=== PATIENT | male | born 1945 | race Caucasian/White ===

== ENCOUNTER → 2017-04-15 07:50 | Outpatient (CLI) | payer MEDICARE, OTHER, SELFPAY ==
[2017-04-15 07:59] LABS: Mucous, Urine 0 SEEN /hpf (<or=2+)
[2017-04-15 08:21] LABS: Color, Urine Yellow (Yellow); Glucose, Dipstick Normal (Normal); Ketone-Dipstick Negative (Negative); Leukocyte Esterase-Dipstick 100 /ul (Negative); Nitrite-Dipstick Negative (Negative); Occult Blood-Urine 10 /ul (Negative); Protein-Dipstick 30 mg/dl (Negative); Urine Bilirubin Dipstick Negative (Negative); Urine Clarity Clear (Clear); Urine Urobilinogen Normal (Normal)
[2017-04-15 08:29] LABS: Absolute Lymphocyte Count 2.73 X10^3/ul (0.83-4.51); Basophil# 0.03 X10^3/uL; Basophil% 0.3 % (0-1); Eosinophil# 0.41 X10^3/uL; Eosinophils% 4.6 % (0-5); Hematocrit 45.6 % (40-54); Hemoglobin 15.1 g/dl (13.0-16.5); Lymphocyte # 2.73 X10^3/ul (4.0); Lymphocyte % 30.4 % (19-41); Mean Corp Hgb Conc 33.1 g/gl (32-36); Mean Corpuscular Hgb 31.3 pg (27.0-32.0); Mean Corpuscular Volume 94.6 fL (80-94); Mean Platelet Vol. 10.2 fl (6.2-12.0); Monocyte# 0.83 X10^3/uL; Monocyte% 9.2 % (0-10); Neutrophil # 4.97 X10^3/uL (2.7-7.7); Neutrophil % 55.3 % (47-70); Platelet Count 208 K/mm3 (150-450); RBC Distribution Width CV 13.9 % (11.6-14.6); RBC Distribution Width SD 47.8 fl (35.1-43.9); Red Blood Count 4.82 M/mm3 (4.6-6.2)
[2017-04-15 08:37] LABS: Bacteria RARE /hpf (None Seen); Red Blood Cells-Urine 0-5 SEEN /hpf (0-5); Squamous Epithelial Cells - UA 0-5 SEEN /hpf (0-5); White Blood Cells 5-10 SEEN /hpf (0-5)
[2017-04-15 08:40] LABS: POSITIVE COUNT NO; POSITIVE DIFFERENTIAL NO; POSITIVE MORPHOLOGY NO
[2017-04-15 08:42] LABS: Microalbumin,Random Urine 46.4 mg/L (NO RANGE EST.); Microalbumin:Creatinine Ratio 17.2 mg/g CRE (<30 mg/g CRE)
[2017-04-15 09:03] LABS: AST(SGOT) 20 U/L (15-37); Alanine Aminotransfer ALT/SGPT 33 U/L (16-61); Albumin, Serum 3.5 g/dL (3.2-5.0); Alkaline Phosphatase 41 U/L (45-117); Anion Gap 4 (5-15); BUN 19 mg/dL (7-18); BUN/Creat Ratio 15.6 RATIO (10-20); Bilirubin, Direct 0.19 mg/dL (0.00-0.30); Calcium,Total 8.5 mg/dL (8.5-10.1); Chloride 106 mmol/L (98-107); Cholesterol 141 mg/dL (200); Creatinine, Serum 1.22 mg/dL (0.70-1.30); EST Glomerular Filtration Rate 62 mL/min (>60); Est Glom Filt Rate - Afr Amer 75 mL/min (>60); Globulin 3.6 g/dL (2.2-4.2); Glucose 107 mg/dL (74-106); High Density Lipoprotein 37 mg/dL; Potassium 3.8 mmol/L (3.5-5.1); Protein, Total 7.1 g/dL (6.4-8.2); Sodium Level 140 mmol/L (136-145); Triglycerides 133 mg/dL; Very Low Density Lipoprotein 27 mg/dL (5-40)
== END ==
PROVIDERS: Family Provider Internal Medicine; PCP Internal Medicine; Visit Provider Nurse Practitioner Family
DX: E78.5 Hyperlipidemia, unspecified (principal); Z79.899 Other long term (current) drug therapy; E03.9 Hypothyroidism, unspecified; E78.00 Pure hypercholesterolemia, unspecified; I25.10 Atherosclerotic heart disease of native coronary artery without angina pectoris
CPT/HCPCS: 36415; 80053; 80061; 81001; 82043; 82248; 82570; 84443; 85025

== ENCOUNTER → 2017-04-21 11:58 | Outpatient (CLI) | payer MEDICARE, OTHER, SELFPAY ==
[2017-04-21 13:12] LABS: PSA,Total- Diagnostic < 0.01 ng/mL (0.0-4.0)
== END ==
PROVIDERS: Family Provider Internal Medicine; PCP Internal Medicine; Visit Provider Urology
DX: C61 Malignant neoplasm of prostate (principal)
CPT/HCPCS: 36415; 84153

== ENCOUNTER → 2017-07-24 08:25 | Outpatient (CLI) | payer MEDICARE, OTHER, SELFPAY ==
[2017-07-24 09:38] LABS: PSA,Total- Diagnostic < 0.01 ng/mL (0.0-4.0)
== END ==
PROVIDERS: Family Provider Internal Medicine; PCP Internal Medicine; Visit Provider Urology
DX: C61 Malignant neoplasm of prostate (principal)
CPT/HCPCS: 36415; 84153

== ENCOUNTER → 2017-11-21 08:31 | Outpatient (CLI) | payer MEDICARE, OTHER, SELFPAY ==
[2017-11-21 09:09] LABS: Absolute Lymphocyte Count 2.34 X10^3/ul (0.83-4.51); Absolute Neutrophil Count 4.6 X10^3/uL (2.0-7.7); Basophil# 0.03 X10^3/uL; Basophil% 0.4 % (0-1); Eosinophil# 0.39 X10^3/uL; Eosinophils% 4.9 % (0-5); Hematocrit 46.3 % (40-54); Hemoglobin 15.4 g/dl (13.0-16.5); Lymphocyte # 2.34 X10^3/ul (4.0); Lymphocyte % 29.1 % (19-41); Mean Corp Hgb Conc 33.3 g/gl (32-36); Mean Corpuscular Hgb 31.4 pg (27.0-32.0); Mean Corpuscular Volume 94.5 fL (80-94); Mean Platelet Vol. 10.5 fl (6.2-12.0); Monocyte# 0.66 X10^3/uL; Monocyte% 8.2 % (0-10); Neutrophil % 57.3 % (47-70); Platelet Count 206 K/mm3 (150-450); RBC Distribution Width CV 13.9 % (11.6-14.6); RBC Distribution Width SD 47.9 fl (35.1-43.9)
[2017-11-21 09:10] LABS: POSITIVE COUNT NO; POSITIVE DIFFERENTIAL NO; POSITIVE MORPHOLOGY NO
[2017-11-21 09:47] LABS: AST(SGOT) 22 U/L (15-37); Alanine Aminotransfer ALT/SGPT 29 U/L (16-61); Albumin, Serum 3.6 g/dL (3.2-5.0); Alkaline Phosphatase 39 U/L (45-117); Anion Gap 4 (5-15); BUN 21 mg/dL (7-18); BUN/Creat Ratio 18.6 RATIO (10-20); Bilirubin, Direct 0.21 mg/dL (0.00-0.30); Calcium,Total 8.8 mg/dL (8.5-10.1); Chloride 108 mmol/L (98-107); Cholesterol 117 mg/dL (200); Creatinine, Serum 1.13 mg/dL (0.70-1.30); EST Glomerular Filtration Rate 67 mL/min (>60); Est Glom Filt Rate - Afr Amer 81 mL/min (>60); Globulin 3.5 g/dL (2.2-4.2); Glucose 101 mg/dL (74-106); High Density Lipoprotein 36 mg/dL; Potassium 4.1 mmol/L (3.5-5.1); Protein, Total 7.1 g/dL (6.4-8.2); Sodium Level 140 mmol/L (136-145); Thyroid Stim Hormone (TSH) 2.27 uIU/mL (0.358-3.74); Triglycerides 99 mg/dL; Very Low Density Lipoprotein 20 mg/dL (5-40)
[2017-11-23 12:06] LABS: CHOLESTEROL TOTAL 126 mg/dL (100-199); HDL-C 38 mg/dL (>39); HDL-P TOTAL 29.5 umol/L (>=30.5); SMALL LDL-P 538 nmol/L (<=527); TRIGLYCERIDES 102 mg/dL (0-149)
[2017-11-23 13:58] LABS: LDL SIZE 20.4 nm (>20.5); LDL-C 68 mg/dL (0-99); LDL-P 998 nmol/L (<1000); LP-IR SCORE ** 64 (<=45)
== END ==
PROVIDERS: Family Provider Internal Medicine; PCP Internal Medicine; Referring Provider Nurse Practitioner Family; Visit Provider Nurse Practitioner Family
DX: I25.10 Atherosclerotic heart disease of native coronary artery without angina pectoris (principal); E03.9 Hypothyroidism, unspecified; E78.00 Pure hypercholesterolemia, unspecified
CPT/HCPCS: 36415; 80053; 80061; 82248; 83704; 84443; 85025

== ENCOUNTER → 2018-01-13 11:02 | Outpatient (CLI) | payer MEDICARE, OTHER, SELFPAY ==
[2018-01-13 12:01] LABS: PSA,Total- Diagnostic < 0.01 ng/mL (0.0-4.0)
== END ==
PROVIDERS: Family Provider Internal Medicine; PCP Internal Medicine; Referring Provider Urology; Visit Provider Urology
DX: C61 Malignant neoplasm of prostate (principal)
CPT/HCPCS: 36415; 84153

== ENCOUNTER → 2018-04-29 11:36 | Outpatient (CLI) | payer MEDICARE, OTHER, SELFPAY ==
--- NOTE | 2018-04-29 11:43 | RAD_ITS ---
STUDY: X-RAY CHEST REASON FOR EXAM: Male, 73 years old. Cough. TECHNIQUE: PA and lateral chest. COMPARISON: 01/02/2017. FINDINGS: Median sternotomy. Hiatal hernia. Moderately large. Clear bilateral lungs. No cardiomegaly. Normal mediastinal silhouette, leonel, pleural margins, with no acute osseous or upper abdominal process. Scoliosis. Kyphosis. RAD/Chest PA and Lateral IMPRESSION: No acute cardiopulmonary process. Electronically Signed: Jaden Birmingham MD at 18:29 EST Tel , Service support ,
== END ==
PROVIDERS: Family Provider Internal Medicine; PCP Internal Medicine; Referring Provider Nurse Practitioner; Visit Provider Nurse Practitioner
DX: R05 Cough (principal)
CPT/HCPCS: 71046

== ENCOUNTER → 2018-05-25 08:37 | Outpatient (CLI) | payer MEDICARE, OTHER, SELFPAY ==
--- NOTE | 2018-05-25 08:39 | ECHOD_ITS ---
Reason For Study: MVP Procedure This was a 2D Doppler, Color Flow transthoracic echocardiogram. Exam performed in department. Left Ventricle Normal LV size. The estimated ejection fraction is 60 %. Stage 2 diastolic dysfunction. No regional wall motion abnormalities noted. Right Ventricle Normal RV size. Normal systolic function. Atria The left atrium is mildly enlarged. Normal right atrium. Mitral Valve Bileaflet diffuse mitral valve thickening. Posterior leaflet mitral valve prolapse. Mild-Moderate (1-2+) anteriorly directed mitral valve insufficiency. Tricuspid Valve Normal tricuspid valve. Mild (1+) tricuspid valve insufficiency. Pulmonary artery systolic pressure is 34 mmHg. Aortic Valve Trisinus/trileaflet aortic valve. Mild (1+) eccentric aortic valve insufficiency. Pulmonic Valve Normal pulmonic valve. Great Vessels Normal aortic root. The pulmonary artery is normal size. Normal inferior vena cava. Pericardium/Pleural No pericardial effusion. MMode/2D Measurements & Calculations LVIDd: 5.2 cm IVSd: 1.00 cm Ao root diam: 3.4 cm LVIDs: 2.7 cm LVPWd: 1.0 cm RVDd: 3.9 cm FS: 48.6 % LAV(MOD-bp): 60.3 ml LA A4 area: 21.9 cm2 LA dimension(2D): 3.9 cm LAV(MOD-bp) Indexed: 29.8 ml/m2 LAV(MOD-sp2): 55.6 ml LAV(MOD-sp4): 63.6 ml RA A4 area: 14.3 cm2 Doppler Measurements & Calculations MV E max bill: 126.8 cm/sec Lat Peak E' Bill: 12.7 cm/sec Med Peak E' Bill: 6.4 cm/sec MV A max bill: 70.7 cm/sec E/E' lat: 10.0 E/E' med: 19.8 MV E/A: 1.8 Ao V2 max: 157.7 cm/sec AI max bill: 317.6 cm/sec LV V1 max: 107.5 cm/sec Ao max P.0 mmHg AI max P.3 mmHg LV V1 max P.6 mmHg AI dec slope: 169.6 cm/sec2 AI P1/2t: 548.5 msec PA V2 max: 168.9 cm/sec TR max bill: 274.9 cm/sec TR max P.3 mmHg Interpretation Summary Normal LV size. The estimated ejection fraction is 60 %. Stage 2 diastolic dysfunction. Mild (1+) tricuspid valve insufficiency. Pulmonary artery systolic pressure is 34 mmHg. Compared to prior study, there is no significant change. Ordering Physician: Dax Rodriguez Referring Physician: Shira Borjas M.D. Performed By: Inés, Caty, RDCS
== END ==
PROVIDERS: Family Provider Internal Medicine; PCP Internal Medicine; Referring Provider Internal Medicine Cardiovascular Disease; Visit Provider Internal Medicine Cardiovascular Disease
DX: Z98.890 Other specified postprocedural states (principal)
CPT/HCPCS: 93306

== ENCOUNTER → 2018-06-01 08:38 | Outpatient (CLI) | payer MEDICARE, OTHER, SELFPAY ==
[2017-11-25 10:42] VITALS: BMI 25.2
[2018-06-01 10:24] LABS: AST(SGOT) 28 U/L (15-37); Alanine Aminotransfer ALT/SGPT 36 U/L (16-61); Albumin, Serum 3.7 g/dL (3.2-5.0); Alkaline Phosphatase 40 U/L (45-117); Bilirubin, Direct 0.21 mg/dL (0.00-0.30); Cholesterol 125 mg/dL (200); Globulin 3.1 g/dL (2.2-4.2); High Density Lipoprotein 39 mg/dL; Protein, Total 6.8 g/dL (6.4-8.2); Triglycerides 123 mg/dL; Very Low Density Lipoprotein 25 mg/dL (5-40)
== END ==
PROVIDERS: Family Provider Internal Medicine; PCP Internal Medicine; Referring Provider Nurse Practitioner Family; Visit Provider Nurse Practitioner Family
DX: E78.5 Hyperlipidemia, unspecified (principal)
CPT/HCPCS: 36415; 80061; 80076

== ENCOUNTER → 2018-06-11 12:07 | Outpatient (CLI) | payer MEDICARE, OTHER, SELFPAY ==
[2018-06-02 09:50] VITALS: BMI 25.5
[2018-06-15 12:06] LABS: Rubeola IgG Ab > 300.0 AU/mL (Immune >29.9)
== END ==
PROVIDERS: Family Provider Internal Medicine; PCP Internal Medicine; Referring Provider Internal Medicine; Visit Provider Internal Medicine
DX: Z78.9 Other specified health status (principal)
CPT/HCPCS: 36415; 86765

== ENCOUNTER → 2018-07-24 | Outpatient (CLI) | payer MEDICARE, OTHER, SELFPAY ==
[2018-06-02 09:50] VITALS: BMI 25.5
[2018-07-24 13:01] LABS: PSA,Total- Diagnostic < 0.01 ng/mL (0.0-4.0)
== END | disposition home or self-care (01) ==
LOC: MTLAB 10:26
PROVIDERS: Family Provider Internal Medicine; PCP Internal Medicine; Referring Provider Urology; Visit Provider Urology
DX: C61 Malignant neoplasm of prostate (principal)
CPT/HCPCS: 36415; 84153

== ENCOUNTER 2018-10-07 11:05 | Observation (INO) | payer MEDICARE, OTHER, SELFPAY ==
[2018-06-02 09:50] VITALS: BMI 25.5
[2018-10-07] VITALS (11 sets, daily range): BP systolic 115–149; BP diastolic 63–77; PULSE 49–65; RESP 16–19; TEMP 36.7–37.1; O2SAT 95–99; BMI 22.1; BMI 24.7
--- NOTE | 2018-10-07 11:17 | EKG12_ITS ---
Test Reason : Blood Pressure : / mmHG Vent. Rate : 055 BPM Atrial Rate : 055 BPM P-R Int : 162 ms QRS Dur : 134 ms QT Int : 450 ms P-R-T Axes : 042 -50 011 degrees QTc Int : 430 ms Sinus bradycardia Left axis deviation Left ventricular hypertrophy with QRS widening Abnormal ECG Confirmed by ALEX DAWN ([id number]), metropolitan editor RAPHAEL LEVINE ([id number]) on 10/08/2018 2:22:33 PM Referred By: SHERRY/SHAMA Confirmed By:ALEX DAWN
[2018-10-07 11:36] LABS: Absolute Lymphocyte Count 1.69 X10^3/uL (0.83-4.51); Basophil# 0.02 X10^3/uL; Basophil% 0.3 % (0-1); Eosinophil# 0.36 X10^3/uL; Eosinophils% 5.2 % (0-5); Hematocrit 46.5 % (40-54); Hemoglobin 15.9 g/dL (13.0-16.5); Lymphocyte # 1.69 X10^3/ul (4.0); Lymphocyte % 24.4 % (19-41); Mean Corp Hgb Conc 34.2 g/dL (32-36); Mean Corpuscular Hgb 32.8 pg (27.0-32.0); Mean Corpuscular Volume 95.9 fL (80-94); Mean Platelet Vol. 10.3 fl (6.2-12.0); Monocyte# 0.86 X10^3/uL; Monocyte% 12.4 % (0-10); NRBC Flagged by Analyzer 0 % (0-5); Neutrophil # 3.99 X10^3/uL (2.7-7.7); Neutrophil % 57.4 % (47-70); Platelet Count 196 K/mm3 (150-450); RBC Distribution Width CV 13.5 % (11.6-14.6); RBC Distribution Width SD 48.1 fl (35.1-43.9); Red Blood Count 4.85 M/mm3 (4.6-6.2); White Blood Count 6.9 K/mm3 (4.4-11.0)
--- NOTE | 2018-10-07 11:40 | RAD_ITS ---
STUDY: X-RAY CHEST REASON FOR EXAM: Male, 73 years old. Chest pain, shortness of breath. TECHNIQUE: Single AP portable view of the chest. COMPARISON: 04/29/2018 FINDINGS: Status post median sternotomy. The lungs are clear and expanded. There is no demonstrated pleural abnormality. Normal size heart. Suspect a moderate-sized hiatal hernia. Normal visualized pulmonary arteries. Normal visualized aortic arch and descending thoracic aorta. Normal visualized thoracic spine. Normal visualized ribs, clavicles, and shoulders. There is no demonstrated abnormality of the visualized soft tissue structures of the upper abdomen. RAD/Chest 1 View (Portable) IMPRESSION: No active disease. Electronically Signed: Jaden Solis MD at 12:01 EDT Tel , Service support ,
[2018-10-07 11:52] LABS: Anion Gap 4 (5-15); BUN 24 mg/dL (7-18); BUN/Creat Ratio 18.8 RATIO (10-20); Calcium,Total 8.6 mg/dL (8.5-10.1); Chloride 106 mmol/L (98-107); Creatinine, Serum 1.28 mg/dL (0.70-1.30); EST Glomerular Filtration Rate 58 mL/min (>60); Est Glom Filt Rate - Afr Amer 70 mL/min (>60); Estimated Creatinine Clearance 47.99 ml/min; Glucose 88 mg/dL (74-106); Potassium 4.1 mmol/L (3.5-5.1); Sodium Level 137 mmol/L (136-145)
--- NOTE | 2018-10-07 11:54 | ED.DCSUM_ITS ---
- ER Visit Summary Date of Service: 10/07/18 Chief Complaint: Diaphoretic and nauseated in the yard. History of Present Illness: The patient is a 73 M pulling weeds in his yard. He stood up he felt nauseated, diaphoretic and lightheaded. Denied any chest pain. Second time he felt like this was more than 20 years ago he had an DC. At that time he had a triple bypass. He states he has had a cardiac catheterization in the last 2 to 3 years which showed 1 of his bypasses was occluded to still open. He is not needing any cardiac stents. He also has mitral valve prolapse which are watching to see if he will need valve surgery. He denies any recent exertional chest pain. Said he presented atypically when he had his initial cardiac presentation 20 years ago. He does have mild exertional dyspnea. Physical Examination: Older male no acute distress. Vital signs are stable a febrile. Pulse ox 90% on 2 L no hypoxia. H EENT exam unremarkable. Neck nontender no JVD. Lungs clear to auscultation bilaterally. Heart bradycardic rate of 55 with a 4-6 systolic ejection murmur consistent with mitral valve prolapse. Abdomen soft nontender normal bowel sounds no peritoneal signs. Patient moving all 4 extremities. Calves are nontender without edema or cords. Neurologically is awake and alert. Test Results: Initial EKG shows sinus rhythm with sinus bradycardia rate of 55 with no acute signs of DC or ischemia. He does have LVH. This is unchanged from an EKG of 2012. Chest x-ray shows normal cardiac silhouette mediastinum. One view read both by myself and the radiologist. CBC was normal white count 6. Hemoglobin 15. Chemistries unremarkable creatinine 1.2. Normal. Emergency Department Course and Treatment: Patient undergo cardiac evaluation. Repeat exam at 1328 PM the patient is doing well. He and I and his discussed all his test results at length. Due to his atypical presentation with his initial cardiac disease 20 years ago and this being a similar presentation with known coronary disease we are going to have him admitted for further evaluation. I will speak to the hospitalist and encouraged him to obtain a cardiology consult. Treatment Plan: Speak to the hospitalist about PCU admission and cardiology consult. Disposition: Admission Impression: Acute atypical exertional episode of uncertain etiology History of CAD with a prior triple bypass with known This note was generated with Dragon dictation software. It may contain incorrect words, spelling, and punctuation that were not noted in review of the chart prior to signing ED Disposition - Plan for ED Patient: Referrals: Shira Borjas DO [Primary Care Provider] -
--- NOTE | 2018-10-07 13:39 | HP.PCM_ITS ---
Problem List (1) Chest pain Status: Acute Qualifiers: Chest pain type: unspecified Qualified Code(s): R07.9 - Chest pain, unspecified (2) Hypothyroidism Status: Chronic Qualifiers: Hypothyroidism type: unspecified Qualified Code(s): E03.9 - Hypothyroidism, unspecified (3) Atherosclerosis of coronary artery bypass graft of ambler heart without angina pectoris Status: Chronic Comment: Known occluded SVG to CX per [facility] 01/06/[address] Rodriguez @ [facility] [place] (4) Hyperlipidemia Status: Chronic Qualifiers: Hyperlipidemia type: pure hypercholesterolemia Qualified Code(s): E78.00 - Pure hypercholesterolemia, unspecified; E78.0 - Pure hypercholesterolemia (5) Nonrheumatic mitral valve stenosis with insufficiency Status: Chronic (6) Aortocoronary bypass status Status: Chronic Comment: CABG with saphenous vein grafts Diag 1 CFX, SWANSON graft to LAD, 1994; (7) Old myocardial infarction Status: Chronic (8) Prostate cancer Status: Chronic History of Present Illness Date of Admission: 10/07/18 Chief Complaint: Chest pain, near syncope The patient is a 73 y/o M w/ PMHx: CAD s/p CABG x 3, HTN, HLD, Hx Prostate CA s/p prostatectomy, Valvular Heart Disease (MV), Hypothyroidism who presents to the [facility] [place] ED on 10/07/18 with history of working outside, pulling weeds earlier in the morning with sudden onset once he had been out for this amount of time of lightheadedness, nausea following standing up from pulling leads with mild dyspnea with no associated chest pain although he does admit several episodes intermittently of exertional dyspnea which he specifically notes has been occurring while he is walking his dog. Work-up in the ED included T 98.1, heart rate 62, BP 149/72, respiratory 18, 97% on room air, BC with WBC 6.9, hemoglobin 15.9, platelet 196 without evidence left shift, BMP not market appearing, troponin less than 0.015, chest x-ray with no acute cardiopulmonary findings, EKG with SB without acute evidence of ischemia. In the ED patient administered aspirin, Tylenol therapies. Past Medical History Past Medical History (Chronic Problems): Chronic Problems (Last Reviewed 06/02/18 @ 09:59 by Dax Rodriguez MD) Hypothyroidism (Chronic) History of left heart catheterization (Chronic) 1994 prior to CABG; 06/21/2003 @ [facility] per Dr. Beaulieu; 01/06/[address] Rodriguez @ [facility] [place] Atherosclerosis of coronary artery bypass graft of ambler heart without angina pectoris (Chronic) Known occluded SVG to CX per [facility] 01/06/[address] Rodriguez @ [facility] [place] Hyperlipidemia (Chronic) Atherosclerotic heart disease of ambler coronary artery without angina pectoris (Chronic) CABG X 3 12/15/1994:SWANSON to LAD, SVG to Dx and SVG to Cx Nonrheumatic mitral valve stenosis with insufficiency (Chronic) Aortocoronary bypass status (Chronic) CABG with saphenous vein grafts Diag 1 CFX, SWANSON graft to LAD, 1994; terminologist use of drug (Chronic) Old myocardial infarction (Chronic) Nonrheumatic mitral (valve) prolapse (Chronic) Prostate cancer (Chronic) Medical History: Medical History (Last Reviewed 06/02/18 @ 09:59 by Dax Rodriguez MD) Hypothyroidism (Chronic) E03.9 Atherosclerosis of coronary artery bypass graft of ambler heart without angina pectoris (Chronic) I25.810 Known occluded SVG to CX per [facility] 01/06/[address] Rodriguez @ [facility] [place] Hyperlipidemia (Chronic) E78.5 Atherosclerotic heart disease of ambler coronary artery without angina pectoris (Chronic) I25.10 CABG X 3 12/15/1994:SWANSON to LAD, SVG to Dx and SVG to Cx Nonrheumatic mitral valve stenosis with insufficiency (Chronic) I34.2 Old myocardial infarction (Chronic) I25.2 Nonrheumatic mitral (valve) prolapse (Chronic) I34.1 Prostate cancer (Chronic) C61 Essential hypertension I10 Allergies bee venom protein (honey bee) Allergy (Unknown, Verified 06/02/18 09:49) Unknown Home Medications: Ambulatory Orders Medication Instructions Recorded Aspirin [Aspirin, Baby] 81 mg PO DAILY 01/14/14 Cholecalciferol (VIT D3) [Vitamin 1,000 unit PO DAILY 01/14/14 D3] Multivitamins,Therapeutic 1 tab PO DAILY 01/14/14 [Multivitamin] Latanoprost 0.005% [Xalatan 1 drp EACH EYE QHS 01/03/17 Opthalmic] [place]-3 Fatty Acids/Fish Oil 1 ea PO DAILY 01/03/17 [[place] 3 Fish Oil Softgel] metoprolol tartrate 25 mg tablet 12.5 mg PO BID #90 tab 08/11/17 ramipril 10 mg capsule 10 mg PO BID #180 cap 08/11/17 hydrochlorothiazide 25 mg tablet 12.5 mg PO DAILY #45 tab 04/13/18 levothyroxine 100 mcg tablet 100 mcg PO DAILY #90 tab 06/10/18 Cinnamon Bark [Cinnamon] 500 mg PO DAILY 10/07/18 Magnesium Oxide [Magnesium] 500 mg PO DAILY 10/07/18 Rosuvastatin Calcium 5 mg PO QHS 10/07/18 Ubidecarenone/Vit E Acet [Co Q-10 1 cap PO DAILY 10/07/18 100 mg Softgel] Vitamin B Complex [B Complex # 1] 1 tab PO DAILY 10/07/18 Surgical History: Surgical History (Last Reviewed 06/02/18 @ 09:59 by Dax Rodriguez MD) History of left heart catheterization (Chronic) Z98.890 1994 prior to CABG; 06/21/2003 @ [facility] per Dr. Beaulieu; 01/06/[address] Rodriguez @ [facility] [place] Aortocoronary bypass status (Chronic) Z95.1 CABG with saphenous vein grafts Diag 1 CFX, SWANSON graft to LAD, 1994; H/O prostatectomy (Resolved) Z98.890, Z90.79 March [address] Linares Surgical History: - - CABG x 3, prostatectomy, tonsillectomy, pilonidal cyst surgery, left elbow surgery with hardware. Psychiatric History: No pertinent psych hx Lives: Spouse/ Significant Other Smoking Status: Never smoker Tobacco Use: Non-smoker Alcohol: Occasional Drugs: None - *Family History Maternal Family History: Family History (Last Reviewed 06/02/18 @ 09:59 by Dax Rodriguez MD) Father [place]'s disease Mother CAD (coronary artery disease) Myocardial infarction Brother CAD (coronary artery disease) history of cabg Brother CAD (coronary artery disease) Stented coronary artery Diabetes Sister CAD (coronary artery disease) Myocardial infarction Hypertension History Items: - - She notes a market maternal family history of heart disease, coronary disease, HI. Paternal Family History: Family History (Last Reviewed 06/02/18 @ 09:59 by Dax Rodriguez MD) Father [place]'s disease Mother CAD (coronary artery disease) Myocardial infarction Brother CAD (coronary artery disease) history of cabg Brother CAD (coronary artery disease) Stented coronary artery Diabetes Sister CAD (coronary artery disease) Myocardial infarction Hypertension History Items: - - Patient notes a paternal family history of [place]'s disease. Review of Systems Constitutional: Reports: Malaise, Weakness, Fatigue. Denies: Chills, Fever, Weight Change HEENT: Denies: Head Aches, Sinus Congestion, Sinus Drainage Cardiovascular: Reports: Light Headedness, - - Dizziness. Denies: Chest Pain, Palpitations Respiratory: Reports: Shortness of Breath, Shortness of breath upon exertion. Denies: Cough, Shortness of breath at rest, Sputum production Gastrointestinal: Reports: Nausea. Denies: Abdominal Pain, Vomiting Genitourinary: Denies: Dysuria Musculoskeletal: Denies: Joint Pain, Joint Tenderness Skin: Denies: Rash, Wounds Neurological: Denies: Numbness, Tingling, Focal weakness Psychiatric: Denies: Anxiety, Depression, Homicidal Ideations, Suicidal Ideations Hematologic/ Lymphatic: Denies: Easy Bruising, Easy Bleeding VTE Information - Inpt Only VTE Present on Admission: No VTE Mechan Device Prophylaxis: SCD's VTE Pharm Prophylaxis ordered?: Yes Patient Problems: Active and Suspected Problems (Last Reviewed 06/02/18 @ 09:59 by Dax Rodriguez MD) Chest pain (Acute) Subjective: Seated upright in ED bed, no acute distress, denies any current symptoms. Objective: Physical Examination: General: awake, alert, oriented x 3 and cooperative, seated upright in the ED bed in no apparent distress. Skin: normal color, turgor, no icterus, cyanosis. HEENT: AT/NC, EOMI, PERRLA, MMM, no carotid bruits or JVD noted. Lungs: CTA bilaterally, moderate effort, mild decrease BL bases, no rales, ronchi or wheezing. Heart: Mildly bradycardic with regular rhythm; no gallop, rub audible, + SM. Abdomen: soft, NTTP, ND, normal BS, no HSM. Extremities: no cyanosis, clubbing, or edema. Neurological: patient awake, alert, oriented x 3; cognitive function intact; pupils equally reactive to light and accomodation; cranial nerves II-XII grossly normal, moving all 4 extremities, no focal deficits, strength mildly global decrease secondary to acute presentation. Psychiatric: affect appears normal, no acute evidence of depressive or anxiety feelings. - Physical Exam Vital Signs Temp Pulse Resp BP Pulse Ox 98.1 F 55 L 18 115/68 98 10/07/18 11:06 10/07/18 13:12 10/07/18 13:12 10/07/18 13:12 10/07/18 13:12 Oxygen Flow Rate (L/min) 2 Oxygen Delivery Method Nasal Cannula Weight: 150 lb Body Mass Index (BMI) 22.1 Laboratory Tests Past 24 Hrs 10/07/18 10/07/18 11:25 11:25 WBC 6.9 RBC 4.85 Hgb 15.9 Hct 46.5 MCV 95.9 H MCH 32.8 H MCHC 34.2 RDW Std Deviation 48.1 H RDW Coeff of Darian 13.5 Plt Count 196 MPV 10.3 Immature Gran % (Auto) 0.300 Neut % (Auto) 57.4 Lymph % (Auto) 24.4 [place] % (Auto) 12.4 H Eos % (Auto) 5.2 H Baso % (Auto) 0.3 Absolute Neuts (auto) 4.0 Absolute Lymphs (auto) 1.69 Nucleated RBC % 0 Sodium 137 Potassium 4.1 Chloride 106 Carbon Dioxide 27.0 Anion Gap 4 L BUN 24 H Creatinine 1.28 Estim Creat Clear Calc 47.99 Est GFR (MDRD) Af Amer 70 Est GFR (MDRD) Non-Af 58 L BUN/Creatinine Ratio 18.8 Glucose 88 Calcium 8.6 Troponin I < 0.015 Assessment/Plan All Active Problems (Last Reviewed 06/02/18 @ 09:59 by Dax Rodriguez MD) Chest pain (Acute) Elevated PSA (Acute) Urgency-frequency syndrome (Acute) H/O prostatectomy (Resolved) The patient is a 73 y/o M w/ PMHx: CAD s/p CABG x 3, HTN, HLD, Hx Prostate CA s/p prostatectomy, Valvular Heart Disease (MV), Hypothyroidism who presents to the [facility] [place] ED on 10/07/18 with history of working outside, pulling weeds earlier in the morning with sudden onset once he had been out for this amount of time of lightheadedness, nausea following standing up from pulling leads with mild dyspnea with no associated chest pain although he does admit several episodes intermittently of exertional dyspnea. 1. Atypical chest Pain: Work-up in the ED included T 98.1, heart rate 62, BP 149/72, respiratory 18, 97% on room air, BC with WBC 6.9, hemoglobin 15.9, platelet 196 without evidence left shift, BMP not market appearing, troponin less than 0.015, chest x-ray with no acute cardiopulmonary findings, EKG with SB without acute evidence of ischemia. February 2017 cardiac catheterization as noted which demonstrated patency to the left internal mammary artery to the left anterior descending artery as well as the saphenous vein graft to the diagonal branch. Given presentation which is very similar to his prior 20 years earlier with HI, CABG at that time to be cautious will maintain on telemetry monitoring, cycle cardiac enzymes and if remain unremarkable would plan to pursue a.m. c ardiac stress testing. Cardiology consulted per discussion with patient and family. ASA, NG, morphine. FLP in a.m., mag pending. 2. CAD: s/p CABG x 3 specifically left internal mammary artery to left anterior descending artery saphenous vein graft to diagonal branch and obtuse marginal branch, following w/ Dr. Rodriguez, continue aspirin, metoprolol, ramipril, statin therapy. From review of record patient did have cardiac catheterization February 2017 which demonstrated patency of his left internal mammary artery to the left anterior descending artery as well as the saphenous vein graft to diagonal branch. 3. Hypertension: Continue home regimen including hydrochlorothiazide, metoprolol, ramipril, PRN hydralazine. 4. Hyperlipidemia: Continue home statin regimen. AM FLP. 5. Hypothyroidism: Continue home synthroid regimen, TSH pending. 6. History of prostate cancer: Status post prostatectomy, remission. 7. Valvular heart disease: ECHO 05/25/18 with normal LV size, EF 60%, stage II diastolic dysfunction, mild TBI, PASP 34 mmHg, similar to prior study. 8. DVT prophylaxis: SCDs, Lovenox. Code Visit OBSV E&M: 97993 Initial observation care L3
--- NOTE | 2018-10-07 14:43 | EKG12_ITS ---
Test Reason : ADMISSION Blood Pressure : / mmHG Vent. Rate : 053 BPM Atrial Rate : 053 BPM P-R Int : 168 ms QRS Dur : 130 ms QT Int : 474 ms P-R-T Axes : 032 -51 -06 degrees QTc Int : 444 ms Sinus bradycardia Left axis deviation Left ventricular hypertrophy with QRS widening Abnormal ECG When compared with ECG of 07-OCT-2018 11:13, MANUAL COMPARISON REQUIRED, DATA IS UNCONFIRMED Confirmed by GOGO LADD, GAVIOTA ([id number]), content editor RAPHAEL LEVINE ([id number]) on 10/13/2018 1:58:38 PM Referred By: JAMES Confirmed By:ADE BOWENS MD
[2018-10-07 15:09] LABS: Thyroid Stim Hormone (TSH) 2.48 uIU/mL (0.358-3.74)
--- NOTE | 2018-10-07 15:29 | ECHOD_ITS ---
Reason For Study: MITRAL VALVE PROLAPSE Procedure This was a 2D Doppler, Color Flow transthoracic echocardiogram. Exam performed in department. Left Ventricle Normal size and thickness. The estimated ejection fraction is 65 %. Stage 2 diastolic dysfunction. No regional wall motion abnormalities noted. Right Ventricle Moderately dilated right ventricle. Normal systolic function. Atria The left atrium is mildly enlarged. Normal right atrium. Normal atrial septum. Mitral Valve Mild diffuse mitral valve thickening. Posterior leaflet mitral valve prolapse. Mild-Moderate (1-2+) anteriorly directed mitral valve insufficiency. Tricuspid Valve Normal tricuspid valve. Mild (1+) tricuspid valve insufficiency. Right ventricular systolic pressure estimated to be 37 mmHg. Mild pulmonary hypertension. Aortic Valve Trisinus/trileaflet aortic valve. Mild diffuse aortic valve thickening. Trivial aortic valve insufficiency. Pulmonic Valve Normal pulmonic valve. Mild (1+) pulmonic valve insufficiency. Great Vessels Normal aortic root. Normal arch. Normal inferior vena cava. Inferior vena cava collapse with sniff. Pericardium/Pleural No pericardial effusion. MMode/2D Measurements & Calculations LVIDd: 5.4 cm IVSd: 0.94 cm Ao root diam: 3.1 cm LVIDs: 3.2 cm LVPWd: 0.76 cm RVDd: 4.2 cm FS: 40.4 % LAV(MOD-bp): 65.6 ml LVAd ap4: 33.2 cm2 SV(MOD-sp4): 85.5 ml LAV(MOD-bp) Indexed: 33.5 ml/m2 EDV(MOD-sp4): 114.2 ml LAV(MOD-sp2): 71.6 ml EDV(sp4-el): 121.6 ml LAV(MOD-sp4): 57.5 ml LVAs ap4: 14.7 cm2 ESV(MOD-sp4): 28.7 ml ESV(sp4-el): 29.7 ml EF(MOD-sp4): 74.9 % EF(sp4-el): 75.5 % SV(sp4-el): 91.8 ml LA A4 area: 20.0 cm2 LA dimension(2D): 4.4 cm RA A4 area: 14.5 cm2 Time Measurements MV dec time: 0.19 sec Doppler Measurements & Calculations MV E max bill: 111.4 cm/sec Lat Peak E' Bill: 14.4 cm/sec Med Peak E' Bill: 7.4 cm/sec MV A max bill: 58.6 cm/sec E/E' lat: 7.7 E/E' med: 15.0 MV E/A: 1.9 Ao V2 max: 139.4 cm/sec AI max bill: 327.3 cm/sec LV V1 max: 84.3 cm/sec Ao max P.8 mmHg AI max P.9 mmHg LV V1 max P.8 mmHg AI dec slope: 168.6 cm/sec2 AI P1/2t: 568.6 msec PA V2 max: 163.2 cm/sec PI dec slope: 126.1 cm/sec2 TR max bill: 278.8 cm/sec TR max P.1 mmHg Interpretation Summary The estimated ejection fraction is 65 %. Stage 2 diastolic dysfunction. Moderately dilated right ventricle. The left atrium is mildly enlarged. Posterior leaflet mitral valve prolapse. Mild-Moderate (1-2+) anteriorly directed mitral valve insufficiency. Mild (1+) tricuspid valve insufficiency. Right ventricular systolic pressure estimated to be 37 mmHg. Mild pulmonary hypertension. Trivial aortic valve insufficiency. Compared to echo report dated 05/25/2018, LV function has remained the same, Moderate RV enlargement is now noted and degree of MR has remained the same. Ordering Physician: Enoch Aguilar Referring Physician: HILTON JAY Performed By: Savi Shaffer RDCS
[2018-10-07] MEDS: 0.9% Normal Saline 1,000 ML 100 ML IV (15:46)
[2018-10-07] MEDS: Clopidogrel Bisulfate 300 MG Tablet PO (15:56)
--- NOTE | 2018-10-07 15:57 | CON.PCM_ITS ---
Problem List (1) Chest pain Status: Acute Qualifiers: Chest pain type: unspecified Qualified Code(s): R07.9 - Chest pain, unspecified (2) History of left heart catheterization Status: Chronic Comment: 1994 prior to CABG; 06/21/2003 @ [facility] per Dr. Beaulieu; 01/06/[address] 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 Rodriguez @ [facility] (4) Hyperlipidemia Status: Chronic Qualifiers: Hyperlipidemia type: pure hypercholesterolemia Qualified Code(s): E78.00 - Pure hypercholesterolemia, unspecified; E78.0 - Pure hypercholesterolemia (5) Atherosclerotic heart disease of telida coronary artery without angina pectoris Status: Chronic Qualifiers: [place] vs. transplanted heart: telida heart Qualified Code(s): I25.10 - Atherosclerotic heart disease of telida coronary artery without angina pectoris Comment: CABG X 3 12/15/1994:SWANSON to LAD, SVG to Dx and SVG to Cx (6) Nonrheumatic mitral valve stenosis with insufficiency Status: Chronic (7) Aortocoronary bypass status Status: Chronic Comment: CABG with saphenous vein grafts Diag 1 CFX, SWANSON graft to LAD, 1994; Reason for Consult Date of Consultation: 10/07/18 Reason for Consultation: Status post CABG, nausea, coronary disease History of Present Illness: The patient is a 73 year old M, patient of Dr. Rodriguez's with a history of hypertension, hypercholesterolemia, nondiabetic, non-smoker, status post CABG x3 vessels at [facility] by Dr. Randall in 1995. At that time he received a SWANSON to the LAD, saphenous vein graft to the diagonal, and a saphenous vein graft to the left circumflex. Patient had a repeat catheterization on 01/06/[address] Rodriguez which demonstrated severe telida LAD and diagonal disease, nonobstructive disease of the dominant left circumflex, widely patent SWANSON to the LAD, widely patent saphenous vein graft to the diagonal, and occluded saphenous vein graft to the circumflex system. He had a nondominant right coronary artery and normal LV function. In addition the patient has a history of mitral valve prolapse with 1-2+ mitral regurgitation by echocardiogram in the recent past. In addition he has a history of prostate cancer status post prostatectomy. He has had no overt chest pain or angina. It appears his anginal equivalent is nausea. Recently he had suffered from diarrhea in the last 24 to 36 hours, while he was out pulling weeds today he developed nausea and dizziness similar to his previous anginal presentation in 1995 prior to his bypass surgery. Out of an abundance of caution he sought medical attention [facility] where an EKG was performed which showed normal sinus rhythm and left anterior hemiblock, no acute changes. His initial troponin was negative. He is currently chest pain and symptomatic free. An additional history he denies any exertional chest pain, angina, nausea, vomiting. He exercises several times per week without any difficulty or change in his symptoms. [] Past Medical History Allergies/Adverse Reactions: Allergies bee venom protein (honey bee) Allergy (Unknown, Verified 10/07/18 15:18) hives/anaphylaxis Home Medications: Ambulatory Orders Medication Instructions Recorded Aspirin [Aspirin, Baby] 81 mg PO DAILY 01/14/14 Cholecalciferol (VIT D3) [Vitamin 1,000 unit PO DAILY 01/14/14 D3] Multivitamins,Therapeutic 1 tab PO DAILY 01/14/14 [Multivitamin] Latanoprost 0.005% [Xalatan 1 drp EACH EYE QHS 01/03/17 Opthalmic] [place]-3 Fatty Acids/Fish Oil 1 ea PO DAILY 01/03/17 [[place] 3 Fish Oil Softgel] metoprolol tartrate 25 mg tablet 12.5 mg PO BID #90 tab 08/11/17 ramipril 10 mg capsule 10 mg PO BID #180 cap 08/11/17 hydrochlorothiazide 25 mg tablet 12.5 mg PO DAILY #45 tab 04/13/18 levothyroxine 100 mcg tablet 100 mcg PO DAILY #90 tab 06/10/18 Cinnamon Bark [Cinnamon] 500 mg PO DAILY 10/07/18 Magnesium Oxide [Magnesium] 500 mg PO DAILY 10/07/18 Rosuvastatin Calcium 5 mg PO QHS 10/07/18 Ubidecarenone/Vit E Acet [Co Q-10 1 cap PO DAILY 10/07/18 100 mg Softgel] Vitamin B Complex [B Complex # 1] 1 tab PO DAILY 10/07/18 Past Medical History (Chronic Problems): Chronic Problems (Last Reviewed 06/02/18 @ 09:59 by Dax Rodriguez MD) Hypothyroidism (Chronic) History of left heart catheterization (Chronic) 1994 prior to CABG; 06/21/2003 @ [facility] per Dr. Beaulieu; 01/06/[address] 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 Rodriguez @ [facility] Hyperlipidemia (Chronic) Atherosclerotic heart disease of telida coronary artery without angina pectoris (Chronic) CABG X 3 12/15/1994:SWANSON to LAD, SVG to Dx and SVG to Cx Nonrheumatic mitral valve stenosis with insufficiency (Chronic) Aortocoronary bypass status (Chronic) CABG with saphenous vein grafts Diag 1 CFX, SWANSON graft to LAD, 1994; jail use of drug (Chronic) Old myocardial infarction (Chronic) Nonrheumatic mitral (valve) prolapse (Chronic) Prostate cancer (Chronic) Surgical History: - - CABG x 3, prostatectomy, tonsillectomy, pilonidal cyst surgery, left elbow surgery with hardware. Psychiatric History: No pertinent psych hx - *Family History Maternal Family History: Family History (Last Reviewed 06/02/18 @ 09:59 by Dax Rodriguez MD) Father Rohini's disease Mother CAD (coronary artery disease) Myocardial infarction Brother CAD (coronary artery disease) history of cabg Brother CAD (coronary artery disease) Stented coronary artery Diabetes Sister CAD (coronary artery disease) Myocardial infarction Hypertension History Items: - - She notes a market maternal family history of heart disease, coronary disease, [place]. Paternal Family History: Family History (Last Reviewed 06/02/18 @ 09:59 by Dax Rodriguez MD) Father Rohini's disease Mother CAD (coronary artery disease) Myocardial infarction Brother CAD (coronary artery disease) history of cabg Brother CAD (coronary artery disease) Stented coronary artery Diabetes Sister CAD (coronary artery disease) Myocardial infarction Hypertension History Items: - - Patient notes a paternal family history of Slayden's disease. Lives: Spouse/ Significant Other Smoking Status: Never smoker Tobacco Use: Non-smoker Alcohol: Occasional Drugs: None Review of Systems - Review of Systems General: Denies: Fever, Night Sweats, Fatigue Cardiovascular: Denies: Chest Discomfort, Shortness of Breath, Orthopnea, PND, Peripheral Edema, Palpitations, Lightheadedness, Dizziness, Near Syncope, Syncope Respiratory: Denies: Cough, Sputum Production, Hemoptysis Gastrointestinal: Reports: Nausea. Denies: Hematemesis, Hematochezia, Melena Genitourinary: Denies: Dysuria, Hematuria Skin: Denies: Rash Subjectve: Patient resting comfortably, no acute distress. Objective: Vital Signs Temp Pulse Resp BP Pulse Ox 98.7 F 50 L 16 123/75 H 99 10/07/18 14:52 10/07/18 14:52 10/07/18 14:52 10/07/18 14:52 10/07/18 15:35 Oxygen Flow Rate (L/min) 2 Oxygen Delivery Method Nasal Cannula Weight: 172 lb 3.2 oz Body Mass Index (BMI) 24.7 General: Awake, Alert, Oriented x 3 HEENT: PERRL, EOMI, Sclera Non Icteric Neck: Supple, Good ROM, No Lymph Node Enlargement Lungs: Clear to auscultation Cardiovascular: Regular Rhythm, Normal S2, No Rubs, No Gallops Murmur Murmur: Grade 2/6, Holosystolic Vascular: No Carotid Bruits, Normal Femoral Pulses, Normal Radial Pulses, Normal Dorsalis Pedal Pulse, Normal Posterior Tibial Pulses Abdomen: Bowel Sounds Present, Soft, Non Tender, No HSM, No Organomegaly Extremities: No Cyanosis, No Clubbing, No edema Neurological: No Focal Motor or Sensory Deficit 10/07/18 11:25: WBC 6.9, RBC 4.85, Hgb 15.9, Hct 46.5, MCV 95.9 H, MCH 32.8 H, MCHC 34.2, Plt Count 196, MPV 10.3, Immature Gran % (Auto) 0.300, Neut % (Auto) 57.4, Lymph % (Auto) 24.4, [place] % (Auto) 12.4 H, Eos % (Auto) 5.2 H, Baso % (Auto) 0.3, Absolute Neuts (auto) 4.0, Nucleated RBC % 0 10/07/18 11:25: Sodium 137, Potassium 4.1, Chloride 106, Carbon Dioxide 27.0, Anion Gap 4 L, BUN 24 H, Creatinine 1.28, Est GFR (MDRD) Af Amer 70, Est GFR (MDRD) Non-Af 58 L, BUN/Creatinine Ratio 18.8, Glucose 88, Calcium 8.6, Troponin I < 0.015 10/07/18 11:25: Magnesium 2.0 10/07/18 15:04: Troponin I < 0.015 Rhythm: EKG: ECHO: Pending Stress Test: Pending Cardiac Cath: PCI: CT Surgery: Holter monitor: EPS: PPM: CXR: Chest CT Scan: Assessment/Plan 1. Coronary artery disease: The patient has unique coronary presentation and that he only gets nauseated and occasionally gets dizzy as he did in 1995. However he has recently suffered from a GI illness over the last 24 to 36 hours with diarrhea. While the patient was picking weeds today he developed some nausea which is similar to his anginal presentation in the past. His most recent catheterization was reviewed by myself this evening which was from December 2016. This demonstrated really no significant coronary disease and a dominant left circumflex, and widely patent graft to his LAD and diagonal. His right coronary artery was nondominant. Patient is symptom-free at this time. He has no dynamic EKG changes and his initial troponin is negative. I recommended that he undergo a rule out troponin. If this is negative x3, would recommend a repeat echocardiogram and a treadmill echocardiogram to determine if he has any evidence of ischemia particularly of the anterior lateral wall where his previous grafts reside. If his stress test is grossly abnormal for ischemia, he will require repeat catheterization and graft angiography. If his stress test is negative, I would treat the patient medically with baby aspirin and Plavix going forward given the age of his saphenous vein graft and after he has lost his other graft to the circumflex. However, if the patient's troponins are abnormal I would have a low threshold for repeat left heart catheterization and graft angiography. 2. Hyperlipidemia: recommend FLP. continue lipitor. 3. Thank you very much for the opportunity to contribute to the cardiac care of your patient. Consultation time took place between 330 and 4 PM. Code Visit Inpatient E&M: 09475 Init Hosp L2
[2018-10-07 18:40] LABS: Cholesterol 91 mg/dL (200); High Density Lipoprotein 35 mg/dL; Triglycerides 93 mg/dL; Very Low Density Lipoprotein 19 mg/dL (5-40)
[2018-10-07] MEDS: Metoprolol Tartrate 25 MG Tablet 12.5 MG PO (21:48)
[2018-10-07] MEDS: Ramipril 10 MG Capsule PO (21:48)
[2018-10-07] MEDS: Atorvastatin Calcium 10 MG Tablet PO (21:48)
[2018-10-07] MEDS: Latanoprost 0.005% 1 Bottle 1 DRP EACH EYE (21:49)
[2018-10-08] MEDS: 0.9% Normal Saline 1,000 ML 100 ML IV (01:58)
[2018-10-08 02:52] VITALS: BP 114/61; PULSE 51; RESP 16; TEMP 36.7; O2SAT 98
[2018-10-08 02:59] VITALS: PULSE 49
[2018-10-08 05:27] LABS: Absolute Neutrophil Count 3.7 X10^3/uL (2.0-7.7); Basophil# 0.04 X10^3/uL; Basophil% 0.6 % (0-1); Eosinophil# 0.43 X10^3/uL; Eosinophils% 5.9 % (0-5); Hematocrit 43.3 % (40-54); Hemoglobin 14.4 g/dL (13.0-16.5); Lymphocyte % 30.3 % (19-41); Mean Corp Hgb Conc 33.3 g/dL (32-36); Mean Corpuscular Hgb 32.1 pg (27.0-32.0); Mean Corpuscular Volume 96.4 fL (80-94); Mean Platelet Vol. 10.6 fl (6.2-12.0); Monocyte# 0.89 X10^3/uL; Monocyte% 12.3 % (0-10); NRBC Flagged by Analyzer 0 % (0-5); Neutrophil # 3.69 X10^3/uL (2.7-7.7); Neutrophil % 50.8 % (47-70); Platelet Count 177 K/mm3 (150-450); RBC Distribution Width CV 13.6 % (11.6-14.6); RBC Distribution Width SD 49.1 fl (35.1-43.9); Red Blood Count 4.49 M/mm3 (4.6-6.2); White Blood Count 7.3 K/mm3 (4.4-11.0)
[2018-10-08 05:32] VITALS: BP 127/62; PULSE 50; RESP 18; TEMP 36.7; O2SAT 98
[2018-10-08] MEDS: Aspirin 81 MG TAB.CHEW PO (05:36)
[2018-10-08] MEDS: Ramipril 10 MG Capsule PO (05:36)
[2018-10-08] MEDS: Clopidogrel Bisulfate 75 MG Tablet PO (05:36)
[2018-10-08] MEDS: Levothyroxine 100 MCG Tablet PO (05:36)
[2018-10-08 05:49] LABS: Anion Gap 5 (5-15); BUN 22 mg/dL (7-18); BUN/Creat Ratio 20.6 RATIO (10-20); Chloride 112 mmol/L (98-107); Cholesterol 85 mg/dL (200); Creatinine, Serum 1.07 mg/dL (0.70-1.30); EST Glomerular Filtration Rate 72 mL/min (>60); Est Glom Filt Rate - Afr Amer 87 mL/min (>60); Estimated Creatinine Clearance 61.59 ml/min; Glucose 83 mg/dL (74-106); High Density Lipoprotein 32 mg/dL; Potassium 4.7 mmol/L (3.5-5.1); Sodium Level 143 mmol/L (136-145); Triglycerides 68 mg/dL; Very Low Density Lipoprotein 14 mg/dL (5-40)
--- NOTE | 2018-10-08 05:55 | EKG12_ITS ---
Test Reason : AM EKG Blood Pressure : / mmHG Vent. Rate : 047 BPM Atrial Rate : 047 BPM P-R Int : 198 ms QRS Dur : 136 ms QT Int : 470 ms P-R-T Axes : 045 -51 -12 degrees QTc Int : 415 ms Sinus bradycardia Left axis deviation Non-specific intra-ventricular conduction block Abnormal ECG When compared with ECG of 07-OCT-2018 15:34, MANUAL COMPARISON REQUIRED, DATA IS UNCONFIRMED Confirmed by GOGO LADD, GAV[place] ([id number]), editor news RAPHAEL LEVINE ([id number]) on 10/13/2018 1:55:29 PM Referred By: JAMES Confirmed By:ADE BOWENS MD
[2018-10-08 07:16] VITALS: PULSE 47
--- NOTE | 2018-10-08 08:00 | STE_ITS ---
Reason For Study: Chest Pain Stress Results Protocol: Aftab Protocol Maximum Predicted HR: 145 bpm Target HR: 123 bpm % Maximum Predicted HR: 84 % DurationHeart Rate Stage (mm:ss) (bpm) BP Comment Baseline 57 124/88No Chest Pain A[facility]ab Protocol Stage I 3:00 77 130/78No Chest Pain [facility] Protocol Stage II 3:00 86 152/74No Chest Pain A[facility] Protocol Stage III 3:00 111 174/70No Chest Pain; Mild Dyspnea A[facility]ab Protocol Stage IV 0:30 122 / Mild Chest Tightness; Mild Dyspnea Recovery 77 120/72No Chest Pain; No Dyspnea Stress Duration: 9:30 mm:ss Maximum Stress HR: 122 bpm METS: 11 Baseline Echocardiogram Findings The estimated ejection fraction is 65 %. Stress Echo Wall motion Data Resting WM Intermediate WM Stress WM Resting Wall Motion Wall Motion Stress No regional wall motion No regional wall motion abnormalities noted. abnormalities noted. EKG Data The baseline ECG displays normal sinus rhythm. The patient exercised according to the regular Aftab protocol for a total duration of 9:30. The maximum heart rate attained was 122 beats per minute. This was 85% of maximum predicted heart rate. The patient exercised into stage 4 of the Aftab protocol. During stress, there were no ST or T wave changes noted to suggest ischemia. No clinical angina was noted. Interpretation Summary The estimated ejection fraction is 65 %. Normal, adequate, treadmill echocardiogram. Negative for ischemia by EKG and echocardiographic criteria. No anginal symptoms noted. Rare PAC noted. Appropriate blood pressure response to exercise. Above average exercise capacity for age. Patient's peak mitral regurgitation appeared to be about the same as baseline anteriorly directed mild to moderate mitral regurgitation. Test terminated due to dyspnea. No complications. Final LVEF is 75%. Ordering Physician: Vesna Garibay Referring Physician: Enoch Aguilar Performed By: Savi Shaffer RDCS
--- NOTE | 2018-10-08 08:04 | NURSING ---
pt off of floor for stress test
--- NOTE | 2018-10-08 08:33 | PCM.PN.CARD ---
Subjectve: Patient doing well this morning, awaiting stress testing. No 24-hour events. Objective: Vital Signs Temp Pulse Resp BP Pulse Ox 98.0 F 47 L 18 127/62 H 98 10/08/18 05:32 10/08/18 07:16 10/08/18 05:32 10/08/18 05:32 10/08/18 05:32 Oxygen Flow Rate (L/min) 2 Oxygen Delivery Method Room Air Weight: 172 lb 3.2 oz Body Mass Index (BMI) 24.7 Intake and Output for Last 24 Hours 10/06/18 10/07/18 10/08/18 23:59 23:59 23:59 Intake Total 1291 / 1291 510 / 510 Balance 1291 / 1291 510 / 510 General: Awake, Alert, Oriented x 3 HEENT: PERRL, EOMI, Sclera Non Icteric Neck: Supple, Good ROM, No Lymph Node Enlargement Lungs: Clear to auscultation Cardiovascular: Regular Rhythm, Normal S2, No Rubs, No Gallops Murmur Murmur: Grade 2/6, Holosystolic Vascular: No Carotid Bruits, Normal Femoral Pulses, Normal Radial Pulses, Normal Dorsalis Pedal Pulse, Normal Posterior Tibial Pulses Abdomen: Bowel Sounds Present, Soft, Non Tender, No HSM, No Organomegaly Extremities: No Cyanosis, No Clubbing, No edema Neurological: No Focal Motor or Sensory Deficit 10/07/18 11:25: WBC 6.9, RBC 4.85, Hgb 15.9, Hct 46.5, MCV 95.9 H, MCH 32.8 H, MCHC 34.2, Plt Count 196, MPV 10.3, Immature Gran % (Auto) 0.300, Neut % (Auto) 57.4, Lymph % (Auto) 24.4, [place] % (Auto) 12.4 H, Eos % (Auto) 5.2 H, Baso % (Auto) 0.3, Absolute Neuts (auto) 4.0, Nucleated RBC % 0 10/07/18 11:25: Sodium 137, Potassium 4.1, Chloride 106, Carbon Dioxide 27.0, Anion Gap 4 L, BUN 24 H, Creatinine 1.28, Est GFR (MDRD) Af Amer 70, Est GFR (MDRD) Non-Af 58 L, BUN/Creatinine Ratio 18.8, Glucose 88, Calcium 8.6, Troponin I < 0.015 10/07/18 11:25: Magnesium 2.0 10/07/18 15:04: Troponin I < 0.015 10/07/18 17:58: Troponin I < 0.015, Triglycerides 93, Cholesterol 91, LDL Cholesterol 37, VLDL Cholesterol 19, HDL Cholesterol 35 L 10/08/18 04:55: WBC 7.3, RBC 4.49 L, Hgb 14.4, Hct 43.3, MCV 96.4 H, MCH 32.1 H, MCHC 33.3, Plt Count 177, MPV 10.6, Immature Gran % (Auto) 0.100, Neut % (Auto) 50.8, Lymph % (Auto) 30.3, [place] % (Auto) 12.3 H, Eos % (Auto) 5.9 H, Baso % (Auto) 0.6, Absolute Neuts (auto) 3.7, Nucleated RBC % 0 10/08/18 04:55: Sodium 143, Potassium 4.7, Chloride 112 H, Carbon Dioxide 26.0, Anion Gap 5, BUN 22 H, Creatinine 1.07, Est GFR (MDRD) Af Amer 87, Est GFR (MDRD) Non-Af 72, BUN/Creatinine Ratio 20.6 H, Glucose 83, Calcium 8.0 L, Triglycerides 68, Cholesterol 85, LDL Cholesterol 39, VLDL Cholesterol 14, HDL Cholesterol 32 L Rhythm: EKG: ECHO: Stress Test: Pending Cardiac Cath: PCI: CT Surgery: Holter monitor: EPS: PPM: CXR: Chest CT Scan: Medical Necessity - Tobacco Use Smoking Status: Never smoker Tobacco Use: Non-smoker Assessment/Plan 1. Coronary artery disease: The patient has unique coronary presentation and that he only gets nauseated and occasionally gets dizzy as he did in 1995. However he has recently suffered from a GI illness over the last 24 to 36 hours with diarrhea. While the patient was picking weeds on the day of admission he developed some nausea which is similar to his anginal presentation in the past. His most recent catheterization was reviewed by myself this evening which was from December 2016. This demonstrated really no significant coronary disease and a dominant left circumflex, and widely patent graft to his LAD and diagonal. His right coronary artery was nondominant. Patient is symptom-free at this time. He has no dynamic EKG changes and his initial troponin is negative x3. I recommended that he undergo a rule out troponin. If this is negative x3, would recommend a repeat echocardiogram and a treadmill echocardiogram to determine if he has any evidence of ischemia particularly of the anterior lateral wall where his previous grafts reside. If his stress test is grossly abnormal for ischemia, he will require repeat catheterization and graft angiography. If his stress test is negative, I would treat the patient medically with baby aspirin and Plavix going forward given the age of his saphenous vein graft and after he has lost his other graft to the circumflex. Would also recommend we obtain images of his peak mitral regurgitation during his stress test to determine if he requires mitral valve replacement. 2. Hyperlipidemia: LDL and HDL cholesterol are at goal. continue lipitor. 3. Thank you very much for the opportunity to contribute to the cardiac care of your patient. We await the results of the stress echocardiogram. Code Visit Inpatient E&M: 91176 Subs Hosp L2
[2018-10-08 10:37] VITALS: BP 113/66; PULSE 52; RESP 16; TEMP 36.8; O2SAT 92
[2018-10-08 10:48] VITALS: PULSE 54
[2018-10-08] MEDS: Metoprolol Tartrate 25 MG Tablet 12.5 MG PO (10:48)
[2018-10-08] MEDS: hydroCHLOROthiazide 12.5mg 12.5 MG PO (10:49)
--- NOTE | 2018-10-08 10:57 | PCM.DC ---
- Discharge Diagnoses Current Active Problems: Current Active and Chronic Problems (Last Reviewed 06/02/18 @ 09:59 by Dax Rodriguez MD) CAD You will use the following diet at home:: Cardiac Discharge Activity: Return to Normal Activity Call your doctor if you observe: Shortness of breath, Dizziness, Fainting spells, Chest pain Allergies/Adverse Reactions: Allergies bee venom protein (honey bee) Allergy (Unknown, Verified 10/07/18 15:18) hives/anaphylaxis Medications to take at Discharge Aspirin [Aspirin, Baby] 81 mg PO DAILY 01/14/14 Cholecalciferol (VIT D3) [Vitamin D3] 1,000 unit PO DAILY 01/14/14 Multivitamins,Therapeutic [Multivitamin] 1 tab PO DAILY 01/14/14 Latanoprost 0.005% [Xalatan Opthalmic] 1 drp EACH EYE QHS 01/03/17 [place]-3 Fatty Acids/Fish Oil [[place] 3 Fish Oil Softgel] 1 ea PO DAILY 01/03/17 metoprolol tartrate 25 mg tablet 12.5 mg PO BID #90 tab 08/11/17 ramipril 10 mg capsule 10 mg PO BID #180 cap 08/11/17 hydrochlorothiazide 25 mg tablet 12.5 mg PO DAILY #45 tab 04/13/18 levothyroxine 100 mcg tablet 100 mcg PO DAILY #90 tab 06/10/18 Cinnamon Bark [Cinnamon] 500 mg PO DAILY 10/07/18 Magnesium Oxide [Magnesium] 500 mg PO DAILY 10/07/18 Rosuvastatin Calcium 5 mg PO QHS 10/07/18 Ubidecarenone/Vit E Acet [Co Q-10 100 mg Softgel] 1 cap PO DAILY 10/07/18 Vitamin B Complex [B Complex # 1] 1 tab PO DAILY 10/07/18 Clopidogrel Bisulfate [Plavix] 75 mg PO DAILY #30 tab 10/08/18 The following prescriptions were given: Clopidogrel Bisulfate [Plavix] 75 mg PO DAILY #30 tab Transmission Status: Pending to [facility]/pharmacy #[id number] Primary Care Physician: Shira Borjas DO [Primary Care Provider] - Please follow up with your Primary Care Physician in: 1 Week Test Results: Test results from this visit will be discussed in further detail at your follow-up appointment, if applicable. 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
--- NOTE | 2018-10-08 10:57 | CASEMGMT ---
BRIANNA/POONAM in echart, SW printed and placed in paper chart. ESTHER Hicks
--- NOTE | 2018-10-08 11:02 | DS.PCM_ITS ---
<Elis Peters - Last Filed: 10/08/18 11:26> Discharge Date and Diagnosis Date of Admission: 10/07/18 Date of Discharge: 10/08/18 - Primary Discharge Diagnosis Active and Suspected Problems (Last Reviewed 06/02/18 @ 09:59 by Dax Rodriguez MD) 1. Atypical chest pain, ACS ruled out 2. CAD status post CABG x3 3. Hypertension 4. Hyperlipidemia 5. Hypothyroidism 6. History of prostate cancer 7. Valvular heart disease - Secondary Discharge Diagnosis Chronic Problems (Last Reviewed 06/02/18 @ 09:59 by Dax Rodriguez MD) Hypothyroidism (Chronic) History of left heart catheterization (Chronic) 1994 prior to CABG; 06/21/2003 @ [facility] per Dr. Beaulieu; 01/06/[address] Rodriguez @ [facility] Atherosclerosis of coronary artery bypass graft of [place] heart without angina pectoris (Chronic) Known occluded SVG to CX per [facility] 01/06/[address] Rodriguez @ [facility] Hyperlipidemia (Chronic) Atherosclerotic heart disease of [place] coronary artery without angina pectoris (Chronic) CABG X 3 12/15/1994:SWANSON to LAD, SVG to Dx and SVG to Cx Nonrheumatic mitral valve stenosis with insufficiency (Chronic) Aortocoronary bypass status (Chronic) CABG with saphenous vein grafts Diag 1 CFX, SWANSON graft to LAD, 1994; USP use of drug (Chronic) Old myocardial infarction (Chronic) Nonrheumatic mitral (valve) prolapse (Chronic) Prostate cancer (Chronic) Hospital Course and Treatment Imaging Results: Diagnostic Data Chest X-Ray 10/07/18 11:40 IMPRESSION: No active disease. Electronically Signed: Jaden Solis MD at 12:01 EDT Tel , Service support , Dr. Aguilar- Cardiology Operations: None Procedures: 2-D Echocardiogram, Stress test Summary of Care Provided: The patient is a 73 year old M admitted 10/07/2018 due to chest pain, nausea and near syncope. 1. Atypical chest pain, ACS ruled out-troponin negative. EKG without ST-T changes. Cardiology consulted during admission given history of CAD with prior CABG. Patient underwent stress echo which was negative for ischemia. Echocardiogram demonstrated an EF of 65%, stage II diastolic dysfunction, mild to moderate mitral valve insufficiency, mild tricuspid valve insufficiency, RVSP estimated to be 37 mmHg. Patient was added on Plavix in addition to aspirin at discharge. Continue home beta-rigo, PORFIRIO inhibitor, statin regimen. Patient follows with Dr. Rodriguez. Continue follow-up with cardiology as scheduled. 2. CAD status post CABG x3-continue medical management with aspirin, statin, Plavix, beta-rigo as noted above. Continue outpatient follow-up with cardiology. 3. Hypertension-stable, continue home hydrochlorothiazide, metoprolol, ramipril regimen. 4. Hyperlipidemia-continue statin. 5. Hypothyroidism-continue home levothyroxine regimen. 6. History of prostate cancer-status post radical prostatectomy. 7. Valvular heart disease-stable per echo as noted above. Patient noted to have mild to moderate mitral valve insufficiency, mild tricuspid valve insufficiency. Patient seen and examined prior to discharge. Physical assessment as noted below. Patient is stable for discharge with follow up recommendations as noted above. This patient was seen by RAMBO Recinos under the supervision of Dr. Azeem chisholm. - Physical Exam General: Alert, Oriented x3, Cooperative HEENT: Atraumatic, PERRLA, EOMI, Normocephalic Neck: Supple, No JVD, Negative Carotid Bruits Lungs: Clear to auscultation, Normal air movement Cardiovascular: Regular Rhythm, Normal S1, Normal S2, Bradycardic, Murmur Abdomen: Bowel Sounds Present, Soft, Non Tender, Non-Distended Extremities: No clubbing, No cyanosis, No edema, Capillary Refill Less than 3 Seconds Skin: No rashes, No breakdown Musculoskeletal: No Tenderness to Palpation of Joints or Extremities Neurological: Cranial nerves II-XII grossly intact, Neuro grossly intact Psych/Mental Status: Normal Affect, Appropriate Vital Signs Temp Pulse Resp BP Pulse Ox 98.3 F 54 L 16 113/66 92 10/08/18 10:37 10/08/18 10:48 10/08/18 10:37 10/08/18 10:37 10/08/18 10:37 Oxygen Flow Rate (L/min) 2 Oxygen Delivery Method Room Air Weight: 172 lb 3.2 oz Body Mass Index (BMI) 24.7 Intake and Output for Last 24 Hours 10/06/18 10/07/18 10/08/18 23:59 23:59 23:59 Intake Total 1291 / 1291 510 / 510 Balance 1291 / 1291 510 / 510 Laboratory Tests Past 24 Hrs 10/07/18 10/07/18 10/07/18 11:25 11:25 11:25 WBC 6.9 RBC 4.85 Hgb 15.9 Hct 46.5 MCV 95.9 H MCH 32.8 H MCHC 34.2 RDW Std Deviation 48.1 H RDW Coeff of Darian 13.5 Plt Count 196 MPV 10.3 Immature Gran % (Auto) 0.300 Neut % (Auto) 57.4 Lymph % (Auto) 24.4 Emanuel % (Auto) 12.4 H Eos % (Auto) 5.2 H Baso % (Auto) 0.3 Absolute Neuts (auto) 4.0 Absolute Lymphs (auto) 1.69 Nucleated RBC % 0 Sodium 137 Potassium 4.1 Chloride 106 Carbon Dioxide 27.0 Anion Gap 4 L BUN 24 H Creatinine 1.28 Estim Creat Clear Calc 47.99 Est GFR (MDRD) Af Amer 70 Est GFR (MDRD) Non-Af 58 L BUN/Creatinine Ratio 18.8 Glucose 88 Calcium 8.6 Magnesium 2.0 Troponin I < 0.015 Triglycerides Cholesterol LDL Cholesterol VLDL Cholesterol HDL Cholesterol TSH 2.48 10/07/18 10/07/18 10/08/18 15:04 17:58 04:55 WBC 7.3 RBC 4.49 L Hgb 14.4 Hct 43.3 MCV 96.4 H MCH 32.1 H MCHC 33.3 RDW Std Deviation 49.1 H RDW Coeff of Darian 13.6 Plt Count 177 MPV 10.6 Immature Gran % (Auto) 0.100 Neut % (Auto) 50.8 Lymph % (Auto) 30.3 Emanuel % (Auto) 12.3 H Eos % (Auto) 5.9 H Baso % (Auto) 0.6 Absolute Neuts (auto) 3.7 Absolute Lymphs (auto) 2.20 Nucleated RBC % 0 Sodium Potassium Chloride Carbon Dioxide Anion Gap BUN Creatinine Estim Creat Clear Calc Est GFR (MDRD) Af Amer Est GFR (MDRD) Non-Af BUN/Creatinine Ratio Glucose Calcium Magnesium Troponin I < 0.015 < 0.015 Triglycerides 93 Cholesterol 91 LDL Cholesterol 37 VLDL Cholesterol 19 HDL Cholesterol 35 L TSH 10/08/18 04:55 WBC RBC Hgb Hct MCV MCH MCHC RDW Std Deviation RDW Coeff of Darian Plt Count MPV Immature Gran % (Auto) Neut % (Auto) Lymph % (Auto) Emanuel % (Auto) Eos % (Auto) Baso % (Auto) Absolute Neuts (auto) Absolute Lymphs (auto) Nucleated RBC % Sodium 143 Potassium 4.7 Chloride 112 H Carbon Dioxide 26.0 Anion Gap 5 BUN 22 H Creatinine 1.07 Estim Creat Clear Calc 61.59 Est GFR (MDRD) Af Amer 87 Est GFR (MDRD) Non-Af 72 BUN/Creatinine Ratio 20.6 H Glucose 83 Calcium 8.0 L Magnesium Troponin I Triglycerides 68 Cholesterol 85 LDL Cholesterol 39 VLDL Cholesterol 14 HDL Cholesterol 32 L TSH Discharge Diet: Low fat/ Low Cholesterol Discharge Activity: Return to Normal Activity Call your doctor if you observe: Shortness of breath, Dizziness, Fainting spells, Chest pain Home Medications: Medications to take at Discharge Aspirin [Aspirin, Baby] 81 mg PO DAILY 01/14/14 Cholecalciferol (VIT D3) [Vitamin D3] 1,000 unit PO DAILY 01/14/14 Multivitamins,Therapeutic [Multivitamin] 1 tab PO DAILY 01/14/14 Latanoprost 0.005% [Xalatan Opthalmic] 1 drp EACH EYE QHS 01/03/17 Timberlake-3 Fatty Acids/Fish Oil [Timberlake 3 Fish Oil Softgel] 1 ea PO DAILY 01/03/17 metoprolol tartrate 25 mg tablet 12.5 mg PO BID #90 tab 08/11/17 ramipril 10 mg capsule 10 mg PO BID #180 cap 08/11/17 hydrochlorothiazide 25 mg tablet 12.5 mg PO DAILY #45 tab 04/13/18 levothyroxine 100 mcg tablet 100 mcg PO DAILY #90 tab 06/10/18 Cinnamon Bark [Cinnamon] 500 mg PO DAILY 10/07/18 Magnesium Oxide [Magnesium] 500 mg PO DAILY 10/07/18 Rosuvastatin Calcium 5 mg PO QHS 10/07/18 Ubidecarenone/Vit E Acet [Co Q-10 100 mg Softgel] 1 cap PO DAILY 10/07/18 Vitamin B Complex [B Complex # 1] 1 tab PO DAILY 10/07/18 Clopidogrel Bisulfate [Plavix] 75 mg PO DAILY #60 tab 10/08/18 Following Prescrptions Were Given to Patient: Clopidogrel Bisulfate [Plavix] 75 mg PO DAILY #60 tab Transmission Status: Received by [facility] Primary Care Physician: Shira Borjas DO [Primary Care Provider] - Please follow up with your Primary Care Physician in: 1 Week Please Follow Up With: Dax Rodriguez MD When: 2-4 Weeks, May see DATA ENTRY SUPERVISOR/PA Disposition: Home Minutes spent on discharge:: 35 Patient Condition:: Stable Medical Necessity - Tobacco Use Smoking Status: Never smoker Tobacco Use: Non-smoker Meaningful Use Info Meaningful Use Diagnoses (Choose all that apply): None applicable <CollettequeJose - Last Filed: 10/08/18 11:46> Discharge Date and Diagnosis - Secondary Discharge Diagnosis Chronic Problems (Last Reviewed 06/02/18 @ 09:59 by Dax Rodriguez MD) Hypothyroidism (Chronic) History of left heart catheterization (Chronic) 1994 prior to CABG; 06/21/2003 @ [facility] per Dr. Beaulieu; 01/06/[address] Rodriguez @ [facility] Atherosclerosis of coronary artery bypass graft of [place] heart without angina pectoris (Chronic) Known occluded SVG to CX per [facility] 01/06/[address] 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 I have independently interviewed and examined the patient and reviewed pertinent historical, laboratory, and other data. Please refer to RAMBO Recinos note for details of this patient's presentation, findings, and recommendations. I have reviewed RAMBO Recinos note and concur with documented findings. In brief, patient is a 33-year-old gentleman with past medical history significant CAD with previous CABG who presented with atypical symptoms including nausea. Patient was placed in a monitored bed [place] was ruled out with serial cardiac enzymes consultation was placed to cardiology patient was seen by Dr. Aguilar who did perform a stress echo which was negative for stress induced ischemia. Patient was discharged home Plavix was added to his medication regimen Hospital course: As document above by Elis Peters. - Physical Exam Vital Signs Temp Pulse Resp BP Pulse Ox 98.3 F 54 L 16 113/66 92 10/08/18 10:37 10/08/18 10:48 10/08/18 10:37 10/08/18 10:37 10/08/18 10:37 Oxygen Flow Rate (L/min) 2 Oxygen Delivery Method Room Air Weight: 78.109 kg Body Mass Index (BMI) 24.7 Intake and Output for Last 24 Hours 10/06/18 10/07/18 10/08/18 23:59 23:59 23:59 Intake Total 1291 / 1291 510 / 510 Balance 1291 / 1291 510 / 510 Laboratory Tests Past 24 Hrs 10/07/18 10/07/18 10/07/18 11:25 11:25 15:04 WBC RBC Hgb Hct MCV MCH MCHC RDW Std Deviation RDW Coeff of Darian Plt Count MPV Immature Gran % (Auto) Neut % (Auto) Lymph % (Auto) Emanuel % (Auto) Eos % (Auto) Baso % (Auto) Absolute Neuts (auto) Absolute Lymphs (auto) Nucleated RBC % Sodium 137 Potassium 4.1 Chloride 106 Carbon Dioxide 27.0 Anion Gap 4 L BUN 24 H Creatinine 1.28 Estim Creat Clear Calc 47.99 Est GFR (MDRD) Af Amer 70 Est GFR (MDRD) Non-Af 58 L BUN/Creatinine Ratio 18.8 Glucose 88 Calcium 8.6 Magnesium 2.0 Troponin I < 0.015 < 0.015 Triglycerides Cholesterol LDL Cholesterol VLDL Cholesterol HDL Cholesterol TSH 2.48 10/07/18 10/08/18 10/08/18 17:58 04:55 04:55 WBC 7.3 RBC 4.49 L Hgb 14.4 Hct 43.3 MCV 96.4 H MCH 32.1 H MCHC 33.3 RDW Std Deviation 49.1 H RDW Coeff of Darian 13.6 Plt Count 177 MPV 10.6 Immature Gran % (Auto) 0.100 Neut % (Auto) 50.8 Lymph % (Auto) 30.3 Emanuel % (Auto) 12.3 H Eos % (Auto) 5.9 H Baso % (Auto) 0.6 Absolute Neuts (auto) 3.7 Absolute Lymphs (auto) 2.20 Nucleated RBC % 0 Sodium 143 Potassium 4.7 Chloride 112 H Carbon Dioxide 26.0 Anion Gap 5 BUN 22 H Creatinine 1.07 Estim Creat Clear Calc 61.59 Est GFR (MDRD) Af Amer 87 Est GFR (MDRD) Non-Af 72 BUN/Creatinine Ratio 20.6 H Glucose 83 Calcium 8.0 L Magnesium Troponin I < 0.015 Triglycerides 93 68 Cholesterol 91 85 LDL Cholesterol 37 39 VLDL Cholesterol 19 14 HDL Cholesterol 35 L 32 L TSH Code Visit OBSV E&M: 25334 Observation care discharge
== END 2018-10-08 10:58 | disposition home or self-care (01) ==
LOC: ED 11:57 → PCU 14:03
PROVIDERS: Admitting Provider Family Medicine; Emergency Provider Emergency Medicine; Family Provider Internal Medicine; PCP Internal Medicine; Visit Provider Internal Medicine
DX: R07.89 Other chest pain (principal); I25.10 Atherosclerotic heart disease of native coronary artery without angina pectoris; E03.9 Hypothyroidism, unspecified; E78.5 Hyperlipidemia, unspecified; C61 Malignant neoplasm of prostate; I34.2 Nonrheumatic mitral (valve) stenosis; I25.2 Old myocardial infarction; Z79.899 Other long term (current) drug therapy; Z79.82 Long term (current) use of aspirin; Z95.1 Presence of aortocoronary bypass graft
CPT/HCPCS: 36415; 71045; 80048; 80061; 83735; 84443; 84484; 85025; 93005; 93017; 93306; 93350; 96360; 96361; 99218; 99285; J7030; G0378

== ENCOUNTER → 2018-12-15 08:29 | Outpatient (CLI) | payer MEDICARE, OTHER, SELFPAY ==
[2018-10-23 13:40] VITALS: BMI 25.2
[2018-12-15 09:34] LABS: AST(SGOT) 25 U/L (15-37); Alanine Aminotransfer ALT/SGPT 33 U/L (16-61); Albumin, Serum 3.9 g/dL (3.2-5.0); Alkaline Phosphatase 41 U/L (45-117); Bilirubin, Direct 0.28 mg/dL (0.00-0.30); Cholesterol 132 mg/dL (200); Globulin 3.4 g/dL (2.2-4.2); High Density Lipoprotein 38 mg/dL; Protein, Total 7.3 g/dL (6.4-8.2); Triglycerides 139 mg/dL; Very Low Density Lipoprotein 28 mg/dL (5-40)
== END ==
PROVIDERS: Family Provider Internal Medicine; PCP Internal Medicine; Referring Provider Nurse Practitioner Family; Visit Provider Nurse Practitioner Family
DX: E78.5 Hyperlipidemia, unspecified (principal)
CPT/HCPCS: 36415; 80061; 80076

== ENCOUNTER → 2019-01-19 11:06 | Outpatient (CLI) | payer MEDICARE, OTHER, SELFPAY ==
[2018-12-17 11:31] VITALS: BMI 25.5
[2019-01-19 13:24] LABS: PSA,Total- Diagnostic < 0.01 ng/mL (0.0-4.0)
== END ==
PROVIDERS: Family Provider Internal Medicine; PCP Internal Medicine; Referring Provider Urology; Visit Provider Urology
DX: C61 Malignant neoplasm of prostate (principal)
CPT/HCPCS: 36415; 84153

== ENCOUNTER 2019-01-19 11:45 | Emergency (ER) | payer MEDICARE, OTHER, SELFPAY ==
[2018-12-17 11:31] VITALS: BMI 25.5
[2019-01-19 11:47] VITALS: BP 139/76; PULSE 57; RESP 16; TEMP 36.7; BMI 26.5
[2019-01-19 12:10] LABS: Bedside Glucose 94 mg/dL (70-110)
[2019-01-19 12:15] VITALS: BP 130/77; PULSE 50; RESP 16; RESP 17; O2SAT 94
--- NOTE | 2019-01-19 12:47 | CT_ITS ---
STUDY: CT BRAIN WITHOUT CONTRAST REASON FOR EXAM: Male, 73 years old. RADIATION DOSAGE (If Supplied By Facility): CTDIvol = ( 44.99 ) mGy, DLP = ( 779.24 ) mGycm TECHNIQUE: Transaxial CT imaging of the brain was performed without administration of intravenous contrast material. Individualized dose optimization techniques were used for this CT. COMPARISON: No relevant priors. FINDINGS: There is slight prominence of the ventricular system and cerebral sulci which are age-related. No evidence of increased or decreased brain density. A small arachnoid cyst seen in the left middle fossa. No epidural, subdural or intracerebral hematoma. The orbits are unremarkable. The sinuses and mastoid air cells are clear. The cranial vault and skull base are intact. CT/Brain/Head without Contrast IMPRESSION: Small arachnoid cyst anterior aspect of the left temporal lobe. Mild age-related changes. Electronically Signed: Duke Tinoco, at 13:35 EST Tel , Service support ,
--- NOTE | 2019-01-19 12:47 | EKG12_ITS ---
Test Reason : CONFUSION Blood Pressure : / mmHG Vent. Rate : 046 BPM Atrial Rate : 046 BPM P-R Int : 172 ms QRS Dur : 124 ms QT Int : 492 ms P-R-T Axes : 037 -45 -18 degrees QTc Int : 430 ms Sinus bradycardia Left anterior fascicular block Left ventricular hypertrophy with QRS widening Abnormal ECG Confirmed by ALEX DAWN ([id number]), non linear editor MARGOT ARANDA ([id number]) on 01/22/2019 11:26:11 AM Referred By: DEVONTE Confirmed By:ALEX DAWN
[2019-01-19 13:28] LABS: Absolute Lymphocyte Count 1.81 X10^3/uL (0.83-4.51); Absolute Neutrophil Count 5.4 X10^3/uL (2.0-7.7); Basophil# 0.04 X10^3/uL; Basophil% 0.5 % (0-1); Eosinophil# 0.36 X10^3/uL; Eosinophils% 4.2 % (0-5); Hematocrit 44.9 % (40-54); Hemoglobin 14.9 g/dL (13.0-16.5); Lymphocyte # 1.81 X10^3/ul (4.0); Lymphocyte % 21.3 % (19-41); Mean Corp Hgb Conc 33.2 g/dL (32-36); Mean Corpuscular Hgb 31.8 pg (27.0-32.0); Mean Corpuscular Volume 95.7 fL (80-94); Mean Platelet Vol. 10.6 fl (6.2-12.0); Monocyte# 0.87 X10^3/uL; Monocyte% 10.2 % (0-10); NRBC Flagged by Analyzer 0 % (0-5); Neutrophil # 5.41 X10^3/uL (2.7-7.7); Neutrophil % 63.6 % (47-70); Platelet Count 200 K/mm3 (150-450); RBC Distribution Width CV 13.6 % (11.6-14.6); RBC Distribution Width SD 47.8 fl (35.1-43.9); Red Blood Count 4.69 M/mm3 (4.6-6.2); White Blood Count 8.5 K/mm3 (4.4-11.0)
[2019-01-19 13:29] VITALS: PULSE 48; RESP 16; O2SAT 94
[2019-01-19 13:42] LABS: Anion Gap 6 (5-15); BUN 23 mg/dL (7-18); BUN/Creat Ratio 20.7 RATIO (10-20); Calcium,Total 9.3 mg/dL (8.5-10.1); Chloride 107 mmol/L (98-107); Creatinine, Serum 1.11 mg/dL (0.70-1.30); EST Glomerular Filtration Rate 69 mL/min (>60); Est Glom Filt Rate - Afr Amer 83 mL/min (>60); Estimated Creatinine Clearance 59.37 ml/min; Glucose 91 mg/dL (74-106); Potassium 4.3 mmol/L (3.5-5.1); Sodium Level 139 mmol/L (136-145)
--- NOTE | 2019-01-19 14:08 | ED.DCSUM_ITS ---
- ER Visit Summary Date of Service: 01/19/19 Chief Complaint: TIA History of Present Illness: The patient is a 73 M who presents with possible TIA that occurred last night. states the patient was confused and argumentative last night that lasted approximately 45 minutes to 1 hour. states patient was having difficulty using his phone. states the patient became upset and argumentative with her when she tried to correct him. states patient refused to come to the emergency department for evaluation last night. called Dr. Rodriguez's office and patient was referred to the emergency department. Physical Examination: Vital signs are stable. Patient is afebrile. Patient is no acute distress. Oral mucosa is pink and moist. Neck is supple. Trachea is midline. There is no JVD. Heart was regular rate and rhythm. Lungs are clear and equal bilaterally. Abdomen is soft. Bowel sounds are normal. There is no tenderness. Cranial nerves II through XII are intact. There are no focal motor or sensory deficit is noted. Patient ambulated without difficulty. Skin is warm and dry. Extremities are intact. There is no calf tenderness or edema. Test Results: EKG showed sinus bradycardia with a rate of 46. There are no acute ST or T wave changes. CT scan of the brain was obtained. There is an arachnoid cyst but no acute intracranial abnormality. This was interpreted by the radiologist and reviewed by myself. CBC basic metabolic profile and troponin were obtained and were all within normal limits. Emergency Department Course and Treatment: Patient had no further symptoms here in the emergency department. Case was discussed with Dr. Rodriguez. Patient will follow-up in 5 to 7 days. Patient understood and was agreeable with the plan. All questions were answered. Disposition: Discharge home Impression: 1. TIA This note was generated with Aniboomation software. It may contain incorrect words, spelling, and punctuation that were not noted in review of the chart prior to signing ED Disposition - Plan for ED Patient: Disposition: Home or Assisted Living Diagnosis: TIA (transient ischemic attack) Instructions: Transient Ischemic Attack (TIA) Referrals: Shira Borjas DO [Primary Care Provider] - 5-7 Days
[2019-01-19 14:29] VITALS: BP 132/72; BP 134/72; PULSE 47; RESP 18; O2SAT 97
== END 2019-01-19 14:31 | disposition home or self-care (01) ==
PROVIDERS: Emergency Provider Emergency Medicine; Family Provider Internal Medicine; PCP Internal Medicine
DX: G45.9 Transient cerebral ischemic attack, unspecified (principal); I10 Essential (primary) hypertension; E03.9 Hypothyroidism, unspecified; C61 Malignant neoplasm of prostate; Z79.82 Long term (current) use of aspirin; Z79.899 Other long term (current) drug therapy
CPT/HCPCS: 36415; 70450; 80048; 82962; 84153; 84484; 85025; 93005; 94760; 99283; A4216

== ENCOUNTER → 2019-02-02 08:39 | Outpatient (CLI) | payer MEDICARE, OTHER, SELFPAY ==
[2019-01-19 11:47] VITALS: BMI 26.5
--- NOTE | 2019-02-02 08:42 | CDU_ITS ---
Reason For Study: TIA, Tansient confusion Rt. Velocities/BP Lt. Velocities/BP Prox CCA 116/14.7 cm/sec. Prox CCA 109.7/17.6 cm/sec. Mid CCA 103.4/14.7 cm/sec. Mid CCA 99.8/20.0 cm/sec. Dist CCA 103.4/14.7 cm/sec. Dist CCA 97.4/20.0 cm/sec. Prox ICA 81.2/14.7 cm/sec. Prox ICA 74.1/17.6 cm/sec. Mid ICA 99.5/23.9 cm/sec. Mid ICA 108.3/26.1 cm/sec. Dist ICA 94.3/26.5 cm/sec. Dist ICA 112.1/26.2 cm/sec. Rt. ICA/CCA = 1.0. Lt. ICA/CCA = 1.1. Prox ECA 109.9/5.6 cm/sec. Prox ECA 94.9/5.3 cm/sec. Rt. Vert. 29.6 cm/sec. Lt. Vert. 98.6/18.8 cm/sec. Right Extracranial There is homogeneous, smooth atherosclerotic plaque noted in the right common carotid artery. There is heterogeneous, irregular atherosclerotic plaque noted in the right internal carotid artery. There is homogeneous, smooth atherosclerotic plaque noted in the right external carotid artery. Antegrade flow is noted in the right vertebral artery. Left Extracranial There is intimal thickening but no significant atherosclerotic plaque noted in the left common carotid artery. There is heterogeneous, irregular atherosclerotic plaque noted in the left internal carotid artery. There is intimal thickening but no significant atherosclerotic plaque noted in the left external carotid artery. Antegrade flow is noted in the left vertebral artery. Procedure Carotid Duplex [id number]. The exam was diagnostic. Exam performed in department. Interpretation Summary Mild (<50%) stenosis right extracranial internal carotid. Mild (<50%) stenosis left extracranial internal carotid. Flow within the vertebral arteries is antegrade bilaterally. Ordering Physician: Shira Borjas Performed By: Jorge Luis Kelly RVT
--- NOTE | 2019-02-02 09:21 | MRI_ITS ---
STUDY: MRI BRAIN WITHOUT CONTRAST REASON FOR EXAM: Male, 73 years old. The patient presents with a history of TIAs. TECHNIQUE: Standardized multiplanar fat and water weighted pulse sequences were obtained. COMPARISON: None. FINDINGS: There is mild age-related cerebral atrophy with mild diffuse sulcal prominence with minimal ventricular enlargement. There is a small arachnoid cyst within the left anterior middle cranial fossa, anterior to the temporal tip measuring 24 x 12 x 26 mm (AP x mediolateral x craniocaudal). There are a limited number of small white matter hyperintensities, distributed throughout the deep white matter tracts of the cerebral hemispheres, consistent with mild chronic white matter ischemic changes. There is no evidence for recent intracranial ischemia or other cause of cytotoxic edema on diffusion weighted imaging (DWI). Normal T2* images of the brain without demonstrated susceptibility artifact. There is no demonstrated hemosiderin stain. Normal bilateral basal ganglia. Normal thalami. There is no extra-axial fluid accumulation. Normal flow voids within the major intracranial circulation suggesting patency by spin echo criteria. Normal sella turcica, pituitary gland, infundibular stalk, optic chiasm and hypothalamus. Normal tectal plate and pineal gland. Normal midbrain, mir and medulla. Normal cerebellum. Normal basal cisterns. Normal bilateral internal auditory canals. No demonstrated orbital abnormality, within the constraints of a routine brain study. There is minimal mucosal inflammatory disease of the paranasal sinuses consistent with mild chronic sinusitis. Normal calvarium and skull base. Normal visualized soft tissue structures. Normal visualized upper cervical spine. MRI/Brain without Contrast IMPRESSION: 1. Mild age-related cerebral atrophy with diffuse sulcal prominence and with minimal chronic white matter ischemic changes. 2. Normal diffusion weighted images without evidence of a recent intracranial ischemic process. 3. Small arachnoid cyst within the left anterior middle cranial fossa and to the temporal tip. 4. Minimal chronic sinusitis. Electronically Signed: Bradofrd Lomas DO at 10:55 EST Tel , Service support ,
== END ==
PROVIDERS: Family Provider Internal Medicine; PCP Internal Medicine; Referring Provider Internal Medicine; Visit Provider Internal Medicine
DX: Z86.73 Personal history of transient ischemic attack (TIA), and cerebral infarction without residual deficits (principal)
CPT/HCPCS: 70551; 93880

== ENCOUNTER → 2019-02-25 10:53 | Outpatient (CLI) | payer MEDICARE, OTHER, SELFPAY ==
[2019-02-25 11:27] LABS: Erythrocyte Sedimentation Rate 2 mm/hr (0-20)
[2019-02-25 11:51] LABS: Vitamin B12 439 pg/mL (211-911)
[2019-02-25 12:28] LABS: Thyroid Stim Hormone (TSH) 2.17 uIU/mL (0.358-3.74)
[2019-02-26 13:06] LABS: ANTINUCLEAR ANTIBODIES DIRECT Negative (Negative)
== END ==
PROVIDERS: Family Provider Internal Medicine; PCP Internal Medicine; Referring Provider Psychiatry & Neurology Neurology; Visit Provider Psychiatry & Neurology Neurology
DX: R41.0 Disorientation, unspecified (principal); R41.3 Other amnesia
CPT/HCPCS: 36415; 82607; 82746; 84443; 85652; 86038

== ENCOUNTER → 2019-07-27 10:26 | Outpatient (CLI) | payer MEDICARE, OTHER, SELFPAY ==
[2019-06-17 11:02] VITALS: BMI 26.5
[2019-07-27 11:29] LABS: PSA,Total- Diagnostic < 0.01 ng/mL (0.0-4.0)
== END ==
PROVIDERS: PCP Internal Medicine; Referring Provider Urology; Visit Provider Urology
DX: C61 Malignant neoplasm of prostate (principal)
CPT/HCPCS: 36415; 84153

== ENCOUNTER → 2019-08-02 09:08 | Outpatient (CLI) | payer MEDICARE, OTHER, SELFPAY ==
[2019-06-17 11:02] VITALS: BMI 26.5
[2019-08-02 10:44] LABS: AST(SGOT) 33 U/L (15-37); Alanine Aminotransfer ALT/SGPT 40 U/L (16-61); Albumin, Serum 3.6 g/dL (3.2-5.0); Alkaline Phosphatase 41 U/L (45-117); Bilirubin, Direct 0.32 mg/dL (0.00-0.30); Cholesterol 145 mg/dL (200); Globulin 3.7 g/dL (2.2-4.2); High Density Lipoprotein 39 mg/dL; Protein, Total 7.3 g/dL (6.4-8.2); Triglycerides 103 mg/dL; Very Low Density Lipoprotein 21 mg/dL (5-40)
== END ==
PROVIDERS: PCP Internal Medicine; Referring Provider Nurse Practitioner Family; Visit Provider Nurse Practitioner Family
DX: E78.00 Pure hypercholesterolemia, unspecified (principal); E78.5 Hyperlipidemia, unspecified
CPT/HCPCS: 36415; 80061; 80076

== ENCOUNTER → 2019-09-13 11:25 | Outpatient (CLI) | payer MEDICARE, OTHER, SELFPAY ==
[2019-06-17 11:02] VITALS: BMI 26.5
--- NOTE | 2019-09-13 11:40 | RAD_ITS ---
STUDY: X-RAY - LEFT KNEE REASON FOR EXAM: Male, 74 years old. Left knee pain TECHNIQUE: 4 view(s) of the knee. COMPARISON: None. FINDINGS: Normal visualized distal femur. Normal visualized proximal tibia and fibula. Normal proximal tibiofibular articulation. There is mild degenerative arthrosis of the medial femorotibial compartment. There is mild degenerative arthrosis of the lateral femorotibial compartment. There is mild degenerative arthrosis of the patellofemoral articulation. The soft tissue structures are unremarkable. RAD/Knee 4 or More Views IMPRESSION: Degenerative arthrosis. Electronically Signed: Wellington King MD at 12:09 EDT , Service support ,
== END ==
PROVIDERS: PCP Internal Medicine; Referring Provider Nurse Practitioner; Visit Provider Nurse Practitioner
DX: M25.562 Pain in left knee (principal)
CPT/HCPCS: 73564

== ENCOUNTER → 2019-09-16 07:43 | Outpatient (CLI) | payer MEDICARE, OTHER, SELFPAY ==
[2019-06-17 11:02] VITALS: BMI 26.5
--- NOTE | 2019-09-16 07:44 | VDLE_ITS ---
Reason For Study: pain Procedure LEFT Exam performed in department. GSV is normal. The exam was abbreviated due to the COVID 19 CFV is compressible, spontaneous, phasic, protocol. competent, and demonstrates normal The exam was diagnostic. augmentation. A preliminary report was called and/or faxed FV is compressible, spontaneous, phasic, to [place] Head. competent and demonstrates normal augmentation. POP V is compressible, spontaneous, phasic, competent and demonstrates normal augmentation. T/P Trunk is compressible. PTV is compressible. LT PerV is compressible. Interpretation Summary Deep veins of the left lower extremity are patent and compressible segmentally. There is no evidence of left lower extremity deep vein thrombosis. Valvular competence appears intact within the proximal deep venous system on the left . The left great saphenous vein appears patent and compressible segmentally. Ordering Physician: Charlotte Head Performed By: Amandeep Kelly RVT and Student
== END ==
PROVIDERS: PCP Internal Medicine; Referring Provider Nurse Practitioner; Visit Provider Nurse Practitioner
DX: M79.662 Pain in left lower leg (principal)
CPT/HCPCS: 93971

== ENCOUNTER → 2019-12-01 10:21 | Outpatient (CLI) | payer MEDICARE, OTHER, SELFPAY ==
[2019-06-17 11:02] VITALS: BMI 26.5
[2019-12-01 11:25] LABS: Absolute Lymphocyte Count 1.95 X10^3/uL (0.83-4.51); Absolute Neutrophil Count 4.2 X10^3/uL (2.0-7.7); Basophil# 0.04 X10^3/uL; Basophil% 0.5 % (0-1); Eosinophil# 0.45 X10^3/uL; Hematocrit 44.7 % (40-54); Hemoglobin 14.4 g/dL (13.0-16.5); Lymphocyte # 1.95 X10^3/ul (4.0); Mean Corp Hgb Conc 32.2 g/dL (32-36); Mean Corpuscular Hgb 30.3 pg (27.0-32.0); Mean Corpuscular Volume 94.1 fL (80-94); Mean Platelet Vol. 10.6 fl (6.2-12.0); Monocyte# 0.86 X10^3/uL; Monocyte% 11.5 % (0-10); NRBC Flagged by Analyzer 0 % (0-5); Neutrophil # 4.18 X10^3/uL (2.7-7.7); Neutrophil % 55.7 % (47-70); Platelet Count 236 K/mm3 (150-450); RBC Distribution Width CV 13.9 % (11.6-14.6); Red Blood Count 4.75 M/mm3 (4.6-6.2); White Blood Count 7.5 K/mm3 (4.4-11.0)
[2019-12-01 11:41] LABS: Hemoglobin A1c 5.8 % (3.8-5.6)
[2019-12-01 11:58] LABS: AST(SGOT) 27 U/L (15-37); Alanine Aminotransfer ALT/SGPT 33 U/L (16-61); Albumin, Serum 3.6 g/dL (3.2-5.0); Alkaline Phosphatase 42 U/L (45-117); Anion Gap 4 (5-15); BUN 24 mg/dL (7-18); BUN/Creat Ratio 19.2 RATIO (10-20); Calcium,Total 9.2 mg/dL (8.5-10.1); Chloride 108 mmol/L (98-107); Cholesterol 143 mg/dL (200); Creatinine, Serum 1.25 mg/dL (0.70-1.30); EST Glomerular Filtration Rate 60 mL/min (>60); Est Glom Filt Rate - Afr Amer 72 mL/min (>60); Free T3 2.8 pg/mL (2.18-3.98); Globulin 3.7 g/dL (2.2-4.2); Glucose 105 mg/dL (74-106); High Density Lipoprotein 44 mg/dL; Potassium 4.1 mmol/L (3.5-5.1); Protein, Total 7.3 g/dL (6.4-8.2); Sodium Level 140 mmol/L (136-145); T4 Free Direct 1.02 ng/dL (0.76-1.46); Thyroid Stim Hormone (TSH) 1.59 uIU/mL (0.358-3.74); Triglycerides 123 mg/dL; Very Low Density Lipoprotein 25 mg/dL (5-40)
== END ==
PROVIDERS: PCP Internal Medicine; Referring Provider Internal Medicine; Visit Provider Internal Medicine
DX: E03.9 Hypothyroidism, unspecified (principal); R73.9 Hyperglycemia, unspecified; E78.00 Pure hypercholesterolemia, unspecified
CPT/HCPCS: 36415; 80053; 80061; 83036; 84439; 84443; 84481; 85025

== ENCOUNTER → 2020-01-26 11:30 | Outpatient (CLI) | payer MEDICARE, OTHER, SELFPAY ==
[2019-06-17 11:02] VITALS: BMI 26.5
[2020-01-26 12:35] LABS: PSA,Total- Diagnostic < 0.01 ng/mL (0.0-4.0)
== END ==
PROVIDERS: PCP Internal Medicine; Visit Provider Urology
DX: C61 Malignant neoplasm of prostate (principal)
CPT/HCPCS: 36415; 84153

== ENCOUNTER → 2020-03-06 08:57 | Outpatient (CLI) | payer MEDICARE, OTHER, SELFPAY ==
[2019-06-17 11:02] VITALS: BMI 26.5
[2020-03-06 11:10] LABS: AST(SGOT) 27 U/L (15-37); Alanine Aminotransfer ALT/SGPT 36 U/L (16-61); Albumin, Serum 3.7 g/dL (3.2-5.0); Alkaline Phosphatase 41 U/L (45-117); Bilirubin, Direct 0.22 mg/dL (0.00-0.30); Cholesterol 137 mg/dL (200); Globulin 3.4 g/dL (2.2-4.2); High Density Lipoprotein 41 mg/dL; Protein, Total 7.1 g/dL (6.4-8.2); Triglycerides 139 mg/dL; Very Low Density Lipoprotein 28 mg/dL (5-40)
== END ==
PROVIDERS: PCP Internal Medicine; Referring Provider Nurse Practitioner Family; Visit Provider Nurse Practitioner Family
DX: E78.5 Hyperlipidemia, unspecified (principal)
CPT/HCPCS: 36415; 80061; 80076

== ENCOUNTER → 2020-03-22 07:10 | Outpatient (CLI) | payer MEDICARE, OTHER, SELFPAY ==
[2020-03-14 11:34] VITALS: BMI 25.1
--- NOTE | 2020-03-22 07:12 | ECHOD_ITS ---
Reason For Study: S/P CABG Procedure This was a 2D Doppler, Color Flow transthoracic echocardiogram. Exam performed in department. Left Ventricle Normal LV size. Left ventricular systolic function is normal. The estimated ejection fraction is 60 %. Stage 3 diastolic dysfunction. No regional wall motion abnormalities noted. Right Ventricle Normal RV size. Normal systolic function. Atria The left atrium is moderately enlarged. The right atrium is mildly enlarged. Bubble contrast study negative for right to left interatrial shunt. Mitral Valve Mild mitral valve prolapse. Mild mitral valve prolapse, posterior leaflet. Mild-Moderate (1-2+) anteriorly directed mitral valve insufficiency. Tricuspid Valve Normal tricuspid valve. Mild (1+) tricuspid valve insufficiency. Pulmonary artery systolic pressure is 32 mmHg. Aortic Valve Normal aortic valve. Trisinus/trileaflet aortic valve. Mild (1+) aortic valve insufficiency. Pulmonic Valve Normal pulmonic valve. Mild (1+) pulmonic valve insufficiency. Great Vessels Normal aortic root. The pulmonary artery is normal size. Normal inferior vena cava. Pericardium/Pleural No pericardial effusion. Medication Performed a rapid injection of agitated mix of 9 cc saline and 1cc air to assess for atrial septal defect. MMode/2D Measurements & Calculations LVIDd: 5.4 cm IVSd: 1.1 cm Ao root diam: 3.2 cm LVIDs: 3.5 cm LVPWd: 1.0 cm RVDd: 4.3 cm FS: 34.1 % LAV(MOD-bp): 80.6 ml LA A4 area: 26.4 cm2 LA dimension(2D): 4.8 cm LAV(MOD-bp) Indexed: 40.9 ml/m2 LAV(MOD-sp2): 66.9 ml LAV(MOD-sp4): 93.4 ml RA A4 area: 20.3 cm2 Time Measurements MV dec time: 0.18 sec Doppler Measurements & Calculations MV E max bill: 124.1 cm/sec Lat Peak E' Bill: 13.6 cm/sec Med Peak E' Bill: 8.6 cm/sec MV A max bill: 66.5 cm/sec E/E' lat: 9.1 E/E' med: 14.3 MV E/A: 1.9 MV V2 max: 124.2 cm/sec Ao V2 max: 156.9 cm/sec AI max bill: 388.6 cm/sec MV max P.2 mmHg Ao max P.9 mmHg AI max P.4 mmHg MV V2 mean: 65.3 cm/sec Ao V2 mean: 104.6 cm/sec AI dec slope: 233.4 cm/sec2 MV mean P.0 mmHg Ao mean P.0 mmHg AI P1/2t: 487.6 msec MV V2 VTI: 36.4 cm Ao V2 VTI: 30.5 cm LV V1 max: 100.1 cm/sec MR max bill: 611.1 cm/sec PA V2 max: 185.2 cm/sec LV V1 max P.0 mmHg MR max P.5 mmHg PA V2 mean: 129.1 cm/sec LV V1 mean P.0 mmHg MR mean bill: 488.0 cm/sec PA V2 VTI: 36.0 cm LV V1 mean: 65.8 cm/sec MR mean P.3 mmHg LV V1 VTI: 22.0 cm MR VTI: 197.1 cm TR max bill: 264.3 cm/sec TR max P.0 mmHg Interpretation Summary Normal LV size. Left ventricular systolic function is normal. The estimated ejection fraction is 60 %. Stage 3 diastolic dysfunction. The left atrium is moderately enlarged. Mild (1+) aortic valve insufficiency. Mild-Moderate (1-2+) anteriorly directed mitral valve insufficiency. Mild mitral valve prolapse, posterior leaflet Compared to previous study, the left ventricular systolic function is the same.. Compared to prior study, there is no significant change. Ordering Physician: Dax Rodriguez Referring Physician: Shira Borjas Performed By: Giana Devlin, TOD, RVT
--- NOTE | 2020-03-22 17:34 | STRESSREP_ITS ---
Stress Test Report Exercise myocardial perfusion stress test. 74-year-old man with a history of coronary artery bypass surgery with a left internal mammary artery to the left anterior descending artery, saphenous vein graft to diagonal branch into the obtuse marginal branch with an occluded saphenous vein graft to obtuse marginal branch. Medications: Vitamin D omega-3 hydrochlorothiazide, rosuvastatin, metoprolol, aspirin, ramipril. Stress protocol: Resting EKG demonstrates normal sinus rhythm with a rate of 56 bpm left axis deviation is noted incomplete left bundle branch block is noted resting blood pressure is 142/80 mmHg. The patient exercised according to the regular Aftab protocol for a total duration of 9 minutes and 49 seconds completing 49 seconds into stage IV of the Aftab protocol. The maximum heart rate was 134 bpm which was 93% of max impacted heart rate the maximum workload was 11.4 metabolic equivalents. The test was terminated due to the target heart rate being achieved. The peak blood pressure was 192/80 mmHg with a peak blood pressure and rate-pressure product of 21,100. Excellent blood pressure response to exercise was noted. No chest pain was noted. Myocardial perfusion protocol. 11.1 mCi of technetium 99m sestamibi was injected at rest. The patient exercised according to regular Aftab protocol for 9 minutes and 49 seconds. At peak exercise 32.9 mCi of technetium 99m sestamibi was injected stress images were obtained stress and rest images were reconstructed and compared in the short axis vertical long horizontal long axis. Gated images were also obtained Perfusion SPECT analysis: Review of the stress images demonstrate normal uptake of tracer noted in the anterior wall septum and lateral wall. The mid inferior wall has a medium size defect which extends to the inferior lateral wall. On the resting images there is mild improvement in the mid inferior wall suggesting mid inferior ischemia an d a previously infarcted inferolateral zone. Gated SPECT analysis: The gated ejection fraction is noted to be 67%. Conclusion: Exercise myocardial perfusion stress test with area of previous inferior lateral infarct and mild mid inferior ischemia. Excellent functional aerobic capacity. No clinical angina noted. This is a low risk scan.
== END ==
PROVIDERS: PCP Internal Medicine; Referring Provider Internal Medicine Cardiovascular Disease; Visit Provider Internal Medicine Cardiovascular Disease
DX: R06.02 Shortness of breath (principal); I25.10 Atherosclerotic heart disease of native coronary artery without angina pectoris; Z95.1 Presence of aortocoronary bypass graft
CPT/HCPCS: 78452; 93017; 93306; A9500; A4216

== ENCOUNTER → 2020-06-05 08:49 | Outpatient (CLI) | payer MEDICARE, OTHER, SELFPAY ==
[2020-03-14 11:34] VITALS: BMI 25.1
[2020-06-05 10:08] LABS: Absolute Lymphocyte Count 1.93 X10^3/uL (0.83-4.51); Absolute Neutrophil Count 4.9 X10^3/uL (2.0-7.7); Basophil# 0.05 X10^3/uL; Basophil% 0.6 % (0-1); Eosinophil# 0.44 X10^3/uL; Eosinophils% 5.4 % (0-5); Hematocrit 46.3 % (40-54); Hemoglobin 14.7 g/dL (13.0-16.5); Lymphocyte # 1.93 X10^3/ul (4.0); Lymphocyte % 23.5 % (19-41); Mean Corp Hgb Conc 31.7 g/dL (32-36); Mean Corpuscular Hgb 29.9 pg (27.0-32.0); Mean Corpuscular Volume 94.3 fL (80-94); Mean Platelet Vol. 10.6 fl (6.2-12.0); Monocyte# 0.84 X10^3/uL; Monocyte% 10.2 % (0-10); NRBC Flagged by Analyzer 0 % (0-5); Neutrophil # 4.93 X10^3/uL (2.7-7.7); Neutrophil % 59.9 % (47-70); Platelet Count 224 K/mm3 (150-450); RBC Distribution Width CV 14.4 % (11.6-14.6); Red Blood Count 4.91 M/mm3 (4.6-6.2); White Blood Count 8.2 K/mm3 (4.4-11.0)
[2020-06-05 10:51] LABS: AST(SGOT) 29 U/L (15-37); Alanine Aminotransfer ALT/SGPT 36 U/L (16-61); Albumin, Serum 3.7 g/dL (3.2-5.0); Alkaline Phosphatase 45 U/L (45-117); Anion Gap 2 (5-15); BUN 22 mg/dL (7-18); BUN/Creat Ratio 16.7 RATIO (10-20); Calcium,Total 9.3 mg/dL (8.5-10.1); Chloride 108 mmol/L (98-107); Creatinine, Serum 1.32 mg/dL (0.70-1.30); EST Glomerular Filtration Rate 56 mL/min (>60); Est Glom Filt Rate - Afr Amer 68 mL/min (>60); Globulin 3.7 g/dL (2.2-4.2); Glucose 93 mg/dL (74-106); Potassium 4.1 mmol/L (3.5-5.1); Protein, Total 7.4 g/dL (6.4-8.2); Sodium Level 138 mmol/L (136-145); Thyroid Stim Hormone (TSH) 1.99 uIU/mL (0.358-3.74)
[2020-06-05 11:07] LABS: Microalbumin,Random Urine 17.1 mg/L (NO RANGE EST.); Microalbumin:Creatinine Ratio 7.3 mg/g CRE (<30 mg/g CRE)
== END ==
PROVIDERS: PCP Internal Medicine; Referring Provider Internal Medicine; Visit Provider Internal Medicine
DX: I25.10 Atherosclerotic heart disease of native coronary artery without angina pectoris (principal); E03.9 Hypothyroidism, unspecified
CPT/HCPCS: 36415; 80053; 82043; 82570; 84443; 85025

== ENCOUNTER → 2020-07-31 11:17 | Outpatient (CLI) | payer MEDICARE, OTHER, SELFPAY ==
[2020-03-14 11:34] VITALS: BMI 25.1
[2020-07-31 12:30] LABS: PSA,Total- Diagnostic < 0.01 ng/mL (0.0-4.0)
== END ==
PROVIDERS: PCP Internal Medicine; Referring Provider Urology; Visit Provider Urology
DX: C61 Malignant neoplasm of prostate (principal)
CPT/HCPCS: 36415; 84153

== ENCOUNTER → 2020-12-06 10:31 | Outpatient (CLI) | payer MEDICARE, OTHER, SELFPAY ==
[2020-12-06 12:14] LABS: Absolute Lymphocyte Count 1.93 X10^3/uL (0.83-4.51); Absolute Neutrophil Count 5.2 X10^3/uL (2.0-7.7); Basophil# 0.06 X10^3/uL; Basophil% 0.7 % (0-1); Eosinophil# 0.48 X10^3/uL; Eosinophils% 5.6 % (0-5); Hematocrit 43.4 % (40-54); Hemoglobin 14.3 g/dL (13.0-16.5); Lymphocyte # 1.93 X10^3/ul (0.83-4.51); Lymphocyte % 22.4 % (19-41); Mean Corp Hgb Conc 32.9 g/dL (32-36); Mean Corpuscular Hgb 30.7 pg (27.0-32.0); Mean Corpuscular Volume 93.1 fL (80-94); Mean Platelet Vol. 10.8 fl (6.2-12.0); Monocyte# 0.92 X10^3/uL; Monocyte% 10.7 % (0-10); NRBC Flagged by Analyzer 0 % (0-5); Neutrophil # 5.21 X10^3/uL (2.7-7.7); Neutrophil % 60.3 % (47-70); Platelet Count 220 K/mm3 (150-450); RBC Distribution Width CV 15.4 % (11.6-14.6); RBC Distribution Width SD 52.4 fl (35.1-43.9); Red Blood Count 4.66 M/mm3 (4.6-6.2); White Blood Count 8.6 K/mm3 (4.4-11.0)
[2020-12-06 12:40] LABS: Microalbumin,Random Urine 15.5 mg/L (NO RANGE EST.); Microalbumin:Creatinine Ratio 14.2 mg/g CRE (<30 mg/g CRE)
[2020-12-06 12:49] LABS: ALB/GLOB Ratio 0.9 RATIO (0.9-2.4); AST(SGOT) 22 U/L (15-37); Alanine Aminotransfer ALT/SGPT 35 U/L (16-61); Albumin, Serum 3.4 g/dL (3.2-5.0); Alkaline Phosphatase 40 U/L (45-117); Anion Gap 4 (5-15); BUN 25 mg/dL (7-18); BUN/Creat Ratio 19.5 RATIO (10-20); Calcium,Total 8.8 mg/dL (8.5-10.1); Chloride 107 mmol/L (98-107); Cholesterol 140 mg/dL (200); Creatinine, Serum 1.28 mg/dL (0.70-1.30); EST Glomerular Filtration Rate 58 mL/min (>60); Est Glom Filt Rate - Afr Amer 70 mL/min (>60); Globulin 3.8 g/dL (2.2-4.2); Glucose 103 mg/dL (74-106); High Density Lipoprotein 40 mg/dL; PSA,Total - Annual Screen < 0.01 ng/mL (0.00-4.00); Potassium 4.2 mmol/L (3.5-5.1); Protein, Total 7.2 g/dL (6.4-8.2); Sodium Level 140 mmol/L (136-145); Thyroid Stim Hormone (TSH) 1.55 uIU/mL (0.358-3.74); Triglycerides 115 mg/dL; Very Low Density Lipoprotein 23 mg/dL (5-40)
[2020-12-06 13:12] LABS: Hepatitis C Antibody Non-Reactive (Nonreactive); Vitamin D,25 Hydroxy 40.2 ng/mL
== END ==
PROVIDERS: PCP Internal Medicine; Referring Provider Internal Medicine; Visit Provider Internal Medicine
DX: I25.10 Atherosclerotic heart disease of native coronary artery without angina pectoris (principal); E03.9 Hypothyroidism, unspecified; E55.9 Vitamin D deficiency, unspecified; Z11.59 Encounter for screening for other viral diseases; Z12.5 Encounter for screening for malignant neoplasm of prostate
CPT/HCPCS: 36415; 80053; 80061; 82043; 82306; 82570; 84153; 84443; 85025; 86803; G0103

== ENCOUNTER 2021-03-15 09:01 | Outpatient (CLI) | payer MEDICARE, OTHER, SELFPAY ==
[2021-03-15 11:35] LABS: BNP,B-Type NATRIURETIC PEPTIDE 67.5 pg/mL (0-100)
== END 2021-03-15 23:59 | disposition short-term general hospital (02) ==
LOC: LAB 09:04
PROVIDERS: PCP Internal Medicine; Referring Provider Internal Medicine Cardiovascular Disease; Visit Provider Internal Medicine Cardiovascular Disease
DX: R06.00 Dyspnea, unspecified (principal)
CPT/HCPCS: 36415; 83880

== ENCOUNTER 2021-03-28 12:27 | Outpatient (CLI) | payer MEDICARE, OTHER, SELFPAY ==
--- NOTE | 2021-03-28 12:29 | ECHOTEE_ITS ---
Reason For Study: DYSPNEA Medication DARCY probe 6VT-D (SN [id number]) passed without difficulty. No complications were noted. Cetacaine Topical [place] given X3 orally. Versed 2 mg given slow IVP. Fentanyl 50 mcg given slow IVP. Performed a rapid injection of agitated mix of 9 cc saline and 1cc air to assess for atrial septal defect. Left Ventricle Normal LV size. Left ventricular systolic function is normal. The estimated ejection fraction is 60 %. No regional wall motion abnormalities noted. Right Ventricle Normal RV size. Normal systolic function. Atria Bubble contrast study negative for right to left interatrial shunt. Normal left atrium. No thrombus is detected in the left atrial appendage. Normal right atrium. Mitral Valve Posterior leaflet mitral valve prolapse. Moderate (2+) anteriorly directed mitral valve insufficiency. Tricuspid Valve Normal tricuspid valve. Aortic Valve Trisinus/trileaflet aortic valve. Mild (1+) aortic valve insufficiency. Pulmonic Valve Normal pulmonic valve. Vessels Normal aortic root. Mild atherosclerosis of the aortic arch. The pulmonary artery is normal size. Pericardium No pericardial effusion. ECHO/Echo Transesophageal (DARCY) Interpretation Summary Normal LV size. Left ventricular systolic function is normal. The estimated ejection fraction is 60 %. Posterior leaflet mitral valve prolapse. Moderate (2+) anteriorly directed mitral valve insufficiency. Bubble contrast study negative for right to left interatrial shunt. Ordering Physician: Dax Rodriguez Referring Physician: HILTON JAY Performed By: Jacqueline Siddiqui, CARMELACS, RVT
== END 2021-03-28 23:59 | disposition short-term general hospital (02) ==
LOC: CVS 12:28
PROVIDERS: PCP Internal Medicine; Referring Provider Internal Medicine Cardiovascular Disease; Visit Provider Internal Medicine Cardiovascular Disease
DX: R06.00 Dyspnea, unspecified (principal); Z20.822 Contact with and (suspected) exposure to COVID-19; I35.0 Nonrheumatic aortic (valve) stenosis
CPT/HCPCS: 87426; 93312; 93320; 93325; J7040; A4216

== ENCOUNTER 2021-04-30 08:05 | Day surgery (SDC) | payer MEDICARE, OTHER, SELFPAY ==
--- NOTE | 2021-04-10 10:12 | RAD_ITS ---
STUDY: X-RAY CHEST REASON FOR EXAM: Male, 75 years old. Worsening shortness of breath TECHNIQUE: PA and lateral views of the chest. COMPARISON: 10/07/2018 FINDINGS: Stable retrocardiac hiatal hernia The lungs are clear and expanded. There is no demonstrated pleural abnormality. Sternal cerclage wires and vascular clips are present from a prior sternotomy and coronary artery bypass graft procedure (CABG). Normal mediastinum and leonel. Normal visualized pulmonary arteries. Normal visualized aortic arch and descending thoracic aorta. Normal visualized thoracic spine. Normal visualized ribs, clavicles, and shoulders. There is no demonstrated abnormality of the visualized soft tissue structures of the upper abdomen. RAD/Chest PA and Lateral IMPRESSION: No acute pulmonary process Electronically Signed: Wellington King MD at 17:38 EST ,
[2021-04-10 11:23] LABS: Absolute Lymphocyte Count 2.09 X10^3/uL (0.83-4.51); Absolute Neutrophil Count 5.2 X10^3/uL (2.0-7.7); Basophil# 0.05 X10^3/uL; Basophil% 0.6 % (0-1); Eosinophil# 0.38 X10^3/uL; Eosinophils% 4.3 % (0-5); Hematocrit 44.2 % (40-54); Hemoglobin 14.7 g/dL (13.0-16.5); Lymphocyte # 2.09 X10^3/ul (0.83-4.51); Lymphocyte % 23.9 % (19-41); Mean Corp Hgb Conc 33.3 g/dL (32-36); Mean Corpuscular Hgb 30.5 pg (27.0-32.0); Mean Corpuscular Volume 91.7 fL (80-94); Mean Platelet Vol. 10.9 fl (6.2-12.0); Monocyte# 0.98 X10^3/uL; Monocyte% 11.2 % (0-10); NRBC Flagged by Analyzer 0 % (0-5); Neutrophil # 5.23 X10^3/uL (2.7-7.7); Neutrophil % 59.8 % (47-70); Platelet Count 246 K/mm3 (150-450); RBC Distribution Width CV 14.4 % (11.6-14.6); RBC Distribution Width SD 48.4 fl (35.1-43.9); Red Blood Count 4.82 M/mm3 (4.6-6.2); White Blood Count 8.8 K/mm3 (4.4-11.0)
[2021-04-10 11:49] LABS: Anion Gap 6 (5-15); BUN 17 mg/dL (7-18); BUN/Creat Ratio 12.7 RATIO (10-20); Calcium,Total 9.1 mg/dL (8.5-10.1); Chloride 105 mmol/L (98-107); Creatinine, Serum 1.34 mg/dL (0.70-1.30); EST Glomerular Filtration Rate 55 mL/min (>60); Est Glom Filt Rate - Afr Amer 66 mL/min (>60); Glucose 101 mg/dL (74-106); Sodium Level 139 mmol/L (136-145)
[2021-04-27 09:49] VITALS: BMI 25.5
--- NOTE | 2021-04-27 10:18 | HP.PCM_ITS ---
History and Physical Date of Admission: 04/30/21 Details: This is a 76-year-old gentleman that presents here today for a heart catheterization. He has a history of coronary artery disease status post coronary bypass surgery with a left internal mammary artery to left anterior descending artery saphenous vein graft to diagonal branch and obtuse marginal branch. He also has a history of mitral valve prolapse as well as mitral regurgitation. In February of 2016 he underwent a heart catheterization which demonstrated patency of his left internal mammary artery to the left anterior descending artery as well as the saphenous vein graft to diagonal branch. The saphenous vein graft to the obtuse marginal branch was occluded. Medical m anagement was commended. He says that he has been somewhat short of breath. We did perform a stress test in February 2020 where he exercised to 11.4 metabolic equivalents with mild mid inferior ischemia. His echocardiogram from last year also demonstrated an ejection fraction of 60%, stage III diastolic dysfunction, moderate left atrial enlargement, mild mitral valve prolapse with 1-2+ anteriorl y directed mitral regurgitation. This was apparently unchanged. From a cardiac standpoint patient is doing well. He does not have any chest discomfort/heaviness/tightness. His exercise tolerance is stable for his age. His major issue at this particular time is that he has been short of breath with exertion. He has not had any chest pain or paroxysmal nocturnal dyspnea or pedal edema no near syncope or syncope. He underwent a transesophageal echocardiogram in 03/28/2021 that showed ejection fraction of 60% and moderate anteriorly directed mitral valve insufficiency with posterior leaflet mitral valve prolapse. To assess further, he he will undergo a heart catheterization. Intake Vital Signs: See EMR Intake Visit Reasons: [facility] Allergies bee venom protein (honey bee) Allergy (Unknown, Verified 03/15/21 07:25) hives/anaphylaxis Medications See EMR Ejection fraction %: 60 to 64 [facility] Medical History Atherosclerosis of coronary artery bypass graft of [place] heart without angina pectoris Atherosclerotic heart disease of [place] coronary artery without angina pectoris Elevated PSA Essential hypertension Hyperlipidemia Hypothyroidism Nonrheumatic mitral (valve) insufficiency Nonrheumatic mitral (valve) prolapse Old inferolateral myocardial infarction Prostate cancer Urgency-frequency syndrome Surgical History H/O coronary artery bypass surgery (11/1994) H/O prostatectomy History of left heart catheterization Family History Father , of [place]'s disease Rohini's disease Mother , Age 60 of [place] CAD (coronary artery disease) Myocardial infarction Brother CAD (coronary artery disease) history of cabg Brother CAD (coronary artery disease) Stented coronary artery Diabetes Sister CAD (coronary artery disease) Myocardial infarction Hypertension Social History Smoking Status: Former smoker alcohol intake: current alcohol intake frequency: other Alcohol type: beer and wine caffeine: Yes Type: coffee Number of servings: 3 ROS Const Const: Negative for fatigue, weakness, headache(s), frequent falls, difficulty sleeping or excessive sweating Eyes Eyes: Negative for loss of peripheral vision, transient loss of vision, blurry vision, double vision or tunnel vision ENT ENT: Negative for headache(s), dizziness, Nosebleed/epistaxis or balance problems Cardio Chest Pain: No Palpitations: No Edema: None Muscle aches with walking: None Resp Respiratory: Positive for SOB with activity (when walking his dog or climbing stairs); Negative for SOB at rest, SOB orthopnea\SOB lying down, Cough or paroxysmal nocturnal dyspnea GI GI: Negative nausea, vomiting, heartburn or black,tarry stools : Negative for hematuria Musc Musc: Negative for muscle aches/ myalgia, muscle weakness, joint pain or balance problems Skin Skin: Negative non-healing lesions, rash or unusual bruising Neuro Neuro: Positive for lightheadedness (positional); Negative for dizziness, near syncope, syncope, orthostatic symptoms, frequent falls, headache(s), weakness, blurry vision, double vision or lack of coordination [place] Hematologic/Lymphatic: Negative for easy bleeding or easy bruising Endo Endo: Negative for fatigue, excessive sweating or increased thirst/drinking Psych Psych: Negative for anxiety or depression Allergy Allergy/Immunology: Negative for hives and Negative for rash Cardiology Exam Const Appearance: cooperative, healthy appearing, no acute distress, well developed and well groomed Nutritional Appearance: average body habitus and well nourished Orientation: alert, awake and oriented x3 Head Head: normal to inspection, normocephalic and atraumatic Ears: hearing grossly normal bilaterally and external ears normal Nose: external nose normal, nares normal, nasal mucous membranes and turbinates normal, septum normal and no nasal discharge Face and Sinus: face symmetric Mouth: oral mucosae normal, tongue normal, oropharynx normal and moist mucous membranes Teeth and gingiva: dentition normal Throat: posterior oropharynx normal, tonsils normal and uvula midline Eyes General: appearance normal, both eyes and all related structures Eyelids: eyelids normal Conjunctivae: conjunctivae normal Pupils: PERRL, normal by confrontation and accommodation normal EOM: EOM intact bilaterally Neck Neck: normal visual inspection, trachea midline and no JVD JVD: +5 Carotids: normal carotid upstroke and bounding pulses Chest Chest inspection: normal inspection of the chest, symmetric chest movement and normal respiratory effort Auscultation: Bilateral: Clear to Auscultation Cardio Palpation: normal PMI Rate: regular rate Rhythm: regular rhythm Heart sounds: S1 normal, S2 normal, murmur and normal, physiologic split S2; Negative rub or gallop Murmur: Grade 3/6, harsh, holosystolic and ELIZABETH loudest at apex -> axilla GI GI: normal to inspection, soft, no hepatosplenomegaly and bowel sounds present Neuro General: patient alert, patient awake, patient oriented x3, gait normal, moves all extremities and no focal sensory deficit Skin Skin: no rashes or lesions noted Extremities Pulses: Normal: Right Femoral Pulse, Left Femoral Pulse, Right Dorsalis Pedis Pulse, Left Dorsalis Pedis Pulse, Right Posterior Tibial Pulse, Left Posterior Tibial Pulse, Right Radial Pulse and Left Radial Pulse Lower Extremity Edema: None: Bilateral Musculoskel Musculoskeletal: No joint tenderness Psych Psychological: normal affect Supplemental Info Supplemental Information Stress Test 03/22/2020 Conclusion: Exercise myocardial perfusion stress test with area of previous inferior lateral infarct and mild mid inferior ischemia. Excellent functional aerobic capacity. No clinical angina noted. This is a low risk scan. Echocardiogram 03/22/2020 Interpretation Summary Normal LV size. Left ventricular systolic function is normal. The estimated ejection fraction is 60 %. Stage 3 diastolic dysfunction. The left atrium is moderately enlarged. Mild (1+) aortic valve insufficiency. Mild-Moderate (1-2+) anteriorly directed mitral valve insufficiency. Mild mitral valve prolapse, posterior leaflet Compared to previous study, the left ventricular systolic function is the same.. Compared to prior study, there is no significant change. Transesophageal echocardiogram from 03/28/2021: Interpretation Summary Normal LV size. Left ventricular systolic function is normal. The estimated ejection fraction is 60 %. Posterior leaflet mitral valve prolapse. Moderate (2+) anteriorly directed mitral valve insufficiency. Bubble contrast study negative for right to left interatrial shunt. Laboratory Tests 12/06/20 10:35 Triglycerides 115 Cholesterol 140 LDL Cholesterol 77 HDL Cholesterol 40 Labs: LDL Cholesterol 77 mg/dL (0-130) HDL Cholesterol 40 mg/dL (40-) Triglycerides 115 mg/dL (-199) VLDL Cholesterol 23 mg/dL (5-40) Diagnostics: Echocardiogram Stress Test NM Stress Test Venous Doppler Study Pulmonary: No Data to Display Assessment and Plan Assessment and Plan (1) Dyspnea on exertion: Status: Acute Plan - Dr. Dax Rodriguez MD: His BNP on 03/15/2019 was noted to be 67.5. His most recent transesophageal echocardiogram showed a preserved ejection fraction. He will proceed with heart catheterization to assess symptoms further. Based on results, further recommendation will be made. (2) Nonrheumatic mitral (valve) prolapse: Status: Chronic Plan - Dr. Dax Rodriguez MD: He does have a history of mitral valve prolapse. His transesophageal echocardiogram from March 2021 showed moderate anteriorly directed mitral valve insufficiency with posterior leaflet mitral valve prolapse. (3) Essential hypertension: Status: Chronic Plan - Dr. Dax Rodriguez MD: He does have a history of hypertension which is well controlled on the current medications and no other major changes will be made. (4) H/O coronary artery bypass surgery: Status: Resolved Comment: CABG x 3 SWANSON-LAD, SVG-D1, SVG-OM2 11/1994 Plan - Dr. Dax Rodriguez MD: He is status post coronary bypass surgery. His bypass anatomy was evaluated in 2017 and he was noted to have the saphenous vein graft to obtuse marginal branch occluded. This corroborates with the mild mid inferior ischemia. No changes will be made other than changing his aspirin to 81 mg a day. This will be asses sed further with heart catheterization. (5) Hyperlipidemia: Status: Chronic Qualifiers: Hyperlipidemia type: pure hypercholesterolemia Qualified Code(s): E78.00 - Pure hypercholesterolemia, unspecified; E78.0 - Pure hypercholesterolemia Plan - Dr. Dax Rodriguez MD: He does have a history of hyperlipidemia. His most recent lipid profile demonstrating a total cholesterol 140, LDL of 77, HDL of 40. He will remain on his current medical therapy with no changes.
--- NOTE | 2021-04-30 08:36 | EKG12_ITS ---
Test Reason : PRE OP Blood Pressure : / mmHG Vent. Rate : 056 BPM Atrial Rate : 056 BPM P-R Int : 148 ms QRS Dur : 126 ms QT Int : 448 ms P-R-T Axes : 029 -46 -02 degrees QTc Int : 432 ms Sinus bradycardia Left axis deviation Left ventricular hypertrophy with QRS widening Abnormal ECG When compared with ECG of 19-JAN-2019 13:35, No significant change was found Confirmed by SHARA LADD, DAX ([id number]), online editor RAPHAEL LEVINE ([id number]) on 04/30/2021 2:24:52 PM Referred By: Dax Rodriguez Confirmed By:DAX RODRIGUEZ MD
--- NOTE | 2021-04-30 10:07 | CL.D_ITS ---
Patient Name: СЕРГЕЙ ALMEIDA Study Date: 04/30/2021 Performing: Dax Rodriguez MD Ht: 70.07 inches 178 cm : 1945 Wt: 178.57 lbs 81 kg Age: 76 Gender: male BSA: 1.99 PROCEDURE(S) PERFORMED [id number])LHC/COR/LV/CABG CLINICAL PROFILE AND INDICATIONS Heart Failure: NYHA Class: 2, Newly Diagnosed: Yes, Heart Failure Type: Systolic Stress/Imaging Stress/Image Study Performed: No CAD Presentations: Other: SOB CONCLUSIONS Coronary artery disease with patent SWANSON to the LAD and saphenous vein graft to the diagonal vessel. Ostial left main coronary stenosis subtending the circumflex artery distribution Moderate mitral valve prolapse with moderate mitral regurgitation and preserved ejection fraction wit h normal left ventricular end-diastolic pressure RECOMMENDATIONS Consider mitral valve clips to the mitral valve and possible ostial PCI of the left main Will refer to a tertiary care center. DESCRIPTION OF PROCEDURE The patient arrived to the procedure lab. The risks and benefits of the procedure as well as a full d escription of our services here and current unavailability of surgical backup were fully explained to the patient and/or their significant other prior to the catheterization. The Timeout was completed, verifying the correct patient and procedure. The patient's procedural site was prepped and draped in the usual fashion. Local anesthetic was given subcutaneously to right groin region with Lidocaine 2%. Using a modified Seldinger technique, arterial access was obtained via the right femoral artery, a 5 Fr sheath was inserted. Left Coronary Artery selective angiography was performed in multiple views u sing a 5 Fr. JL4 catheter. Saphenous Vein graft to the DIAG 1 selective angiography was performed in multiple views using a 5 Fr. 3DRC ([place]) catheter. Right Coronary Artery selective angiography wa s then performed in multiple views using a 5 Fr. 3DRC ([place]) catheter. Left internal mammary artery graft to the LAD selective angiography was performed in multiple views using a 5 Fr. 3 DRC ([place]) catheter. Left Ventriculography was performed in RUIZ projection using a 5 Fr. Pigtail catheter. LV to AO pullback pressures were then recorded.The arterial sheath was pulled and a Mynx cl osure device was deployed for hemostasis CORONARY ANGIOGRAPHY DOMINANCE: Left Dominant LEFT HEART ASSESSMENT Left Ventricular Ejection Fraction: by LV Gram 65 % Normal LV wall motion Normal Left Ventricular systolic function LEFT MAIN: Ostial 70% stenosis LEFT ANTERIOR DESCENDING ARTERY: PROX LAD: is occluded CIRCUMFLEX ARTERY: Mild disease with occlusion of the first obtuse marginal vessel. RIGHT CORONARY ARTERY: Nondominant vessel with diffuse disease GRAFTS: SWANSON graft to the Mid LAD is patent Saphenous Vein graft to the 1st Diagonal has a mid lesion of 40 % Saphenous Vein graft to the 1st Diagonal is patent Saphenous Vein graft to the 1st OM is totally occluded VALVE FINDINGS: Mitral Valve Prolapse Moderate Mitral Valve Insufficiency - Grade 3 COMPLICATIONS No Complications PROCEDURE MEDICATIONS Fentanyl 50 mcg IV Versed 1 mg IV Versed 1 mg IV Oxygen: 2 L/min via nasal cannula SUMMARY OF HEMODYNAMIC DATA Time AIR REST ECG 08:19:30 AO 152/76 (106) SA 09:33:26 LV 148/14, 23 09:42:47 LV 135/12, 21 09:42:56 LV 129/13, 22 09:44:31 LVp 135/11, 22 09:44:41 AOp 137/68 (97) 09:44:46 AO 138/68 (96) 09:44:47 Signed By Dax Rodriguez MD On 04/30/2021 10:06:12 AM Dax Rodriguez MD
== END 2021-04-30 23:59 | disposition home or self-care (01) ==
LOC: CLSP 08:06
PROVIDERS: PCP Internal Medicine; Referring Provider Internal Medicine Cardiovascular Disease; Visit Provider Internal Medicine Cardiovascular Disease
DX: I25.10 Atherosclerotic heart disease of native coronary artery without angina pectoris (principal); I34.0 Nonrheumatic mitral (valve) insufficiency; I34.1 Nonrheumatic mitral (valve) prolapse; I10 Essential (primary) hypertension; E78.5 Hyperlipidemia, unspecified; E03.9 Hypothyroidism, unspecified; Z95.1 Presence of aortocoronary bypass graft; I25.2 Old myocardial infarction; Z90.79 Acquired absence of other genital organ(s); Z85.46 Personal history of malignant neoplasm of prostate; Z87.891 Personal history of nicotine dependence
CPT/HCPCS: 36415; 71046; 80048; 85025; 93005; 93459; 99152; 99153; C1760; J7040; Q9967; C1769

== ENCOUNTER 2021-06-07 10:11 | Outpatient (CLI) | payer MEDICARE, OTHER, SELFPAY ==
[2021-06-07 11:54] LABS: Absolute Lymphocyte Count 1.75 X10^3/uL (0.83-4.51); Absolute Neutrophil Count 5.5 X10^3/uL (2.0-7.7); Basophil# 0.04 X10^3/uL; Basophil% 0.5 % (0-1); Eosinophil# 0.29 X10^3/uL; Eosinophils% 3.4 % (0-5); Hematocrit 45.9 % (40-54); Hemoglobin 14.9 g/dL (13.0-16.5); Lymphocyte # 1.75 X10^3/ul (0.83-4.51); Lymphocyte % 20.6 % (19-41); Mean Corp Hgb Conc 32.5 g/dL (32-36); Mean Corpuscular Hgb 29.6 pg (27.0-32.0); Mean Corpuscular Volume 91.3 fL (80-94); Mean Platelet Vol. 10.7 fl (6.2-12.0); Monocyte# 0.88 X10^3/uL; Monocyte% 10.4 % (0-10); NRBC Flagged by Analyzer 0 % (0-5); Neutrophil # 5.47 X10^3/uL (2.7-7.7); Neutrophil % 64.5 % (47-70); Platelet Count 226 K/mm3 (150-450); RBC Distribution Width CV 15.2 % (11.6-14.6); RBC Distribution Width SD 51.2 fl (35.1-43.9); Red Blood Count 5.03 M/mm3 (4.6-6.2); White Blood Count 8.5 K/mm3 (4.4-11.0)
[2021-06-07 12:11] LABS: Vitamin D,25 Hydroxy 34.6 ng/mL
[2021-06-07 12:29] LABS: ALB/GLOB Ratio 1.1 RATIO (0.9-2.4); AST(SGOT) 24 U/L (15-37); Alanine Aminotransfer ALT/SGPT 29 U/L (16-61); Albumin, Serum 3.9 g/dL (3.2-5.0); Alkaline Phosphatase 45 U/L (45-117); Anion Gap 5 (5-15); BUN 21 mg/dL (7-18); BUN/Creat Ratio 14.7 RATIO (10-20); Chloride 106 mmol/L (98-107); Cholesterol 137 mg/dL (200); Creatinine, Serum 1.43 mg/dL (0.70-1.30); EST Glomerular Filtration Rate 51 mL/min (>60); Est Glom Filt Rate - Afr Amer 62 mL/min (>60); Globulin 3.6 g/dL (2.2-4.2); Glucose 113 mg/dL (74-106); High Density Lipoprotein 41 mg/dL; Protein, Total 7.5 g/dL (6.4-8.2); Sodium Level 138 mmol/L (136-145); Thyroid Stim Hormone (TSH) 1.42 uIU/mL (0.358-3.74); Triglycerides 110 mg/dL; Very Low Density Lipoprotein 22 mg/dL (5-40)
== END 2021-06-07 23:59 | disposition home or self-care (01) ==
LOC: MTLAB 10:13
PROVIDERS: PCP Internal Medicine; Referring Provider Internal Medicine; Visit Provider Internal Medicine
DX: E03.9 Hypothyroidism, unspecified (principal); E55.9 Vitamin D deficiency, unspecified; E78.00 Pure hypercholesterolemia, unspecified; I25.10 Atherosclerotic heart disease of native coronary artery without angina pectoris
CPT/HCPCS: 36415; 80053; 80061; 82306; 84443; 85025

== ENCOUNTER → 2021-08-13 | Outpatient (CLI) | payer MEDICARE, OTHER, SELFPAY ==
[2021-08-13 13:37] LABS: PSA,Total- Diagnostic < 0.01 ng/mL (0.0-4.0)
== END | disposition home or self-care (01) ==
LOC: LAB 11:35
PROVIDERS: PCP Internal Medicine; Visit Provider Urology
DX: C61 Malignant neoplasm of prostate (principal)
CPT/HCPCS: 36415; 84153

== ENCOUNTER 2021-09-18 10:10 | Emergency (ER) | payer MEDICARE, OTHER, SELFPAY ==
[2021-09-18 10:10] VITALS: BP 133/77; PULSE 69; RESP 18; TEMP 36.6; O2SAT 99; BMI 25.1
--- NOTE | 2021-09-18 10:50 | EDS_ITS ---
HPI History of Present Illness Chief Complaint: General Illness Informant: patient and spouse/S.O. Onset/Context/Timing Onset: Today Context: Gradual Onset Timing: Continuous Quality: painless swelling Location: lower lip, the right half Current Severity: Mild Maximum Severity: Moderate Worsened by: nothing Relieved by: nothing, tried no specific treatments Associated Symptoms Associated Symptoms: none Narrative Narrative: Patient had a recent heart catheterization and left main artery stent at [facility] after being referred there for his mitral valve prolapse and the possibility of a mitral clip. He was told that he needed the coronary artery fixed before he could be considered for a clip. The only new medication he was placed on subsequently was clopidogrel. This morning, he woke up with a swollen right lower lip. No pain. No tongue involvement, no throat swelling, no trouble talking or swallowing. He denies having any trouble speaking or understanding others, no numbness tingling weakness in an arm or leg or trouble with his balance that is new. He took his usual morning meds which include ramipril which he has been on for years. The swelling was persistent this morning, but now that they are here in the emergency department, he and his both agree that it is much improved compared to what it was before. He denies any other symptoms right now. 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 Elevated PSA Essential hypertension Hyperlipidemia Hypothyroidism Nonrheumatic mitral (valve) insufficiency Nonrheumatic mitral (valve) prolapse Old inferolateral myocardial infarction Prostate cancer Urgency-frequency syndrome Home Medications cholecalciferol (vitamin D3) 25 mcg (1,000 unit) tablet 1,000 unit PO DAILY SUPPLEMENT 01/14/14 [History Last Taken 10/06/18] multivitamin with folic acid 400 mcg tablet 1 tab PO DAILY SUPPLEMENT 01/14/14 [History Last Taken 10/06/18] latanoprost 0.005 % eye drops 1 drp EACH EYE QHS EYES 01/03/17 [History Last Taken 10/06/18] omega-3 fatty acids-fish oil 684 mg-1,200 mg capsule,delayed release 1 ea PO DAILY SUPPLEMENT 01/03/17 [History Last Taken 10/06/18] cinnamon bark 500 mg capsule 500 mg PO DAILY 10/07/18 [History Last Taken 10/06/18] coenzyme [id number]-[id number] E 100 mg-5 unit capsule 1 cap PO DAILY 10/07/18 [History Last Taken 10/06/18] magnesium oxide 500 mg capsule 500 mg PO DAILY 10/07/18 [History Last Taken 10/06/18] vitamin B complex 1 tab PO DAILY 10/07/18 [History Last Taken 10/06/18] epinephrine 0.3 mg/0.3 mL injection, auto-injector 0.3 mg IM X1 01/19/19 [History Last Taken Unknown] nitroglycerin 0.4 mg sublingual tablet (Nitrostat) 0.4 mg sublingual Q5M PRN chest pain #25 tabs 12/07/19 [Rx Last Taken Unknown] aspirin 81 mg tablet,delayed release (Adult Low Dose Aspirin) 81 mg PO QDAY #90 tabs 03/15/21 [Rx Last Taken 04/30/21] furosemide 40 mg tablet (Lasix) 40 mg PO DAILY #90 tabs 03/15/21 [Rx Last Taken Unknown] metoprolol tartrate 25 mg tablet 12.5 mg PO BID BP #90 tabs 06/19/21 [Rx Last Taken Unknown] rosuvastatin 5 mg tablet 5 mg PO QHS cholesterol #90 tabs 08/20/21 [Rx Last Taken Unknown] levothyroxine 100 mcg tablet 100 mcg PO DAILY THYROID #90 tabs 09/06/21 [Rx Last Taken Unknown] clopidogrel 75 mg tablet 75 mg PO DAILY 09/18/21 [History Last Taken Unknown] Allergy/AdvReac Type Severity Reaction Status Date / Time bee venom protein (honey bee) Allergy Unknown hives/anaph Verified 09/18/21 10:13 ylaxis Family History Father , of [place]'s disease Rohini's disease Mother , Age 60 of [place] CAD (coronary artery disease) Myocardial infarction Brother CAD (coronary artery disease) history of cabg Brother CAD (coronary artery disease) Stented coronary artery Diabetes Sister CAD (coronary artery disease) Myocardial infarction Hypertension Surgical History H/O coronary artery bypass surgery (11/1994) H/O prostatectomy History of left heart catheterization (04/30/21) Social History Smoking Status: Former smoker alcohol intake: current alcohol intake frequency: other Alcohol type: beer and wine caffeine: Yes Type: coffee Number of servings: 3 ROS ROS ED Constitutional Constitutional ED: Denies chills or fever(s) Eyes Eyes: Denies change in vision or diplopia ENT ENT ED: Reports as per HPI and lip swelling; Denies rhinorrhea, sore throat, throat swelling or tongue swelling Cardiovascular Cardiovascular: Denies chest pain or palpitations Respiratory/Chest Respiratory/Chest: Denies cough or dyspnea Gastrointestinal Gastrointestinal: Denies abdominal pain, diarrhea, nausea or vomiting Genitourinary Genitourinary ED: Denies dysuria or hematuria Musculoskeletal Musculoskeletal: Denies back pain or neck pain Integumentary Denies abscess or rash Neurologic Neurologic: Denies headache(s), paresthesias or weakness Psychiatric Psychiatric: Denies anxiety or suicidal thoughts Hematologic/Lymphatic Hematologic/Lymphatic: Reports easy bleeding and easy bruising EXAM Physical Exam Const Vital Signs: 09/18/21 10:10 Temperature 97.9 F Temperature Source Temporal Pulse Rate 69 Respiratory Rate 18 Blood Pressure 133/77 H Blood Pressure Mean 95 Pulse Ox 99 Oxygen Delivery Method Room Air Positive well nourished and well developed General Appearance ED: well developed and NAD HEENT Reports moist mucous membranes HEENT Narrative: The right side of the lower lip is edematous and nontender. There are no other lesions to suggest an obvious cause. Normal dentition. No trismus. Normal tongue no elevation, no sublingual edema, no posterior oropharyngeal abnormality, no stridor. normocephalic and atraumatic Eyes PERRL and EOMs intact bilaterally Neck full ROM and supple Chest Wall inspection of chest normal and palpation of chest normal Resp normal respiratory effort and clear to auscultation bilaterally Effort and Inspection: able to speak in complete sentences Cardio regular rate, regular rhythm and no murmurs GI non-tender and non-distended Auscultation: normoactive bowel sounds Palpation: soft Back/Spine no CVA tenderness General Back: other FROM Extremity normal to inspection General Extremety ED: Negative for edema, pulses abnormal or tenderness General Extremity: Negative for edema or pulses abnormal Neuro oriented x3, CN's II-XII intact bilaterally and no sensory deficits noted Neuro Narrative: No facial droop. Normal ambulation. Negative Romberg. Normal neurologic exam. Sensorium / Orientation: awake and alert Motor Exam: strength 5/5 throughout Psych mental status grossly normal Skin no rashes or lesions noted and no wounds MDM MDM MDM Narrative Medical decision making narrative: With no obvious etiology, and no evidence of an allergic reaction to clopidogrel or anything else, my recommendation here would be to discontinue his PORFIRIO inhibitor as that could be the cause until proven otherwise. The is concerned that it looked like his lip was droopy earlier but she showed me a picture and it was much more swollen and it was unilateral on the right lower lip only, which appeared to be simulating a facial droop which the patient does not have. I do not think the patient is having a stroke here and I reassured them. I monitored him here for an hour or 2, he had no worsening and actually thought it was further improved, his vital signs remained stable and normal throughout his stay, so he is stable for discharge home to discontinue his ramipril. He has an appointment with a branch operation evaluation manager in 2 days, at which point he can be reevaluated for a replacement medication if needed, but right now his blood pressure is 133/77 and he already took his pill for today so we really will only be without ramipril for 1.5 days at that point. Discharge Plan Triage Chief Complaint: General Illness ED Provider: Roc Bee Dx/Rx/DC Orders Clinical Impression: Angioedema due to angiotensin converting enzyme inhibitor (PORFIRIO-I) Instructions: ED Angioedema Prescriptions: Continued aspirin [Adult Low Dose Aspirin] 81 mg tablet,delayed release (DR/EC) 81 mg PO QDAY Qty: 90 3RF furosemide [Lasix] 40 mg tablet 40 mg PO DAILY Qty: 90 3RF cholecalciferol (vitamin D3) 1,000 UNIT tablet 1,000 unit PO DAILY multivitamin with folic acid 1 TABLET tablet 1 tab PO DAILY latanoprost 1 DROP bottle 1 drp EACH EYE QHS omega-3 fatty acids-fish oil 1 EACH capsule,delayed release(DR/EC) 1 ea PO DAILY vitamin B complex 1 EACH tablet 1 tab PO DAILY cinnamon bark 500 MG capsule 500 mg PO DAILY coenzyme [id number] E 1 EACH capsule 1 cap PO DAILY magnesium oxide 500 MG capsule 500 mg PO DAILY epinephrine 0.3 MG syringe 0.3 mg IM X1 clopidogrel 75 mg Tablet 75 mg PO DAILY nitroglycerin [Nitrostat] 0.4 mg tablet, sublingual 0.4 mg SUBLINGUAL Q5M PRN (Reason: chest pain) Qty: 25 3RF metoprolol tartrate 25 mg tablet 12.5 mg PO BID Qty: 90 3RF rosuvastatin 5 mg tablet 5 mg PO QHS Qty: 90 3RF levothyroxine 100 mcg tablet 100 mcg PO DAILY Qty: 90 3RF Discontinued ramipril 10 mg capsule 10 mg PO BID Qty: 180 3RF Primary Care Provider: Shira Borjas Referrals: Dax Rodriguez MD [Med Staff - Active Staff] - Keep Estefani appointment Shira Borjas DO [Primary Care Provider] - Disposition Disposition: Home, Self Care
== END 2021-09-18 12:05 | disposition home or self-care (01) ==
PROVIDERS: Emergency Provider Emergency Medicine; PCP Internal Medicine; Visit Provider Emergency Medicine
DX: T78.3XXA Angioneurotic edema, initial encounter (principal); T46.4X5A Adverse effect of angiotensin-converting-enzyme inhibitors, initial encounter; I34.1 Nonrheumatic mitral (valve) prolapse; I25.10 Atherosclerotic heart disease of native coronary artery without angina pectoris; I10 Essential (primary) hypertension; E78.5 Hyperlipidemia, unspecified; E03.9 Hypothyroidism, unspecified; Z79.82 Long term (current) use of aspirin; Z79.890 Hormone replacement therapy; Z79.899 Other long term (current) drug therapy; I25.2 Old myocardial infarction; Z85.46 Personal history of malignant neoplasm of prostate; Z87.891 Personal history of nicotine dependence
CPT/HCPCS: 99282

== ENCOUNTER → 2021-09-20 | Outpatient (CLI) | payer MEDICARE, OTHER, SELFPAY ==
--- NOTE | 2021-09-20 14:57 | ADUUE_ITS ---
Reason For Study: Post cardiac cath radial artery 09/14/2021 RIGHT Radial artery, prox, 0.29 x 0.29 cm, 60 cm/sec. Radial artery, mid, 0.32 x 0.32 cm, 55.6 cm/sec. Radial artery, distal, 0.29 x 0.30 cm, 49 cm/sec. Ulnar artery, distal, 0.19 x 0.20 cm, 78.6 cm/sec. Brachial artery, distal, 0.49 x 0.49 cm, 123.5 cm/sec. Ulnar, Radial and Cephalic veins are compressible. No evidence of pseudoaneurysm or occlusion noted. Preliminary to Rosanne RICKS. /US Art Duplex Unilat UP Extrem Interpretation Summary Right radial, ulnar, and brachial arteries patent with normal velocities and no evidence of pseudoaneurysm or fistula. Right radial, ulnar, cephalic veins patent and compressible. Ordering Physician: Rosanne Fernández Referring Physician: Shira Borjas M.D. Performed By: Sosa Fuentes RVT
== END | disposition home or self-care (01) ==
LOC: CVS 14:54
PROVIDERS: PCP Internal Medicine; Referring Provider Nurse Practitioner Gerontology; Visit Provider Nurse Practitioner Gerontology
DX: S55.101A Unspecified injury of radial artery at forearm level, right arm, initial encounter (principal); Z48.812 Encounter for surgical aftercare following surgery on the circulatory system
CPT/HCPCS: 93931

== ENCOUNTER → 2021-12-18 | Outpatient (CLI) | payer MEDICARE, OTHER, SELFPAY ==
[2021-12-18 08:38] LABS: Bacteria 0 SEEN /hpf (None Seen); Mucous, Urine 0 SEEN /hpf (<or=2+); Squamous Epithelial Cells - UA 0 SEEN /hpf (0-5)
[2021-12-18 09:51] LABS: Absolute Lymphocyte Count 2.06 X10^3/uL (0.83-4.51); Basophil# 0.06 X10^3/uL; Basophil% 0.8 % (0-1); Eosinophil# 0.46 X10^3/uL; Eosinophils% 6.1 % (0-5); Hematocrit 45.2 % (40-54); Hemoglobin 14.8 g/dL (13.0-16.5); Lymphocyte # 2.06 X10^3/ul (0.83-4.51); Lymphocyte % 27.4 % (19-41); Mean Corp Hgb Conc 32.7 g/dL (32-36); Mean Corpuscular Hgb 30.6 pg (27.0-32.0); Mean Corpuscular Volume 93.6 fL (80-94); Mean Platelet Vol. 10.7 fl (6.2-12.0); Monocyte# 0.87 X10^3/uL; Monocyte% 11.6 % (0-10); NRBC Flagged by Analyzer 0 % (0-5); Neutrophil # 4.04 X10^3/uL (2.7-7.7); Neutrophil % 53.8 % (47-70); Platelet Count 196 K/mm3 (150-450); RBC Distribution Width CV 14.3 % (11.6-14.6); RBC Distribution Width SD 49.4 fl (35.1-43.9); Red Blood Count 4.83 M/mm3 (4.6-6.2); White Blood Count 7.5 K/mm3 (4.4-11.0)
[2021-12-18 09:54] LABS: Color, Urine Yellow (Yellow); Glucose, Dipstick Normal (Normal); Ketone-Dipstick Negative (Negative); Leukocyte Esterase-Dipstick 25 /ul (Negative); Nitrite-Dipstick Negative (Negative); Occult Blood-Urine 25 /ul (Negative); Protein-Dipstick 30 mg/dl (Negative); Urine Bilirubin Dipstick Negative (Negative); Urine Clarity Sl. Cloudy (Clear); Urine Urobilinogen Normal (Normal)
[2021-12-18 10:03] LABS: Red Blood Cells-Urine 0-5 SEEN /hpf (0-5); White Blood Cells 0-5 SEEN /hpf (0-5)
[2021-12-18 10:19] LABS: Microalbumin,Random Urine 56.2 mg/L (NO RANGE EST.); Microalbumin:Creatinine Ratio 19.6 mg/g CRE (<30 mg/g CRE)
[2021-12-18 10:20] LABS: Vitamin D,25 Hydroxy 37.1 ng/mL
[2021-12-18 10:28] LABS: AST(SGOT) 25 U/L (15-37); Alanine Aminotransfer ALT/SGPT 27 U/L (16-61); Albumin, Serum 3.6 g/dL (3.2-5.0); Alkaline Phosphatase 49 U/L (45-117); Anion Gap 5 (5-15); BUN 20 mg/dL (7-18); BUN/Creat Ratio 16.3 RATIO (10-20); Calcium,Total 8.9 mg/dL (8.5-10.1); Chloride 109 mmol/L (98-107); Cholesterol 131 mg/dL (200); Creatinine, Serum 1.23 mg/dL (0.70-1.30); EST Glomerular Filtration Rate 60 mL/min (>60); Est Glom Filt Rate - Afr Amer 73 mL/min (>60); Globulin 3.6 g/dL (2.2-4.2); Glucose 94 mg/dL (74-106); High Density Lipoprotein 41 mg/dL; Potassium 4.2 mmol/L (3.5-5.1); Protein, Total 7.2 g/dL (6.4-8.2); Sodium Level 140 mmol/L (136-145); Triglycerides 113 mg/dL; Very Low Density Lipoprotein 23 mg/dL (5-40)
== END | disposition home or self-care (01) ==
LOC: LAB 08:29
PROVIDERS: PCP Internal Medicine; Referring Provider Internal Medicine; Visit Provider Internal Medicine
DX: E03.9 Hypothyroidism, unspecified (principal); E78.00 Pure hypercholesterolemia, unspecified; I10 Essential (primary) hypertension
CPT/HCPCS: 36415; 80053; 80061; 81001; 82043; 82306; 82570; 84443; 85025

== ENCOUNTER 2022-05-03 08:57 | Observation (INO) | payer MEDICARE, OTHER, SELFPAY ==
[2022-05-03] VITALS (11 sets, daily range): BP systolic 98–165; BP diastolic 63–97; PULSE 56–156; RESP 16–18; TEMP 36.1–36.7; O2SAT 96–99; BMI 25.7; BMI 25.0
--- NOTE | 2022-05-03 09:24 | CT_ITS ---
STUDY: CTA CHEST, ABDOMEN T PELVIS WITHOUT CONTRAST REASON FOR EXAM: Male, 77 years old. Abdominal pain -- r/o aneursym or dissection RADIATION DOSAGE (If Supplied By Facility): CTDIvol = ( 14.93 ) mGy, DLP = ( 869.43 ) mGycm TECHNIQUE: Transaxial imaging was performed without the administration of intravenous contrast material. Individualized dose optimization techniques were used for this CT. COMPARISON: No relevant priors. FINDINGS: CHEST The lungs are normal. There is no demonstrated pleural abnormality. Sternal cerclage wires and vascular clips are present from a prior sternotomy and coronary artery bypass graft procedure (CABG). There are calcifications of the coronary arteries. There are multiple small lymph nodes within the mediastinum, which are normal in size and morphology most compatible with reactive lymph hyperplasia. Normal hilar regions. Normal unenhanced pulmonary arteries. Normal aorta arch and descending thoracic aorta. Normal osseous structures. There is no demonstrated abnormality of the visualized upper abdomen. ABDOMEN The visualized lung bases are unremarkable. The visualized portions of the heart are within normal limits. Normal liver. Normal gallbladder and extrahepatic biliary system. Normal spleen. Normal pancreas. Normal bilateral adrenal glands. Normal right kidney. Normal left kidney. There is a moderate-sized hiatal hernia. Normal small intestine. There are multiple colonic diverticula consistent with diverticulosis. The appendix is visualized and appears normal. There is diffuse atherosclerotic calcification of the abdominal aorta, without a demonstrated aneurysm. Normal inferior vena cava. Normal retroperitoneum. Normal abdominal wall. There are diffuse degenerative changes of the visualized lumbar spine. PELVIS Normal urinary bladder. There is no pelvic fluid. There is no pelvic lymphadenopathy or mass lesion. There is diffuse atherosclerotic calcification of the pelvic arteries. CT/CTA Chst, Abd, Pel W and/or WO IMPRESSION: No evidence of aneurysmal dilatation of the thoracic or abdominal aorta. Atherosclerotic plaque formation throughout. No evidence of dissection. Moderate sized hiatal hernia. Electronically Signed: Babak Samuels MD at 11:00 EST ,
[2022-05-03 09:38] LABS: Hematocrit 50.4 % (40-54); Hemoglobin 16.4 g/dL (13.0-16.5); Mean Corp Hgb Conc 32.5 g/dL (32-36); Mean Corpuscular Hgb 30.5 pg (27.0-32.0); Mean Corpuscular Volume 93.7 fL (80-94); Mean Platelet Vol. 10.7 fl (6.2-12.0); Platelet Count 244 K/mm3 (150-450); RBC Distribution Width CV 14.6 % (11.6-14.6); RBC Distribution Width SD 50.5 fl (35.1-43.9); Red Blood Count 5.38 M/mm3 (4.6-6.2); White Blood Count 10.3 K/mm3 (4.4-11.0)
[2022-05-03 09:43] LABS: International Normalized Ratio 1.1; Prothrombin Time (Protime)PT. 13.5 SECONDS (11.7-14.9)
[2022-05-03] MEDS: 0.9% Normal Saline 1,000 ML 100 ML IV ×3 (09:43→23:00)
[2022-05-03] MEDS: Metoprolol Tartrate 5 MG/5 ML Vial IV (09:43)
[2022-05-03 09:44] LABS: Partial Thromboplast Time 25.9 Seconds (24.1-36.2)
[2022-05-03 09:52] LABS: AST(SGOT) 28 U/L (15-37); Alanine Aminotransfer ALT/SGPT 35 U/L (16-61); Albumin, Serum 3.7 g/dL (3.2-5.0); Alkaline Phosphatase 50 U/L (45-117); Anion Gap 10 (5-15); BUN 21 mg/dL (7-18); BUN/Creat Ratio 15.7 RATIO (10-20); Calcium,Total 9.6 mg/dL (8.5-10.1); Chloride 106 mmol/L (98-107); Creatinine, Serum 1.34 mg/dL (0.70-1.30); EST Glomerular Filtration Rate 55 mL/min (>60); Est Glom Filt Rate - Afr Amer 66 mL/min (>60); Estimated Creatinine Clearance 46.15 ml/min; Globulin 3.8 g/dL (2.2-4.2); Glucose 125 mg/dL (74-106); Lipase 143 U/L (73-393); Potassium 3.8 mmol/L (3.5-5.1); Protein, Total 7.5 g/dL (6.4-8.2); Sodium Level 143 mmol/L (136-145); Troponin-I HS (w/2H Reflex) 13 pg/mL (3.0-78.0)
--- NOTE | 2022-05-03 10:16 | EX.ED.DYSGE1 ---
HPI History of Present Illness Chief Complaint: Palpitations Informant: patient and spouse/S.O. Narrative Narrative: Presenting with abdominal pain and not feeling well since this morning. Per spouse appeared pale and he was reported not feeling well. He has history of three-vessel CABG in 1995, locally followed by cardiology here Dr. Rodriguez. He is followed by [facility] cardiology he had a subsequent stent this past September due to exertional dyspnea. He has a mitral valve regurgitation seen at the same time. Symptomatically was improving therefore plan for this is serial echocardiograms with monitoring. Per spouse has had his aorta evaluated in the past however none recently has not been told of any aneurysms. Patient presenting noting atrial flutter with tachycardia concerns, denies any palpitations. He currently does take beta he asked for it and Plavix no other anticoagulants. He did not take his blood pressure this morning per spouse due to holding it due to his appearance. He takes metoprolol 12.5 g twice a day. 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 Elevated PSA Essential hypertension Hyperlipidemia Hypothyroidism Nonrheumatic mitral (valve) insufficiency Nonrheumatic mitral (valve) prolapse Old inferolateral myocardial infarction Prostate cancer Urgency-frequency syndrome Home Medications cholecalciferol (vitamin D3) 25 mcg (1,000 unit) tablet 1,000 unit PO DAILY SUPPLEMENT 01/14/14 [History Last Taken 05/02/22] multivitamin with folic acid 400 mcg tablet 1 tab PO DAILY SUPPLEMENT 01/14/14 [History Last Taken 05/02/22] latanoprost 0.005 % eye drops 1 drp EACH EYE Q EYES 01/03/17 [History Last Taken 05/02/22] omega-3 fatty acids-fish oil 684 mg-1,200 mg capsule,delayed release 1 ea PO DAILY SUPPLEMENT 01/03/17 [History Last Taken 05/02/22] cinnamon bark 500 mg capsule 500 mg PO DAILY 10/07/18 [History Last Taken 05/02/22] coenzyme [id number] E 100 mg-5 unit capsule 1 cap PO DAILY 10/07/18 [History Last Taken 05/02/22] magnesium oxide 500 mg capsule 500 mg PO DAILY 10/07/18 [History Last Taken 05/02/22] vitamin B complex 1 tab PO DAILY 10/07/18 [History Last Taken 05/02/22] nitroglycerin 0.4 mg sublingual tablet (Nitrostat) 0.4 mg sublingual Q5M PRN chest pain #25 tabs 12/07/19 [Rx Last Taken Unknown] aspirin 81 mg tablet,delayed release (Adult Low Dose Aspirin) 81 mg PO QDAY #90 tabs 03/15/21 [Rx Last Taken 05/02/22] furosemide 40 mg tablet (Lasix) 40 mg PO DAILY #90 tabs 03/15/21 [Rx Last Taken 05/02/22] metoprolol tartrate 25 mg tablet 12.5 mg PO BID BP #90 tabs 06/19/21 [Rx Last Taken 05/02/22] rosuvastatin 5 mg tablet 5 mg PO QHS cholesterol #90 tabs 08/20/21 [Rx Last Taken 05/02/22] levothyroxine 100 mcg tablet 100 mcg PO DAILY THYROID #90 tabs 09/06/21 [Rx Last Taken 05/02/22] clopidogrel 75 mg tablet 75 mg PO DAILY 09/18/21 [History Last Taken 05/02/22] epinephrine 0.3 mg/0.3 mL injection, auto-injector 0.3 mg IM X1 PRN Allergic Reaction 09/20/21 [History Last Taken Unknown] amlodipine 2.5 mg tablet 2.5 mg PO DAILY 12/20/21 [History Last Taken 05/02/22] Allergy/AdvReac Type Severity Reaction Status Date / Time bee venom protein (honey bee) Allergy Unknown hives/anaph Verified 05/03/22 09:01 ylaxis ramipril Allergy Angioedema Verified 05/03/22 09:01 Family History Father , of [place]'s disease [place]'s disease Mother , Age 60 of [place] CAD (coronary artery disease) Myocardial infarction Brother CAD (coronary artery disease) history of cabg Brother CAD (coronary artery disease) Stented coronary artery Diabetes Sister CAD (coronary artery disease) Myocardial infarction Hypertension Surgical History H/O coronary artery bypass surgery (11/1994) H/O prostatectomy History of coronary artery stent placement (09/14/21) History of left heart catheterization (04/30/21) Social History Smoking Status: Former smoker alcohol intake: current alcohol intake frequency: other Alcohol type: beer and wine caffeine: Yes Type: coffee Number of servings: 3 ROS ROS ED Constitutional Constitutional ED: Denies chills, fever(s) or sweats Eyes Eyes: Denies change in vision ENT ENT ED: Denies dysphagia or sore throat Cardiovascular Cardiovascular: Denies chest pain, leg edema, palpitations or racing heartbeat Respiratory/Chest Respiratory/Chest: Denies cough, dyspnea or dyspnea on exertion Gastrointestinal Gastrointestinal: Reports abdominal pain; Denies diarrhea, nausea or vomiting Genitourinary Genitourinary ED: Denies dysuria, hematuria or urinary frequency Musculoskeletal Musculoskeletal: Denies back pain, extremity pain or neck pain Integumentary Denies rash or wounds Neurologic Neurologic: Denies headache(s), paresthesias or weakness EXAM Physical Exam Const Vital Signs: 05/03/22 08:58 05/03/22 09:01 05/03/22 09:01 Temperature 96.9 F L Temperature Source Temporal Pulse Rate 156 H 152 H Respiratory Rate 18 18 Respiratory Effort Normal Blood Pressure 138/87 H 117/97 H Blood Pressure Mean 104 103 Pulse Ox 98 98 Oxygen Delivery Method Room Air Room Air 05/03/22 10:01 05/03/22 11:00 Temperature 97.8 F Temperature Source Temporal Pulse Rate 90 89 Respiratory Rate 18 16 Respiratory Effort Blood Pressure 108/76 98/76 Blood Pressure Mean 86 83 Pulse Ox 99 99 Oxygen Delivery Method Room Air Room Air Positive well nourished and well developed General Appearance ED: well developed and NAD HEENT Reports moist mucous membranes normocephalic and atraumatic Eyes PERRL, EOMs intact bilaterally and conjunctivae normal General Eye ED: Yes normal appearance of both eyes Neck no lymphadenopathy and supple General: Negative for tenderness Chest Wall Chest: Negative for tenderness Resp normal respiratory effort and normal air movement Effort and Inspection: symmetric chest movement; Negative for respiratory distress Cardio regular rate, regular rhythm and S1 normal heart sound Rate: tachycardic Peripheral Pulses: pulses 2+ throughout GI normal to inspection, nondistended, normoactive bowel sounds and non-tender Palpation: Negative for guarding or rebound tenderness present Back/Spine no CVA tenderness and no thoracic nor lumbar tenderness Extremity normal to inspection General Extremety ED: Negative for edema or tenderness General Extremity: Negative for edema Neuro oriented x3 and no sensory deficits noted Sensorium / Orientation: awake and alert Skin no rashes or lesions noted and no wounds MDM MDM MDM Narrative Medical decision making narrative: Interventions / MDM: Differential diagnosis: Atrial flutter/atrial fibrillation, aortic aneurysm, aortic dissection Diagnosis considered but do not suspect: N/A My EKG interpretation: EKG #1 at 0904: A flutter 2-1 rate of 113, no ST or T wave changes. EKG #2 at 1006: Atrial fibrillation rate controlled at 80, no ST or T wave changes. ED KG #3 at 1131: Sinus bradycardia rate of 57. Imaging independently reviewed and interpreted by myself: CT angiogram chest abdomen pelvis per radiology no acute process. External documents reviewed: N/A Test considered but not ordered:N/A ED course: Patient arrived a flutter on EKG he is given Lopressor x1 heart rate in the 80s repeat EKG still A-fib rate controlled. With patient's reported history abdominal pain rule out dissection scans obtained of CT chest abdomen pelvis which was negative. Labs were stable creatinine 1.34 electrolytes with potassium 3.8. Initial troponin negative. Lipase and LFTs are normal. Heart rate maintained in the 80s initial order for his home dose of metoprolol 12.5 mg. Re-evaluation: stable, on the monitor appeared to have converted heart rate in the 50s, repeat EKG confirms this. His home dose metoprolol held secondary heart rate already in the 50s was given IV Lopressor.CHADS2 Vascor is a 6. Discussed he will be likely recommended anticoagulations. concerned with his cardiac history would like him observed in the hospital. Do feel this is reasonable with his cardiac history. I spoke with hospitalist Dr. Lemus for observations admission. He request I speak with cardiology on-call, spoke with Dr. Paula, who is updated. Disposition discussed with patient/family/significant other: Patient and significant other Case discussed with consulting clinician: Cardiology Dr. Paula, hospitalist Dr. Lemus. Lab Data Attestation: I reviewed the patient's lab results. Labs: Laboratory Results - last 24 hr 05/03/22 05/03/22 05/03/22 09:05 09:05 09:05 WBC 10.3 RBC 5.38 Hgb 16.4 Hct 50.4 MCV 93.7 MCH 30.5 MCHC 32.5 RDW Std Deviation 50.5 H RDW Coeff of Darian 14.6 Plt Count 244 MPV 10.7 PT 13.5 INR 1.1 APTT 25.9 Sodium 143 Potassium 3.8 Chloride 106 Carbon Dioxide 27.0 Anion Gap 10 BUN 21 H Creatinine 1.34 H Estim Creat Clear Calc 46.15 Est GFR (MDRD) Af Amer 66 Est GFR (MDRD) Non-Af 55 L BUN/Creatinine Ratio 15.7 Glucose 125 H Calcium 9.6 Total Bilirubin 1.00 AST 28 ALT 35 Alkaline Phosphatase 50 Troponin I High Sens 13 Total Protein 7.5 Albumin 3.7 Globulin 3.8 Albumin/Globulin Ratio 1.0 Lipase 143 Radiography Diagnostic Testing: Clinical Impression(s) from Imaging Studies Chest/Abdomen/Pelvis CTA 05/03/22 09:24 IMPRESSION: No evidence of aneurysmal dilatation of the thoracic or abdominal aorta. Atherosclerotic plaque formation throughout. No evidence of dissection. Moderate sized hiatal hernia. Electronically Signed: Babak Samuels MD at 11:00 EST , Discharge Plan Dx/Rx/DC Orders Clinical Impression: Atrial fibrillation, new onset, Essential hypertension, Nonrheumatic mitral (valve) insufficiency, History of coronary artery stent placement Disposition Disposition: Acute Care Hospital [facility] Discharge Date/Time: 05/03/22 12:27
[2022-05-03 11:30] LABS: Reflex Troponin-HS? (from REC) Y
--- NOTE | 2022-05-03 11:49 | HP.PCM.HOS_ITS ---
HPI - General General Date of Admission: 05/03/22 Date of Service: 05/03/22 Chief Complaint: Pulmonary discomfort HPI Narrative СЕРГЕЙ ALMEIDA, is a 77 M with abdominal discomfort. Patient has significant past cardiac history including coronary artery disease with previous CABG and recent PCI with LORENZA to disease in the ostium of the left main trunk in December 2021 at [facility]. Patient woke up on the morning of his admission with some discomfort in the mid abdomen. He did experience diaphoresis and felt patient was pale. Patient was brought to the emergency department as a result found to be in A-fib with RVR apparently new. Did receive Lopressor 12.5x1 converted to sinus rhythm given his past significant cardiac history decision was made to admit patient [facility] Medical History Atherosclerosis of coronary artery bypass graft of [place] heart without angina pectoris Atherosclerotic heart disease of [place] coronary artery without angina pectoris Elevated PSA Essential hypertension Hyperlipidemia Hypothyroidism Nonrheumatic mitral (valve) insufficiency Nonrheumatic mitral (valve) prolapse Old inferolateral myocardial infarction Prostate cancer Urgency-frequency syndrome Home Medications cholecalciferol (vitamin D3) 25 mcg (1,000 unit) tablet 1,000 unit PO DAILY SUP PLEMENT 01/14/14 [History Last Taken 05/02/22] multivitamin with folic acid 400 mcg tablet 1 tab PO DAILY SUPPLEMENT 01/14/14 [History Last Taken 05/02/22] latanoprost 0.005 % eye drops 1 drp EACH EYE QHS EYES 01/03/17 [History Last Taken 05/02/22] omega-3 fatty acids-fish oil 684 mg-1,200 mg capsule,delayed release 1 ea PO DAILY SUPPLEMENT 01/03/17 [History Last Taken 05/02/22] cinnamon bark 500 mg capsule 500 mg PO DAILY 10/07/18 [History Last Taken 05/02/22] coenzyme [id number] E 100 mg-5 unit capsule 1 cap PO DAILY 10/07/18 [History Last Taken 05/02/22] magnesium oxide 500 mg capsule 500 mg PO DAILY 10/07/18 [History Last Taken 05/02/22] vitamin B complex 1 tab PO DAILY 10/07/18 [History Last Taken 05/02/22] nitroglycerin 0.4 mg sublingual tablet (Nitrostat) 0.4 mg sublingual Q5M PRN chest pain #25 tabs 12/07/19 [Rx Last Taken Unknown] aspirin 81 mg tablet,delayed release (Adult Low Dose Aspirin) 81 mg PO QDAY #90 tabs 03/15/21 [Rx Last Taken 05/02/22] furosemide 40 mg tablet (Lasix) 40 mg PO DAILY #90 tabs 03/15/21 [Rx Last Taken 05/02/22] metoprolol tartrate 25 mg tablet 12.5 mg PO BID BP #90 tabs 06/19/21 [Rx Last Taken 05/02/22] rosuvastatin 5 mg tablet 5 mg PO QHS cholesterol #90 tabs 08/20/21 [Rx Last Taken 05/02/22] levothyroxine 100 mcg tablet 100 mcg PO DAILY THYROID #90 tabs 09/06/21 [Rx Last Taken 05/02/22] clopidogrel 75 mg tablet 75 mg PO DAILY 09/18/21 [History Last Taken 05/02/22] epinephrine 0.3 mg/0.3 mL injection, auto-injector 0.3 mg IM X1 PRN Allergic Reaction 09/20/21 [History Last Taken Unknown] amlodipine 2.5 mg tablet 2.5 mg PO DAILY 12/20/21 [History Last Taken 05/02/22] Allergy/AdvReac Type Severity Reaction Status Date / Time bee venom protein (honey bee) Allergy Unknown hives/anaph Verified 05/03/22 09:01 ylaxis ramipril Allergy Angioedema Verified 05/03/22 09:01 Family History Father , of [place]'s disease Rohini's disease Mother , Age 60 of [place] CAD (coronary artery disease) Myocardial infarction Brother CAD (coronary artery disease) history of cabg Brother CAD (coronary artery disease) Stented coronary artery Diabetes Sister CAD (coronary artery disease) Myocardial infarction Hypertension Surgical History H/O coronary artery bypass surgery (11/1994) H/O prostatectomy History of coronary artery stent placement (09/14/21) History of left heart catheterization (04/30/21) Social History Smoking Status: Former smoker alcohol intake: current alcohol intake frequency: other Alcohol type: beer and wine caffeine: Yes Type: coffee Number of servings: 3 ROS ROS Narrative GENERAL: denies fever, chills, night sweats, weight loss, anorexia HEENT: denies headache, sinus congestion, or drainage, dysphagia RESPIRATORY: denies cough, sputum production, shortness of breath, CARDIAC: denies chest pain, palpitations, orthopnea, PND GASTROINTESTINAL: abdominal pain, nausea, denies vomiting, melena, GENITOURINARY: denies dysuria, urgency, frequency, heamaturia EXTREMITY: denies swelling MUSCULOSKELETAL: denies current joint pain or tenderness NEUROLOGIC: denies focal numbness, weakness, tingling HEMATOLOGIC: denies easy bruising and/or hemorrhage INTEGUMENT: denies rashes PSYCHIATRIC: denies suicidal or homicidal ideation Vital Signs Vital Signs Vital Signs: 05/03/22 08:58 05/03/22 09:01 05/03/22 09:01 Temperature 96.9 F L Temperature Source Temporal Pulse Rate 156 H 152 H Respiratory Rate 18 18 Respiratory Effort Normal Blood Pressure 138/87 H 117/97 H Blood Pressure Mean 104 103 Pulse Ox 98 98 Oxygen Delivery Method Room Air Room Air 05/03/22 10:01 05/03/22 11:00 Temperature 97.8 F Temperature Source Temporal Pulse Rate 90 89 Respiratory Rate 18 16 Respiratory Effort Blood Pressure 108/76 98/76 Blood Pressure Mean 86 83 Pulse Ox 99 99 Oxygen Delivery Method Room Air Room Air Weight Weight: 81.2 kg Body Mass Index (BMI) 25.7 Physical Exam Narrative GENERAL: cooperative HEENT: Atraumatic; normocephalic EYES; Anicteric, Normal Conjunctiva NECK; supple, normal thyroid, RESPIRATORY: Diminished to auscultation CARDIOVASCULAR: Regular S1 S2, GI: soft, normoactive bowel sounds, : No Renal angle tenderness; EXTREMITIES: No edema, no clubbing, MUSCULOSKELETAL: no muscle wasting NEURO: Awake; no lateralizing signs. SKIN: No Rash PSYCH; Flat affect Results Lab / Micro Data Result Diagrams: 05/03/22 09:05 05/03/22 09:05 Labs: Laboratory Results - last 24 hr 05/03/22 09:05: WBC 10.3, RBC 5.38, Hgb 16.4, Hct 50.4, MCV 93.7, MCH 30.5, MCHC 32.5, RDW Std Deviation 50.5 H, RDW Coeff of [place]arian 14.6, Plt Count 244, MPV 10.7 05/03/22 09:05: PT 13.5, INR 1.1, APTT 25.9 05/03/22 09:05: Sodium 143, Potassium 3.8, Chloride 106, Carbon Dioxide 27.0, Anion Gap 10, BUN 21 H, Creatinine 1.34 H, Estim Creat Clear Calc 46.15, Est GFR (MDRD) Af Amer 66, Est GFR (MDRD) Non-Af 55 L, BUN/Creatinine Ratio 15.7, Glucose 125 H, Calcium 9.6, Total Bilirubin 1.00, AST 28, ALT 35, Alkaline Phosphatase 50, Troponin I High Sens 13, Total Protein 7.5, Albumin 3.7, Globulin 3.8, Albumin/Globulin Ratio 1.0, Lipase 143 Radiology Impression Chest/Abdomen/Pelvis CTA 05/03/22 09:24 IMPRESSION: No evidence of aneurysmal dilatation of the thoracic or abdominal aorta. Atherosclerotic plaque formation throughout. No evidence of dissection. Moderate sized hiatal hernia. Electronically Signed: Babak Samuels MD at 11:00 EST , Assessment & Plan Assessment/Plan (1) Atrial fibrillation, new onset: PLAN: Plan Patient is a 77-year-old gentleman admitted with abdominal discomfort found to be in A-fib with RVR New onset A-fib ? Patient has been admitted to monitored bed for subsequent evaluation. As part of his management ordered TSH serial cardiac enzymes 2D echo. Patient converted back to sinus rhythm prior to being admitted. 2D echo will be ordered as part of his evaluation. Patient was also started on systemic anticoagulation Eliquis 2.5 mg p.o. twice daily 2. Coronary artery disease ? With previous CABG and recent PCI with LORENZA to severe disease in the ostium of the left main trunk in December 2021 at [facility] [place] 3. Dyslipidemia -Patient is on statin therapy, continued at home dose 4. Hypertension - Blood pressure controlled, home medications continued with dose adjustment as needed 5. Hypothyroidism - Patient is on levothyroxine home dose continued. 6. History of prostate CA ? Currently remission 7. DVT prophylaxis ? Placed on Eliquis Time spent in the patient's overall evaluation,decision-making process, review of diagnostic data, adjustment of management, discussion with other providers, nursing nursing and ancillary staff involved in patient's care documentation, 75 minutes Advance planning; did discuss with the patient and family regarding advanced directives as well as CODE STATUS. Did explain the various scenarios involved ( FULL CODE, DNR CCA, DNR CCA with no intubation, and DNR CC and what each meant) patient elected to remain full code with CPR and intubation if needed. Order w as placed. Time spent on discussion 18 minutes. Charges/Coding Visit Charges Inpatient E&M: 80777 Init Hosp L3 Procedures Hospitalists Procedures: 04440 Advncd Care Plan 30 Min
--- NOTE | 2022-05-03 12:38 | ECHOD_ITS ---
Reason For Study: AFIB Procedure This was a 2D Doppler, Color Flow transthoracic echocardiogram. Exam performed portable in patient room. Left Ventricle Normal LV size. Mild concentric left ventricular hypertrophy. The left ventricular ejection fraction is 60 %. Stage 3 diastolic dysfunction. Right Ventricle Normal right ventricle. Atria The left atrium is severely enlarged. The right atrium is moderately enlarged. Mitral Valve Mild mitral valve prolapse, posterior leaflet. Moderately severe (3+) anteriorly directed mitral valve insufficiency. Tricuspid Valve Mild to moderate (1-2+) tricuspid valve insufficiency. Pulmonary artery systolic pressure is 58 mmHg. Aortic Valve Trisinus/trileaflet aortic valve. Mild (1+) aortic valve insufficiency. Pulmonic Valve Moderate (2+) pulmonic valve insufficiency. Great Vessels Normal sized aortic root. Pericardium/Pleural No pericardial effusion. MMode/2D Measurements & Calculations LVIDd: 5.3 cm IVSd: 1.2 cm LVOT diam: 2.1 cm LVIDs: 2.7 cm LVPWd: 0.85 cm LVOT area: 3.4 cm2 RVDd: 3.7 cm FS: 49.4 % Ao root diam: 2.7 cm LAV(MOD-bp): 106.0 ml LVAd ap4: 34.8 cm2 LAV(MOD-bp) Indexed: 53.9 ml/m2 LVLd ap4: 7.4 cm LAV(MOD-sp2): 104.0 ml EDV(MOD-sp4): 130.3 ml LAV(MOD-sp4): 99.6 ml EDV(sp4-el): 138.5 ml LVAs ap4: 19.8 cm2 LVLs ap4: 6.4 cm ESV(MOD-sp4): 50.3 ml ESV(sp4-el): 52.5 ml EF(MOD-sp4): 61.4 % EF(sp4-el): 62.1 % LVAd ap2: 30.6 cm2 SV(MOD-sp4): 80.0 ml SV(MOD-sp2): 62.3 ml LVLd ap2: 7.3 cm EDV(MOD-sp2): 103.3 ml EDV(sp2-el): 108.6 ml LVAs ap2: 17.3 cm2 LVLs ap2: 5.9 cm ESV(MOD-sp2): 40.9 ml ESV(sp2-el): 43.4 ml EF(MOD-sp2): 60.3 % SV(sp4-el): 86.1 ml LA dimension(2D): 5.3 cm LA A4 area: 28.9 cm2 RA A4 area: 28.2 cm2 Time Measurements MV dec time: 0.22 sec Doppler Measurements & Calculations MV E max bill: 129.7 cm/sec Lat Peak E' Bill: 10.4 cm/sec Med Peak E' Bill: 6.0 cm/sec MV A max bill: 45.5 cm/sec E/E' lat: 12.5 E/E' med: 21.8 MV E/A: 2.9 MV V2 max: 128.3 cm/sec Ao V2 max: 122.4 cm/sec MV max P.6 mmHg MV dec slope: 581.8 cm/sec2 Ao max P.0 mmHg MV V2 mean: 57.4 cm/sec Ao V2 mean: 68.9 cm/sec MV mean P.8 mmHg Ao mean P.5 mmHg MV V2 VTI: 39.8 cm Ao V2 VTI: 24.0 cm AV (velocity ratio): 0.75 MVA(VTI): 1.5 cm2 RAFY(I,D): 2.6 cm2 RAFY(V,D): 2.3 cm2 AI max bill: 436.4 cm/sec LV V1 max: 82.2 cm/sec SV(LVOT): 61.3 ml AI max P.2 mmHg LV V1 max P.7 mmHg AI dec slope: 241.0 cm/sec2 LV V1 mean P.3 mmHg AI P1/2t: 530.3 msec LV V1 mean: 52.0 cm/sec LV V1 VTI: 17.9 cm PA V2 max: 93.3 cm/sec PI dec slope: 268.9 cm/sec2 TR max bill: 344.9 cm/sec TR max P.6 mmHg ECHO/Echo Complete Interpretation Summary Normal LV size. Mild concentric left ventricular hypertrophy. The left ventricular ejection fraction is 60 %. Stage 3 diastolic dysfunction. The left atrium is severely enlarged. The right atrium is moderately enlarged. Mild mitral valve prolapse, posterior leaflet Moderately severe (3+) anteriorly directed mitral valve insufficiency. Mild to moderate (1-2+) tricuspid valve insufficiency. Pulmonary artery systolic pressure is 58 mmHg. Mild (1+) aortic valve insufficiency. Moderate (2+) pulmonic valve insufficiency. Ordering Physician: Jose Lemus Referring Physician: Shira Borjas M.D. Performed By: Kelsy Chapman RCS
[2022-05-03 12:45] LABS: Troponin-I HS 13 pg/mL (3.0-78.0)
[2022-05-03 13:24] LABS: Thyroid Stim Hormone (TSH) 1.95 uIU/mL (0.358-3.74)
--- NOTE | 2022-05-03 14:41 | CON.PCM.CA_ITS ---
Assessment & Plan Assessment/Plan (1) Atrial fibrillation, new onset: PLAN: Converted to normal sinus rhythm spontaneously. Continue beta-blockers. Agree with Eliquis. Discussed chronic oral anticoagulation with the patient and his . Risks and benefits explained. They understand and wish to commence anticoagulation. His Eliquis dose should be 5 mg twice daily. Stop aspirin. (2) Coronary artery disease: PLAN: History of CABG. Percutaneous intervention with drug-eluting stent at the [facility] in September of last year. Aspirin as we are starting him on Eliquis for his atrial fibrillation. (3) Mitral regurgitation: PLAN: Appears moderate to severe on surface echocardiogram. Recommend follow-up with a D[facility]Y as an outpatient to further evaluate MR. For afterload reduction. Please note that the patient is allergic to PORFIRIO inhibitors with history of angioedema. Increase amlodipine to 5 mg twice daily (4) Pulmonary hypertension: PLAN: Most likely secondary to mitral regurgitation. See #3 above. (5) Hypertension: PLAN: Increase amlodipine to 5 mg once daily. (6) Dyslipidemia: PLAN: On atorvastatin. HPI Consult Data Date of Consult: 05/03/22 HPI Narrative HPI Narrative: The patient has history of coronary artery disease status post CABG. He also has history of mitral regurgitation. He presented to the emergency room with complaints of abdominal discomfort, nausea and vomiting. He was noted to be in atrial fibrillation with rapid ventricular response. Apparently patient converted on his own to normal sinus rhythm in the emergency room. Presently patient is asymptomatic. Denies any chest pains. Denies any shortness of breath either at rest or with exertion. No orthopnea. No PND. Denies any ankle edema. [facility] Medical History Atherosclerosis of coronary artery bypass graft of [place] heart without angina pectoris Atherosclerotic heart disease of [place] coronary artery without angina pectoris Elevated PSA Essential hypertension Hyperlipidemia Hypothyroidism Nonrheumatic mitral (valve) insufficiency Nonrheumatic mitral (valve) prolapse Old inferolateral myocardial infarction Prostate cancer Urgency-frequency syndrome Home Medications cholecalciferol (vitamin D3) 25 mcg (1,000 unit) tablet 1,000 unit PO DAILY SUPPLEMENT 01/14/14 [History Last Taken 05/02/22] multivitamin with folic acid 400 mcg tablet 1 tab PO DAILY SUPPLEMENT 01/14/14 [History Last Taken 05/02/22] latanoprost 0.005 % eye drops 1 drp EACH EYE QHS EYES 01/03/17 [History Last Taken 05/02/22] omega-3 fatty acids-fish oil 684 mg-1,200 mg capsule,delayed release 1 ea PO DAILY SUPPLEMENT 01/03/17 [History Last Taken 05/02/22] cinnamon bark 500 mg capsule 500 mg PO DAILY 10/07/18 [History Last Taken 05/02/22] coenzyme [id number] E 100 mg-5 unit capsule 1 cap PO DAILY 10/07/18 [History Last Taken 05/02/22] magnesium oxide 500 mg capsule 500 mg PO DAILY 10/07/18 [History Last Taken ] vitamin B complex 1 tab PO DAILY 10/07/18 [History Last Taken 05/02/22] nitroglycerin 0.4 mg sublingual tablet (Nitrostat) 0.4 mg sublingual Q5M PRN chest pain #25 tabs 12/07/19 [Rx Last Taken Unknown] aspirin 81 mg tablet,delayed release (Adult Low Dose Aspirin) 81 mg PO QDAY #90 tabs 03/15/21 [Rx Last Taken 05/02/22] furosemide 40 mg tablet (Lasix) 40 mg PO DAILY #90 tabs 03/15/21 [Rx Last Taken 05/02/22] metoprolol tartrate 25 mg tablet 12.5 mg PO BID BP #90 tabs 06/19/21 [Rx Last Taken 05/02/22] rosuvastatin 5 mg tablet 5 mg PO QHS cholesterol #90 tabs 08/20/21 [Rx Last Taken 05/02/22] levothyroxine 100 mcg tablet 100 mcg PO DAILY THYROID #90 tabs 09/06/21 [Rx Last Taken 05/02/22] clopidogrel 75 mg tablet 75 mg PO DAILY 09/18/21 [History Last Taken 05/02/22] epinephrine 0.3 mg/0.3 mL injection, auto-injector 0.3 mg IM X1 PRN Allergic Reaction 09/20/21 [History Last Taken Unknown] amlodipine 2.5 mg tablet 2.5 mg PO DAILY 12/20/21 [History Last Taken 05/02/22] Allergy/AdvReac Type Severity Reaction Status Date / Time bee venom protein (honey bee) Allergy Unknown hives/anaph Verified 05/03/22 09:01 ylaxis ramipril Allergy Angioedema Verified 05/03/22 09:01 Family History Father , of [place]'s disease [place]'s disease Mother , Age 60 of [place] CAD (coronary artery disease) Myocardial infarction Brother CAD (coronary artery disease) history of cabg Brother CAD (coronary artery disease) Stented coronary artery Diabetes Sister CAD (coronary artery disease) Myocardial infarction Hypertension Surgical History H/O coronary artery bypass surgery (11/1994) H/O prostatectomy History of coronary artery stent placement (09/14/21) History of left heart catheterization (04/30/21) Social History Smoking Status: Former smoker alcohol intake: current alcohol intake frequency: other Alcohol type: beer and wine caffeine: Yes Type: coffee Number of servings: 3 Physical Exam Narrative Comfortable. No apparent distress. Heart sounds 1 and 2 noted. 4/6 systolic murmur at apex. Chest clear to auscultation bilaterally. Abdominal soft bowel sounds positive. Alert oriented x3. No ankle edema noted. Risk Stratification Risk Stratification Applicable: No Objective Data Vital Signs: Vital Signs Temp Pulse Resp BP Pulse Ox O2 Del Method 97 F L 58 L 16 126/80 H 96 Room Air 05/03/22 13:06 05/03/22 13:06 05/03/22 13:06 05/03/22 13:06 05/03/22 13:06 05/03/22 13:12 Oxygen Delivery Method Room Air Weight: 174 lb 6.17 oz Body Mass Index (BMI) 25.0 Intake & Output: Intake and Output for Last 24 Hours 05/01/22 05/02/22 05/03/22 23:59 23:59 23:59 Intake Total 328.33 / 328.33 Balance 328.33 / 328.33 Lab / Micro Data Result Diagrams: 05/03/22 09:05 05/03/22 09:05 Labs: Laboratory Results - last 24 hr 05/03/22 09:05: WBC 10.3, RBC 5.38, Hgb 16.4, Hct 50.4, MCV 93.7, MCH 30.5, MCHC 32.5, RDW Std Deviation 50.5 H, RDW Coeff of [place] 14.6, Plt Count 244, MPV 10.7 05/03/22 09:05: PT 13.5, INR 1.1, APTT 25.9 05/03/22 09:05: Sodium 143, Potassium 3.8, Chloride 106, Carbon Dioxide 27.0, Anion Gap 10, BUN 21 H, Creatinine 1.34 H, Estim Creat Clear Calc 46.15, Est GFR (MDRD) Af Amer 66, Est GFR (MDRD) Non-Af 55 L, BUN/Creatinine Ratio 15.7, Glucose 125 H, Calcium 9.6, Total Bilirubin 1.00, AST 28, ALT 35, Alkaline Phosphatase 50, Troponin I High Sens 13, Total Protein 7.5, Albumin 3.7, Globulin 3.8, Albumin/Globulin Ratio 1.0, Lipase 143 05/03/22 12:13: Troponin I High Sens 13 05/03/22 12:13: TSH 1.95 Cardiology Labs/Tests 05/03/22 09:05: WBC 10.3, RBC 5.38, Hgb 16.4, Hct 50.4, MCV 93.7, MCH 30.5, MCHC 32.5, Plt Count 244, MPV 10.7 05/03/22 09:05: PT 13.5, INR 1.1, APTT 25.9 05/03/22 09:05: Sodium 143, Potassium 3.8, Chloride 106, Carbon Dioxide 27.0, Anion Gap 10, BUN 21 H, Creatinine 1.34 H, Est GFR (MDRD) Af Amer 66, Est GFR (MDRD) Non-Af 55 L, BUN/Creatinine Ratio 15.7, Glucose 125 H, Calcium 9.6, Total Bilirubin 1.00 Rhythm: EKG: ECHO: Stress Test: Cardiac Cath: PCI: CT Surgery: Holter monitor: EPS: PPM: CXR: Chest CT Scan: Radiography Diagnostic Testing: Radiology Impression Chest/Abdomen/Pelvis CTA 05/03/22 09:24 IMPRESSION: No evidence of aneurysmal dilatation of the thoracic or abdominal aorta. Atherosclerotic plaque formation throughout. No evidence of dissection. Moderate sized hiatal hernia. Electronically Signed: Babak Samuels MD at 11:00 EST , Echocardiogram 05/03/22 12:38 Interpretation Summary Normal LV size. Mild concentric left ventricular hypertrophy. The left ventricular ejection fraction is 60 %. Stage 3 diastolic dysfunction. The left atrium is severely enlarged. The right atrium is moderately enlarged. Mild mitral valve prolapse, posterior leaflet Moderately severe (3+) anteriorly directed mitral valve insufficiency. Mild to moderate (1-2+) tricuspid valve insufficiency. Pulmonary artery systolic pressure is 58 mmHg. Mild (1+) aortic valve insufficiency. Moderate (2+) pulmonic valve insufficiency. Ordering Physician: Jose Lemus Referring Physician: Shira Borjas M.D. Performed By: Kelsy Chapman RCS
[2022-05-03 15:01] LABS: Troponin-I HS 14 pg/mL (3.0-78.0)
--- NOTE | 2022-05-03 15:30 | CASEMGMT ---
RN CM NOTE: RN CM to room. Pt resting in bed. @ bedside. Introduced self and role. Pt is independent @ home. Pt and deny having any discharge planning needs or concerns. [place] 30-day savings card given and instructed on use. Questions answered. They were instructed to ask for RN CM if any further questions or any discharge planning needs arise. Adrian DANIELSN RN CM
[2022-05-03] MEDS: Atorvastatin Calcium 10 MG Tablet PO (21:26)
[2022-05-03] MEDS: APIXABAN 5 MG TABLET PO (21:26)
[2022-05-03] MEDS: Metoprolol Tartrate 25 MG Tablet 12.5 MG PO (21:27)
[2022-05-04 03:10] VITALS: BP 148/76; PULSE 65; RESP 18; TEMP 36.5; O2SAT 94
[2022-05-04] MEDS: Levothyroxine 100 MCG Tablet PO (05:26)
[2022-05-04 07:15] LABS: Absolute Neutrophil Count 5.6 X10^3/uL (2.0-7.7); Basophil# 0.06 X10^3/uL; Basophil% 0.6 % (0-1); Eosinophils% 5.2 % (0-5); Hematocrit 40.6 % (40-54); Mean Corpuscular Hgb 30.4 pg (27.0-32.0); Mean Corpuscular Volume 95.1 fL (80-94); Mean Platelet Vol. 10.8 fl (6.2-12.0); Monocyte# 1.06 X10^3/uL; Monocyte% 11.1 % (0-10); NRBC Flagged by Analyzer 0 % (0-5); Neutrophil # 5.62 X10^3/uL (2.7-7.7); Neutrophil % 58.8 % (47-70); Platelet Count 188 K/mm3 (150-450); RBC Distribution Width CV 14.6 % (11.6-14.6); RBC Distribution Width SD 51.2 fl (35.1-43.9); Red Blood Count 4.27 M/mm3 (4.6-6.2); White Blood Count 9.6 K/mm3 (4.4-11.0)
--- NOTE | 2022-05-04 07:46 | PN.HOSP_ITS ---
Reason for Visit Reason for Visit: Diagnoses Hyperlipidemia, unspecified (05/03/22) Essential (primary) hypertension (05/03/22) Atherosclerotic heart disease of [place] coronary artery without angina pectoris (05/03/22) Pulmonary hypertension, unspecified (05/03/22) Nonrheumatic mitral (valve) insufficiency (05/03/22) Unspecified atrial fibrillation (05/03/22) Subjective Subjective Patient was seen in consultation by cardiology Dr. Paula recommended discontinuation of aspirin and increasing Eliquis dose to 5 mg p.o. twice daily. Patient also to undergo DARCY as outpatient to evaluate DARCY as outpatient to evaluate his mitral regurgitation Objective Data Objective Data Vital Signs: Vital Signs Temp Pulse Resp BP Pulse Ox O2 Del Method 97.7 F L 65 18 148/76 H 94 Room Air 05/04/22 03:10 05/04/22 03:10 05/04/22 03:10 05/04/22 03:10 05/04/22 03:10 05/04/22 03:15 Oxygen Delivery Method Room Air Weight: 79.1 kg Body Mass Index (BMI) 25.0 Intake & Output: Intake and Output for Last 24 Hours 05/02/22 05/03/22 05/04/22 23:59 23:59 23:59 Intake Total 1928.33 / 1928.33 Balance 1928.33 / 1928.33 Lab / Micro Data Result Diagrams: 05/04/22 06:37 05/04/22 06:37 Labs: Laboratory Results - last 24 hr 05/03/22 09:05: WBC 10.3, RBC 5.38, Hgb 16.4, Hct 50.4, MCV 93.7, MCH 30.5, MCHC 32.5, RDW Std Deviation 50.5 H, RDW Coeff of Darian 14.6, Plt Count 244, MPV 10.7 05/03/22 09:05: PT 13.5, INR 1.1, APTT 25.9 05/03/22 09:05: Sodium 143, Potassium 3.8, Chloride 106, Carbon Dioxide 27.0, Anion Gap 10, BUN 21 H, Creatinine 1.34 H, Estim Creat Clear Calc 46.15, Est GFR (MDRD) Af Amer 66, Est GFR (MDRD) Non-Af 55 L, BUN/Creatinine Ratio 15.7, Glucose 125 H, Calcium 9.6, Total Bilirubin 1.00, AST 28, ALT 35, Alkaline Phosphatase 50, Troponin I High Sens 13, Total Protein 7.5, Albumin 3.7, Globulin 3.8, Albumin/Globulin Ratio 1.0, Lipase 143 05/03/22 12:13: Troponin I High Sens 13 05/03/22 12:13: TSH 1.95 05/03/22 14:40: Troponin I High Sens 14 05/04/22 06:37: WBC 9.6, RBC 4.27 L, Hgb 13.0, Hct 40.6, MCV 95.1 H, MCH 30.4, MCHC 32.0, RDW Std Deviation 51.2 H, RDW Coeff of Darian 14.6, Plt Count 188, MPV 10.8, Immature Gran % (Auto) 0.300, Neut % (Auto) 58.8, Lymph % (Auto) 24.0, [place] % (Auto) 11.1 H, Eos % (Auto) 5.2 H, Baso % (Auto) 0.6, Absolute Neuts (auto) 5.6, Absolute Lymphs (auto) 2.30, Nucleated RBC % 0 Radiography Diagnostic Testing: Radiology Impression Chest/Abdomen/Pelvis CTA 05/03/22 09:24 IMPRESSION: No evidence of aneurysmal dilatation of the thoracic or abdominal aorta. Atherosclerotic plaque formation throughout. No evidence of dissection. Moderate sized hiatal hernia. Electronically Signed: Babak Samuels MD at 11:00 EST Reading Location ID and State: [address] [place] [address] , Service support , Echocardiogram 05/03/22 12:38 Interpretation Summary Normal LV size. Mild concentric left ventricular hypertrophy. The left ventricular ejection fraction is 60 %. Stage 3 diastolic dysfunction. The left atrium is severely enlarged. The right atrium is moderately enlarged. Mild mitral valve prolapse, posterior leaflet Moderately severe (3+) anteriorly directed mitral valve insufficiency. Mild to moderate (1-2+) tricuspid valve insufficiency. Pulmonary artery systolic pressure is 58 mmHg. Mild (1+) aortic valve insufficiency. Moderate (2+) pulmonic valve insufficiency. Ordering Physician: Jose Lemus Referring Physician: Shira Borjas M.D. Performed By: Kelsy Chapman RCS Physical Exam Narrative GENERAL: cooperative HEENT: Atraumatic; normocephalic EYES; Anicteric, Normal Conjunctiva NECK; supple, normal thyroid, RESPIRATORY: Diminished to auscultation CARDIOVASCULAR: Regular S1 S2, GI: soft, normoactive bowel sounds, : No Renal angle tenderness; EXTREMITIES: No edema, no clubbing, MUSCULOSKELETAL: no muscle wasting NEURO: Awake; no lateralizing signs. SKIN: No Rash PSYCH; Flat affect Assessment & Plan Assessment/Plan (1) Atrial fibrillation, new onset: PLAN: Plan Patient is a 77-year-old gentleman admitted with abdominal discomfort found to be in A-fib with RVR 1. New onset A-fib ? Patient has been admitted to monitored bed for subsequent evaluation. As part of his management ordered TSH serial cardiac enzymes 2D echo. Patient converted back to sinus rhythm prior to being admitted. 2D echo will be ordered as part of his evaluation. Patient was also started on systemic anticoagulation Eliquis 2.5 mg p.o. twice daily ? 05/04/2022 Patient was seen in consultation by cardiology Dr. Paula recommended discontinuation of aspirin and increasing Eliquis dose to 5 mg p.o. twice daily. Patient also to undergo DARCY as outpatient to evaluate DARCY as outpatient to evaluate his mitral regurgitation 2. Coronary artery disease ? With previous CABG and recent PCI with LORENZA to severe disease in the ostium of the left main trunk in December 2021 at [facility] 3. Dyslipidemia -Patient is on statin therapy, continued at home dose 4. Hypertension - Blood pressure controlled, home medications continued with dose adjustment as needed 5. Hypothyroidism - Patient is on levothyroxine home dose continued. 6. History of prostate CA ? Currently remission 7. DVT prophylaxis ? Placed on Eliquis Time spent in the patient's overall evaluation,decision-making process, review of diagnostic data, adjustment of management, discussion with other providers, nursing nursing and ancillary staff involved in patient's care documentation, 40 minutes Charges/Coding Visit Charges Inpatient E&M: 22386 Subs Hosp L2
[2022-05-04 07:54] LABS: Anion Gap 5 (5-15); BUN 18 mg/dL (7-18); BUN/Creat Ratio 16.8 RATIO (10-20); Calcium,Total 8.2 mg/dL (8.5-10.1); Chloride 112 mmol/L (98-107); Creatinine, Serum 1.07 mg/dL (0.70-1.30); EST Glomerular Filtration Rate 71 mL/min (>60); Est Glom Filt Rate - Afr Amer 86 mL/min (>60); Glucose 87 mg/dL (74-106); Potassium 4.2 mmol/L (3.5-5.1); Sodium Level 142 mmol/L (136-145)
[2022-05-04 08:53] VITALS: BP 126/69; PULSE 59; RESP 16; TEMP 36.4; O2SAT 97
[2022-05-04 08:58] VITALS: BP 126/69; PULSE 59
[2022-05-04] MEDS: Magnesium Chloride 64 MG Delay Rel.Tablet 128 MG PO (08:58)
[2022-05-04] MEDS: Clopidogrel Bisulfate 75 MG Tablet PO (08:58)
[2022-05-04] MEDS: APIXABAN 5 MG TABLET PO (08:58)
[2022-05-04] MEDS: Metoprolol Tartrate 25 MG Tablet 12.5 MG PO (08:58)
[2022-05-04] MEDS: amLODIPine 5 MG Tablet PO (09:01)
--- NOTE | 2022-05-04 09:15 | DS.PCM_ITS ---
Providers Date of Admission: 05/03/22 Date of Discharge: 05/04/22 Primary Care Physician: Dr. Shira Borjas, DO Reason For Visit: NEW ONSET AFIB Diagnosis Discharge Diagnosis (1) Atrial fibrillation, new onset: Status: Acute Code(s): I48.91 - Unspecified atrial fibrillation Plan Patient is a 77-year-old gentleman admitted with abdominal discomfort found to be in A-fib with RVR 1. New onset A-fib ? Patient has been admitted to monitored bed for subsequent evaluation. As part of his management ordered TSH serial cardiac enzymes 2D echo. Patient converted back to sinus rhythm prior to being admitted. 2D echo will be ordered as part of his evaluation. Patient was also started on systemic anticoagulation Eliquis 2.5 mg p.o. twice daily ? 05/04/2022 Patient was seen in consultation by cardiology Dr. Paula recommended discontinuation of aspirin and increasing Eliquis dose to 5 mg p.o. twice daily. Patient also to undergo DARCY as outpatient to evaluate DARCY as outpatient to evaluate his mitral regurgitation 2. Coronary artery disease ? With previous CABG and recent PCI with LORENZA to severe disease in the ostium of the left main trunk in December 2021 at [facility] [place] 3. Dyslipidemia -Patient is on statin therapy, continued at home dose 4. Hypertension - Blood pressure controlled, home medications continued with dose adjustment as needed 5. Hypothyroidism - Patient is on levothyroxine home dose continued. 6. History of prostate CA ? Currently remission 7. DVT prophylaxis ? Placed on Eliquis Medications at Discharge Home Medications cholecalciferol (vitamin D3) 25 mcg (1,000 unit) tablet 1,000 unit PO DAILY SUPPLEMENT 01/14/14 multivitamin with folic acid 400 mcg tablet 1 tab PO DAILY SUPPLEMENT 01/14/14 latanoprost 0.005 % eye drops 1 drp EACH EYE QHS EYES 01/03/17 omega-3 fatty acids-fish oil 684 mg-1,200 mg capsule,delayed release 1 ea PO DAILY SUPPLEMENT 01/03/17 cinnamon bark 500 mg capsule 500 mg PO DAILY 10/07/18 coenzyme [id number] E 100 mg-5 unit capsule 1 cap PO DAILY 10/07/18 magnesium oxide 500 mg capsule 500 mg PO DAILY 10/07/18 vitamin B complex 1 tab PO DAILY 10/07/18 nitroglycerin 0.4 mg sublingual tablet (Nitrostat) 0.4 mg sublingual Q5M PRN chest pain #25 tabs 12/07/19 furosemide 40 mg tablet (Lasix) 40 mg PO DAILY #90 tabs 03/15/21 metoprolol tartrate 25 mg tablet 12.5 mg PO BID BP #90 tabs 06/19/21 rosuvastatin 5 mg tablet 5 mg PO QHS cholesterol #90 tabs 08/20/21 levothyroxine 100 mcg tablet 100 mcg PO DAILY THYROID #90 tabs 09/06/21 clopidogrel 75 mg tablet 75 mg PO DAILY 09/18/21 epinephrine 0.3 mg/0.3 mL injection, auto-injector 0.3 mg IM X1 PRN Allergic Reaction 09/20/21 amlodipine 2.5 mg tablet 2.5 mg PO DAILY 12/20/21 apixaban 5 mg tablet (Eliquis) 5 mg PO BID 30 days #60 tabs 05/04/22 Hospital Course Summary of Care Provided Minutes Spent on Discharge: 38 Physical Exam Narrative GENERAL: cooperative HEENT: Atraumatic; normocephalic EYES; Anicteric, Normal Conjunctiva NECK; supple, normal thyroid, RESPIRATORY: Diminished to auscultation CARDIOVASCULAR: Regular S1 S2, GI: soft, normoactive bowel sounds, : No Renal angle tenderness; EXTREMITIES: No edema, no clubbing, MUSCULOSKELETAL: no muscle wasting NEURO: Awake; no lateralizing signs. SKIN: No Rash PSYCH; Flat affect Weight / BMI Weight Weight: 79.1 kg Body Mass Index (BMI) 25.0 ABG / Lab / Microbiology Data Result Diagrams: 05/04/22 06:37 05/04/22 06:37 Laboratory: Laboratory Results - last 24 hr 05/03/22 09:05: WBC 10.3, RBC 5.38, Hgb 16.4, Hct 50.4, MCV 93.7, MCH 30.5, MCHC 32.5, RDW Std Deviation 50.5 H, RDW Coeff of Darian 14.6, Plt Count 244, MPV 10.7 05/03/22 09:05: PT 13.5, INR 1.1, APTT 25.9 05/03/22 09:05: Sodium 143, Potassium 3.8, Chloride 106, Carbon Dioxide 27.0, Anion Gap 10, BUN 21 H, Creatinine 1.34 H, Estim Creat Clear Calc 46.15, Est GFR (MDRD) Af Amer 66, Est GFR (MDRD) Non-Af 55 L, BUN/Creatinine Ratio 15.7, Glucose 125 H, Calcium 9.6, Total Bilirubin 1.00, AST 28, ALT 35, Alkaline Phosphatase 50, Troponin I High Sens 13, Total Protein 7.5, Albumin 3.7, Globulin 3.8, Albumin/Globulin Ratio 1.0, Lipase 143 05/03/22 12:13: Troponin I High Sens 13 05/03/22 12:13: TSH 1.95 05/03/22 14:40: Troponin I High Sens 14 05/04/22 06:37: WBC 9.6, RBC 4.27 L, Hgb 13.0, Hct 40.6, MCV 95.1 H, MCH 30.4, MCHC 32.0, RDW Std Deviation 51.2 H, RDW Coeff of Darian 14.6, Plt Count 188, MPV 10.8, Immature Gran % (Auto) 0.300, Neut % (Auto) 58.8, Lymph % (Auto) 24.0, [place] % (Auto) 11.1 H, Eos % (Auto) 5.2 H, Baso % (Auto) 0.6, Absolute Neuts (auto) 5.6, Absolute Lymphs (auto) 2.30, Nucleated RBC % 0 05/04/22 06:37: Sodium 142, Potassium 4.2, Chloride 112 H, Carbon Dioxide 25.0, Anion Gap 5, BUN 18, Creatinine 1.07, Estim Creat Clear Calc 57.80, Est GFR (MDRD) Af Amer 86, Est GFR (MDRD) Non-Af 71, BUN/Creatinine Ratio 16.8, Glucose 87, Calcium 8.2 L, Magnesium 2.0 Radiography Diagnostic Testing: Radiology Impression Chest/Abdomen/Pelvis CTA 05/03/22 09:24 IMPRESSION: No evidence of aneurysmal dilatation of the thoracic or abdominal aorta. Atherosclerotic plaque formation throughout. No evidence of dissection. Moderate sized hiatal hernia. Electronically Signed: Babak Samuels MD at 11:00 EST Reading Location ID and State: [facility] / [place] , Service support , Echocardiogram 05/03/22 12:38 Interpretation Summary Normal LV size. Mild concentric left ventricular hypertrophy. The left ventricular ejection fraction is 60 %. Stage 3 diastolic dysfunction. The left atrium is severely enlarged. The right atrium is moderately enlarged. Mild mitral valve prolapse, posterior leaflet Moderately severe (3+) anteriorly directed mitral valve insufficiency. Mild to moderate (1-2+) tricuspid valve insufficiency. Pulmonary artery systolic pressure is 58 mmHg. Mild (1+) aortic valve insufficiency. Moderate (2+) pulmonic valve insufficiency. Ordering Physician: Jose Lemus Referring Physician: Shira Borjas M.D. Performed By: Kelsy Chapman RCS D/C Instructions Discharge Diet: Low fat / Low cholesterol Discharge Activity: Return to Normal Activity Call your doctor if you observe: Fever of 101 or Higher, Shortness of breath, Fainting spells and Chest pain Meaningful Use Info Meaningful Use Diagnoses (Choose all that apply): None applicable Discharge Plan Admission Admit Date/Time: 05/03/22 11:36 Attending Provider: Jose Lemus Primary Care Provider: Shira Borjas Discharge Orders/Prescriptions Prescriptions: New Eliquis 5 mg Tablet 5 mg PO BID 30 Days Qty: 60 0RF Continued furosemide [Lasix] 40 mg tablet 40 mg PO DAILY Qty: 90 3RF amlodipine 2.5 mg tablet 2.5 mg PO DAILY cholecalciferol (vitamin D3) 1,000 UNIT tablet 1,000 unit PO DAILY multivitamin with folic acid 1 TABLET tablet 1 tab PO DAILY latanoprost 1 DROP bottle 1 drp EACH EYE QHS omega-3 fatty acids-fish oil 1 EACH capsule,delayed release(DR/EC) 1 ea PO DAILY vitamin B complex 1 EACH tablet 1 tab PO DAILY cinnamon bark 500 MG capsule 500 mg PO DAILY coenzyme [id number] E 1 EACH capsule 1 cap PO DAILY magnesium oxide 500 MG capsule 500 mg PO DAILY epinephrine 0.3 mg/0.3 mL auto-injector 0.3 mg IM X1 PRN (Reason: Allergic Reaction) clopidogrel 75 mg Tablet 75 mg PO DAILY nitroglycerin [Nitrostat] 0.4 mg tablet, sublingual 0.4 mg SUBLINGUAL Q5M PRN (Reason: chest pain) Qty: 25 3RF metoprolol tartrate 25 mg tablet 12.5 mg PO BID Qty: 90 3RF rosuvastatin 5 mg tablet 5 mg PO QHS Qty: 90 3RF levothyroxine 100 mcg tablet 100 mcg PO DAILY Qty: 90 3RF Discontinued aspirin [Adult Low Dose Aspirin] 81 mg tablet,delayed release (DR/EC) 81 mg PO QDAY Qty: 90 3RF Referrals / Follow Up: Shira Borjas DO [Primary Care Provider] - Disposition Disposition (needs filled in before D/C Order can be placed): Home, Self Care Charges/Coding Visit Charges Inpatient E&M: 92712 Disch Hosp >30min
== END 2022-05-04 09:14 | disposition home or self-care (01) ==
LOC: ED 11:47 → PCU 11:55
PROVIDERS: Admitting Provider Internal Medicine; Emergency Provider Emergency Medicine; PCP Internal Medicine; Visit Provider Internal Medicine
DX: I48.91 Unspecified atrial fibrillation (principal); I48.92 Unspecified atrial flutter; Z87.891 Personal history of nicotine dependence; I10 Essential (primary) hypertension; Z95.1 Presence of aortocoronary bypass graft; Z79.02 Long term (current) use of antithrombotics/antiplatelets; I25.10 Atherosclerotic heart disease of native coronary artery without angina pectoris; Z79.82 Long term (current) use of aspirin; I34.0 Nonrheumatic mitral (valve) insufficiency; E78.5 Hyperlipidemia, unspecified; E03.9 Hypothyroidism, unspecified; Z79.890 Hormone replacement therapy; Z79.899 Other long term (current) drug therapy; Z95.5 Presence of coronary angioplasty implant and graft; Z85.46 Personal history of malignant neoplasm of prostate
CPT/HCPCS: 36415; 71275; 74174; 80048; 80053; 83690; 83735; 84443; 84484; 85025; 85027; 85610; 85730; 93005; 93306; 96361; 96374; 99221; 99285; J7030; Q9967; A4216; G0378

== ENCOUNTER 2022-06-02 21:09 | Emergency (ER) | payer MEDICARE, OTHER, SELFPAY ==
[2022-06-02 21:11] VITALS: BP 174/73; PULSE 63; RESP 15; TEMP 36.4; O2SAT 97; BMI 25.5
[2022-06-02 21:24] VITALS: BP 158/69
--- NOTE | 2022-06-02 21:33 | EDS_ITS ---
HPI History of Present Illness Chief Complaint: Hypertension Informant: patient Onset/Context/Timing Onset: Today Narrative Narrative: Patient presents secondary to fatigue and nausea. He has a history of mitral va lve prolapse and is awaiting a clip procedure at the [facility]. He states that he went outside this afternoon and was picking up some sticks about 20 minutes when he became short of breath and fatigue. He went in to sit down to rest and that sensation seem to improve. After dinner tonight he got nauseated. He states the symptoms reminded him of when he had his heart attack and required bypass surgery 20 years ago. He denies any chest pressure at this time. He did note that his blood pressure was higher than normal tonight. He states he normally runs 150s over 60s. [facility] Medical History Atherosclerosis of coronary artery bypass graft of [place] heart without angina pectoris Atherosclerotic heart disease of [place] coronary artery without angina pectoris Elevated PSA Essential hypertension Hyperlipidemia Hypothyroidism Incontinence of urine Nonrheumatic mitral (valve) insufficiency Nonrheumatic mitral (valve) prolapse Old inferolateral myocardial infarction Prostate cancer Urgency-frequency syndrome Home Medications multivitamin with folic acid 400 mcg tablet 1 tab PO DAILY SUPPLEMENT 01/14/14 [History Last Taken 05/02/22] latanoprost 0.005 % eye drops 1 drp EACH EYE QHS EYES 01/03/17 [History Last Taken 05/02/22] omega-3 fatty acids-fish oil 684 mg-1,200 mg capsule,delayed release 1 ea PO DAILY SUPPLEMENT 01/03/17 [History Last Taken 05/02/22] cinnamon bark 500 mg capsule 500 mg PO DAILY 10/07/18 [History Last Taken 05/02/22] magnesium oxide 500 mg capsule 500 mg PO DAILY 10/07/18 [History Last Taken 05/02/22] vitamin B complex 1 tab PO DAILY 10/07/18 [History Last Taken 05/02/22] nitroglycerin 0.4 mg sublingual tablet (Nitrostat) 0.4 mg sublingual Q5M PRN chest pain #25 tabs 12/07/19 [Rx Last Taken Unknown] metoprolol tartrate 25 mg tablet 12.5 mg PO BID BP #90 tabs 06/19/21 [Rx Last Taken 05/02/22] rosuvastatin 5 mg tablet 5 mg PO QHS cholesterol #90 tabs 08/20/21 [Rx Last Taken 05/02/22] levothyroxine 100 mcg tablet 100 mcg PO DAILY THYROID #90 tabs 09/06/21 [Rx Last Taken 05/02/22] clopidogrel 75 mg tablet 75 mg PO DAILY 09/18/21 [History Last Taken 05/02/22] epinephrine 0.3 mg/0.3 mL injection, auto-injector 0.3 mg IM X1 PRN Allergic Reaction 09/20/21 [History Last Taken Unknown] amlodipine 2.5 mg tablet 2.5 mg PO DAILY 12/20/21 [History Last Taken 05/02/22] apixaban 5 mg tablet (Eliquis) 5 mg PO BID 30 days #60 tabs 05/04/22 [Rx Last Taken Unknown] cholecalciferol (vitamin D3) 62.5 mcg (2,500 unit) capsule 125 mcg PO DAILY 05/07/22 [History Last Taken Unknown] coenzyme Q10 400 mg capsule 400 mg PO DAILY 05/07/22 [History Last Taken Unknown] ondansetron 4 mg disintegrating tablet 4 mg PO Q8H PRN PRN Nausea #10 tabs 06/03/22 [Rx Last Taken Unknown] Allergy/AdvReac Type Severity Reaction Status Date / Time bee venom protein (honey bee) Allergy Unknown hives/anaph Verified 06/02/22 21:14 ylaxis ramipril Allergy Angioedema Verified 06/02/22 21:14 Family History Father , of [place]'s disease [place]'s disease Mother , Age 60 of [place] CAD (coronary artery disease) Myocardial infarction Brother CAD (coronary artery disease) history of cabg Brother CAD (coronary artery disease) Stented coronary artery Diabetes Sister CAD (coronary artery disease) Myocardial infarction Hypertension Surgical History H/O coronary artery bypass surgery (11/1994) H/O prostatectomy History of coronary artery stent placement (09/14/21) History of left heart catheterization (04/30/21) Social History Smoking Status: Former smoker alcohol intake: current alcohol intake frequency: other Alcohol type: beer and wine caffeine: Yes Type: coffee Number of servings: 3 ROS ROS ED Constitutional Constitutional ED: Denies chills or fever(s) Eyes Eyes: Denies change in vision or discharge from eye(s) ENT ENT ED: Denies discharge from eye(s), rhinorrhea or sore throat Cardiovascular Cardiovascular: Reports chest pain; Denies palpitations Respiratory/Chest Respiratory/Chest: Reports dyspnea; Denies cough Gastrointestinal Gastrointestinal: Reports nausea; Denies abdominal pain, diarrhea or vomiting Genitourinary Genitourinary ED: Denies dysuria Musculoskeletal Musculoskeletal: Denies back pain or extremity pain Integumentary Denies Abrasions or rash Neurologic Neurologic: Denies headache(s) or weakness Psychiatric Psychiatric: Denies anxiety or depression Allergic/Immunologic Allergic/Immunologic ED: Denies lip swelling or urticaria EXAM Physical Exam Const Vital Signs: 06/02/22 21:11 06/02/22 21:21 06/02/22 21:24 Temperature 97.6 F L Temperature Source Temporal Pulse Rate 63 Respiratory Rate 15 Respiratory Effort Normal Non-Labored Respiratory Pattern Normal Blood Pressure 174/73 H 158/69 H Blood Pressure Mean 106 98 Pulse Ox 97 Oxygen Delivery Method Room Air 06/02/22 23:10 Temperature Temperature Source Pulse Rate 58 L Respiratory Rate 16 Respiratory Effort Respiratory Pattern Blood Pressure 147/73 H Blood Pressure Mean 97 Pulse Ox 95 Oxygen Delivery Method Room Air Positive well nourished and well developed General Appearance ED: well developed HEENT Reports normocephalic and head/scalp atraumatic Eyes PERRL and EOMs intact bilaterally Neck supple Chest Wall inspection of chest normal and palpation of chest normal Resp normal respiratory effort and clear to auscultation bilaterally Cardio regular rhythm Rate: bradycardia Heart Sounds: murmur GI normal to inspection, nondistended, normoactive bowel sounds Palpation: soft Extremity normal to inspection Neuro oriented x3 and no sensory deficits noted Sensorium / Orientation: alert Motor Exam: strength 5/5 throughout Psych mental status grossly normal Skin no rashes or lesions noted MDM MDM MDM Narrative Medical decision making narrative: Patient placed on cafeteria monitor. EKG obtained to evaluate for cardiac arrhythmia/ischemia. Labwork obtained to evaluate for leukocytosis, anemia, and electrolyte derangement. Chest x-ray obtained to evaluate for acute lung pathology, cardiac size, or mediastinal abnormality. Lab Data Attestation: I reviewed the patient's lab results. Labs: Laboratory Results - last 24 hr 06/02/22 06/02/22 06/02/22 21:43 21:43 21:43 WBC 7.3 RBC 4.48 L Hgb 13.7 Hct 42.2 MCV 94.2 H MCH 30.6 MCHC 32.5 RDW Std Deviation 47.8 H RDW Coeff of Darian 13.8 Plt Count 196 MPV 10.5 Immature Gran % (Auto) 0.300 Neut % (Auto) 53.0 Lymph % (Auto) 28.8 [place] % (Auto) 12.1 H Eos % (Auto) 5.2 H Baso % (Auto) 0.6 Absolute Neuts (auto) 3.8 Absolute Lymphs (auto) 2.09 Nucleated RBC % 0 Sodium 140 Potassium 4.0 Chloride 110 H Carbon Dioxide 24.0 Anion Gap 6 BUN 21 H Creatinine 1.33 H Estim Creat Clear Calc 46.50 Est GFR (MDRD) Af Amer 67 Est GFR (MDRD) Non-Af 55 L BUN/Creatinine Ratio 15.8 Glucose 151 H Calcium 8.5 Troponin I High Sens 10 B-Natriuretic Peptide 120.7 H 06/02/22 23:58 WBC RBC Hgb Hct MCV MCH MCHC RDW Std Deviation RDW Coeff of Darian Plt Count MPV Immature Gran % (Auto) Neut % (Auto) Lymph % (Auto) [place] % (Auto) Eos % (Auto) Baso % (Auto) Absolute Neuts (auto) Absolute Lymphs (auto) Nucleated RBC % Sodium Potassium Chloride Carbon Dioxide Anion Gap BUN Creatinine Estim Creat Clear Calc Est GFR (MDRD) Af Amer Est GFR (MDRD) Non-Af BUN/Creatinine Ratio Glucose Calcium Troponin I High Sens 11 B-Natriuretic Peptide Radiography Chest X-Ray - ED: 1 View, Read by ED Physician, Normal, Heart, Lungs and Mediastinum Diagnostic Testing: Clinical Impression(s) from Imaging Studies Chest X-Ray 06/02/22 21:47 IMPRESSION: No acute findings. Electronically Signed: Bubba Cee MD at 22:03 EDT Reading Location ID and State: [facility] include 234 beds at the [facility] / [place] Tel , Service support , EKG Initial EKG: Attestation: I personally reviewed and interpreted this EKG as follows: Interpretation: Sinus Rhythm (Sinus at 61 with no acute ischemia.) Differential Diagnosis Chest pain/SOB: pulmonary embolism Reason(s) PE less likely: Positive for patient taking oral anticoagulants and ACS ACS: Positive for no evidence of ACS based on cardiac biomarkers and EKG without ischemia Treatment and Re-Evaluation :: Patient was given Zofran for nausea and does feel improved at this time. CBC and chemistry studies are unremarkable. BNP is slightly elevated at 120. Initial troponin is normal at 10. Repeat troponin is 11. Patient will be given a prescription for Zofran at home. He does feel improved at this time. will call apprentice painter brush at [facility] tomorrow who is planning to perform his valvular clip. Discharge Plan Triage Chief Complaint: Hypertension ED Provider: Kisha Velazquez Dx/Rx/DC Orders Clinical Impression: Nausea, Atypical chest pain Instructions: ED Chest Pain, Uncertain Cause Prescriptions: New ondansetron 4 mg tablet,disintegrating 4 mg PO Q8H PRN PRN (Reason: Nausea) Qty: 10 0RF No Action amlodipine 2.5 mg tablet 2.5 mg PO DAILY cholecalciferol (vitamin D3) 62.5 mcg (2,500 unit) capsule 125 mcg PO DAILY coenzyme Q10 400 mg capsule 400 mg PO DAILY multivitamin with folic acid 1 TABLET tablet 1 tab PO DAILY latanoprost 1 DROP bottle 1 drp EACH EYE QHS omega-3 fatty acids-fish oil 1 EACH capsule,delayed release(DR/EC) 1 ea PO DAILY vitamin B complex 1 EACH tablet 1 tab PO DAILY cinnamon bark 500 MG capsule 500 mg PO DAILY magnesium oxide 500 MG capsule 500 mg PO DAILY epinephrine 0.3 mg/0.3 mL auto-injector 0.3 mg IM X1 PRN (Reason: Allergic Reaction) clopidogrel 75 mg Tablet 75 mg PO DAILY Eliquis 5 mg Tablet 5 mg PO BID 30 Days Qty: 60 0RF nitroglycerin [Nitrostat] 0.4 mg tablet, sublingual 0.4 mg SUBLINGUAL Q5M PRN (Reason: chest pain) Qty: 25 3RF metoprolol tartrate 25 mg tablet 12.5 mg PO BID Qty: 90 3RF rosuvastatin 5 mg tablet 5 mg PO QHS Qty: 90 3RF levothyroxine 100 mcg tablet 100 mcg PO DAILY Qty: 90 3RF Primary Care Provider: Shira Borjas Referrals: Shira Borjas DO [Primary Care Provider] - As Needed Activity Restrictions/Additional Instructions: Follow-up with your [facility] apprentice painter brush as planned. Disposition Disposition: Home, Self Care
[2022-06-02] MEDS: Ondansetron 4 MG/2 ML Vial IV (21:44)
--- NOTE | 2022-06-02 21:47 | RAD_ITS ---
STUDY: X-RAY CHEST REASON FOR EXAM: Male, 77 years old. Nausea and fatigue. TECHNIQUE: AP portable upright COMPARISON: CT chest 05/03/2022 FINDINGS: No evidence of pneumonia, pulmonary edema, pneumothorax or pleural effusion. Cardiac silhouette, hilar and mediastinal contours with no acute findings. Heart size normal. Moderate hiatal hernia. Atherosclerosis of the thoracic aorta. Sternotomy wires. Degenerative osseous changes with no acute osseous abnormality. Mild right scoliosis thoracic spine. RAD/Chest 1 View (Portable) IMPRESSION: No acute findings. Electronically Signed: Bubba Cee MD at 22:03 EDT Reading Location ID and State: [facility] / [place] Tel , Service support ,
[2022-06-02 21:49] LABS: Absolute Lymphocyte Count 2.09 X10^3/uL (0.83-4.51); Absolute Neutrophil Count 3.8 X10^3/uL (2.0-7.7); Basophil# 0.04 X10^3/uL; Basophil% 0.6 % (0-1); Eosinophil# 0.38 X10^3/uL; Eosinophils% 5.2 % (0-5); Hematocrit 42.2 % (40-54); Hemoglobin 13.7 g/dL (13.0-16.5); Lymphocyte # 2.09 X10^3/ul (0.83-4.51); Lymphocyte % 28.8 % (19-41); Mean Corp Hgb Conc 32.5 g/dL (32-36); Mean Corpuscular Hgb 30.6 pg (27.0-32.0); Mean Corpuscular Volume 94.2 fL (80-94); Mean Platelet Vol. 10.5 fl (6.2-12.0); Monocyte# 0.88 X10^3/uL; Monocyte% 12.1 % (0-10); NRBC Flagged by Analyzer 0 % (0-5); Neutrophil # 3.84 X10^3/uL (2.7-7.7); Platelet Count 196 K/mm3 (150-450); RBC Distribution Width CV 13.8 % (11.6-14.6); RBC Distribution Width SD 47.8 fl (35.1-43.9); Red Blood Count 4.48 M/mm3 (4.6-6.2); White Blood Count 7.3 K/mm3 (4.4-11.0)
[2022-06-02 22:07] LABS: Anion Gap 6 (5-15); BUN 21 mg/dL (7-18); BUN/Creat Ratio 15.8 RATIO (10-20); Calcium,Total 8.5 mg/dL (8.5-10.1); Chloride 110 mmol/L (98-107); Creatinine, Serum 1.33 mg/dL (0.70-1.30); EST Glomerular Filtration Rate 55 mL/min (>60); Est Glom Filt Rate - Afr Amer 67 mL/min (>60); Glucose 151 mg/dL (74-106); Sodium Level 140 mmol/L (136-145); Troponin-I HS (w/2H Reflex) 10 pg/mL (3.0-78.0)
[2022-06-02 22:14] LABS: BNP,B-Type NATRIURETIC PEPTIDE 120.7 pg/mL (0-100)
[2022-06-02 23:10] VITALS: BP 147/73; PULSE 58; RESP 16; O2SAT 95
[2022-06-02 23:46] LABS: Reflex Troponin-HS? (from REC) Y
[2022-06-03 00:26] LABS: Troponin-I HS 11 pg/mL (3.0-78.0)
[2022-06-03 00:44] VITALS: BP 148/79; PULSE 57; RESP 15; O2SAT 99
== END 2022-06-03 00:45 | disposition home or self-care (01) ==
PROVIDERS: Emergency Provider Emergency Medicine; PCP Internal Medicine; Visit Provider Emergency Medicine
DX: R07.89 Other chest pain (principal); E78.5 Hyperlipidemia, unspecified; I10 Essential (primary) hypertension; R06.02 Shortness of breath; R11.0 Nausea; Z87.891 Personal history of nicotine dependence; I25.10 Atherosclerotic heart disease of native coronary artery without angina pectoris
CPT/HCPCS: 71045; 80048; 83880; 84484; 85025; 93005; 96374; 99284; A4216; J2405

== ENCOUNTER → 2022-07-08 | Outpatient (CLI) | payer MEDICARE, OTHER, SELFPAY ==
[2022-07-08 17:53] LABS: PSA,Total- Diagnostic < 0.01 ng/mL (0.0-4.0)
== END | disposition home or self-care (01) ==
LOC: LAB 15:53
PROVIDERS: PCP Internal Medicine; Referring Provider Registered Nurse; Visit Provider Registered Nurse
DX: C61 Malignant neoplasm of prostate (principal)
CPT/HCPCS: 36415; 84153

== ENCOUNTER → 2022-07-15 | Outpatient (CLI) | payer MEDICARE, OTHER, SELFPAY ==
--- NOTE | 2022-07-15 08:01 | PCM.CR.HP2 ---
CR - History & Physical - General Arrival date:: 07/15/22 Arrival time:: 08:06 Date of Referral:: 07/08/22 Date of CR Evaluation:: 07/15/22 Referring Physician: Dr. Abhishek Felix @ [facility] / Dr. Rodriguez local law office manager - History of Present Cardiac Event Onset Date: Enter Onset Date of cardiac illnesses in Comment field below Current stable Angina Pectoris:: No Acute Myocardial Infarction within 12 months:: No Coronary Artery Bypass Graft:: Yes - 1994 Heart valve replacement or repair:: Yes - 06/26/2022 Mitral valve Repair implant with 2-clips PTCA or coronary stenting:: Yes - August 2021, 06/26/2022 during time of the mitral valve repair. Heart or Heart-Lung Transplant:: No Heart Failure EF <35%:: No Interventions with present event:: Two macho clips devices deployed at the mitral valve Were there any complications?: None, decreased regurgitation 3-4 to trivial. - Sleep Disorder Evaluation Hx of Sleep Apnea: No Do you snore loudly (louder than talking or can be heard through closed doors)?: No Do you often feel tired/ fatigued/ sleepy during daytime?: No Has anyone observed you stop breathing during sleep?: No History of Hypertension (for STOP score): Yes STOP Results: Negative - Medications Home Medications: Ambulatory Orders Medication Instructions Recorded multivitamin with folic acid 400 1 tab PO DAILY SUPPLEMENT 01/14/14 mcg tablet latanoprost 0.005 % eye drops 1 drp EACH EYE QHS EYES 01/03/17 omega-3 fatty acids-fish oil 684 1 ea PO DAILY SUPPLEMENT 01/03/17 mg-1,200 mg capsule,delayed release cinnamon bark 500 mg capsule 500 mg PO DAILY 10/07/18 magnesium oxide 500 mg capsule 500 mg PO DAILY 10/07/18 vitamin B complex 1 tab PO DAILY 10/07/18 nitroglycerin 0.4 mg sublingual 0.4 mg sublingual Q5M PRN chest 12/07/19 tablet (Nitrostat) pain #25 tabs rosuvastatin 5 mg tablet 5 mg PO QHS cholesterol #90 tabs 08/20/21 levothyroxine 100 mcg tablet 100 mcg PO DAILY THYROID #90 tabs 09/06/21 clopidogrel 75 mg tablet 75 mg PO DAILY 09/18/21 epinephrine 0.3 mg/0.3 mL 0.3 mg IM X1 PRN Allergic Reaction 09/20/21 injection, auto-injector amlodipine 2.5 mg tablet 2.5 mg PO DAILY 12/20/21 cholecalciferol (vitamin D3) 62.5 125 mcg PO DAILY 05/07/22 mcg (2,500 unit) capsule coenzyme Q10 400 mg capsule 400 mg PO DAILY 05/07/22 ondansetron 4 mg disintegrating 4 mg PO Q8H PRN PRN Nausea #10 tabs 06/03/22 tablet apixaban 5 mg tablet (Eliquis) 5 mg PO BID #60 tabs 07/02/22 metoprolol tartrate 25 mg tablet 12.5 mg PO BID BP #90 tabs 07/10/22 amlodipine 2.5 mg tablet (Norvasc) 2.5 mg PO DAILY 07/15/22 cephalexin 500 mg capsule 500 mg PO Q12H 07/15/22 - Allergies Allergies/Adverse Reactions: Allergies bee venom protein (honey bee) Allergy (Unknown, Verified 06/02/22 21:14) hives/anaphylaxis ramipril Allergy (Verified 06/02/22 21:14) Angioedema Advanced Directives - Advanced Directives Power of White Washer Piler: Yes Living Will: Yes Advance Directives Information Provided: No Advance Directives on File: Yes - Not sure DNR Order?:: No - MOLST See MOLST form: No Past Medical History - Covid-19 Screening Fever: No Unexplained muscle aches: No Current respiratory symptoms: No Upper respiratory infections symptoms: No Gastro-intestinal symptoms: No Xsy-Frdh-[id number] symptoms: Yes - Wax build-up in ears has to have removed about twice per year. Has tested positive for COVID-19 in last 30 days: No Had contact w/person w/symptoms or Covid-19 (+) last 14 days: No Has High Risk Exposures ID'd by Health dept/Inf Control team: No 65 years or older:: Yes Lives in Assisted Living facility:: No Has a chronic lung disease or moderate to severe asthma:: No Has a serious heart condition:: Yes Immunocompromised:: No Severely obese (Body Mass Index of 40 or higher):: No Diabetic:: No Has chronic kidney disease undergoing dialysis:: No Has liver disease:: No - Past Medical Illness Medical History: Past Medical History (Last Reviewed 06/02/22 @ 21:[address] 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 Linares History of coronary artery stent placement Onset Date: 09/14/21 Z95.5 PCI of the ostial left main into LCx with a 4.0 x 15 mm Xience LORENZA 09/14/2021 History of left heart catheterization Onset Date: 04/30/21 Z98.890 1994, 06/21/2003, 01/06/17, 04/30/2021 Status post mitral valve repair Z98.890 2-metal clips performed at [facility] Surgical History: - - CABG x 3, prostatectomy, tonsillectomy, pilonidal cyst surgery, left elbow surgery with hardware. - Family History Summary Family History: Family History (Last Reviewed 06/02/22 @ 21:[address] Kisha Velazquez MD) Father , of Phillips's disease Phillips's disease Mother , Age 60 of [place] CAD (coronary artery disease) Myocardial infarction Brother CAD (coronary artery disease) history of cabg Brother CAD (coronary artery disease) Stented coronary artery Diabetes Sister CAD (coronary artery disease) Myocardial infarction Hypertension Social History - Smoking History Smoking Status: Never smoker Hx Tobacco Use: No Hx Smoking Exposure: No - Alcohol Use Alcohol Usage: Yes - occasional beer - Substance Abuse Hx Substance Use: No - Occupation Occupation (List type of work in comments):: Retired - Hobbies, Recreation, Social Activities Hobbies: None Recreational Activities: I am able to engage in all my recreational activities Social Environment - Status Marital Status: - Current Living Arrangements Living Environment:: Spouse - Children How many children do you have?: 2 - Oldest son from Leukemia Do any of your children live nearby?: Yes - Safety Do you feel safe in your surroundings?: Yes - Assistance Do you need any assistance at home?: no Review of Systems - Review of Systems Hints: Right click = Denies ([place]). Left click = Reports ([place]) Review of Present Symptoms: Reports: Shortness of Breath with Exertion - was previous but since the recent surgery clipping and stent hasn't had any real issues., Appetite - Normal, Sleep - Normal. Denies: Shortness of Breath at Rest, Angina, Dizziness/Lightheadedness, Fatigue, Heart Arrhythmia/Irregularities, Appetite - Special Diet - Try to watch but most times I don't. Don't use any added salt., Sexual Changes - Pain Is Patient Pain Free?: Yes Pain Location: none Pain Level: 0/10 Risk Factor Assessment - Chief Complaint Chief Complaint: Patient is a 77 yr male who presents to cardiac rehab today following recent mitral valve repair with 2- metal clips performed at the [facility] on 06/26/2022. Patient is recovering well. He recently had his post-op echocardiogram done and virtually has no leakage now and no regurgitation can be heard. - Vital Signs Temperature: 97.6 F Respiratory Rate: 14 Pulse Ox: 96 Blood Pressure: 150/75 - Pulse Pulse Rate: 62 Pulse Rhythm: Regular - Hypertension How long have you been treated?: since before 1994 Blood Pressure Sitting - Left Arm: 150/75 - Blood Cholesterol/Lipids Total Cholesterol (mg/dL) Goal = less than 200 mg/dL: 131 HDL Cholesterol (mg/dL) Goal = less than 40 mg/dL: 41 LDL Cholesterol (mg/dL) Goal = less than 70 mg/dL: 67 Triglycerides (mg/dL) Goal = less than 150 mg/dL: 113 - Diabetes Nutrition Referral for Diabetes: No - Obesity Height: 5 ft 10 in Weight:: 175 lb Weight in Pounds: 175.0 lbs Weight Source: Stated by Patient Body Mass Index (BMI): 25.1 Nutritional Referral for Obesity: No - Risk Stratification Risk Guidelines: Lowest Risk: Risk Factor for Smoking, Risk Factor for Dyslipidemia, Risk Factor for Diabetes, Risk Factor for Obesity, Risk Factor for Sedentary Lifestyle, Risk Factor for Depression, Highest Risk: Risk Factor for Hypertension - 150/75 BP today > than recommended 130/80 - Family History Family History: Family History (Last Reviewed 06/02/22 @ 21:[address] Kisha Velazquez MD) Father Rohini's disease Mother CAD (coronary artery disease) Myocardial infarction Brother CAD (coronary artery disease) history of cabg Brother CAD (coronary artery disease) Stented coronary artery Diabetes Sister CAD (coronary artery disease) Myocardial infarction Hypertension Motivation - Motivation to Participate On a scale of 1 to 10, how prepared are you to commit to attending program?: 10 What do you see as barriers to successfully being able to complete the program?: none What do you see as the benefits of succesfully completing the program? In other words, what do you hope to get out of participating in the program?: getting back into my routine, eating healthier, return to exercise Are there issues you are dealing with that will interfere with completing the program?: none Do you have a spouse or signficant other, family or friends who will help support you to complete the program?: yes
--- NOTE | 2022-07-15 08:02 | PCM.CR.ITP ---
Diagnosis - General Information Admitting Diagnosis: S/P Mitral Valve Repairn w/ 2 metal clips performed. Secondary Diagnosis: Hyperlipidemia, Hypertension, Previous PCI w/coronary stenting, Previous CABG Personal Learning Style:: Audio/Visual, Written Barriers to Learning: Vision Impairment Stage of change r/t lifestyle modifications:: Action Gave educational material for:: Treating Heart Disease, Emotions & Heart Disease, Stress Management & Relaxation, Sleep Disorders & Heart Disease, How The Heart Works, What it means to have Heart Disease, How Coronary Artery Disease is Diagnosed, Heart Procedures, What Heart Medications Do, Risk Factors & Modifications, Living an Active Life, Nutrition - Education/Goals Individual Counseling: Initial Assessment: Abnormal Cholesterol Levels, High Blood Pressure Cardiac Rehabilitation Goals: 1. Maintain the individual as the primary focus of care. 2. To improve the patient's quality of life. 3. Identification of cardiac risk factors and provide cardiac risk factor management. 4. Enhance the psychosocial status of the patient. 5. Reconditioning enough to allow the patient to resume customary activities. 6. Control symptoms of cardiac disease Personal Goals: Initial Assessment: Improve management of stress and emotions, Improve energy level, Participate in home exercise program, Get back to work, or to resume activities faster, Improve knowledge of cardiac disease, Improve muscle strength and endurance, Improve diet and eating habits (eat healthier), Control risk factors (learn risk factor modification) Scale for measuring improvement of personal goals: Enter appropriate number in Comments. 2 = Unchanged. 3 = Slightly Better. 4 = Moderate Improvement. 5 = Met my Goal - Diagnosis & Disease Process Outcomes/Goals: Pt IDs own risk factors & lifestyle modifications by Session 10, Verbalizes symptoms of angina & response by session 3., Pt independently manages Plan/Interventions: Assist Pt to ID & engage in lifestyle modification to reduce CVD risk, Instruct on individual risk factors, Review symptoms of angina & emergency actions, Review secondary diagnosis & identify educational needs. - Safety Referral to Physical Therapy: No Referral to [facility] Case Management: No Fall Risk Assessed:: Yes Assistive Devices:: None Exercise - Initial Assessment - Visit Date of Eval: 07/15/22 Session #:: 0 - Pre-cardiac rehab evaluation Mets: Pre-: >7 METS for 30 minutes by discharge - Physician Prescribed Exercise Modalities: Treadmill, Airdyne, NuStep Frequency: 3x/week for 12 weeks [36 sessions] Intensity: 60-80% of age predicted maximum heart rate reserve Duration: 30 - 45 minutes Current METSs:: 4.0 Target Heart Rate:: 92-106 Resting Blood Pressure: 150/75 EKG Type: Sinus Bradycardia - Outcomes & Goals Goals:: Verbalizes understanding of THR, RPE & goal METS by session 6, Documents in home exercise log/reports 30 min aerobic 5 day/wk by DC, Demonstrates accurate pulse taking by DC - Intervention & Plan Exercise Program Goals: Instruct on personal THR & RPE, Instruct on MET level & personal MET goal, Show patient to take own pulse /validate performance until accurate, Instruct on home exercise - Physical Activity Home Exercise Physical Activity - Home Exercise: Safe Exercise, Warm-up, Self-monitoring, Cool-Down, Home Exercise > 30 min Daily, Sitting Time <3 hours/daily - Outcomes & Goals Outcomes/Goals: Demonstrates correct Warm-up/exercise Cool-Down (S3) if = 2.5 METs, Verbalizes symptoms of exercise intolerance by Session 3 (S3), Demonstrate safe equipment use (S3) & follows exercise prescrition (6) - Intervention & Plan Plan/Intervention: Instruct warm-up & cool-down if exercising at > 2 METs, Instruct on symptoms of exercise intolerance & actions to take, Instruct & monitor on saf, Assess intial functional capacity & safety risk Nutrition - Initial Assessment - Program Goals Nutrition Program Goals: LDL <100 optimal. 100 - 129 Near optimal. 130 - 159 Borderline High. 160 - 189 High. Total Cholesterol <200 desirable. 200 - 239 Borderline High. >/= 240 High. HDL < 40 Low >/=60 High. Triglycerides <150 desirable. <199 optimal. VlDL 5 - 40. HgbA1C <7%. BMI <25 Patient has diagnosis of Hyperlipidemia (ICD E78)?: Yes - Visit Date of Assessment:: 07/15/22 Session #:: 0 - Pre-cardiac rehab evaluation - Cholesterol/Lipids (Other Core Measures) Triglycerides (mg/dL): 113 Total Cholesterol (mg/dL): 131 LDL Cholesterol (mg/dL): 67 HDL Cholesterol (mg/dL): 41 Determine presence & major risk factors that modify LDL goal: Hypertension or hypertensive medication, Family history of premature CHD in Male < 55 years: female <65 yearsFa, Age men > 45 years; women >/= 55 years Outcomes/Goals: Pt IDs own risk factors & lifestyle modifications by Session 10, Verbalizes symptoms of angina & response by session 3., Pt independently manages Intervention/Plan: Instruct on personal lipid levels & lipid goals/NCEP guidelines, Instruct on cholesterol Referral to dietitian:: Yes - Medical Nutrition Therapy - Diabetes (Other Core Measures) Diabetes Type: Not Applicable - Weight Mgt (Other Care) Not Applicable: Yes Height: 5 ft 10 in Weight:: 176 lb BMI: 25.2 Diagnosis Overweight/Obesity BMI> 30% ICD-10 E66: No Diagnosis High BMI/Morbid Obesity BMI> 35% ICD-10 Z68: No Outcomes/Goals: Pt sets, maintains & shows weight loss goal & trend during rehab Intervention/Plan: Instruct on ideal BMI & set weight loss goal w/patient - Healthy Eating Habits Will attend diet classes:: Yes Outcomes/Goals:: Consume diet rich in vegs,fruits,whole grain/high fiber,fish,lean meat, Limit sat/trans fats,cholesterol & added salts & sugars Intervention/Plan:: Assess current eating habits - Education Gave educational materials for:: Healthy eating Nutrition - 30-Day Assessment Nutrition - 60-Day Assessment Nutrition - 90-Day Assessment Nutrition - Final Assessment Core - Initial Assessment - Visit Date of Eval: 07/15/22 Session #:: 0 - Pre-cardiac rehab evaluation - Medication Compliance Preventative Medication(s):: Aspirin, Clopidogrel/P2Y12 inhibit, Statin/lipid, Beta rigo, Eliquis H/O mental health issues: depression, anxiety, or addiction?: No Doesn?t believe in the benefits of treatment?: No Believes medications are unnecessary or harmful?: No Has a concern about medication side effects?: No Expresses concern over the cost of medications?: No Outcomes/Goals: Verbalizes medications,desired effect & common side effects @ DC, Pt self-reports following medication regimen, Keeps card in wallet w/medications listed by DC Interventions/plans: Instruct on medication effects & side effects, Review medication list w/patient every two weeks, Instruct importance of taking meds as ordered & assist problem solving - Tobacco Use Tobacco Use: Non-smoker - Hypertension Hypertension Diagnosis:: Hypertension ICD-10 I10 Resting Blood Pressure:: 150/75 [place] [employer] Hypertension Guidelines: [place] [employer] Hypertension Guidelines. Normal BP Less than 120/80. Elevated BP 120/80. Hypertension Stage 1: BP 130-139/80-89. Hypertesnion Stage 2: BP 140 or higher/90 or higher. Hypertension Crisis: BP higher than 180/120 Outcomes/Goals: Able to verbalize/achieve optimal blood pressure <130/80, Incorporates diet changes & exercise for blood pressure control by DC Interventions/plan: Instruct on optimal blood pressure, hypertension & medications, Instruct on effects of sodium, alcohol, stress, exercise &hypertension - Tobacco Cessation Referral Smoking Cessation Referral:: No Individual Education/Counseling:: No Education Schedule Given:: Yes Core - 30-Day Assessment Core - 60-Day Assessment Core - 90 Day Assessment Core - Final Assessment Psychosocial - Initial Assess - VIsit Date of Eval: 07/15/22 Session #:: 0 - Pre-cardaic Rehab Evaluation Not Applicable: Yes History of previous Mental disease:: No - Psychosocial Test Tool Used:: Ferrans Burak QOL Cardiac, PHQ-9 Questionnaire phq-9 Severity: Severity. 1-4 Minimal Depression. 5-9 Mild Depression. 10-14 Moderate Depression. 15-19 Moderately Sever Depression. 20-27 Severe Depression. Rule: - Referral to Behavioral Health PS - Interventions: Yes Attend Stress Management Classes, No Referral to Behavioral Health if PHQ-9 score >9:, No Referral to [facility], No Referral to Physician if PHQ-9 if score is 5-9: - Outcomes/Goals: See list Psychosocial Outcomes/Goals:: ID's personal stressors & 2 strategies to manage stress by discharge - Intervention/Plan: See List Interventions/Plan:: Assess stressors,coping strategies & signs of derpression on admission, Instruct/assist pt to develop coping & personal stress Mgt strategies, Instruct patient to recognize signs & symptoms of depression, Instruct patient to recog Psychosocial - 30-Day Assess Psychosocial - 60-Day Assess Psychosocial - 90-Day Assess Psychosocial - Final Assessmen Patient Health Questionnaire Initial Assessment 1. Little interest or pleasure in doing things: Not at all 2. Feeling down, depressed, or hopeless: Not at all 3. Trouble falling or staying asleep, or sleeping too much: Not at all 4. Feeling tired or having little energy: Not at all 5. Poor appetite or overeating: Not at all 6. Feeling bad about yourself -- or that you are a failure or have let yourself or your family down: Not at all 7. Trouble concentrating on things, such as reading the newspaper or watching television: Not at all 8. Moving or speaking so slowly that other people could have noticed. Or the opposite - being so fidgety or restless that you have been moving around a lot more than usual: Not at all 9. Thoughts that you would be better off , or of hurting yourself in some way: Not at all How difficult have these problems made it for you to do your work, take care of things at home, or get along with other people?: Not difficult at all Total Score: 0 MARCELLUS-Q SV Test - Statements CAD is a disease of the arteries in the heart: False Examples of risk factors for heart disease: True Angina is chest pain or discomfort: I Don't Know The benefits of resistance training include: True Eating more meat and dairy products: False Anti-platelet medications such as aspirin are important: True The only effective way to manage stress: I Don't Know An exercise warm-up slowly increases heart rate: True Prepared, processed foods usually have high sodium: True Depression is common after a heart attack: I Don't Know The statin medications lower cholesterol: True To control blood pressure, lower the amount of sodium: True If someone gets chest discomfort during walking: False Transfats are partially hydrogenated vegetable oils: True Sleep apnea that is not treated increases the risk: I Don't Know To control cholesterol, one should become a vegetarian: False Someone knows if he/she is exercising at the right level: True Diabetes cannot be prevented with exercise & health eating: False Stress is a large risk for heart attack: True A diet that can help lower blood pressure is rich in: True - Total Score Total Correct Responses: 16 Self-Efficacy Initial Assessment We would like to know how confident you are in doing certain activities. Please select your confidence level for:: Select your confidence level for the following using the scale 1-10 where 1 is not at all confident and 10 is totally confident. Your score is the average of all 6 responses. Fatigue: How confident are you that you can keep the fatigue caused by your disease from interfering with the things you want to do? Select Number: 8 Physical Discomfort or Pain: How confident are you that you can keep the physical discomfort or pain of your disease from interfering with the things you want to do? Select Number: 8 Emotional Distress: How confident are you that you can keep the emotional distress caused by your disease from interfering with the things you want to do? Select Number: 8 Other Symptoms or Health Problems: How confident are you that you can keep other symptoms or health problems from interfering with the things you want to do? Select Number: 7 Different Tasks and Activities: How confident are you that you can do the different tasks and activities needed to manage your health condition so as to reduce your need to see a doctor? Select Number: 8 Medication: How confident are you that you can do things other than just taking medication to reduce how much your illness affects your everyday life? Select Number: 9 Total Score:: 8 Nutrition Survey - Nutrition Survey Initial Have you lost >10 lbs over the past 2 months without trying?: No Are you following a special diet at home for diabetes, low fat, or low salt?: Yes Are you interested in meeting with a dietitian for help understanding your diet?: No Do you eat less than 3 meals a day?: No Do you eat fatty meats (cadet, sausage, ribs, etc), fried foods, desserts, large amounts of salad dressings, margarine, butter, or cheese most days?: Yes Do you have food allergies? [Enter types in comment field]: No Do you eat in restaurants more than 3 times a week?: No Do you season food with salt, seasoning salt, or garlic salt?: No Do you used canned, boxed, frozen meals, or soups, seasoning packets?: Yes - Potential nutrional Risk, referred to [facility] for Medical Nutrition Therapy. Total Score:: 3
[2022-07-15 08:48] VITALS: BP 150/75; PULSE 62; RESP 14; TEMP 36.4; O2SAT 96; BMI 25.1
[2022-07-15 09:14] VITALS: BP 150/75; BMI 25.2
== END | disposition home or self-care (01) ==
PROVIDERS: PCP Internal Medicine
DX: Z98.890 Other specified postprocedural states (principal); Z95.818 Presence of other cardiac implants and grafts; Z95.5 Presence of coronary angioplasty implant and graft

== ENCOUNTER 2022-07-24 08:00 | Outpatient (RCR) | payer MEDICARE, OTHER, SELFPAY ==
[2022-07-15 08:49] VITALS: BMI 25.2
== END 2022-07-24 23:59 ==
LOC: CR 08:00
PROVIDERS: PCP Internal Medicine
DX: Z95.5 Presence of coronary angioplasty implant and graft (principal); Z98.890 Other specified postprocedural states; Z95.818 Presence of other cardiac implants and grafts
CPT/HCPCS: 93798

== ENCOUNTER 2022-08-23 08:00 | Outpatient (RCR) | payer MEDICARE, OTHER, SELFPAY ==
[2022-07-15 09:14] VITALS: BMI 25.2
--- NOTE | 2022-08-14 08:07 | PCM.CR.ITP ---
Diagnosis Exercise - 30-day Assessment - Visit Date of Eval: 08/14/22 Session #:: 11 - Physician Prescribed Exercise Modalities: Treadmill, Airdyne, NuStep Frequency: 3x/week for 12 weeks [36 sessions] Intensity: 60-80% of age predicted maximum heart rate reserve Current METSs:: 3 Target Heart Rate:: 92-106 Current RPE:: 11-12 Maximum Excercise HR:: 80 Resting Blood Pressure: 140/68 Maximum Exercise Blood Pressure: 140/68 EKG Type: SB to Sr with rare PAC - Outcomes & Goals Goals:: Verbalizes understanding of THR, RPE & goal METS by session 6, Documents in home exercise log/reports 30 min aerobic 5 day/wk by DC, Demonstrates accurate pulse taking by DC, Other additional outcome/goals: see below - Intervention & Plan Exercise Program Goals: Instruct on personal THR & RPE, Instruct on MET level & personal MET goal, Show patient to take own pulse /validate performance until accurate, Instruct on home exercise, Other additional plan/int - 30-day Reassessments 30 day Reassessments:: Progressing - THR explained - Physical Activity Home Exercise Physical Activity - Home Exercise: Safe Exercise, Warm-up, Self-monitoring, Cool-Down, Home Exercise > 30 min Daily, Sitting Time <3 hours/daily - Outcomes & Goals Outcomes/Goals: Demonstrates correct Warm-up/exercise Cool-Down (S3) if = 2.5 METs, Verbalizes symptoms of exercise intolerance by Session 3 (S3), Demonstrate safe equipment use (S3) & follows exercise prescrition (6), Other: See below - Intervention & Plan Plan/Intervention: Instruct warm-up & cool-down if exercising at > 2 METs, Instruct on symptoms of exercise intolerance & actions to take, Instruct & monitor on saf, Assess intial functional capacity & safety risk, Other See below - 30-day Reassessments 30 day Reassessments:: Progressing - safe exercise class attended Nutrition - Initial Assessment Nutrition - 30-Day Assessment - Program Goals Nutrition Program Goals: LDL <100 optimal. 100 - 129 Near optimal. 130 - 159 Borderline High. 160 - 189 High. Total Cholesterol <200 desirable. 200 - 239 Borderline High. >/= 240 High. HDL < 40 Low >/=60 High. Triglycerides <150 desirable. <199 optimal. VlDL 5 - 40. HgbA1C <7%. BMI <25 Patient has diagnosis of Hyperlipidemia (ICD E78)?: Yes - Visit Date of Assessment:: 08/14/22 Session #:: 11 - Cholesterol/Lipids (Other Core Measures) Determine presence & major risk factors that modify LDL goal: Hypertension or hypertensive medication, Low HDL cholesterol <40 mg/dL*, Family history of premature CHD in Male < 55 years: female <65 yearsFa, Age men > 45 years; women >/= 55 years Outcomes/Goals: Pt IDs own risk factors & lifestyle modifications by Session 10, Verbalizes symptoms of angina & response by session 3., Pt independently manages, Other Additional Outcomes/Goals: Intervention/Plan: Advocate for lipid panel cholesterol medication if applicable, Instruct on personal lipid levels & lipid goals/NCEP guidelines, Instruct on cholesterol, Other additional plan/int 30-day Reassessments:: Progressing - risk factors explained - Diabetes (Other Core Measures) Diabetes Type: Not Applicable - Weight Mgt (Other Care) Height: 5 ft 10 in Weight:: 80.286 kg BMI: 25.4 Diagnosis Overweight/Obesity BMI> 30% ICD-10 E66: No Diagnosis High BMI/Morbid Obesity BMI> 35% ICD-10 Z68: No Outcomes/Goals: Pt sets, maintains & shows weight loss goal & trend during rehab, Other additional outcomes/goals Intervention/Plan: Instruct on ideal BMI & set weight loss goal w/patient, Assist pt to ID & incorporate diet changes for weight loss by S9, Refer to Structured Weight Loss program as appropriate, Encourage goal of using 250-300dcal per session for weight loss, Other additional plan/interventions 30 day Reassessments:: Progressing - will attend nutrition class - Healthy Eating Habits Will attend diet classes:: Yes Outcomes/Goals:: Consume diet rich in vegs,fruits,whole grain/high fiber,fish,lean meat, Limit sat/trans fats,cholesterol & added salts & sugars, Other additional outcome/goals: Intervention/Plan:: Assess current eating habits, Other Additional plan/interventions 30-day Reassessments:: Progressing - will attend nutrition class - Education Gave educational materials for:: Signs & symptoms of hypoglycemia, Signs & symptoms of hyperglycemia, Relate diabetes to coronary artery disease, Healthy eating Nutrition - 60-Day Assessment Nutrition - 90-Day Assessment Nutrition - Final Assessment Core - Initial Assessment Core - 30-Day Assessment - Visit Date of Eval: 08/14/22 Session #:: 11 - Medication Compliance Preventative Medication(s):: Aspirin, Clopidogrel/P2Y12 inhibit, Beta rigo, Eliquis H/O mental health issues: depression, anxiety, or addiction?: No Doesn?t believe in the benefits of treatment?: No Believes medications are unnecessary or harmful?: No Has a concern about medication side effects?: No Expresses concern over the cost of medications?: No Outcomes/Goals: Verbalizes medications,desired effect & common side effects @ DC, Pt self-reports following medication regimen, Keeps card in wallet w/medications listed by DC, Other additional outcome/goals: Interventions/plans: Instruct on medication effects & side effects, Review medication list w/patient every two weeks, Instruct importance of taking meds as ordered & assist problem solving, Other additional 30-day Reassessments:: Progressing - encouraged to take meds - Tobacco Use Tobacco Use: Non-smoker Do you use smokeless tobacco?: No - Hypertension Hypertension Diagnosis:: Hypertension ICD-10 I10 Resting Blood Pressure:: 140/68 [place] [employer] Hypertension Guidelines: [place] [employer] Hypertension Guidelines. Normal BP Less than 120/80. Elevated BP 120/80. Hypertension Stage 1: BP 130-139/80-89. Hypertesnion Stage 2: BP 140 or higher/90 or higher. Hypertension Crisis: BP higher than 180/120 Peak Exercise Blood Pressure:: 140/68 Outcomes/Goals: Able to verbalize/achieve optimal blood pressure <130/80, Incorporates diet changes & exercise for blood pressure control by DC, Other additional outcomes/goals Interventions/plan: Instruct on optimal blood pressure, hypertension & medications, Instruct on effects of sodium, alcohol, stress, exercise &hypertension, Other additional plan/interventions 30 day Reassessments:: Progressing - encouraged to take meds - Tobacco Cessation Referral Smoking Cessation Referral:: No Individual Education/Counseling:: No Education Schedule Given:: Yes Core - 60-Day Assessment Core - 90 Day Assessment Core - Final Assessment Psychosocial - Initial Assess Psychosocial - 30-Day Assess - VIsit History of previous Mental disease:: No Psychosocial - 60-Day Assess Psychosocial - 90-Day Assess Psychosocial - Final Assessmen Patient Health Questionnaire 30-Day Re-eval Assessment 1. Little interest or pleasure in doing things: Not at all 2. Feeling down, depressed, or hopeless: Not at all 3. Trouble falling or staying asleep, or sleeping too much: Not at all 4. Feeling tired or having little energy: Not at all 5. Poor appetite or overeating: Not at all 6. Feeling bad about yourself -- or that you are a failure or have let yourself or your family down: Not at all 7. Trouble concentrating on things, such as reading the newspaper or watching television: Not at all 8. Moving or speaking so slowly that other people could have noticed. Or the opposite - being so fidgety or restless that you have been moving around a lot more than usual: Not at all 9. Thoughts that you would be better off , or of hurting yourself in some way: Not at all How difficult have these problems made it for you to do your work, take care of things at home, or get along with other people?: Not difficult at all Total Score: 0 Self-Efficacy 30-Day Re-eval Assessment We would like to know how confident you are in doing certain activities. Please select your confidence level for:: Select your confidence level for the following using the scale 1-10 where 1 is not at all confident and 10 is totally confident. Your score is the average of all 6 responses. Fatigue: How confident are you that you can keep the fatigue caused by your disease from interfering with the things you want to do? Select Number: 8 Physical Discomfort or Pain: How confident are you that you can keep the physical discomfort or pain of your disease from interfering with the things you want to do? Select Number: 8 Emotional Distress: How confident are you that you can keep the emotional distress caused by your disease from interfering with the things you want to do? Select Number: 8 Other Symptoms or Health Problems: How confident are you that you can keep other symptoms or health problems from interfering with the things you want to do? Select Number: 7 Different Tasks and Activities: How confident are you that you can do the different tasks and activities needed to manage your health condition so as to reduce your need to see a doctor? Select Number: 8 Medication: How confident are you that you can do things other than just taking medication to reduce how much your illness affects your everyday life? Select Number: 9 Total Score:: 8 Nutrition Survey
[2022-08-14 08:18] VITALS: BP 140/68; BMI 25.4
== END 2022-08-23 23:59 ==
LOC: CR 08:00
PROVIDERS: PCP Internal Medicine
DX: Z98.890 Other specified postprocedural states (principal); Z95.818 Presence of other cardiac implants and grafts; Z95.5 Presence of coronary angioplasty implant and graft
CPT/HCPCS: 93798

== ENCOUNTER 2022-09-23 08:00 | Outpatient (RCR) | payer MEDICARE, OTHER, SELFPAY ==
[2022-08-14 08:18] VITALS: BMI 25.4
[2022-08-24 01:35] VITALS: BP 140/68
--- NOTE | 2022-09-11 11:04 | PCM.CR.ITP ---
Nutrition - Initial Assessment Weight Mgt (Other Care) Height: 5 ft 10 in Weight:: 174 lb BMI: 25.0 Psychosocial - Initial Assess Target Goals Target Goals Patient Health Questionnaire PHQ-9 Screening 60-Day Re-eval Assessment: 1. Little interest or pleasure in doing things: Not at all 2. Feeling down, depressed, or hopeless: Not at all 3. Trouble falling or staying asleep, or sleeping too much: Not at all 4. Feeling tired or having little energy: Not at all 5. Poor appetite or overeating: Not at all 6. Feeling bad about yourself -- or that you are a failure or have let yourself or your family down: Not at all 7. Trouble concentrating on things, such as reading the newspaper or watching television: Not at all 8. Moving or speaking so slowly that other people could have noticed. Or the opposite - being so fidgety or restless that you have been moving around a lot more than usual: Not at all 9. Thoughts that you would be better off , or of hurting yourself in some way: Not at all How difficult have these problems made it for you to do your work, take care of things at home, or get along with other people?: Not difficult at all Total Score: 0 Self-Efficacy 6-Item Scale 60-Day Re-eval Assessment: We would like to know how confident you are in doing certain activities. Please select your confidence level for: Fatigue Select Number: 8 Physical Discomfort or Pain Select Number: 8 Emotional Distress Select Number: 8 Other Symptoms or Health Problems Select Number: 8 Different Tasks and Activities Select Number: 8 Medication Select Number: 8 Total Score:: 8 Nutrition Survey Nutrition Survey Instructions Scoring Instructions Exercise - 60-day Assessment Visit Date of Eval: 09/11/22 Session #:: 23 Physician Prescribed Exercise Modalities: Treadmill, Airdyne and NuStep Frequency: 3x/week for 12 weeks [36 sessions] Intensity: 60-80% of age predicted maximum heart rate reserve Duration: 30 - 45 minutes Current METSs:: 5 Target Heart Rate:: 92-106 Current RPE:: 12 Maximum Excercise HR:: 88 Resting Blood Pressure: 120/64 Maximum Exercise Blood Pressure: 150/70 EKG Type: SB to SR with rare PAC's Outcomes & Goals Goals:: Verbalizes understanding of THR, RPE & goal METS by session 6, Documents in home exercise log/reports 30 min aerobic 5 day/wk by DC, Demonstrates accurate pulse taking by DC and Other additional outcome/goals: see below Intervention & Plan Exercise Program Goals: Instruct on personal THR & RPE, Instruct on MET level & personal MET goal, Show patient to take own pulse /validate performance until accurate, Instruct on home exercise and Other additional plan/int 30-day Reassessments 30 day Reassessments:: Progressing Reassessment Notes & Comments:: THR explained Physical Activity Home Exercise Physical Activity - Home Exercise: Safe Exercise, Warm-up, Self-monitoring, Cool-Down, Home Exercise > 30 min Daily and Sitting Time <3 hours/daily Outcomes & Goals Outcomes/Goals: Demonstrates correct Warm-up/exercise Cool-Down (S3) if = 2.5 METs, Verbalizes symptoms of exercise intolerance by Session 3 (S3), Demonstrate safe equipment use (S3) & follows exercise prescrition (6) and Other: See below Intervention & Plan Plan/Intervention: Instruct warm-up & cool-down if exercising at > 2 METs, Instruct on symptoms of exercise intolerance & actions to take, Instruct & monitor on saf, Assess intial functional capacity & safety risk and Other See below 30-day Reassessments 30 day Reassessments:: Progressing Reassessment Notes & Comments:: cool down encouraged Nutrition - 30-Day Assessment Weight Mgt (Other Care) Height: 5 ft 10 in Weight:: 174 lb BMI: 25.0 Nutrition - 60-Day Assessment Program Goals Nutrition Program Goals Patient has diagnosis of Hyperlipidemia (ICD E78)?: Yes Visit Date of Eval: 09/11/22 Session #:: 23 Cholesterol/Lipids (Other Core Measures) Determine presence & major risk factors that modify LDL goal: Hypertension or hypertensive medication, Low HDL cholesterol <40 mg/dL*, Family history of premature CHD in Male < 55 years: female <65 yearsFa and Age men > 45 years; women >/= 55 years Outcomes/Goals: Pt IDs own risk factors & lifestyle modifications by Session 10, Verbalizes symptoms of angina & response by session 3., Pt independently manages and Other Additional Outcomes/Goals: Intervention/Plan: Advocate for lipid panel cholesterol medication if applicable, Instruct on personal lipid levels & lipid goals/NCEP guidelines, Instruct on cholesterol and Other additional plan/int 30-day Reassessments:: Progressing Reassessment Notes & Comments:: risk factors reviewed Diabetes (Other Core Measures) Diabetes Type: Not Applicable Weight Mgt (Other Care) Height: 5 ft 10 in Weight:: 174 lb BMI: 25.0 Diagnosis Overweight/Obesity BMI> 30% ICD-10 E66: No Diagnosis High BMI/Morbid Obesity BMI> 35% ICD-10 Z68: No Outcomes/Goals: Pt sets, maintains & shows weight loss goal & trend during rehab and Other additional outcomes/goals Intervention/Plan: Instruct on ideal BMI & set weight loss goal w/patient, Assist pt to ID & incorporate diet changes for weight loss by S9, Refer to Structured Weight Loss program as appropriate, Encourage goal of using 250-300dcal per session for weight loss and Other additional plan/interventions 30 day Reassessments:: Met Healthy Eating Habits Will attend diet classes:: Yes Outcomes/Goals:: Consume diet rich in vegs,fruits,whole grain/high fiber,fish,lean meat, Limit sat/trans fats,cholesterol & added salts & sugars and Other additional outcome/goals: Intervention/Plan:: Assess current eating habits and Other Additional plan/interventions 30-day Reassessments:: Met Education Gave educational materials for:: Signs & symptoms of hypoglycemia, Signs & symptoms of hyperglycemia, Relate diabetes to coronary artery disease and Healthy eating Core - 60-Day Assessment Visit Date of Eval: 09/11/22 Session #:: 23 Medication Compliance Preventative Medication(s):: Aspirin, Clopidogrel/P2Y12 inhibit, Beta rigo and Eliquis H/O mental health issues: depression, anxiety, or addiction?: No Doesn?t believe in the benefits of treatment?: No Believes medications are unnecessary or harmful?: No Has a concern about medication side effects?: No Expresses concern over the cost of medications?: No Outcomes/Goals: Verbalizes medications,desired effect & common side effects @ DC, Pt self-reports following medication regimen, Keeps card in wallet w/medications listed by DC and Other additional outcome/goals: Interventions/plans: Instruct on medication effects & side effects, Review medication list w/patient every two weeks, Instruct importance of taking meds as ordered & assist problem solving and Other additional 30-day Reassessments:: Progressing Reassessment Notes & Comments:: pt encouraged to take his meds Tobacco Use Tobacco Use: Non-smoker Hypertension Hypertension Diagnosis:: Hypertension ICD-10 I10 Resting Blood Pressure:: 120/64 [place] [employer] Hypertension Guidelines Peak Exercise Blood Pressure:: 150/70 Outcomes/Goals: Able to verbalize/achieve optimal blood pressure <130/80, Incorporates diet changes & exercise for blood pressure control by DC and Other additional outcomes/goals Interventions/plan: Instruct on optimal blood pressure, hypertension & medications, Instruct on effects of sodium, alcohol, stress, exercise &hypertension and Other additional plan/interventions 30 day Reassessments:: Progressing Reassessment Notes & Comments:: pt's BP meds have been adjusted per pt Tobacco Cessation Referral Smoking Cessation Referral:: No Individual Education/Counseling:: No Education Schedule Given:: Yes Psychosocial - 30-Day Assess Target Goals Target Goals Psychosocial - 60-Day Assess VIsit Date of Eval: 09/11/22 Session #:: 23 History of previous Mental disease:: No Target Goals Target Goals Psychosocial - 90-Day Assess Target Goals Target Goals Psychosocial - Final Assessmen Target Goals Target Goals Nutrition - 90-Day Assessment Weight Mgt (Other Care) Height: 5 ft 10 in Weight:: 174 lb BMI: 25.0 Nutrition - Final Assessment Weight Mgt (Other Care) Height: 5 ft 10 in Weight:: 174 lb BMI: 25.0
[2022-09-11 11:10] VITALS: BP 120/64
[2022-09-11 11:24] VITALS: BP 120/64; BMI 25.0
== END 2022-09-23 23:59 ==
LOC: CR 08:00
PROVIDERS: PCP Internal Medicine
DX: Z95.5 Presence of coronary angioplasty implant and graft (principal); Z98.890 Other specified postprocedural states; Z95.818 Presence of other cardiac implants and grafts
CPT/HCPCS: 93798

== ENCOUNTER 2022-09-27 22:54 | Emergency (ER) | payer MEDICARE, OTHER, SELFPAY ==
[2022-09-11 11:24] VITALS: BMI 25.0
[2022-09-27 22:55] VITALS: BP 155/91; PULSE 108; PULSE 72; RESP 18; TEMP 36.6; O2SAT 98; BMI 25.2
[2022-09-27 23:17] VITALS: BP 171/71
--- NOTE | 2022-09-27 23:29 | EKG12_ITS ---
Test Reason : CP Blood Pressure : / mmHG Vent. Rate : 122 BPM Atrial Rate : 150 BPM P-R Int : 000 ms QRS Dur : 130 ms QT Int : 348 ms P-R-T Axes : 000 -60 108 degrees QTc Int : 495 ms Atrial fibrillation with premature ventricular or aberrantly conducted complexes Left axis deviation Non-specific intra-ventricular conduction block T wave abnormality, consider lateral ischemia Abnormal ECG Confirmed by SHARA LADD, INDIO ([id number]), food expeditor RAPHAEL LEVINE ([id number]) on 09/30/2022 1:14:21 PM Referred By: GEMA Confirmed By:INDIO OLMEDO MD
[2022-09-27 23:35] VITALS: BP 126/76; PULSE 69; RESP 16; O2SAT 98
--- NOTE | 2022-09-27 23:46 | EKG12_ITS ---
Test Reason : RHYTHM CONVERSION Blood Pressure : / mmHG Vent. Rate : 071 BPM Atrial Rate : 071 BPM P-R Int : 166 ms QRS Dur : 130 ms QT Int : 430 ms P-R-T Axes : 032 -53 010 degrees QTc Int : 467 ms Sinus rhythm with occasional Premature ventricular complexes Left axis deviation Left ventricular hypertrophy with QRS widening Abnormal ECG Confirmed by SHARA LADD, INDIO ([id number]), research editor RAPHAEL LEVINE ([id number]) on 09/30/2022 1:14:37 PM Referred By: GEMA Confirmed By:INDIO OLMEDO MD
[2022-09-28] VITALS: BP 131/67; BP 133/69; PULSE 59; RESP 14; RESP 16; O2SAT 98
[2022-09-28 00:07] LABS: Absolute Lymphocyte Count 1.95 X10^3/uL (0.83-4.51); Absolute Neutrophil Count 4.1 X10^3/uL (2.0-7.7); Basophil# 0.06 X10^3/uL; Basophil% 0.8 % (0-1); Eosinophil# 0.42 X10^3/uL; Eosinophils% 5.6 % (0-5); Hematocrit 45.6 % (40-54); Hemoglobin 15.3 g/dL (13.0-16.5); Lymphocyte # 1.95 X10^3/ul (0.83-4.51); Lymphocyte % 26.1 % (19-41); Mean Corp Hgb Conc 33.6 g/dL (32-36); Mean Corpuscular Volume 92.3 fL (80-94); Mean Platelet Vol. 10.5 fl (6.2-12.0); Monocyte# 0.84 X10^3/uL; Monocyte% 11.2 % (0-10); NRBC Flagged by Analyzer 0 % (0-5); Neutrophil # 4.12 X10^3/uL (2.7-7.7); Neutrophil % 55.1 % (47-70); Platelet Count 200 K/mm3 (150-450); RBC Distribution Width CV 15.1 % (11.6-14.6); RBC Distribution Width SD 51.6 fl (35.1-43.9); Red Blood Count 4.94 M/mm3 (4.6-6.2); White Blood Count 7.5 K/mm3 (4.4-11.0)
[2022-09-28 00:14] LABS: Anion Gap 6 (5-15); BUN 23 mg/dL (7-18); BUN/Creat Ratio 19.8 RATIO (10-20); Calcium,Total 9.2 mg/dL (8.5-10.1); Chloride 110 mmol/L (98-107); Creatinine, Serum 1.16 mg/dL (0.70-1.30); EST Glomerular Filtration Rate 65 mL/min (>60); Est Glom Filt Rate - Afr Amer 78 mL/min (>60); Estimated Creatinine Clearance 53.32 ml/min; Glucose 120 mg/dL (74-106); Magnesium 2.2 mg/dL (1.6-2.6); Potassium 3.8 mmol/L (3.5-5.1); Sodium Level 142 mmol/L (136-145); Thyroid Stim Hormone (TSH) 1.43 uIU/mL (0.358-3.74)
[2022-09-28 00:51] VITALS: BP 146/72; PULSE 62; RESP 16; O2SAT 98
--- NOTE | 2022-09-28 00:51 | EDS_ITS ---
HPI History of Present Illness Chief Complaint: Chest Pain Informant: patient and spouse/S.O. Narrative Narrative: Patient is a 77-year-old male with past medical history of coronary artery disease as well as proximal atrial fibrillation currently on Eliquis. He states he was at home today resting after performing cardiac rehab. He states he then felt some mild chest discomfort and looked down and his smart watch and noticed that his heart rate and blood pressure were elevated. He states that he waited a little while at home to see if symptoms would improve and they did not do so so therefore he comes in for evaluation. Patient reports he is on Eliquis because of a past medical history of A-fib but is only been at 1 time previously. [facility] Medical History Atherosclerosis of coronary artery bypass graft of [place] heart without angina pectoris Atherosclerotic heart disease of [place] coronary artery without angina pectoris Elevated PSA Essential hypertension Hyperlipidemia Hypothyroidism Incontinence of urine Nonrheumatic mitral (valve) insufficiency Nonrheumatic mitral (valve) prolapse Old inferolateral myocardial infarction Prostate cancer Urgency-frequency syndrome Home Medications multivitamin with folic acid 400 mcg tablet 1 tab PO DAILY SUPPLEMENT 01/14/14 [History Last Taken 05/02/22] latanoprost 0.005 % eye drops 1 drp EACH EYE QHS EYES 01/03/17 [History Last Taken 05/02/22] omega-3 fatty acids-fish oil 684 mg-1,200 mg capsule,delayed release 1 ea PO DAILY SUPPLEMENT 01/03/17 [History Last Taken 05/02/22] cinnamon bark 500 mg capsule 500 mg PO DAILY 10/07/18 [History Last Taken 05/02/22] magnesium oxide 500 mg capsule 500 mg PO DAILY 10/07/18 [History Last Taken 05/02/22] vitamin B complex 1 tab PO DAILY 10/07/18 [History Last Taken 05/02/22] nitroglycerin 0.4 mg sublingual tablet (Nitrostat) 0.4 mg sublingual Q5M PRN chest pain #25 tabs 12/07/19 [Rx Last Taken Unknown] epinephrine 0.3 mg/0.3 mL injection, auto-injector 0.3 mg IM X1 PRN Allergic Reaction 09/20/21 [History Last Taken Unknown] cholecalciferol (vitamin D3) 62.5 mcg (2,500 unit) capsule 125 mcg PO DAILY 05/07/22 [History Last Taken Unknown] apixaban 5 mg tablet (Eliquis) 5 mg PO BID #60 tabs 07/02/22 [Rx Last Taken Unknown] metoprolol tartrate 25 mg tablet 12.5 mg (1/2 x 25 mg) PO BID BP #90 tabs 07/10/22 [Rx Last Taken Unknown] coenzyme Q10 100 mg tablet 100 mg PO DAILY 08/16/22 [History Last Taken Unknown] rosuvastatin 5 mg tablet 5 mg PO QHS cholesterol #90 tabs 08/16/22 [Rx Last Taken Unknown] clopidogrel 75 mg tablet 75 mg PO DAILY #90 tabs 09/06/22 [Rx Last Taken Unknown] levothyroxine 100 mcg tablet 100 mcg PO DAILY THYROID #90 tabs 09/06/22 [Rx Last Taken Unknown] amlodipine 5 mg tablet 5 mg PO DAILY #30 tabs 09/23/22 [Rx Last Taken Unknown] Allergy/AdvReac Type Severity Reaction Status Date / Time bee venom protein (honey bee) Allergy Unknown hives/anaph Verified 08/16/22 10:41 ylaxis ramipril Allergy Angioedema Verified 08/16/22 10:41 Family History Father , of [place]'s disease Rohini's disease Mother , Age 60 of [place] CAD (coronary artery disease) Myocardial infarction Brother CAD (coronary artery disease) history of cabg Brother CAD (coronary artery disease) Stented coronary artery Diabetes Sister CAD (coronary artery disease) Myocardial infarction Hypertension Surgical History H/O coronary artery bypass surgery (11/1994) H/O prostatectomy History of coronary artery stent placement (09/14/21) History of left heart catheterization (04/30/21) S/P mitral valve clip implantation Status post mitral valve repair (06/26/22) Social History Smoking Status: Never smoker alcohol intake: current alcohol intake frequency: other Alcohol type: beer and wine caffeine: Yes Type: coffee Number of servings: 3 ROS ROS ED Constitutional Constitutional ED: Denies chills or fever(s) Eyes Eyes: Denies change in vision ENT ENT ED: Denies sore throat Cardiovascular Cardiovascular: Reports chest pain, palpitations and racing heartbeat Respiratory/Chest Respiratory/Chest: Denies cough or dyspnea Gastrointestinal Gastrointestinal: Denies abdominal pain, diarrhea, nausea or vomiting Genitourinary Genitourinary ED: Denies dysuria Musculoskeletal Musculoskeletal: Denies myalgias Integumentary Denies rash Neurologic Neurologic: Denies headache(s) Hematologic/Lymphatic Hematologic/Lymphatic: Reports easy bleeding and easy bruising EXAM Physical Exam Const Vital Signs: 09/27/22 22:55 09/27/22 22:55 09/27/22 23:17 Temperature 97.8 F Temperature Source Temporal Pulse Rate 108 H 72 Respiratory Rate 18 Blood Pressure 155/91 H 171/71 H Blood Pressure Mean 112 104 Pulse Ox 98 Oxygen Delivery Method Room Air 09/27/22 23:35 09/28/22 00:00 09/28/22 00:00 Temperature Temperature Source Pulse Rate 69 59 L 59 L Respiratory Rate 16 14 16 Blood Pressure 126/76 H 133/69 H 131/67 H Blood Pressure Mean 92 90 88 Pulse Ox 98 98 98 Oxygen Delivery Method Room Air Room Air Room Air Positive well nourished and well developed General Appearance ED: well developed HEENT HEENT Narrative: Normocephalic atraumatic Eyes PERRL and EOMs intact bilaterally General Eye ED: Negative for scleral icterus Neck supple and no JVD Resp normal respiratory effort and clear to auscultation bilaterally Cardio regular rate and regular rhythm Rate: other Other Details: Radial pulses are equal and symmetric GI normal to inspection, nondistended, normoactive bowel sounds, non-tender and non-distended GI Narrative: No voluntary guarding or rigidity no pulsatile mass or fluid wave Auscultation: normoactive bowel sounds Palpation: soft Extremity normal to inspection Extremity Narrative: No asymmetric edema no pitting edema negative Homans' sign bilaterally Neuro oriented x3 and CN's II-XII intact bilaterally Sensorium / Orientation: alert Psych mental status grossly normal Skin no rashes or lesions noted General Skin Exam: Negative for jaundice MDM MDM MDM Narrative Medical decision making narrative: Patient presented to the ER and atrial fibrillation with rapid ventricular response as documented on EKG. he does have a remote history of this and is on Eliquis to protect from clot/stroke. Prior to me entering the room the patient underwent spontaneous cardioversion to normal sinus. In order to ensure there is no cause of the recurrent A-fib such as anemia hypomagnesemia hypokalemia or thyroid dysfunction basic blood work was obtained. As the patient had no chest pain or abnormal sensation after spontaneous cardioversion I do not feel need for troponin as EKG did not show any signs of ischemia. Blood work revealed no clinically significant finding and patient remained in sinus rhythm for the entire ER stay. Therefore at this time as patient is underwent spontaneous cardioversion and has remained in sinus rhythm and lab work shows no need for reversible causes such as hypokalemia or hypomagnesemia patient is otherwise safe for discharge. History & Record Review Discussion w/independent historian: Patient and Significant other Lab Data Attestation: I reviewed the patient's lab results. Labs: Laboratory Results - last 24 hr 09/27/22 23:40 WBC 7.5 RBC 4.94 Hgb 15.3 Hct 45.6 MCV 92.3 MCH 31.0 MCHC 33.6 RDW Std Deviation 51.6 H RDW Coeff of Darian 15.1 H Plt Count 200 MPV 10.5 Immature Gran % (Auto) 1.200 H Neut % (Auto) 55.1 Lymph % (Auto) 26.1 [place] % (Auto) 11.2 H Eos % (Auto) 5.6 H Baso % (Auto) 0.8 Absolute Neuts (auto) 4.1 Absolute Lymphs (auto) 1.95 Nucleated RBC % 0 Sodium 142 Potassium 3.8 Chloride 110 H Carbon Dioxide 26.0 Anion Gap 6 BUN 23 H Creatinine 1.16 Estim Creat Clear Calc 53.32 Est GFR (MDRD) Af Amer 78 Est GFR (MDRD) Non-Af 65 BUN/Creatinine Ratio 19.8 Glucose 120 H Calcium 9.2 Magnesium 2.2 TSH 1.43 Discharge Plan Triage Chief Complaint: Chest Pain ED Provider: Luis Alberto Braun Dx/Rx/DC Orders Clinical Impression: Paroxysmal A-fib, Essential hypertension, 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 Instructions: AFib Dc Prescriptions: No Action cholecalciferol (vitamin D3) 62.5 mcg (2,500 unit) capsule 125 mcg PO DAILY coenzyme Q10 100 mg tablet 100 mg PO DAILY multivitamin with folic acid 1 TABLET tablet 1 tab PO DAILY latanoprost 1 DROP bottle 1 drp EACH EYE QHS omega-3 fatty acids-fish oil 1 EACH capsule,delayed release(DR/EC) 1 ea PO DAILY vitamin B complex 1 EACH tablet 1 tab PO DAILY cinnamon bark 500 MG capsule 500 mg PO DAILY magnesium oxide 500 MG capsule 500 mg PO DAILY epinephrine 0.3 mg/0.3 mL auto-injector 0.3 mg IM X1 PRN (Reason: Allergic Reaction) nitroglycerin [Nitrostat] 0.4 mg tablet, sublingual 0.4 mg SUBLINGUAL Q5M PRN (Reason: chest pain) Qty: 25 3RF Eliquis 5 mg tablet 5 mg PO BID Qty: 60 11RF metoprolol tartrate 25 mg tablet 12.5 mg PO BID Qty: 90 3RF rosuvastatin 5 mg tablet 5 mg PO QHS Qty: 90 3RF clopidogrel 75 mg tablet 75 mg PO DAILY Qty: 90 3RF levothyroxine 100 mcg tablet 100 mcg PO DAILY Qty: 90 3RF amlodipine 5 mg tablet 5 mg PO DAILY Qty: 30 11RF Primary Care Provider: Shira Borjas Referrals: Shira Borjas DO [Primary Care Provider] - Activity Restrictions/Additional Instructions: You spontaneously went into atrial fibrillation but then also spontaneously converted to normal sinus rhythm. 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 Please discuss with your streetcar repairer helper the potential action plan if you develop frequent recurrent A-fib bouts. If you have any further concerns or worsening of symptoms or the A-fib returns and will not resolve after a short while at home please return for repeat evaluation Disposition Disposition: Home, Self Care Discharge Date/Time: 09/28/22 00:58
== END 2022-09-28 00:58 | disposition home or self-care (01) ==
PROVIDERS: Emergency Provider Emergency Medicine; PCP Internal Medicine; Visit Provider Emergency Medicine
DX: I48.0 Paroxysmal atrial fibrillation (principal); I10 Essential (primary) hypertension; E78.5 Hyperlipidemia, unspecified; I25.10 Atherosclerotic heart disease of native coronary artery without angina pectoris; Z79.01 Long term (current) use of anticoagulants; Z95.1 Presence of aortocoronary bypass graft
CPT/HCPCS: 80048; 83735; 84443; 85025; 93005; 99284; A4216

== ENCOUNTER 2022-10-09 08:00 | Outpatient (RCR) | payer MEDICARE, OTHER, SELFPAY ==
[2022-09-11 11:24] VITALS: BMI 25.0
[2022-09-24 00:21] VITALS: BP 120/64; BP 140/68
== END 2022-10-24 23:59 ==
LOC: CR 08:00
PROVIDERS: PCP Internal Medicine
DX: Z95.5 Presence of coronary angioplasty implant and graft (principal); Z98.890 Other specified postprocedural states; Z95.818 Presence of other cardiac implants and grafts
CPT/HCPCS: 93798

== ENCOUNTER → 2023-02-05 | Outpatient (CLI) | payer MEDICARE, OTHER, SELFPAY ==
[2022-09-11 11:24] VITALS: BMI 25.0
[2023-02-05 12:07] LABS: AST(SGOT) 27 U/L (15-37); Alanine Aminotransfer ALT/SGPT 37 U/L (16-61); Albumin, Serum 3.8 g/dL (3.2-5.0); Alkaline Phosphatase 48 U/L (45-117); Bilirubin, Direct 0.31 mg/dL (0.00-0.30); Cholesterol 132 mg/dL (200); Globulin 3.6 g/dL (2.2-4.2); High Density Lipoprotein 39 mg/dL; Protein, Total 7.4 g/dL (6.4-8.2); Triglycerides 122 mg/dL; Very Low Density Lipoprotein 24 mg/dL (5-40)
== END | disposition home or self-care (01) ==
LOC: LAB 10:24
PROVIDERS: PCP Internal Medicine; Referring Provider Internal Medicine Cardiovascular Disease; Visit Provider Internal Medicine Cardiovascular Disease
DX: E78.00 Pure hypercholesterolemia, unspecified (principal)
CPT/HCPCS: 36415; 80061; 80076

== ENCOUNTER → 2023-06-30 | Outpatient (CLI) | payer MEDICARE, OTHER, SELFPAY ==
[2022-09-11 11:24] VITALS: BMI 25.0
--- NOTE | 2023-06-30 07:47 | ECHOD_ITS ---
Reason For Study: OTHER Procedure This was a 2D Doppler, Color Flow transthoracic echocardiogram. Exam performed in department. Left Ventricle Normal LV size. Left ventricular systolic function is normal. The estimated ejection fraction is 60 %. Stage 1 diastolic dysfunction. No regional wall motion abnormalities noted. Right Ventricle Normal RV size. Normal systolic function. Atria The left atrium is mildly enlarged. The right atrium is mildly enlarged. Mitral Valve Percutaneous [id number] mitral valve clip repair with mild residual regurgitation. Mean transmitral valve gradient 2 mmHg. Peak transmitral valve gradient 6 mmHg. Tricuspid Valve Normal tricuspid valve. Mild (1+) tricuspid valve insufficiency. Pulmonary artery systolic pressure is 36 mmHg. Aortic Valve Trisinus/trileaflet aortic valve. Mild focal aortic valve calcification. Mild (1+) aortic valve insufficiency. Pulmonic Valve Normal pulmonic valve. Great Vessels Normal aortic root. The pulmonary artery is normal size. Inferior vena cava collapse with respiration. Pericardium/Pleural No pericardial effusion. MMode/2D Measurements & Calculations LVIDd: 5.0 cm IVSd: 1.1 cm Ao root diam: 3.5 cm LVIDs: 3.6 cm LVPWd: 1.3 cm RVDd: 4.8 cm FS: 28.2 % LAV(MOD-bp): 71.9 ml LVAd ap4: 30.4 cm2 SV(MOD-sp4): 56.4 ml LAV(MOD-bp) Indexed: 36.5 ml/m2 LVLd ap4: 7.5 cm LAV(MOD-sp2): 69.1 ml EDV(MOD-sp4): 96.9 ml LAV(MOD-sp4): 68.8 ml EDV(sp4-el): 104.0 ml LVAs ap4: 18.1 cm2 LVLs ap4: 6.5 cm ESV(MOD-sp4): 40.6 ml ESV(sp4-el): 42.7 ml EF(MOD-sp4): 58.2 % EF(sp4-el): 58.9 % SV(sp4-el): 61.3 ml LA A4 area: 24.5 cm2 LA dimension(2D): 4.7 cm RA A4 area: 27.4 cm2 TAPSE: 2.2 cm Time Measurements MV dec time: 0.66 sec Doppler Measurements & Calculations MV E max bill: 72.6 cm/sec Lat Peak E' Bill: 5.4 cm/sec Med Peak E' Bill: 5.6 cm/sec MV A max bill: 123.0 cm/sec E/E' lat: 13.4 E/E' med: 13.0 MV E/A: 0.59 MV V2 max: 121.8 cm/sec Ao V2 max: 121.4 cm/sec MV max P.9 mmHg MV dec slope: 123.4 cm/sec2 Ao max P.9 mmHg MV V2 mean: 68.7 cm/sec Ao V2 mean: 78.3 cm/sec MV mean P.3 mmHg Ao mean P.9 mmHg MV V2 VTI: 59.6 cm Ao V2 VTI: 32.5 cm AV (velocity ratio): 0.73 AI max bill: 368.5 cm/sec LV V1 max: 90.6 cm/sec PI end-d bill: 65.6 cm/sec AI max P.3 mmHg LV V1 max P.3 mmHg LV V1 mean P.6 mmHg AI dec slope: 133.4 cm/sec2 LV V1 mean: 58.8 cm/sec AI P1/2t: 809.2 msec LV V1 VTI: 23.8 cm TR max bill: 286.2 cm/sec TR max P.8 mmHg ECHO/Echo Complete Interpretation Summary Percutaneous cesg-sy-hjgp mitral valve clip repair with mild residual regurgita tion. Normal LV size. Left ventricular systolic function is normal. The estimated ejection fraction is 60 %. Stage 1 diastolic dysfunction. The left atrium is mildly enlarged. Mean transmitral valve gradient 2 mmHg. Peak transmitral valve gradient 6 mmHg. Ordering Physician: Dax Rodriguez Referring Physician: Dax Rodriguez Performed By: eKlsy Chapman RCS
== END | disposition home or self-care (01) ==
LOC: CVS 07:46
PROVIDERS: PCP Internal Medicine; Referring Provider Internal Medicine Cardiovascular Disease; Visit Provider Internal Medicine Cardiovascular Disease
DX: Z98.890 Other specified postprocedural states (principal); Z95.818 Presence of other cardiac implants and grafts
CPT/HCPCS: 93306

== ENCOUNTER → 2023-07-18 | Outpatient (CLI) | payer MEDICARE, OTHER, SELFPAY ==
[2022-09-11 11:24] VITALS: BMI 25.0
[2023-07-18 11:59] LABS: Mucous, Urine 0 SEEN /hpf (<or=2+)
[2023-07-18 12:45] LABS: Absolute Lymphocyte Count 1.78 X10^3/uL (0.83-4.51); Absolute Neutrophil Count 4.8 X10^3/uL (2.0-7.7); Basophil# 0.04 X10^3/uL; Basophil% 0.5 % (0-1); Eosinophil# 0.32 X10^3/uL; Eosinophils% 4.2 % (0-5); Hematocrit 46.3 % (40-54); Hemoglobin 15.3 g/dL (13.0-16.5); Lymphocyte # 1.78 X10^3/ul (0.83-4.51); Lymphocyte % 23.2 % (19-41); Mean Corpuscular Hgb 31.6 pg (27.0-32.0); Mean Corpuscular Volume 95.7 fL (80-94); Mean Platelet Vol. 10.7 fl (6.2-12.0); Monocyte# 0.73 X10^3/uL; Monocyte% 9.5 % (0-10); NRBC Flagged by Analyzer 0 % (0-5); Neutrophil # 4.77 X10^3/uL (2.7-7.7); Neutrophil % 62.2 % (47-70); Platelet Count 211 K/mm3 (150-450); RBC Distribution Width CV 13.5 % (11.6-14.6); RBC Distribution Width SD 47.9 fl (35.1-43.9); Red Blood Count 4.84 M/mm3 (4.6-6.2); White Blood Count 7.7 K/mm3 (4.4-11.0)
[2023-07-18 13:25] LABS: ALB/GLOB Ratio 1.1 RATIO (0.9-2.4); AST(SGOT) 25 U/L (15-37); Alanine Aminotransfer ALT/SGPT 28 U/L (16-61); Albumin, Serum 3.5 g/dL (3.2-5.0); Alkaline Phosphatase 45 U/L (45-117); Anion Gap 5 (5-15); BUN 20 mg/dL (7-18); BUN/Creat Ratio 16.7 RATIO (10-20); Bilirubin, Direct 0.29 mg/dL (0.00-0.30); Calcium,Total 8.7 mg/dL (8.5-10.1); Chloride 111 mmol/L (98-107); Cholesterol 124 mg/dL (200); EST Glomerular Filtration Rate 62 mL/min (>60); Est Glom Filt Rate - Afr Amer 75 mL/min (>60); Globulin 3.2 g/dL (2.2-4.2); Glucose 98 mg/dL (74-106); High Density Lipoprotein 40 mg/dL; Potassium 4.1 mmol/L (3.5-5.1); Protein, Total 6.7 g/dL (6.4-8.2); Sodium Level 139 mmol/L (136-145); Thyroid Stim Hormone (TSH) 1.37 uIU/mL (0.358-3.74); Triglycerides 110 mg/dL; Very Low Density Lipoprotein 22 mg/dL (5-40)
[2023-07-18 13:48] LABS: Color, Urine Yellow (Yellow); Glucose, Dipstick Normal (Normal); Ketone-Dipstick Negative (Negative); Leukocyte Esterase-Dipstick 25 /ul (Negative); Nitrite-Dipstick Negative (Negative); Occult Blood-Urine 250 /ul (Negative); Protein-Dipstick 30 mg/dl (Negative); Urine Bilirubin Dipstick Negative (Negative); Urine Clarity Clear (Clear); Urine Urobilinogen Normal (Normal)
[2023-07-18 14:10] LABS: Microalbumin,Random Urine 60.8 mg/L (NO RANGE EST.)
[2023-07-18 14:43] LABS: Bacteria 1+ /hpf (None Seen); Red Blood Cells-Urine 25-50 SEEN /hpf (0-5); Squamous Epithelial Cells - UA 0-5 SEEN /hpf (0-5); White Blood Cells 0-5 SEEN /hpf (0-5)
== END | disposition home or self-care (01) ==
LOC: LAB 11:49
PROVIDERS: PCP Internal Medicine; Referring Provider Nurse Practitioner Gerontology; Visit Provider Internal Medicine
DX: E03.9 Hypothyroidism, unspecified (principal); I10 Essential (primary) hypertension; E78.00 Pure hypercholesterolemia, unspecified
CPT/HCPCS: 36415; 80053; 80061; 81001; 82043; 82248; 82570; 84443; 85025

== ENCOUNTER → 2023-08-18 | Outpatient (CLI) | payer MEDICARE, OTHER, SELFPAY ==
[2022-09-11 11:24] VITALS: BMI 25.0
[2023-08-18 12:53] LABS: PSA,Total- Diagnostic < 0.01 ng/mL (0.0-4.0)
== END | disposition home or self-care (01) ==
PROVIDERS: PCP Internal Medicine; Referring Provider Urology; Visit Provider Urology
DX: C61 Malignant neoplasm of prostate (principal)
CPT/HCPCS: 36415; 84153

== ENCOUNTER → 2023-09-04 | Outpatient (CLI) | payer MEDICARE, OTHER, SELFPAY ==
[2022-09-11 11:24] VITALS: BMI 25.0
--- NOTE | 2023-09-04 07:07 | CT_ITS ---
STUDY: CT ABDOMEN AND PELVIS WITH CONTRAST REASON FOR EXAM: Male, 78 years old. MALIGNANT NEOPLASM OF PROSTATE. Microscopic hematuria. RADIATION DOSAGE (If Supplied By Facility): CTDIvol = ( 13.8 ) mGy, DLP = ( 760.55 ) mGycm TECHNIQUE: Transaxial images were obtained from the dome of the diaphragm to the symphysis pubis without oral contrast. IV 100mL Isovue-370 was administered. Sagittal and coronal images were reconstructed. Individualized dose optimization techniques were used for this CT. COMPARISON: Comparison is made with prior study dated May 03, 2022. FINDINGS: Large hiatal hernia. Prior midline sternotomy and mitral valve replacement. Normal liver. Normal gallbladder and extrahepatic biliary system. Normal spleen. Normal pancreas. Normal bilateral adrenal glands. Normal right kidney. Left parapelvic renal cysts. Normal visualized stomach. Normal small intestine. Large amount of fecal material is seen in the left hemicolon. The appendix is visualized and appears normal. There is diffuse atherosclerotic calcification of the abdominal aorta, without a demonstrated aneurysm. Normal inferior vena cava. Normal retroperitoneum. The urinary bladder is empty. The patient is status post prostatectomy. Normal abdominal wall. There are diffuse degenerative changes of the visualized lumbar spine. Levoconvex scoliosis. CT/Abdomen/Pelvis WITH Contrast IMPRESSION: Stable left parapelvic renal cysts. Large hiatal hernia. Status post prostatectomy. Electronically Signed: Babak Samuels MD at 10:02 EDT ,
[2023-09-04 07:34] LABS: CREATININE FINGERSTICK < 1.0 mg/dL (0.70-1.30); EGFR FINGERSTICK > 60.0000 mL/min (>60)
== END | disposition home or self-care (01) ==
LOC: CT 07:06
PROVIDERS: PCP Internal Medicine; Referring Provider Urology; Visit Provider Urology
DX: C61 Malignant neoplasm of prostate (principal)
CPT/HCPCS: 74177; Q9967

== ENCOUNTER → 2023-10-30 | Outpatient (CLI) | payer MEDICARE, OTHER, SELFPAY ==
[2022-09-11 11:24] VITALS: BMI 25.0
[2023-10-30 11:11] LABS: AST(SGOT) 24 U/L (15-37); Alanine Aminotransfer ALT/SGPT 32 U/L (16-61); Albumin, Serum 3.6 g/dL (3.2-5.0); Alkaline Phosphatase 52 U/L (45-117); Anion Gap 3 (5-15); BUN 20 mg/dL (7-18); BUN/Creat Ratio 17.1 RATIO (10-20); Bilirubin, Direct 0.35 mg/dL (0.00-0.30); Calcium,Total 9.4 mg/dL (8.5-10.1); Chloride 110 mmol/L (98-107); Cholesterol 136 mg/dL (200); Creatinine, Serum 1.17 mg/dL (0.70-1.30); EST Glomerular Filtration Rate 64 mL/min (>60); Est Glom Filt Rate - Afr Amer 77 mL/min (>60); Globulin 3.7 g/dL (2.2-4.2); Glucose 97 mg/dL (74-106); High Density Lipoprotein 42 mg/dL; Potassium 4.3 mmol/L (3.5-5.1); Protein, Total 7.3 g/dL (6.4-8.2); Sodium Level 140 mmol/L (136-145); Triglycerides 111 mg/dL; Very Low Density Lipoprotein 22 mg/dL (5-40)
== END | disposition home or self-care (01) ==
LOC: LAB 09:54
PROVIDERS: PCP Internal Medicine; Referring Provider Internal Medicine Cardiovascular Disease; Visit Provider Internal Medicine Cardiovascular Disease
DX: E78.5 Hyperlipidemia, unspecified (principal)
CPT/HCPCS: 36415; 80048; 80061; 80076

== ENCOUNTER → 2024-06-29 | Outpatient (CLI) | payer MEDICARE, OTHER, SELFPAY ==
[2022-09-11 11:24] VITALS: BMI 25.0
--- NOTE | 2024-06-29 08:40 | ECHOD_ITS ---
Reason For Study Reason For Study: MVP Procedure This was a 2D Doppler, Color Flow transthoracic echocardiogram. Exam performed in department. Left Ventricle Normal LV size. The left ventricular ejection fraction is 70 %. No regional wall motion abnormalities noted. Right Ventricle Normal RV size. Normal systolic function. Atria The left atrium is mildly enlarged. Normal right atrium. Mitral Valve Percutaneous csoi-co-jizj repair with a mitral valve clip, appears to be stable. Mild (1+) mitral valve insufficiency. Tricuspid Valve Normal tricuspid valve. Mild to moderate (1-2+) tricuspid valve insufficiency. Pulmonary artery systolic pressure is 43 mmHg. Aortic Valve Trisinus/trileaflet aortic valve. Mild (1+) aortic valve insufficiency. Pulmonic Valve Normal pulmonic valve. Great Vessels Normal aortic root. The pulmonary artery is normal size. Inferior vena cava collapse with respiration. Pericardium/Pleural No pericardial effusion. MMode/2D Measurements & Calculations LVIDd: 5.2 cm IVSd: 0.92 cm Ao root diam: 3.3 cm LVIDs: 2.9 cm LVPWd: 0.92 cm RVDd: 5.1 cm FS: 44.2 % LAV(MOD-bp): 68.1 ml RVOT diam: 2.8 cm LVAd ap4: 28.7 cm2 LAV(MOD-bp) Indexed: 34.5 ml/m2 LVLd ap4: 7.2 cm LAV(MOD-sp2): 66.9 ml EDV(MOD-sp4): 93.6 ml LAV(MOD-sp4): 66.8 ml EDV(sp4-el): 96.9 ml LVAs ap4: 14.4 cm2 LVLs ap4: 5.9 cm ESV(MOD-sp4): 29.6 ml ESV(sp4-el): 30.0 ml EF(MOD-sp4): 68.4 % EF(sp4-el): 69.0 % SV(MOD-sp4): 64.0 ml SV(sp4-el): 66.9 ml LA A4 area: 23.3 cm2 SI(MOD-sp4): 32.4 ml/m2 LA dimension(2D): 4.3 cm RA A4 area: 18.0 cm2 TAPSE: 2.3 cm Time Measurements MV dec time: 0.30 sec Doppler Measurements & Calculations MV E max bill: 153.0 cm/sec Lat Peak E' Bill: 5.7 cm/sec Med Peak E' Bill: 6.3 cm/sec MV A max bill: 144.9 cm/sec E/E' lat: 26.6 E/E' med: 24.3 MV E/A: 1.1 MV V2 max: 164.2 cm/sec Ao V2 max: 154.4 cm/sec MV max P.8 mmHg MV dec slope: 517.1 cm/sec2 Ao max P.5 mmHg MV V2 mean: 84.8 cm/sec Ao V2 mean: 100.0 cm/sec MV mean P.7 mmHg Ao mean P.7 mmHg MV V2 VTI: 59.3 cm Ao V2 VTI: 36.9 cm AV (velocity ratio): 0.62 AI max bill: 384.6 cm/sec LV V1 max: 101.5 cm/sec PA V2 max: 169.0 cm/sec AI max P.3 mmHg LV V1 max P.1 mmHg PA V2 mean: 121.5 cm/sec LV V1 mean P.3 mmHg PA mean PG (full): 6.0 mmHg AI dec slope: 210.1 cm/sec2 LV V1 mean: 71.7 cm/sec AI P1/2t: 536.2 msec LV V1 VTI: 22.9 cm PI end-d bill: 62.7 cm/sec SV(RVOT): 65.6 ml TR max bill: 314.9 cm/sec TR max P.7 mmHg ECHO/Echo Complete Interpretation Summary Normal LV size. The left ventricular ejection fraction is 70 %. The left atrium is mildly enlarged. Percutaneous uxcx-hu-bhfs repair with a mitral valve clip, appears to be stable . Mild (1+) mitral valve insufficiency. Ordering Physician: Dax Rodriguez Referring Physician: Shira Marcial Performed By: Amber Meza, TOD, RVT
== END | disposition home or self-care (01) ==
LOC: CVS 08:39
PROVIDERS: PCP Internal Medicine; Referring Provider Internal Medicine Cardiovascular Disease; Visit Provider Internal Medicine Cardiovascular Disease
DX: I34.0 Nonrheumatic mitral (valve) insufficiency (principal); I27.20 Pulmonary hypertension, unspecified; I48.91 Unspecified atrial fibrillation; I25.810 Atherosclerosis of coronary artery bypass graft(s) without angina pectoris; I10 Essential (primary) hypertension; Z95.1 Presence of aortocoronary bypass graft; E78.00 Pure hypercholesterolemia, unspecified; Z98.890 Other specified postprocedural states
CPT/HCPCS: 93306

== ENCOUNTER 2024-07-23 14:07 | Emergency (ER) | payer MEDICARE, OTHER, SELFPAY ==
[2022-09-11 11:24] VITALS: BMI 25.0
[2024-07-23 14:08] VITALS: BP 182/70; PULSE 74; RESP 16; TEMP 36.7; O2SAT 97; BMI 25.5
--- NOTE | 2024-07-23 14:27 | EX.ED.GUMALE ---
HPI History of Present Illness Chief Complaint: Complaint Detail of Chief Complaint: Hematuria Informant: patient Narrative Narrative: Patient presents to the emergency department complaint of hematuria that he noticed this morning. Patient states he normally gets up in the middle the night to urinate but does not flush the toilet did not wake people up and then this morning when he woke up he noted some flecks of blood in the toilet and when he checked his adult diaper he noted some bright red blood. He denies any abdominal pain. He denies dysuria urgency or frequency. He denies back pain. states that at home he has had 2 episodes of hematuria with clots. Patient not having any difficulty voiding. He has history of prostatectomy. He is currently on Plavix and apixaban for history of A-fib and has had a mitral valve repair but not replacement. Patient denies fever or recent illness [facility] Medical History Wears hearing aid in both ears Incontinence of urine Old inferolateral myocardial infarction Nonrheumatic mitral (valve) insufficiency Essential hypertension Hypothyroidism Atherosclerosis of coronary artery bypass graft of [place] heart without angina pectoris Hyperlipidemia Atherosclerotic heart disease of [place] coronary artery without angina pectoris Nonrheumatic mitral (valve) prolapse Elevated PSA Urgency-frequency syndrome Prostate cancer Home Medications ?Medication ?Instructions ?Recorded ?Last Taken ?Type multivitamin with folic acid 400 1 tab PO DAILY SUPPLEMENT 01/14/14 05/02/22 History mcg tablet latanoprost 0.005 % eye drops 1 drp EACH EYE Q EYES 01/03/17 05/02/22 History omega-3 fatty acids-fish oil 684 1 ea PO DAILY SUPPLEMENT 01/03/17 05/02/22 History mg-1,200 mg capsule,delayed release cinnamon bark 500 mg capsule 500 mg PO DAILY 10/07/18 05/02/22 History magnesium oxide 500 mg capsule 500 mg PO DAILY 10/07/18 05/02/22 History vitamin B complex 1 tab PO DAILY 10/07/18 05/02/22 History epinephrine 0.3 mg/0.3 mL 0.3 mg IM X1 PRN Allergic Reaction 09/20/21 Unknown History injection, auto-injector cholecalciferol (vitamin D3) 62.5 125 mcg PO DAILY 05/07/22 Unknown History mcg (2,500 unit) capsule coenzyme Q10 100 mg tablet 100 mg PO DAILY 08/16/22 Unknown History rosuvastatin 5 mg tablet 5 mg PO QHS cholesterol #90 tabs 08/20/23 Unknown Rx amlodipine 5 mg tablet 5 mg PO DAILY #90 tabs 08/22/23 Unknown Rx levothyroxine 100 mcg tablet 100 mcg PO DAILY THYROID #90 tabs 08/22/23 Unknown Rx metoprolol tartrate 25 mg tablet 12.5 mg (1/2 x 25 mg) PO BID BP 08/22/23 Unknown Rx #90 tabs nitroglycerin 0.4 mg sublingual 0.4 mg sublingual Q5M PRN chest 08/22/23 Unknown Rx tablet (Nitrostat) pain #25 tabs clopidogrel 75 mg tablet 75 mg PO DAILY #90 tabs 08/29/23 Unknown Rx azithromycin 250 mg tablet See Rx Instructions PO .COMPLEX #6 02/06/24 Unknown Rx tabs benzonatate 100 mg capsule 200 mg (2 x 100 mg) PO TID PRN 02/06/24 Unknown Rx cough #30 caps apixaban 5 mg tablet (Eliquis) 5 mg PO BID #180 TABLETS 05/27/24 Unknown Rx Allergy/AdvReac Type Severity Reaction Status Date / Time bee venom protein (honey bee) Allergy Unknown hives/anaph Verified 07/23/24 14:10 ylaxis ramipril Allergy Angioedema Verified 07/23/24 14:10 Family History Father , of [place]'s disease Hughes's disease Mother , Age 60 of [place] CAD (coronary artery disease) Myocardial infarction Brother CAD (coronary artery disease) history of cabg Brother CAD (coronary artery disease) Stented coronary artery Diabetes Sister CAD (coronary artery disease) Myocardial infarction Hypertension Surgical History S/P mitral valve clip implantation Status post mitral valve repair (06/26/22) History of coronary artery stent placement (09/14/21) H/O coronary artery bypass surgery (11/1994) H/O prostatectomy History of left heart catheterization (04/30/21) Social History (Updated 07/23/24 @ 14:17 by Pamela Lanza) household members: spouse housing: house Smoking Status: Never smoker alcohol intake: current alcohol intake frequency: other Alcohol type: beer and wine caffeine: Yes Type: coffee Number of servings: 3 ROS ROS ED Review of Systems ROS Unobtainable: other Constitutional Constitutional ED: Reports lethargy; Denies chills, fever(s), sweats or weight loss Eyes Eyes: Denies blurry vision, change in vision or diplopia ENT ENT ED: Denies rhinorrhea or sore throat Cardiovascular Cardiovascular: Denies chest pain, orthopnea or racing heartbeat Respiratory/Chest Respiratory/Chest: Denies cough, dyspnea, dyspnea on exertion, orthopnea or sputum Gastrointestinal Gastrointestinal: Denies abdominal pain, diarrhea, nausea or vomiting Genitourinary Genitourinary ED: Reports hematuria; Denies dysuria or urinary frequency Musculoskeletal Musculoskeletal: Denies arthralgias, back pain, myalgias or neck pain Integumentary Denies abscess, Abrasions or rash Neurologic Neurologic: Denies headache(s) or weakness Psychiatric Psychiatric: Denies anxiety, depression or suicidal thoughts Endocrine Endocrinology: Denies polydipsia, polyphagia or polyuria Hematologic/Lymphatic Hematologic/Lymphatic: Denies easy bleeding, easy bruising or lymphadenopathy Allergic/Immunologic Allergic/Immunologic ED: Denies mouth swelling, tongue swelling or urticaria EXAM Physical Exam Const Vital Signs: 07/23/24 14:08 07/23/24 15:10 Temperature 98.1 F 98.1 F Temperature Source Temporal Oral Pulse Rate 74 48 L Respiratory Rate 16 16 Blood Pressure 182/70 H 158/68 H Blood Pressure Mean 107 98 Pulse Ox 97 98 Oxygen Delivery Method Room Air Room Air Positive well nourished and well developed General Appearance ED: well developed and NAD HEENT Reports TM's clear and moist mucous membranes normocephalic and atraumatic; Negative for trauma or tenderness Tympanic Membrane ED: Yes TM's clear Eyes PERRL and EOMs intact bilaterally General Eye ED: Negative for pale conjunctiva or scleral icterus Neck no lymphadenopathy, supple and no JVD General: Negative for tenderness Chest Wall inspection of chest normal and palpation of chest normal Chest: Negative for tenderness Resp normal respiratory effort and clear to auscultation bilaterally Effort and Inspection: Negative for respiratory distress or pain with movement Auscultation: Negative for rhonchi, wheezes or diminished lung sounds Cardio regular rate, regular rhythm, S1 normal heart sound, S2 normal heart sound and no murmurs Peripheral Pulses: pulses 2+ throughout GI normal to inspection, nondistended, normoactive bowel sounds, soft to palpation, non-tender, non-distended and no masses Back/Spine no CVA tenderness and no thoracic nor lumbar tenderness Extremity normal to inspection General Extremety ED: Negative for edema General Extremity: Negative for edema Neuro oriented x3, CN's II-XII intact bilaterally, no sensory deficits noted and gait normal Sensorium / Orientation: awake, alert, oriented to person, oriented to place and oriented to time Motor Exam: strength 5/5 throughout and strength abnormal Psych mental status grossly normal Skin no rashes or lesions noted and no wounds MDM MDM MDM Narrative Medical decision making narrative: Patient presents with hematuria that started today. He is on Eliquis and Plavix. History of prior prostate cancer. Prior history of microscopic blood in urine. He has had cystoscopy in the past. IV line established. CBC with differential, 7.3 with hemoglobin 15.1 and platelet count 196. Urinalysis showed 0-5 RBCs and no signs of infection. Discussed case with urology Dr. Linares who knows patient well. He recommended outpatient follow-up. He did not want to stop the Eliquis and Plavix as the hematuria has resolved currently. Patient advised that if his hematuria should return to discontinue the Eliquis and the Plavix which she takes for A-fib for 4 to 5 days. Patient advised to return if persistent heavy hematuria with clots or urinary retention or condition should worsen anyway. It was also noted in his medical record that he had a CT scan of his abdomen pelvis with IV contrast August 2023 that was essentially unremarkable without any evidence of renal masses or bladder masses. Lab Data Attestation: I reviewed the patient's lab results. Labs: Laboratory Results - last 24 hr 07/23/24 14:35 WBC 7.3 RBC 4.62 Hgb 15.1 Hct 44.1 MCV 95.5 H MCH 32.7 H MCHC 34.2 RDW Std Deviation 47.5 H RDW Coeff of Darian 13.4 Plt Count 196 MPV 10.5 Immature Gran % (Auto) 0.400 Neut % (Auto) 57.6 Lymph % (Auto) 27.3 Mcclain % (Auto) 9.5 Eos % (Auto) 4.7 Baso % (Auto) 0.5 Absolute Neuts (auto) 4.2 Absolute Lymphs (auto) 1.99 Nucleated RBC % 0 Urine Color Yellow Urine Clarity Sl. Cloudy Urine pH 5.0 Ur Specific [place] 1.025 Urine Protein 30 H Urine Glucose (UA) Normal Urine Ketones Negative Urine Occult Blood 250 H Urine Nitrite Negative Urine Bilirubin Negative Urine Urobilinogen Normal Ur Leukocyte Esterase Negative Urine RBC 0-5 SEEN Urine WBC 0 SEEN Ur Squamous Epith Cells 0 SEEN Urine Bacteria 0 SEEN Urine Mucus 0 SEEN Discharge Plan Triage Chief Complaint: Complaint ED Provider: [place] Dx/Rx/DC Orders Clinical Impression: Hematuria Instructions: ED Hematuria Prescriptions: No Action cholecalciferol (vitamin D3) 62.5 mcg (2,500 unit) capsule 125 mcg PO DAILY coenzyme Q10 100 mg tablet 100 mg PO DAILY azithromycin 250 mg tablet See Rx Instructions PO .COMPLEX Qty: 6 0RF Rx Instructions: take 500 mg today (day 1), then 250 mg for 4 days (days 2-5) PO benzonatate 100 mg capsule 200 mg PO TID PRN (Reason: cough) Qty: 30 0RF multivitamin with folic acid 1 TABLET tablet 1 tab PO DAILY latanoprost 1 DROP bottle 1 drp EACH EYE QHS omega-3 fatty acids-fish oil 1 EACH capsule,delayed release(DR/EC) 1 ea PO DAILY vitamin B complex 1 EACH tablet 1 tab PO DAILY cinnamon bark 500 MG capsule 500 mg PO DAILY magnesium oxide 500 MG capsule 500 mg PO DAILY epinephrine 0.3 mg/0.3 mL auto-injector 0.3 mg IM X1 PRN (Reason: Allergic Reaction) rosuvastatin 5 mg tablet 5 mg PO QHS Qty: 90 3RF levothyroxine 100 mcg tablet 100 mcg PO DAILY Qty: 90 3RF nitroglycerin [Nitrostat] 0.4 mg tablet, sublingual 0.4 mg SUBLINGUAL Q5M PRN (Reason: chest pain) Qty: 25 3RF metoprolol tartrate 25 mg tablet 12.5 mg PO BID Qty: 90 3RF amlodipine 5 mg tablet 5 mg PO DAILY Qty: 90 3RF clopidogrel 75 mg tablet 75 mg PO DAILY Qty: 90 3RF Eliquis 5 mg tablet 5 mg PO BID Qty: 180 3RF Primary Care Provider: Shira Borjas Referrals: Brenden Linares MD [Med Staff - Active Staff] - 5-7 Days Shira Borjas DO [Primary Care Provider] - Print Language: Indonesian Disposition Disposition: Home, Self Care
[2024-07-23 14:46] LABS: Bacteria 0 SEEN /hpf (None Seen); Mucous, Urine 0 SEEN /hpf (<or=2+)
[2024-07-23 14:53] LABS: Color, Urine Yellow (Yellow); Glucose, Dipstick Normal (Normal); Ketone-Dipstick Negative (Negative); Leukocyte Esterase-Dipstick Negative /ul (Negative); Nitrite-Dipstick Negative (Negative); Occult Blood-Urine 250 /ul (Negative); Protein-Dipstick 30 mg/dl (Negative); Specific Gravity, Urine 1.025 (1.002-1.030); Urine Bilirubin Dipstick Negative (Negative); Urine Clarity Sl. Cloudy (Clear); Urine Urobilinogen Normal (Normal)
[2024-07-23 14:55] LABS: Absolute Lymphocyte Count 1.99 X10^3/uL (0.83-4.51); Absolute Neutrophil Count 4.2 X10^3/uL (2.0-7.7); Basophil# 0.04 X10^3/uL; Basophil% 0.5 % (0-1); Eosinophil# 0.34 X10^3/uL; Eosinophils% 4.7 % (0-5); Hematocrit 44.1 % (40-54); Hemoglobin 15.1 g/dL (13.0-16.5); Lymphocyte # 1.99 X10^3/ul (0.83-4.51); Lymphocyte % 27.3 % (19-41); Mean Corp Hgb Conc 34.2 g/dL (32-36); Mean Corpuscular Hgb 32.7 pg (27.0-32.0); Mean Corpuscular Volume 95.5 fL (80-94); Mean Platelet Vol. 10.5 fl (6.2-12.0); Monocyte# 0.69 X10^3/uL; Monocyte% 9.5 % (0-10); NRBC Flagged by Analyzer 0 % (0-5); Neutrophil # 4.19 X10^3/uL (2.7-7.7); Neutrophil % 57.6 % (47-70); Platelet Count 196 K/mm3 (150-450); RBC Distribution Width CV 13.4 % (11.6-14.6); RBC Distribution Width SD 47.5 fl (35.1-43.9); Red Blood Count 4.62 M/mm3 (4.6-6.2); White Blood Count 7.3 K/mm3 (4.4-11.0)
[2024-07-23 15:10] VITALS: BP 158/68; PULSE 48; RESP 16; TEMP 36.7; O2SAT 98
[2024-07-23 15:40] LABS: Anion Gap 8 (5-15); BUN 23 mg/dL (4-19); BUN/Creat Ratio 19.7 RATIO (10-20); Calcium,Total 8.9 mg/dL (7.6-11.0); Carbon Dioxide 23.3 mmol/L (21.0-32.0); Chloride 106 mmol/L (98-108); Creatinine, Serum 1.14 mg/dL (0.70-1.20); EST Glomerular Filtration Rate 65 (>60); Estimated Creatinine Clearance 52.47 ml/min (50-250); Glucose 116 mg/dL (70-99); Potassium 3.9 mmol/L (3.3-5.1); Sodium Level 137 mmol/L (133-145)
[2024-07-23 15:44] VITALS: BP 157/78; PULSE 52; RESP 18; TEMP 36.7; O2SAT 97
[2024-07-23 16:47] LABS: Red Blood Cells-Urine 25-50 SEEN /hpf (0-5); Squamous Epithelial Cells - UA 0-5 SEEN /hpf (0-5)
[2024-07-23 16:48] LABS: White Blood Cells 0-5 SEEN /hpf (0-5)
== END 2024-07-23 15:44 | disposition home or self-care (01) ==
PROVIDERS: Emergency Provider Emergency Medicine; PCP Internal Medicine; Referring Provider Emergency Medicine; Visit Provider Emergency Medicine
DX: R31.9 Hematuria, unspecified (principal); I10 Essential (primary) hypertension; I25.10 Atherosclerotic heart disease of native coronary artery without angina pectoris; E78.5 Hyperlipidemia, unspecified; I25.2 Old myocardial infarction; Z79.01 Long term (current) use of anticoagulants; Z79.02 Long term (current) use of antithrombotics/antiplatelets; Z79.890 Hormone replacement therapy; Z79.899 Other long term (current) drug therapy; Z90.79 Acquired absence of other genital organ(s); Z95.1 Presence of aortocoronary bypass graft; Z95.5 Presence of coronary angioplasty implant and graft; Z82.49 Family history of ischemic heart disease and other diseases of the circulatory system
CPT/HCPCS: 80048; 81001; 85025; 99282

== ENCOUNTER → 2024-08-04 | Outpatient (CLI) | payer MEDICARE, OTHER, SELFPAY ==
[2022-09-11 11:24] VITALS: BMI 25.0
--- NOTE | 2024-08-04 12:32 | CT_ITS ---
PROCEDURE: CT ABD/PELVIS W/WO CONTRAST 08/04/2024 REASON FOR EXAM: GROSS HEMATURIA/PROSTATE CA TECHNIQUE: Abdomen and pelvis CT with intravenous contrast. Coronal and Sagittal reconstruction series were provided. Precontrast images are provided. PATIENT PREPARATION: Per protocol ORAL CONTRAST TYPE: None. CONTRAST: Isovue-350 VOLUME: 100 mL One or more dose reduction techniques were used (e.g., Automated exposure control, adjustment of the mA and/or kV according to patient size, use of iterative reconstruction technique. RADIATION DOSE SUMMARY: CTDlvol: 13.67 mGy DLP: 1341 mGycm COMPARISON: 09/04/2023. FINDINGS: Unchanged large hiatal hernia. Prior radical prostatectomy, unchanged. Diffuse spondylosis, unchanged. Unchanged mild atheromatous plaques of the aorta. Unchanged multiple left renal parapelvic cysts. Mild diffuse thickening of the underdistended bladder. The visualized lung bases are unremarkable. Normal liver. Normal gallbladder and extrahepatic biliary system. Normal spleen. Normal pancreas. Normal bilateral adrenal glands. Normal size of the right kidney. There is no right renal mass. There are no right renal calculi. There is no right hydronephrosis. Normal visualized right ureter. Normal size of the left kidney. There is no left renal mass. There are no left renal calculi. There is no left hydronephrosis. Normal visualized left ureter. Normal visualized stomach. Normal small intestine. Normal colon. The appendix is visualized and appears normal. There is no demonstrated peritoneal fluid. Normal abdominal aorta. Normal inferior vena cava. Normal retroperitoneum. There is no pelvic mass lesion or lymphadenopathy. There is no pelvic fluid. Normal abdominal wall. Normal osseous structures. CT/CT Abd/Pelvis W/WO Contrast IMPRESSION: No significant change is noted. No CT evidence of disease recurrence. Mild diffuse thickening of the underdistended bladder, possibly cystitis. Reading [facility] [id number]
== END | disposition home or self-care (01) ==
LOC: CT 12:30
PROVIDERS: PCP Internal Medicine; Referring Provider Urology; Visit Provider Urology
DX: C61 Malignant neoplasm of prostate (principal); R31.0 Gross hematuria
CPT/HCPCS: 74178; Q9967

== ENCOUNTER → 2024-08-10 | Outpatient (CLI) | payer MEDICARE, OTHER, SELFPAY ==
[2022-09-11 11:24] VITALS: BMI 25.0
[2024-08-10 17:46] LABS: PSA,Total- Diagnostic < 0.02 ng/mL (0.00-4.00)
== END | disposition home or self-care (01) ==
LOC: LAB 14:46
PROVIDERS: PCP Internal Medicine; Referring Provider Urology; Visit Provider Urology
DX: C61 Malignant neoplasm of prostate (principal)
CPT/HCPCS: 36415; 84153

== ENCOUNTER → 2024-09-27 | Outpatient (CLI) | payer MEDICARE, OTHER, SELFPAY ==
[2022-09-11 11:24] VITALS: BMI 25.0
--- NOTE | 2024-09-27 | FLU_PTH ---
PATIENT: СЕРГЕЙ ALMEIDA [facility] U[facility][id number] AGE/SX: 79/M ROOM: RE09/27/[address]: Dr. Brenden Linares MD : 1945 BED: DIS: 09/27/2024 SPEC #: [id number] RECD: 09/27/24 09:57 STATUS: MARCUS REQ #: [id number] KAITY: 09/27/24 00:[address]: Brenden Linares DEPT: CYTOLOGY RECD BY: Lamine Goodrich ENTERED: 09/28/24 09:25 SP TYPE: Fluid OTHR DR: Dr. Shira Borjas, DO Tissues: A - Urine Procedures: Special Stain Group II Surgery Specimen Level IV Cytospin Fluid HEADER OPERATION: Not noted PRE-OP DIAGNOSIS: Malignant neoplasm of prostate TISSUE SUBMITTED: A- Urine for cytology - voided DIAGNOSIS CYTOLOGY A. Urine, voided: - Atypical cells of undetermined significance. CYTOLOGY STUDY Slides are reviewed. CYTOLOGY GROSS A. Received is 10 ml of [id number] fluid labeled with the patient's name and and designated per the requisition as urine. Submitted for cytology preparation. Mr 09/28/2024 CPT: 95375
[2024-09-27 16:21] LABS: Cytology, Body Fluid / CSF SEE PATHOLOGY REPORT
== END | disposition home or self-care (01) ==
LOC: LABSPEC 16:02
PROVIDERS: PCP Internal Medicine; Referring Provider Urology; Visit Provider Urology
DX: C61 Malignant neoplasm of prostate (principal)
CPT/HCPCS: 88108; 88305; 88313

== ENCOUNTER 2024-10-08 06:19 | Day surgery (SDC) | payer MEDICARE, OTHER, SELFPAY ==
[2022-09-11 11:24] VITALS: BMI 25.0
--- NOTE | 2024-09-30 09:38 | EKG12_ITS ---
Test Reason : PRE OP Blood Pressure : */* mmHG Vent. Rate : 49 BPM Atrial Rate : 49 BPM P-R Int : 136 ms QRS Dur : 114 ms QT Int : 470 ms P-R-T Axes : 58 -60 -26 degrees QTcB Int : 424 ms Marked sinus bradycardia Incomplete right bundle branch block Left anterior fascicular block ST & T wave abnormality, consider lateral ischemia Abnormal ECG Confirmed by SHARA LADD, INDIO ([id number]), scientific publications editor RAPHAEL LEVINE ([id number]) on 10/01/2024 5:54:38 AM Referred By: Brenden Linares Confirmed By: INDIO OLMEDO MD
--- NOTE | 2024-10-01 16:49 | PAT.ANESEVAL ---
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 When Was Last Pacemaker Check QUESTION #4 FULL TEXT: You/Your Family Experience fever (hyperthermia) with Anesthesia Last Oral Intake Last Oral intake: Last Oral Intake NPO since Meds taken in AM with sips of water? 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 Female No 09/29/24 09:12 HX of Motion Sickness No 09/29/24 09:12 HX of N/V After Surgery Yes 09/29/24 09:12 Non-Smoker Yes 09/29/24 09:12 Duration of Surgery greater No 09/29/24 09:12 than 60 minutes Number of Risk Factors 2 09/29/24 09:12 PONV Score Moderate Risk 09/29/24 09:12 Height & Weight Height & Weight: Anesthesia: Height & Weight Height 5 ft 10 in 07/23/24 14:08 Respiratory Assessment Respiratory Assessment - furniture repair technician: Respiratory Tract Infection Hx - furniture repair technician Hx Respiratory Tract Infection No 09/29/24 09:12 STOP Sleep Apnea STOP Sleep Apnea - furniture repair technician: STOP Sleep Apnea - furniture repair technician Hx Hypertension Yes: CONTROLLED ON MED 09/29/24 09:12 Hx Sleep Apnea No 09/29/24 09:12 CPAP No 09/29/24 09:12 BIPAP No 09/29/24 09:12 Do you snore loudly (louder No 09/29/24 09:12 than talking or can be heard Do you often feel tired/ No 09/29/24 09:12 fatigued/ sleepy during daytime? Has anyone observed you stop No 09/29/24 09:12 breathing during sleep? STOP Results Negative 09/29/24 09:12 QUESTION #5 FULL TEXT : Do you snore loudly (louder than talking or can be heard through closed doors)? 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 Specify any problems Hx of Preganancy in last 3 No 09/29/24 09:12 Months Nurse Filling Out Transfusion VCHRISTIN 09/29/24 09:12 & Questions: Date: 09/29/24 09/29/24 09:12 Time: 09:14 09/29/24 09:12 Patient unable to answer at this time (ie. 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 - furniture repair technician: /Reproductive Hx- furniture repair technician Hx Now No 09/29/24 09:12 Gestational Age (in weeks): EDC: Hx Hx Para Hx Section SAB No 09/29/24 09:12 PFSH Medical History (Updated 09/29/24 @ 09:12 by Cassy Richard) Wears hearing aid Wears glasses Thyroid disease Kidney stones High cholesterol Easy bruising Excessive bleeding Non-smoker Hx of transesophageal echocardiography (DARCY) for monitoring History of echocardiogram History of stress test Hypertension Cardiology follow-up encounter History of atrial fibrillation Wears hearing aid in both ears Incontinence of urine Old inferolateral myocardial infarction Nonrheumatic mitral (valve) insufficiency Essential hypertension Hypothyroidism Atherosclerosis of coronary artery bypass graft of [place] heart without angina pectoris Hyperlipidemia Atherosclerotic heart disease of [place] coronary artery without angina pectoris Nonrheumatic mitral (valve) prolapse Elevated PSA Urgency-frequency syndrome Prostate cancer Home Medications ?Medication ?Instructions ?Recorded ?Last Taken ?Type multivitamin with folic acid 400 1 tab PO DAILY SUPPLEMENT 01/14/14 05/02/22 History mcg tablet latanoprost 0.005 % eye drops 1 drp EACH EYE QHS EYES 01/03/17 05/02/22 History omega-3 fatty acids-fish oil 684 1 ea PO DAILY SUPPLEMENT 01/03/17 05/02/22 History mg-1,200 mg capsule,delayed release cinnamon bark 500 mg capsule 500 mg PO DAILY 10/07/18 05/02/22 History magnesium oxide 500 mg capsule 500 mg PO DAILY 10/07/18 05/02/22 History vitamin B complex 1 tab PO DAILY 10/07/18 05/02/22 History epinephrine 0.3 mg/0.3 mL 0.3 mg IM X1 PRN Allergic Reaction 09/20/21 Unknown History injection, auto-injector cholecalciferol (vitamin D3) 62.5 125 mcg PO DAILY 05/07/22 Unknown History mcg (2,500 unit) capsule coenzyme Q10 100 mg tablet 100 mg PO DAILY 08/16/22 Unknown History nitroglycerin 0.4 mg sublingual 0.4 mg sublingual Q5M PRN chest 08/22/23 Unknown Rx tablet (Nitrostat) pain #25 tabs apixaban 5 mg tablet (Eliquis) 5 mg PO BID #180 TABLETS 05/27/24 Unknown Rx levothyroxine 100 mcg tablet 100 mcg PO DAILY THYROID #90 tabs 08/20/24 Unknown Rx clopidogrel 75 mg tablet 75 mg PO DAILY #90 tabs 08/24/24 09/29/24 Rx metoprolol tartrate 25 mg tablet 12.5 mg (1/2 x 25 mg) PO BID BP 08/24/24 Unknown Rx #90 tabs rosuvastatin 5 mg tablet 5 mg PO QHS for cholesterol #90 08/24/24 Unknown Rx TABLETS amlodipine 5 mg tablet 2.5 mg PO DAILY 09/29/24 Unknown History Allergy/AdvReac Type Severity Reaction Status Date / Time bee venom protein (honey bee) Allergy Unknown hives/anaph Verified 09/29/24 08:53 ylaxis ramipril Allergy Angioedema Verified 09/29/24 08:53 Family History Father , of [place]'s disease Rohini's disease Mother , Age 60 of [place] CAD (coronary artery disease) Myocardial infarction Brother CAD (coronary artery disease) history of cabg Brother CAD (coronary artery disease) Stented coronary artery Diabetes Sister CAD (coronary artery disease) Myocardial infarction Hypertension Surgical History (Updated 09/29/24 @ 09:11 by Cassy Richard) Hx of elbow surgery History of robot-assisted laparoscopic radical prostatectomy S/P mitral valve clip implantation Status post mitral valve repair (06/26/22) History of coronary artery stent placement (09/14/21) H/O coronary artery bypass surgery (11/1994) History of left heart catheterization (04/30/21) Social History (Updated 07/23/24 @ 14:17 by Pamela Lanza) household members: spouse housing: house Smoking Status: Never smoker alcohol intake: current alcohol intake frequency: other Alcohol type: beer and wine caffeine: Yes Type: coffee Number of servings: 3 Audit: Pertinent Findings Pertinent Findings EKG Perinent findings: September 30, 2024. Marked sinus bradycardia at 49 bpm. Incomplete right bundle branch block. Left anterior fascicular block. ST and T wave abnormality consider lateral ischemia. Lateral ischemia seen in EKG of September 30, 2022. Stress test pertinent findings: March 22, 2020. EF is 67%. Area of previous inferior lateral infarct noted and mild mid-inferior ischemia. (See cath). Echo (EF%) pertinent findings: June 29, 2024. EF of 70%. PASP is 43 mmHg. No aortic valve stenosis is noted. Heart catheterization pertinent findings: April 30, 2021. EF of 65%. Left main with 70% ostial stenosis. Patent SWANSON to the mid?LAD. Patent saphenous venous graft to the first diagonal. Moderate mitral valve prolapse with regurgitation. Consult pertinent findings: October 30, 2023. Dr. Rodriguez. 1. Status post mitral valve clip implantation-doing well at this time. Continue medical therapy and cardiac rehab. 2. Atrial fibrillation, new onset-currently maintaining sinus rhythm. No changes at this time. 3. Coronary artery bypass surgery?resolved. SWANSON to LAD, SVG to the D1, SVG to the OM 2. Continue current medical therapy. 4. Hypertension-slightly elevated in office today. Recommendation Anesthesia Recommendation Anesthesia recommendation: F/U recommended
--- NOTE | 2024-10-05 15:51 | PAT.ANE_ITS ---
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 When Was Last Pacemaker Check QUESTION #4 FULL TEXT: You/Your Family Experience fever (hyperthermia) with Anesthesia Last Oral Intake Last Oral intake: Last Oral Intake NPO since Meds taken in AM with sips of water? 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 - program development specialist: PONV - program development specialist Female No 09/29/24 09:12 HX of Motion Sickness No 09/29/24 09:12 HX of N/V After Surgery Yes 09/29/24 09:12 Non-Smoker Yes 09/29/24 09:12 Duration of Surgery greater No 09/29/24 09:12 than 60 minutes Number of Risk Factors 2 09/29/24 09:12 PONV Score Moderate Risk 09/29/24 09:12 Height & Weight Height & Weight: Anesthesia: Height & Weight Height 5 ft 10 in 07/23/24 14:08 Respiratory Assessment Respiratory Assessment - program development specialist: Respiratory Tract Infection Hx - program development specialist Hx Respiratory Tract Infection No 09/29/24 09:12 STOP Sleep Apnea STOP Sleep Apnea - program development specialist: STOP Sleep Apnea - program development specialist Hx Hypertension Yes: CONTROLLED ON MED 09/29/24 09:12 Hx Sleep Apnea No 09/29/24 09:12 CPAP No 09/29/24 09:12 BIPAP No 09/29/24 09:12 Do you snore loudly (louder No 09/29/24 09:12 than talking or can be heard Do you often feel tired/ No 09/29/24 09:12 fatigued/ sleepy during daytime? Has anyone observed you stop No 09/29/24 09:12 breathing during sleep? STOP Results Negative 09/29/24 09:12 QUESTION #5 FULL TEXT : Do you snore loudly (louder than talking or can be heard through closed doors)? 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 Specify any problems Hx of Preganancy in last 3 No 09/29/24 09:12 Months Nurse Filling Out Transfusion VCHRISTIN 09/29/24 09:12 & Questions: Date: 09/29/24 09/29/24 09:12 Time: 09:14 09/29/24 09:12 Patient unable to answer at this time (ie. 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 - program development specialist: /Reproductive Hx- program development specialist Hx Now No 09/29/24 09:12 Gestational Age (in weeks): EDC: Hx Hx Para Hx Section SAB No 09/29/24 09:12 PFSH Medical History (Updated 09/29/24 @ 09:12 by Cassy Richard) Wears hearing aid Wears glasses Thyroid disease Kidney stones High cholesterol Easy bruising Excessive bleeding Non-smoker Hx of transesophageal echocardiography (DARCY) for monitoring History of echocardiogram History of stress test Hypertension Cardiology follow-up encounter History of atrial fibrillation Wears hearing aid in both ears Incontinence of urine Old inferolateral myocardial infarction Nonrheumatic mitral (valve) insufficiency Essential hypertension Hypothyroidism Atherosclerosis of coronary artery bypass graft of [place] heart without angina pectoris Hyperlipidemia Atherosclerotic heart disease of [place] coronary artery without angina pectoris Nonrheumatic mitral (valve) prolapse Elevated PSA Urgency-frequency syndrome Prostate cancer Home Medications ?Medication ?Instructions ?Recorded ?Last Taken ?Type multivitamin with folic acid 400 1 tab PO DAILY SUPPLE MENT 01/14/14 05/02/22 Hi story mcg tablet latanoprost 0.005 % eye drops 1 drp EACH EYE QHS EYES 01/03/17 05/02/22 History omega-3 fatty acids-fish oil 684 1 ea PO DAILY SUPPLEM ENT 01/03/17 05/02/22 History mg-1,200 mg capsule,delayed release cinnamon bark 500 mg capsule 500 mg PO DAILY 10/07/18 05/02/22 History magnesium oxide 500 mg capsule 500 mg PO DAILY 9 05/02/22 History vitamin B complex 1 tab PO DAILY 10/07/18/0 11/16 History epinephrine 0.3 mg/0.3 mL 0.3 mg IM X1 PRN Allergic Re action 09/20/21 Unknown History injection, auto-injector cholecalciferol (vitamin D3) 62.5 125 mcg PO DAILY Unknown History mcg (2,500 unit) capsule coenzyme Q10 100 mg tablet 100 mg PO DAILY 08/16/22 Un known History nitroglycerin 0.4 mg sublingual 0.4 mg sublingual Q5M PRN chest 08/22/23 Unknown Rx tablet (Nitrostat) pain #25 tabs apixaban 5 mg tablet (Eliquis) 5 mg PO BID #180 TABLET S 05/27/24 Unknown Rx levothyroxine 100 mcg tablet 100 mcg PO DAILY THYROID #90 tabs 08/20/24 Unknown Rx clopidogrel 75 mg tablet 75 mg PO DAILY #90 tabs 03/2009/29/24 Rx metoprolol tartrate 25 mg tablet 12.5 mg (1/2 x 25 mg) PO BID BP 08/24/24 Unknown Rx #90 tabs rosuvastatin 5 mg tablet 5 mg PO QHS for cholesterol #90 08/24/24 Unknown Rx TABLETS amlodipine 5 mg tablet 2.5 mg PO DAILY 09/29/24 Unk nown History Allergy/AdvReac Type Severity Reaction Status Date / Time bee venom protein (honey bee) Allergy Unknown hives/anaph Verified 09/29/24 08:53 ylaxis ramipril Allergy Angioedema Verified 09/29/24 08:53 Family History Father , of [place] disease [place] Mother , Age 60 of [place] CAD (coronary artery disease) Myocardial infarction Brother CAD (coronary artery disease) history of cabg Brother CAD (coronary artery disease) Stented coronary artery Diabetes Sister CAD (coronary artery disease) Myocardial infarction Hypertension Surgical History (Updated 09/29/24 @ 09:11 by Cassy Richard) Hx of elbow surgery History of robot-assisted laparoscopic radical prostatectomy S/P mitral valve clip implantation Status post mitral valve repair (06/26/22) History of coronary artery stent placement (09/14/21) H/O coronary artery bypass surgery (11/1994) History of left heart catheterization (04/30/21) Social History (Updated 07/23/24 @ 14:17 by Pamela Lanza) household members: spouse housing: house Smoking Status: Never smoker alcohol intake: current alcohol intake frequency: other Alcohol type: beer and wine caffeine: Yes Type: coffee Number of servings: 3 Audit: Pertinent Findings HISTORY of Pertinent Findings History of Pertinent Findings: EKG Pertinent Findings EKG Perinent findings September 30, 2024. Marked 10/04/24 18:24 sinus bradycardia at 49 bpm. Incomplete right bundle branch block. Left anterior fascicular block. ST and T wave abnormality consider lateral ischemia. Lateral ischemia seen in EKG of September 30, 2022. Stress Test Pertinent Findings Stress test pertinent findings March 22, 2020. EF is 67% 10/04/24 18:07 . Area of previous inferior lateral infarct noted and mild mid-inferior ischemia. (See cath). Echo Pertinent Findings Echo (EF%) pertinent findings June 29, 2024. EF of 70%. 10/01/24 16:53 PASP is 43 mmHg. No aortic valve stenosis is noted. Heart Catheterization Pertinent Findings Heart catheterization April 30, 2021. EF of 65%. 10/01/24 16:59 pertinent findings Left main with 70% ostial stenosis. Patent SWANSON to the mid?LAD. Patent saphenous venous graft to the first diagonal. Moderate mitral valve prolapse with regurgitation. Consult Pertinent Findings Consult pertinent findings October 30, 2023. 10/04/24 18:18 Michael. 1. Status post mitral valve clip implantation-doing well at this time. Continue medical therapy and cardiac rehab. 2. Atrial fibrillation, new onset-currently maintaining sinus rhythm. No changes at this time. 3. Coronary artery bypass surgery?resolved. SWANSON to LAD, SVG to the D1, SVG to the OM 2. Continue current medical therapy. 4. Hypertension-slightly elevated in office today.
--- NOTE | 2024-10-05 16:12 | PAT.ANE_ITS ---
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 When Was Last Pacemaker Check QUESTION #4 FULL TEXT: You/Your Family Experience fever (hyperthermia) with Anesthesia Last Oral Intake Last Oral intake: Last Oral Intake NPO since Meds taken in AM with sips of water? 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 Has anyone observed you stop No 09/29/24 09:12 breathing during sleep? STOP Results Negative 09/29/24 09:12 QUESTION #5 FULL TEXT : Do you snore loudly (louder than talking or can be heard through closed doors)? 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 Specify any problems Hx of Preganancy in last 3 No 09/29/24 09:12 Months Nurse Filling Out Transfusion VCHRISTIN 09/29/24 09:12 & Questions: Date: 09/29/24 09/29/24 09:12 Time: 09:14 09/29/24 09:12 Patient unable to answer at this time (ie. 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 farmworker Hx Now No 09/29/24 09:12 Gestational Age (in weeks): EDC: Hx Hx Para Hx Section SAB No 09/29/24 09:12 PFSH Medical History (Updated 09/29/24 @ 09:12 by Cassy Richard) Wears hearing aid Wears glasses Thyroid disease Kidney stones High cholesterol Easy bruising Excessive bleeding Non-smoker Hx of transesophageal echocardiography (DARCY) for monitoring History of echocardiogram History of stress test Hypertension Cardiology follow-up encounter History of atrial fibrillation Wears hearing aid in both ears Incontinence of urine Old inferolateral myocardial infarction Nonrheumatic mitral (valve) insufficiency Essential hypertension Hypothyroidism Atherosclerosis of coronary artery bypass graft of [place] heart without angina pectoris Hyperlipidemia Atherosclerotic heart disease of [place] coronary artery without angina pectoris Nonrheumatic mitral (valve) prolapse Elevated PSA Urgency-frequency syndrome Prostate cancer Home Medications ?Medication ?Instructions ?Recorded ?Last Taken ?Type multivitamin with folic acid 400 1 tab PO DAILY SUPPLE MENT 01/14/14 05/02/22 Hi story mcg tablet latanoprost 0.005 % eye drops 1 drp EACH EYE QHS EYES 01/03/17 05/02/22 History omega-3 fatty acids-fish oil 684 1 ea PO DAILY SUPPLEM ENT 01/03/17 05/02/22 History mg-1,200 mg capsule,delayed release cinnamon bark 500 mg capsule 500 mg PO DAILY 10/07/18 05/02/22 History magnesium oxide 500 mg capsule 500 mg PO DAILY 9 05/02/22 History vitamin B complex 1 tab PO DAILY 10/07/18/0 11/16 History epinephrine 0.3 mg/0.3 mL 0.3 mg IM X1 PRN Allergic Re action 09/20/21 Unknown History injection, auto-injector cholecalciferol (vitamin D3) 62.5 125 mcg PO DAILY Unknown History mcg (2,500 unit) capsule coenzyme Q10 100 mg tablet 100 mg PO DAILY 08/16/22 Un known History nitroglycerin 0.4 mg sublingual 0.4 mg sublingual Q5M PRN chest 08/22/23 Unknown Rx tablet (Nitrostat) pain #25 tabs apixaban 5 mg tablet (Eliquis) 5 mg PO BID #180 TABLET S 05/27/24 Unknown Rx levothyroxine 100 mcg tablet 100 mcg PO DAILY THYROID #90 tabs 08/20/24 Unknown Rx clopidogrel 75 mg tablet 75 mg PO DAILY #90 tabs 03/2009/29/24 Rx metoprolol tartrate 25 mg tablet 12.5 mg (1/2 x 25 mg) PO BID BP 08/24/24 Unknown Rx #90 tabs rosuvastatin 5 mg tablet 5 mg PO QHS for cholesterol #90 08/24/24 Unknown Rx TABLETS amlodipine 5 mg tablet 2.5 mg PO DAILY 09/29/24 Unk nown History Allergy/AdvReac Type Severity Reaction Status Date / Time bee venom protein (honey bee) Allergy Unknown hives/anaph Verified 09/29/24 08:53 ylaxis ramipril Allergy Angioedema Verified 09/29/24 08:53 Family History Father , of [place]'s disease [place] Mother , Age 60 of [place] CAD (coronary artery disease) Myocardial infarction Brother CAD (coronary artery disease) history of cabg Brother CAD (coronary artery disease) Stented coronary artery Diabetes Sister CAD (coronary artery disease) Myocardial infarction Hypertension Surgical History (Updated 09/29/24 @ 09:11 by Cassy Richard) Hx of elbow surgery History of robot-assisted laparoscopic radical prostatectomy S/P mitral valve clip implantation Status post mitral valve repair (06/26/22) History of coronary artery stent placement (09/14/21) H/O coronary artery bypass surgery (11/1994) History of left heart catheterization (04/30/21) Social History (Updated 07/23/24 @ 14:17 by Pamela Lanza) household members: spouse housing: house Smoking Status: Never smoker alcohol intake: current alcohol intake frequency: other Alcohol type: beer and wine caffeine: Yes Type: coffee Number of servings: 3 Audit: Pertinent Findings HISTORY of Pertinent Findings History of Pertinent Findings: EKG Pertinent Findings EKG Perinent findings September 30, 2024. Marked 10/04/24 18:24 sinus bradycardia at 49 bpm. Incomplete right bundle branch block. Left anterior fascicular block. ST and T wave abnormality consider lateral ischemia. Lateral ischemia seen in EKG of September 30, 2022. Stress Test Pertinent Findings Stress test pertinent findings March 22, 2020. EF is 67% 10/04/24 18:07 . Area of previous inferior lateral infarct noted and mild mid-inferior ischemia. (See cath). Echo Pertinent Findings Echo (EF%) pertinent findings June 29, 2024. EF of 70%. 10/01/24 16:53 PASP is 43 mmHg. No aortic valve stenosis is noted. Heart Catheterization Pertinent Findings Heart catheterization April 30, 2021. EF of 65%. 10/01/24 16:59 pertinent findings Left main with 70% ostial stenosis. Patent SWANSON to the mid?LAD. Patent saphenous venous graft to the first diagonal. Moderate mitral valve prolapse with regurgitation. Consult Pertinent Findings Consult pertinent findings October 30, 2023. 10/04/24 18:18 Michael. 1. Status post mitral valve clip implantation-doing well at this time. Continue medical therapy and cardiac rehab. 2. Atrial fibrillation, new onset-currently maintaining sinus rhythm. No changes at this time. 3. Coronary artery bypass surgery?resolved. SWANSON to LAD, SVG to the D1, SVG to the OM 2. Continue current medical therapy. 4. Hypertension-slightly elevated in office today. Pertinent Findings Consult pertinent findings: October 05, 2024. Spoke with cardiology about latest EKG. The lateral ischemia could be explained by the occluded saphenous vein graft to the obtuse marginal branch. Also the difference from the EKG in 2022 could be as simple as lead placement in the lateral chest leads. In a low risk procedure as is scheduled here, the patient should do fine. Recommendation Anesthesia Recommendation Anesthesia recommendation: OPTIMIZED for anesthesia (If the patient has any chest pain, shortness of breath, difficulty climbing 1 flight of stairs, or other cardiac symptoms on the day of surgery, the patient should be canceled and referred back to cardiology.)
[2024-10-08] VITALS (9 sets, daily range): BP systolic 111–162; BP diastolic 62–72; PULSE 48–54; RESP 15–16; TEMP 36.1–36.4; O2SAT 92–96; BMI 25.2
--- OUTSIDE RECORDS SUMMARY | 2024-10-08 06:26 | XMS RPT_ITS | CCD ---
Author Organization [facility] ion [facility] Care Team Providers Care Research Programmer Name Role Phone Hilton Jay Unavailable [facility] Unavailable Alex Navarro Unavailable Mauricio Linder Unavailable Medardo Gage Unavailable Rosanne Enrique Unavailable Unavailable Carina Montgomery Unavailable Unavailable Emy Stoll Unavailable Unavailable Rosanne Fernández Unavailable Unavailable Unavailable Unavailable Hilton Jay Attending Unavailable Hilton Jay Referring Unavailable Hilton Jay Consulting Unavailable ReneeaCharlotte E Unavailable Elizabeth Jeronimo Unavailable Unavailable Sterling Cerna Unavailable Rosanne Enrique Unavailable Unavailable Lamine Campos Unavailable Unavailable Gravius, Tara Unavailable Unavailable Lamine Dallas Unavailable Unavailable Alex Navarro Unavailable Anna Gamez Unavailable Unavailable Kateryna Doyle A Primary Care Provider Hilton Jay DO Unavailable [facility] Unavailable Alex Navarro MD Unavailable Sterling Cerna Unavailable Dr. Mauricio Linder Unavailable [phone] Medardo Gage MD Unavailable Rosanne Enrique RN Unavailable Unavailable Gravius RORO, Tara Unavailable Unavailable Lamine Dallas LPN Unavailable Unavailable Anna Gamez LPN Unavailable Unavailable Carina Montgomery Unavailable Unavailable Unavailable Unavailable Viviana Mohan LPN Unavailable Unavailable Dr. Hilton Jay Primary Care Provider [phone] Dr. Hilton Jay Referring Provider Dr. Dax Rodriguez Attending Provider [phone] Dax Rodriguez Other Provider MD Dax Rodriguez Referring Provider Unavailable Chucky ENVIRONMENTAL CONSULTANT, ENVIRONMENTAL CONSULTANT-C Ryan Roman Attending Provider Vivek Kateryna A Primary Care Provider [phone] Hilton Jay DO Unavailable [phone] Hilton Jay DO Primary Care Provider Michael, Dax S Unavailable Elvira LADD, Amar Unavailable Dr. Hilton Jay Primary Care Provider [phone] Cassie Curiel Attending Provider Unavailable Dr. Hilton Jay Primary Care Provider [phone] Dr. Hilton Jay Referring Provider Pradeep ENVIRONMENTAL CONSULTANT, ENVIRONMENTAL CONSULTANT-C Rosanne Attending Provider Dr. Candelario Joy Attending Provider [phone] Hilton Jay DO Unavailable [phone] [facility] Un[facility] Alex Navarro MD Unavailable Sterling Cerna Unavailable Dr. Mauricio Linder Unavailable Medardo Gage MD Unavailable Rosanne Enrique RN Unavailable Unavailable Tara Hayes CMA Unavailable Unavailable Lamine Dallas LPN Unavailable Unavailable Carina Montgomery Unavailable Unavailable Unavailable Unavailable Hilton Jay DO Primary Care Provider Michael, [place] S Unavailable Elvira LADD, Amar Unavailable Isabell Driscoll MA Unavailable Unavailable Dr. Hilton Jay Primary Care Provider [phone] Cassie Curiel Attending Provider Unavailable Pradeep HATFIELD, RAMBO Lay Referring Provider Dr. Dax Rodriguez Attending Provider [phone] Hilton Jay Primary Care Provider [phone] Ale, Dr. Farley Emergency Provider Mariah, Dr. Garcia Admit Provider Unavailable Mariah, Dr. Garcia Attending Provider Unavailable Mariah, Dr. Garcia Other Provider Unavailable Chai, Dr. Rodriguez Attending Provider Hilton Jay DO Unavailable [phone] Hilton Jay DO Primary Care Provider Michael, [place] S Unavailable Elvira LADD, Amar Unavailable Dr. Hilton Jay Primary Care Provider [phone] Ale, Dr. Farley Emergency Provider Mariah, Dr. Garcia Admit Provider Unavailable Mariah, Dr. Garcia Attending Provider Unavailable Mariah, Dr. Garcia Other Provider Unavailable Chai, Dr. Rodriguez Attending Provider [phone] Dr. Hilton Jay Referring Provider Dr. Dax Rodriguez Attending Provider [phone] Aquiles READ, Roseannevaughna Unavailable Unavailable Hilton Jay DO Primary Care Provider Michael, Dax S Unavailable Dr. Hilton Jay Primary Care Provider [phone] Dr. Hilton Jay Referring Provider Dr. Dax Rodriguez Attending Provider [phone] Hilton Jay Primary Care Provider [phone] Dr. Dax Rodriguez Attending Provider [phone] Hilton Jay DO Primary Care Provider [phone] Dr. Dax Rodriguez MD Attending Provider Michael ALDD, Dr. Verduzco Referring Provider Clementine GRANT, Dr. Hooker Referring Provider Clementine GRANT, Dr. Hooker Emergency Provider Clementine DO, Dr. Hooker Attending Provider Lorene LADD, Dr. Brenden Lemons Attending Provider Lorene LADD, Dr. Brenden Lemons Referring Provider Indio, Hilton Primary Care Unavailable Michael, [place] Attending Unavailable Lorene, Brenden Lemons Referring Unavailable Ungur, Leahus Attending Unavailable Ungur, Remus Referring Unavailable Indio, Hilton Primary Care Unavailable Indio, Hilton Primary Care Unavailable Lorene, Brenden Lemons Referring Unavailable Lorene, Brenden Lemons Attending Unavailable Indio, Hilton Primary Care Unavailable Indio, Hilton Attending Unavailable Indio, Hilton Primary Care Unavailable Kassie Rodriguez Attending Unavailable Indio, Hilton Primary Care Unavailable Lorene, Brenden Lemons Attending Unavailable Lorene, Brenden Lemons Referring Unavailable Indio, Hilton Referring Unavailable Michael, [place] Attending Unavailable Indio, Hilton Primary Care Unavailable Indio, Hilton Primary Care Unavailable Stephane Reynolds Attending Unavailable Indio, Hilton Referring Unavailable Indio, Hilton Primary Care Unavailable Michael, Dax Attending Unavailable Indio, Hilton Referring Unavailable Jorge Kelly Attending Unavailable Indio, Hilton Primary Care Unavailable Indio, Hilton Primary Care Unavailable Lorene, Brenden Lemons Attending Unavailable Lorene, Brenden Lemons Referring Unavailable Michael, [place] Referring Unavailable Michael, [place] Attending Unavailable Indio, Hilton Primary Care Unavailable Indio, Hilton Primary Care Unavailable Lorene, Brenden Lemons Referring Unavailable Lorene, Brenden Lemons Attending Unavailable Michael, [place] Referring Unavailable Indio, Hilton Primary Care Unavailable Michael, Dax Attending Unavailable Allergies Allergy Classification Reported Allergen(s) Allergy Type Date of Onset Reaction(s) Facility Niacin (1 source) Niacin Drug Allergy 4 Unknown [facility] Unclassified (20 sources) Bees Allergy to substance 4 Hives, Anaphylaxis [facility] Work Phone: (20 sources) Niacin; Translations: [Niacin *ANTIHYPERLIPID EMICS*] Drug Allergy 4 Unknown [facility] Work Phone: (19 sources) bee venom protein (honey bee) Allergy to substance 2 hives/anaphyla xis [facility] (20 sources) Ramipril Drug Allergy 2 Angioedema [facility] (1 source) Allergy to drug (finding) [facility] Work Phone: (1 source) Allergy to drug (finding) [facility] Work Phone: (1 source) Allergy to drug (finding) [facility] Work Phone: (1 source) Allergy to drug (finding) [facility]; [facility] Work Phone: (1 source) Allergy to drug (finding) [facility]; [facility] Work Phone: (1 source) Allergy to drug (finding) [facility]; [facility] Work Phone: (1 source) Ramipril Drug Allergy 5 [facility] Repository (1 source) bee venom protein (honey bee) Drug allergy (disorder) 5 [facility] Medications Current Medications Medication Drug Class(es) Dates Sig (Normalized) Sig (Original) amLODIPine 5 mg oral tablet (20 sources) Dihydropyridine Calcium Channel Rigo Start: 08-22-2023 End: 08-22-2023 take 1 tablet by mouth once daily Amlodipine 5 mg tablet Active 5 mg PO DAILY 90 August 22, 2023 4:00pm Start: 02-11-2023 End: 08-22-2023 take 2.5 mg by mouth once daily Amlodipine 5 mg tablet Discontinued 2.5 mg PO DAILY February 11, 2023 9:54am August 22, 2023 4:00pm Start: 02-11-2023 take 2.5 mg by mouth once ceasar y Amlodipine Active 2.5 MG PO DAILY February 11, 2023 9:54am Start: 09-23-2022 End: 02-11-2023 take 1 tablet by mouth once daily Amlodipine 5 mg tablet Discontinued 5 mg PO DAILY October 16, 2022 5:44pm February 11, 2023 9:56am Start: 10-03-2021 End: 09-23-2022 take 1 tablet by mouth once daily Amlodipine 2.5 mg tablet Discontinued 0 .ROUTE .COMPLEX October 30, 2021 11:45am December 20, 2021 11:50am TAKE 1 TABLET BY MOUTH EVERY DAY Comment on above: Take 2.5 mg by mouth once daily. azithromycin 250 mg oral tablet (20 sources) Macrolide Antimicrobial Start: 02-06-20 take 2-5 tablets by mouth once daily Azithromycin 250 mg tablet Active 0 PO .COMPLEX February 06, 2024 1:00am take 500 mg today (day 1), then 250 mg for 4 days (days 2-5) PO Start: 03-03-2019 End: 09-13-2019 Start: 06-29-2009 ZITHROMAX Z-PA K, 250MG (Oral Tablet) 1 Tablet TAD for 0 days Quantity: 1 {Package(s)} Refills: 0 Ordered: 11-Aug-2009 Susan Manzano Start : 29-Jun-2009 Inactive benzonatate 100 mg oral capsule (20 sources) Non-narcotic Antitussive Start: 02-06-2024 take 2 capsules by mouth three times daily as needed for cough Benzonatate 100 mg capsule Active 200 mg PO THREE TIMES A DAY as needed for cough February 06, 2024 1:00am Start: 06-29-2009 Start: 11-09-2008 Comment on above: do not chew Cholecalciferol (20 sources) Vitamin D Start: 05-07-2022 take 1 capsule by mouth once daily Cholecalciferol (Vitamin D3) 62.5 mcg (2,500 unit) capsule Active 125 ug PO DAILY May 07, 2022 12:00am Start: 05-07-2022 take 125 ug by mouth once daily Cholecalciferol (Vitamin D3) Active 125 MCG PO DAILY May 06, 2022 11:00pm Start: 05-07-2022 take 125 ug by mouth once daily Cholecalciferol (Vitamin D3) Active 125 MCG PO DAILY May 07, 2022 12:00am Start: 01-14-2014 End: 05-07-2022 take 1 tablet by mouth once daily Cholecalciferol (Vitamin D3) 1,000 UNIT tablet Discontinued 1000 U PO DAILY January 14, 2014 1:00am May 07, 2022 3:00pm Comment on above: Take 1,000 Units by mouth once daily. cinnamon bark 500 mg oral capsule (20 sources) Start: 10-07-2018 take 1 capsule by mouth once daily Cinnamon Bark 500 MG capsule Active 500 mg PO DAILY October 07, 2018 12:00am take 2 capsules by mouth once da reagan Cinnamon Bark 500 mg cap Take 1,000 mg by mouth once daily. 0 Active Comment on above: Take by mouth. Take 1,000 mg by le th once daily. [id number] 0.3 ml EPINEPHrine 1 mg/ml auto-injector (20 sources) alpha-Adrenergic Agonist, beta-Adrenergic Agonist, Catecholamine Start: 11-01-2022 Start: 06-05-2020 Start: 01-19-2019 End: 09-20-2021 Epinephrine 0.3 mg/0.3 mL au to-injector Active 0.3 mg IM ONE TIME as needed for Allergic Reaction September 20, 2021 8:36am Start: 11-10-2018 EpiPen 2-Varun 0 .3 MG/0.3ML Injection Solution Auto-injector 1 (one) Device uad, prn for 0 days Quantity: 1 {Box} Refills: 3 Ordered: 10-Nov-2018 Hilton Jay DO, DO, Kathleen Start : 10-Nov-2018 Active Start: 08-08-2016 EpiPen 2-Varun 0 .3 MG/0.3ML Injection Solution Auto-injector 1 (one) Device uad, prn for 0 days Quantity: 1 {Box} Refills: 3 Ordered: 08-Aug-2016 Hilton Jay DO, DO, Kathleen Start : 08-Aug-2016 Active Start: 05-08-2010 End: 03-11-2012 Start: 05-08-2010 End: 03-11-2012 EPIPEN, 0.3MG/0.3ML (Injecti on Device) uad Device prn for 0 days Quantity: 1 {Device} Refills: 3 Ordered: 11-Mar-2012 Coby Bañuelos LPN Start : 08-May-2010 End : 11-Mar-2012 Inactive Comments: easy pen Comment on above: easy pen latanoprost 0.05 mg/ml ophthalmic solution (20 sources) Prostaglandin Analog Start: 01-03-2017 Latanoprost 1 DROP bottle Active 1 NMA EACH EYE AT BEDTIME January 03, 2017 1:00am latanoprost (XEL PROS) 0.005 % ophthalmic emulsion Use 1 Drop in both eyes daily at bedtime. 0 Active Comment on above: Use 1 Drop in both e yes daily at bedtime. magnesium oxide 500 mg oral capsule (19 sources) Start: 9 take 1 capsule by mouth once daily Magnesium Oxide 500 MG capsule Active 500 mg PO DAILY October 07, 2018 12:00am Multivitamin With Folic Acid (15 sources) Start: 4 take 1 tablet by mouth once daily Multivitamin With Folic Acid Active 1 TABLET PO DAILY January 14, 2014 12:04pm Start: 01-14-2014 take 1 tablet by le th once daily Multivitamin With Folic Acid Active 1 TABLET PO DAILY January 14, 2014 12:00am Start: 01-14-2014 take 1 tablet by le th once daily Multivitamin With Folic Acid Active 1 TABLET PO DAILY January 14, 2014 1:00am Multivitamin With Folic Acid 1 TABLET tablet (4 sources) Start: 01-14-2014 take 1 tablet by mouth once daily Multivitamin With Folic Acid 1 TABLET tablet Active 1 {tbl} PO DAILY January 14, 2014 1:00am [place]-3 Fatty Acids-Fish Oil (15 sources) Start: 01-03-2017 [place]-3 Fatty Acids-Fish Oil Active 1 EACH PO DAILY January 03, 2017 1:40pm Start: 01-03-2017 [place]-3 Fatty Acids-Fish Oil Active 1 EACH PO DAILY January 03, 2017 12:00am Start: 01-03-2017 [place]-3 Fatty Acids-Fish Oil Active 1 EACH PO DAILY January 03, 2017 1:00am [place]-3 Fatty Acids-Fish Oil 1 EACH capsule,delayed release(DR/EC) (4 sources) Start: 01-03-2017 [place]-3 Fatty Acids-Fish Oil 1 EACH capsule,delayed release(DR/EC) Active 1 NMA PO DAILY January 03, 2017 1:00am perflutren lipid microsphere s 1.3 mL in NaCl (PF) 0.9% 10 mL injection (DEFINITY) (20 sources) Start: 06-26-2022 End: 09-25-2023 perflutren lipid microsphere s 1.3 mL in NaCl (PF) 0.9% 10 mL injection (DEFINITY) Start: 08-10-2021 End: 11-09-2022 perflutren lipid microsphere s 1.3 mL in NaCl (PF) 0.9% 10 mL injection (DEFINITY) Start: 05-08-2021 End: 08-07-2022 perflutren lipid microsphere s 1.3 mL in NaCl (PF) 0.9% 10 mL injection (DEFINITY) 125 ml sodium chloride 9 mg/ml prefilled syringe (20 sources) Start: 05-08-2021 End: 09-25-2023 sodium chloride 0.9 % (flush) 10 mL (BD POSIFLUSH) Comment on above: Inject 2-10 mL intra venously as directed. For Echo procedure ubidecarenone 100 mg oral tablet (20 sources) Start: 08-16-2022 take 10 tablets by mouth once daily Coenzyme Q10 100 mg tablet Active 100 mg PO DAILY August 16, 2022 12:00am Start: 05-07-2022 End: 08-16-2022 take 10 capsules by mouth once daily Coenzyme Q10 400 mg capsule Discontinued 400 mg PO DAILY May 07, 2022 12:00am August 16, 2022 10:43am Vitamin B Complex (15 sources) Start: 10-07-2018 take 1 tablet by le once daily Vitamin B Complex Active 1 TABLET PO DAILY October 07, 2018 2:10pm Start: 10-07-2018 take 1 tablet by mouth once da reagan Vitamin B Complex Active 1 TABLET PO DAILY October 06, 2018 11:00pm Start: 10-07-2018 take 1 tablet by mouth once da reagan Vitamin B Complex Active 1 TABLET PO DAILY October 07, 2018 12:00am Vitamin B Complex 1 EACH tab let (4 sources) Start: 10-07-2018 Vitamin B Comp mariann 1 EACH tablet Active 1 {tbl} PO DAILY October 07, 2018 12:00am Completed/Discontinued Medications Medication Drug Class(es) Dates Sig (Normalized) Sig (Original) acetaminophen 325 mg / HYDROcodone bitartrate 5 mg oral tablet (20 sources) Opioid Agonist Start: 03-07-2017 End: 11-25-2017 Hydrocodone-Acetami nophen Discontinued 1 EACH PO EVERY 4 HOURS NEEDED 14 March 07, 2017 9:13am November 25, 2017 10:44am Start: 01-11-2014 End: 08-08-2021 Hydrocodone-Acetaminophen 1 EACH tablet Discontinued 1 NMA PO EVERY 4 HOURS NEEDED as needed for Pain 14 March 07, 2017 9:13am November 25, 2017 10:44am Comment on above: Take 1 tablet by le every 4 hours as needed. [id number] 200 actuat albuter ol 0.09 mg/actuat metered dose inhaler (20 sources) beta2-Adrenergic Agonist Start: 04-29-2018 End: 10-15-2018 Start: 04-29-2018 End: 10-15-2018 ProAir HFA 108 (90 Base) MCG /ACT Inhalation Aerosol Solution 2 (two) Puff tid or qid for 0 days Quantity: 1 {Inhaler} Refills: 0 Ordered: 15-Oct-2018 Rosanne Enrique RN Start : 29-Apr-2018 End : 15-Oct-2018 Inactive Start: 04-29-2018 End: 10-15-2018 ProAir HFA 108 (90 Base) MCG /ACT Inhalation Aerosol Solution 2 (two) Puff tid or qid for 0 days Quantity: 1 {Inhaler} Refills: 0 Ordered: 15-Oct-2018 Rosanne Enrique RN Start : 29-Apr-2018 End : 15-Oct-2018 Inactive amoxicillin 500 mg oral capsule (4 sources) Penicillin-class Antibacterial Start: 10-03-2023 End: 10-11-2023 take 4 capsules by mouth every hour Amoxicillin 500 mg capsule Discontinued 2000 mg PO .COMPLEX 4 October 03, 2023 12:00am October 11, 2023 1:57pm 2,000 mg orally 1 hour prior to dental appt. (prophylaxis for mitral valve repair).; amoxicillin 875 mg / clavulanate 125 mg oral tablet (20 sources) Penicillin-class Antibacterial Start: 10-10-2008 End: 11-09-2008 Start: 10-10-2008 End: 11-09-2008 take 1 tablet by mouth twice daily AUGMENTIN, 875-125MG (Oral Tablet) 1 Tablet bid for 14 days Quantity: 14 {Tablet} Refills: 0 Ordered: 10-Oct-2008 Hilton Jay DO, DO, Kathleen Start : 10-Oct-2008 End : 09-Nov-2008 Inactive apixaban 5 mg oral tablet (20 sources) Factor Xa Inhibitor Start: 05-04-2022 End: 05-27-2024 take 1 tablet by mouth twice daily Apixaban (Eliquis) 5 mg tablet Discontinued 5 mg PO TWICE A DAY 180 July 01, 2023 1:25pm May 27, 2024 8:16am Comment on above: Take by mouth. Take 1 tablet by le th twice daily. ascorbic acid 500 mg oral tablet (20 sources) Vitamin C End: 08-08-2021 Comment on above: Take 500 mg by mouth once daily. aspirin 81 mg delayed release oral tablet (20 sources) Platelet Aggregation Inhibitor, Nonsteroidal Anti-inflammatory Drug Start: 03-15-2021 End: 09-14-2022 Aspirin (Adult Low Dose Aspirin) 81 mg tablet,delayed release (DR/EC) Discontinued 81 mg PO daily March 15, 2021 1:00am May 04, 2022 10:13am Start: 06-17-2019 End: 03-14-2020 take 4 tablets by mouth once daily Aspirin 81 mg tablet,chewable Discontinued 324 mg PO DAILY June 17, 2019 10:58am March 14, 2020 12:36pm Start: 06-17-2019 End: 03-14-2020 take 324 mg by mouth once daily Aspirin Discontinued 324 MG PO DAILY June 17, 2019 10:58am March 14, 2020 12:36pm Start: 01-20-2019 End: 06-12-2022 take 1 tablet by mouth once daily Aspirin 325 mg tablet Discontinued 325 mg PO DAILY March 14, 2020 1:00am March 15, 2021 9:57am Start: 01-20-2019 End: 02-15-2019 Start: 10-15-2018 take 1 tablet by le th once daily Aspirin Low Dose 81 MG Oral Tablet 1 QD for 0 days Refills: 0 Ordered: 15-Oct-2018 Hilton Jay DO, DO, Kathleen Start : 15-Oct-2018 Active Start: 01-14-2014 End: 06-17-2019 take 1 tablet by mouth once daily Aspirin 81 MG tablet,chewable Discontinued 81 mg PO DAILY January 14, 2014 1:00am June 17, 2019 10:58am take 1 tablet by le th once daily ASPIRIN LOW DOSE, 81MG (Oral Tablet) 1 QD for 0 days Refills: 0 Ordered: 09-Nov-2008 Terri Villa Active Comment on above: This order discontin ued per [facility]. Take 81 mg by mouth once daily. Take 1 tablet by le th once daily. calcium chloride 0.0014 meq/ml / potassium chloride 0.004 meq/ml / sodium chloride 0.103 meq/ml / sodium lactate 0.028 meq/ml injectable solution (20 sources) Start: 0 End: 0 cefdinir 300 mg oral capsule (20 sources) Cephalosporin Antibacterial Start: 6 End: 6 cephalexin 500 mg oral capsule (20 sources) Cephalosporin Antibacterial Start: 3 End: 3 take 1 capsule by mouth every twelve hours Cephalexin (Keflex) 500 mg Capsule Discontinued 500 mg PO Q12H July 15, 2022 12:00am August 16, 2022 10:42am Pateint taken for 7 doses has been discontinued. Start: 07-11-2010 End: 07-11-2010 Start: 07-11-2010 End: 07-11-2010 Start: 12-17-2006 End: 02-26-2007 Start: 12-17-2006 End: 02-26-2007 take 1 capsule by mouth twice daily KEFLEX, 500MG (Oral Capsule) 1 (one) Capsule bid for 0 days Quantity: 20 {Capsule} Refills: 0 Ordered: 17-Dec-2006 Coby Bañuelos LPN Start : 17-Dec-2006 End : 26-Feb-2007 Discontinued Cinnamon Preparation (20 sources) Non-Standardized Food Allergenic Extract take 2 tablets by mouth once andrew ly CINNAMON, 500MG (Oral Tablet) 2 tabs qd (500 MG) Active ciprofloxacin 500 mg oral tablet (19 sources) Quinolone Antimicrobial Start: 03-07-2017 End: 11-25-2017 take 1 tablet by mouth twice daily Ciprofloxacin Hcl 500 MG tablet Discontinued 500 mg PO TWICE A DAY March 07, 2017 1:00am November 25, 2017 10:44am clarithromycin 500 mg oral tablet (20 sources) Macrolide Antimicrobial Start: 11-20-2007 End: 06-14-2008 clopidogrel 75 mg oral tablet (20 sources) [id number] Platelet Inhibitor Start: 09-14-2021 End: 08-29-2023 take 1 tablet by mouth once daily Clopidogrel 75 mg tablet Discontinued 75 mg PO DAILY 90 September 06, 2022 4:36pm August 29, 2023 10:13am Start: 04-29-2017 End: 11-25-2017 take 2 tablets by mouth once daily Clopidogrel 75 mg tablet Discontinued 150 mg PO daily April 29, 2017 1:00am November 25, 2017 10:44am Start: 04-29-2017 End: 11-25-2017 take 150 mg by mouth once daily Clopidogrel Discontinu ed 150 MG PO daily April 29, 2017 1:00am November 25, 2017 10:44am Start: 12-30-2013 End: 08-08-2021 take 1 tablet by mouth once daily Clopidogrel 75 MG tablet Discontinued 75 mg PO DAILY 60 October 08, 2018 12:00am October 23, 2018 2:27pm Comment on above: per cardio Take 1 tablet by le th once daily. May transfer subsequent refills to preferred pharmacy codeine phosphate 2 mg/ml / guaiFENesin 20 mg/ml oral solution (20 sources) Opioid Agonist Start: 9 End: 9 take 10 mL by mouth every six hours as needed Cheratussin AC 100-10 MG/5ML Oral Syrup 10 Milliliter Milliliter PO q6h PRN for 0 days Quantity: 280 {Milliliter} Refills: 0 Ordered: 15-Oct-2018 Rsoanne Enrique RN Start : 23-Apr-2018 End : 15-Oct-2018 Inactive Comments: Narcotic-040Sedative -020Stimulant-000OD Risk-190Two hundred-eighty Start: 11-09-2008 End: 10-15-2018 Start: 11-09-2008 GUAIATUSSIN AC , 100-10MG/5ML (Oral Syrup) 1 Syrup 1tsp qhs for 0 days Quantity: 6 {Ounce(s)} Refills: 0 Ordered: 30-May-2009 Kisha Jameson Start : 09-Nov-2008 Inactive Comment on above: Narcotic-040Sedative -020Stimulant-000OD Risk-190Two hundred-eighty diphenhydrAMINE hydrochloride 25 mg oral capsule (20 sources) Histamine-1 Receptor Antagonist Start: 09-03-19 13 End: 09-03-19 13 docosahexaenoic acid 120 mg / eicosapentaenoic acid 180 mg oral capsule (20 sources) Start: 09-03-19 13 Start: 09-02-2012 take 1 capsule by mo [facility] once daily OMEGA 3, 1000MG (Oral Capsule) 1 cap Capsule qd for 0 days Quantity: 30 {Capsule} Refills: 0 Ordered: 02-Sep-2012 Fast DO, Kateryna A Start : 02-Sep-2012 Active docusate sodium 100 mg oral capsule (19 sources) Start: 03-07-2017 End: 11-25-2017 take 1 capsule by mouth twice daily Docusate Sodium 100 MG capsule Discontinued 100 mg PO TWICE A DAY March 07, 2017 1:00am November 25, 2017 10:45am Epi E-Z Pen (12 sources) Start: 08-15-2008 End: 08-15-2008 Start: 10-03-2006 End: 10-03-2006 EPI E-Z PEN, 1:1000 (Injecti on Device) (20 sources) Start: 08-15-2008 End: 08-15-2008 EPI E-Z PEN, 1:1000 (Injecti on Device) PRN for 0 days Refills: 0 Ordered: 15-Aug-2008 Kisha Jameson Start : 15-Aug-2008 End : 15-Aug-2008 Discontinued Comments: This order discontinued per [facility]. Start: 10-03-2006 End: 10-03-2006 EPI E-Z PEN, 1:1000 (Injecti on Device) 1 PRN for 0 days Refills: 0 Ordered: 03-Oct-2006 Coby Bañuelos LPN Start : 03-Oct-2006 End : 03-Oct-2006 Discontinued Comments: This order discontinued per [facility]. Comment on above: This order discontin ued per [facility]. famotidine 40 mg oral tablet (20 sources) Histamine-2 Receptor Antagonist Start: 08-17-2015 End: 08-24-2015 Start: 10-24-2010 End: 10-31-2010 12 hr fexofenadine hydrochloride 60 mg / pseudoephedrine hydrochloride 120 mg extended release oral tablet (20 sources) alpha-Adrenergic Agonist, Histamine-1 Receptor Antagonist Start: 04-08-2007 End: 06-16-2007 Start: 04-08-2007 End: 06-16-2007 take 60-120 mg by mouth every twelve hours GIANA-D 12 HOUR, 60-120MG (Oral Tablet Extended Release 12 Hour) 1 for 0 days Refills: 0 Ordered: 08-Apr-2007 Kisha Jameson Start : 08-Apr-2007 End : 16-Jun-2007 Inactive Flavoring Agent (Bulk) (15 sources) Start: 01-14-2014 End: 11-25-2017 take 500 mg by mouth once daily Flavoring Agent (Bulk) Discontinued 500 MG PO DAILY January 14, 2014 12:04pm November 25, 2017 10:45am Start: 01-14-2014 End: 11-25-2017 take 500 mg by mouth once daily Flavoring Agent (Bulk) Discontinued 500 MG PO DAILY January 14, 2014 12:00am November 25, 2017 9:45am Start: 01-14-2014 End: 11-25-2017 take 500 mg by mouth once daily Flavoring Agent (Bulk) Discontinued 500 MG PO DAILY January 14, 2014 1:00am November 25, 2017 10:45am Flavoring Agent (Bulk) 3.7 ML oil (4 sources) Start: 01-14-2014 End: 11-25-2017 take 500 mg by mouth once daily Flavoring Agent (Bulk) 3.7 ML oil Discontinued 500 mg PO DAILY January 14, 2014 1:00am November 25, 2017 10:45am furosemide 40 mg oral tablet (20 sources) Loop Diuretic Start: 03-15-2021 End: 06-25-2022 take 1 tablet by mouth once daily Furosemide (Lasix) 40 mg tablet Discontinued 40 mg PO DAILY March 15, 2021 1:00am May 07, 2022 2:59pm Comment on above: Take 40 mg by mouth once daily. 12 hr guaiFENesin 600 mg extended release oral tablet (20 sources) Start: 03-03-2019 End: 09-13-2019 Start: 03-11-2012 End: 06-02-2012 MUCINEX, 600MG (Oral Tablet Extended Release 12 Hour) Tablet ER 12HR bid for 0 days Refills: 0 Ordered: 02-Jun-2012 Kisha Jameson Start : 11-Mar-2012 End : 02-Jun-2012 Inactive homatropine methylbromide 0. 3 mg/ml / HYDROcodone bitartrate 1 mg/ml oral solution (20 sources) Opioid Agonist, Cholinergic Muscarinic Agonist Start: 06-29-2009 Start: 06-29-2009 Start: 06-29-2009 HYCODAN, 5-1.5 MG/5ML (Oral Syrup) 1 (one) Teaspoon(s) Q 6hr/PRN for 0 days Quantity: 6 {Ounce(s)} Refills: 0 Ordered: 11-Aug-2009 Susan Manzano Start : 29-Jun-2009 Inactive Start: 06-29-2009 HYCODAN, 5-1.5 MG/5ML (Oral Syrup) 1 (one) Teaspoon(s) Q 6hr/PRN for 0 days Quantity: 6 {Ounce(s)} Refills: 0 Ordered: 11-Aug-2009 Susan Manzano Start : 29-Jun-2009 Inactive hydroCHLOROthiazide 25 mg oral tablet (20 sources) Thiazide Diuretic Start: 02-25-2017 End: 03-15-2021 Hydrochlorothiazide 25 mg tablet Discontinued 12.5 mg PO DAILY June 26, 2020 9:38am March 15, 2021 9:57am Start: 02-25-2017 End: 03-15-2021 take 12.5 mg by mouth once daily Hydrochlorothiazide Discontinued 12.5 MG PO DAILY June 26, 2020 8:38am March 15, 2021 8:57am take 0.5 tablet by m outh once daily HydroCHLOROthiazide 25 MG Oral Tablet 1/2 qd (25 MG) Active ibuprofen 200 mg oral tablet (20 sources) Nonsteroidal Anti-inflammatory Drug Start: 09-13-2019 Comment on above: with food levothyroxine sodium 0.1 mg oral tablet (20 sources) l-Thyroxine Start: 05-08-2010 End: 08-22-2023 take 1 tablet by mouth once daily Levothyroxine 100 mcg tablet Discontinued 100 ug PO DAILY September 06, 2022 4:37pm August 22, 2023 4:00pm Comment on above: dispense as written Take 100 mcg by mout h once daily. loratadine 10 mg oral capsule (20 sources) Start: 04-29-2018 End: 02-15-2019 Start: 08-17-2015 End: 04-17-2017 Start: 07-02-2011 End: 07-02-2011 take 1 capsule by mouth once daily CLARITIN, 10MG (Oral Capsule) 1 Capsule daily for 0 days Quantity: 30 {Capsule} Refills: 0 Ordered: 02-Jul-2011 Kisha Jameson Start : 02-Jul-2011 End : 02-Jul-2011 Discontinued Magnesium (20 sources) take 500 mg by mouth once daily MAGNESIUM ORAL Take 500 mg by mouth once daily. 0 Suspended take 500 mg by mouth once daily MAGNESIUM ORAL Take 500 mg by mouth once daily. 0 Active Comment on above: Take 500 mg by mouth once daily. metoprolol tartrate 25 mg oral tablet (20 sources) beta-Adrenergic Rigo Start: 06-07-2021 take 0.5 tablet by mouth twice daily Metoprolol Tartrate 25 MG Oral Tablet 1/2 (one half) Tablet bid for 30 days Quantity: 90 {Tablet} Refills: 0 Ordered: 07-Jun-2021 Hilton Jay DO, DO, Kathleen Start : 07-Jun-2021 Active Start: 01-14-2014 End: 07-10-2022 take 12.5 mg by mouth twice daily Metoprolol Tartrate Discontinued 12.5 MG PO TWICE A DAY 90 June 19, 2021 1:50pm July 10, 2022 10:53am Start: 12-30-2013 End: 08-22-2023 Metoprolol Tartrate 25 mg ta blet Discontinued 12.5 mg PO TWICE A DAY 90 July 10, 2022 11:53am August 22, 2023 4:00pm Start: 12-30-2013 End: 07-07-2021 Comment on above: Take 12.5 mg by mout h twice daily. mometasone furoate 0.05 mg/actuat metered dose nasal spray (20 sources) Corticosteroid Start: 0 MULTI-VITAMIN ORAL (20 sources) take 1 tablet by mouth once daily MULTI-VITAMIN ORAL Take 1 tablet by mouth once daily. 0 Suspended take 1 tablet by mouth once ceasar y MULTI-VITAMIN ORAL Take 1 tablet by mouth once daily. 0 Active MULTI-VITAMIN OR AL Take by mouth. 0 Active Comment on above: Take by mouth. Take 1 tablet by le th once daily. Multivitamin preparation (20 sources) MULTIVITAMIN (Or al Liquid) for 0 days Refills: 0 Ordered: 07-Jun-2021 [facility] [employer]ITARIAN, Tara Active MULTIVITAMIN (Or al Liquid) for 0 days Refills: 0 Ordered: 06-Dec-2020 Marques [employer] MACHINE SETTER, Viviana Active MULTIVITAMIN (Or al Liquid) for 0 days Refills: 0 Ordered: 05-Jun-2020 [facility] HE[employer] SANITARIAN, Tara Active MULTIVITAMIN (Or al Liquid) for 0 days Refills: 0 Ordered: 06-Dec-2019 [employer] HE[employer] SANITARIAN, Tara Active MULTIVITAMIN (Or al Liquid) for 0 days Refills: 0 Ordered: 13-Sep-2019 Burt PA[employer] RO[employer] C[employer] MACHINE SETTER, Lamine Active MULTIVITAMIN (Or al Liquid) for 0 days Refills: 0 Ordered: 13-Sep-2019 Andres [employer] RO[employer] MACHINE SETTER, Lamine Active MULTIVITAMIN (Or al Liquid) for 0 days Refills: 0 Ordered: 15-Oct-2018 Rosanne Enrique LPN Active MULTIVITAMIN (Or al Liquid) for 0 days Refills: 0 Ordered: 23-Apr-2018 Carina Montgomery Active MULTIVITAMIN (Or al Liquid) for 0 days Refills: 0 Ordered: 05-Jan-2018 Jerman LIZNEmy L Active naproxen sodium 220 mg oral capsule (20 sources) Nonsteroidal Anti-inflammatory Drug Start: 07-02-2011 End: 07-02-2011 Comment on above: start 2 caps first d ose then 1 q8hrs for antiinflammatory nitroglycerin 0.4 mg sublingual tablet (20 sources) Nitrate Vasodilator Start: 11-10-2018 End: 12-07-2019 Nitroglycerin (Nitrostat) 0.4 mg tablet, sublingual Active 0.4 MG SL Q5M December 07, 2019 3:43pm Start: 04-29-2017 End: 08-11-2017 Nitroglycerin (Nitrostat) 0. 4 mg tablet, sublingual Discontinued 0.4 MG SL Q5M April 29, 2017 1:00am August 11, 2017 1:18pm Start: 09-02-2012 End: 08-22-2023 Nitroglycerin (Nitrostat) 0. 4 mg tablet, sublingual Discontinued 0.4 mg SL Q5M as needed for chest pain December 07, 2019 4:43pm August 22, 2023 4:00pm Comment on above: Dissolve 0.4 mg unde r the tongue every 5 minutes as needed. Dissolve 0.4 mg unde r the tongue every 5 minutes as needed for chest pain. ofloxacin 3 mg/ml ophthalmic solution (20 sources) Quinolone Antimicrobial Start: 04-08-2007 End: 04-08-2007 Start: 04-08-2007 End: 04-08-2007 OCUFLOX, 0.3% (Ophthalmic So lution) 2 (two) Solution Q 4 hr while awake for 0 days Quantity: 1 {Solution} Refills: 0 Ordered: 08-Apr-2007 Charlotte Head Start : 08-Apr-2007 End : 08-Apr-2007 Discontinued Comments: dispense one bottle -- Pt coming right over 9:30 now Comment on above: dispense one bottle -- Pt coming right over 9:30 now omega-3 acid ethyl esters (long term) 1000 mg oral capsule (11 sources) Start: 09-02-2012 take 1 capsule by mouth once daily OMEGA 3, 1000MG (Oral Capsule) 1 cap Capsule qd for 0 days Quantity: 30 {Capsule} Refills: 0 Ordered: 02-Sep-2012 Kateryna Doyle DO Start : 02-Sep-2012 Active omega-3 fatty acids 1,000 mg cap (20 sources) take 1 capsule by mouth twice daily omega-3 fatty acids 1,000 mg cap Take 2 g by mouth twice daily. 0 Suspended take 1 capsule by mouth twice da reagan omega-3 fatty acids 1,000 mg cap Take 2 g by mouth twice daily. 0 Active Comment on above: Take 2 g by mouth tw ice daily. omega-3 fatty acids-fish oil (6 sources) Start: 3 ondansetron 4 mg disintegrating oral tablet (12 sources) Serotonin-3 Receptor Antagonist Start: 3 End: 3 take 1 tablet by mouth every eight hours as needed for nausea Ondansetron 4 mg tablet,disintegratin g Discontinued 4 mg PO EVERY 8 HOURS NEEDED as needed for Nausea June 03, 2022 12:00am August 16, 2022 10:45am predniSONE 10 mg oral tablet (20 sources) Start: 9 End: 9 Start: 04-29-2018 End: 10-15-2018 predniSONE 10 MG Oral Tablet 3 (three) Tablet pills for 2 days 2 pills for 2 days 1 pill for 2 days for 0 days Quantity: 12 {Tablet} Refills: 0 Ordered: 15-Oct-2018 Rosanne Enrique RN Start : 29-Apr-2018 End : 15-Oct-2018 Inactive Comments: take with food in am Start: 11-08-2015 End: 04-17-2017 PredniSONE 10 MG Oral Tablet 3 (three) Tablet Tablet pills for 2 days 2 pills for 2 days 1 pill for 2 days for 0 days Quantity: 12 {Tablet} Refills: 0 Ordered: 17-Apr-2017 Rosanne Enrique LPN Start : 08-Nov-2015 End : 17-Apr-2017 Inactive Comments: take with food in am Start: 08-17-2015 End: 10-16-2015 Comment on above: take with food in am promethazine hydrochloride 25 mg rectal suppository (20 sources) Phenothiazine Start: 12-30-19 10 End: 06-23-19 11 Comment on above: ten ramipril 10 mg oral capsule (20 sources) Angiotensin Converting Enzyme Inhibitor Start: 12-31-19 14 End: 11-23-19 take 1 capsule by mouth once daily Ramipril 10 mg capsule Discontinued 10 mg PO DAILY September 20, 2021 12:00am September 20, 2021 8:52am Start: 12-30-2013 End: 09-18-2021 take 1 capsule by mouth twice daily Ramipril 10 mg capsule Discontinued 10 mg PO TWICE A DAY 180 June 19, 2021 2:50pm September 18, 2021 11:58am Comment on above: Take 10 mg by mouth once daily. rosuvastatin calcium 5 mg oral tablet (20 sources) HMG-CoA Reductase Inhibitor Start: 5 End: take 1 tablet by mouth at bedtime Rosuvastatin 5 mg tablet Discontinued 5 mg PO AT BEDTIME 90 August 16, 2022 8:12am August 20, 2023 8:24am Start: 01-14-2014 End: 05-05-2017 take 5 mg by mouth at bedtime Rosuvastatin Discontinue d 5 MG PO AT BEDTIME 90 May 01, 2017 11:04am May 05, 2017 3:04pm Start: 12-30-2013 End: 05-05-2017 take 5 mg by mouth at bedtime Rosuvastatin 10 MG table t Discontinued 5 mg PO AT BEDTIME January 14, 2014 1:00am May 01, 2017 12:05pm Start: 12-30-2013 CRESTOR 10 mg tablet Comment on above: Take 5 mg by mouth o nce daily. sulfacetamide sodium 100 mg/ ml ophthalmic solution (20 sources) Sulfonamide Antibacterial Start: 04-08-2007 End: 06-04-2007 Start: 04-08-2007 End: 06-04-2007 BLEPH-10, 10% (Ophthalmic So lution) 1 Solution 1-2 gtts q2-6 hr for 7 days Quantity: 1 {Solution} Refills: 0 Ordered: 08-Apr-2007 Charlotte Head Start : 08-Apr-2007 End : 04-Jun-2007 Inactive sulfamethoxazole 800 mg / trimethoprim 160 mg oral tablet (20 sources) Dihydrofolate Reductase Inhibitor Antibacterial, Sulfonamide Antimicrobial Start: 10-24-2010 End: 10-31-2010 Start: 10-24-2010 End: 10-31-2010 take 1 tablet by mouth twice daily BACTRIM DS, 800-160MG (Oral Tablet) 1 Tablet bid for 7 days Quantity: 14 {Tablet} Refills: 0 Ordered: 24-Oct-2010 Charlotte Head Start : 24-Oct-2010 End : 31-Oct-2010 Inactive tamsulosin hydrochloride 0.4 mg oral capsule (3 sources) alpha-Adrenergic Rigo Start: 01-06-2014 End: 08-08-2021 take 1 capsule by mouth once daily at bedtime tamsulosin (FLOMAX) 0.4 mg cp24 Take 1 capsule by mouth daily at bedtime. 30 capsule 0 01/06/2014 08/08/2021 Discontinued (Course of therapy completed) Comment on above: Take 1 capsule by [facility] daily at bedtime. triamcinolone acetonide 0.055 mg/actuat metered dose nasal spray (20 sources) Corticosteroid Start: 04-08-2007 End: 06-14-2008 Start: 04-08-2007 End: 06-14-2008 Start: 04-08-2007 End: 06-14-2008 NASACORT AQ, 55MCG/ACT (Nasa l Aerosol Solution) 1 for 0 days Refills: 0 Ordered: 08-Apr-2007 Kisha Jameson Start : 08-Apr-2007 End : 14-Jun-2008 Inactive ubidecarenone 100 mg / vitamin e 5 unt oral capsule (19 sources) Start: 10-07-2018 End: 05-07-2022 take 1 capsule by mouth once daily Coenzyme U05-Uuvkzqd E 1 EACH capsule Discontinued 1 NMA PO DAILY October 07, 2018 12:00am May 07, 2022 3:03pm Start: 10-07-2018 End: 05-07-2022 take 1 capsule by mouth once daily Coenzyme K42-Diztvqf E Discontinued 1 CAP PO DAILY October 07, 2018 12:00am May 07, 2022 3:03pm ubidecarenone/vitamin E mixe d (COQ10 SG 100 ORAL) (20 sources) ubidecarenone/vi tamin E mixed (COQ10 SG 100 ORAL) Take 100 mg by mouth once daily. 0 Suspended ubidecarenone/vi tamin E mixed (COQ10 SG 100 ORAL) Take 100 mg by mouth once daily. 0 Active Comment on above: Take 100 mg by mouth once daily. VITAMIN B COMPLEX-100 ORAL (20 sources) take 1 tablet by mouth once daily VITAMIN B COMPLEX-100 ORAL Take 1 tablet by mouth once daily. 0 Suspended take 1 tablet by mouth once ceasar y VITAMIN B COMPLEX-100 ORAL Take 1 tablet by mouth once daily. 0 Active Comment on above: Take 1 tablet by le once daily. dl-alpha tocopheryl acetate 100 unt oral capsule (20 sources) take 4 capsules by mouth once da reagan VITAMIN E, 100UNIT (Oral Capsule) 4 caps qd for 0 days Refills: 0 Ordered: 11-Aug-2009 Susan Manzano Inactive Problems Active Problems Problem Classification Problem Date Documented Da te Episodic/Chronic Abdominal pain (20 sources) Inguinal pain; Translations: [Right lower quadrant pain] 01-05-2018 Episodic Acute bronchitis (4 sources) Acute bronchitis; Translations: [Acute bronchitis, unspecified] 02-06-2024 Episodic Administrative/social admission (17 sources) Medical examinations/reports status; Translations: [Pneumococcal immunization status] Resolved: 9 01-05-2018 Episodic Allergic reactions (20 sources) Anaphylaxis; Translations: [Personal history of anaphylaxis] Resolved: 3 10-14-2016 Episodic Calculus of urinary tract (20 sources) Kidney stone; Translations: [Calcium renal calculus ] 01-05-2018 Episodic Cancer of prostate (20 sources) Malignant tumor of prostate; Translations: [Malignant neoplasm of prostate] Onset: 5 10-07-2018 Chronic Cancer of prostate (20 sources) History of malignant neoplasm of prostate; Translations: [History of prostate cancer] 01-05-2018 Episodic Cardiac dysrhythmias (20 sources) Atrial fibrillation; Translations: [Unspecified atrial fibrillation] Onset: 3 05-03-2022 Chronic Chronic obstructive pulmonary disease and bronchiectasis (20 sources) Bronchitis; Translations: [Bronchitis] Resolved: 9 10-14-2016 Episodic Chronic obstructive pulmonary disease and bronchiectasis (20 sources) Chronic obstructive pulmonary disease and bronchiectasis Complication of device; implant or graft (19 sources) Arteriosclerosis of coronary artery bypass graft; Translations: [Atherosclerosis of coronary artery bypass graft(s) without angina pectoris] 03-13-2020 Chronic Conditions associated with dizziness or vertigo (19 sources) Lightheadedness; Translations: [Dizziness and giddiness] 12-20-2021 Episodic Congestive heart failure; nonhypertensive (18 sources) Chronic diastolic heart failure; Translations: [Chronic diastolic (congestive) heart failure] Onset: Chronic Coronary atherosclerosis and other heart disease (20 sources) Coronary arteriosclerosis; Translations: [Coronary artery disease] Onset: 2 01-05-2018 Chronic Comment on above: s/p cabg x3- 1996 s/p cabg x3- 1996str ess test and echo feb 2020 Diabetes mellitus without complication (20 sources) Hyperglycemia; Translations: [Hyperglycemia] 01-05-2018 Episodic Disorders of lipid metabolism (20 sources) Hypercholesterolemia; Translations: [Hypercholesterolemia] Onset: 4 01-05-2018 Chronic Esophageal disorders (20 sources) Gastroesophageal reflux disease; Translations: [GERD (gastroesophageal reflux disease)] 01-05-2018 Chronic Essential hypertension (20 sources) Essential hypertension; Translations: [Essential (primary) hypertension] Chronic Fluid and electrolyte disorders (20 sources) Dehydration; Translations: [Dehydration] Resolved: 1 10-14-2016 Episodic Genitourinary symptoms and ill-defined conditions (15 sources) Urinary incontinence; Translations: [Unspecified urinary incontinence] 10-27-2022 Chronic Genitourinary symptoms and ill-defined conditions (4 sources) Blood in urine; Translations: [Hematuria, unspecified] Onset: 5 07-23-2024 Episodic Heart valve disorders (20 sources) Mitral valve prolapse; Translations: [Mitral valve prolapse] Onset: 2 01-05-2018 Chronic Comment on above: clinically stable an d cath 2017 showed very little leakage clinically stable an d cath 2017 showed very little leakagegetting eval by [facility] Hyperplasia of prostate (20 sources) Benign prostatic hypertrophy without outflow obstruction; Translations: [BPH without urinary obstruction] 01-05-2018 Chronic Comment on above: stable Hypertension with complications and secondary hypertension (20 sources) Hypertensive renal disease; Translations: [Hypertensive chronic kidney disease with stage 1 through stage 4 chronic kidney disease, or unspecified chronic kidney disease] Onset: 2 Chronic Immunizations and screening for infectious disease (20 sources) Need for prophylactic vaccination and inoculation against influenza; Translations: [Encounter for immunization] Resolved: 9 11-20-2016 Episodic Inflammation; infection of eye (except that caused by tuberculosis or sexually transmitteddisease) (20 sources) Acute conjunctivitis; Translations: [Serous conjunctivitis] Resolved: 9 10-14-2016 Episodic Nausea and vomiting (20 sources) Nausea and vomiting; Translations: [Nausea and vomiting] Resolved: 1 10-14-2016 Episodic Nonspecific chest pain (20 sources) Atypical chest pain; Translations: [Chest pain, atypical] Resolved: 0 10-15-2018 Episodic Nutritional deficiencies (20 sources) Vitamin D deficiency; Translations: [Vitamin D deficiency] 12-06-2020 Chronic Other aftercare (7 sources) Long-term current use of anticoagulant; Translations: [snf (current) use of anticoagulants] 10-06-2022 Episodic Other and ill-defined heart disease (19 sources) Left ventricular diastolic dysfunction ; Translations: [Heart disease, unspecified] 03-13-2020 Chronic Other and unspecified benign neoplasm (20 sources) Polyp of colon; Translations: [Colon polyp] 01-05-2018 Episodic Comment on above: 2016 - repeat 5yr Other circulatory disease (20 sources) Elevated blood-pressure reading without diagnosis of hypertension; Translations: [Elevated blood-pressure reading without diagnosis of hypertension] Resolved: 1 10-14-2016 Episodic Other circulatory disease (20 sources) H/O: TIA; Translations: [History of TIA (transient ischemic attack)] 01-05-2018 Episodic Other connective tissue disease (16 sources) Pain of right forearm; Translations: [Pain in right forearm] 12-19-2021 Episodic Other connective tissue disease (2 sources) Pain in right forearm; Translations: [Pain in limb] Episodic Other ear and sense organ disorders (20 sources) Impacted cerumen; Translations: [Cerumen impaction] Resolved: 0 04-23-2018 Episodic Other ear and sense organ disorders (4 sources) Does use hearing aid; Translations: [Presence of external hearing-aid] 10-30-2023 Episodic Other eye disorders (20 sources) Red eye; Translations: [Red eye] Resolved: 7 10-14-2016 Episodic Other eye disorders (20 sources) Conjunctival hemorrhage, right eye; Translations: [Conjunctival hemorrhage of right eye] 01-05-2018 Episodic Other gastrointestinal disorders (20 sources) Diarrhea; Translations: [Diarrhea] Resolved: 1 10-14-2016 Episodic Other injuries and conditions due to external causes (17 sources) Angioedema due to angiotensin-converting -enzyme inhibitor; Translations: [Angioneurotic edema, initial encounter] 09-26-2021 Episodic Other lower respiratory disease (20 sources) Cough; Translations: [Cough] Onset: 0 Resolved: 0 04-23-2018 Episodic Comment on above: using chertussin of 's Other lower respiratory disease (20 sources) Postviral cough; Translations: [Post-viral cough syndrome] 04-29-2018 Episodic Other lower respiratory disease (19 sources) Dyspnea on exertion; Translations: [Dyspnea, unspecified] 12-20-2021 Episodic Other lower respiratory disease (1 source) Dyspnea, unspecified; Translations: [Other respiratory abnormalities] Episodic Other lower respiratory disease (3 sources) Dyspnea; Translations: [Shortness of breath] Episodic Other nervous system disorders (20 sources) Arachnoid cyst; Translations: [Arachnoid cyst] 09-13-2019 Chronic Comment on above: [place] neuro opini on as well as resuming plavix for CVA prevention Other non-traumatic joint disorders (20 sources) Hip pain; Translations: [Hip pain, left] Resolved: 6 10-14-2016 Episodic Other non-traumatic joint disorders (20 sources) Joint pain; Translations: [Pain in unspecified joint] 01-05-2018 Episodic Other non-traumatic joint disorders (20 sources) Ankle pain; Translations: [Ankle pain, right] Resolved: 6 10-14-2016 Episodic Other non-traumatic joint disorders (2 sources) Pain in left knee; Translations: [Knee pain, left] 06-05-2020 Episodic Other non-traumatic joint disorders (20 sources) Pain in left knee; Translations: [Knee pain, left] 12-06-2020 Episodic Other nutritional; endocrine; and metabolic disorders (20 sources) Body mass index 25-29 - overweight; Translations: [BMI 28.0-28.9,adult] 01-05-2018 Chronic Other nutritional; endocrine; and metabolic disorders (20 sources) Body mass index 25-29 - overweight; Translations: [BMI 26.0-26.9,adult] 06-05-2020 Episodic Other nutritional; endocrine; and metabolic disorders (20 sources) Overweight in adulthood with body mass index of 25 or more but less than 30; Translations: [BMI 26.0-26.9,adult] 06-07-2021 Episodic Other screening for suspected conditions (not mental disorders or infectious disease) (20 sources) Other specified abnormal findings of blood chemistry; Translations: [Blood chemistry abnormal] Resolved: 0 10-14-2016 Episodic Comment on above: scope 2014-- [facility] [place] [facility]-- due [facility]-- refused heme or cologard in 2018pt refused to get referral -- he will thijnk about sees lorene- last ps a 01/12 Other skin disorders (20 sources) Sebaceous cyst; Translations: [Sebaceous cyst of skin] Episodic Other upper respiratory disease (20 sources) Pain in throat Episodic Other upper respiratory disease (20 sources) Disorder of upper respiratory system; Translations: [Upper respiratory disease] Resolved: 0 09-13-2019 Episodic Other upper respiratory infections (20 sources) Viral upper respiratory tract infection; Translations: [Acute pharyngitis] Onset: 0 Resolved: 3 04-23-2018 Episodic Comment on above: resolving with linge ring cough Otitis media and related conditions (20 sources) Dysfunction of eustachian tube; Translations: [Eustachian tube dysfunction] Resolved: 0 10-14-2016 Episodic Phlebitis; thrombophlebitis and thromboembolism (20 sources) Superficial thrombophlebitis Resolved: 3 09-02-2012 Episodic Poisoning by nonmedicinal substances (20 sources) Bee sting; Translations: [Bee sting reaction, accidental or unintentional, initial encounter] Resolved: 7 10-14-2016 Episodic Pulmonary heart disease (18 sources) Pulmonary hypertension; Translations: [Pulmonary hypertension, unspecified] 05-03-2022 Chronic Residual codes; unclassified (20 sources) Memory loss 01-05-2018 Episodic Comment on above: mmse 30/30 will soha tor Residual codes; unclassified (20 sources) Sleep disorder; Translations: [Sleep disorder] 01-05-2018 Episodic Comment on above: better Residual codes; unclassified (20 sources) H/O: surgery; Translations: [Tonsillectomy] 04-23-2018 Episodic Residual codes; unclassified (20 sources) Needs influenza immunization; Translations: [Need for prophylactic vaccination and inoculation against influenza (Renamed from Need for immunization against influenza)] 01-05-2018 Episodic Residual codes; unclassified (20 sources) Other specified health status; Translations: [Travel abroad] 06-11-2018 Episodic Residual codes; unclassified (20 sources) Requires diphtheria, tetanus and pertussis vaccination; Translations: [Need for Tdap vaccination (Renamed from Need for aheukvyiiy-zilnwgh-dhh tussis (Tdap) vaccine, adult/adolescent)] 11-20-2016 Episodic Residual codes; unclassified (20 sources) Transient altered mental status; Translations: [Transient confusion] 09-13-2019 Episodic Comment on above: 2-echo in past yr - cat scan brain showed small arachniod cyst --troponin neg Residual codes; unclassified (20 sources) Memory impairment; Translations: [Memory impairment] 10-04-2019 Episodic Residual codes; unclassified (19 sources) Past history of procedure; Translations: [Colonoscopy] 12-06-2019 Episodic Residual codes; unclassified (20 sources) Non-smoker; Translations: [Non-smoker] 06-05-2020 Episodic Residual codes; unclassified (15 sources) History of repair of mitral valve; Translations: [Other specified postprocedural states] Onset: Episodic Comment on above: 2-metal clips perfor med at [facility] [place] Residual codes; unclassified (3 sources) Other specified postprocedural states; Translations: [Other postprocedural status] 08-16-2022 Episodic Skin and subcutaneous tissue infections (20 sources) Cyst - pilonidal; Translations: [Cellulitis of left upper limb] Resolved: 6 10-14-2016 Episodic Comment on above: suture removal -- 5 sutures to R shoulder he will finish out k eflex on bid dosing- and call with update left forearm Spondylosis; intervertebral disc disorders; other back problems (20 sources) Low back pain; Translations: [Low Back Pain] Resolved: 7 10-14-2016 Episodic Comment on above: he will keep up with chiropracotr and if and when he desides to do pt he will call Superficial injury; contusion (20 sources) Insect bite (nonvenomous) of unspecified upper arm, initial encounter; Translations: [Insect bite to arm - nonvenomous] Resolved: 2 10-14-2016 Episodic Thyroid disorders (20 sources) Hypothyroidism; Translations: [Hypothyroidism] 01-05-2018 Chronic Transient cerebral ischemia (20 sources) Transient cerebral ischemia; Translations: [TIA (transient ischemic attack)] Resolved: 6 10-14-2016 Chronic Comment on above: cotn statin, bp cont rol Transient cerebral ischemia (20 sources) Transient cerebral ischemia Unclassified (20 sources) abnormal prostate Resolved: 9 10-14-2016 Comment on above: chronic stable-marylu nue present regimen Unclassified (20 sources) Unclassified (20 sources) Elevated Blood Pressure without diagnosis of Hypertension (796.2) Unclassified (20 sources) Unspecified Diagnosis Resolved: 3 09-02-2012 Unclassified (20 sources) Abnormal TSH (794.5) Unclassified (20 sources) Non-smoker; Translations: [Non-smoker] 04-23-2018 Unclassified (20 sources) Abnormal blood chemistry (790.6) Unclassified (20 sources) abnormal skin lesion on back Resolved: 9 10-14-2016 Unclassified (20 sources) AORTA, NOS Resolved: 1 10-14-2016 Unclassified (20 sources) SCREENING FOR CANCER OF THE PROSTATE (V76.44) Unclassified (20 sources) ELEVATED Resolved: 1 10-14-2016 Unclassified (20 sources) Colon polyp (211.3) Unclassified (20 sources) Encounter for screening for malignant neoplasm of prostate (Renamed from Screening for prostate cancer) Unclassified (20 sources) BMI 28.0-28.9,adult Unclassified (20 sources) BPH without urinary obstruction Unclassified (20 sources) History of prostate cancer Unclassified (20 sources) BMI 26.0-26.9,adult Unclassified (9 sources) History of anaphylaxis Unclassified (6 sources) History of TIA (transient ischemic attack) Unclassified (6 sources) BRONCHITIS, NOT SPECIFIED ACUTE OR CHRONIC (490.) Viral infection (20 sources) Viral infection, unspecified; Translations: [Viral disease] Resolved: 3 01-09-2015 Episodic Past or Other Problems Problem Classification Problem Date Documented Da te Episodic/Chronic Abdominal hernia (20 sources) Right inguinal hernia ; Translations: [Unilateral inguinal hernia, without obstruction or gangrene, not specified as recurrent] Onset: 01-06-2014 01-06-2014 Episodic Coronary atherosclerosis and other heart disease (18 sources) Presence of aortocoronary bypass graft; Translations: [Aortocoronary bypass status] Onset: 11-24-1994 Episodic Other eye disorders (20 sources) Conjunctival hemorrhage of right eye; Translations: [Conjunctival hemorrhage, right] 04-29-2018 Other gastrointestinal disorders (1 source) Diarrhea, unspecified; Translations: [Diarrhea, unspecified] Onset: 02-28-2024 Episodic Other non-traumatic joint disorders (17 sources) Pain in left knee; Translations: [Knee pain, left] 09-13-2019 Other skin disorders (18 sources) Sebaceous cyst; Translations: [Sebaceous cyst of skin] Resolved: 05-08-2010 10-14-2016 Episodic Other skin disorders (2 sources) Epidermoid cyst of skin; Translations: [Sebaceous cyst] Resolved: 05-08-2010 10-14-2016 Episodic Pneumonia (except that caused by tuberculosis or sexually transmitted disease) (20 sources) Pneumonia (except that caused by tuberculosis or sexually transmitted disease) Skin and subcutaneous tissue infections (20 sources) Cellulitis of left upper limb; Translations: [Cellulitis of left upper extremity] Resolved: 10-16-2015 10-14-2016 Unclassified (20 sources) Bee sting reaction Unclassified (20 sources) Patient encounter status; Translations: [Annual Medicare Phyiscal WITHOUT abnormal findings (Renamed from Encounter for general adult medical examination without abnormal findings)] 08-08-2016 Unclassified (20 sources) Eustachian tube dysfunction (381.81) Unclassified (20 sources) Screening status; Translations: [Encounter for screening for malignant neoplasm of colon (Renamed from Special screening for malignant neoplasms, colon)] 01-05-2018 Comment on above: scope 2014-- with fa peña h/o due to repeat in [address] [place] [address]-- due 2019-- refused heme or cologard in 2017 nic paulson- last ps a 01/12 scope 2014-- with fa peña h/o due to repeat in [address] [place] [address]-- due 2019-- refused heme or cologard in 2018pt refused to get referral -- he will thijnk about Unclassified (20 sources) CELLULITIS/ABSCESS, ARM (682.3) Unclassified (20 sources) ARTHRALGIAS 719.40 Unclassified (20 sources) Insect bite, nonvenomous of elbow, forearm, and wrist, without mention of infection (913.4) Unclassified (16 sources) Requires vaccination; Translations: [Prophylactic vaccination against streptococcus pneumoniae and influenza] Resolved: 08-08-2008 01-11-2015 Unclassified (20 sources) Cold (460) Unclassified (20 sources) BMI 27.0-27.9,adult Unclassified (20 sources) Upper respiratory infection, viral Unclassified (20 sources) Cerumen impaction Unclassified (20 sources) Hip pain, left (719.45) Unclassified (20 sources) Ankle pain, right (719.47) Unclassified (20 sources) Annual Medicare Physical WITH abnormal findings (Renamed from Encounter for general adult medical examination with abnormal findings) Unclassified (20 sources) Right groin pain Unclassified (20 sources) BPH without Urin. Obst (600.00) Unclassified (20 sources) Physical exam WITHOUT abnormal findings (Renamed from Encounter for routine adult health examination without abnormal findings) Unclassified (20 sources) Annual Medicare Physical (V70.0) Unclassified (20 sources) Conjunctival hemorrhage, right Unclassified (20 sources) Cellulitis of left upper extremity Unclassified (20 sources) Need for Tdap vaccination (Renamed from Need for diphtheria-tetanus- pertussis (Tdap) vaccine, adult/adolescent) Unclassified (20 sources) Bee sting reaction, accidental or unintentional, initial encounter Unclassified (20 sources) Engages in travel abroad; Translations: [Travel abroad] 06-11-2018 Unclassified (20 sources) Post-viral cough syndrome Unclassified (20 sources) Common cold virus Unclassified (20 sources) Sebaceous cyst of skin; Translations: [Sebaceous cyst] Resolved: 05-08-2010 10-14-2016 Unclassified (20 sources) Chest pain, atypical Unclassified (20 sources) Knee pain, left Unclassified (20 sources) Upper respiratory disease Unclassified (20 sources) Encounter for annual general medical examination with abnormal findings in adult Unclassified (20 sources) Transient confusion Unclassified (6 sources) Prophylactic vaccination against Streptococcus pneumoniae (V03.82) Unclassified (5 sources) Encounter for hepatitis C virus screening test for high risk patient Results Test Name Value Interpretation Reference Range Facility MR/[facility] 10-05-2024 [facility] Medical Records Department [address] [place] [address] PAT - Anesthesia 10/05/24 1612 MR#: [id number] Acct: [id number] Name: JUAN PABLOСЕРГЕЙ WILSON Regulo Rep #: [id number] : 1945 79 From: Vishal Herman MD PCP: Dr. Hilton Jay, DO Status:PRE [facility] Y Race: C Location: [facility] Pre-Assessment Diagnosis/Proposed Procedure Planned Operative Procedure(s): (B) Cysto,Retrograde,Ureter oscopy Anesthesia History Anesthesia History - shellacker: Anesthesia History - shellacker Hx Hospitalization No 09/29/24 09:12 Any Problems With Anesthesia No 09/29/24 09:12 Cholinesterase deficiency No 09/29/24 09:12 You/Your Family Experience No 09/29/24 09:12 fever (hyperthermia) with Relationship Recent Exposure to Contagious No 03/05/17 07:33 Disease Does patient have nerve No 09/29/24 09:12 stimulator Patient instructed to have device shut off --Does patient have Pacemaker or ICD? When Was Last Pacemaker Check QUESTION #4 FULL TEXT: You/Your Family Experience fever (hyperthermia) with Anesthesia Last Oral Intake Last Oral intake: Last Oral Intake NPO since Meds taken in AM with sips of water? 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 - shellacker: PONV - shellacker Female No 09/29/24 09:12 HX of Motion Sickness No 09/29/24 09:12 HX of N/V After Surgery Yes 09/29/24 09:12 Non-Smoker Yes 09/29/24 09:12 Duration of Surgery greater No 09/29/24 09:12 than 60 minutes Number of Risk Factors 2 09/29/24 09:12 PONV Score Moderate Risk 09/29/24 09:12 Height Weight Height Weight: Anesthesia: Height Weight Height 5 ft 10 in 07/23/24 14:08 Respiratory Assessment Respiratory Assessment - shellacker: Respiratory Tract Infection Hx - shellacker Hx Respiratory Tract Infection No 09/29/24 09:12 STOP Sleep Apnea STOP Sleep Apnea - shellacker: STOP Sleep Apnea - shellacker Hx Hypertension Yes: CONTROLLED ON MED 09/29/24 09:12 Hx Sleep Apnea No 09/29/24 09:12 CPAP No 09/29/24 09:12 BIPAP No 09/29/24 09:12 Do you snore loudly (louder No 09/29/24 09:12 than talking or can be heard Do you often feel tired/ No 09/29/24 09:12 fatigued/ sleepy during daytime? Has anyone observed you stop No 09/29/24 09:12 breathing during sleep? STOP Results Negative 09/29/24 09:12 QUESTION #5 FULL TEXT : Do you snore loudly (louder than talking or can be heard through closed doors)? 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 Specify any problems Hx of Preganancy in last 3 No 09/29/24 09:12 Months Nurse Filling Out Transfusion VCHRISTIN 09/29/24 09:12 Questions: Date: 09/29/24 09/29/24 09:12 Time: 09:14 09/29/24 09:12 Patient unable to answer at this time (ie. 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 - shellacker: /Reproductive Hx- shellacker Hx Now No 09/29/24 09:12 Gestational Age (in weeks): EDC: Hx Hx Para Hx Section SAB No 09/29/24 09:12 [facility] Medical History (Updated 09/29/24 @ 09:12 by Cassy Richard) Wears hearing aid Wears glasses Thyroid disease Kidney stones High cholesterol Easy bruising Excessive bleeding Non-smoker Hx of transesophageal echocardiography (DARCY) for monitoring History of echocardiogram History of stress test Hypertension Cardiology follow-up encounter History of atrial fibrillation Wears hearing aid in both ears Incontinence of urine Old inferolateral myocardial infarction Nonrheumatic mitral (valve) insufficiency Essential hypertension Hypothyroidism 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 Normal [facility] MR/PAT.[facility] 10-01-2024 MR/[facility] Medical Records Department [address] [address] PAT - Anesthesia 10/01/24 1649 MR#: [id number] Acct: [id number] Name: СЕРГЕЙ ALMEIDA Rep #: [id number] : 1945 79 From: Vishal Herman MD PCP: Dr. Hilton Jay, DO Status:PRE [facility] Y Race: C Location: [facility] Pre-Assessment Diagnosis/Proposed Procedure Planned Operative Procedure(s): (B) Cysto,Retrograde,Ureter oscopy Anesthesia History Anesthesia History - shellacker: Anesthesia History - shellacker Hx Hospitalization No 09/29/24 09:12 Any Problems With Anesthesia No 09/29/24 09:12 Cholinesterase deficiency No 09/29/24 09:12 You/Your Family Experience No 09/29/24 09:12 fever (hyperthermia) with Relationship Recent Exposure to Contagious No 03/05/17 07:33 Disease Does patient have nerve No 09/29/24 09:12 stimulator Patient instructed to have device shut off --Does patient have Pacemaker or ICD? When Was Last Pacemaker Check QUESTION #4 FULL TEXT: You/Your Family Experience fever (hyperthermia) with Anesthesia Last Oral Intake Last Oral intake: Last Oral Intake NPO since Meds taken in AM with sips of water? 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 - shellacker: PONV - shellacker Female No 09/29/24 09:12 HX of Motion Sickness No 09/29/24 09:12 HX of N/V After Surgery Yes 09/29/24 09:12 Non-Smoker Yes 09/29/24 09:12 Duration of Surgery greater No 09/29/24 09:12 than 60 minutes Number of Risk Factors 2 09/29/24 09:12 PONV Score Moderate Risk 09/29/24 09:12 Height Weight Height Weight: Anesthesia: Height Weight Height 5 ft 10 in 07/23/24 14:08 Respiratory Assessment Respiratory Assessment - shellacker: Respiratory Tract Infection Hx - shellacker Hx Respiratory Tract Infection No 09/29/24 09:12 STOP Sleep Apnea STOP Sleep Apnea - shellacker: STOP Sleep Apnea - shellacker Hx Hypertension Yes: CONTROLLED ON MED 09/29/24 09:12 Hx Sleep Apnea No 09/29/24 09:12 CPAP No 09/29/24 09:12 BIPAP No 09/29/24 09:12 Do you snore loudly (louder No 09/29/24 09:12 than talking or can be heard Do you often feel tired/ No 09/29/24 09:12 fatigued/ sleepy during daytime? Has anyone observed you stop No 09/29/24 09:12 breathing during sleep? STOP Results Negative 09/29/24 09:12 QUESTION #5 FULL TEXT : Do you snore loudly (louder than talking or can be heard through closed doors)? 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 Specify any problems Hx of Preganancy in last 3 No 09/29/24 09:12 Months Nurse Filling Out Transfusion VCHRISTIN 09/29/24 09:12 Questions: Date: 09/29/24 09/29/24 09:12 Time: 09:14 09/29/24 09:12 Patient unable to answer at this time (ie. 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 - shellacker: /Reproductive Hx- shellacker Hx Now No 09/29/24 09:12 Gestational Age (in weeks): EDC: Hx Hx Para Hx Section SAB No 09/29/24 09:12 [facility] Medical History (Updated 09/29/24 @ 09:12 by Cassy Richard) Wears hearing aid Wears glasses Thyroid disease Kidney stones High cholesterol Easy bruising Excessive bleeding Non-smoker Hx of transesophageal echocardiography (DARCY) for monitoring History of echocardiogram History of stress test Hypertension Cardiology follow-up encounter History of atrial fibrillation Wears hearing aid in both ears Incontinence of urine Old inferolateral myocardial infarction Nonrheumatic mitral (valve) insufficiency Essential hypertension Hypothyroidism 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 Normal [facility] 12 Lead EKGon 09-30-2024 12 Lead EKG [facility] Cardiovascular Services [address] [address] 12 Lead EKG 09/30/24 0945 MR#: [id number] Acct: [id number] Name: СЕРГЕЙ ALMEIDA Rep #: [id number] : 1945 79 From: Dax Rodriguez MD Attending Dr: Dr. Brenden Paulson MD Status: PRE [facility] Ordering Dr: Brenden Paulson MD Date: 09/30/24 Location: [facility] Sex: M C Admitted: Test Reason : PRE OP Blood Pressure : */* mmHG Vent. Rate : 49 BPM Atrial Rate : 49 BPM P-R Int : 136 ms QRS Dur : 114 ms QT Int : 470 ms P-R-T Axes : 58 -60 -26 degrees QTcB Int : 424 ms Marked sinus bradycardia Incomplete right bundle branch block Left anterior fascicular block ST T wave abnormality, consider lateral ischemia Abnormal ECG Confirmed by MICHAEL LADD, DAX ([id number]), material expeditor RAPHAEL LEVINE ([id number]) on 10/01/2024 5:54:38 AM Referred By: Brenden Paulson Confirmed By: DAX RODRIGUEZ MD 10/01/24 0554 Date Dax Rodriguez MD CC: Dr. Brenden Paulson MD; Dr. Hilton Jay, DO Signed Normal [facility] Cytology, Body Fluid / CSFon 09-27-2024 CYTOLOGY,BF/CSF SEE PATHOLOGY REPORT Normal [facility] Comment on above: Order Comment: URINE Result Comment: Spec imen submitted to Anatomical Pathology Department for testing. Performed By: #### L 350.1000 #### [facility] Laboratory [address] [place], [address] Special Stain Group IIon Special Stain Group II ------ Patient Age/Sex Location Account Attending Physician СЕРГЕЙ ALMEIDA 79/M [facility] [id number] Dr. Brenden Paulson MD Specimen: [id number] Received: 09/27/24 Status: MARCUS Branhamromel Num: [id number] Spec Type: Fluid Subm Dr: Dr. Brenden Paulson MD HEADER OPERATION: Not noted PRE-OP DIAGNOSIS: Malignant neoplasm of prostate TISSUE SUBMITTED: A- Urine for cytology - voided DIAGNOSIS CYTOLOGY A. Urine, voided: - Atypical cells of undetermined significance. CYTOLOGY STUDY Slides are reviewed. CYTOLOGY GROSS A. Received is 10 ml of [id number]-[id number] fluid labeled with the patient's name and and designated per the requisition as urine. Submitted for cytology preparation. Mr 09/28/2024 CPT: 95299 Signed (signature on file) Dr. Louisa Callahan MD 10/04/24 1055 Normal [facility] Comment on above: Performed By: #### P SSII #### [facility] Laboratory [address] [place], [place], [address] PSA,Total- Diagnosticon 07-25 PSA, DIAGNOSTIC < 0.02 Normal 0.00-4.00 [facility] Comment on above: Result Comment: This test was performed using the [facility] tPSA method. Measured values of a patient??sample can vary depending on the testing procedure used. PSA values determined on patient samples by different testing procedures cannot be used interchangeably. If there is a change in PSA assays while monitoring therapy, sequential testing should be performed to confirm baseline values. Performed By: #### L 501.9940 #### [facility] [address] [facility] [place], [place], [address] CT Abd/Pelvis W/WO Contrasto n 08-04-2024 CT Abd/Pelvis W/WO Contrast [facility] Imaging Services [address] [place], [place] [address] CT Abd/Pelvis W/WO Contrast MR#: [id number] Acct: [id number] Name: СЕРГЕЙ ALMEIDA Regulo Rep #: [id number] : 1945 M 79 From: Janis morgan MD PCP: Dr. Hilton Jay, DO Status: [facility] CLI Study: CT Abd/Pelvis W/WO Contrast Date of Exam: 07/25 03/20 Exam# [id number] Ordering Dr: Brenden Paulson MD PROCEDURE: CT ABD/PELVIS W/WO CONTRAST 08/04/2024 REASON FOR EXAM: GROSS HEMATURIA/PROSTATE CA TECHNIQUE: Abdomen and pelvis CT with intravenous contrast. Coronal and Sagittal reconstruction series were provided. Precontrast images are provided. PATIENT PREPARATION: Per protocol ORAL CONTRAST TYPE: None. CONTRAST: Isovue-350 VOLUME: 100 mL One or more dose reduction techniques were used (e.g., Automated exposure control, adjustment of the mA and/or kV according to patient size, use of iterative reconstruction technique. RADIATION DOSE SUMMARY: CTDlvol: 13.67 mGy DLP: 1341 mGycm COMPARISON: 09/04/2023. FINDINGS: Unchanged large hiatal hernia. Prior radical prostatectomy, unchanged. Diffuse spondylosis, unchanged. Unchanged mild atheromatous plaques of the aorta. Unchanged multiple left renal parapelvic cysts. Mild diffuse thickening of the underdistended bladder. The visualized lung bases are unremarkable. Normal liver. Normal gallbladder and extrahepatic biliary system. Normal spleen. Normal pancreas. Normal bilateral adrenal glands. Normal size of the right kidney. There is no right renal mass. There are no right renal calculi. There is no right hydronephrosis. Normal visualized right ureter. Normal size of the left kidney. There is no left renal mass. There are no left renal calculi. There is no left hydronephrosis. Normal visualized left ureter. Normal visualized stomach. Normal small intestine. Normal colon. The appendix is visualized and appears normal. There is no demonstrated peritoneal fluid. Normal abdominal aorta. Normal inferior vena cava. Normal retroperitoneum. There is no pelvic mass lesion or lymphadenopathy. There is no pelvic fluid. Normal abdominal wall. Normal osseous structures. CT/CT Abd/Pelvis W/WO Contrast IMPRESSION: No significant change is noted. No CT evidence of disease recurrence. Mild diffuse thickening of the underdistended bladder, possibly cystitis. Reading Location: [place] [address] CC: Dr. Brenden Paulson MD; Dr. Hilton Jay DO [employer] Teacher: Signed Normal [facility] Absolute lymphocyte countOrd ered By: Nhung Spring on 07-23-2024 Lymphocytes Auto (Unsp spec) [#/Vol] 1.99 10*3/uL 0.83-4.51 [facility] Absolute neutrophil countOrd ered By: Rem Ungmya on 07-23-2024 Neutrophils (Bld) [#/Vol] 4.2 10*3/uL 2.0-7.7 [facility] Anion gap in Serum or Plasma Ordered By: Remus Ungmya on 07-23-2024 Anion gap [Moles/Vol] 8 mmol/L 07-08 [facility] Automated lymphocyte count a s percentage of total leukocytesOrdered By: Remus Ungmya on 07-23-2024 Lymphocytes/100 WBC Auto (Unsp spec) 27.3 % - [facility] BUN/creatinine ratioOrdered By: Remus Paulmya on 07-23-2024 Urea nitrogen/Creatinine [Mass ratio] 19.7 mg/mg - [facility] Basic Metabolic Profile (BMP )on 07-23-2024 BUN/CRE 19.7 RATIO Normal - [facility] Comment on above: Performed By: #### L 100.0100, L500.2500 #### [facility] Laboratory [address] [place], [address] Calcium [Mass/Vol] 8.9 mg/dL Normal 7.6-11.0 [facility] Comment on above: Performed By: #### L 100.0100, L500.2500 #### [facility] [address] [place], [address] Chloride [Moles/Vol] 106 mmol/L Normal 98-108 [facility] Comment on above: Performed By: #### L 100.0100, L500.2500 #### [facility] [address] [place], [address] CO2 [Moles/Vol] 23.3 mmol/L Normal 21.0-32.0 [facility] Comment on above: Performed By: #### L 100.0100, L500.2500 #### [facility] [address] [place], [address] Creatinine [Mass/Vol] 1.14 mg/dL Normal 0.70-1.20 [facility] Comment on above: Performed By: #### L 100.0100, L500.2500 #### [facility] [address] [place], [address] ECRCL 52.47 ml/min Normal 50-250 [facility] Comment on above: Performed By: #### L 100.0100, L500.2500 #### [facility] [address] [place], [address] GAP 8 Normal 5-15 [facility] Comment on above: Performed By: #### L 100.0100, L500.2500 #### [facility] [address] [place], [address] GFR/1.73 sq M.predicted among non-blacks MDRD (S/P/Bld) [Vol rate/Area] 65 mL/min/{1.73_m2} Normal >60 [facility] Comment on above: Result Comment: mL/m in/1.73m2 CKD-EPI Creatinine Equation (2020) Performed By: #### L 100.0100, L500.2500 #### [facility] [address] [place], [address] Glucose [Mass/Vol] 116 mg/dL High 70-99 [facility] Comment on above: Performed By: #### L 100.0100, L500.2500 #### [facility] [address] [place], [address] Potassium [Moles/Vol] 3.9 mmol/L Normal 3.3-5.1 [facility] Comment on above: Performed By: #### L 100.0100, L500.2500 #### [facility] [address] [place], [address] Sodium [Moles/Vol] 137 mmol/L Normal 133-145 [facility] Comment on above: Performed By: #### L 100.0100, L500.2500 #### [facility] [address] [place], [address] Urea nitrogen [Mass/Vol] 23 mg/dL High 4-19 [facility] Comment on above: Performed By: #### L 100.0100, L500.2500 #### [facility] [address] [place], [address] Basophil percentageOrdered B y: Remus Ungur on 07-23-2024 Basophils/100 WBC (Bld) 0.5 % 0-1 [facility] Bilirubin Test strip Ql (U)O rdered By: Remus Ungur on 07-23-2024 Bilirubin Ql (U) Negative Negative [facility] CBC W/Diff, Automatedon 06-26-2024 Absolute Lymph 1.99 X10 3/uL Normal 0.83-4.51 [facility] Comment on above: Performed By: #### L 100.0100, L500.2500 #### [facility] [address] [place], [address] Absolute Neut 4.2 X10 3/uL Normal 2.0-7.7 [facility] Comment on above: Performed By: #### L 100.0100, L500.2500 #### [facility] [address] [place], [address] Basophils/100 WBC (Bld) 0.5 % Normal 0-1 [facility] Comment on above: Performed By: #### L 100.0100, L500.2500 #### [facility] [address] [place], [address] Eosinophils/100 WBC (Bld) 4.7 % Normal 0-5 [facility] Comment on above: Performed By: #### L 100.0100, L500.2500 #### [facility] [address] [place], [address] Erythrocyte distribution width (RBC) [Ratio] 13.4 % Normal 11.6-14.6 [facility] Comment on above: Performed By: #### L 100.0100, L500.2500 #### [facility] [address] [place], [address] Hematocrit (Bld) [Volume fraction] 44.1 % Normal 40-54 [facility] Comment on above: Performed By: #### L 100.0100, L500.2500 #### [facility] [address] [place], [address] Hemoglobin (Bld) [Mass/Vol] 15.1 g/dL Normal 13.0-16.5 [facility] Comment on above: Performed By: #### L 100.0100, L500.2500 #### [facility] [address] [place], [address] IG% 0.400 Normal 0.0-0.9 [facility] Comment on above: Result Comment: IG% - Immature Granulocytes (promyelocytes, myelocytes and metamyelocytes) > 1% indicates that a LEFT SHIFT is Present. Performed By: #### L 100.0100, L500.2500 #### [facility] [address] [place], [address] Lymphocytes/100 WBC (Bld) 27.3 % Normal 19-41 [facility] Comment on above: Performed By: #### L 100.0100, L500.2500 #### [facility] [address] [place], [address] MCH (RBC) [Entitic mass] 32.7 pg High 27.0-32.0 [facility] Comment on above: Performed By: #### L 100.0100, L500.2500 #### [facility] [address] [place], [address] MCHC (RBC) [Mass/Vol] 34.2 g/dL Normal 32-36 [facility] Comment on above: Performed By: #### L 100.0100, L500.2500 #### [facility] [address] [place], [address] MCV (RBC) [Entitic vol] 95.5 fL High 80-94 [facility] Comment on above: Performed By: #### L 100.0100, L500.2500 #### [facility] [address] [place], [address] Monocytes/100 WBC (Bld) 9.5 % Normal 0-10 [facility] Comment on above: Performed By: #### L 100.0100, L500.2500 #### [facility] [address] [place], [address] Neutrophils/100 WBC (Bld) 57.6 % Normal 47-70 [facility] Comment on above: Performed By: #### L 100.0100, L500.2500 #### [facility] [address] [place], [address] Nucleated RBC (Bld) [#/Vol] 0 10*3/uL Normal 0-5 [facility] Comment on above: Performed By: #### L 100.0100, L500.2500 #### [facility] [address] [place], [address] Platelet mean volume (Bld) [Entitic vol] 10.5 fL Normal 6.2-12.0 [facility] Comment on above: Performed By: #### L 100.0100, L500.2500 #### [facility] [address] [place], [address] Platelets (Bld) [#/Vol] 196 10*3/uL Normal 150-450 [facility] Comment on above: Performed By: #### L 100.0100, L500.2500 #### [facility] [address] [place], [address] RBC (Bld) [#/Vol] 4.62 10*6/uL Normal 4.6-6.2 [facility] Comment on above: Performed By: #### L 100.0100, L500.2500 #### [facility] [address] [place], [address] RDW SD 47.5 fl High 35.1-43.9 [facility] Comment on above: Performed By: #### L 100.0100, L500.2500 #### [facility] [address] [place], [address] WBC (Bld) [#/Vol] 7.3 10*3/uL Normal 4.4-11.0 [facility] Comment on above: Performed By: #### L 100.0100, L500.2500 #### [facility] [address] [place], [address] Carbon dioxide, total [Moles /volume] in Central venous bloodOrdered By: Nhung Spring on 07-23-2024 CO2 [Moles/Vol] 23.3 mmol/L 21.0-32.0 [facility] Chloride assayOrdered By: Carrol Spring on 07-23-2024 Chloride [Moles/Vol] 106 mmol/L 98-108 [facility] Emergency Department Summary on 07-23-2024 Emergency Department Summary [facility] Department [address] [place] [address] Emergency Department Summary 07/23/24 MR#: [id number] Acct: [id number] Name: JUAN PABLOСЕРГЕЙ WILSON Regulo Rep #: [id number] : 1945 79 From: Nhung Spring DO PCP: Dr. Hilton Jay, DO Status:DEP ER Location: ED HPI History of Present Illness Chief Complaint: Complaint Detail of Chief Complaint: Hematuria Informant: patient Narrative Narrative: Patient presents to the emergency department complaint of hematuria that he noticed this morning. Patient states he normally gets up in the middle the night to urinate but does not flush the toilet did not wake people up and then this morning when he woke up he noted some flecks of blood in the toilet and when he checked his adult diaper he noted some bright red blood. He denies any abdominal pain. He denies dysuria urgency or frequency. He denies back pain. states that at home he has had 2 episodes of hematuria with clots. Patient not having any difficulty voiding. He has history of prostatectomy. He is currently on Plavix and apixaban for history of A-fib and has had a mitral valve repair but not replacement. Patient denies fever or recent illness 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 Nonrheumatic mitral (valve) prolapse Elevated PSA Urgency-frequency syndrome Prostate cancer Home Medications ???Medication ???Instructions ???Recorded ???Last Taken ???Type multivitamin with folic acid 400 1 tab PO DAILY SUPPLEMENT 01/14/14 05/02/22 History mcg tablet latanoprost 0.005 % eye drops 1 drp EACH EYE QHS EYES 01/03/17 0 05/02/22 History omega-3 fatty acids-fish oil 684 1 ea PO DAILY SUPPLEMENT 01/03/17 05/02/22 History mg-1,200 mg capsule,delayed release cinnamon bark 500 mg capsule 500 mg PO DAILY 10/07/18 05/02/22 History magnesium oxide 500 mg capsule 500 mg PO DAILY 10/07/18 05/02/22 History vitamin B complex 1 tab PO DAILY 10/07/18 05/02/22 H istory epinephrine 0.3 mg/0.3 mL 0.3 mg IM X1 PRN Allergic Reaction 09/20/21 Unknown History injection, auto-injector cholecalciferol (vitamin D3) 62.5 125 mcg PO DAILY 05/07/22 Unknown History mcg (2,500 unit) capsule coenzyme Q10 100 mg tablet 100 mg PO DAILY 08/16/22 Unknown H istory rosuvastatin 5 mg tablet 5 mg PO QHS cholesterol #90 tabs 0 08/20/23 Unknown Rx amlodipine 5 mg tablet 5 mg PO DAILY #90 tabs 08/22/23 Un known Rx levothyroxine 100 mcg tablet 100 mcg PO DAILY THYROID #90 tabs 08/22/23 Unknown Rx metoprolol tartrate 25 mg tablet 12.5 mg (1/2 x 25 mg) PO BID BP Unknown Rx #90 tabs nitroglycerin 0.4 mg sublingual 0.4 mg sublingual Q5M PRN chest Unknown Rx tablet (Nitrostat) pain #25 tabs clopidogrel 75 mg tablet 75 mg PO DAILY #90 tabs 08/29/23 U nknown Rx azithromycin 250 mg tablet See Rx Instructions PO .COMPLEX #6 02/06/24 Unknown Rx tabs benzonatate 100 mg capsule 200 mg (2 x 100 mg) PO TID PRN Unknown Rx cough #30 caps apixaban 5 mg tablet (Eliquis) 5 mg PO BID #180 TABLETS 05/27/24 Unknown Rx Allergy/AdvReac Type Severity Reaction Status Date / Time bee venom protein (honey bee) Allergy Unknown hives/anaph Verified 07/23/24 14:10 ylaxis ramipril Allergy Angioedema Verified 07/23/24 14:10 Family History Father , of Burleson's disease Burleson's disease Mother , Age 60 of [place] CAD (coronary artery disease) Myocardial infarction Brother CAD (coronary artery disease) history of cabg Brother CAD (coronary artery disease) Stented coronary artery Diabetes Sister CAD (coronary artery disease) Myocardial infarction Hypertension Surgical History S/P mitral valve clip implantation Status post mitral valve repair (06/26/22) History of coronary artery stent placement (09/14/21) H/O coronary artery bypass surgery (11/1994) H/O prostatectomy History of left heart catheterization (04/30/21) Social History (Updated 07/23/24 @ 14:17 by Pamela Lanza) household members: spouse housing: house Smoking Status: Never smoker alcohol intake: current alcohol intake frequency: other Alcohol type: beer and wine caffeine: Yes Type: coffee Number of servings: 3 ROS ROS ED Review of Systems ROS Unobtainable: other Constitutional Constitutional ED: Re (more content not included)... Normal [facility] Eosinophil percentageOrdered By: Nhung Spring on 07-23-2024 Eosinophils/100 WBC (Bld) 4.7 % 0-5 [facility] Erythrocyte distribution wid th ratioOrdered By: Nhung Spring on 07-23-2024 Erythrocyte distribution width (RBC) [Ratio] 13.4 % 11.6-14.6 [facility] Erythrocyte distribution wid th standard deviationOrdered By: Nhung Spring on 07-23-2024 Erythrocyte distribution width (RBC) [Ratio] 47.5 fl High 35.1-43.9 [facility] Glomerular filtration rate ( GFR) estimation/1.73 sq m using serum, plasma, or whole bOrdered By: Nhung Spring on 07-23-2024 GFR/1.73 sq M.predicted among non-blacks MDRD (S/P/Bld) [Vol rate/Area] 65 mL/min/{1.73_m2} >60 [facility] Comment on above: mL/min/1.73m2 CKD-EP I Creatinine Equation (2020) Hematocrit Auto (Bld) [Volum e fraction]Ordered By: Nhung Spring on 07-23-2024 Hematocrit (Bld) [Volume fraction] 44.1 % 40-54 [facility] Hemoglobin measurementOrdere d By: Nhung Spring on 07-23-2024 Hemoglobin (Bld) [Mass/Vol] 15.1 g/dL 13.0-16.5 [facility] Immature granulocytes/100 WB C Auto (Bld)Ordered By: Nhung Spring on 07-23-2024 Immature granulocytes/100 WBC (Bld) 0.400 % 0.0-0.9 [facility] Comment on above: IG% - Immature Granu locytes (promyelocytes, myelocytes and metamyelocytes) > 1% indicates that a LEFT SHIFT is Present. Ketones Test strip Ql (U)Ord ered By: Nhung Spring on 07-23-2024 Ketones Ql (U) Negative Negative [facility] MCV (mean corpuscular volume ) determinationOrdered By: Nhung Spring on 07-23-2024 MCV (RBC) [Entitic vol] 95.5 fL High 80-94 [facility] Mean corpuscular hemoglobin (MCH) determinationOrdered By: Nhung Spring on 07-23-2024 MCH (RBC) [Entitic mass] 32.7 pg High 27.0-32.0 [facility] Mean corpuscular hemoglobin concentration (MCHC) determinationOrdered By: Nhung Spring on 07-23-2024 MCHC (RBC) [Mass/Vol] 34.2 g/dL 32-36 [facility] Mean platelet volume determi nationOrdered By: Nhung Spring on 07-23-2024 Platelet mean volume (Bld) [Entitic vol] 10.5 fL 6.2-12.0 [facility] Microscopic analysis of urin e for red blood cells (RBC)Ordered By: Nhung Spring on 07-23-2024 Microscopic analysis of urine for red blood cells (RBC) 0-5 SEEN /hpf 0-5 [facility] Microscopic analysis of urine for red blood cells (RBC) 25-50 SEEN /hpf 0-5 [facility] Comment on above: Previous reported re sult: 0-5 SEEN /hpfEdited by: ARABELLA on 07/23/24:1647 AMENDED REPORT 07/23/247 RBC-UA previously reported as: 0-5 SEEN /hpf Monocyte percentageOrdered B y: Nhung Spring on 07-23-2024 Monocytes/100 WBC (Bld) 9.5 % 0-10 [facility] Mucus LM Ql (Urine sed)Order ed By: Nhung Spring on 07-23-2024 Mucus Ql (Urine sed) 0 SEEN /hpf [facility] Neutrophil percentageOrdered By: Nhung Spring on 07-23-2024 Neutrophils/100 WBC (Bld) 57.6 % 47-70 [facility] Nitrite Test strip Ql (U)Ord ered By: Nhung Spring on 07-23-2024 Nitrite Ql (U) Negative Negative [facility] Nucleated red blood cell per centageOrdered By: Nhung Spring on 07-23-2024 Nucleated RBC/100 WBC (Bld) [Ratio] 0 % 0-5 [facility] Platelet countOrdered By: Carrol Spring on 07-23-2024 Platelets (Bld) [#/Vol] 196 10*3/uL 150-450 [facility] Potassium measurement (mass/ volume)Ordered By: Nhung Spring on 07-23-2024 Potassium (Unsp spec) [Mass/Vol] 3.9 mmol/L 3.3-5.1 [facility] Protein Test strip Ql (U)Ord ered By: Nhung Spring on 07-23-2024 Protein Ql (U) 30 mg/dl High Negative [facility] RBC Auto (Bld) [#/Vol]Ordere d By: Nhung Spring on 07-23-2024 RBC (Bld) [#/Vol] 4.62 10*6/uL 4.6-6.2 [facility] Serum creatinine measurement (mass/volume)Ordered By: Nhung Spring on 07-23-2024 Creatinine [Mass/Vol] 1.14 mg/dL 0.70-1.20 [facility] Serum glucose measurement (m ass/volume)Ordered By: Nhung Spring on 07-23-2024 Glucose [Mass/Vol] 116 mg/dL High 70-99 [facility] Serum or plasma calcium vanessa urement (mass/volume)Ordered By: Nhung Spring on 07-23-2024 Calcium [Mass/Vol] 8.9 mg/dL 7.6-11.0 [facility] Serum or plasma urea nitroge n measurement (mass/volume)Ordered By: Nhung Spring on 07-23-2024 Urea nitrogen [Mass/Vol] 23 mg/dL High 4-19 [facility] Sodium levelOrdered By: Thai Spring on 07-23-2024 Sodium [Moles/Vol] 137 mmol/L 133-145 [facility] Squamous epithelial cells de tection in urine sediment by light microscopyOrdered By: Nhung Spring on 07-23-2024 Epithelial cells.squamous LM Ql (Urine sed) 0 SEEN /hpf 0-5 [facility] Epithelial cells.squamous LM Ql (Urine sed) 0-5 SEEN /hpf 0-5 [facility] Comment on above: Previous reported re sult: 0 SEEN /hpfEdited by: ARABELLA on 07/23/24:7 AMENDED REPORT 07/23/241646 SQUAM EPI previously reported as: 0 SEEN /hpf Urinalysis, Completeon 07-23 WBC 0-5 SEEN Normal 0-5 [facility] Comment on above: Order Comment: CLEAN CATCH Result Comment: AMENDED REPORT 07/23/241647 WBC previously reported as: 0 SEEN /hpf Performed By: #### L 400.0001 #### [facility] [address] [place], [address] EPI,SQUAMOUS 0-5 SEEN Normal 0-5 [facility] Comment on above: Order Comment: CLEAN CATCH Result Comment: AMENDED REPORT 07/23/241646 SQUAM EPI previously reported as: 0 SEEN /hpf Performed By: #### L 400.0001 #### [facility] [address] [place], [address] RBC 25-50 SEEN Normal 0-5 [facility] Comment on above: Order Comment: CLEAN CATCH Result Comment: AMENDED REPORT 07/23/241646 RBC-UA previously reported as: 0-5 SEEN /hpf Performed By: #### L 400.0001 #### [facility] [address] [place], [address] Urine clarityOrdered By: Leah Spring on 07-23-2024 Clarity (U) Sl. Cloudy Clear [facility] Urine color determinationOrd ered By: Nhung Spring on 07-23-2024 Color (U) Yellow Yellow [facility] Urine glucose detectionOrder ed By: Nhung Spring on 07-23-2024 Glucose Ql (U) Normal mg/dl Normal [facility] Urine leukocyte esterase det ection by dipstickOrdered By: Nhung Spring on 07-23-2024 Leukocyte esterase Test strip Ql (U) Negative Negative [facility] Urine pHOrdered By: Nhung Trotter gur on 07-23-2024 pH (U) 5.0 [pH] 5.0 - 8.0 [facility] Urine sediment bacteria coun t by microscopy (number/high power field)Ordered By: Nhung Spring on 07-23-2024 Bacteria LM.HPF (Urine sed) [#/Area] 0 /[HPF] None Seen [facility] Urine specific gravity measu rementOrdered By: Nhung Spring on 07-23-2024 Specific gravity (U) [Rel density] 1.025 1.002-1.03 0 [facility] Urine urobilinogen measureme ntOrdered By: Nhung Spring on 07-23-2024 Urobilinogen Ql (U) Normal mg/dl Normal [facility] White blood cell (WBC) count Ordered By: [facility] on 07-23-2024 WBC (Bld) [#/Vol] 7.3 10*3/uL 4.4-11.0 [facility] White blood cell countOrdere d By: Nhung Spring on 07-23-2024 White blood cell count 0 SEEN /hpf 0-5 [facility] White blood cell count 0-5 SEEN /hpf 0-5 [facility] Comment on above: Previous reported re sult: 0 SEEN /hpfEdited by: ARABELLA on 07/23/24:1648 AMENDED REPORT 07/23/24 1648 WBC previously reported as: 0 SEEN /hpf Matt 07-16-2024 AVERY Telephone (RENA) СЕРГЕЙ ALMEIDA ([id number]) 1945 M Date Time Provider Department 07/16/24 ABHISHEK ALEGRIA During your visit today, we recorded the following information about you: Janna Luong 07/16/2024 12:52 PM Signed Received faxed medical records from [place] [facility], uploaded under scanned documents. Per Cover sheet Images uploaded to PACS Allergies As of Date: 07/16/2024 Noted Allergy Reaction BEES 01/06/2014 4 - Hives 10 - Anaphylaxis NIACIN 01/06/2014 16 - Unknown RAMIPRIL 11/22/2021 18 - Angioedema Date Reviewed: 07/05/2022 Reviewed by: Reina Rodríguez PA-C - Fully Assessed Prescriptions as of 07/16/2024 - apixaban (ELIQUIS) 5 mg tab(s) Take 1 tablet by mouth twice daily. - nitroglycerin sublingual (NITROQUICK) 0.4 mg SL tablet Dissolve 0.4 mg under the tongue every 5 minutes as needed for chest pain. - metoprolol tartrate, short acting, (LOPRESSOR) 25 mg tablet Take 12.5 mg by mouth twice daily. - amLODIPine (NORVASC) 2.5 mg tablet Take 2.5 mg by mouth once daily. - clopidogrel (PLAVIX) 75 mg tablet Take 1 tablet by mouth once daily. May transfer subsequent refills to preferred pharmacy - MAGNESIUM ORAL Take 500 mg by mouth once daily. - VITAMIN B COMPLEX-100 ORAL Take 1 tablet by mouth once daily. - ubidecarenone/vitamin E mixed (COQ10 SG 100 ORAL) Take 100 mg by mouth once daily. - latanoprost (XELPROS) 0.005 % ophthalmic emulsion Use 1 Drop in both eyes daily at bedtime. - cholecalciferol (VITAMIN D3) 1,000 unit tab tablet Take 1,000 Units by mouth once daily. - levothyroxine (SYNTHROID) 100 mcg tablet Take 100 mcg by mouth once daily. - CRESTOR 10 mg tablet Take 5 mg by mouth once daily. - omega-3 fatty acids 1,000 mg cap Take 2 g by mouth twice daily. - Cinnamon Bark 500 mg cap Take 1,000 mg by mouth once daily. - MULTI-VITAMIN ORAL Take 1 tablet by mouth once daily. 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 [address] Echo Complete 06/29/24 0901 MR#: [id number] Acct: [id number] Name: СЕРГЕЙ ALMEIDA Rep #: [id number] : 1945 79 From: Dax Rodriguez MD Attending Dr: Dr. Dax Rodriguez MD Status: BARON PURDY Ordering Dr: Dax Rodriguez MD Date: 06/29/24 Location: [facility] Sex: M C Admitted: Reason For Study Reason For Study: MVP Procedure This was a 2D Doppler, Color Flow transthoracic echocardiogram. Exam performed in department. Left Ventricle Normal LV size. The left ventricular ejection fraction is 70 %. No regional wall motion abnormalities noted. Right Ventricle Normal RV size. Normal systolic function. Atria The left atrium is mildly enlarged. Normal right atrium. Mitral Valve Percutaneous [id number] repair with a mitral valve clip, appears to be stable. Mild (1+) mitral valve insufficiency. Tricuspid Valve Normal tricuspid valve. Mild to moderate (1-2+) tricuspid valve insufficiency. Pulmonary artery systolic pressure is 43 mmHg. Aortic Valve Trisinus/trileaflet aortic valve. Mild (1+) aortic valve insufficiency. Pulmonic Valve Normal pulmonic valve. Great Vessels Normal aortic root. The pulmonary artery is normal size. Inferior vena cava collapse with respiration. Pericardium/Pleural No pericardial effusion. MMode/2D Measurements Calculations LVIDd: 5.2 cm IVSd: 0.92 cm Ao root diam: 3.3 cm LVIDs: 2.9 cm LVPWd: 0.92 cm RVDd: 5.1 cm FS: 44.2 % LAV(MOD-bp): 68.1 ml RVOT diam: 2.8 cm LVAd ap4: 28.7 cm2 LAV(MOD-bp) Indexed: 34.5 ml/m2 LVLd ap4: 7.2 cm LAV(MOD-sp2): 66.9 ml EDV(MOD-sp4): 93.6 ml LAV(MOD-sp4): 66.8 ml EDV(sp4-el): 96.9 ml LVAs ap4: 14.4 cm2 LVLs ap4: 5.9 cm ESV(MOD-sp4): 29.6 ml ESV(sp4-el): 30.0 ml EF(MOD-sp4): 68.4 % EF(sp4-el): 69.0 % SV(MOD-sp4): 64.0 ml SV(sp4-el): 66.9 ml LA A4 area: 23.3 cm2 SI(MOD-sp4): 32.4 ml/m2 LA dimension(2D): 4.3 cm RA A4 area: 18.0 cm2 TAPSE: 2.3 cm Time Measurements MV dec time: 0.30 sec Doppler Measurements Calculations MV E max michael: 153.0 cm/sec Lat Peak E' Michael: 5.7 cm/sec Med Peak E' Michael: 6.3 cm/sec MV A max michael: 144.9 cm/sec E/E' lat: 26.6 E/E' med: 24.3 MV E/A: 1.1 MV V2 max: 164.2 cm/sec Ao V2 max: 154.4 cm/sec MV max P.8 mmHg MV dec slope: 517.1 cm/sec2 Ao max P.5 mmHg MV V2 mean: 84.8 cm/sec Ao V2 mean: 100.0 cm/sec MV mean P.7 mmHg Ao mean P.7 mmHg MV V2 VTI: 59.3 cm Ao V2 VTI: 36.9 cm AV (velocity ratio): 0.62 AI max michael: 384.6 cm/sec LV V1 max: 101.5 cm/sec PA V2 max: 169.0 cm/sec AI max P.3 mmHg LV V1 max P.1 mmHg PA V2 mean: 121.5 cm/sec LV V1 mean P.3 mmHg PA mean PG (full): 6.0 mmHg AI dec slope: 210.1 cm/sec2 LV V1 mean: 71.7 cm/sec AI P1/2t: 536.2 msec LV V1 VTI: 22.9 cm PI end-d michael: 62.7 cm/sec SV(RVOT): 65.6 ml TR max michael: 314.9 cm/sec TR max P.7 mmHg ECHO/Echo Complete Interpretation Summary Normal LV size. The left ventricular ejection fraction is 70 %. The left atrium is mildly enlarged. Percutaneous hkei-dv-szah repair with a mitral valve clip, appears to be stable. Mild (1+) mitral valve insufficiency. Ordering Physician: Dax Rodriguez Referring Physician: Hilton Marcial Performed By: Amber Meza RDCS, RVT 06/29/24 1029 Date Dax Rodriguez MD CC: Dr. Dax Rodriguez MD; Dr. Hilton Jay DO Date Dictated: 06/29/24 09 Date Transcribed: 06/29/24 102 [employer] Computer [employer] Teacher: Signed Normal [facility] Echocardiogram study reportO rdered By: Dax Rodriguez on 06-29-2024 Study report [facility] [address] [place] [address] Echo Complete 06/29/24900 MR#: [id number] Acct: [id number] Name: СЕРГЕЙ ALMEIDA Rep #:[id number] : 1945 79 From: Dax Rajput Attending Dr: MD Samir Garcia tatus: BARON DYER Ordering Dr: Dax Rodriguez MD Date: 08/18 Location: [facility] Sex: M C Admitted: Reason For Study Reason For Study: MVP Procedure This was a 2D Doppler, Color Flow transthoracic echocardiogram. Exam performed in department. Left Ventricle Normal LV size. The left ventricular ejection fraction is 70 %. No regional wallmotion abnormalities noted. Right Ventricle Normal RV size. Normal systolic function. Atria The left atrium is mildly enlarged. Normal right atrium. Mitral Valve Percutaneous inhq-vb-uzsm repair with a mitral valve clip, appears to be stable.Mild (1+) mitral valve insufficiency. Tricuspid Valve Normal tricuspid valve. Mild to moderate (1-2+) tricuspid valve insufficiency. Pulmonary artery systolic pressure is 43 mmHg. Aortic Valve Trisinus/trileaflet aortic valve. Mild (1+) aortic valve insufficiency. Pulmonic Valve Normal pulmonic valve. Great Vessels Normal aortic root. The pulmonary artery is normal size. Inferior vena cava collapse with respiration. Pericardium/Pleural No pericardial effusion. MMode/2D Measurements & Calculations LVIDd: 5.2 cm IVSd: 0.92 cm Ao root diam: 3.3 cm LVIDs: 2.9 cm LVPWd: 0.92 cm RVDd: 5.1 cm FS: 44.2 % LAV(MOD-bp): 68.1 ml RVOT diam: 2.8 cm LVAd ap4: 28.7 cm2 LAV(MOD-bp) Indexed: 34.5 ml/m2 LVLd ap4: 7.2 cm LAV(MOD-sp2): 66.9 ml EDV(MOD-sp4): 93.6 ml LAV(MOD-sp4): 66.8 ml EDV(sp4-el): 96.9 ml LVAs ap4: 14.4 cm2 LVLs ap4: 5.9 cm ESV(MOD-sp4): 29.6 ml ESV(sp4-el): 30.0 ml EF(MOD-sp4): 68.4 % EF(sp4-el): 69.0 % SV(MOD-sp4): 64.0 ml SV(sp4-el): 66.9 ml LA A4 area: 23.3 cm2 SI(MOD-sp4): 32.4 ml/m2 LA dimension(2D): 4.3 cm RA A4 area: 18.0 cm2 TAPSE: 2.3 cm Time Measurements MV dec time: 0.30 sec Doppler Measurements & Calculations MV E max michael: 153.0 cm/sec Lat Peak E' Michael: 5.7 cm/sec Med Peak E' Michael: 6.3 cm/sec MV A max michael: 144.9 cm/sec E/E' lat: 26.6 E/E' med: 24.3 MV E/A: 1.1 MV V2 max: 164.2 cm/sec Ao V2 max: 154.4 cm/sec MV max P.8 mmHg MV dec slope: 517.1 cm/sec2 Ao max P.5 mmHg MV V2 mean: 84.8 cm/sec Ao V2 mean: 100.0 cm/sec MV mean P.7 mmHg Ao mean P.7 mmHg MV V2 VTI: 59.3 cm Ao V2 VTI: 36.9 cm AV (velocity ratio): 0.62 AI max michael: 384.6 cm/sec LV V1 max: 101.5 cm/sec PA V2 max: 169.0 cm/sec AI max P.3 mmHg LV V1 max P.1 mmHg PA V2 mean: 121.5 cm/sec LV V1 mean P.3 mmHg PA mean PG (full): 6.0 mmHg AI dec slope: 210.1 cm/sec2 LV V1 mean: 71.7 cm/sec AI P1/2t: 536.2 msec LV V1 VTI: 22.9 cm PI end-d michael: 62.7 cm/sec SV(RVOT): 65.6 ml TR max michael: 314.9 cm/sec TR max P.7 mmHg ECHO/Echo Complete Interpretation Summary Normal LV size. The left ventricular ejection fraction is 70 %. The left atrium is mildly enlarged. Percutaneous zinh-uq-ywvw repair with a mitral valve clip, appears to be stable. Mild (1+) mitral valve insufficiency. Ordering Physician: Dax Rodriguez Referring Physician: Hilton Marcial Performed By: Amber Meza, TOD, RVT 06/29/24 1029 Date _ Dax Rodriguez MD CC: Dr. Dax Rodriguez MD; Dr. Hilton Jay DO ~ Date Dictated: 06/29/24 09 Date Transcribed: 06/29/24 1029 [employer] Computer [employer] Teacher: Signed [facility] Work Phone: Urgent Care Visit Reporton 1 04-08-2023 Urgent Care Visit Report [facility] [address], [address] [place] [address] OFFICE VISIT Date of Service: 02/06/24 MR#: [id number] Acct: [id number] Name: СЕРГЕЙ ALMEIDA Rep #: [id number] : 1945 Provider: DANIKA Devi Age/Sex: 78/M Location: [facility] Status: Signed Intake Vital Signs 10/30/23 09:26 02/06/24 11:32 Height 5 ft 10 in 5 ft 10 in Weight: 170 lb 6 oz 175 lb 2 oz BMI 24.4 25.1 BP 149/77 H 120/70 Blood Pressure Location Lt brachial Position Sitting Sitting Respiration 16 Pulse 49 L 70 Pulse Source Monitor Temp 97.7 F L Temp Source Oral Pulse Oximetry (%) 98 Oxygen Delivery Method room air Intake Visit Reasons: COUGH SNEEZING Chief Complaint: MORALES, cough, decreased appetite Accompanied by: Self Allergies bee venom protein (honey bee) Allergy (Unknown, Verified 02/06/24 11:32) hives/anaphylaxis ramipril Allergy (Verified 02/06/24 11:32) Angioedema Medications ???Medication ???Instructions ???Recorded ???Confirmed ???Type multivitamin with folic acid 400 1 tab PO DAILY SUPPLEMENT 01/14/14 02/06/24 History mcg tablet latanoprost 0.005 % eye drops 1 drp EACH EYE QHS EYES 01/03/17 02/06/24 History omega-3 fatty acids-fish oil 684 1 ea PO DAILY SUPPLEMENT 01/03/17 02/06/24 History mg-1,200 mg capsule,delayed release cinnamon bark 500 mg capsule 500 mg PO DAILY 10/07/18 02/06/24 History magnesium oxide 500 mg capsule 500 mg PO DAILY 10/07/18 02/06/24 History vitamin B complex 1 tab PO DAILY 10/07/18 02/06/24 History epinephrine 0.3 mg/0.3 mL 0.3 mg IM X1 PRN Allergic Reaction 09/20/21 02/06/24 History injection, auto-injector cholecalciferol (vitamin D3) 62.5 125 mcg PO DAILY 05/07/22 02/06/24 History mcg (2,500 unit) capsule coenzyme Q10 100 mg tablet 100 mg PO DAILY 08/16/22 02/06/24 History apixaban 5 mg tablet (Eliquis) 5 mg PO BID #180 tabs 07/01/23 02/06/24 Rx rosuvastatin 5 mg tablet 5 mg PO QHS cholesterol #90 tabs 08/20/23 02/06/24 Rx amlodipine 5 mg tablet 5 mg PO DAILY #90 tabs 08/22/23 02/06/24 Rx levothyroxine 100 mcg tablet 100 mcg PO DAILY THYROID #90 tabs 08/22/23 02/06/24 Rx metoprolol tartrate 25 mg tablet 12.5 mg (1/2 x 25 mg) PO BID BP 08/22/23 02/06/24 Rx #90 tabs nitroglycerin 0.4 mg sublingual 0.4 mg sublingual Q5M PRN chest 08/22/23 02/06/24 Rx tablet (Nitrostat) pain #25 tabs clopidogrel 75 mg tablet 75 mg PO DAILY #90 tabs 08/29/23 02/06/24 Rx azithromycin 250 mg tablet See Rx Instructions PO .COMPLEX #6 02/06/24 02/06/24 Rx tabs benzonatate 100 mg capsule 200 mg (2 x 100 mg) PO TID PRN 02/06/24 02/06/24 Rx cough #30 caps Have you fallen in the past year?: No Nurse's Note: Patient has been coughing and sneezing for 3-4 days. Patient started coughing up yellow snot this morning. [facility] Medical History Wears hearing aid in both ears Incontinence of urine Old inferolateral myocardial infarction Nonrheumatic mitral (valve) insufficiency Essential hypertension Hypothyroidism 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 Hyperlipidemia Atherosclerotic heart disease of [place] coronary artery without angina pectoris Nonrheumatic mitral (valve) prolapse Elevated PSA Urgency-frequency syndrome Prostate cancer Surgical History S/P mitral valve clip implantation Status post mitral valve repair (06/26/22) History of coronary artery stent placement (09/14/21) H/O coronary artery bypass surgery (11/1994) H/O prostatectomy History of left heart catheterization (04/30/21) Family History Father , of Rohini's disease Burleson's disease Mother , Age 60 of [place] CAD (coronary artery disease) Myocardial infarction Brother CAD (coronary artery disease) history of cabg Brother CAD (coronary artery disease) Stented coronary artery Diabetes Sister CAD (coronary artery disease) Myocardial infarction Hypertension Social History Smoking Status: Never smoker alcohol intake: current alcohol intake frequency: other Alcohol type: beer and wine caffeine: Yes Type: coffee Number of servings: 3 HPI HPI Chief Complaint: MORALES, cough, decreased appetite Details: СЕРГЕЙ ALMEIDA, is a 78 M who presents to the office today for complaint of headache, cough and congestion for the past week. Patient states that has been worsening somewhat. Patient denies hemoptysis, shortness of breath or difficulty breathing. No fever, chills, sweats. No nausea, vomiting or diarrhea. No loss of taste or smell. No other associated symptoms or alleviating/aggravat (more content not included)... Normal [facility] Basic Metabolic Profile (BMP )on 10-30-2023 BUN/CRE 17.1 RATIO Normal 10-20 [facility] Comment on above: Performed By: #### L 500.4100, L500.3400, L500.2500 #### [facility] [address] [place], [address] CA,Total 9.4 mg/dL Normal 8.5-10.1 [facility] Comment on above: Performed By: #### L 500.4100, L500.3400, L500.2500 #### [facility] [address] [place], [address] Chloride [Moles/Vol] 110 mmol/L High 98-107 [facility] Comment on above: Performed By: #### L 500.4100, L500.3400, L500.2500 #### [facility] [address] [place], [address] CO2 [Moles/Vol] 27.0 mmol/L Normal 21.0-32.0 [facility] Comment on above: Performed By: #### L 500.4100, L500.3400, L500.2500 #### [facility] [address] [place], [address] Creatinine [Mass/Vol] 1.17 mg/dL Normal 0.70-1.30 [facility] Comment on above: Result Comment: The validity of the calculated GFR GFRAA in patients over 70 years has not been determined. Clinical correlation is essential. Performed By: #### L 500.4100, L500.3400, L500.2500 #### [facility] [address] [place], [address] EST GFR - AA 77 mL/min Normal >60 [facility] Comment on above: Result Comment: Afri can [place] Citizen GFR Calc Performed By: #### L 500.4100, L500.3400, L500.2500 #### [facility] [address] [place], [address] GAP 3 Low 5-15 [facility] Comment on above: Performed By: #### L 500.4100, L500.3400, L500.2500 #### [facility] [address] [place], [address] GFR/1.73 sq M.predicted among non-blacks MDRD (S/P/Bld) [Vol rate/Area] 64 mL/min/{1.73_m2} Normal >60 [facility] Comment on above: Result Comment: Non- GFR Calc Performed By: #### L 500.4100, L500.3400, L500.2500 #### [facility] [address] [place], [address] Glucose [Mass/Vol] 97 mg/dL Normal 74-106 [facility] Comment on above: Performed By: #### L 500.4100, L500.3400, L500.2500 #### [facility] [address] [place], [address] Potassium [Moles/Vol] 4.3 mmol/L Normal 3.5-5.1 [facility] Comment on above: Performed By: #### L 500.4100, L500.3400, L500.2500 #### [facility] [address] [place], [address] Sodium [Moles/Vol] 140 mmol/L Normal 136-145 [facility] Comment on above: Performed By: #### L 500.4100, L500.3400, L500.2500 #### [facility] [address] [place], [address] Urea nitrogen [Mass/Vol] 20 mg/dL High 7-18 [facility] Comment on above: Performed By: #### L 500.4100, L500.3400, L500.2500 #### [facility] [address] [place], [address] Cardiology Visit Reporton Cardiology Visit Report [facility] [address] [place] [address] OFFICE VISIT Date of Service: 10/30/23 MR#: [id number] Acct: [id number] Name: СЕРГЕЙ ALMEIDA Rep #: [id number] : 1945 Provider: Dr. Dax Rodriguez MD Age/Sex: 78/M Location: [facility] Status: Signed HPI HPI History of Present Illness Details: This is a 78-year-old gentleman who presents here today for a cardiovascular follow-up visit. He has a history of coronary artery disease status post coronary bypass surgery with a left internal mammary artery to left anterior descending artery saphenous vein graft to diagonal branch and obtuse marginal branch. He also has a history of mitral valve prolapse as well as mitral regurgitation. In February of 2016 he underwent a heart catheterization which demonstrated patency of his left internal mammary artery to the left anterior descending artery as well as the saphenous vein graft to diagonal branch. The saphenous vein graft to the obtuse marginal branch was occluded. Medical management was recommended. His most recent cardiac catheterization from 04/30/2021 demonstrated 70% stenosis in his left main ostial. Moderate mitral valve prolapse, and mitral valve insufficiency-grade 3. 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 He recently underwent a successful LORENZA, at the [facility] where he underwent a successful IVUS guided PCI of the ostial left main into the circumflex artery with a 4.0 x 15 mm drug-eluting stent. He had a dedicated cardiac CT with 40 dynamic imaging and it demonstrated prolapse of the posterior leaflet. It was felt that with his preserved LV function and his BNP returning back to normal on as needed Lasix he should continue that with yearly echocardiograms. He presented to the hospital approximately a week ago with shortness of breath with exertion and was noted to be in atrial fibrillation with rapid ventricular response rate. He was started on Eliquis and had a repeat echocardiogram which demonstrated an ejection fraction of 60%, stage III diastolic dysfunction, severely enlarged left atrium, moderately severe anteriorly directed mitral regurgitation with mitral valve prolapse of the posterior leaflet and pulmonary artery systolic pressure now increased to 58 mmHg. He was sent up to the [facility] for the mitral valve clip and he underwent transcatheter mitral valve repair with 2X TR MitraClip devices on July 23, 2022. He subsequently had an echocardiogram done after that which demonstrated an ejection fraction of 60% and the peak and mean gradient across the mitral valve was 10 and 3 mmHg respectively. He has done well he has been in cardiac rehabilitation. His blood pressure he says has been somewhat elevated. His physical exam demonstrates clear lung doll regular rate and rhythm midsystolic click with a 1/6 systolic murmur and no pedal edema. Intake Vital Signs 02/11/23 08:52 10/11/23 13:48 10/30/23 09:26 Height 5 ft 10 in 5 ft 10 in 5 ft 10 in Weight: 170 lb 6 oz BMI 24.4 BP 149/77 H Blood Pressure Location Lt brachial Position Sitting Respiration 16 Pulse 49 L Pulse Source Monitor Intake Visit Reasons: 8 m fu w [employer] per [employer] Bilingual Office Assistant Required: No Accompanied by: Self Is patient in pain?: No Allergies bee venom protein (honey bee) Allergy (Unknown, Verified 10/30/23 09:29) hives/anaphylaxis ramipril Allergy (Verified 10/30/23 09:29) Angioedema Medications ???Medication ???Instructions ???Recorded ???Confirmed ???Type multivitamin with folic acid 400 1 tab PO DAILY SUPPLEMENT 01/14/14 10/30/23 History mcg tablet latanoprost 0.005 % eye drops 1 drp EACH EYE QHS EYES 01/03/17 10/30/23 History omega-3 fatty acids-fish oil 684 1 ea PO DAILY SUPPLEMENT 01/03/17 10/30/23 History mg-1,200 mg capsule,delayed release cinnamon bark 500 mg capsule 500 mg PO DAILY 10/07/18 10/30/23 History magnesium oxide 500 mg capsule 500 mg PO DAILY 10/07/18 10/30/23 History vitamin B complex 1 tab PO DAILY 10/07/18 10/30/23 History epinephrine 0.3 mg/0.3 mL 0.3 mg IM X1 PRN Allergic Reaction 09/20/21 10/30/23 History injection, auto-injector cholecalciferol (vitamin D3) 62.5 125 mcg PO DAILY 05/07/22 10/30/23 History mcg (2,500 unit) capsule coenzyme Q10 100 mg tablet 100 mg PO DAILY 08/16/22 10/30/23 History apixaban 5 mg tablet (Eliquis) 5 mg PO BID #180 tabs 07/01/23 10/30/23 Rx rosuvastatin 5 mg tablet 5 mg PO QHS cholesterol #90 tabs 08/20/23 10/30/23 Rx amlodipine 5 mg tablet 5 mg PO DAILY #90 tabs 08/22/23 10/30/23 Rx levothyroxine 100 mcg tablet 100 mcg PO DAILY THYROID #90 t (more content not included)... Normal [facility] Lipid Profileon 10-30-2023 Cholesterol [Mass/Vol] 136 mg/dL Normal [facility] Comment on above: Result Comment: <200 mg/dL Desirable 200-240 mg/dL Borderline >240 mg/dL High Risk Performed By: #### L 500.4100, L500.3400, L500.2500 #### [facility] [address] [place], [address] Cholesterol in HDL [Mass/Vol] 42 mg/dL Normal [facility] Comment on above: Result Comment: The drugs N-Acetylcysteine and Metamizole may falsely depress this assay. Reference Range HDL <40 mg/dL Low HDL Cholesterol HDL >or= 60 mg/dL High HDL Cholesterol Performed By: #### L 500.4100, L500.3400, L500.2500 #### [facility] [address] [place], [address] Cholesterol in LDL [Mass/Vol] 72 mg/dL Normal 0-130 [facility] Comment on above: Performed By: #### L 500.4100, L500.3400, L500.2500 #### [facility] [address] [place], [address] Cholesterol in VLDL [Mass/Vol] 22 mg/dL Normal 5-40 [facility] Comment on above: Performed By: #### L 500.4100, L500.3400, L500.2500 #### [facility] [address] [place], [address] Triglyceride [Mass/Vol] 111 mg/dL Normal [facility] Comment on above: Result Comment: The drugs N-Acetylcysteine and Metamizole may falsely depress this assay. Serum Triglycerides Reference Interval Normal <150 mg/dL Borderline high 150 - 199 mg/dL High 200 - 499 mg/dL Very High > or = 500 mg/dL Performed By: #### L 500.4100, L500.3400, L500.2500 #### [facility] [address] [place], [address] Liver Profileon 10-30-2023 Albumin [Mass/Vol] 3.6 g/dL Normal 3.2-5.0 [facility] Comment on above: Performed By: #### L 500.4100, L500.3400, L500.2500 #### [facility] [address] [place], [address] ALK P 52 U/L Normal 45-117 [facility] Comment on above: Performed By: #### L 500.4100, L500.3400, L500.2500 #### [facility] [address] [place], [address] ALT [Catalytic activity/Vol] 32 U/L Normal 16-61 [facility] Comment on above: Performed By: #### L 500.4100, L500.3400, L500.2500 #### [facility] [address] [place], [address] AST [Catalytic activity/Vol] 24 U/L Normal 15-37 [facility] Comment on above: Performed By: #### L 500.4100, L500.3400, L500.2500 #### [facility] [address] [place], [address] Bilirubin [Mass/Vol] 1.50 mg/dL High 0.20-1.00 [facility] Comment on above: Result Comment: For patients on eltrombopag therapy, use of Dimension [place] TBIL is not recommended. Performed By: #### L 500.4100, L500.3400, L500.2500 #### [facility] [address] [place], [address] Bilirubin.direct [Mass/Vol] 0.35 mg/dL High 0.00-0.30 [facility] Comment on above: Performed By: #### L 500.4100, L500.3400, L500.2500 #### [facility] [address] [place], [address] Globulin (S) [Mass/Vol] 3.7 g/dL Normal 2.2-4.2 [facility] Comment on above: Performed By: #### L 500.4100, L500.3400, L500.2500 #### [facility] [address] [place], [address] T PROT 7.3 g/dL Normal 6.4-8.2 [facility] Comment on above: Performed By: #### L 500.4100, L500.3400, L500.2500 #### [facility] [address] [place], [address] Urgent Care Visit Reporton 0 10-11-2023 Urgent Care Visit Report [facility] [address], [address] [place] [address] OFFICE VISIT Date of Service: 10/11/23 MR#: [id number] Acct: [id number] Name: СЕРГЕЙ ALMEIDA Rep #: [id number] : 1945 Provider: DANIKA Quinn Age/Sex: 78/M Location: [facility] Status: Signed Intake Vital Signs 02/11/23 08:52 10/11/23 13:48 Height 5 ft 10 in 5 ft 10 in Weight: 173 lb BMI 24.8 BP 152/78 H Blood Pressure Location Lt brachial Position Sitting Respiration 17 Pulse 62 Pulse Source NIBP Temp 98.6 F Temp Source Temporal Pulse Oximetry (%) 99 Oxygen Delivery Method room air Intake Visit Reasons: EXPOSED TO COVID Chief Complaint: MORALES, cough, decreased appetite Bilingual Office Assistant Required: No Is patient in pain?: Yes Allergies bee venom protein (honey bee) Allergy (Unknown, Verified 10/11/23 13:49) hives/anaphylaxis ramipril Allergy (Verified 10/11/23 13:49) Angioedema Medications ???Medication ???Instructions ???Recorded ???Confirmed ???Type multivitamin with folic acid 400 1 tab PO DAILY SUPPLEMENT 01/14/14 10/11/23 History mcg tablet latanoprost 0.005 % eye drops 1 drp EACH EYE QHS EYES 01/03/17 10/11/23 History omega-3 fatty acids-fish oil 684 1 ea PO DAILY SUPPLEMENT 01/03/17 10/11/23 History mg-1,200 mg capsule,delayed release cinnamon bark 500 mg capsule 500 mg PO DAILY 10/07/18 10/11/23 History magnesium oxide 500 mg capsule 500 mg PO DAILY 10/07/18 10/11/23 History vitamin B complex 1 tab PO DAILY 10/07/18 10/11/23 History epinephrine 0.3 mg/0.3 mL 0.3 mg IM X1 PRN Allergic Reaction 09/20/21 10/11/23 History injection, auto-injector cholecalciferol (vitamin D3) 62.5 125 mcg PO DAILY 05/07/22 10/11/23 History mcg (2,500 unit) capsule coenzyme Q10 100 mg tablet 100 mg PO DAILY 08/16/22 10/11/23 History apixaban 5 mg tablet (Eliquis) 5 mg PO BID #180 tabs 07/01/23 10/11/23 Rx rosuvastatin 5 mg tablet 5 mg PO QHS cholesterol #90 tabs 08/20/23 10/11/23 Rx amlodipine 5 mg tablet 5 mg PO DAILY #90 tabs 08/22/23 10/11/23 Rx levothyroxine 100 mcg tablet 100 mcg PO DAILY THYROID #90 tabs 08/22/23 10/11/23 Rx metoprolol tartrate 25 mg tablet 12.5 mg (1/2 x 25 mg) PO BID BP 08/22/23 10/11/23 Rx #90 tabs nitroglycerin 0.4 mg sublingual 0.4 mg sublingual Q5M PRN chest 08/22/23 10/11/23 Rx tablet (Nitrostat) pain #25 tabs clopidogrel 75 mg tablet 75 mg PO DAILY #90 tabs 08/29/23 10/11/23 Rx Have you fallen in the past year?: No Nurse's Note: MORALES, cough, decreased appetite x 24 hours. exposed to covid 5 days ago. pt concerned for covid. pt requests PCR testing. pt and advised his insurance may not cover PCR, they typically prefer rapid covid. pt and discussed and they wish to have PCR despite potential to have outstanding balance for this visit after billing. [facility] [facility] Medical History Incontinence of urine Old inferolateral myocardial infarction Nonrheumatic mitral (valve) insufficiency Essential hypertension Hypothyroidism 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 Hyperlipidemia Atherosclerotic heart disease of [place] coronary artery without angina pectoris Nonrheumatic mitral (valve) prolapse Elevated PSA Urgency-frequency syndrome Prostate cancer Surgical History S/P mitral valve clip implantation Status post mitral valve repair (06/26/22) History of coronary artery stent placement (09/14/21) H/O coronary artery bypass surgery (11/1994) H/O prostatectomy History of left heart catheterization (04/30/21) Family History Father , of Rohini's disease Rohini's disease Mother , Age 60 of [place] CAD (coronary artery disease) Myocardial infarction Brother CAD (coronary artery disease) history of cabg Brother CAD (coronary artery disease) Stented coronary artery Diabetes Sister CAD (coronary artery disease) Myocardial infarction Hypertension Social History Smoking Status: Never smoker alcohol intake: current alcohol intake frequency: other Alcohol type: beer and wine caffeine: Yes Type: coffee Number of servings: 3 HPI HPI Chief Complaint: MORALES, cough, decreased appetite Details: СЕРГЕЙ ALMEIDA, is a 78 M who presents to the office today for upper respiratory symptoms. Patient notes primary concern for headache, cough, and decreased appetite over the past 24 hours. He notes direct contact with an individual positive for COVID-19 and is concerned for infection himself. Patient notes slight cough but denies SOB, dyspnea, and chest discomfort. Patient has not utilized any treatm (more content not included)... Normal [facility] Basophil percentageOrdered B y: [place] Michael on 02-05-2023 Bilirubin [Mass/Vol] 1.50 mg/dL 0.20-1.00 [facility] Comment on above: For patients on eltr ombopag therapy, use of Dimension [place] TBIL is not recommended. Cholesterol [Mass/Vol] 132 mg/dL <200 [facility] Comment on above: <200 mg/dL Desirable 200-240 mg/dL Borderline >240 mg/dL High Risk Protein [Mass/Vol] 7.4 g/dL 6.4-8.2 [facility] Triglyceride [Mass/Vol] 122 mg/dL <199 [facility] Comment on above: The drugs N-Acetylcy steine and Metamizole may falsely depress this assay.Serum Triglycerides Reference Interval Normal <150 mg/dL Borderline high 150 - 199 mg/dL High 200 - 499 mg/dL Very High > or = 500 mg/dL Direct bilirubinOrdered By: Dax Rodriguez on 02-05-2023 Bilirubin.direct [Mass/Vol] 0.31 mg/dL 0.00-0.30 [facility] Laboratory - Chemistry and C hemistry - challengeOrdered By: Dax Rodriguez on 02-05-2023 ALP [Catalytic activity/Vol] 48 U/L 45-117 [facility] ALT [Catalytic activity/Vol] 37 U/L 16-61 [facility] Globulin (S) [Mass/Vol] 3.6 g/dL 2.2-4.2 [facility] Serum or plasma albumin vanessa urement (mass/volume)Ordered By: Dax Rodriguez on 02-05-2023 Albumin [Mass/Vol] 3.8 g/dL 3.2-5.0 [facility] Serum or plasma cholesterol in HDL measurement (mass/volume)Ordered By: Dax Rodriguez on 02-05-2023 Cholesterol in HDL [Mass/Vol] 39 mg/dL >40 [facility] Comment on above: The drugs N-Acetylcy steine and Metamizole may falsely depress this assay. Reference Range HDL <40 mg/dL Low HDL Cholesterol HDL >or= 60 mg/dL High HDL Cholesterol Serum or plasma cholesterol in VLDL measurement (mass/volume)Ordered By: Dax Rodriguez on 02-05-2023 Cholesterol in VLDL [Mass/Vol] 24 mg/dL 5-40 [facility] Serum or plasma low density lipoprotein (LDL) cholesterol measurement (mass/volume)Ordered By: Dax Rodriguez on 02-05-2023 Cholesterol in LDL [Mass/Vol] 69 mg/dL 0-130 [facility] Thin prep Papanicolaou smear with manual screeningOrdered By: Dax Rodriguez on 02-05-2023 Thin prep Papanicolaou smear with manual screening 27 U/L 15-37 [facility] Absolute lymphocyte countOrd ered By: Luis Alberto Braun on 09-27-2022 Lymphocytes Auto (Unsp spec) [#/Vol] 1.95 10*3/uL 0.83-4.51 [facility] Basophil percentageOrdered B y: Luis Alberto Braun on 09-27-2022 Basophils/100 WBC (Bld) 0.8 % 0-1 [facility] Chloride [Moles/Vol] 110 mmol/L 98-107 [facility] Eosinophils/100 WBC (Bld) 5.6 % 0-5 [facility] Glucose [Mass/Vol] 120 mg/dL 74-106 [facility] Comment on above: Fasting Glucose resu lt from 100 to 125 mg/dL suggests IMPAIRED HOMEOSTASIS per A.D.A. criteria. Neutrophils (Bld) [#/Vol] 4.1 10*3/uL 2.0-7.7 [facility] Neutrophils/100 WBC (Bld) 55.1 % 47-70 [facility] Potassium [Moles/Vol] 3.8 mmol/L 3.5-5.1 [facility] Sodium [Moles/Vol] 142 mmol/L 136-145 [facility] WBC (Bld) [#/Vol] 7.5 10*3/uL 4.4-11.0 [facility] Blood erythrocytes count (nu mber/volume)Ordered By: Luis Alberto Braun on 09-27-2022 RBC (Bld) [#/Vol] 4.94 10*6/uL 4.6-6.2 [facility] Blood hemoglobin measurement (mass/volume)Ordered By: Luis Alberto Braun on 09-27-2022 Hemoglobin (Bld) [Mass/Vol] 15.3 g/dL 13.0-16.5 [facility] Blood lymphocytes/100 leukoc ytesOrdered By: Luis Alberto Braun on 09-27-2022 Lymphocytes/100 WBC (Bld) 26.1 % 19-41 [facility] Blood monocytes/100 leukocyt esOrdered By: Luis Alberto Braun on 09-27-2022 Monocytes/100 WBC (Bld) 11.2 % 0-10 [facility] Blood platelet mean volumeOr dered By: Luis Alberto Braun on 09-27-2022 Platelet mean volume (Bld) [Entitic vol] 10.5 fL 6.2-12.0 [facility] Determination of erythrocyte mean corpuscular volume (MCV)Ordered By: Luis Alberto Braun on 09-27-2022 MCV (RBC) [Entitic vol] 92.3 fL 80-94 [facility] Hematocrit Auto (Bld) [Volum e fraction]Ordered By: Luis Alberto Braun on 09-27-2022 Hematocrit (Bld) [Volume fraction] 45.6 % 40-54 [facility] Laboratory - Chemistry and C hemistry - challengeOrdered By: Luis Alberto Braun on 09-27-2022 CO2 [Moles/Vol] 26.0 mmol/L 21.0-32.0 [facility] Magnesium [Mass/Vol] 2.2 mg/dL 1.6-2.6 [facility] Urea nitrogen/Creatinine [Mass ratio] 19.8 mg/mg 10-20 [facility] Laboratory - Hematology and Cell countsOrdered By: Luis Alberto Braun on 09-27-2022 Erythrocyte distribution width (RBC) [Entitic vol] 51.6 fL 35.1-43.9 [facility] Erythrocyte distribution width (RBC) [Ratio] 15.1 % 11.6-14.6 [facility] Immature granulocytes/100 WBC (Bld) 1.200 % 0.0-0.9 [facility] Comment on above: IG% - Immature Granu locytes (promyelocytes, myelocytes and metamyelocytes) > 1% indicates that a LEFT SHIFT is Present. MCH (RBC) [Entitic mass] 31.0 pg 27.0-32.0 [facility] Nucleated RBC/100 WBC (Bld) [Ratio] 0 % 0-5 [facility] MCHC Auto (RBC) [Mass/Vol]Or dered By: Luis Alberto Braun on 09-27-2022 MCHC (RBC) [Mass/Vol] 33.6 g/dL 32-36 [facility] No Panel InformationOrdered By: Luis Alberto Braun on 09-27-2022 Estimated Creatinine Clearance Calc 53.32 ml/min [facility] Estimated GFR (MDRD) Amer 78 mL/min >60 [facility] Comment on above: GFR Calc Estimated GFR (MDRD) Non-Af Amer 65 mL/min >60 [facility] Comment on above: Non- GFR Calc Thyroid Stimulating Hormone (TSH) 1.43 uIU/mL 0.358-3.74 [facility] Platelets bldOrdered By: Ulises Braun on 09-27-2022 Platelets (Bld) [#/Vol] 200 10*3/uL 150-450 [facility] Serum or plasma calcium vanessa urement (mass/volume)Ordered By: Luis Alberto Braun on 09-27-2022 Calcium [Mass/Vol] 9.2 mg/dL 8.5-10.1 [facility] Serum or plasma creatinine m easurement (mass/volume)Ordered By: Luis Alberto Braun on 09-27-2022 Creatinine [Mass/Vol] 1.16 mg/dL 0.70-1.30 [facility] Comment on above: The validity of the calculated GFR & GFRAA in patients over 70 years has not been determined. Clinical correlation is essential. Serum or plasma urea nitroge n measurement (mass/volume)Ordered By: Luis Alberto Braun on 09-27-2022 Urea nitrogen [Mass/Vol] 23 mg/dL 7-18 [facility] Thin prep Papanicolaou smear with manual screeningOrdered By: Luis Alberto Braun on 09-27-2022 Thin prep Papanicolaou smear with manual screening 6 - [facility] CBC W Auto Differential pane l (Bld)on 09-05-2022 Basophils (Bld) [#/Vol] 0.05 10*3/uL <0.11 k/uL [facility] Basophils/100 WBC (Bld) 0.6 % C [facility] Differential cell count method Nom (Bld) Auto [facility] Eosinophils (Bld) [#/Vol] 0.29 10*3/uL <0.46 k/uL [facility] Eosinophils/100 WBC (Bld) 3.4 % [facility] Erythrocyte distribution width (RBC) [Ratio] 15.1 % High 11.5 - 15.0 % [facility] Hematocrit (Bld) [Volume fraction] 46.5 % 39.0 - 51.0 % [facility] Hemoglobin (Bld) [Mass/Vol] 15.1 g/dL 13.0 - 17.0 g/dL [facility] Immature granulocytes (Bld) [#/Vol] 0.03 10*3/uL <0.10 k/uL [facility] Immature granulocytes/100 WBC (Bld) 0.4 % [facility] Lymphocytes (Bld) [#/Vol] 1.54 10*3/uL 1.00 - 4.00 k/uL [facility] Lymphocytes/100 WBC (Bld) 18.2 % [facility] MCH (RBC) [Entitic mass] 30.4 pg 26.0 - 34.0 pg [facility] MCHC (RBC) [Mass/Vol] 32.5 g/dL 30.5 - 36.0 g/dL [facility] MCV (RBC) [Entitic vol] 93.8 fL 80.0 - 100.0 fL [facility] Monocytes (Bld) [#/Vol] 0.89 10*3/uL High <0.87 k/uL [facility] Monocytes/100 WBC (Bld) 10.5 % C [facility] Neutrophils (Bld) [#/Vol] 5.66 10*3/uL 1.45 - 7.50 k/uL [facility] Neutrophils/100 WBC (Bld) 66.9 % [facility] Nucleated RBC (Bld) [#/Vol] <0.01 k/uL [facility] Nucleated RBC/100 WBC (Bld) [Ratio] 0.0 /100 WBC [facility] Platelet mean volume (Bld) [Entitic vol] 10.5 fL 9.0 - 12.7 fL [facility] Platelets (Bld) [#/Vol] 209 10*3/uL 150 - 400 k/uL [facility] RBC (Bld) [#/Vol] 4.96 10*6/uL 4.20 - 6.00 m/uL [facility] WBC (Bld) [#/Vol] 8.46 10*3/uL 3.70 - 11.00 k/uL [facility] Comprehensive metabolic 2000 panelon 09-05-2022 Albumin [Mass/Vol] 4.2 g/dL 3.9 - 4.9 g/dL [facility] ALP [Catalytic activity/Vol] 46 U/L 38 - 113 U/L [facility] ALT [Catalytic activity/Vol] 22 U/L 10 - 54 U/L [facility] Anion gap [Moles/Vol] 9 mmol/L 9 - 18 mmol/L [facility] AST [Catalytic activity/Vol] 28 U/L 14 - 40 U/L [facility] Bilirubin [Mass/Vol] 0.7 mg/dL 0.2 - 1 .3 mg/dL [facility] Calcium [Mass/Vol] 9.2 mg/dL 8.5 - 10. 2 mg/dL [facility] Chloride [Moles/Vol] 107 mmol/L High 97 - 10 5 mmol/L [facility] CO2 [Moles/Vol] 25 mmol/L 22 - 30 mmol/L [facility] Creatinine [Mass/Vol] 1.27 mg/dL High 0.73 - 1.22 mg/dL [facility] Estimated Glomerular Filtration Rate 57 mL/min/1.73m Low >=60 mL/min/1.7 3m [facility] Glucose [Mass/Vol] 100 mg/dL High 74 - 99 mg/dL [facility] Potassium [Moles/Vol] 4.7 mmol/L 3.7 - 5.1 mmol/L [facility] Protein [Mass/Vol] 6.6 g/dL 6.3 - 8.0 g/dL [facility] Sodium [Moles/Vol] 141 mmol/L 136 - 144 mmol/L [facility] Urea nitrogen [Mass/Vol] 19 mg/dL 9 - 24 mg/dL [facility] HIGH SENSITIVITY TROPONIN To n 09-05-2022 [place] High Sensitivity 34 ng/L High <12 ng/L [facility] NT PRO BNPon 09-05-2022 Natriuretic peptide.B prohormone N-Terminal [Mass/Vol] 163 pg/mL <450 pg/mL [facility] No Panel InformationOrdered By: LIU Caba on 07-08-2022 Prostate Specific Antigen Total < 0.01 ng/mL 0.0-4.0 [facility] Comment on above: This test was perfor med using the TPSA assay method for [employer] chemistry system. Values obtained with differentassay methods cannot be used interchangably.When changing PSA assays in the course of monitoring apatient, additional sequential testing should be carriedout to confirm baseline values. XR CHEST 2V FRONTAL/LATon [facility] Absolute lymphocyte countOrd ered By: Dr. Velazquez on 06-02-2022 Lymphocytes Auto (Unsp spec) [#/Vol] 2.09 10*3/uL 0.83-4.51 [facility] Basophil percentageOrdered B y: Dr. Velazquez on 06-02-2022 Basophils/100 WBC (Bld) 0.6 % 0-1 [facility] Chloride [Moles/Vol] 110 mmol/L 98-107 [facility] Eosinophils/100 WBC (Bld) 5.2 % 0-5 [facility] Glucose [Mass/Vol] 151 mg/dL 74-106 [facility] Comment on above: Fasting Glucose resu lt greater than or equal to 126 mg/dL suggests DIABETES MELLITUS per A.D.A. criteria. Neutrophils (Bld) [#/Vol] 3.8 10*3/uL 2.0-7.7 [facility] Neutrophils/100 WBC (Bld) 53.0 % 47-70 [facility] Potassium [Moles/Vol] 4.0 mmol/L 3.5-5.1 [facility] Sodium [Moles/Vol] 140 mmol/L 136-145 [facility] WBC (Bld) [#/Vol] 7.3 10*3/uL 4.4-11.0 [facility] Blood erythrocytes count (nu mber/volume)Ordered By: Dr. Velazquez on 06-02-2022 RBC (Bld) [#/Vol] 4.48 10*6/uL 4.6-6.2 [facility] Blood hemoglobin measurement (mass/volume)Ordered By: Dr. Velazquez on 06-02-2022 Hemoglobin (Bld) [Mass/Vol] 13.7 g/dL 13.0-16.5 [facility] Blood lymphocytes/100 leukoc ytesOrdered By: Dr. Velazquez on 06-02-2022 Lymphocytes/100 WBC (Bld) 28.8 % 19-41 [facility] Blood monocytes/100 leukocyt esOrdered By: Dr. Velazquez on 06-02-2022 Monocytes/100 WBC (Bld) 12.1 % 0-10 [facility] Blood platelet mean volumeOr dered By: Dr. Velazquez on 06-02-2022 Platelet mean volume (Bld) [Entitic vol] 10.5 fL 6.2-12.0 [facility] Determination of erythrocyte mean corpuscular volume (MCV)Ordered By: Dr. Velazquez on 06-02-2022 MCV (RBC) [Entitic vol] 94.2 fL 80-94 [facility] Hematocrit Auto (Bld) [Volum e fraction]Ordered By: Dr. Velazquez on 06-02-2022 Hematocrit (Bld) [Volume fraction] 42.2 % 40-54 [facility] Laboratory - Chemistry and C hemistry - challengeOrdered By: Dr. Velazquez on 06-02-2022 CO2 [Moles/Vol] 24.0 mmol/L 21.0-32.0 [facility] Natriuretic peptide B (Bld) [Mass/Vol] 120.7 pg/mL 0-100 [facility] Urea nitrogen/Creatinine [Mass ratio] 15.8 mg/mg 10-20 [facility] Laboratory - Hematology and Cell countsOrdered By: Dr. Velazquez on 06-02-2022 Erythrocyte distribution width (RBC) [Entitic vol] 47.8 fL 35.1-43.9 [facility] Erythrocyte distribution width (RBC) [Ratio] 13.8 % 11.6-14.6 [facility] Immature granulocytes/100 WBC (Bld) 0.300 % 0.0-0.9 [facility] Comment on above: IG% - Immature Granu locytes (promyelocytes, myelocytes and metamyelocytes) > 1% indicates that a LEFT SHIFT is Present. MCH (RBC) [Entitic mass] 30.6 pg 27.0-32.0 [facility] Nucleated RBC/100 WBC (Bld) [Ratio] 0 % 0-5 [facility] MCHC Auto (RBC) [Mass/Vol]Or dered By: Dr. Velazquez on 06-02-2022 MCHC (RBC) [Mass/Vol] 32.5 g/dL 32-36 [facility] No Panel InformationOrdered By: Dr. Velazquez on 06-02-2022 Troponin I High Sensitivity 11 pg/mL 3.0-78.0 [facility] Comment on above: Please Note: New Priya t Units and Gender Specific Reference Ranges. For more information see Policy Stat Procedure [place] High Sensitivity Troponin (TNIH) and attachments. Estimated Creatinine Clearance Calc 46.50 ml/min [facility] Estimated GFR (MDRD) Amer 67 mL/min >60 [facility] Comment on above: GFR Calc Estimated GFR (MDRD) Non-Af Amer 55 mL/min >60 [facility] Comment on above: Non- GFR Calc Platelets bldOrdered By: Dr. Velazquez on 06-02-2022 Platelets (Bld) [#/Vol] 196 10*3/uL 150-450 [facility] Serum or plasma calcium vanessa urement (mass/volume)Ordered By: Dr. Velazquez on 06-02-2022 Calcium [Mass/Vol] 8.5 mg/dL 8.5-10.1 [facility] Serum or plasma creatinine m easurement (mass/volume)Ordered By: Dr. Velazquez on 06-02-2022 Creatinine [Mass/Vol] 1.33 mg/dL 0.70-1.30 [facility] Comment on above: The validity of the calculated GFR & GFRAA in patients over 70 years has not been determined. Clinical correlation is essential. Serum or plasma urea nitroge n measurement (mass/volume)Ordered By: Dr. Velazquez on 06-02-2022 Urea nitrogen [Mass/Vol] 21 mg/dL 7-18 [facility] Thin prep Papanicolaou smear with manual screeningOrdered By: Dr. Velazquez on 06-02-2022 Thin prep Papanicolaou smear with manual screening 6 5-15 [facility] Absolute lymphocyte countOrd ered By: Dr. Lemus on 05-04-2022 Lymphocytes Auto (Unsp spec) [#/Vol] 2.30 10*3/uL 0.83-4.51 [facility] Basophil percentageOrdered B y: Dr. Lemus on 05-04-2022 Basophils/100 WBC (Bld) 0.6 % 0-1 [facility] Chloride [Moles/Vol] 112 mmol/L 98-107 [facility] Eosinophils/100 WBC (Bld) 5.2 % 0-5 [facility] Glucose [Mass/Vol] 87 mg/dL 74-106 [facility] Neutrophils (Bld) [#/Vol] 5.6 10*3/uL 2.0-7.7 [facility] Neutrophils/100 WBC (Bld) 58.8 % 47-70 [facility] Potassium [Moles/Vol] 4.2 mmol/L 3.5-5.1 [facility] Sodium [Moles/Vol] 142 mmol/L 136-145 [facility] WBC (Bld) [#/Vol] 9.6 10*3/uL 4.4-11.0 [facility] Blood erythrocytes count (nu mber/volume)Ordered By: Dr. Lemus on 05-04-2022 RBC (Bld) [#/Vol] 4.27 10*6/uL 4.6-6.2 [facility] Blood hemoglobin measurement (mass/volume)Ordered By: Dr. Lemus on 05-04-2022 Hemoglobin (Bld) [Mass/Vol] 13.0 g/dL 13.0-16.5 [facility] Blood lymphocytes/100 leukoc ytesOrdered By: Dr. Lemus on 05-04-2022 Lymphocytes/100 WBC (Bld) 24.0 % 19-41 [facility] Blood monocytes/100 leukocyt esOrdered By: Dr. Lemus on 05-04-2022 Monocytes/100 WBC (Bld) 11.1 % 0-10 [facility] Blood platelet mean volumeOr dered By: Dr. Lemus on 05-04-2022 Platelet mean volume (Bld) [Entitic vol] 10.8 fL 6.2-12.0 [facility] Determination of erythrocyte mean corpuscular volume (MCV)Ordered By: Dr. Lemus on 05-04-2022 MCV (RBC) [Entitic vol] 95.1 fL 80-94 [facility] Hematocrit Auto (Bld) [Volum e fraction]Ordered By: Dr. Lemus on 05-04-2022 Hematocrit (Bld) [Volume fraction] 40.6 % 40-54 [facility] Laboratory - Chemistry and C hemistry - challengeOrdered By: Dr. Lemus on 05-04-2022 CO2 [Moles/Vol] 25.0 mmol/L 21.0-32.0 [facility] Magnesium [Mass/Vol] 2.0 mg/dL 1.6-2.6 [facility] Urea nitrogen/Creatinine [Mass ratio] 16.8 mg/mg 10-20 [facility] Laboratory - Hematology and Cell countsOrdered By: Dr. Lemus on 05-04-2022 Erythrocyte distribution width (RBC) [Entitic vol] 51.2 fL 35.1-43.9 [facility] Erythrocyte distribution width (RBC) [Ratio] 14.6 % 11.6-14.6 [facility] Immature granulocytes/100 WBC (Bld) 0.300 % 0.0-0.9 [facility] Comment on above: IG% - Immature Granu locytes (promyelocytes, myelocytes and metamyelocytes) > 1% indicates that a LEFT SHIFT is Present. MCH (RBC) [Entitic mass] 30.4 pg 27.0-32.0 [facility] Nucleated RBC/100 WBC (Bld) [Ratio] 0 % 0-5 [facility] Auto (RBC) [Mass/Vol]Or dered By: Dr. Lemus on 05-04-2022 MCHC (RBC) [Mass/Vol] 32.0 g/dL 32-36 [facility] No Panel InformationOrdered By: Dr. Lemus on 05-04-2022 Estimated Creatinine Clearance Calc 57.80 ml/min [facility] Estimated GFR (MDRD) Amer 86 mL/min >60 [facility] Comment on above: GFR Calc Estimated GFR (MDRD) Non-Af Amer 71 mL/min >60 [facility] Comment on above: Non- GFR Calc Platelets bldOrdered By: Dr. Lemus on 05-04-2022 Platelets (Bld) [#/Vol] 188 10*3/uL 150-450 [facility] Serum or plasma calcium vanessa urement (mass/volume)Ordered By: Dr. Lemus on 05-04-2022 Calcium [Mass/Vol] 8.2 mg/dL 8.5-10.1 [facility] Serum or plasma creatinine m easurement (mass/volume)Ordered By: Dr. Lemus on 05-04-2022 Creatinine [Mass/Vol] 1.07 mg/dL 0.70-1.30 [facility] Comment on above: The validity of the calculated GFR & GFRAA in patients over 70 years has not been determined. Clinical correlation is essential. Serum or plasma urea nitroge n measurement (mass/volume)Ordered By: Dr. Lemus on 05-04-2022 Urea nitrogen [Mass/Vol] 18 mg/dL 7-18 [facility] Thin prep Papanicolaou smear with manual screeningOrdered By: Dr. Lemus on 05-04-2022 Thin prep Papanicolaou smear with manual screening 5 5-15 [facility] Basophil percentageOrdered B y: Dr. Aguilera on 05-03-2022 Bilirubin [Mass/Vol] 1.00 mg/dL 0.20-1.00 [facility] Comment on above: For patients on eltr ombopag therapy, use of Dimension [place] TBIL is not recommended. Chloride [Moles/Vol] 106 mmol/L 98-107 [facility] Glucose [Mass/Vol] 125 mg/dL 74-106 [facility] Comment on above: Fasting Glucose resu lt from 100 to 125 mg/dL suggests IMPAIRED HOMEOSTASIS per A.D.A. criteria. Potassium [Moles/Vol] 3.8 mmol/L 3.5-5.1 [facility] Protein [Mass/Vol] 7.5 g/dL 6.4-8.2 [facility] Sodium [Moles/Vol] 143 mmol/L 136-145 [facility] WBC (Bld) [#/Vol] 10.3 10*3/uL 4.4-11.0 [facility] Blood erythrocytes count (nu mber/volume)Ordered By: Dr. Aguilera on 05-03-2022 RBC (Bld) [#/Vol] 5.38 10*6/uL 4.6-6.2 [facility] Blood hemoglobin measurement (mass/volume)Ordered By: Dr. Aguilera on 05-03-2022 Hemoglobin (Bld) [Mass/Vol] 16.4 g/dL 13.0-16.5 [facility] Blood platelet mean volumeOr dered By: Dr. Aguilera on 05-03-2022 Platelet mean volume (Bld) [Entitic vol] 10.7 fL 6.2-12.0 [facility] Determination of erythrocyte mean corpuscular volume (MCV)Ordered By: Dr. Aguilera on 05-03-2022 MCV (RBC) [Entitic vol] 93.7 fL 80-94 [facility] Hematocrit Auto (Bld) [Volum e fraction]Ordered By: Dr. Aguilera on 05-03-2022 Hematocrit (Bld) [Volume fraction] 50.4 % 40-54 [facility] INR in Blood by Coagulation assayOrdered By: Dr. Aguilera on 05-03-2022 INR Coag (Bld) [Relative time] 1.1 {INR} [facility] Laboratory - Chemistry and C hemistry - challengeOrdered By: Dr. Aguilera on 05-03-2022 ALP [Catalytic activity/Vol] 50 U/L 45-117 [facility] ALT [Catalytic activity/Vol] 35 U/L 16-61 [facility] CO2 [Moles/Vol] 27.0 mmol/L 21.0-32.0 [facility] Globulin (S) [Mass/Vol] 3.8 g/dL 2.2-4.2 [facility] Lipase [Catalytic activity/Vol] 143 U/L 73-393 [facility] Urea nitrogen/Creatinine [Mass ratio] 15.7 mg/mg 10-20 [facility] Laboratory - CoagulationOrde red By: Dr. Aguilera on 05-03-2022 aPTT Coag (Bld) [Time] 25.9 s 24.1-36.2 [facility] PT Coag (PPP) [Time] 13.5 s 11.7-14.9 [facility] Laboratory - Hematology and Cell countsOrdered By: Dr. Aguilera on 05-03-2022 Erythrocyte distribution width (RBC) [Entitic vol] 50.5 fL 35.1-43.9 [facility] Erythrocyte distribution width (RBC) [Ratio] 14.6 % 11.6-14.6 [facility] MCH (RBC) [Entitic mass] 30.5 pg 27.0-32.0 [facility] MCHC Auto (RBC) [Mass/Vol]Or dered By: Dr. Aguilera on 05-03-2022 MCHC (RBC) [Mass/Vol] 32.5 g/dL 32-36 [facility] No Panel InformationOrdered By: Dr. Lemus on 05-03-2022 Troponin I High Sensitivity 14 pg/mL 3.0-78.0 [facility] Comment on above: Please Note: New Priya t Units and Gender Specific Reference Ranges. For more information see Policy Stat Procedure [place] High Sensitivity Troponin (TNIH) and attachments. Thyroid Stimulating Hormone (TSH) 1.95 uIU/mL 0.358-3.74 [facility] No Panel InformationOrdered By: Dr. Aguilera on 05-03-2022 Estimated Creatinine Clearance Calc 46.15 ml/min [facility] Estimated GFR (MDRD) Amer 66 mL/min >60 [facility] Comment on above: GFR Calc Estimated GFR (MDRD) Non-Af Amer 55 mL/min >60 [facility] Comment on above: Non- GFR Calc Troponin I High Sensitivity 13 pg/mL 3.0-78.0 [facility] Comment on above: Please Note: New Priya t Units and Gender Specific Reference Ranges. For more information see Policy Stat Procedure [place] High Sensitivity Troponin (TNIH) and attachments. Platelets bldOrdered By: Dr. Aguilera on 05-03-2022 Platelets (Bld) [#/Vol] 244 10*3/uL 150-450 [facility] Serum or plasma albumin vanessa urement (mass/volume)Ordered By: Dr. Aguilera on 05-03-2022 Albumin [Mass/Vol] 3.7 g/dL 3.2-5.0 [facility] Serum or plasma albumin/glob ulin mass ratioOrdered By: Dr. Aguilera on 05-03-2022 Albumin/Globulin [Mass ratio] 1.0 {ratio} 0.9-2.4 [facility] Serum or plasma calcium vanessa urement (mass/volume)Ordered By: Dr. Aguilera on 05-03-2022 Calcium [Mass/Vol] 9.6 mg/dL 8.5-10.1 [facility] Serum or plasma creatinine m easurement (mass/volume)Ordered By: Dr. Aguilera on 05-03-2022 Creatinine [Mass/Vol] 1.34 mg/dL 0.70-1.30 [facility] Comment on above: The validity of the calculated GFR & GFRAA in patients over 70 years has not been determined. Clinical correlation is essential. Serum or plasma urea nitroge n measurement (mass/volume)Ordered By: Dr. Aguilera on 05-03-2022 Urea nitrogen [Mass/Vol] 21 mg/dL 7-18 [facility] Thin prep Papanicolaou smear with manual screeningOrdered By: Dr. Aguilera on 05-03-2022 Thin prep Papanicolaou smear with manual screening 28 U/L 15-37 [facility] Thin prep Papanicolaou smear with manual screening 10 5-15 [facility] Absolute lymphocyte counton 12-18-2021 Lymphocytes Auto (Unsp spec) [#/Vol] 2.06 10*3/uL 0.83-4.51 [facility] Work Phone: Basophil percentageon 2021 Basophil percentage 0-5 SEEN /hpf 0-5 [facility] Work Phone: Basophils/100 WBC (Bld) 0.8 % 0-1 [facility] Work Phone: Bilirubin [Mass/Vol] 1.40 mg/dL 0.20-1.00 [facility] Work Phone: Comment on above: For patients on eltr ombopag therapy, use of Dimension [place] TBIL is not recommended. Chloride [Moles/Vol] 109 mmol/L 98-107 [facility] Work Phone: Cholesterol [Mass/Vol] 131 mg/dL <200 [facility] Work Phone: Comment on above: <200 mg/dL Desirable 200-240 mg/dL Borderline >240 mg/dL High Risk Eosinophils/100 WBC (Bld) 6.1 % 0-5 [facility] Work Phone: Glucose [Mass/Vol] 94 mg/dL 74-106 [facility] Work Phone: Neutrophils (Bld) [#/Vol] 4.0 10*3/uL 2.0-7.7 [facility] Work Phone: Neutrophils/100 WBC (Bld) 53.8 % 47-70 [facility] Work Phone: Potassium [Moles/Vol] 4.2 mmol/L 3.5-5.1 [facility] Work Phone: Protein [Mass/Vol] 7.2 g/dL 6.4-8.2 [facility] Work Phone: Sodium [Moles/Vol] 140 mmol/L 136-145 [facility] Work Phone: Triglyceride [Mass/Vol] 113 mg/dL <199 [facility] Work Phone: Comment on above: The drugs N-Acetylcy steine and Metamizole may falsely depress this assay.Serum Triglycerides Reference Interval Normal <150 mg/dL Borderline high 150 - 199 mg/dL High 200 - 499 mg/dL Very High > or = 500 mg/dL WBC (Bld) [#/Vol] 7.5 10*3/uL 4.4-11.0 [facility] Work Phone: Bilirubin Test strip Ql (U)o n 12-18-2021 Bilirubin Ql (U) Negative Negative [facility] Work Phone: Blood erythrocytes count (nu mber/volume)on 12-18-2021 RBC (Bld) [#/Vol] 4.83 10*6/uL 4.6-6.2 [facility]: Blood hemoglobin measurement (mass/volume)on 12-18-2021 Hemoglobin (Bld) [Mass/Vol] 14.8 g/dL 13.0-16.5 [facility] Work Phone: Blood lymphocytes/100 leukoc yteson 12-18-2021 Lymphocytes/100 WBC (Bld) 27.4 % 19-41 [facility] Work Phone: Blood monocytes/100 leukocyt eson 12-18-2021 Monocytes/100 WBC (Bld) 11.6 % 0-10 [facility] Work Phone: Blood platelet mean volumeon 12-18-2021 Platelet mean volume (Bld) [Entitic vol] 10.7 fL 6.2-12.0 [facility] Work Phone: Determination of erythrocyte mean corpuscular volume (MCV)on 12-18-2021 MCV (RBC) [Entitic vol] 93.6 fL 80-94 [facility] Work Phone: Hematocrit Auto (Bld) [Volum e fraction]on 12-18-2021 Hematocrit (Bld) [Volume fraction] 45.2 % 40-54 [facility] Work Phone: Ketones Test strip Ql (U)on 12-18-2021 Ketones Ql (U) Negative Negative [facility] Work Phone: Laboratory - Chemistry and C hemistry - challengeon 12-18-2021 ALP [Catalytic activity/Vol] 49 U/L 45-117 [facility] Work Phone: ALT [Catalytic activity/Vol] 27 U/L 16-61 [facility] Work Phone: CO2 [Moles/Vol] 26.0 mmol/L 21.0-32.0 [facility] Work Phone: Globulin (S) [Mass/Vol] 3.6 g/dL 2.2-4.2 [facility] Work Phone: Urea nitrogen/Creatinine [Mass ratio] 16.3 mg/mg 10-20 [facility] Work Phone: Laboratory - Hematology and Cell countson 12-18-2021 Erythrocyte distribution width (RBC) [Entitic vol] 49.4 fL 35.1-43.9 [facility] Work Phone: Erythrocyte distribution width (RBC) [Ratio] 14.3 % 11.6-14.6 [facility] Work Phone: Immature granulocytes/100 WBC (Bld) 0.300 % 0.0-0.9 [facility] Work Phone: Comment on above: IG% - Immature Granu locytes (promyelocytes, myelocytes and metamyelocytes) > 1% indicates that a LEFT SHIFT is Present. MCH (RBC) [Entitic mass] 30.6 pg 27.0-32.0 [facility] Work Phone: Nucleated RBC/100 WBC (Bld) [Ratio] 0 % 0-5 [facility] Work Phone: MCHC Auto (RBC) [Mass/Vol]on 12-18-2021 MCHC (RBC) [Mass/Vol] 32.7 g/dL 32-36 [facility] Work Phone: Mucus LM Ql (Urine sed)on Mucus Ql (Urine sed) 0 SEEN /hpf [facility] Work Phone: Nitrite Test strip Ql (U)on 12-18-2021 Nitrite Ql (U) Negative Negative [facility] Work Phone: No Panel Informationon 12-18 Estimated GFR (MDRD) Amer 73 mL/min >60 [facility] Work Phone: Comment on above: GFR Calc Estimated GFR (MDRD) Non-Af Amer 60 mL/min >60 [facility] Work Phone: Comment on above: Non- GFR Calc Thyroid Stimulating Hormone (TSH) 1.80 uIU/mL 0.358-3.74 [facility] Work Phone: Urine Microalbumin/Creatinine Ratio 19.6 mg/g CRE <30 [facility] Work Phone: Vitamin D 25-Hydroxy 37.1 ng/mL [facility] Work Phone: Comment on above: Vitamin D 25(OH) Sta tus Range Deficiency <20 ng/mL (50nmol/L) Insufficiency 20 - 30 ng/mL (50 - 75 nmol/L) Sufficiency 30 - 100 ng/mL (75 - 250 nmol/L) Toxicity >100 ng/mL (>250 nmol/L) Platelets bldon 12-18-2021 Platelets (Bld) [#/Vol] 196 10*3/uL 150-450 [facility] Work Phone: Protein Test strip Ql (U)on 12-18-2021 Protein Ql (U) 30 mg/dl Negative [facility] Work Phone: Serum or plasma albumin vanessa urement (mass/volume)on 12-18-2021 Albumin [Mass/Vol] 3.6 g/dL 3.2-5.0 [facility] Work Phone: Serum or plasma albumin/glob ulin mass ratioon 12-18-2021 Albumin/Globulin [Mass ratio] 1.0 {ratio} 0.9-2.4 [facility] Work Phone: Serum or plasma calcium vanessa urement (mass/volume)on 12-18-2021 Calcium [Mass/Vol] 8.9 mg/dL 8.5-10.1 [facility] Work Phone: Serum or plasma cholesterol in HDL measurement (mass/volume)on 12-18-2021 Cholesterol in HDL [Mass/Vol] 41 mg/dL >40 [facility] Work Phone: Comment on above: The drugs N-Acetylcy steine and Metamizole may falsely depress this assay. Reference Range HDL <40 mg/dL Low HDL Cholesterol HDL >or= 60 mg/dL High HDL Cholesterol Serum or plasma cholesterol in VLDL measurement (mass/volume)on 12-18-2021 Cholesterol in VLDL [Mass/Vol] 23 mg/dL 5-40 [facility] Work Phone: Serum or plasma creatinine m easurement (mass/volume)on 12-18-2021 Creatinine [Mass/Vol] 1.23 mg/dL 0.70-1.30 [facility] Work Phone: Comment on above: The validity of the calculated GFR & GFRAA in patients over 70 years has not been determined. Clinical correlation is essential. Serum or plasma low density lipoprotein (LDL) cholesterol measurement (mass/volume)on 12-18-2021 Cholesterol in LDL [Mass/Vol] 67 mg/dL 0-130 [facility] Work Phone: Serum or plasma urea nitroge n measurement (mass/volume)on 12-18-2021 Urea nitrogen [Mass/Vol] 20 mg/dL 7-18 [facility] Work Phone: Squamous epithelial cells de tection in urine sediment by light microscopyon 12-18-2021 Epithelial cells.squamous LM Ql (Urine sed) 0 SEEN /hpf 0-5 [facility] Work Phone: Thin prep Papanicolaou smear with manual screeningon 12-18-2021 Thin prep Papanicolaou smear with manual screening 25 U/L 15-37 [facility] Work Phone: Thin prep Papanicolaou smear with manual screening 5 5-15 [facility] Work Phone: Thin prep Papanicolaou smear with manual screening 56.2 mg/L NO RANGE EST. [facility] Work Phone: Urine blood detectionon - RBC Ql (U) 25 /ul Negative [facility] Work Phone: RBC Ql (U) 0-5 SEEN /hpf 0-5 [facility] Work Phone: Urine clarityon 12-18-2021 Clarity (U) Sl. Cloudy Clear [facility] Work Phone: Urine color determinationon 12-18-2021 Color (U) Yellow Yellow [facility] Work Phone: Urine creatinine measurement (mass/volume)on 12-18-2021 Creatinine (U) [Mass/Vol] 287.00 mg/dL NO RANGE EST. [facility] Work Phone: Urine glucose detectionon Glucose Ql (U) Normal mg/dl Normal [facility] Work Phone: Urine leukocyte esterase det ection by dipstickon 12-18-2021 Leukocyte esterase Test strip Ql (U) 25 /ul Negative [facility] Work Phone: Urine pHon 12-18-2021 pH (U) 6.0 [pH] 5.0 - 8.0 [facility] Work Phone: Urine sediment bacteria coun t by microscopy (number/high power field)on 12-18-2021 Bacteria LM.HPF (Urine sed) [#/Area] 0 /[HPF] None Seen [facility] Work Phone: Urine specific gravity measu rementon 12-18-2021 Specific gravity (U) [Rel density] 1.020 1.002-1.03 0 [facility] Work Phone: Urobilinogen Auto test strip Ql (U)on 12-18-2021 Urobilinogen Ql (U) Normal mg/dl Normal [facility] Work Phone: No Panel Informationon 08-13 Prostate Specific Antigen Total < 0.01 ng/mL 0.0-4.0 [facility] Work Phone: Comment on above: This test was perfor med using the TPSA assay method for the[employer] chemistry system. Values obtained with differentassay methods cannot be used interchangably.When changing PSA assays in the course of monitoring apatient, additional sequential testing should be carriedout to confirm baseline values. CREATININE, BLOOD (POC)on Creatinine [Mass/Vol] 1.10 mg/dL 0.7 - 1.4 mg/dL [facility] GFR/1.73 sq M.predicted among non-blacks MDRD (S/P/Bld) [Vol rate/Area] mL/min/{1.73_m2} [facility] CT CARDIAC W IVCONon 022 [facility] ECHO TRANSESOPHAGEALon 08-08 [facility] XR CHEST 2V FRONTAL/LATon [facility] Absolute lymphocyte counton 06-07-2021 Lymphocytes Auto (Unsp spec) [#/Vol] 1.75 10*3/uL 0.83-4.51 [facility] Work Phone: Basophil percentageon 2021 Basophils/100 WBC (Bld) 0.5 % 0-1 [facility] Work Phone: Bilirubin [Mass/Vol] 1.40 mg/dL 0.20-1.00 [facility] Work Phone: Comment on above: For patients on eltr ombopag therapy, use of Dimension [place] TBIL is not recommended. Chloride [Moles/Vol] 106 mmol/L 98-107 [facility] Work Phone: Cholesterol [Mass/Vol] 137 mg/dL <200 [facility] Work Phone: Comment on above: <200 mg/dL Desirable 200-240 mg/dL Borderline >240 mg/dL High Risk Eosinophils/100 WBC (Bld) 3.4 % 0-5 [facility] Work Phone: Glucose [Mass/Vol] 113 mg/dL 74-106 [facility] Work Phone: Comment on above: Fasting Glucose resu lt from 100 to 125 mg/dL suggests IMPAIRED HOMEOSTASIS per A.D.A. criteria. Neutrophils (Bld) [#/Vol] 5.5 10*3/uL 2.0-7.7 [facility] Work Phone: Neutrophils/100 WBC (Bld) 64.5 % 47-70 [facility] Work Phone: Potassium [Moles/Vol] 4.0 mmol/L 3.5-5.1 [facility] Work Phone: Protein [Mass/Vol] 7.5 g/dL 6.4-8.2 [facility] Work Phone: Sodium [Moles/Vol] 138 mmol/L 136-145 [facility] Work Phone: Triglyceride [Mass/Vol] 110 mg/dL <199 [facility] Work Phone: Comment on above: The drugs N-Acetylcy steine and Metamizole may falsely depress this assay.Serum Triglycerides Reference Interval Normal <150 mg/dL Borderline high 150 - 199 mg/dL High 200 - 499 mg/dL Very High > or = 500 mg/dL WBC (Bld) [#/Vol] 8.5 10*3/uL 4.4-11.0 [facility] Work Phone: Blood Glucose , Office [phone] By: Tara Hayes on 06-07-2021 Glucose Glucometer (BldC) [Moles/Vol] 106 1 Normal [facility] Work Phone: Blood erythrocytes count (nu mber/volume)on 06-07-2021 RBC (Bld) [#/Vol] 5.03 10*6/uL 4.6-6.2 [facility] Work Phone: Blood hemoglobin measurement (mass/volume)on 06-07-2021 Hemoglobin (Bld) [Mass/Vol] 14.9 g/dL 13.0-16.5 [facility] Work Phone: Blood lymphocytes/100 leukoc yteson 06-07-2021 Lymphocytes/100 WBC (Bld) 20.6 % 19-41 [facility] Work Phone: Blood monocytes/100 leukocyt eson 06-07-2021 Monocytes/100 WBC (Bld) 10.4 % 0-10 [facility] Work Phone: Blood platelet mean volumeon 06-07-2021 Platelet mean volume (Bld) [Entitic vol] 10.7 fL 6.2-12.0 [facility] Work Phone: Determination of erythrocyte mean corpuscular volume (MCV)on 06-07-2021 MCV (RBC) [Entitic vol] 91.3 fL 80-94 [facility] Work Phone: Hematocrit Auto (Bld) [Volum e fraction]on 06-07-2021 Hematocrit (Bld) [Volume fraction] 45.9 % 40-54 [facility] Work Phone: HgA1C , Office [phone])Ordere d By: Tara Hayes on 06-07-2021 HbA1c (Bld) [Mass fraction] 5.9 % Normal 4.6 - 7.1 [facility] Work Phone: Laboratory - Chemistry and C hemistry - challengeon 06-07-2021 ALP [Catalytic activity/Vol] 45 U/L 45-117 [facility] Work Phone: ALT [Catalytic activity/Vol] 29 U/L 16-61 [facility] Work Phone: CO2 [Moles/Vol] 27.0 mmol/L 21.0-32.0 [facility] Work Phone: Globulin (S) [Mass/Vol] 3.6 g/dL 2.2-4.2 [facility] Work Phone: Urea nitrogen/Creatinine [Mass ratio] 14.7 mg/mg 10-20 [facility] Work Phone: Laboratory - Hematology and Cell countson 06-07-2021 Erythrocyte distribution width (RBC) [Entitic vol] 51.2 fL 35.1-43.9 [facility] Work Phone: Erythrocyte distribution width (RBC) [Ratio] 15.2 % 11.6-14.6 [facility] Work Phone: Immature granulocytes/100 WBC (Bld) 0.600 % 0.0-0.9 [facility] Work Phone: Comment on above: IG% - Immature Granu locytes (promyelocytes, myelocytes and metamyelocytes) > 1% indicates that a LEFT SHIFT is Present. MCH (RBC) [Entitic mass] 29.6 pg 27.0-32.0 [facility] Work Phone: Nucleated RBC/100 WBC (Bld) [Ratio] 0 % 0-5 [facility] Work Phone: MCHC Auto (RBC) [Mass/Vol]on 06-07-2021 MCHC (RBC) [Mass/Vol] 32.5 g/dL 32-36 [facility] Work Phone: No Panel Informationon 06-07 Estimated GFR (MDRD) Amer 62 mL/min >60 [facility] Work Phone: Comment on above: GFR Calc Estimated GFR (MDRD) Non-Af Amer 51 mL/min >60 [facility] Work Phone: Comment on above: Non- GFR Calc Thyroid Stimulating Hormone (TSH) 1.42 uIU/mL 0.358-3.74 [facility] Work Phone: Vitamin D 25-Hydroxy 34.6 ng/mL [facility] Work Phone: Comment on above: Vitamin D 25(OH) Sta tus Range Deficiency <20 ng/mL (50nmol/L) Insufficiency 20 - 30 ng/mL (50 - 75 nmol/L) Sufficiency 30 - 100 ng/mL (75 - 250 nmol/L) Toxicity >100 ng/mL (>250 nmol/L) Platelets bldon 06-07-2021 Platelets (Bld) [#/Vol] 226 10*3/uL 150-450 [facility] Work Phone: Serum or plasma albumin vanessa urement (mass/volume)on 06-07-2021 Albumin [Mass/Vol] 3.9 g/dL 3.2-5.0 [facility] Work Phone: Serum or plasma albumin/glob ulin mass ratioon 06-07-2021 Albumin/Globulin [Mass ratio] 1.1 {ratio} 0.9-2.4 [facility] Work Phone: Serum or plasma calcium vanessa urement (mass/volume)on 06-07-2021 Calcium [Mass/Vol] 9.0 mg/dL 8.5-10.1 [facility] Work Phone: Serum or plasma cholesterol in HDL measurement (mass/volume)on 06-07-2021 Cholesterol in HDL [Mass/Vol] 41 mg/dL >40 [facility] Work Phone: Comment on above: The drugs N-Acetylcy steine and Metamizole may falsely depress this assay. Reference Range HDL <40 mg/dL Low HDL Cholesterol HDL >or= 60 mg/dL High HDL Cholesterol Serum or plasma cholesterol in VLDL measurement (mass/volume)on 06-07-2021 Cholesterol in VLDL [Mass/Vol] 22 mg/dL 5-40 [facility] Work Phone: Serum or plasma creatinine m easurement (mass/volume)on 06-07-2021 Creatinine [Mass/Vol] 1.43 mg/dL 0.70-1.30 [facility] Work Phone: Comment on above: The validity of the calculated GFR & GFRAA in patients over 70 years has not been determined. Clinical correlation is essential. Serum or plasma low density lipoprotein (LDL) cholesterol measurement (mass/volume)on 06-07-2021 Cholesterol in LDL [Mass/Vol] 74 mg/dL 0-130 [facility] Work Phone: Serum or plasma urea nitroge n measurement (mass/volume)on 06-07-2021 Urea nitrogen [Mass/Vol] 21 mg/dL 7-18 [facility] Work Phone: Thin prep Papanicolaou smear with manual screeningon 06-07-2021 Thin prep Papanicolaou smear with manual screening 24 U/L 15-37 [facility] Work Phone: Thin prep Papanicolaou smear with manual screening 5 5-15 [facility] Work Phone: Absolute lymphocyte counton 04-10-2021 Lymphocytes Auto (Unsp spec) [#/Vol] 2.09 10*3/uL 0.83-4.51 [facility] Work Phone: Basophil percentageon 2021 Basophils/100 WBC (Bld) 0.6 % 0-1 [facility] Work Phone: Chloride [Moles/Vol] 105 mmol/L 98-107 [facility] Work Phone: Eosinophils/100 WBC (Bld) 4.3 % 0-5 [facility] Work Phone: Glucose [Mass/Vol] 101 mg/dL 74-106 [facility] Work Phone: Comment on above: Fasting Glucose resu lt from 100 to 125 mg/dL suggests IMPAIRED HOMEOSTASIS per A.D.A. criteria. Neutrophils (Bld) [#/Vol] 5.2 10*3/uL 2.0-7.7 [facility] Work Phone: Neutrophils/100 WBC (Bld) 59.8 % 47-70 [facility] Work Phone: Potassium [Moles/Vol] 4.0 mmol/L 3.5-5.1 [facility] Work Phone: Sodium [Moles/Vol] 139 mmol/L 136-145 [facility] Work Phone: WBC (Bld) [#/Vol] 8.8 10*3/uL 4.4-11.0 [facility] Work Phone: Blood erythrocytes count (nu mber/volume)on 04-10-2021 RBC (Bld) [#/Vol] 4.82 10*6/uL 4.6-6.2 [facility] Work Phone: Blood hemoglobin measurement (mass/volume)on 04-10-2021 Hemoglobin (Bld) [Mass/Vol] 14.7 g/dL 13.0-16.5 [facility] Work Phone: Blood lymphocytes/100 leukoc yteson 04-10-2021 Lymphocytes/100 WBC (Bld) 23.9 % 19-41 [facility] Work Phone: Blood monocytes/100 leukocyt eson 04-10-2021 Monocytes/100 WBC (Bld) 11.2 % 0-10 [facility] Work Phone: Blood platelet mean volumeon 04-10-2021 Platelet mean volume (Bld) [Entitic vol] 10.9 fL 6.2-12.0 [facility] Work Phone: Determination of erythrocyte mean corpuscular volume (MCV)on 04-10-2021 MCV (RBC) [Entitic vol] 91.7 fL 80-94 [facility] Work Phone: Hematocrit Auto (Bld) [Volum e fraction]on 04-10-2021 Hematocrit (Bld) [Volume fraction] 44.2 % 40-54 [facility] Work Phone: Laboratory - Chemistry and C hemistry - challengeon 04-10-2021 CO2 [Moles/Vol] 28.0 mmol/L 21.0-32.0 [facility] Work Phone: Urea nitrogen/Creatinine [Mass ratio] 12.7 mg/mg 10-20 [facility] Work Phone: Laboratory - Hematology and Cell countson 04-10-2021 Erythrocyte distribution width (RBC) [Entitic vol] 48.4 fL 35.1-43.9 [facility] Work Phone: Erythrocyte distribution width (RBC) [Ratio] 14.4 % 11.6-14.6 [facility] Work Phone: Immature granulocytes/100 WBC (Bld) 0.200 % 0.0-0.9 [facility] Work Phone: Comment on above: IG% - Immature Granu locytes (promyelocytes, myelocytes and metamyelocytes) > 1% indicates that a LEFT SHIFT is Present. MCH (RBC) [Entitic mass] 30.5 pg 27.0-32.0 [facility] Work Phone: Nucleated RBC/100 WBC (Bld) [Ratio] 0 % 0-5 [facility] Work Phone: MCHC Auto (RBC) [Mass/Vol]on 04-10-2021 MCHC (RBC) [Mass/Vol] 33.3 g/dL 32-36 [facility] Work Phone: No Panel Informationon 04-10 Estimated GFR (MDRD) Amer 66 mL/min >60 [facility] Work Phone: Comment on above: GFR Calc Estimated GFR (MDRD) Non-Af Amer 55 mL/min >60 [facility] Work Phone: Comment on above: Non- GFR Calc Platelets bldon 04-10-2021 Platelets (Bld) [#/Vol] 246 10*3/uL 150-450 [facility] Work Phone: Serum or plasma calcium vanessa urement (mass/volume)on 04-10-2021 Calcium [Mass/Vol] 9.1 mg/dL 8.5-10.1 [facility] Work Phone: Serum or plasma creatinine m easurement (mass/volume)on 04-10-2021 Creatinine [Mass/Vol] 1.34 mg/dL 0.70-1.30 [facility] Work Phone: Comment on above: The validity of the calculated GFR & GFRAA in patients over 70 years has not been determined. Clinical correlation is essential. Serum or plasma urea nitroge n measurement (mass/volume)on 04-10-2021 Urea nitrogen [Mass/Vol] 17 mg/dL 7-18 [facility] Work Phone: Thin prep Papanicolaou smear with manual screeningon 04-10-2021 Thin prep Papanicolaou smear with manual screening 6 5-15 [facility] Work Phone: No Panel Informationon 03-28 SARS-CoV-2 Antigen (Rapid) [facility] Work Phone: Laboratory - Chemistry and C hemistry - challengeon 03-15-2021 Natriuretic peptide B (Bld) [Mass/Vol] 67.5 pg/mL 0-100 [facility] Work Phone: PSA,Total- DiagnosticOrdered By: Hand Fabric Cutter on 01-13-2018 PSA,Total- Diagnostic < 0.01 Normal 0.0-4.0 [facility] prehensive Internal Medicine Work Phone: Comment on above: This test was perfor med using the TPSA assay method for the[facility] chemistry system. Values obtained with differentassay methods cannot be used interchangably.When changing PSA assays in the course of monitoring apatient, additional sequential testing should be carriedout to confirm baseline values. [facility] [address] [place], [place], [id number] Rapid Strep Test, Office ([phone])Ordered By: Emy Stoll on 01-05-2018 S. pyogenes Ag EIA Ql (Throat) Negative Normal [facility]; [facility] Work Phone: S. pyogenes Ag IA Ql (Unsp spec) Negative Normal [facility] Work Phone: THROAT CULTURE ([phone])Ordere d By: Hand Fabric Cutter on 01-05-2018 Bacteria identified Respiratory culture Nom (Unsp spec) RRF Normal [facility] Work Phone: Comment on above: Routine respiratory mary PATIENT NOT FASTINGP ERFORMED BY: DONA LabCoBungee LabsMkdunm7931 [facility] [id number] Information: SRC:TH Bacteria identified Respiratory culture Nom (Unsp spec) Final report Normal [facility] Work Phone: Comment on above: PATIENT NOT FASTINGP ERFORMED BY: DiscoveRX LabCoBungee LabsOujvyz6151 [facility] [id number] Information: SRC:TH Bilirubin, DirectOrdered By: Hand Fabric Cutter on 11-21-2017 Bilirubin.conjugated mass conc 0.21 mg/dL Normal 0.00-0.30 [facility] Work Phone: Comment on above: ORDERED: L IPID, TSH, LIPOPROTEIN, CBCD, CMPJOHN ROOF ORDERED: LIPID, [facility] [address] [place], [address] CBC W/Diff, AutomatedOrdered By: Hand Fabric Cutter on 11-21-2017 Absolute Neut 4.6 {X10_3/uL} Normal 2.0-7.7 Compreh ens[facility] Medicine Work Phone: Comment on above: ORDERED: L IPID, TSH, LIPOPROTEIN, CBCD, CMPJOHN ROOF ORDERED: LIPID, [facility] [address] [place], [address] Basophils/100 WBC (Bld) 0.4 % Normal 0-1 C omprehensive Internal Medicine Work Phone: Comment on above: ORDERED: L IPID, TSH, LIPOPROTEIN, CBCD, CMPJOHN ROOF ORDERED: LIPID, [facility] [address] [place], [phone] Eosinophils/100 WBC (Bld) 4.9 % Normal 0-5 [facility] Work Phone: Comment on above: ORDERED: L IPID, TSH, LIPOPROTEIN, CBCD, CMPJOHN ROOF ORDERED: LIPID, [facility] [address] [place], [address] Erythrocyte distribution width Ratio (RBC) 13.9 % Normal 11.6-14.6 [facility] Work Phone: Comment on above: ORDERED: L IPID, TSH, LIPOPROTEIN, CBCD, CMPJOHN ROOF ORDERED: LIPID, [facility] [address] [place], [address] Hematocrit Volume Fraction (Bld) 46.3 % Normal 40-54 [facility] Work Phone: Comment on above: ORDERED: L IPID, TSH, LIPOPROTEIN, CBCD, CMPJOHN ROOF ORDERED: LIPID, [facility] [address] [place], [address] Hemoglobin mass conc (Bld) 15.4 g/dL Normal 13.0-16.5 [facility] Work Phone: Comment on above: ORDERED: L IPID, TSH, LIPOPROTEIN, CBCD, CMPJOHN ROOF ORDERED: LIPID, [facility] [address] [place], [address] IM GRAN % 0.100 % Normal 0.0-0.9 [facility] Work Phone: Comment on above: IG% - Immature Granu locytes (promyelocytes, myelocytes andmetamyelocytes) > 1% indicates that a LEFT SHIFT is Present. ORDERED: L IPID, TSH, LIPOPROTEIN, CBCD, CMPJOHN ROOF ORDERED: LIPID, [facility] [address] [place], [address] Lymphocytes #/vol (Bld) 2.34 {X10_3/ul} Normal 0.83-4. 51 [facility] Work Phone: Comment on above: ORDERED: L IPID, TSH, LIPOPROTEIN, CBCD, CMPJOHN ROOF ORDERED: LIPID, [facility] [address] [place], [address] Lymphocytes/100 WBC (Bld) 29.1 % Normal 19-41 [facility] Work Phone: Comment on above: ORDERED: L IPID, TSH, LIPOPROTEIN, CBCD, CMPJOHN ROOF ORDERED: LIPID, [facility] [address] [place], [address] MCH Entitic mass (RBC) 31.4 pg Normal 27.0-32.0 [facility] Internal Medicine Work Phone: Comment on above: ORDERED: L IPID, TSH, LIPOPROTEIN, CBCD, CMPJOHN ROOF ORDERED: LIPID, [facility] [address] [place], [address] MCHC mass conc (RBC) 33.3 {g/gl} Normal 32-36 Com prehensive Internal Medicine Work Phone: Comment on above: ORDERED: L IPID, TSH, LIPOPROTEIN, CBCD, CMPJOHN ROOF ORDERED: LIPID, [facility] [address] [place], [address] MCV Entitic volume (RBC) 94.5 fL Abnormal 80-94 [facility] Work Phone: Comment on above: ORDERED: L IPID, TSH, LIPOPROTEIN, CBCD, CMPJOHN ROOF ORDERED: LIPID, [facility] [address] [place], [phone]) Monocytes/100 WBC (Bld) 8.2 % Normal 0-[address] [facility] Internal Medicine Work Phone: Comment on above: ORDERED: L IPID, TSH, LIPOPROTEIN, CBCD, CMPJOHN ROOF ORDERED: LIPID, [facility] [address] [place], [address] Neutrophils/100 WBC (Bld) 57.3 % Normal 47-70 [facility] Internal Medicine Work Phone: Comment on above: ORDERED: L IPID, TSH, LIPOPROTEIN, CBCD, CMPJOHN ROOF ORDERED: LIPID, [facility] [address] [place], [phone] Platelet mean volume Entitic volume (Bld) 10.5 fL Normal 6.2-12.0 [facility] Work Phone: Comment on above: ORDERED: L IPID, TSH, LIPOPROTEIN, CBCD, CMPJOHN ROOF ORDERED: LIPID, [facility] [address] [place], [address] Platelets #/vol (Bld) 206 10*3/uL Normal 150-450 Co mprehensive [facility] Work Phone: Comment on above: ORDERED: L IPID, TSH, LIPOPROTEIN, CBCD, CMPJOHN ROOF ORDERED: LIPID, [facility] [address] [place], [address] RBC #/vol (Bld) 4.90 {M/mm3} Normal 4.6-6.2 Compreh ensive Internal Medicine Work Phone: Comment on above: ORDERED: L IPID, TSH, LIPOPROTEIN, CBCD, CMPJOHN ROOF ORDERED: LIPID, [facility] [address] [place], [address] RDW SD 47.9 fL Abnormal 35.1-43.9 [facility] Work Phone: Comment on above: ORDERED: L IPID, TSH, LIPOPROTEIN, CBCD, CMPJOHN ROOF ORDERED: LIPID, [facility] [address] [place], [address] WBC #/vol (Bld) 8.0 10*3/uL Normal 4.4-11.0 Comprehe [facility] Internal Medicine Work Phone: Comment on above: ORDERED: L IPID, TSH, LIPOPROTEIN, CBCD, CMPJOHN ROOF ORDERED: LIPID, [facility] [address] [place], [address] Comprehensive Metabolic Prof ilOrdered By: Hand Fabric Cutter on 11-21-2017 Comprehensive metabolic 2000 panel 21 mg/dL Abnormal 7-18 [facility] Work Phone: Comment on above: ORDERED: L IPID, TSH, LIPOPROTEIN, CBCD, CMPJOHN ROOF ORDERED: LIPID, [facility] [address] [place], [address] Comprehensive metabolic 2000 panel 1.0 {RATIO} Normal 0.9-2.4 [facility] Work Phone: Comment on above: ORDERED: L IPID, TSH, LIPOPROTEIN, CBCD, CMPJOHN ROOF ORDERED: LIPID, [facility] [address] [place], [place], [id number] Comprehensive [facility] 2000 panel 7.1 g/dL Normal 6.4-8.2 [facility] Work Phone: Comment on above: ORDERED: L IPID, TSH, LIPOPROTEIN, CBCD, CMPJOHN ROOF ORDERED: LIPID, [facility] [address] [place], [address] Comprehensive metabolic 2000 panel 29 U/L Normal 16-61 [facility] Work Phone: Comment on above: ORDERED: L IPID, TSH, LIPOPROTEIN, CBCD, CMPJOHN ROOF ORDERED: LIPID, [facility] [address] [place], [address] Comprehensive metabolic 2000 panel 0.90 mg/dL Normal 0.20-1.00 [facility] Work Phone: Comment on above: ORDERED: L IPID, TSH, LIPOPROTEIN, CBCD, CMPJOHN ROOF ORDERED: LIPID, [facility] [address] [place], [address] Comprehensive metabolic 2000 panel 140 mmol/L Normal 136-145 [facility] Work Phone: Comment on above: ORDERED: L IPID, TSH, LIPOPROTEIN, CBCD, CMPJOHN ROOF ORDERED: LIPID, [facility] [address] [place], [address] Comprehensive metabolic 2000 panel 3.5 g/dL Normal 2.2-4.2 [facility] Work Phone: Comment on above: ORDERED: L IPID, TSH, LIPOPROTEIN, CBCD, CMPJOHN ROOF ORDERED: LIPID, [facility] [address] [place], [address] Comprehensive metabolic 2000 panel 101 mg/dL Normal 74-106 [facility] Work Phone: Comment on above: Fasting Glucose resu lt from 100 to 125 mg/dLsuggests IMPAIRED HOMEOSTASIS per A.D.A. criteria.Please note revised GLUCOSE reference range ovtdhmthm15/02/2018. ORDERED: L IPID, TSH, LIPOPROTEIN, CBCD, CMPJOHN ROOF ORDERED: LIPID, [facility] [address] [place], [place], [id number] Comprehensive metabolic 2000 panel 67 mL/min Normal [facility] Work Phone: Comment on above: Non- GFR Calc ORDERED: L IPID, TSH, LIPOPROTEIN, CBCD, CMPJOHN ROOF ORDERED: LIPID, [facility] [address] [place], [address] Comprehensive metabolic 2000 panel 4.1 mmol/L Normal 3.5-5.1 [facility] Work Phone: Comment on above: ORDERED: L IPID, TSH, LIPOPROTEIN, CBCD, CMPJOHN ROOF ORDERED: LIPID, [facility] [address] [place], [address] Comprehensive metabolic 2000 panel 8.8 mg/dL Normal 8.5-10.1 [facility] Work Phone: Comment on above: ORDERED: L IPID, TSH, LIPOPROTEIN, CBCD, CMPJOHN ROOF ORDERED: LIPID, [facility] [address] [place], [address] Comprehensive metabolic 2000 panel 108 mmol/L Abnormal 98-107 [facility] Work Phone: Comment on above: ORDERED: L IPID, TSH, LIPOPROTEIN, CBCD, CMPJOHN ROOF ORDERED: LIPID, [facility] [address] [place], [address] Comprehensive metabolic 2000 panel 1.13 mg/dL Normal 0.70-1.30 [facility] Work Phone: Comment on above: The validity of the calculated GFR AND GFRAA in patients over70 years has not been determined. Clinical correlation isessential. ORDERED: L IPID, TSH, LIPOPROTEIN, CBCD, CMPJOHN ROOF ORDERED: LIPID, [facility] [address] [place], [address] Comprehensive metabolic 2000 panel 81 mL/min Normal [facility] Work Phone: Comment on above: GFR Calc ORDERED: L IPID, TSH, LIPOPROTEIN, CBCD, CMPJOHN ROOF ORDERED: LIPID, [facility] [address] [place], [address] Comprehensive metabolic 2000 panel 22 U/L Normal 15-37 [facility] Work Phone: Comment on above: ORDERED: L IPID, TSH, LIPOPROTEIN, CBCD, CMPJOHN ROOF ORDERED: LIPID, [facility] [address] [place], [address] Comprehensive metabolic 2000 panel 28.0 mmol/L Normal 21.0-32.0 [facility] Work Phone: Comment on above: ORDERED: L IPID, TSH, LIPOPROTEIN, CBCD, CMPJOHN ROOF ORDERED: LIPID, [facility] [address] [place], [address] Comprehensive metabolic 2000 panel 4 1 Abnormal 5-15 [facility] Work Phone: Comment on above: ORDERED: L IPID, TSH, LIPOPROTEIN, CBCD, CMPJOHN ROOF ORDERED: LIPID, [facility] [address] [place], [address] Comprehensive metabolic 2000 panel 3.6 g/dL Normal 3.2-5.0 [facility] Work Phone: Comment on above: ORDERED: L IPID, TSH, LIPOPROTEIN, CBCD, CMPJOHN ROOF ORDERED: LIPID, [facility] [address] [place], [address] Comprehensive metabolic 2000 panel 39 U/L Abnormal 45-117 [facility] Work Phone: Comment on above: ORDERED: L IPID, TSH, LIPOPROTEIN, CBCD, CMPJOHN ROOF ORDERED: LIPID, [facility] [address] [place], [address] Comprehensive metabolic 2000 panel 18.6 {RATIO} Normal 10-20 [facility] Work Phone: Comment on above: ORDERED: L IPID, TSH, LIPOPROTEIN, CBCD, CMPJOHN ROOF ORDERED: LIPID, [facility] [address] [place], [address] Lipid ProfileOrdered By: Florence tem Business Strategist on 11-21-2017 Cholesterol in HDL mass conc 36 mg/dL Abnormal [facility] Work Phone: Comment on above: The drugs N-Acetylcy steine and Metamizole may falselydepress this assay. Reference Range HDL <40 mg/dL Low HDL Cholesterol HDL >or= 60 mg/dL High HDL Cholesterol ORDERED: L IPID, TSH, LIPOPROTEIN, CBCD, CMPJOHN ROOF ORDERED: LIPID, [facility] [address] [place], [address] Cholesterol in LDL mass conc 61 mg/dL Normal 0-130 [facility] Work Phone: Comment on above: ORDERED: L IPID, TSH, LIPOPROTEIN, CBCD, CMPJOHN ROOF ORDERED: LIPID, [facility] [address] [place], [address] Cholesterol in VLDL mass conc 20 mg/dL Normal 5-40 [facility] Work Phone: Comment on above: ORDERED: L IPID, TSH, LIPOPROTEIN, CBCD, CMPJOHN ROOF ORDERED: LIPID, [facility] [address] [place], [place], [id number] Cholesterol mass conc 117 mg/dL Normal Com prehensive Internal Medicine Work Phone: Comment on above: <200 mg/dL Desirable 200-240 mg/dL Borderline >240 mg/dL High Risk ORDERED: L IPID, TSH, LIPOPROTEIN, CBCD, CMPJOHN ROOF ORDERED: LIPID, [facility] [address] [place], [place], [id number] Triglyceride mass conc 99 mg/dL Normal [facility] Work Phone: Comment on above: The drugs N-Acetylcy steine and Metamizole may falselydepress this assay.Serum Triglycerides Reference Interval Normal <150 mg/dL Borderline high 150 - 199 mg/dL High 200 - 499 mg/dL Very High > or = 500 mg/dL ORDERED: L IPID, TSH, LIPOPROTEIN, CBCD, CMPJOHN ROOF ORDERED: LIPID, [facility] [address] [place], [place], [id number] NMR LipoprofileOrdered By: Samir nairtem Business Strategist on 11-21-2017 Cholesterol mass conc 126 mg/dL Normal 100-199 [facility] prehensive Internal Medicine Work Phone: Comment on above: ORDERED: L IPID, TSH, LIPOPROTEIN, CBCD, CMPJOHN ROOF ORDERED: LIPID, [facility] (refer to report for specific site)refer to report for address and phone number Triglyceride mass conc 102 mg/dL Normal 0-149 [facility] Work Phone: Comment on above: ORDERED: L IPID, TSH, LIPOPROTEIN, CBCD, CMPJOHN ROOF ORDERED: LIPID, [facility] (refer to report for specific site)refer to report for address and phone number NMR Lip[employer] 64 1 Abnormal Comprehen sive Internal Medicine Work Phone: Comment on above: INSULIN RESISTANCE Kristopher SEPULVEDA <--Insulin Sensitive Insulin Resistant--> Percentile in Reference PopulationInsulin Resistance ScoreLP-IR Score Low 25th 50th 75th High <27 27 45 63 >63LP-IR Score is inaccurate if patient is non-fasting.The LP-IR score is a laboratory developed index that hasbeen associated with insulin resistance and diabetes riskand should be used as one component of a physician'sclinical assessment. The LP-IR score listed above has notbeen cleared by the [place] Food and Drug Administration.Performed at: [facility] [id number] Director: Bharat Brower MD, Phone: [phone] ORDERED: L IPID, TSH, LIPOPROTEIN, CBCD, CMPJOHN [facility] ORDERED: LIPID, [facility] (refer to report for specific site)refer to report for address and phone number NMR Lip[employer] 20.4 nm Normal [facility] Internal [facility] Work Phone: Comment on above: INTERPRETATIVE INFORMATION PARTICLE CONCENTRATION AND SIZE <--Lower CVD Risk Higher CVD Risk--> LDL AND HDL PARTICLES Percentile in Reference Population HDL-P (total) High 75th 50th 25th Low >34.9 34.9 30.5 26.7 <26.7 Small LDL-P Low 25th 50th 75th High <117 117 527 839 >839 LDL Size <-Large (Pattern A)-> <-Small (Pattern B)-> 23.0 20.6 20.5 19.0 Smal l LDL-P and LDL Size are associated with CVD risk, butnot after LDL-P is taken into account.These assays were developed and their performancecharacteristics determined by [employer]. These assayshave not been cleared by the [place] Food and DrugAdministration. The clinical utility of these laboratoryvalues have not been fully established. ORDERED: L IPID, TSH, LIPOPROTEIN, CBCD, CMPJOHN ROOF ORDERED: LIPID, [facility] (refer to report for specific site)refer to report for address and phone number NMR Lip[employer] . Normal [facility] Internal [facility] Work Phone: Comment on above: ORDERED: L IPID, TSH, LIPOPROTEIN, CBCD, CMPJOHN ROOF ORDERED: LIPID, [facility] (refer to report for specific site)refer to report for address and phone number NMR Lip[employer] 538 nmol/L Abnormal [facility] Work Phone: Comment on above: ORDERED: L IPID, TSH, LIPOPROTEIN, CBCD, CMPJOHN ROOF ORDERED: LIPID, [facility] (refer to report for specific site)refer to report for address and phone number NMR Lip[employer] 29.5 umol/L Abnormal [facility] Internal [facility] Work Phone: Comment on above: ORDERED: L IPID, TSH, LIPOPROTEIN, CBCD, CMPJOHN ROOF ORDERED: LIPID, [facility] (refer to report for specific site)refer to report for address and phone number NMR Lip[employer] 998 nmol/L Normal [facility] Work Phone: Comment on above: Low < 1000 Moderate 1000 - 1299 Borderline-High 1300 - 1599 High 1600 - 2000 Very High > 2000 ORDERED: L IPID, TSH, LIPOPROTEIN, CBCD, CMPJOHN ROOF ORDERED: LIPID, [facility] (refer to report for specific site)refer to report for address and phone number NMR [employer] 38 mg/dL Abnormal [facility] Internal Medicine Work Phone: Comment on above: ORDERED: L IPID, TSH, LIPOPROTEIN, CBCD, CMPJOHN ROOF ORDERED: LIPID, [facility] (refer to report for specific site)refer to report for address and phone number NMR Lipoprofile 68 mg/dL Normal 0-99 [facility] Internal Medicine Work Phone: Comment on above: Optimal < 100 Above optimal 100 - 129 Borderline 130 - 159 High 160 - 189 Very high > 189LDL-C is inaccurate if patient is non-fasting. ORDERED: L IPID, TSH, LIPOPROTEIN, CBCD, CMPJOHN ROOF ORDERED: LIPID, [facility] (refer to report for specific site)refer to report for address and phone number Thyroid Stim Hormone (TSH)Or dered By: Hand Fabric Cutter on 11-21-2017 Thyrotropin Qn 2.27 {uIU/mL} Normal 0.358-3.74 [facility] Internal Medicine Work Phone: Comment on above: ORDERED: L IPID, TSH, LIPOPROTEIN, CBCD, CMPJOHN ROOF ORDERED: LIPID, [facility] [address] [place], [place], [phone] PSA,Total- DiagnosticOrdered By: Hand Fabric Cutter on 07-24-2017 PSA,Total- Diagnostic < 0.01 Normal 0.0-4.0 [facility] prehensive Internal Medicine Work Phone: Comment on above: This test was perfor med using the TPSA assay method for the[employer] chemistry system. Values obtained with differentassay methods cannot be used interchangably.When changing PSA assays in the course of monitoring apatient, additional sequential testing should be carriedout to confirm baseline values. [facility] [address] [place], [place], [phone] PSA,Total- DiagnosticOrdered By: Hand Fabric Cutter on 04-21-2017 PSA,Total- Diagnostic < 0.01 Normal 0.0-4.0 [facility] prehensive Internal Medicine Work Phone: Comment on above: This test was perfor med using the TPSA assay method for the[employer] chemistry system. Values obtained with differentassay methods cannot be used interchangably.When changing PSA assays in the course of monitoring apatient, additional sequential testing should be carriedout to confirm baseline values. [facility] [address] [place], [place], [phone] HgA1C , Office ([phone])Ordere d By: Hilton Jay on 04-17-2017 Hemoglobin A1c/Hemoglobin.total mass fraction (Bld) 5.3 % Normal 4.6 - 7.1 Comprehensiv e Internal Medicine Work Phone: Bilirubin, DirectOrdered By: Hand Fabric Cutter on 04-15-2017 Bilirubin.conjugated mass conc 0.19 mg/dL Normal 0.00-0.30 [facility] Work Phone: Comment on above: LIVER AND LIPID FOR DR MEZAOrder Date: 10/18/16Order Info: [id number] - *Hepatic Function PanelOrder Info: [id number] - *Lipid Profile CC PCPComments: 12 hours fasting, may have water.[facility] [address] [place], [place], [phone] CBC W/Diff, AutomatedOrdered By: Hand Fabric Cutter on 04-15-2017 Absolute Neut 5.0 {X10_3/uL} Normal 2.0-7.7 Compreh ensive Internal Medicine Work Phone: Comment on above: LIVER [facility]IPID [facility] [address] [place], [place], [phone] Basophils/100 WBC (Bld) 0.3 % Normal 0-1 C omprehensive Internal Medicine Work Phone: Comment on above: LIVER [facility] LIPID FOR [facility] [address] [place], [place], [phone] Eosinophils/100 WBC (Bld) 4.6 % Normal 0-5 [facility] Work Phone: Comment on above: LIVER AND LIPID FOR [facility] [address] [place], [place], [phone]) Erythrocyte distribution width Ratio (RBC) 13.9 % Normal 11.6-14.6 [facility] Work Phone: Comment on above: LIVER AND LIPID FOR [facility] [address] [place], [place], [phone] Hematocrit Volume Fraction (Bld) 45.6 % Normal 40-54 [facility] Work Phone: Comment on above: LIVER AND LIPID FOR [facility] Juzkhhllur4774L[address]aro [place], [id number] Hemoglobin mass conc (Bld) 15.1 g/dL Normal 13.0-16.5 [facility] Work Phone: Comment on above: LIVER AND LIPID FOR [facility] Ijkupvmwod3892L[address] [place], [address] IM GRAN % 0.200 % Normal 0.0-0.9 [facility] Work Phone: Comment on above: IG% - Immature Granu locytes (promyelocytes, myelocytes andmetamyelocytes) > 1% indicates that a LEFT SHIFT is Present. LIVER AND LIPID FOR [facility] Medkmhjfhx8451[place], [address] Lymphocytes #/vol (Bld) 2.73 {X10_3/ul} Normal 0.83-4. 51 [facility] Work Phone: Comment on above: LIVER AND LIPID FOR [facility] [address] [place], [address] Lymphocytes/100 WBC (Bld) 30.4 % Normal 19-41 [facility] Work Phone: Comment on above: LIVER AND LIPID FOR [facility] Hvchwbfebc6289Lázrao [place], [address] MCH Entitic mass (RBC) 31.3 pg Normal 27.0-32.0 [facility] Work Phone: Comment on above: LIVER AND LIPID FOR [facility] [address] [place], [address] MCHC mass conc (RBC) 33.1 {g/gl} Normal 32-36 [facility] Internal Medicine Work Phone: Comment on above: LIVER AND LIPID FOR [facility] [address] [place], [address] MCV Entitic volume (RBC) 94.6 fL Abnormal 80-94 [facility] Work Phone: Comment on above: LIVER AND LIPID FOR [facility] Byck[address]oxksm[address], [address] Monocytes/100 WBC (Bld) 9.2 % Normal 0-10 C omprehensive Internal Medicine Work Phone: Comment on above: LIVER AND LIPID FOR [facility] [address] [place], [address] Neutrophils/100 WBC (Bld) 55.3 % Normal 47-70 [facility] Work Phone: Comment on above: LIVER AND LIPID FOR [facility] [address]qxdfdehe7[address] [place], [address] Platelet mean volume Entitic volume (Bld) 10.2 fL Normal 6.2-12.0 Comprehensi ve Internal Medicine Work Phone: Comment on above: LIVER AND LIPID FOR [facility] W[address]fsrucd[address] [place], [address] Platelets #/vol (Bld) 208 10*3/uL Normal 150-450 Co mprehensive Internal Medicine Work Phone: Comment on above: LIVER AND LIPID FOR [facility] [address] [place], [address] RBC #/vol (Bld) 4.82 {M/mm3} Normal 4.6-6.2 Compreh ensive Internal Medicine Work Phone: Comment on above: LIVER AND LIPID FOR [facility] [address]yfw[address] [place], [address] RDW SD 47.8 fL Abnormal 35.1-43.9 [facility] Work Phone: Comment on above: LIVER AND LIPID FOR [facility] Qtooxuzoba[address] [place], [place], [id number] WBC #/vol (Bld) 9.0 10*3/uL Normal 4.4-11.0 Comprehe nsive Internal Medicine Work Phone: Comment on above: LIVER AND LIPID FOR DR Moser [facility] [address]tsulzpfv[address] [place], [id number] Comprehensive Metabolic Prof ilOrdered By: Hand Fabric Cutter on 04-15-2017 Comprehensive metabolic 2000 panel 33 U/L Normal 16-61 [facility] Work Phone: Comment on above: Please note revised ALT reference range [id number]/28/2018. LIVER AND LIPID FOR DR Curiel Date: 10/18/16Order Info: 0788-1 - *Hepatic Function PanelOrder Info: [id number] - *Lipid Profile CC PCPComments: 12 hours fasting, may have water.[facility] [address] [place], [phone] Comprehensive metabolic 2000 panel 3.8 mmol/L Normal 3.5-5.1 [facility] Work Phone: Comment on above: LIVER AND LIPID FOR DR Cureil Date: 10/18/16Order Info: 0788-1 - *Hepatic Function PanelOrder Info: [id number] - *Lipid Profile CC PCPComments: 12 hours fasting, may have water.[facility] [address] [place], [address] Comprehensive metabolic 2000 panel 4 1 Abnormal 5-15 [facility] Work Phone: Comment on above: LIVER AND LIPID FOR DR MEZAOrder Date: 10/18/16Order Info: 0788-1 - *Hepatic Function PanelOrder Info: [id number] - *Lipid Profile CC PCPComments: 12 hours fasting, may have water.[facility] [address]weutlif[address] [place], [address] Comprehensive metabolic 2000 panel 20 U/L Normal 15-37 [facility] Work Phone: Comment on above: LIVER AND LIPID FOR DR Curiel Date: 10/18/16Order Info: 0788-1 - *Hepatic Function PanelOrder Info: [id number] - *Lipid Profile CC PCPComments: 12 hours fasting, may have water.[facility] [address] [place], [address] Comprehensive metabolic 2000 panel 8.5 mg/dL Normal 8.5-10.1 [facility] Work Phone: Comment on above: LIVER AND LIPID FOR DR MEZAOrder Date: 10/18/16Order Info: 0788-1 - *Hepatic Function PanelOrder Info: [id number] - *Lipid Profile CC PCPComments: 12 hours fasting, may have water.[facility] [address] [place], [phone] Comprehensive metabolic 2000 panel 1.0 {RATIO} Normal 0.9-2.4 [facility] Work Phone: Comment on above: LIVER AND LIPID FOR DR MEZAOrder Date: 10/18/16Order Info: 0788-1 - *Hepatic Function PanelOrder Info: [id number] - *Lipid Profile CC PCPComments: 12 hours fasting, may have water.[facility] [address]uz[address] [place], [place], [address] Comprehensive metabolic 2000 panel 41 U/L Abnormal 45-117 [facility] Work Phone: Comment on above: LIVER AND LIPID FOR DR MEZAOrder Date: 10/18/16Order Info: 0788-1 - *Hepatic Function PanelOrder Info: [id number] - *Lipid Profile CC PCPComments: 12 hours fasting, may have water.[facility] [address]ks[address]cx[address] [place], [place], [address] Comprehensive metabolic 2000 panel 3.5 g/dL Normal 3.2-5.0 [facility] Work Phone: Comment on above: LIVER AND LIPID FOR DR MEZAOrder Date: 10/18/16Order Info: 0788-1 - *Hepatic Function PanelOrder Info: [id number] - *Lipid Profile CC PCPComments: 12 hours fasting, may have water.[facility] [address]ks[address]egrx[address] [place], [place], [address] Comprehensive metabolic 2000 panel 75 mL/min Normal [facility] Work Phone: Comment on above: GFR Calc LIVER AND LIPID FOR DR MEZAOrder Date: 10/18/16Order Info: 0788-1 - *Hepatic Function PanelOrder Info: [id number] - *Lipid Profile CC PCPComments: 12 hours fasting, may have water.[facility] [address] [place], [place], [address] Comprehensive metabolic 2000 panel 62 mL/min Normal [facility] Work Phone: Comment on above: Non- GFR Calc LIVER AND LIPID FOR DR MEZAOrder Date: 10/18/16Order Info: 0788-1 - *Hepatic Function PanelOrder Info: [id number] - *Lipid Profile CC PCPComments: 12 hours fasting, may have water.[facility] [address] [place], [place], [address] Comprehensive metabolic 2000 panel 1.22 mg/dL Normal 0.70-1.30 [facility] Work Phone: Comment on above: The validity of the calculated GFR AND GFRAA in patients over70 years has not been determined. Clinical correlation isessential. LIVER AND LIPID FOR DR MEZAOrder Date: 10/18/16Order Info: 0788-1 - *Hepatic Function PanelOrder Info: [id number] - *Lipid Profile CC PCPComments: 12 hours fasting, may have water.[facility] [address] [place], [place], [address] Comprehensive metabolic 2000 panel 19 mg/dL Abnormal 7-18 [facility] Work Phone: Comment on above: LIVER AND LIPID FOR DR MEZAOrder Date: 10/18/16Order Info: 0788-1 - *Hepatic Function PanelOrder Info: [id number] - *Lipid Profile CC PCPComments: 12 hours fasting, may have water.[facility] [address] [place], [place], [address] Comprehensive metabolic 2000 panel 107 mg/dL Abnormal 74-106 [facility] Work Phone: Comment on above: Fasting Glucose resu lt from 100 to 125 mg/dLsuggests IMPAIRED HOMEOSTASIS per A.D.A. criteria.Please note revised GLUCOSE reference range /02/2018. LIVER AND LIPID FOR DR Curiel Date: 10/18/16Order Info: 0788-1 - *Hepatic Function PanelOrder Info: [id number] - *Lipid Profile CC PCPComments: 12 hours fasting, may have water.[facility] [address]xhezsc[address] [place], [id number] Comprehensive metabolic 2000 panel 7.1 g/dL Normal 6.4-8.2 [facility] Work Phone: Comment on above: LIVER AND LIPID FOR DR Curiel Date: 10/18/16Order Info: 0788-1 - *Hepatic Function PanelOrder Info: [id number] - *Lipid Profile CC PCPComments: 12 hours fasting, may have water.[facility] [address]uhjxch[address] [place], [place], [address] Comprehensive metabolic 2000 panel 15.6 {RATIO} Normal 10-20 [facility] Work Phone: Comment on above: LIVER AND LIPID FOR DR Curiel Date: 10/18/16Order Info: 0788-1 - *Hepatic Function PanelOrder Info: [id number] - *Lipid Profile CC PCPComments: 12 hours fasting, may have water.[facility] [address]tl[address]yep[address] [place], [address] Comprehensive metabolic 2000 panel 140 mmol/L Normal 136-145 [facility] Work Phone: Comment on above: LIVER AND LIPID FOR DR Curiel Date: 10/18/16Order Info: 0788-1 - *Hepatic Function PanelOrder Info: [id number] - *Lipid Profile CC PCPComments: 12 hours fasting, may have water.[facility] [address]ktlplps[address] [place], [address] Comprehensive metabolic 2000 panel 1.10 mg/dL Abnormal 0.20-1.00 [facility] Work Phone: Comment on above: LIVER AND LIPID FOR DR Curiel Date: 10/18/16Order Info: 0788-1 - *Hepatic Function PanelOrder Info: [id number] - *Lipid Profile CC PCPComments: 12 hours fasting, may have water.[facility] I[address]veywfq[address] [place], [place], [address] Comprehensive metabolic 2000 panel 106 mmol/L Normal 98-107 [facility] Work Phone: Comment on above: LIVER AND LIPID FOR DR MEZAOrder Date: 10/18/16Order Info: 0788-1 - *Hepatic Function PanelOrder Info: [id number] - *Lipid Profile CC PCPComments: 12 hours fasting, may have water.[facility] Ecftznwjrt[address] [place], [place], [phone] Comprehensive metabolic 2000 panel 30.0 mmol/L Normal 21.0-32.0 [facility] Work Phone: Comment on above: LIVER AND LIPID FOR DR MEZAOrder Date: 10/18/16Order Info: 0788-1 - *Hepatic Function PanelOrder Info: [id number] - *Lipid Profile CC PCPComments: 12 hours fasting, may have water.[facility] [address]ur[address] [place], [place], [address] Comprehensive metabolic 2000 panel 3.6 g/dL Normal 2.2-4.2 [facility] Work Phone: Comment on above: LIVER AND LIPID FOR DR MEZAOrder Date: 10/18/16Order Info: 0788-1 - *Hepatic Function PanelOrder Info: [id number] - *Lipid Profile CC PCPComments: 12 hours fasting, may have water.[facility] [address]bj[address] [place], [place], [address] Lipid ProfileOrdered By: Florence tem Business Strategist on 04-15-2017 Cholesterol in HDL mass conc 37 mg/dL Abnormal [facility] Work Phone: Comment on above: The drugs N-Acetylcy steine and Metamizole may falselydepress this assay. Reference Range HDL <40 mg/dL Low HDL Cholesterol HDL >or= 60 mg/dL High HDL Cholesterol LIVER AND LIPID FOR DR MEZAOrder Date: 10/18/16Order Info: 0788-1 - *Hepatic Function PanelOrder Info: [id number] - *Lipid Profile CC PCPComments: 12 hours fasting, may have water.[facility] [address] [place], [place], [address] Cholesterol in LDL mass conc 77 mg/dL Normal 0-130 [facility] Work Phone: Comment on above: LIVER AND LIPID FOR CHUCKYOrder Date: 10/18/16Order Info: 0788-1 - *Hepatic Function PanelOrder Info: [id number] - *Lipid Profile CC PCPComments: 12 hours fasting, may have water.[facility] [address] [place], [place], [address] Cholesterol in VLDL mass conc 27 mg/dL Normal 5-40 [facility] Work Phone: Comment on above: LIVER AND LIPID FOR CHUCKYOrder Date: 10/18/16Order Info: 0788-1 - *Hepatic Function PanelOrder Info: [id number] - *Lipid Profile CC PCPComments: 12 hours fasting, may have water.[facility] [address] [place], [address] Cholesterol mass conc 141 mg/dL Normal [facility] prehensive Internal Medicine Work Phone: Comment on above: <200 mg/dL Desirable 200-240 mg/dL Borderline >240 mg/dL High Risk LIVER AND LIPID FOR CHUCKYOrder Date: 10/18/16Order Info: 0788-1 - *Hepatic Function PanelOrder Info: [id number] - *Lipid Profile CC PCPComments: 12 hours fasting, may have water.[facility] [address] [place], [place], [address] Triglyceride mass conc 133 mg/dL Normal Co [facility] Work Phone: Comment on above: The drugs N-Acetylcy steine and Metamizole may falselydepress this assay.Serum Triglycerides Reference Interval Normal <150 mg/dL Borderline high 150 - 199 mg/dL High 200 - 499 mg/dL Very High > or = 500 mg/dL LIVER AND LIPID FOR CHUCKYOrder Date: 10/18/16Order Info: 0788-1 - *Hepatic Function PanelOrder Info: [id number] - *Lipid Profile CC PCPComments: 12 hours fasting, may have water.[facility] [address] [place], [place], [phone] MicroalbOrdered By: Theodore palma on 04-15-2017 Creatinine mass conc 17.2 {mg/g_CRE} Normal [facility] Work Phone: Comment on above: [facility] [address] [place], [place], [phone] Creatinine mass conc 269.00 mg/dL Normal Co mprehensive Internal Medicine Work Phone: Comment on above: [facility] [address] [place], [place], [address] Microalb 46.4 mg/L Normal [facility] Work Phone: Comment on above: [facility] [address] [place], [place], [phone] Thyroid Stim Hormone (TSH)Or dered By: Hand Fabric Cutter on 04-15-2017 Thyrotropin Qn 2.50 {uIU/mL} Normal 0.358-3.74 Compreh ensive Internal Medicine Work Phone: Comment on above: LIVER AND LIPID FOR DR MEZAOrder Date: 10/18/16Order Info: 0788-1 - *Hepatic Function PanelOrder Info: [id number] - *Lipid Profile CC PCPComments: 12 hours fasting, may have water.[facility] [address] [place], [place], [phone] Urinalysis, CompleteOrdered By: Hand Fabric Cutter on 04-15-2017 Protein mass conc (U) 30 mg/dL Abnormal Com prehensive Internal Medicine Work Phone: Comment on above: How was Urine Obtain ed? [facility] [address] [place], [place], [phone] RBC #/vol (U) 0-5 SEEN Normal 0-5 Comprehensi ve Internal Medicine Work Phone: Comment on above: How was Urine Obtain ed? [facility] [address] [place], [address] Urinalysis complete panel - Urine 0 SEEN Normal [facility] Work Phone: Comment on above: How was Urine Obtain ed? [facility] [address] [place], [address] Urinalysis complete panel - Urine 5-10 SEEN Normal 0-5 [facility] Work Phone: Comment on above: How was Urine Obtain ed? [facility] [address] [place], [address] Urinalysis complete panel - Urine 100 /ul Abnormal [facility] Work Phone: Comment on above: How was Urine Obtain ed? [facility] [address] [place], [address] Urinalysis complete panel - Urine RARE Normal [facility] Work Phone: Comment on above: How was Urine Obtain ed? [facility] [address]vtsctr[address] [place], [address] Urinalysis complete panel - Urine 10 /ul Abnormal [facility] Work Phone: Comment on above: How was Urine Obtain ed? [facility] [address]hg[address] [place], [address] Urinalysis complete panel - Urine Negative Normal [facility] Work Phone: Comment on above: How was Urine Obtain ed? [facility] [address]hum[address] [place], [address] Urinalysis complete panel - Urine Normal Normal [facility] Work Phone: Comment on above: How was Urine Obtain ed? [facility] [address]ic[address] [place], [address] Urinalysis complete panel - Urine 0-5 SEEN Normal 0-5 [facility] Work Phone: Comment on above: How was Urine Obtain ed? [facility] F[address]otqnhqa[address] [place], [place], [phone] Urinalysis complete panel - Urine 5.0 1 Normal 5.0 - 8.0 [facility] Work Phone: Comment on above: How was Urine Obtain ed? [facility] [address] [place], [address] Urinalysis complete panel - Urine 1.020 1 Normal 1.002-1.03 0 [facility] Work Phone: Comment on above: How was Urine Obtain ed? [facility] Enpbcspkxd[address] [place], [place], [address] Urinalysis complete panel - Urine Clear Normal [facility] Work Phone: Comment on above: How was Urine Obtain ed? [facility] [address]kskkxbtki6[address] [place], [place], [address] Urinalysis complete panel - Urine Yellow Normal [facility] Work Phone: Comment on above: How was Urine Obtain ed? [facility] S[address]qelffdqp24[address], [address] Urinalysis complete panel - Urine 30 mg/dL Abnormal [facility] Work Phone: Comment on above: How was Urine Obtain ed? [facility] Euwcfrvsca[address] [place], [place], [phone] Thyroid Stim Hormone (TSH)Or dered By: Hand Fabric Cutter on 02-25-2017 Thyrotropin Qn 1.56 {uIU/mL} Normal 0.358-3.74 Compreh ensive Internal Medicine Work Phone: Comment on above: [facility] [address] [place], [place], [phone] Blood Gases by CPSOrdered By : Hand Fabric Cutter on 01-06-2017 Gas panel - Arterial blood 7.38 1 Normal 7.35-7.45 [facility] Work Phone: Comment on above: [facility] spital LaboratoryPoint of [address] [place] [address] Gas panel - Arterial blood ART Normal [facility] Work Phone: Comment on above: [facility] [address] [place] [address] Gas panel - Arterial blood 94 % Abnormal 95-99 [facility] Work Phone: Comment on above: [facility] [address] [place] [address] Gas panel - Arterial blood 21 mmol/L Normal [facility] Work Phone: Comment on above: [facility] [address] [place] [address] Gas panel - Arterial blood -5 mmol/L Abnormal [facility] Work Phone: Comment on above: [facility] [address]ym[address] [place] [address] Gas panel - Arterial blood 20.4 mmol/L Abnormal 22-26 [facility] Work Phone: Comment on above: [facility] [address] [place] [address] Gas panel - Arterial blood 74 {mmHG} Abnormal 75-100 [facility] Work Phone: Comment on above: [facility] [address] [place] [address] Gas panel - Arterial blood 34.5 {mmHg} Abnormal 35-45 [facility] Work Phone: Comment on above: [facility] [address] [place] [address] Venous Blood GasOrdered By: Hand Fabric Cutter on 01-06-2017 Gas panel - Arterial blood 38 {mmHg} Normal 25-40 [facility] Work Phone: Comment on above: [facility] spital LaboratoryPoint of [address] [place], [place] [phone] Gas panel - Arterial blood 23 mmol/L Normal 23-33 [facility] Work Phone: Comment on above: [facility] spital LaboratoryPoint of [address] [place] [address] Gas panel - Arterial blood 70 % Normal 50-70 [facility] Work Phone: Comment on above: [facility] spital LaboratoryPoint of Zbid[address] [place], [place] [phone] Gas panel - Arterial blood -3 mmol/L Abnormal -1.0-3.5 [facility] Work Phone: Comment on above: [facility] spital LaboratoryPoint of [address]pec[address] [place], [place] [phone] Gas panel - Arterial blood 22 mmol/L Normal 22-26 [facility] Work Phone: Comment on above: [facility] spital LaboratoryPoint of [address] [place] [address] Gas panel - Arterial blood 37 {mmHg} Normal 25-40 [facility] Work Phone: Comment on above: [facility] spital LaboratoryPoint of [address] [place] [address] Gas panel - Arterial blood 36.6 {mmHg} Abnormal 41-51 [facility] Work Phone: Comment on above: [facility] spital LaboratoryPoint of [address] [place] [address] Gas panel - Arterial blood 7.39 1 Normal 7.32-7.42 [facility] Work Phone: Comment on above: [facility] spital LaboratoryPoint of [address] [place] [address] Gas panel - Arterial blood DARIA Normal [facility] Work Phone: Comment on above: [facility] LaboratoryPoint of [address] [place] [address] Gas panel - Arterial blood 39.0 {mmHg} Abnormal 41-51 [facility] Work Phone: Comment on above: [facility]Point [facility] [place] [address] Gas panel - Arterial blood 7.36 1 Normal 7.32-7.42 [facility] Work Phone: Comment on above: [facility] LaboratoryPoint [facility] [place] [phone] Basic Metabolic Profile (BMP )Ordered By: Hand Fabric Cutter on 01-02-2017 Basic metabolic 2000 panel 8.6 mg/dL Normal 8.5-10.1 [facility] Work Phone: Comment on above: Order Date: 01/02/17 Order Info: [id number] - *BMPComments: Reason:[facility] [address] [place], [place], [phone] Basic metabolic 2000 panel 7 1 Normal 5-15 [facility] Work Phone: Comment on above: Order Date: 01/02/17 Order Info: [id number] - *BMPComments: Reason:[facility] [address] [place], [place], [phone] Basic metabolic 2000 panel 86 mg/dL Normal 70-110 [facility] Work Phone: Comment on above: Order Date: 01/02/17 Order Info: [id number] - *BMPComments: Reason:[facility] [address] [place], [id number] Basic metabolic 2000 panel 1.06 mg/dL Normal 0.70-1.30 [facility] Work Phone: Comment on above: The validity of the calculated GFR AND GFRAA in patients over70 years has not been determined. Clinical correlation isessential. Order Date: 01/02/17 Order Info: 0667-1 - *BMPComments: Reason:[facility] [address] [place], [address] Basic metabolic 2000 panel 25.0 mmol/L Normal 21.0-32.0 [facility] Work Phone: Comment on above: Order Date: 01/02/17 Order Info: 0667-1 - *BMPComments: Reason:[facility] [address] [place], [address] Basic metabolic 2000 panel 20 mg/dL Abnormal 7-18 [facility] Work Phone: Comment on above: Order Date: 01/02/17 Order Info: 0667-1 - *BMPComments: Reason:[facility] [address] [place], [address] Basic metabolic 2000 panel 88 mL/min Normal [facility] Work Phone: Comment on above: GFR Calc Order Date: 01/02/17 Order Info: 0667-1 - *BMPComments: Reason:[facility] [address] [place], [address] Basic metabolic 2000 panel 108 mmol/L Abnormal 98-107 [facility] Work Phone: Comment on above: Order Date: 01/02/17 Order Info: 0667-1 - *BMPComments: Reason:[facility] [address] [place], [address] Basic metabolic 2000 panel 73 mL/min Normal [facility] Work Phone: Comment on above: Non- GFR Calc Order Date: 01/02/17 Order Info: 0667-1 - *BMPComments: Reason:[facility] [address] [place], [address] Basic metabolic 2000 panel 18.9 {RATIO} Normal 10-20 [facility] Work Phone: Comment on above: Order Date: 01/02/17 Order Info: 0667-1 - *BMPComments: Reason:[facility] [address] [place], [address] Basic metabolic 2000 panel 4.7 mmol/L Normal 3.5-5.1 [facility] Work Phone: Comment on above: Order Date: 01/02/17 Order Info: 0667-1 - *BMPComments: Reason:[facility] [address] [place], [address] Basic metabolic 2000 panel 140 mmol/L Normal 136-145 [facility] Work Phone: Comment on above: Order Date: 01/02/17 Order Info: 0667-1 - *BMPComments: Reason:[facility] [address] [place], [address] CBC-Complete Blood Cnt No Di ffOrdered By: Hand Fabric Cutter on 01-02-2017 Erythrocyte distribution width Ratio (RBC) 14.4 % Normal 11.6-14.6 [facility] Work Phone: Comment on above: Order Date: 01/02/17 Order Info: 26467-2 - *CBC without DiffComments: Reason:[facility] [address] [place], [address] Hematocrit Volume Fraction (Bld) 45.4 % Normal 40-54 [facility] Work Phone: Comment on above: Order Date: 01/02/17 Order Info: 82470-6 - *CBC without DiffComments: Reason:[facility] [address] [place], [address] Hemoglobin mass conc (Bld) 14.8 g/dL Normal 13.0-16.5 [facility] Work Phone: Comment on above: Order Date: 01/02/17 Order Info: 27159-4 - *CBC without DiffComments: Reason:[facility] [address] [place], [id number] MCH Entitic mass (RBC) 31.0 pg Normal 27.0-32.0 [facility] Internal Medicine Work Phone: Comment on above: Order Date: 01/02/17 Order Info: 18875-3 - *CBC without DiffComments: Reason:[facility] [address] [place], [id number] MCHC mass conc (RBC) 32.6 {g/gl} Normal 32-36 Com [facility] Internal Medicine Work Phone: Comment on above: Order Date: 01/02/17 Order Info: 99197-1 - *CBC without DiffComments: Reason:[facility] [address] [place], [address] MCV Entitic volume (RBC) 95.2 fL Abnormal 80-94 [facility] Internal Medicine Work Phone: Comment on above: Order Date: 01/02/17 Order Info: 79521-6 - *CBC without DiffComments: Reason:[facility] [address] [place], [address] Platelet mean volume Entitic volume (Bld) 10.5 fL Normal 6.2-12.0 [facility] Work Phone: Comment on above: Order Date: 01/02/17 Order Info: 82522-1 - *CBC without DiffComments: Reason:[facility] [address] [place], [address]( Platelets #/vol (Bld) 216 10*3/uL Normal 150-450 [facility] Internal Medicine Work Phone: Comment on above: Order Date: 01/02/17 Order Info: 96301-4 - *CBC without DiffComments: Reason:[facility] [address] [place], [address] RBC #/vol (Bld) 4.77 {M/mm3} Normal 4.6-6.2 Compreh ensive Internal Medicine Work Phone: Comment on above: Order Date: 01/02/17 Order Info: 60826-9 - *CBC without DiffComments: Reason:[facility] [address] [place], [place], [address] WBC #/vol (Bld) 8.5 10*3/uL Normal 4.4-11.0 Comprehe nsive Internal Medicine Work Phone: Comment on above: Order Date: 01/02/17 Order Info: 70182-8 - *CBC without DiffComments: Reason:[facility] [address] [place], [place], [address] CBC-Complete Blood Cnt No Diff 49.8 fL Abnormal 35.1-43.9 [facility] Work Phone: Comment on above: Order Date: 01/02/17 Order Info: 41545-7 - *CBC without DiffComments: Reason:[facility] [address] [place], [place], [address] Partial Thromboplast TimeOrd ered By: Hand Fabric Cutter on 01-02-2017 aPTT Coag time (PPP) 27.2 s Normal 24.1-36.2 Comp rehensive Internal Medicine Work Phone: Comment on above: Order Date: 01/02/17 Order Info: 6301-6 - *PT/INROrder Date: 12/19/16Order Info: 68402-2 - *PTT-[facility]romboplast[facility]WK[facility] [address] [place], [place], [id number] Prothrombin Time w/INROrdere d By: Hand Fabric Cutter on 01-02-2017 INR Coag RelTime (PPP) 1.1 {INR} Normal Co m[facility] Work Phone: Comment on above: Order Date: 01/02/17 Order Info: 6301-6 - *PT/INROrder Date: 12/19/16Order Info: 67523-9 - *PTT-Partial Thromboplastin TimeW[address] [place], [address] Prothrombin time (PT) Coag time (PPP) 13.4 s Normal 11.7-14.9 [facility] Work Phone: Comment on above: Order Date: 01/02/17 Order Info: 6301-6 - *PT/INROrder Date: 12/19/16Order Info: 45212-6 - *PTT-Partial Thromboplastin TimeWKettering Health Hamilton [address] [place], [address] IMMUNOHISTOCHEMISTRYOrdered By: Hand Fabric Cutter on 12-30-2016 IMMUNOHISTOCHEMISTRY See Note Normal Comp rehensive [facility] Medicine Work Phone: Comment on above: Patient: JULIA ALMEIDA : 1945 (71/M) Acct Num: [id number] Phys: Lorene LADD,[place] Unit Num: [id number] Loc: LABSPEC Specimen: [id number] Received: 12/31/161421 Spec Type: IMMUNO TISSUES TISSUES: SPECIMEN INFORMATION: Tissue Source: A - Right prostate, apex, B - Right prostate, mid, C - Right prostate, base, F - Left prostate, base Clinical Info: Elevated PSA Specimen Number: [id number] A, B, C, F CPT code: 86629 x3, 68887 x3 METHODOLOGY: Deparaffinized sections of prefer/formalin-fixed tissue or PAP/DQ stained slides are incubated with monoclonal/polyclonal antibodies/oligonucleotide probes. Localization is made via biotin free immunoperoxidase method. Appropriate controls are performed and reacted as expected. Results on target cell population are indicated in the following table: RESULTS: ANTIBODY / CLONE RESULT Block A P40 (BC28) negative 34BE12 (34BE12) negative Block B P40 (BC28) negative 34BE12 (34BE12) negative Block C P40 (BC28) * 34BE12 (34BE12) * Block F P40 (BC28) negative 34BE12 (34BE12) negative * Noncontributory. Tissue is exhausted. These tests were developed and their performance characteristics determined by [facility]. They may not have been cleared or approved by the U.S. Food and Drug Administration. The FDA has determined that such clearance or approval is not necessary. INTERPRETATION: A. Right prostate, apex, core biopsy: Adenocarcinoma. B. Right prostate, mid, core biopsy: Adenocarcinoma. C. Right prostate, base, core biopsy: Adenocarcinoma. F. Left prostate, base, core biopsy: Adenocarcinoma. AM:batool 01/02/17 PHYSICIAN AND INSTITUTION [facility] [address] [place], [place] [address] Signed Tray Sharon 01/02/17 [facility] spital [address] [facility]. [place], [place], [phone] PROSTATE BIOPSY BILATERALOrd ered By: Hand Fabric Cutter on 12-30-2016 PROSTATE BIOPSY BILATERAL See Note Normal [facility] Work Phone: Comment on above: Patient: JULIA ALMEIDA : 1945 (71/M) Acct Num: [id number] Phys: Lorene LADD,[place] Unit Num: [id number] Loc: LABSPEC Specimen: [id number] Received: 12/30/16 - 1430 Spec Type: PROST BX TISSUES TISSUES: COMMENT A, B, C, F - Immunohistochemistry ([id number]) supports the above diagnosis. Case has been reviewed in consultation with Dr. Augustin who concurs with the abovediagnosis. IDC:SJ GROSS DESCRIPTION A - Received is one container designated prostate, right apex. The specimen consists of two elongated fragments of light mars-white soft tissue measuring 1.3and 1.5 cm in length and 0.1 cm in diameter. The specimen is totally submitted in one cassette. B - Received is one container designated prostate, right mid. The specimen consists of one elongated fragment of light mars-white soft tissue measuring 1.4 cm in length and 0.1 cm in diameter. The specimen is totally submitted in one cassette. C - Received is one container designated prostate, right base. The specimen consists of two elongated fragments of light mars-white soft tissue each measuring 1.4 cm in length and 0.1 cm in diameter. The specimen is totally submitted in one cassette. D - Received is one container designated prostate, left apex. The specimen consists of two elongated fragments of light mars-white soft tissue measuring 0.5and 1.2 cm in length and 0.1 cm in diameter. The specimen is totally submitted in one cassette. E - Received is one container designated prostate, left mid. The specimen consists of two elongated fragments of light mars-white soft tissue each measuring 1.2 cm in length and 0.1 cm in diameter. The specimen is totally submitted in one cassette. F - Received is one container designated prostate, left base. The specimen consists of two elongated fragments of light mars-white soft tissue each measuring 1.3 cm in length and 0.1 cm in diameter. The specimen is totally submitted in one cassette. / SJ:batool 12/30/16 TC:0 CPT: G0146 HEADER OPERATION: Prostate biopsy PRE-OP DIAGNOSIS: Elevated PSA TISSUE SUBMITTED: A - Right apex, B - Right mid, C - Right base, D - Left apex,E - Left mid, F - Left base MICROSCOPIC DESCRIPTION Slides are reviewed. MICROSCOPIC DIAGNOSIS A. Right prostate, apex, core biopsy: Adenocarcinoma: [place] grade: 7 (4+3) Cores involved: 2 out of 2 Tissue involved: 5% Greatest tumor length: 1.5 mm B. Right prostate, mid, core biopsy: Adenocarcinoma: Seema grade: 6 (3+3) Cores involved: 1 out of 1 Tissue involved: 10% Greatest tumor length: 1 mm Perineural invasion: Positive C. Right prostate, base, core biopsy: Adenocarcinoma: [place] grade: 7 (3+4) Cores involved: 1 out of 2 Tissue involved: 1% Greatest tumor length: 0.5 mm D. Left prostate, apex, core biopsy: Mild chronic inflammation and focal acute inflammation. E. Left prostate, mid, core biopsy: Mild chronic inflammation and glandular atrophy. F. Left prostate, base, core biopsy: Adenocarcinoma: [place] grade: 6 (3+3) Cores involved: 2 out of 2 Tissue involved: 4% Greatest tumor length: 1 mm AM:batool 12/31/16 Signed Tray Chanelih 01/02/17 [facility] [place] [address], [address] Protein mass conc See Note Normal Compreh ensive [facility] Medicine Work Phone: Comment on above: Patient: JULIA ALMEIDA : 1945 (71/M) Acct Num: [id number] Phys: Lorene LADD,[place] Unit Num: [id number] Loc: LABSPEC Specimen: [id number] Received: 12/30/16 - 143 Spec Type: PROST BX TISSUES TISSUES: COMMENT A, B, C, F - Immunohistochemistry ([id number]) supports the above diagnosis. Case has been reviewed in consultation with Dr. Augustin who concurs with the abovediagnosis. IDC:CHRISTIANO GROSS DESCRIPTION A - Received is one container designated prostate, right apex. The specimen consists of two elongated fragments of light mars-white soft tissue measuring 1.3and 1.5 cm in length and 0.1 cm in diameter. The specimen is totally submitted in one cassette. B - Received is one container designated prostate, right mid. The specimen consists of one elongated fragment of light mars-white soft tissue measuring 1.4 cm in length and 0.1 cm in diameter. The specimen is totally submitted in one cassette. C - Received is one container designated prostate, right base. The specimen consists of two elongated fragments of light mars-white soft tissue each measuring 1.4 cm in length and 0.1 cm in diameter. The specimen is totally submitted in one cassette. D - Received is one container designated prostate, left apex. The specimen consists of two elongated fragments of light mars-white soft tissue measuring 0.5and 1.2 cm in length and 0.1 cm in diameter. The specimen is totally submitted in one cassette. E - Received is one container designated prostate, left mid. The specimen consists of two elongated fragments of light mars-white soft tissue each measuring 1.2 cm in length and 0.1 cm in diameter. The specimen is totally submitted in one cassette. F - Received is one container designated prostate, left base. The specimen consists of two elongated fragments of light mars-white soft tissue each measuring 1.3 cm in length and 0.1 cm in diameter. The specimen is totally submitted in one cassette. / CHRISTIANO:batool 12/30/16 TC:0 CPT: G0146 HEADER OPERATION: Prostate biopsy PRE-OP DIAGNOSIS: Elevated PSA TISSUE SUBMITTED: A - Right apex, B - Right mid, C - Right base, D - Left apex,E - Left mid, F - Left base MICROSCOPIC DESCRIPTION Slides are reviewed. MICROSCOPIC DIAGNOSIS A. Right prostate, apex, core biopsy: Adenocarcinoma: Seema grade: 7 (4+3) Cores involved: 2 out of 2 Tissue involved: 5% Greatest tumor length: 1.5 mm B. Right prostate, mid, core biopsy: Adenocarcinoma: Seema grade: 6 (3+3) Cores involved: 1 out of 1 Tissue involved: 10% Greatest tumor length: 1 mm Perineural invasion: Positive C. Right prostate, base, core biopsy: Adenocarcinoma: Seema grade: 7 (3+4) Cores involved: 1 out of 2 Tissue involved: 1% Greatest tumor length: 0.5 mm D. Left prostate, apex, core biopsy: Mild chronic inflammation and focal acute inflammation. E. Left prostate, mid, core biopsy: Mild chronic inflammation and glandular atrophy. F. Left prostate, base, core biopsy: Adenocarcinoma: Seema grade: 6 (3+3) Cores involved: 2 out of 2 Tissue involved: 4% Greatest tumor length: 1 mm AM:rg 12/31/16 Signed Tray Sharon 01/02/17 [facility] [address] [facility] [place], [address] FECAL OCCULT- Tubes sent albertina e ([id number])Ordered By: Elizabeth Jeronimo on 11-20-2016 Hemoglobin.gastrointest inal Ql (St) Negative Normal [facility] Work Phone: Hemoglobin.gastrointest inal Ql (Stl) Negative Normal [facility]; [facility] Work Phone: PSA,Total - Annual ScreenOrd ered By: Hand Fabric Cutter on 11-12-2016 Prostate specific Ag mass conc 2.37 ng/mL Normal 0.00-4.00 [facility] Work Phone: Comment on above: This test was perfor med using the TPSA assay method for [employer] system. Values obtained with differentassay methods cannot be used interchangably.When changing PSA assays in the course of monitoring apatient, additional sequential testing should be carriedout to confirm baseline values. [facility] [address] [place], [place], [phone] Lipid ProfileOrdered By: Florence tem Business Strategist on 10-09-2016 Cholesterol in HDL mass conc 38 mg/dL Abnormal [facility] Work Phone: Comment on above: The drugs N-Acetylcy steine and Metamizole may falsely deressthis assay. Reference Range HDL <40 mg/dL Low HDL Cholesterol HDL >or= 60 mg/dL High HDL Cholesterol Order Date: 05/03/16 Order Info: 0788-1 - *Hepatic Function PanelOrder Info: [id number] - *Lipid Profile CC PCPComments: 12 hours fasting, may have water.[facility] [address] [place], [place], [phone] Cholesterol in LDL mass conc 64 mg/dL Normal 0-130 [facility] Work Phone: Comment on above: Order Date: 05/03/16 Order Info: 0788-1 - *Hepatic Function PanelOrder Info: 00502-9 - *Lipid Profile CC PCPComments: 12 hours fasting, may have water.[facility] [address] [place], [place], [phone] Cholesterol in VLDL mass conc 24 mg/dL Normal 5-40 [facility] Work Phone: Comment on above: Order Date: 05/03/16 Order Info: 0788-1 - *Hepatic Function PanelOrder Info: 99058-9 - *Lipid Profile CC PCPComments: 12 hours fasting, may have water.[facility] [address] [place], [place], [address] Cholesterol mass conc 126 mg/dL Normal Com prehensive Internal Medicine Work Phone: Comment on above: <200 mg/dL Desirable 200-240 mg/dL Borderline >240 mg/dL High Risk Order Date: 05/03/16 Order Info: 0788-1 - *Hepatic Function PanelOrder Info: 19609-3 - *Lipid Profile CC PCPComments: 12 hours fasting, may have water.[facility] [address] [place], [place], [address] Triglyceride mass conc 122 mg/dL Normal [facility] Internal Medicine Work Phone: Comment on above: The drugs N-Acetylcy steine and Metamizole may falsely deressthis assay.Serum Triglycerides Reference Interval Normal <150 mg/dL Borderline high 150 - 199 mg/dL High 200 - 499 mg/dL Very High > or = 500 mg/dL Order Date: 05/03/16 Order Info: 0788-1 - *Hepatic Function PanelOrder Info: 43460-8 - *Lipid Profile CC PCPComments: 12 hours fasting, may have water.[facility] [address] [place], [place], [phone] Liver ProfileOrdered By: Florence tem Business Strategist on 10-09-2016 Albumin mass conc 3.4 g/dL Normal 3.4-5.0 [facility] Internal Medicine Work Phone: Comment on above: Order Date: 05/03/16 Order Info: 0788-1 - *Hepatic Function PanelOrder Info: 36720-1 - *Lipid Profile CC PCPComments: 12 hours fasting, may have water.[facility] [address] [place], [place], [address] ALP enzyme act/vol 42 U/L Abnormal 45-117 [facility] Internal Medicine Work Phone: Comment on above: Order Date: 05/03/16 Order Info: 0788-1 - *Hepatic Function PanelOrder Info: 29599-2 - *Lipid Profile CC PCPComments: 12 hours fasting, may have water.[facility] [address] [place], [place], [address] ALT enzyme act/vol 29 U/L Normal 12-78 [facility] Internal Medicine Work Phone: Comment on above: Order Date: 05/03/16 Order Info: 0788-1 - *Hepatic Function PanelOrder Info: 61407-6 - *Lipid Profile CC PCPComments: 12 hours fasting, may have water.[facility] [address] [place], [address] AST enzyme act/vol 19 U/L Normal 15-37 [facility] Internal Medicine Work Phone: Comment on above: Order Date: 05/03/16 Order Info: 0788-1 - *Hepatic Function PanelOrder Info: 54661-2 - *Lipid Profile CC PCPComments: 12 hours fasting, may have water.[facility] [address] [place], [address] Bilirubin mass conc 1.10 mg/dL Abnormal 0.20-1.00 [facility] Internal Medicine Work Phone: Comment on above: Order Date: 05/03/16 Order Info: 0788-1 - *Hepatic Function PanelOrder Info: 90774-5 - *Lipid Profile CC PCPComments: 12 hours fasting, may have water.[facility] [address] [place], [address] Bilirubin.direct mass conc 0.22 mg/dL Normal 0.00-0.30 [facility] Work Phone: Comment on above: Order Date: 05/03/16 Order Info: 0788-1 - *Hepatic Function PanelOrder Info: 45601-7 - *Lipid Profile CC PCPComments: 12 hours fasting, may have water.[facility] [address] [place], [phone] Globulin mass conc (S) 3.3 g/dL Normal 2.3-3.5 [facility] Internal Medicine Work Phone: Comment on above: Order Date: 05/03/16 Order Info: 0788-1 - *Hepatic Function PanelOrder Info: 72538-0 - *Lipid Profile CC PCPComments: 12 hours fasting, may have water.[facility] [address] [place], [address] Hepatic function 2000 panel - Serum or Plasma 6.7 g/dL Normal 6.4-8.2 [facility] Internal Medicine Work Phone: Comment on above: Order Date: 05/03/16 Order Info: 0788-1 - *Hepatic Function PanelOrder Info: 49579-8 - *Lipid Profile CC PCPComments: 12 hours fasting, may have water.[facility] [address] [place], [place], [address] Hepatic function 2000 panel - Serum or Plasma 42 U/L Abnormal 45-117 Comprehe nsive Internal Medicine Work Phone: Comment on above: Order Date: 05/03/16 Order Info: 0788-1 - *Hepatic Function PanelOrder Info: 95569-2 - *Lipid Profile CC PCPComments: 12 hours fasting, may have water.[facility] [address] [place], [place], [address] Protein mass conc 6.7 g/dL Normal 6.4-8.2 Compreh ensive Internal Medicine Work Phone: Comment on above: Order Date: 05/03/16 Order Info: 0788-1 - *Hepatic Function PanelOrder Info: 13223-4 - *Lipid Profile CC PCPComments: 12 hours fasting, may have water.[facility] [address] [place], [place], [address] Lipid ProfileOrdered By: Florence tem Business Strategist on 04-22-2016 Cholesterol in HDL mass conc 42 mg/dL Normal [facility] Work Phone: Comment on above: The drugs N-Acetylcy steine and Metamizole may falsely deressthis assay. Reference Range HDL <40 mg/dL Low HDL Cholesterol HDL >or= 60 mg/dL High HDL Cholesterol Order Date: 04/18/16 Order Info: 0788-1 - *Hepatic Function PanelOrder Date: 04/18/16Order Info: 19707-7 - *Lipid Profile CC PCPComments: 12 hours fasting, may have water.[facility] [address] [place], [place], [address] Cholesterol in LDL mass conc 64 mg/dL Normal 0-130 [facility] Work Phone: Comment on above: Order Date: 04/18/16 Order Info: 0788-1 - *Hepatic Function PanelOrder Date: 04/18/16Order Info: 17119-7 - *Lipid Profile CC PCPComments: 12 hours fasting, may have water.[facility] [address] [place], [address] Cholesterol in VLDL mass conc 32 mg/dL Normal 5-40 [facility] Work Phone: Comment on above: Order Date: 04/18/16 Order Info: 0788-1 - *Hepatic Function PanelOrder Date: 04/18/16Order Info: 85165-5 - *Lipid Profile CC PCPComments: 12 hours fasting, may have water.[facility] [address] [place], [place], [address] Cholesterol mass conc 138 mg/dL Normal Com prehensive [facility] Medicine Work Phone: Comment on above: <200 mg/dL Desirable 200-240 mg/dL Borderline >240 mg/dL High Risk Order Date: 04/18/16 Order Info: 0788-1 - *Hepatic Function PanelOrder Date: 04/18/16Order Info: 29703-5 - *Lipid Profile CC PCPComments: 12 hours fasting, may have water.[facility] [address] [place], [place], [id number] Triglyceride mass conc 160 mg/dL Normal [facility] Work Phone: Comment on above: The drugs N-Acetylcy steine and Metamizole may falsely deressthis assay.Serum Triglycerides Reference Interval Normal <150 mg/dL Borderline high 150 - 199 mg/dL High 200 - 499 mg/dL Very High > or = 500 mg/dL Order Date: 04/18/16 Order Info: [id number] - *Hepatic Function PanelOrder Date: 04/18/16Order Info: [id number] - *Lipid Profile CC PCPComments: 12 hours fasting, may have water.[facility] [address] [place], [phone] Liver ProfileOrdered By: Florence tem Business Strategist on 04-22-2016 Albumin mass conc 3.8 g/dL Normal 3.4-5.0 Compreh ensive Internal Medicine Work Phone: Comment on above: Order Date: 04/18/16 Order Info: [id number] - *Hepatic Function PanelOrder Date: 04/18/16Order Info: [id number] - *Lipid Profile CC PCPComments: 12 hours fasting, may have water.[facility] [address] [place], [phone] ALP enzyme act/vol 42 U/L Abnormal 45-117 [facility] Work Phone: Comment on above: Order Date: 04/18/16 Order Info: [id number] - *Hepatic Function PanelOrder Date: 04/18/16Order Info: [id number] - *Lipid Profile CC PCPComments: 12 hours fasting, may have water.[facility] [address] [place], [address] ALT enzyme act/vol 30 U/L Normal 12-78 [facility] Internal [facility] Work Phone: Comment on above: Order Date: 04/18/16 Order Info: [id number] - *Hepatic Function PanelOrder Date: 04/18/16Order Info: [id number] - *Lipid Profile CC PCPComments: 12 hours fasting, may have water.[facility] [address] [place], [phone] AST enzyme act/vol 24 U/L Normal 15-37 [facility] Internal Medicine Work Phone: Comment on above: Order Date: 04/18/16 Order Info: [id number] - *Hepatic Function PanelOrder Date: 04/18/16Order Info: [id number] - *Lipid Profile CC PCPComments: 12 hours fasting, may have water.[facility] [address] [place], [address] Bilirubin mass conc 1.20 mg/dL Abnormal 0.20-1.00 [facility] Internal Medicine Work Phone: Comment on above: Order Date: 04/18/16 Order Info: [id number] - *Hepatic Function PanelOrder Date: 04/18/16Order Info: [id number] - *Lipid Profile CC PCPComments: 12 hours fasting, may have water.[facility] [address] [place], [address] Bilirubin.direct mass conc 0.21 mg/dL Normal 0.00-0.30 [facility] Work Phone: Comment on above: Order Date: 04/18/16 Order Info: [id number] - *Hepatic Function PanelOrder Date: 04/18/16Order Info: [id number] - *Lipid Profile CC PCPComments: 12 hours fasting, may have water.[facility] [address] [place], [address] Globulin mass conc (S) 3.4 g/dL Normal 2.3-3.5 Co [facility] Internal Medicine Work Phone: Comment on above: Order Date: 04/18/16 Order Info: [id number] - *Hepatic Function PanelOrder Date: 04/18/16Order Info: [id number] - *Lipid Profile CC PCPComments: 12 hours fasting, may have water.[facility] [address] [place], [place], [address] Hepatic function 2000 panel - Serum or Plasma 7.2 g/dL Normal 6.4-8.2 [facility] Work Phone: Comment on above: Order Date: 04/18/16 Order Info: [id number] - *Hepatic Function PanelOrder Date: 04/18/16Order Info: [id number] - *Lipid Profile CC PCPComments: 12 hours fasting, may have water.[facility] [address] [place], [place], [address] Hepatic function 2000 panel - Serum or Plasma 42 U/L Abnormal 45-117 Comprehe nsive Internal Medicine Work Phone: Comment on above: Order Date: 04/18/16 Order Info: [id number] - *Hepatic Function PanelOrder Date: 04/18/16Order Info: [id number] - *Lipid Profile CC PCPComments: 12 hours fasting, may have water.[facility] [address] [place], [place], [phone] Protein mass conc 7.2 g/dL Normal 6.4-8.2 Compreh ensive Internal Medicine Work Phone: Comment on above: Order Date: 04/18/16 Order Info: [id number] - *Hepatic Function PanelOrder Date: 04/18/16Order Info: [id number] - *Lipid Profile CC PCPComments: 12 hours fasting, may have water.[facility] [address] [place], [place], [phone] PSA,Total - Annual ScreenOrd ered By: Hand Fabric Cutter on 11-10-2015 Prostate specific Ag mass conc 1.74 ng/mL Normal 0.00-4.00 [facility] Work Phone: Comment on above: This test was perfor med using the TPSA assay method for [employer]ic[employer] chemistry system. Values obtained with differentassay methods cannot be used interchangably.When changing PSA assays in the course of monitoring apatient, additional sequential testing should be carriedout to confirm baseline values. [facility] [address] [place], [place], [phone] CBC W/Diff, AutomatedOrdered By: Hand Fabric Cutter on 10-18-2015 Absolute Neut 4.1 {X10_3/uL} Normal 2.0-7.7 Compreh ensive Internal Medicine Work Phone: Comment on above: [facility] [address] [place], [place], [phone] Basophils/100 WBC (Bld) 0.4 % Normal 0-1 C omprehensive Internal Medicine Work Phone: Comment on above: [facility] [address] [place], [address] Eosinophils/100 WBC (Bld) 6.1 % Abnormal 0-5 [facility] Work Phone: Comment on above: [facility] [address] [place], [address] Erythrocyte distribution width Ratio (RBC) 13.9 % Normal 11.6-14.6 [facility] Work Phone: Comment on above: [facility] [address] [place], [place], [phone] Hematocrit Volume Fraction (Bld) 46.6 % Normal 40-54 [facility] Work Phone: Comment on above: [facility] [address] [place], [address] Hemoglobin mass conc (Bld) 16.0 g/dL Normal 13.0-16.5 [facility] Work Phone: Comment on above: [facility] [address] [place], [address] IM GRAN % 0.100 % Normal 0.0-0.9 [facility] Work Phone: Comment on above: IG% - Immature Granu locytes (promyelocytes, myelocytes andmetamyelocytes) > 1% indicates that a LEFT SHIFT is Present. [facility] [address] [place], [address] Lymphocytes #/vol (Bld) 2.45 {X10_3/ul} Normal 0.83-4. 51 [facility] Work Phone: Comment on above: [facility] [address] [place], [address] Lymphocytes/100 WBC (Bld) 30.9 % Normal 19-41 [facility] Work Phone: Comment on above: [facility] [address] [place], [address] MCH Entitic mass (RBC) 32.3 pg Abnormal 27.0-32.0 Co [facility] Internal Medicine Work Phone: Comment on above: [facility] [address] [place], [place], [address] MCHC mass conc (RBC) 34.3 {g/gl} Normal 32-36 Com prehensive Internal Medicine Work Phone: Comment on above: [facility] [address] [place], [address] MCV Entitic volume (RBC) 94.1 fL Abnormal 80-94 [facility] Work Phone: Comment on above: [facility] [address] [place], [address] Monocytes/100 WBC (Bld) 10.2 % Abnormal 0-10 C omprehensive Internal Medicine Work Phone: Comment on above: [facility] [address] [place], [address] Neutrophils/100 WBC (Bld) 52.3 % Normal 47-70 [facility] Work Phone: Comment on above: [facility] [address] [place], [address] Platelet mean volume Entitic volume (Bld) 10.7 fL Normal 6.2-12.0 Comprehensi Internal Medicine Work Phone: Comment on above: [facility] [address] [place], [address] Platelets #/vol (Bld) 212 10*3/uL Normal 150-450 [facility] Work Phone: Comment on above: [facility] [address] [place], [address] RBC #/vol (Bld) 4.95 {M/mm3} Normal 4.6-6.2 Compreh ensive Internal Medicine Work Phone: Comment on above: [facility] [address] [place], [address] RDW SD 45.8 fL Abnormal 35.1-43.9 [facility] Work Phone: Comment on above: [facility] [address] [place], [place], [address] WBC #/vol (Bld) 7.9 10*3/uL Normal 4.4-11.0 Comprehe nsive Internal Medicine Work Phone: Comment on above: [facility] [address] [place], [place], [phone] Comprehensive Metabolic Prof ilOrdered By: Hand Fabric Cutter on 10-18-2015 Comprehensive metabolic 2000 panel 4.0 mmol/L Normal 3.5-5.1 [facility] Work Phone: Comment on above: [facility] [address] [place], [place], [phone] Comprehensive metabolic 2000 panel 3.9 g/dL Normal 3.4-5.0 [facility] Work Phone: Comment on above: [facility] [address] [place], [place], [phone] Comprehensive metabolic 2000 panel 7.0 g/dL Normal 6.4-8.2 [facility] Work Phone: Comment on above: [facility] [address] [place], [place], [address] Comprehensive metabolic 2000 panel 140 mmol/L Normal 136-145 [facility] Work Phone: Comment on above: [facility] [address] [place], [place], [address] Comprehensive metabolic 2000 panel 1.80 mg/dL Abnormal 0.20-1.00 [facility] Work Phone: Comment on above: [facility] [address] [place], [place], [phone] Comprehensive metabolic 2000 panel 29 U/L Normal 12-78 [facility] Work Phone: Comment on above: [facility] [address] [place], [place], [address] Comprehensive metabolic 2000 panel 3.1 g/dL Normal 2.3-3.5 [facility] Work Phone: Comment on above: [facility] [address] [place], [place], [phone] Comprehensive metabolic 2000 panel 16.2 {RATIO} Normal 10-20 [facility] Work Phone: Comment on above: [facility] [address] [place], [place], [address] Comprehensive metabolic 2000 panel 44 U/L Abnormal 50-136 [facility] Work Phone: Comment on above: [facility] [address] [place], [place], [phone] Comprehensive metabolic 2000 panel 89 mL/min Normal [facility] Work Phone: Comment on above: GFR Calc [facility] [address] [place], [place], [phone] Comprehensive metabolic 2000 panel 74 mL/min Normal [facility] Work Phone: Comment on above: Non- GFR Calc [facility] [address] [place], [place], [phone] Comprehensive metabolic 2000 panel 1.05 mg/dL Normal 0.70-1.30 [facility] Work Phone: Comment on above: The validity of the calculated GFR AND GFRAA in patients over70 years has not been determined. Clinical correlation isessential. [facility] [address] [place], [place], [phone] Comprehensive metabolic 2000 panel 27 U/L Normal 15-37 [facility] Work Phone: Comment on above: [facility] [address] [place], [place], [address] Comprehensive metabolic 2000 panel 17 mg/dL Normal 7-18 [facility] Work Phone: Comment on above: [facility] [address] [place], [place], [address] Comprehensive metabolic 2000 panel 86 mg/dL Normal 70-110 [facility] Work Phone: Comment on above: [facility] [address] [place], [place], [address] Comprehensive metabolic 2000 panel 26.0 mmol/L Normal 21.0-32.0 [facility] Work Phone: Comment on above: [facility] [address] [place], [place], [phone] Comprehensive metabolic 2000 panel 5 1 Normal 5-15 [facility] Work Phone: Comment on above: [facility] [address] [place], [place], [address] Comprehensive metabolic 2000 panel 1.3 {RATIO} Normal 0.9-2.4 [facility] Work Phone: Comment on above: [facility] [address] [place], [place], [address] Comprehensive metabolic 2000 panel 8.8 mg/dL Normal 8.5-10.1 [facility] Work Phone: Comment on above: [facility] [address] [place], [place], [address] Comprehensive metabolic 2000 panel 109 mmol/L Abnormal 98-107 [facility] Work Phone: Comment on above: [facility] [address] [place], [place], [id number] Lipid ProfileOrdered By: Florence tem Business Strategist on 10-18-2015 Cholesterol in HDL mass conc 38 mg/dL Abnormal [facility] Work Phone: Comment on above: The drugs N-Acetylcy steine and Metamizole may falsely deressthis assay. Reference Range HDL <40 mg/dL Low HDL Cholesterol HDL >or= 60 mg/dL High HDL Cholesterol Order Date: 10/16/15 OV Order #: [id number] Bethesda Butler Hospital [address] [place], [address] Cholesterol in LDL mass conc 64 mg/dL Normal 0-130 [facility] Work Phone: Comment on above: Order Date: 10/16/15 OV Order #: [id number] Bethesda [facility] Hospital [address] [place], [place], [address] Cholesterol in VLDL mass conc 28 mg/dL Normal 5-40 [facility] Work Phone: Comment on above: Order Date: 10/16/15 OV Order #: [id number] Bethesda Butler Hospital [address] [place], [place], [address] Cholesterol mass conc 130 mg/dL Normal Com prehensive Internal Medicine Work Phone: Comment on above: <200 mg/dL Desirable 200-240 mg/dL Borderline >240 mg/dL High Risk Order Date: 10/16/15 OV Order #: [id number] Bethesda Butler Hospital [address] [place], [place], [address] Triglyceride mass conc 139 mg/dL Normal Co mprehensive Internal Medicine Work Phone: Comment on above: The drugs N-Acetylcy steine and Metamizole may falsely deressthis assay.Serum Triglycerides Reference Interval Normal <150 mg/dL Borderline high 150 - 199 mg/dL High 200 - 499 mg/dL Very High > or = 500 mg/dL Order Date: 10/16/15 OV Order #: [id number] Bethesda Butler Hospital [address] [place], [place], [address] Liver ProfileOrdered By: Florence tem Business Strategist on 10-18-2015 Albumin mass conc 3.9 g/dL Normal 3.4-5.0 Compreh ensive Internal Medicine Work Phone: Comment on above: Order Date: 10/16/15 OV Order #: [id number] Bethesda Butler Hospital [address] [place], [place], [address] ALP enzyme act/vol 46 U/L Abnormal 50-136 [facility] Internal Medicine Work Phone: Comment on above: Order Date: 10/16/15 OV Order #: [id number] Bethesda Butler Hospital [address] [place], [place], [phone] ALT enzyme act/vol 28 U/L Normal 12-78 [facility] Internal Medicine Work Phone: Comment on above: Order Date: 10/16/15 OV Order #: [id number] [place] [address] [place], [place], [address] AST enzyme act/vol 27 U/L Normal 15-37 [facility] Internal Medicine Work Phone: Comment on above: Order Date: 10/16/15 OV Order #: [id number] [place] [address] [place], [place], [address] Bilirubin mass conc 1.80 mg/dL Abnormal 0.20-1.00 [facility] Internal Medicine Work Phone: Comment on above: Order Date: 10/16/15 OV Order #: [id number] Bethesda Butler Hospital [address] [place], [place], [address] Bilirubin.direct mass conc 0.34 mg/dL Abnormal 0.00-0.30 [facility] Internal Medicine Work Phone: Comment on above: Order Date: 10/16/15 OV Order #: [id number] [place] [address] [place], [place], [address] Globulin mass conc (S) 3.3 g/dL Normal 2.3-3.5 Co [facility] Internal Medicine Work Phone: Comment on above: Order Date: 10/16/15 OV Order #: [id number] Bethesda Butler Hospital [address] [place], [address] Hepatic function 2000 panel - Serum or Plasma 46 U/L Abnormal 50-136 Comprehe nsive Internal Medicine Work Phone: Comment on above: Order Date: 10/16/15 OV Order #: [id number] Bethesda Butler Hospital [address] [place], [address] Hepatic function 2000 panel - Serum or Plasma 7.2 g/dL Normal 6.4-8.2 Comprehe nsive Internal Medicine Work Phone: Comment on above: Order Date: 10/16/15 OV Order #: [id number] Bethesda Butler Hospital [address] [place], [address] Protein mass conc 7.2 g/dL Normal 6.4-8.2 Compreh ensive Internal Medicine Work Phone: Comment on above: Order Date: 10/16/15 OV Order #: [id number] Bethesda Butler Hospital [address] [place], [address] MicroalbOrdered By: Theodore palma on 10-18-2015 Creatinine mass conc 5.9 {mg/g_CRE} Normal [facility] Work Phone: Comment on above: [facility] [address] [place], [address] Creatinine mass conc 134.00 mg/dL Normal Co mprehensive Internal Medicine Work Phone: Comment on above: [facility] [address] [place], [address] Microalb 7.9 mg/L Normal [facility] Work Phone: Comment on above: [facility] [address] [place], [address] Thyroid Stim Hormone (TSH)Or dered By: Hand Fabric Cutter on 10-18-2015 Thyrotropin Qn 2.51 {uIU/mL} Normal 0.358-3.74 Compreh ensive Internal Medicine Work Phone: Comment on above: [facility] [address] [place], [place], [phone] Urinalysis, CompleteOrdered By: Hand Fabric Cutter on 10-18-2015 Protein mass conc (U) Negative Normal Com prehensive Internal Medicine Work Phone: Comment on above: How was Urine Obtain ed? [facility] [address] [place], [address] RBC #/vol (U) 0 SEEN Normal 0-5 Comprehensi ve Internal Medicine Work Phone: Comment on above: How was Urine Obtain ed? [facility] [address] [place], [place], [phone] Urinalysis complete panel - Urine Clear Normal [facility] Work Phone: Comment on above: How was Urine Obtain ed? [facility] [address] [place], [place], [id number] Urinalysis complete panel - Urine Normal Normal [facility] Work Phone: Comment on above: How was Urine Obtain ed? [facility] [address] [place], [place], [phone] Urinalysis complete panel - Urine 0 SEEN Normal 0-5 [facility] Work Phone: Comment on above: How was Urine Obtain ed? [facility] [address] [place], [place], [phone] Urinalysis complete panel - Urine 0-5 SEEN Normal 0-5 [facility] Work Phone: Comment on above: How was Urine Obtain ed? [facility] [address] [place], [address] Urinalysis complete panel - Urine Negative Normal [facility] Work Phone: Comment on above: How was Urine Obtain ed? [facility] [address] [place], [address] Urinalysis complete panel - Urine Yellow Normal [facility] Work Phone: Comment on above: How was Urine Obtain ed? [facility] [address] [place], [address] Urinalysis complete panel - Urine 5.0 1 Normal 5.0 - 8.0 [facility] Work Phone: Comment on above: How was Urine Obtain ed? [facility] [address] [place], [phone] Urinalysis complete panel - Urine 1.020 1 Normal 1.002-1.03 0 [facility] Work Phone: Comment on above: How was Urine Obtain ed? [facility] [address] [place], [id number] Lipid ProfileOrdered By: [facility] Business Strategist on 04-17-2015 Cholesterol in HDL mass conc 40 mg/dL Normal [facility] Work Phone: Comment on above: Reference Range HDL <40 mg/dL Low HDL Cholesterol HDL >or= 60 mg/dL High HDL Cholesterol [facility] [address] [place], [address] Cholesterol in LDL mass conc 67 mg/dL Normal 0-130 [facility] Work Phone: Comment on above: [facility] [address] [place], [address] Cholesterol in VLDL mass conc 27 mg/dL Normal 5-40 [facility] Work Phone: Comment on above: [facility] [address] [place], [phone] Cholesterol mass conc 134 mg/dL Normal Com prehensive Internal Medicine Work Phone: Comment on above: <200 mg/dL Desirable 200-240 mg/dL Borderline >240 mg/dL High Risk [facility] [address] [place], [place], [address] Triglyceride mass conc 134 mg/dL Normal [facility] Work Phone: Comment on above: Serum Triglycerides Reference Interval Normal <150 mg/dL Borderline high 150 - 199 mg/dL High 200 - 499 mg/dL Very High > or = 500 mg/dL [facility] [address] [place], [place], [phone] Liver ProfileOrdered By: Florence tem Business Strategist on 04-17-2015 Albumin mass conc 3.7 g/dL Normal 3.4-5.[address] [facility] Internal [facility] Work Phone: Comment on above: [facility] [address] [place], [place], [address] ALP enzyme act/vol 40 U/L Abnormal 50-136 Compre [facility] Internal Medicine Work Phone: Comment on above: [facility] [address] [place], [place], [address] ALT enzyme act/vol 32 U/L Normal 12-78 [facility] Internal Medicine Work Phone: Comment on above: [facility] [address] [place], [place], [address] AST enzyme act/vol 23 U/L Normal 15-37 [facility] Internal [facility] Work Phone: Comment on above: [facility] [address] [place], [place], [phone] Bilirubin mass conc 1.20 mg/dL Abnormal 0.20-1.00 Compr ensive Internal Medicine Work Phone: Comment on above: [facility] [address] [place], [place], [address] Bilirubin.direct mass conc 0.24 mg/dL Normal 0.00-0.30 [facility] Work Phone: Comment on above: [facility] [address] [place], [address] Globulin mass conc (S) 3.3 g/dL Normal 2.3-3.5 Co mprehensive Internal Medicine Work Phone: Comment on above: [facility] [address] [place], [address] Hepatic function 2000 panel - Serum or Plasma 40 U/L Abnormal 50-136 Comprehe nsive Internal Medicine Work Phone: Comment on above: [facility] [address] [place], [address] Hepatic function 2000 panel - Serum or Plasma 7.0 g/dL Normal 6.4-8.2 Comprehe nsive Internal Medicine Work Phone: Comment on above: [facility] [address] [place], [address] Protein mass conc 7.0 g/dL Normal 6.4-8.2 Compreh ensive Internal Medicine Work Phone: Comment on above: [facility] [address] [place], [address] CBC W/Diff, AutomatedOrdered By: Hand Fabric Cutter on 11-04-2014 Absolute Neut 3.8 {X10_3/uL} Normal 2.0-7.7 Compreh ensive Internal Medicine Work Phone: Comment on above: Test performed at:[facility] [address] [place] [address] Basophils/100 WBC (Bld) 0.3 % Normal 0-1 C omprehensive Internal Medicine Work Phone: Comment on above: Test performed at:[facility] [address] [place] [address] Eosinophils/100 WBC (Bld) 5.9 % Abnormal 0-5 [facility] Work Phone: Comment on above: Test performed at:[facility] [address] [address] Erythrocyte distribution width Ratio (RBC) 13.7 % Normal 11.6-14.6 [facility] Work Phone: Comment on above: Test performed at:[facility] [address] [place] [address] Hematocrit Volume Fraction (Bld) 46.0 % Normal 40-54 [facility] Work Phone: Comment on above: Test performed at:[facility] [address] [place] [address] Hemoglobin mass conc (Bld) 15.6 g/dL Normal 13.0-16.5 [facility] Work Phone: Comment on above: Test performed at:[facility] [address] [place] [address] IM GRAN % 0.100 % Normal 0.0-0.9 [facility] Work Phone: Comment on above: IG% - Immature Granu locytes (promyelocytes, myelocytes andmetamyelocytes) > 1% indicates that a LEFT SHIFT is Present. Test performed at:[facility] [address] [place] [address] Lymphocytes #/vol (Bld) 2.10 {X10_3/ul} Normal 0.83-4. 51 [facility] Work Phone: Comment on above: Test performed at:[facility] [address] [place] [address] Lymphocytes/100 WBC (Bld) 29.7 % Normal 19-41 [facility] Work Phone: Comment on above: Test performed at:[facility] [address] [place] [address] MCH Entitic mass (RBC) 32.1 pg Abnormal 27.0-32.0 [facility] Work Phone: Comment on above: Test performed at:[facility] [address] [place] [address] MCHC mass conc (RBC) 33.9 {g/gl} Normal 32-36 Com prehensive Internal Medicine Work Phone: Comment on above: Test performed at:[facility] [address] [place] [address] MCV Entitic volume (RBC) 94.7 fL Abnormal 80-94 [facility] Work Phone: Comment on above: Test performed at:[facility] [address] [place] [address] Monocytes/100 WBC (Bld) 10.7 % Abnormal 0-10 [facility] Internal [facility] Work Phone: Comment on above: Test performed at:[facility] [address] [place] [address] Neutrophils/100 WBC (Bld) 53.3 % Normal 47-70 [facility] Work Phone: Comment on above: Test performed at:[facility] [address] [place] [address] Platelet mean volume Entitic volume (Bld) 10.1 fL Normal 6.2-12.0 Comprehensi ve Internal Medicine Work Phone: Comment on above: Test performed at:[facility] [address] [place] [address] Platelets #/vol (Bld) 219 10*3/uL Normal 150-450 [facility] Work Phone: Comment on above: Test performed at:[facility] [address] [place] [address] RBC #/vol (Bld) 4.86 {M/mm3} Normal 4.6-6.2 Compreh ensive Internal Medicine Work Phone: Comment on above: Test performed at:[facility] [address] [place] [address] RDW SD 46.1 fL Abnormal 35.1-43.9 [facility] Work Phone: Comment on above: Test performed at:[facility] [address] [place] [address] WBC #/vol (Bld) 7.1 10*3/uL Normal 4.4-11.0 Comprehe nsive Internal Medicine Work Phone: Comment on above: Test performed at:[facility] [address] [place] [address] Comprehensive Metabolic Prof ilOrdered By: Hand Fabric Cutter on 11-04-2014 Comprehensive metabolic 2000 panel 16 mg/dL Normal 7-18 [facility] Work Phone: Comment on above: Comments: UACTest pe rformed at:[facility] [address] [place] [address] Comprehensive metabolic 2000 panel 3.0 g/dL Normal 2.3-3.5 [facility] Work Phone: Comment on above: Comments: UACTest pe rformed at:[facility] [address] [place] [address] Comprehensive metabolic 2000 panel 1.2 {RATIO} Normal 0.9-2.4 [facility] Work Phone: Comment on above: Comments: UACTest pe rformed at:[facility] [address] [place] [address] Comprehensive metabolic 2000 panel 3.7 g/dL Normal 3.4-5.0 [facility] Work Phone: Comment on above: Comments: UACTest pe rformed at:[facility] [address] [place] [address] Comprehensive metabolic 2000 panel 8.2 mg/dL Abnormal 8.5-10.1 [facility] Work Phone: Comment on above: Comments: UACTest pe rformed at:[facility] [address] [place] [address] Comprehensive metabolic 2000 panel 6.7 g/dL Normal 6.4-8.2 [facility] Work Phone: Comment on above: Comments: UACTest pe rformed at:[facility] [address] [place], [place] [id number] Comprehensive metabolic 2000 panel 17.0 {RATIO} Normal 10-20 [facility] Work Phone: Comment on above: Comments: UACTest pe rformed at:[facility] [address] [place] [address] Comprehensive metabolic 2000 panel 0.94 mg/dL Normal 0.70-1.30 [facility] Work Phone: Comment on above: Please note revised CREATININE reference range ncigygqyk79/22/2015. Comments: UACTest pe rformed at:[facility] [address] [place] [address] Comprehensive metabolic 2000 panel 25 U/L Normal 15-37 [facility] Work Phone: Comment on above: Comments: UACTest pe rformed at:[facility] [address] [place] [address] Comprehensive metabolic 2000 panel 38 U/L Abnormal 50-136 [facility] Work Phone: Comment on above: Comments: UACTest pe rformed at:[facility] [address] [place] [address] Comprehensive metabolic 2000 panel 31 U/L Normal 12-78 [facility] Work Phone: Comment on above: Comments: UACTest pe rformed at:[facility] [address] [place], [place] [id number] Comprehensive metabolic 2000 panel 1.40 mg/dL Abnormal 0.20-1.00 [facility] Work Phone: Comment on above: Comments: UACTest pe rformed at:[facility] [address] [place], [place] [address] Comprehensive metabolic 2000 panel 140 mmol/L Normal 136-145 [facility] Work Phone: Comment on above: Comments: UACTest pe rformed at:[facility] [address] [place] [address] Comprehensive metabolic 2000 panel 4.4 mmol/L Normal 3.5-5.1 [facility] Work Phone: Comment on above: Comments: UACTest pe rformed at:[facility] [address] [place], [place] [id number] Comprehensive metabolic 2000 panel 108 mmol/L Abnormal 98-107 [facility] Work Phone: Comment on above: Comments: UACTest pe rformed at:[facility] [address] [place] [address] Comprehensive metabolic 2000 panel 26.0 mmol/L Normal 21.0-32.0 [facility] Work Phone: Comment on above: Comments: UACTest pe rformed at:[facility] [address] [place], [place] [address] Comprehensive metabolic 2000 panel 6 1 Normal 5-15 [facility] Work Phone: Comment on above: Comments: UACTest pe rformed at:[facility] [address] [place] [address] Comprehensive metabolic 2000 panel 87 mg/dL Normal 70-110 [facility] Work Phone: Comment on above: Comments: UACTest pe rformed at:[facility] [address] [place], [place] [id number] PSA,Total - Annual ScreenOrd ered By: Hand Fabric Cutter on 11-04-2014 Prostate specific Ag mass conc 1.77 ng/mL Normal 0.00-4.00 [facility] Work Phone: Comment on above: This test was perfor med using the TPSA assay method for the[employer] chemistry system. Values obtained with differentassay methods cannot be used interchangably.When changing PSA assays in the course of monitoring apatient, additional sequential testing should be carriedout to confirm baseline values. Comments: UACTest pe rformed at:[facility] [address] [place] [place] [address] Thyroid Stim Hormone (TSH)Or dered By: Hand Fabric Cutter on 11-04-2014 Thyrotropin Qn 1.91 {uIU/mL} Normal 0.358-3.[address] [facility] Work Phone: Comment on above: Comments: UACTest pe rformed at:[facility] [address] [place] [address] Lipid ProfileOrdered By: Florence oliver Business Strategist on 10-04-2014 Cholesterol in HDL mass conc 37 mg/dL Abnormal [facility] Work Phone: Comment on above: Reference Range HDL <40 mg/dL Low HDL Cholesterol HDL >or= 60 mg/dL High HDL Cholesterol Test performed at:[facility] [address] [place] [address] Cholesterol in LDL mass conc 56 mg/dL Normal 0-130 [facility] Work Phone: Comment on above: Test performed at:[facility] [address] [place] [address] Cholesterol in VLDL mass conc 19 mg/dL Normal 5-40 [facility] Work Phone: Comment on above: Test performed at:[facility] [address] [facility] [place] [address] Cholesterol mass conc 112 mg/dL Normal Com prehensive Internal Medicine Work Phone: Comment on above: <200 mg/dL Desirable 200-240 mg/dL Borderline >240 mg/dL High Risk Test performed at:[facility] [address] [place] [address] Triglyceride mass conc 96 mg/dL Normal Co [facility] Internal Medicine Work Phone: Comment on above: Serum Triglycerides Reference Interval Normal <150 mg/dL Borderline high 150 - 199 mg/dL High 200 - 499 mg/dL Very High > or = 500 mg/dL Test performed at:[facility] [address] [place] [address] Liver ProfileOrdered By: Florence tem Business Strategist on 10-04-2014 Albumin mass conc 3.6 g/dL Normal 3.4-5.0 [facility] Internal Medicine Work Phone: Comment on above: Test performed at:[facility] [address] [place] [address] ALP enzyme act/vol 41 U/L Abnormal 50-136 [facility] Internal Medicine Work Phone: Comment on above: Test performed at:[facility] [address] [place] [address] ALT enzyme act/vol 31 U/L Normal 12-78 [facility] Internal Medicine Work Phone: Comment on above: Test performed at:[facility] [address] [place] [address] AST enzyme act/vol 33 U/L Normal 15-37 [facility] Internal Medicine Work Phone: Comment on above: Test performed at:[facility] [address] [place] [address] Bilirubin mass conc 0.90 mg/dL Normal 0.20-1.00 [facility] Internal Medicine Work Phone: Comment on above: Test performed at:[facility] [address] [place] [address] Bilirubin.direct mass conc 0.21 mg/dL Normal 0.00-0.30 [facility] Work Phone: Comment on above: Test performed at:[facility] [address] [place] [address] Globulin mass conc (S) 3.1 g/dL Normal 2.3-3.5 Co mprehensive Internal Medicine Work Phone: Comment on above: Test performed at:[facility] [address] [place] [address] Hepatic function 2000 panel - Serum or Plasma 41 U/L Abnormal 50-136 Comprehe nsive Internal Medicine Work Phone: Comment on above: Test performed at:[facility] [address] [place] [address] Hepatic function 2000 panel - Serum or Plasma 6.7 g/dL Normal 6.4-8.2 Comprehe nsive Internal Medicine Work Phone: Comment on above: Test performed at:[facility] [address] [place] [address] Protein mass conc 6.7 g/dL Normal 6.4-8.2 Compreh ensive Internal Medicine Work Phone: Comment on above: Test performed at:[facility] [address] [place] [address] Lipid ProfileOrdered By: Florence tem Business Strategist on 04-08-2014 Cholesterol in HDL mass conc 40 mg/dL Normal [facility] Work Phone: Comment on above: Reference Range HDL <40 mg/dL Low HDL Cholesterol HDL >or= 60 mg/dL High HDL Cholesterol Test performed at:[facility] [address] [place] [address] Cholesterol in LDL mass conc 62 mg/dL Normal 0-130 [facility] Work Phone: Comment on above: Test performed at:[facility] [address] [place] [address] Cholesterol in VLDL mass conc 18 mg/dL Normal 5-40 [facility] Work Phone: Comment on above: Test performed at:[facility] [address] [place] [address] Cholesterol mass conc 120 mg/dL Normal Com prehensive Internal Medicine Work Phone: Comment on above: <200 mg/dL Desirable 200-240 mg/dL Borderline >240 mg/dL High Risk Test performed at:[facility] [address] [place] [address] Triglyceride mass conc 91 mg/dL Normal 0-199 Co mprehensive Internal Medicine Work Phone: Comment on above: Serum Triglycerides Reference Interval Normal <150 mg/dL Borderline high 150 - 199 mg/dL High 200 - 499 mg/dL Very High > or = 500 mg/dL Test performed at:[facility] [address] [place] [address] Liver ProfileOrdered By: Florence tem Business Strategist on 04-08-2014 Albumin mass conc 4.0 g/dL Normal 3.4-5.[address] [facility] Work Phone: Comment on above: Test performed at:[facility] [address] [place] [address] ALT enzyme act/vol 34 U/L Normal 12-78 [facility] Work Phone: Comment on above: Test performed at:[facility] [address] [place] [address] AST enzyme act/vol 26 U/L Normal 15-37 Compre [facility] Internal Medicine Work Phone: Comment on above: Test performed at:[facility] [address] [place] [address] Bilirubin mass conc 1.30 mg/dL Normal 0.00-4.00 Compr ensive Internal Medicine Work Phone: Comment on above: Test performed at:[facility] [address] [place] [address] Bilirubin.direct mass conc 0.28 mg/dL Normal 0.00-0.30 [facility] Work Phone: Comment on above: Test performed at:[facility] [address] [place] [address] Globulin mass conc (S) 2.9 g/dL Normal 2.7-4.2 Co mprehensive Internal Medicine Work Phone: Comment on above: Test performed at:[facility] [address] [place] [address] Protein mass conc 6.9 g/dL Normal 6.4-8.2 Compreh ensive Internal Medicine Work Phone: Comment on above: Test performed at:[facility] [address] [place] [address] Liver Profile 45 U/L Abnormal 50-136 Comprehensi ve Internal Medicine Work Phone: Comment on above: Test performed at:[facility] [address] [place] [address] Liver Profile 6.9 g/dL Normal 6.4-8.2 Comprehensi ve Internal Medicine Work Phone: Comment on above: Test performed at:[facility] [address] [place] [address] Liver Profile 2.9 g/dL Normal 2.7-4.2 Comprehensi ve Internal Medicine Work Phone: Comment on above: Test performed at:[facility] [address] [place] [address] HERNOrdered By: System Manag er on 01-21-2014 IRENA Normal [facility] Work Phone: Comment on above: Patient: JULIA ALMEIDA : 1945 (68/M)Acct Num: [id number] Phys: Froy LADD,Cristian Num: [id number] Loc: SDCSpecimen: [id number] Received: 01/21/14 - 1400Spec Type: HerniaTISSUESTISSUES:GROSS DESCRIPTIONReceived is one container labeled with the patient name and designated herniasac. The specimen consists of a piece of fibromembranous tissue measuring 3 x1 x 0.5 cm. Sections do not reveal any mass lesions. The entire specimen issubmitted in one cassette. / SJ: 01/21/14 TC:5CPT: [id number]: Inguinal hernia with mesh, rightPRE-OPERATIVE DIAGNOSIS: Symptomatic right inguinal herniaTISSUE SUBMITTED: Hernia sacMICROSCOPIC DIAGNOSISSoft tissue of right inguinal region, excision:Consistent with hernia sac.AM: 01/24/14Signed Tray [facility] 01/24/14 BMPOrdered By: System Manage r on 01-14-2014 Calcium mass conc 8.6 mg/dL Normal 8.5-10.1 Compreh ensive Internal Medicine Work Phone: Chloride molar conc 108 mmol/L Abnormal 98-107 Compr ehensive Internal Medicine Work Phone: CO2 molar conc 27.0 mmol/L Normal 21.0-32.0 Comprehen sive Internal Medicine Work Phone: Creatinine mass conc 1.0 mg/dL Normal 0.8-1.3 Comp rehensive Internal Medicine Work Phone: GFR/1.73 sq M predicted among non-blacks MDRD vol rate/area (S/P/Bld) 79 mL/min/{1.73_m2} Normal Comp rehensive Internal Medicine Work Phone: Glucose mass conc 90 mg/dL Normal 70-110 Compreh ensive Internal Medicine Work Phone: Potassium molar conc 4.5 mmol/L Normal 3.5-5.1 Comp rehensive Internal Medicine Work Phone: Sodium molar conc 142 mmol/L Normal 136-145 Compreh ensive Internal Medicine Work Phone: Urea nitrogen mass conc 16 mg/dL Normal 7-18 C omprehensive Internal Medicine Work Phone: BMP 16.0 {RATIO} Normal 10-20 Comprehensiv e Internal Medicine Work Phone: BMP 96 mL/min Normal [facility] Work Phone: BMP 70.97 ml/min Normal Comprehensiv e Internal Medicine Work Phone: BMP 7 1 Normal 5-15 [facility] Work Phone: CBCOrdered By: System Manage r on 01-14-2014 Erythrocyte distribution width Ratio (RBC) 13.4 % Normal 11.6-14.6 [facility] Work Phone: Hematocrit Volume Fraction (Bld) 46.9 % Normal 40-54 [facility] Work Phone: Hemoglobin mass conc (Bld) 15.8 g/dL Normal 13.0-16.5 [facility] Work Phone: MCH Entitic mass (RBC) 32.1 pg Abnormal 27.0-32.0 Co mprehensive Internal Medicine Work Phone: MCHC mass conc (RBC) 33.7 {g/gl} Normal 32-36 Com prehensive Internal Medicine Work Phone: MCV Entitic volume (RBC) 95.3 fL Abnormal 80-94 [facility] Work Phone: Platelet mean volume Entitic volume (Bld) 9.9 fL Normal 6.2-12.0 Comprehensi ve Internal Medicine Work Phone: Platelets #/vol (Bld) 212 10*3/uL Normal 150-450 Co mprehensive Internal Medicine Work Phone: RBC #/vol (Bld) 4.92 {M/mm3} Normal 4.6-6.2 Compreh ensive Internal Medicine Work Phone: WBC #/vol (Bld) 9.2 10*3/uL Normal 4.4-11.0 Comprehe nsive Internal Medicine Work Phone: CBC 47.1 fL Abnormal 35.1-43.9 [facility] Work Phone: MGOrdered By: Hand Fabric Cutter on 11-02-2013 Magnesium mass conc 2.1 mg/dL Normal 1.8-2.4 [facility] Internal Medicine Work Phone: MG 2.1 mg/dL Normal 1.8-2.4 [facility] Internal Medicine Work Phone: CMPOrdered By: System Manage r on 07-06-2013 Albumin mass conc 3.8 g/dL Normal 3.4-5.0 [facility] Internal Medicine Work Phone: Comment on above: will review at next appt...non-urgent Albumin/Globulin mass ratio 1.3 {RATIO} Normal 0.9-2.4 [facility] Internal Medicine Work Phone: Comment on above: will review at next appt...non-urgent ALP enzyme act/vol 41 U/L Abnormal 45-117 [facility] Internal Medicine Work Phone: Comment on above: will review at next appt...non-urgent ALT enzyme act/vol 38 U/L Normal 12-78 [facility] Internal Medicine Work Phone: Comment on above: will review at next appt...non-urgent AST enzyme act/vol 34 U/L Normal 15-37 [facility] Internal Medicine Work Phone: Comment on above: will review at next appt...non-urgent Bilirubin mass conc 1.50 mg/dL Abnormal 0.00-1.00 [facility] Internal Medicine Work Phone: Comment on above: will review at next appt...non-urgent Calcium mass conc 9.4 mg/dL Normal 8.5-10.1 [facility] Internal Medicine Work Phone: Comment on above: will review at next appt...non-urgent Chloride molar conc 107 mmol/L Normal 98-107 [facility] Internal Medicine Work Phone: Comment on above: will review at next appt...non-urgent CO2 molar conc 28.0 mmol/L Normal 21.0-32.0 [facility] Internal Medicine Work Phone: Comment on above: will review at next appt...non-urgent Creatinine mass conc 0.9 mg/dL Normal 0.8-1.3 Comp rehensive Internal Medicine Work Phone: Comment on above: will review at next appt...non-urgent GFR/1.73 sq M predicted among non-blacks MDRD vol rate/area (S/P/Bld) 89 mL/min/{1.73_m2} Normal Comp rehensive Internal Medicine Work Phone: Comment on above: will review at next appt...non-urgent Globulin mass conc (S) 3.0 g/dL Normal 2.7-4.2 Co mprehensive Internal Medicine Work Phone: Comment on above: will review at next appt...non-urgent Glucose mass conc 80 mg/dL Normal 70-110 Compreh ensive Internal Medicine Work Phone: Comment on above: will review at next appt...non-urgent Potassium molar conc 4.2 mmol/L Normal 3.5-5.1 Comp rehensive Internal Medicine Work Phone: Comment on above: will review at next appt...non-urgent Protein mass conc 6.8 g/dL Normal 6.4-8.2 Compreh ensive Internal Medicine Work Phone: Comment on above: will review at next appt...non-urgent Sodium molar conc 139 mmol/L Normal 136-145 Compreh ensive Internal Medicine Work Phone: Comment on above: will review at next appt...non-urgent Urea nitrogen mass conc 17 mg/dL Normal 7-18 C omprehensive Internal Medicine Work Phone: Comment on above: will review at next appt...non-urgent Urea nitrogen/Creatinine mass ratio 18.9 {RATIO} Normal 10-20 [facility] Work Phone: Comment on above: will review at next appt...non-urgent CMP 4 1 Abnormal 5-15 [facility] Work Phone: Comment on above: will review at next appt...non-urgent CMP 108 mL/min Normal [facility] Work Phone: Comment on above: will review at next appt...non-urgent CMP 6.8 g/dL Normal 6.4-8.2 [facility] Work Phone: Comment on above: will review at next appt...non-urgent CMP 3.0 g/dL Normal 2.7-4.2 [facility] Work Phone: Comment on above: will review at next appt...non-urgent LIPIDOrdered By: System Shanell robert on 07-06-2013 Cholesterol in HDL mass conc 38 mg/dL Abnormal [facility] Work Phone: Comment on above: Reference RangeHDL < 40 mg/dL Low HDL CholesterolHDL >or= 60 mg/dL High HDL Cholesterol Cholesterol in LDL mass conc 68 mg/dL Normal 0-130 [facility] Work Phone: Cholesterol mass conc 120 mg/dL Normal Com prehensive Internal Medicine Work Phone: Comment on above: <200 mg/dL Desirable 200-240 mg/dL Borderline>240 mg/dL High Risk Triglyceride mass conc 69 mg/dL Normal 0-199 [facility] Work Phone: Comment on above: Serum Triglycerides Reference IntervalNormal <150 mg/dLBorderline high 150 - 199 mg/dLHigh 200 - 499 mg/dLVery High > or = 500 mg/dL LIPID 14 mg/dL Normal 5-40 [facility] Work Phone: CMPOrdered By: System Vibease r on 03-22-2013 Albumin mass conc 3.9 g/dL Normal 3.4-5.0 Compreh ensive [facility] Work Phone: Albumin/Globulin mass ratio 1.1 {RATIO} Normal 0.9-2.4 [facility] Work Phone: ALP enzyme act/vol 50 U/L Normal 50-136 Compre hensive [facility] Work Phone: ALT enzyme act/vol 31 U/L Normal 12-78 Compre [facility] Internal Medicine Work Phone: AST enzyme act/vol 22 U/L Normal 15-37 Compre hensive [facility] Work Phone: Bilirubin mass conc 1.40 mg/dL Abnormal 0.00-1.00 Compr ehensive [facility] Medicine Work Phone: Calcium mass conc 9.0 mg/dL Normal 8.5-10.1 [facility] ens[facility] Work Phone: Chloride molar conc 108 mmol/L Abnormal 98-107 Compr ehensive [facility] Medicine Work Phone: CO2 molar conc 26.0 mmol/L Normal 21.0-32.0 Comprehen sive [facility] Work Phone: Creatinine mass conc 1.2 mg/dL Normal 0.8-1.3 Comp rehensive [facility] Medicine Work Phone: GFR/1.73 sq M predicted among non-blacks MDRD vol rate/area (S/P/Bld) 64 mL/min/{1.73_m2} Normal Comp rehensive [facility] Work Phone: Globulin mass conc (S) 3.5 g/dL Normal 2.7-4.2 [facility] Work Phone: Glucose mass conc 105 mg/dL Normal 70-110 [facility] Work Phone: Potassium molar conc 3.6 mmol/L Normal 3.5-5.1 Comp rehensive [facility] Work Phone: Protein mass conc 7.4 g/dL Normal 6.4-8.2 [facility] Work Phone: Sodium molar conc 141 mmol/L Normal 136-145 [facility] Work Phone: Urea nitrogen mass conc 13 mg/dL Normal 7-18 [facility] Work Phone: Urea nitrogen/Creatinine mass ratio 10.8 {RATIO} Normal 10-20 [facility] Work Phone: CMP 78 mL/min Normal [facility] Work Phone: CMP 7 1 Normal 5-15 [facility] Work Phone: CMP 7.4 g/dL Normal 6.4-8.2 [facility] Work Phone: CMP 3.5 g/dL Normal 2.7-4.2 [facility] Work Phone: [id number] By: System Manage r on 03-22-2013 FT3 2.6 pg/mL Normal 2.18-3.98 [facility] Work Phone: LIPIDOrdered By: System Shanell robert on 03-22-2013 Cholesterol in HDL mass conc 37 mg/dL Abnormal [facility] Work Phone: Comment on above: Reference RangeHDL < 40 mg/dL Low HDL CholesterolHDL >or= 60 mg/dL High HDL Cholesterol Cholesterol in LDL mass conc 64 mg/dL Normal 0-130 [facility] Work Phone: Cholesterol mass conc 127 mg/dL Normal Com prehensive [facility] Work Phone: Comment on above: <200 mg/dL Desirable 200-240 mg/dL Borderline>240 mg/dL High Risk Triglyceride mass conc 128 mg/dL Normal 0-199 [facility] Work Phone: Comment on above: Serum Triglycerides Reference IntervalNormal <150 mg/dLBorderline high 150 - 199 mg/dLHigh 200 - 499 mg/dLVery High > or = 500 mg/dL LIPID 26 mg/dL Normal 5-40 [facility] Work Phone: [id number] By: System Manage r on 03-22-2013 T4F 0.92 ng/dL Normal 0.76-1.46 [facility] Work Phone: TSHOrdered By: System Manage r on 03-22-2013 Thyrotropin Qn 2.22 {uIU/mL} Normal 0.358-3.74 [facility] Work Phone: T3, FREE (TRIDOTHYRONINE) ([id number])Ordered By: Hand Fabric Cutter on 09-02-2012 T3 free mass conc 3.1 pg/mL Normal 2.0-4.4 [facility] Work Phone: Comment on above: PATIENT NOT FASTINGP ERFORMED BY: [employer] [id number] [facility] [id number] T4, FREE (THYROXINE) ([id number]) Ordered By: Hand Fabric Cutter on 09-02-2012 T4 free mass conc 1.54 ng/dL Normal 0.82-1.77 [facility] Work Phone: Comment on above: PATIENT NOT FASTINGP ERFORMED BY: [employer] [id number] [facility] [id number] Information: [id number] TSH ([id number])Ordered By: Zingfinrosario m Business Strategist on 09-02-2012 Thyrotropin Qn 1.630 {uIU/mL} Normal 0.450-4.50 0 [facility] Work Phone: Comment on above: PATIENT NOT FASTINGP ERFORMED BY: [employer] [id number] [facility] [id number] CBCMDOrdered By: System Shanell jones on 08-25-2012 Erythrocyte distribution width Ratio (RBC) 13.3 % Normal 11.6-14.6 [facility] Work Phone: Hematocrit Volume Fraction (Bld) 42.2 % Normal 40-54 [facility] Work Phone: Hemoglobin mass conc (Bld) 14.1 g/dL Normal 13.0-16.5 [facility] Work Phone: MCH Entitic mass (RBC) 31.5 pg Normal 27.0-32.0 [facility] Work Phone: MCHC mass conc (RBC) 33.4 g/dL Normal 32-36 [facility] Work Phone: MCV Entitic volume (RBC) 94.2 fL Abnormal 80-94 [facility] Work Phone: Platelet mean volume Entitic volume (Bld) 11.1 fL Normal 6.2-12.0 Comprehensi Internal Medicine Work Phone: Platelets #/vol (Bld) 226 10*3/uL Normal 150-450 [facility] Work Phone: RBC #/vol (Bld) 4.48 {M/mm3} Abnormal 4.6-6.2 Compreh ensive [facility] Work Phone: WBC #/vol (Bld) 8.7 {k/mm3} Normal 4.4-11.0 Comprehe nsive Internal Medicine Work Phone: CBCMD 6.1 3/uL Normal 2.0-7.7 [facility] Work Phone: CBCMD 0.00 % Normal 0.0-0.0 [facility] Work Phone: CBCMD 0.2 % Normal 0-1 [facility] Work Phone: CBCMD 4.2 % Normal 0-5 [facility] Work Phone: CBCMD 9.5 % Normal 0-10 [facility] Work Phone: CBCMD 69.5 % Normal 47-70 [facility] Work Phone: CBCMD 44.4 fL Abnormal 35.1-43.9 [facility] Work Phone: CBCMD 16.6 % Abnormal 19-41 [facility] Work Phone: CMPOrdered By: System Manage r on 08-25-2012 Albumin mass conc 3.3 g/dL Abnormal 3.4-5.0 Compreh ens[facility] Work Phone: ALT enzyme act/vol 32 U/L Normal 12-78 Compre hensive [facility] Medicine Work Phone: AST enzyme act/vol 20 U/L Normal 15-37 Compre hensive [facility] Work Phone: Calcium mass conc 8.7 mg/dL Normal 8.5-10.1 Compreh ensive [facility] Work Phone: Chloride molar conc 110 mmol/L Abnormal 98-107 Compr ehensive [facility] Medicine Work Phone: CO2 molar conc 24.0 mmol/L Normal 21.0-32.0 Comprehen sive [facility] Medicine Work Phone: Creatinine mass conc 1.0 mg/dL Normal 0.8-1.3 Comp rehensive [facility] Medicine Work Phone: GFR/1.73 sq M predicted among non-blacks MDRD vol rate/area (S/P/Bld) 79 mL/min/{1.73_m2} Normal Comp rehensive [facility] Medicine Work Phone: Globulin mass conc (S) 3.3 g/dL Normal 2.7-4.2 [facility] Work Phone: Glucose mass conc 93 mg/dL Normal 70-110 Compreh ensive [facility] Work Phone: Potassium molar conc 4.0 mmol/L Normal 3.5-5.1 Comp rehensive [facility] Work Phone: Protein mass conc 6.6 g/dL Normal 6.4-8.2 Compreh ensive [facility] Work Phone: Sodium molar conc 142 mmol/L Normal 136-145 Compreh ensive [facility] Work Phone: Urea nitrogen mass conc 14 mg/dL Normal 7-18 [facility] Work Phone: CMP 96 mL/min Normal [facility] Work Phone: CMP 1.0 {RATIO} Normal 0.9-2.4 [facility] Work Phone: CMP 59 U/L Normal 50-136 [facility] Work Phone: CMP 14.0 {RATIO} Normal 10-20 Comprehensiv e [facility] Medicine Work Phone: CMP 0.70 mg/dL Normal 0.00-1.00 [facility] Work Phone: CMP 8 1 Normal 5-15 [facility] Work Phone: CMP 3.3 g/dL Normal 2.7-4.2 [facility] Work Phone: CMP 6.6 g/dL Normal 6.4-8.2 [facility] Work Phone: LIPIDOrdered By: Theodore jones on 08-25-2012 Cholesterol in HDL mass conc 30 mg/dL Abnormal [facility] Work Phone: Comment on above: Reference RangeHDL < 40 mg/dL Low HDL CholesterolHDL >or= 60 mg/dL High HDL Cholesterol Cholesterol in LDL mass conc 64 mg/dL Normal 0-130 [facility] Work Phone: Cholesterol mass conc 116 mg/dL Normal Com prehensive [facility] Work Phone: Comment on above: <200 mg/dL Desirable 200-240 mg/dL Borderline>240 mg/dL High Risk Triglyceride mass conc 111 mg/dL Normal [facility] Work Phone: Comment on above: Serum Triglycerides Reference IntervalNormal <150 mg/dLBorderline high 150 - 199 mg/dLHigh 200 - 499 mg/dLVery High > or = 500 mg/dL LIPID 22 mg/dL Normal 5-40 [facility] Work Phone: HIP MIN 2 VIEWSOrdered By: Samir wilkinson Business Strategist on 06-29-2012 HIP MIN 2 VIEWS See Note Normal [facility] Work Phone: Comment on above: PROCEDURE: X-RAY - L EFT HIP REASON FOR EXAM: Male, 67 years old. Pain following a recent fall. TECHNIQUE: Three views of the hip. COMPARISON: None. FINDINGS: Normal femoral head, neck, intertrochanteric region and visualizedproximalfemur. Normal acetabulum. Normal hip joint. Normal visualized superior and inferior pubic rami and ischialtuberosities. IMPRESSION:Normal x-ray examination of the hip. Signed:Babak Samuels M.D.June 29, 2012 at 3:20:25 PM [id number] Signed GP/GP If you are the referring physician and would like to consult with theradiologist who provided this interpretation, please contact Priyanka Fried at [phone]. If this radiologist is unavailable, youwill be directed to another radiologist to assist. If you are a patient with a question regarding this report, pleasecontactyour referring physician directly. Professional Interpretation Provided By: [employer], Phone , These documents contain legally protected and confidential healthinformation intended only for the use of the individual or entity namedabove. If you are not the intended recipient, you are hereby notifiedthatany disclosure, copying, distribution, or other use of these documents isstrictly prohibited. If you have received this information in error,pleasenotify the sender immediately and arrange for the return or destructionofthese documents. Dictated on 06/29/12 1328 by Tres Samuels MDranscribed on 06/29/12 1541 by ITS IMPORTSign by Babak Samuels MD on 06/29/12 1542 Sign by: Babak Samuels MD PROCEDURE: X-RAY - R IGHT ANKLE REASON FOR EXAM: Male, 67 years old. Pain following a recent fall. TECHNIQUE: Three views of the ankle. COMPARISON: None. FINDINGS:Normal visualized distal tibia and fibula. Normal medial and lateralmalleoli. Normal tibiotalar articulation and ankle mortise. Normal visualized talus and calcaneus. The visualized subtalar, talonavicular, calcaneocuboid and tarsalarticulations are normal. IMPRESSION:Normal x-ray examination of the ankle. Signed:Babak Samuels M.D.June 29, 2012 at 3:20:24 PM [id number] Signed GP/GP If you are the referring physician and would like to consult with theradiologist who provided this interpretation, please contact Priyanka Fried at [phone]. If this radiologist is unavailable, youwill be directed to another radiologist to assist. If you are a patient with a question regarding this report, pleasecontactyour referring physician directly. Professional Interpretation Provided By: [employer], Phone , These documents contain legally protected and confidential healthinformation intended only for the use of the individual or entity namedabove. If you are not the intended recipient, you are hereby notifiedthatany disclosure, copying, distribution, or other use of these documents isstrictly prohibited. If you have received this information in error,pleasenotify the sender immediately and arrange for the return or destructionofthese documents. Dictated on 06/29/12 1328 by Tres Samuels MDranscribed on 06/29/12 1607 by ITS IMPORTSign by Babak Samuels MD on 06/29/12 1608 Sign by: Babak Samuels MD CBCMDOrdered By: Theodore jones on 05-29-2012 Erythrocyte distribution width Ratio (RBC) 13.5 % Normal 11.6-14.6 [facility] Work Phone: Hematocrit Volume Fraction (Bld) 46.2 % Normal 40-54 [facility] Work Phone: Hemoglobin mass conc (Bld) 15.4 g/dL Normal 13.0-16.5 [facility] Work Phone: MCH Entitic mass (RBC) 31.3 pg Normal 27.0-32.0 [facility] Work Phone: MCHC mass conc (RBC) 33.3 g/dL Normal 32-36 Comp rehensive [facility] Work Phone: MCV Entitic volume (RBC) 93.9 fL Normal 80-94 [facility] Work Phone: Platelet mean volume Entitic volume (Bld) 10.6 fL Normal 6.2-12.0 Comprehensi ve Internal Medicine Work Phone: Platelets #/vol (Bld) 239 10*3/uL Normal 150-450 [facility] Work Phone: RBC #/vol (Bld) 4.92 {M/mm3} Normal 4.6-6.2 Compreh ensive [facility] Work Phone: WBC #/vol (Bld) 10.9 {k/mm3} Normal 4.4-11.0 Compreh ensive [facility] Work Phone: CBCMD 8.3 3/uL Abnormal 2.0-7.7 [facility] Work Phone: CBCMD 0.20 % Abnormal 0.0-0.0 [facility] Work Phone: CBCMD 0.1 % Normal 0-1 [facility] Work Phone: CBCMD 0.2 % Normal 0-5 [facility] Work Phone: CBCMD 8.3 % Normal 0-10 [facility] Work Phone: CBCMD 15.3 % Abnormal 19-41 [facility] Work Phone: CBCMD 75.9 % Abnormal 47-70 [facility] Work Phone: CBCMD 46.2 fL Abnormal 35.1-43.9 [facility] Work Phone: CMPOrdered By: System Manage r on 05-29-2012 Albumin mass conc 4.2 g/dL Normal 3.4-5.0 Compreh ensive [facility] Work Phone: ALT enzyme act/vol 35 U/L Normal 12-78 Compre hensive [facility] Work Phone: AST enzyme act/vol 17 U/L Normal 15-37 Compre hensive [facility] Work Phone: Calcium mass conc 9.6 mg/dL Normal 8.5-10.1 Compreh ensive [facility] Work Phone: Chloride molar conc 105 mmol/L Normal 98-107 Compr ehensive [facility] Medicine Work Phone: CO2 molar conc 25.0 mmol/L Normal 21.0-32.0 Comprehen sive [facility] Medicine Work Phone: Creatinine mass conc 1.0 mg/dL Normal 0.8-1.3 Comp rehensive [facility] Medicine Work Phone: GFR/1.73 sq M predicted among non-blacks MDRD vol rate/area (S/P/Bld) 79 mL/min/{1.73_m2} Normal Comp rehensive [facility] Medicine Work Phone: Globulin mass conc (S) 3.2 g/dL Normal 2.7-4.2 [facility] Work Phone: Glucose mass conc 124 mg/dL Abnormal 70-110 Compreh ensive [facility] Work Phone: Comment on above: Fasting Glucose resu lt from 110 to <126 mg/dLsuggests IMPAIRED HOMEOSTASIS per A.D.A. criteria. Potassium molar conc 4.1 mmol/L Normal 3.5-5.1 Comp rehensive [facility] Work Phone: Protein mass conc 7.4 g/dL Normal 6.4-8.2 Compreh ensive [facility] Work Phone: Sodium molar conc 138 mmol/L Normal 136-145 Compreh ensive [facility] Work Phone: Urea nitrogen mass conc 18 mg/dL Normal 7-18 [facility] Work Phone: CMP 18.0 {RATIO} Normal 10-20 Comprehensiv e Internal Medicine Work Phone: CMP 96 mL/min Normal [facility] Work Phone: CMP 8 1 Normal 5-15 [facility] Work Phone: CMP 1.10 mg/dL Abnormal 0.00-1.00 [facility] Work Phone: CMP 42 U/L Abnormal 50-136 [facility] Work Phone: CMP 1.3 {RATIO} Normal 0.9-2.4 [facility] Work Phone: CMP 7.4 g/dL Normal 6.4-8.2 [facility] Work Phone: CMP 3.2 g/dL Normal 2.7-4.2 [facility] Work Phone: TSHOrdered By: System Manage r on 05-29-2012 Thyrotropin Qn 0.61 {uIU/mL} Normal 0.358-3.74 Compreh ensive [facility] Work Phone: PSAOrdered By: System Manage r on 06-21-2011 Prostate specific Ag mass conc 1.4 ng/mL Normal 0.0-4.0 [facility] Work Phone: TSHOrdered By: System Manage r on 06-21-2011 Thyrotropin Qn 1.19 {uIU/mL} Normal 0.358-3.74 Compreh ensive [facility] Medicine Work Phone: Comment on above: appt 07/02/11 C-REACTIVE PROTOrdered By: S koreytem Business Strategist on 08-21-2010 CRP mass conc mg/L Normal 0.0-3.0 [facility] Work Phone: Comment on above: C-Reactive Protein ( CRP) provides useful information for thediagnosis, therapy and monitoring of inflammatory processesand associated diseases. For the evaluation of Relative Riskfor Cardiovascular Disease, a High Sensitivity CRP (HSCRP)should be ordered. TERA DIR SEMI-QLOrdered By: S HelpHubtem Business Strategist on 07-11-2010 TERA DIR SEMI-QL 42 AU/mL Normal [facility] Work Phone: ANTI-CCP [id number] By: S Help[employer]tem Business Strategist on 07-11-2010 ANTI-CCP [id number] 1 {units} Normal 0-19 [facility] Internal Medicine Work Phone: Comment on above: Negative <20 Weak po sitive 20 - 39 Moderate positive 40 - 59 Strong positive >59Performed at: [facility] [address] [id number] Director: Amor Mccormack PhD, Phone: [phone] at: [facility] [employer] [address] [id number] Director: Celine Jhaveri MD, Phone: [phone] at: - [facility] [address] [id number] Director: Bharat Brower MD, Phone: [phone] C-REACTIVE PROTOrdered By: S koreytem Business Strategist on 07-11-2010 CRP mass conc 18.50 mg/L Abnormal 0.0-3.0 Comprehensi ve Internal Medicine Work Phone: Comment on above: C-Reactive Protein ( CRP) provides useful information for thediagnosis, therapy and monitoring of inflammatory processesand associated diseases. For the evaluation of Relative Riskfor Cardiovascular Disease, a High Sensitivity CRP (HSCRP)should be ordered. CBCD,SMEAR DIFFOrdered By: Samir acosta Business Strategist on 07-11-2010 Band form neutrophils/100 WBC (Bld) 2 % Normal 0-5 [facility] Work Phone: Eosinophils/100 WBC (Bld) 1 % Normal 0-5 [facility] Work Phone: Erythrocyte distribution width Ratio (RBC) 13.5 % Normal 11.6-14.6 [facility] Internal Medicine Work Phone: Hematocrit Volume Fraction (Bld) 43.5 % Normal 40-54 [facility] Work Phone: Hemoglobin mass conc (Bld) 14.6 g/dL Normal 14.0-18.0 [facility] Internal Medicine Work Phone: Lymphocytes/100 WBC (Bld) 16 % Abnormal 19-41 [facility] Medicine Work Phone: MCH Entitic mass (RBC) 32.3 pg Abnormal 27.0-32.0 [facility] Work Phone: MCHC mass conc (RBC) 33.5 g/dL Normal 32-36 Comp rehensive Internal Medicine Work Phone: MCV Entitic volume (RBC) 96.6 fL Abnormal 80-94 [facility] Work Phone: Monocytes/100 WBC (Bld) 1 % Normal 0-10 [facility] Work Phone: Neutrophils #/vol (Bld) 7.6 3/uL Normal 2.0-7.7 [facility] Work Phone: Platelets #/vol (Bld) SeeNote Normal Com prehensive Internal Medicine Work Phone: Comment on above: Result: ADEQUATE Platelets #/vol (Bld) 240 10*3/uL Normal 150-450 [facility] Work Phone: RBC #/vol (Bld) 4.50 {M/mm3} Abnormal 4.6-6.2 [facility] Work Phone: WBC #/vol (Bld) 10.4 10*3/uL Normal 4.4-11.0 Compreh [facility] Internal Medicine Work Phone: CBCD,SMEAR DIFF 80 % Abnormal 47-70 [facility] Work Phone: CBCD,SMEAR DIFF 100 1 Normal [facility] Work Phone: CBCD,SMEAR DIFF 2 % Normal 0-5 [facility] Internal Medicine Work Phone: COMP METABOLICOrdered By: Jeremie stem Business Strategist on 07-11-2010 Albumin mass conc 3.7 g/dL Normal 3.4-5.0 [facility] Internal Medicine Work Phone: Albumin/Globulin mass ratio 1.1 {RATIO} Normal 0.9-2.4 [facility] Internal Medicine Work Phone: ALP enzyme act/vol 39 U/L Abnormal 50-136 [facility] Internal Medicine Work Phone: ALT enzyme act/vol 35 U/L Normal 12-78 [facility] Internal Medicine Work Phone: Anion gap molar conc 8 mmol/L Normal 5-15 [facility] Internal Medicine Work Phone: AST enzyme act/vol 22 U/L Normal 15-37 [facility] Internal Medicine Work Phone: Bilirubin mass conc 1.10 mg/dL Abnormal 0.00-1.00 Compr [facility] Internal Medicine Work Phone: Calcium mass conc 8.6 mg/dL Normal 8.5-10.1 [facility]pre[facility] Internal Medicine Work Phone: Chloride molar conc 106 mmol/L Normal 98-107 [facility] Internal Medicine Work Phone: CO2 molar conc 26.0 mmol/L Normal 21.0-32.0 [facility] Internal Medicine Work Phone: Creatinine mass conc 0.9 mg/dL Normal 0.8-1.3 [facility] Internal Medicine Work Phone: GFR/1.73 sq M predicted among blacks MDRD vol rate/area (S/P/Bld) 108 mL/min/{1.73_m2} Normal Compreh ensive Internal Medicine Work Phone: GFR/1.73 sq M.predicted MDRD (S/P/Bld) [Vol rate/Area] 89 mL/min/{1.73_m2} Normal Comprehensiv e Internal Medicine Work Phone: GFR/1.73 sq M.predicted MDRD vol rate/area 89 mL/min/{1.73_m2} Normal Comprehen sive Internal Medicine Work Phone: Globulin mass conc (S) 3.3 g/dL Normal 2.7-4.2 [facility] Work Phone: Glucose mass conc 87 mg/dL Normal 70-110 Compreh ensive Internal Medicine Work Phone: Potassium molar conc 4.2 mmol/L Normal 3.5-5.1 Comp rehensive Internal Medicine Work Phone: Protein mass conc 7.0 g/dL Normal 6.4-8.2 Compreh ensive Internal Medicine Work Phone: Sodium molar conc 140 mmol/L Normal 136-145 Compreh ensive Internal Medicine Work Phone: Urea nitrogen mass conc 13 mg/dL Normal 7-18 [facility] Work Phone: Urea nitrogen/Creatinine mass ratio 14.4 {RATIO} Normal 10-20 [facility] Work Phone: CPK TOTALOrdered By: Hand Fabric Cutter on 07-11-2010 CPK TOTAL 227 U/L Normal 39-308 [facility] Work Phone: Comment on above: Please note: Revised Creatinine Kinase (CK) Reference ramge effective 02/22/10. ESROrdered By: System Manage r on 07-11-2010 ESR Velocity (Bld) 7 mm/h Normal 0-20 Compre hensive Internal Medicine Work Phone: FOOT,MIN 3 VIEWSOrdered By: Hand Fabric Cutter on 07-11-2010 FOOT,MIN 3 VIEWS See Note Normal Comprehe nsive Internal Medicine Work Phone: Comment on above: CLINICAL:Male, 65 ye ars old. Pain across the metatarsals. No injury. X-RAY EXAMINATION - LEFT FOOT TECHNIQUE:Three views of the foot. COMPARISON:None. FINDINGS:Normal talus, calcaneus, and tarsal bones. Normal visualized subtalar, talonavicular, calcaneocuboid, tarsal andtarsometatarsal articulations. Normal metatarsi. Normal metatarsophalangeal joint of the great toe. Normal tibial andfibular sesamoid bones. Normal interphalangeal joint of the great toe.Normal phalanges of the great toe. Normal second through fifth metatarsophalangeal joints. Normalinterphalangeal joints of the lesser toes. Normal phalanges of thelessertoes. IMPRESSION:Normal x-ray examination of the foot. Dictated on 07/11/10 1246 by Luis Fernando Vital MDTranscribed on 07/12/101553 by ITS IMPORTSign by Luis Fernando Vital MD on 07/12/101554 Sign by: Luis Fernando Vital MD Result: Negative Pos itive: 5 of the following Borrelia-specific bands: 18,23,28,30,39,41,45,58, 66, and 93. Negative: No bands or banding patterns which do not meet positive criteria. Result: NORM C+C Result: Not Observed Result: NEGATIVE Result: Negative Not e: An equivocal or positive EIA result followed by anegative Western Blot result is considered NEGATIVE. Anequivocal or positive EIA result followed by a positiveWestern Blot is considered POSITIVE by the CDC. .Positive: 2 of the following bands: 23,39 or 41Negative: No bands or banding patterns which do not meetpositive criteria.Criteria for positivity are those recommended byCDC/ASTPHLD. p23=Osp C, w15=nndlqhtyy .Note:Sera from individuals with the following may cross reactin the Lyme Western Blot assays: other spirochetal diseases(periodontal disease, leptospirosis, relapsing fever, yaws,and pinta); connective autoimmune (Rheumatoid Arthritis andSystemic Lupus Erythematosus and also individuals withAntinuclear Antibody); other infections (Joseph MountainSpotted Fever; Lelia-Osborn Virus, and Cytomegalovirus). .Both the IgG and IgM Immunoblots should be used insuspected cases within the first four weeks of the onset ofsymptoms (early Lyme disease). A positive IgM test alone isnot recommended for use in determining active disease inindividuals with illness greater than one months durationbecause of the increased probability of a false positiveresult. If symptoms persist, the patient should be retestedfor seroconversion to IgG after an additional 4 to 6weeks. A nega-tive immunoblot in a patient with suspectedearly Lyme disease should have a convalescent sample tested2 to 4 weeks later. LYME,WB [id number] By: Grono.net Business Strategist on 07-11-2010 LYME,WB [id number] Absent Normal [facility] Work Phone: LYME,WB [id number] Present Abnormal [facility] Work Phone: PROT.[id number] By: Samir HelpHubtem Business Strategist on 07-11-2010 Protein mass conc Comment Normal [facility] Work Phone: Comment on above: Protein electrophore sis scan will follow via computer,mail, or coil cleaner delivery. Protein mass conc 3.1 mg/dL Normal 0.0-15.0 [facility] Work Phone: PROT.[id number] 16.3 % Normal [facility] Work Phone: PROT.[id number] 31.3 % Normal [facility] Work Phone: PROT.[id number] 3.4 % Normal [facility] Work Phone: PROT.[id number] 11.9 % Normal [facility] Work Phone: PROT.[id number] 37.2 % Normal [facility] Work Phone: PROT.[id number] 3.1 mg/dL Normal 0.0-15.0 [facility] Work Phone: RHEUMATOID FACOrdered By: Gron[employer] Business Strategist on 07-11-2010 Rheumatoid factor Qn [IU]/mL Normal Comp rehensive [facility] Work Phone: ROUTINE UAOrdered By: Hand Fabric Cutter on 07-11-2010 Clarity Nom (U) CLEAR Normal Comprehen [facility] Work Phone: Color Nom (U) YELLOW Normal Comprehensi ve [facility] Work Phone: Glucose mass conc SeeNote Normal [facility] Work Phone: Comment on above: Result: NEGATIVE Protein mass conc SeeNote Normal [facility] Work Phone: Comment on above: Result: NEGATIVE ROUTINE UA 5.0 1 Normal 5.0-8.0 [facility] Work Phone: ROUTINE UA 1.010 1 Normal 1.002-1.03 0 [facility] Work Phone: ROUTINE UA 0.2 EU/dl Normal 0.2 - 1.0 [facility] Work Phone: SPE [id number] By: Hand Fabric Cutter on 07-11-2010 Albumin mass conc 3.8 g/dL Normal 3.2-5.6 [facility] Work Phone: Albumin/Globulin mass ratio 1.4 {ratio} Normal 0.7-2.0 [facility] Work Phone: Globulin mass conc (S) 2.7 g/dL Normal 2.0-4.5 [facility] Work Phone: Protein mass conc 6.5 g/dL Normal 6.0-8.5 [facility] Work Phone: SPE [id number] Comment Normal [facility] Work Phone: Comment on above: The SPE pattern appe ars essentially unremarkable. Evidenceof monoclonal protein is not apparent.Protein electrophoresis scan will follow via computer,mail, or coil cleaner delivery. Protein electrophore sis scan will follow via computer,mail, or coil cleaner delivery. SPE [id number] 0.3 g/dL Normal 0.1-0.4 [facility] Work Phone: SPE [id number] 0.7 g/dL Normal 0.4-1.2 [facility] Work Phone: SPE [id number] 1.0 g/dL Normal 0.6-1.3 [facility] Work Phone: SPE [id number] 0.8 g/dL Normal 0.5-1.6 [facility] Work Phone: TSHOrdered By: System Manage r on 07-11-2010 Thyrotropin Qn 1.07 {uIU/mL} Normal 0.358-3.74 [facility] Work Phone: CBC with manual diff ([id number]) Ordered By: Hand Fabric Cutter on 06-22-2010 Basophils #/vol (Bld) 0.0 {x10E3/uL} Normal 0.0-0.2 [facility] Work Phone: Comment on above: PATIENT NOT FASTINGP ERFORMED BY: DONA [facility] Rpdzvz4680 [facility] [id number] Information: [id number] Basophils (Bld) [#/Vol] 0.0 10*3/uL Normal 0.0-0.2 [facility]; [facility] Work Phone: Comment on above: PATIENT NOT FASTINGP ERFORMED BY: CB [facility] Qspaoj8405 [facility] [id number] Information: [id number] Basophils/100 WBC (Bld) 0 % Normal 0-3 [facility] Work Phone: Comment on above: PATIENT NOT FASTINGP ERFORMED BY: CB [facility] Mrghbz5774 [facility] [id number] Information: [id number] Eosinophils #/vol (Bld) 0.3 {x10E3/uL} Normal 0.0-0.4 [facility] Work Phone: Comment on above: PATIENT NOT FASTINGP ERFORMED BY: CB [facility] Ydtaqx2056 [facility] [id number] Information: [id number] Eosinophils (Bld) [#/Vol] 0.3 10*3/uL Normal 0.0-0.4 [facility]; [facility] Work Phone: Comment on above: PATIENT NOT FASTINGP ERFORMED BY: DONA Cantor70 [facility] [id number] Information: [id number] Eosinophils/100 WBC (Bld) 3 % Normal 0-7 [facility] Work Phone: Comment on above: PATIENT NOT FASTINGP ERFORMED BY: DONA Roy[address] [id number] Information: [id number] Erythrocyte distribution width Ratio (RBC) 13.6 % Normal 11.7-15.0 [facility] Work Phone: Comment on above: PATIENT NOT FASTINGP ERFORMED BY: DONA Mueller[address] [id number] Information: [id number] Hematocrit Volume Fraction (Bld) 43.9 % Normal 36.0-50.0 [facility] Work Phone: Comment on above: PATIENT NOT FASTINGP ERFORMED BY: DONA Roy[address] [id number] Information: [id number] Hemoglobin mass conc (Bld) 14.8 g/dL Normal 12.5-17.0 [facility] Work Phone: Comment on above: PATIENT NOT FASTINGP ERFORMED BY: DONA Roy[address] [id number] Information: [id number] Immature granulocytes #/vol (Bld) 0.0 {x10E3/uL} Normal 0.0-0.1 [facility] Work Phone: Comment on above: PATIENT NOT FASTINGP ERFORMED BY: DONA Rodriguez Akkrim9227 [facility] [id number] Information: [id number] Immature granulocytes (Bld) [#/Vol] 0.0 10*3/uL Normal 0.0-0.1 [facility]; [facility] Work Phone: Comment on above: PATIENT NOT FASTINGP ERFORMED BY: DONA Mg [facility] [id number] Information: [id number] Immature granulocytes/100 WBC (Bld) 0 % Normal 0-1 [facility] Work Phone: Comment on above: PATIENT NOT FASTINGP ERFORMED BY: DONA Muellerlin6370 [facility] [id number] Information: [id number] Lymphocytes #/vol (Bld) 1.9 {x10E3/uL} Normal 0.7-4.5 [facility] Work Phone: Comment on above: PATIENT NOT FASTINGP ERFORMED BY: DONA Muellerlin6370 [facility] [id number] Information: [id number] Lymphocytes (Bld) [#/Vol] 1.9 10*3/uL Normal 0.7-4.5 [facility]; [facility] Work Phone: Comment on above: PATIENT NOT FASTINGP ERFORMED BY: DONA Muellerlin6370 [facility] [id number] Information: [id number] Lymphocytes/100 WBC (Bld) 22 % Normal 14-46 [facility] Work Phone: Comment on above: PATIENT NOT FASTINGP ERFORMED BY: DONA Roy [address]ry[address] [id number] Information: [id number] MCH Entitic mass (RBC) 31.9 pg Normal 27.0-34.0 Co [facility] Work Phone: Comment on above: PATIENT NOT FASTINGP ERFORMED BY: DONA Roy Cqxhbb9435 [facility] [id number] Information: [id number] MCHC mass conc (RBC) 33.7 g/dL Normal 32.0-36.0 [facility] Internal [facility] Work Phone: Comment on above: PATIENT NOT FASTINGP ERFORMED BY: DONA Mg [facility] [id number] Information: [id number] MCV Entitic volume (RBC) 95 fL Normal 80-98 [facility] Work Phone: Comment on above: PATIENT NOT FASTINGP ERFORMED BY: DONA Mg [facility] [id number] Information: [id number] Monocytes #/vol (Bld) 1.0 {x10E3/uL} Normal 0.1-1.0 [facility] Work Phone: Comment on above: PATIENT NOT FASTINGP ERFORMED BY: DONA Muellerlin6370 [facility] [id number] Information: [id number] Monocytes (Bld) [#/Vol] 1.0 10*3/uL Normal 0.1-1.0 [facility]; [facility] Work Phone: Comment on above: PATIENT NOT FASTINGP ERFORMED BY: DONA Muellerlin6370 [facility] [id number] Information: [id number] Monocytes/100 WBC (Bld) 12 % Normal 4-13 [facility] Work Phone: Comment on above: PATIENT NOT FASTINGP ERFORMED BY: DONA Roy Kyxpxy3578 [facility] [id number] Information: [id number] Neutrophils #/vol (Bld) 5.4 {x10E3/uL} Normal 1.8-7.8 [facility] Work Phone: Comment on above: PATIENT NOT FASTINGP ERFORMED BY: DONA Muellerlin6370 [facility] [id number] Information: [id number] Neutrophils (Bld) [#/Vol] 5.4 10*3/uL Normal 1.8-7.8 [facility]; [facility] Work Phone: Comment on above: PATIENT NOT FASTINGP ERFORMED BY: DONA Castillo6370 [facility] [id number] Information: [id number] Neutrophils/100 WBC (Bld) 63 % Normal 40-74 [facility] Work Phone: Comment on above: PATIENT NOT FASTINGP ERFORMED BY: DONA Castillo6370 [facility] [id number] Information: [id number] Platelets #/vol (Bld) 215 {x10E3/uL} Normal 140-415 [facility] Work Phone: Comment on above: PATIENT NOT FASTINGP ERFORMED BY: DONA Castillo6370 [facility] [id number] Information: [id number] Platelets (Bld) [#/Vol] 215 10*3/uL Normal 140-415 [facility]; [facility] Work Phone: Comment on above: PATIENT NOT FASTINGP ERFORMED BY: DONA Castillo6370 [facility] [id number] Information: [id number] RBC #/vol (Bld) 4.64 {x10E6/uL} Normal 4.10-5.60 [facility] Internal Medicine Work Phone: Comment on above: PATIENT NOT FASTINGP ERFORMED BY: DONA Muellerlin6370 [facility] [id number] Information: [id number] RBC (Bld) [#/Vol] 4.64 10*6/uL Normal 4.10-5.60 [facility] Internal [facility]; [facility] Work Phone: Comment on above: PATIENT NOT FASTINGP ERFORMED BY: DONA Muellerlin6370 [facility] [id number] Information: [id number] WBC #/vol (Bld) 8.6 {x10E3/uL} Normal 4.0-10.5 Compr ens[facility] Work Phone: Comment on above: PATIENT NOT FASTINGP ERFORMED BY: DONA [facility] Uzkhow1792 [facility] [id number] Information: [id number] WBC (Bld) [#/Vol] 8.6 10*3/uL Normal 4.0-10.5 Compre [facility]; [facility] Work Phone: Comment on above: PATIENT NOT FASTINGP ERFORMED BY: DONA [facility] Fogecn6285 [facility] [id number] Information: [id number] URIC ACID BLOOD ([id number])Order ed By: Hand Fabric Cutter on 06-22-2010 Urate mass conc 4.8 mg/dL Normal 3.7-8.6 [facility] Work Phone: Comment on above: Therapeutic target f or gout patients: <6.0 PATIENT NOT FASTINGP ERFORMED BY: DONA [facility] Eavckh2842 [facility] [id number] CBCD,SMEAR DIFFOrdered By: Samir ystem Business Strategist on 05-03-2010 Basophils/100 WBC (Bld) 1 % Normal 0-1 [facility] Work Phone: Eosinophils/100 WBC (Bld) 3 % Normal 0-5 [facility] Work Phone: Erythrocyte distribution width Ratio (RBC) 13.3 % Normal 11.6-14.6 [facility] Work Phone: Hematocrit Volume Fraction (Bld) 45.7 % Normal 40-54 [facility] Work Phone: Hemoglobin mass conc (Bld) 16.0 g/dL Normal 14.0-18.0 [facility] Work Phone: Lymphocytes/100 WBC (Bld) 28 % Normal 19-41 [facility] Work Phone: MCH Entitic mass (RBC) 33.2 pg Abnormal 27.0-32.0 [facility] Work Phone: MCHC mass conc (RBC) 35.0 g/dL Normal 32-36 Comp rehensive [facility] Work Phone: MCV Entitic volume (RBC) 94.9 fL Abnormal 80-94 [facility] Work Phone: Neutrophils #/vol (Bld) 4.1 3/uL Normal 2.0-7.7 [facility] Work Phone: Platelets #/vol (Bld) 209 10*3/uL Normal 150-450 [facility] Work Phone: Platelets #/vol (Bld) SeeNote Normal Com prehensive [facility] Work Phone: Comment on above: Result: ADEQUATE RBC #/vol (Bld) 4.81 {M/mm3} Normal 4.6-6.2 [facility] Work Phone: WBC #/vol (Bld) 7.0 10*3/uL Normal 4.4-11.0 Comprehe ns[facility] Work Phone: CBCD,SMEAR DIFF 11 % Abnormal 0-10 [facility] Work Phone: CBCD,SMEAR DIFF 57 % Normal 47-70 [facility] Work Phone: CBCD,SMEAR DIFF 100 1 Normal [facility] Work Phone: COMP METABOLICOrdered By: Jeremie stem Business Strategist on 05-03-2010 Albumin mass conc 3.8 g/dL Normal 3.4-5.0 [facility] Work Phone: Albumin/Globulin mass ratio 1.2 {RATIO} Normal 0.9-2.4 [facility] Work Phone: ALP enzyme act/vol 35 U/L Abnormal 50-136 Compre [facility] Internal [facility] Work Phone: ALT enzyme act/vol 38 U/L Normal 12-78 Compre [facility] Work Phone: Anion gap molar conc 5 mmol/L Normal 5-15 Comp rehens[facility] Work Phone: AST enzyme act/vol 25 U/L Normal 15-37 Compre hensive [facility] Work Phone: Bilirubin mass conc 1.50 mg/dL Abnormal 0.00-1.00 Compr ehensive [facility] Work Phone: Calcium mass conc 9.2 mg/dL Normal 8.5-10.1 Compre[facility] Work Phone: Chloride molar conc 107 mmol/L Normal 98-107 Compr ehensive [facility] Work Phone: CO2 molar conc 26.0 mmol/L Normal 21.0-32.0 Comprehen s[facility] Work Phone: Creatinine mass conc 1.0 mg/dL Normal 0.8-1.3 Comp rehens[facility] Work Phone: GFR/1.73 sq M predicted among blacks MDRD vol rate/area (S/P/Bld) 96 mL/min/{1.73_m2} Normal Comprehe nsive [facility] Work Phone: GFR/1.73 sq M.predicted MDRD (S/P/Bld) [Vol rate/Area] 79 mL/min/{1.73_m2} Normal Comprehensiv e [facility] Medicine Work Phone: GFR/1.73 sq M.predicted MDRD vol rate/area 79 mL/min/{1.73_m2} Normal Comprehen sive [facility] Work Phone: Globulin mass conc (S) 3.3 g/dL Normal 2.7-4.2 Co [facility] Work Phone: Glucose mass conc 85 mg/dL Normal 70-110 Compre[facility] ensive [facility] Work Phone: Potassium molar conc 4.6 mmol/L Normal 3.5-5.1 Comp rehensive [facility] Work Phone: Protein mass conc 7.1 g/dL Normal 6.4-8.2 Compre[facility] Work Phone: Sodium molar conc 138 mmol/L Normal 136-145 Compre[facility] ens[facility] Work Phone: Urea nitrogen mass conc 17 mg/dL Normal 7-18 [facility] Work Phone: Urea nitrogen/Creatinine mass ratio 17.0 {RATIO} Normal 10-20 [facility] Work Phone: PSA, SCREENOrdered By: Zingfine m Business Strategist on 05-03-2010 Prostate specific Ag mass conc 1.0 ng/mL Normal 0.0-4.0 [facility] Work Phone: ROUTINE UAOrdered By: Hand Fabric Cutter on 05-03-2010 Clarity Nom (U) CLEAR Normal Comprehen sive [facility] Work Phone: Color Nom (U) YELLOW Normal Comprehensi ve [facility] Medicine Work Phone: Glucose mass conc SeeNote Normal Compreh ensive [facility] Work Phone: Comment on above: Result: NEGATIVE Protein mass conc SeeNote Normal Compreh ensive [facility] Work Phone: Comment on above: Result: NEGATIVE ROUTINE UA SeeNote Normal [facility] Work Phone: Comment on above: Result: NEGATIVE Result: NORM C+C ROUTINE UA 0.2 EU/dl Normal 0.2 - 1.0 [facility] Work Phone: ROUTINE UA 5.0 1 Normal 5.0-8.0 [facility] Work Phone: ROUTINE UA 1.025 1 Normal 1.002-1.03 0 [facility] Work Phone: TSHOrdered By: System Manage r on 05-03-2010 Thyrotropin Qn 0.66 {uIU/mL} Normal 0.358-3.74 Compreh ensive [facility] Work Phone: TSHOrdered By: System Manage r on 12-01-2009 Thyrotropin Qn 0.52 {uIU/mL} Normal 0.358-3.74 Compreh ensive [facility] Work Phone: BMPOrdered By: System Manage r on 08-07-2009 Anion gap molar conc 7 mmol/L Normal 5-15 Comp rehensive [facility] Medicine Work Phone: Calcium mass conc 8.7 mg/dL Normal 8.5-10.1 Compreh ensive [facility] Work Phone: Chloride molar conc 108 mmol/L Abnormal 98-107 Compr ehensive [facility] Work Phone: CO2 molar conc 26.0 mmol/L Normal 21.0-32.0 Comprehen sive [facility] Work Phone: Creatinine mass conc 1.0 mg/dL Normal 0.8-1.3 Comp rehensive [facility] Work Phone: GFR/1.73 sq M predicted among blacks MDRD vol rate/area (S/P/Bld) 96 mL/min/{1.73_m2} Normal Comprehe nsive [facility] Medicine Work Phone: GFR/1.73 sq M.predicted MDRD (S/P/Bld) [Vol rate/Area] 79 mL/min/{1.73_m2} Normal Comprehensiv e [facility] Medicine Work Phone: GFR/1.73 sq M.predicted MDRD vol rate/area 79 mL/min/{1.73_m2} Normal Comprehen sive [facility] Work Phone: Glucose mass conc 89 mg/dL Normal 70-110 Compreh ensive [facility] Work Phone: Potassium molar conc 4.3 mmol/L Normal 3.5-5.1 Comp rehensive [facility] Work Phone: Sodium molar conc 141 mmol/L Normal 136-145 Compreh ensive [facility] Work Phone: Urea nitrogen mass conc 15 mg/dL Normal 7-18 [facility] Work Phone: Urea nitrogen/Creatinine mass ratio 15.0 {RATIO} Normal 10-20 [facility] Work Phone: FREE Q9Hoxgdzb By: Theodore leonardo on 08-07-2009 T3 free mass conc 2.7 pg/mL Normal 2.18-3.98 Compreh ensive [facility] Work Phone: [place] [id number] By: Samir nairtem Business Strategist on 08-07-2009 [place] 6676 160 {IU/mL} Abnormal 0-34 Comprehe nsive [facility] Medicine Work Phone: Comment on above: Performed at: [address] [id number] Director: Celine Jhaveri MD, Phone: [phone] T4 FREE DIRECTOrdered By: Sy stem Business Strategist on 08-07-2009 T4 free mass conc 0.74 ng/dL Abnormal 0.76-1.46 Compreh ensive [facility] Work Phone: TSHOrdered By: System Manage r on 08-07-2009 Thyrotropin Qn 5.19 {uIU/mL} Abnormal 0.358-3.74 Compreh ensive [facility] Work Phone: LESA CULTURE-OTHER ([id number])Ord ered By: Hand Fabric Cutter on 06-29-2009 Bacteria identified Respiratory culture Nom (Unsp spec) Final report Normal [facility] Work Phone: Comment on above: PATIENT NOT FASTINGP ERFORMED BY: [facility] [id number] Information: SRC:THRT [id number] Bacteria identified Respiratory culture Nom (Unsp spec) RRF Normal [facility] Work Phone: Comment on above: Routine respiratory mary PATIENT NOT FASTINGP ERFORMED BY: Lab[address] [id number] Information: SRC:THRT [id number] Rapid Strep Test, Office ([id number])Ordered By: Susan Manzano on 06-29-2009 S. pyogenes Ag EIA Ql (Throat) Negative Normal [facility]; [facility] Work Phone: S. pyogenes Ag IA Ql (Unsp spec) Negative Normal [facility] Work Phone: CBCDOrdered By: System Manag er on 05-15-2009 Basophils/100 WBC (Bld) 0.3 % Normal 0-1 [facility] Work Phone: Eosinophils/100 WBC (Bld) 4.5 % Normal 0-5 [facility] Work Phone: Erythrocyte distribution width Ratio (RBC) 13.4 % Normal 11.6-14.6 [facility] Work Phone: Hematocrit Volume Fraction (Bld) 47.2 % Normal 40-54 [facility] Work Phone: Hemoglobin mass conc (Bld) 15.9 g/dL Normal 14.0-18.0 [facility] Work Phone: Lymphocytes/100 WBC (Bld) 27.8 % Normal 19-41 [facility] Work Phone: MCH Entitic mass (RBC) 31.8 pg Normal 27.0-32.0 [facility] Work Phone: MCHC mass conc (RBC) 33.8 g/dL Normal 32-36 Comp rehensive Internal Medicine Work Phone: MCV Entitic volume (RBC) 94.1 fL Abnormal 80-94 [facility] Work Phone: Monocytes/100 WBC (Bld) 8.2 % Normal 0-10 [facility] Work Phone: Neutrophils #/vol (Bld) 4.9 3/uL Normal 2.0-7.7 [facility] Work Phone: Neutrophils/100 WBC (Bld) 59.2 % Normal 47-70 [facility] Work Phone: Platelet mean volume Entitic volume (Bld) 8.4 fL Normal 6.5-12.0 Comprehensi ve Internal Medicine Work Phone: Platelets #/vol (Bld) 209 10*3/uL Normal 150-450 [facility] Work Phone: RBC #/vol (Bld) 5.01 {M/mm3} Normal 4.6-6.2 Compreh ensive [facility] Medicine Work Phone: WBC #/vol (Bld) 8.4 10*3/uL Normal 4.4-11.0 Comprehe nsive Internal Medicine Work Phone: COMP METABOLICOrdered By: Sy stem Business Strategist on 05-15-2009 Albumin mass conc 3.8 g/dL Normal 3.4-5.0 [facility] Internal Medicine Work Phone: Comment on above: DR WILSON ORDERED LIPID /LPDRFAST ORDERED CMP LIPID CBCD PSA TSH UA Albumin/Globulin mass ratio 1.1 {RATIO} Normal 0.9-2.4 [facility] Internal Medicine Work Phone: Comment on above: DR WILSON ORDERED LIPID /LPDRFAST ORDERED CMP LIPID CBCD PSA TSH UA ALP enzyme act/vol 43 U/L Abnormal 50-136 [facility] Internal Medicine Work Phone: Comment on above: DR WILSON ORDERED LIPID /LPDRFAST ORDERED CMP LIPID CBCD PSA TSH UA ALT enzyme act/vol 35 U/L Normal 12-78 [facility] Internal Medicine Work Phone: Comment on above: DR WILSON ORDERED LIPID /LPDRFAST ORDERED CMP LIPID CBCD PSA TSH UA Anion gap molar conc 9 mmol/L Normal 5-15 [facility] Internal Medicine Work Phone: Comment on above: DR WILSON ORDERED LIPID /LPDRFAST ORDERED CMP LIPID CBCD PSA TSH UA AST enzyme act/vol 22 U/L Normal 15-37 [facility] Internal Medicine Work Phone: Comment on above: DR WILSON ORDERED LIPID /LPDRFAST ORDERED CMP LIPID CBCD PSA TSH UA Bilirubin mass conc 1.00 mg/dL Normal 0.00-1.00 [facility] Internal Medicine Work Phone: Comment on above: DR WILSON ORDERED LIPID /LPDRFAST ORDERED CMP LIPID CBCD PSA TSH UA Calcium mass conc 8.6 mg/dL Normal 8.5-10.1 [facility] Internal Medicine Work Phone: Comment on above: DR WILSON ORDERED LIPID /LPDRFAST ORDERED CMP LIPID CBCD PSA TSH UA Chloride molar conc 107 mmol/L Normal 98-107 [facility] Internal Medicine Work Phone: Comment on above: DR WILSON ORDERED LIPID /LPDRFAST ORDERED CMP LIPID CBCD PSA TSH UA CO2 molar conc 25.0 mmol/L Normal 21.0-32.0 [facility] Internal Medicine Work Phone: Comment on above: DR WILSON ORDERED LIPID /LPDRFAST ORDERED CMP LIPID CBCD PSA TSH UA Creatinine mass conc 1.2 mg/dL Normal 0.8-1.3 Comp rehensive Internal Medicine Work Phone: Comment on above: DR WILSON ORDERED LIPID /LPDRFAST ORDERED CMP LIPID CBCD PSA TSH UA GFR/1.73 sq M predicted among blacks MDRD vol rate/area (S/P/Bld) 78 mL/min/{1.73_m2} Normal Comprehe nsive Internal Medicine Work Phone: Comment on above: DR WILSON ORDERED LIPID /LPDRFAST ORDERED CMP LIPID CBCD PSA TSH UA GFR/1.73 sq M.predicted MDRD (S/P/Bld) [Vol rate/Area] 64 mL/min/{1.73_m2} Normal Comprehensiv e [facility] Medicine Work Phone: Comment on above: DR WILSON ORDERED LIPID /LPDRFAST ORDERED CMP LIPID CBCD PSA TSH UA GFR/1.73 sq M.predicted MDRD vol rate/area 64 mL/min/{1.73_m2} Normal Comprehen sive Internal Medicine Work Phone: Comment on above: DR WILSON ORDERED LIPID /LPDRFAST ORDERED CMP LIPID CBCD PSA TSH UA Globulin mass conc (S) 3.6 g/dL Normal 2.7-4.2 [facility] Work Phone: Comment on above: DR WILSON ORDERED LIPID /LPDRFAST ORDERED CMP LIPID CBCD PSA TSH UA Glucose mass conc 105 mg/dL Normal 70-110 Compreh ensive [facility] Medicine Work Phone: Comment on above: DR WILSON ORDERED LIPID /LPDRFAST ORDERED CMP LIPID CBCD PSA TSH UA Potassium molar conc 4.3 mmol/L Normal 3.5-5.1 Comp rehensive Internal Medicine Work Phone: Comment on above: DR WILSON ORDERED LIPID /LPDRFAST ORDERED CMP LIPID CBCD PSA TSH UA Protein mass conc 7.4 g/dL Normal 6.4-8.2 Compreh ensive [facility] Medicine Work Phone: Comment on above: DR WILSON ORDERED LIPID /LPDRFAST ORDERED CMP LIPID CBCD PSA TSH UA Sodium molar conc 141 mmol/L Normal 136-145 Compreh ensive [facility] Work Phone: Comment on above: DR WILSON ORDERED LIPID /LPDRFAST ORDERED CMP LIPID CBCD PSA TSH UA Urea nitrogen mass conc 19 mg/dL Abnormal 7-18 C omprehensive [facility] Medicine Work Phone: Comment on above: DR WILSON ORDERED LIPID /LPDRFAST ORDERED CMP LIPID CBCD PSA TSH UA Urea nitrogen/Creatinine mass ratio 15.8 {RATIO} Normal 10-20 [facility] Work Phone: Comment on above: DR WILSON ORDERED LIPID /LPDRFAST ORDERED CMP LIPID CBCD PSA TSH UA D BILIOrdered By: System Man ager on 05-15-2009 Bilirubin.direct mass conc 0.23 mg/dL Normal 0.00-0.30 [facility] Work Phone: Comment on above: DR WILSON ORDERED LIPID /LPDRFAST ORDERED CMP LIPID CBCD PSA TSH UA LIPIDOrdered By: System Shanell robert on 05-15-2009 Cholesterol in HDL mass conc 33 mg/dL Abnormal [facility] Work Phone: Comment on above: Reference RangeHDL < 40 mg/dL Low HDL CholesterolHDL >or= 60 mg/dL High HDL Cholesterol DR WILSON ORDERED LIPID /LPDRFAST ORDERED CMP LIPID CBCD PSA TSH UA Cholesterol in LDL mass conc 61 mg/dL Normal 0-130 [facility] Work Phone: Comment on above: DR WILSON ORDERED LIPID /LPDRFAST ORDERED CMP LIPID CBCD PSA TSH UA Cholesterol in VLDL mass conc 18 mg/dL Normal 5-40 [facility] Work Phone: Comment on above: DR WILSON ORDERED LIPID /LPDRFAST ORDERED CMP LIPID CBCD PSA TSH UA Cholesterol mass conc 112 mg/dL Normal Com prehensive [facility] Medicine Work Phone: Comment on above: <200 mg/dL Desirable 200-240 mg/dL Borderline>240 mg/dL High Risk DR WILSON ORDERED LIPID /LPDRFAST ORDERED CMP LIPID CBCD PSA TSH UA Triglyceride mass conc 90 mg/dL Normal Co mprehensive [facility] Work Phone: Comment on above: Serum Triglycerides Reference IntervalNormal <150 mg/dLBorderline high 150 - 199 mg/dLHigh 200 - 499 mg/dLVery High > or = 500 mg/dL DR WILSON ORDERED LIPID /LPDRFAST ORDERED CMP LIPID CBCD PSA TSH UA PSA, SCREENOrdered By: [employer] Business Strategist on 05-15-2009 Prostate specific Ag mass conc 1.3 ng/mL Normal 0.0-4.0 [facility] Work Phone: ROUTINE UAOrdered By: Hand Fabric Cutter on 05-15-2009 Clarity Nom (U) CLEAR Normal Comprehen sive [facility] Medicine Work Phone: Color Nom (U) YELLOW Normal Comprehensi ve Internal Medicine Work Phone: Glucose mass conc SeeNote Normal Compreh ensive [facility] Work Phone: Comment on above: Result: NEGATIVE Protein mass conc SeeNote Normal Compreh ensive [facility] Work Phone: Comment on above: Result: NEGATIVE ROUTINE UA 1.025 1 Normal 1.002-1.03 0 [facility] Work Phone: ROUTINE UA 5.0 1 Normal 5.0-8.0 [facility] Work Phone: ROUTINE UA SeeNote Normal [facility] Work Phone: Comment on above: Result: NEGATIVE ROUTINE UA 0.2 EU/dl Normal 0.2 - 1.0 [facility] Work Phone: TSHOrdered By: System Vibease r on 05-15-2009 Thyrotropin Qn 5.03 {uIU/mL} Abnormal 0.358-3.74 Compreh ensive [facility] Work Phone: Comment on above: DR WILSON ORDERED LIPID /LPDRFAST ORDERED CMP LIPID CBCD PSA TSH UA LIPIDOrdered By: System Shanell jones on 01-23-2009 Cholesterol in HDL mass conc 35 mg/dL Normal [facility] Work Phone: Comment on above: Reference Range HDL <40 mg/dL Low HDL Cholesterol HDL >or= 60 mg/dL High HDL Cholesterol Cholesterol in LDL mass conc 71 mg/dL Normal 0-130 [facility] Work Phone: Cholesterol in VLDL mass conc 22 mg/dL Normal 5-40 [facility] Work Phone: Cholesterol mass conc 128 mg/dL Normal Com prehensive [facility] Medicine Work Phone: Comment on above: <200 mg/dL Desirable 200-240 mg/dL Borderline >240 mg/dL High Risk Triglyceride mass conc 111 mg/dL Normal Co [facility] Work Phone: Comment on above: Serum Triglycerides Reference Interval Normal <150 mg/dL Borderline high 150 - 199 mg/dL High 200 - 499 mg/dL Very High > or = 500 mg/dL LIVEROrdered By: System Shanell robert on 01-23-2009 Albumin mass conc 3.9 g/dL Normal 3.4-5.0 Compreh ensive [facility] Medicine Work Phone: ALP enzyme act/vol 46 U/L Abnormal 50-136 [facility] Work Phone: ALT enzyme act/vol 33 U/L Normal 12-78 Compre [facility] Internal Medicine Work Phone: Comment on above: Please Note: Adam ed Reference Range effective 09 AST enzyme act/vol 22 U/L Normal 15-37 [facility] Work Phone: Bilirubin mass conc 1.10 mg/dL Abnormal 0.00-1.00 Compr ehensive Internal Medicine Work Phone: Bilirubin.direct mass conc 0.24 mg/dL Normal 0.00-0.30 [facility] Work Phone: Protein mass conc 6.8 g/dL Normal 6.4-8.2 Compreh ensive [facility] Medicine Work Phone: CBCDOrdered By: System Manag er on 06-10-2008 Basophils/100 WBC (Bld) 0.6 % Normal 0-1 [facility] Work Phone: Eosinophils/100 WBC (Bld) 5.2 % Abnormal 0-5 [facility] Work Phone: Erythrocyte distribution width Ratio (RBC) 13.6 % Normal 11.6-14.6 [facility] Work Phone: Hematocrit Volume Fraction (Bld) 44.9 % Normal 40-54 [facility] Work Phone: Hemoglobin mass conc (Bld) 15.7 g/dL Normal 14.0-18.0 [facility] Work Phone: Lymphocytes/100 WBC (Bld) 30.6 % Normal 19-41 [facility] Work Phone: MCH Entitic mass (RBC) 32.3 pg Abnormal 27.0-32.0 Co mprehensive [facility] Work Phone: MCHC mass conc (RBC) 34.9 g/dL Normal 32-36 Comp rehensive Internal Medicine Work Phone: MCV Entitic volume (RBC) 92.7 fL Normal 80-94 [facility] Work Phone: Monocytes/100 WBC (Bld) 9.5 % Normal 0-10 [facility] Work Phone: Neutrophils/100 WBC (Bld) 54.1 % Normal 47-70 [facility] Work Phone: Platelet mean volume Entitic volume (Bld) 8.6 fL Normal 6.5-12.0 Comprehensi ve Internal Medicine Work Phone: Platelets #/vol (Bld) 212 10*3/uL Normal 150-450 Co [facility] Work Phone: RBC #/vol (Bld) 4.85 {M/mm3} Normal 4.6-6.2 Compreh ensive Internal Medicine Work Phone: WBC #/vol (Bld) 7.9 10*3/uL Normal 4.4-11.0 Comprehe nsive Internal Medicine Work Phone: COMP METABOLICOrdered By: Sy stem Business Strategist on 06-10-2008 Albumin mass conc 3.6 g/dL Normal 3.4-5.0 Compreh ensive [facility] Medicine Work Phone: Albumin/Globulin mass ratio 1.3 {RATIO} Normal 0.9-2.4 [facility] Work Phone: ALP enzyme act/vol 44 U/L Abnormal 50-136 Compre hensive [facility] Medicine Work Phone: ALT enzyme act/vol 43 U/L Normal 30-65 [facility] Work Phone: Anion gap molar conc 5 mmol/L Normal 5-15 Comp rehensive Internal Medicine Work Phone: AST enzyme act/vol 18 U/L Normal 15-37 [facility] Work Phone: Bilirubin mass conc 1.18 mg/dL Abnormal 0.00-1.00 Compr ensive [facility] Medicine Work Phone: Calcium mass conc 8.6 mg/dL Normal 8.5-10.1 Compreh ensive [facility] Medicine Work Phone: Chloride molar conc 108 mmol/L Abnormal 98-107 Compr ensive Internal Medicine Work Phone: CO2 molar conc 29.0 mmol/L Normal 21.0-32.0 [facility] Work Phone: Creatinine mass conc 1.1 mg/dL Normal 0.8-1.3 [facility] Work Phone: GFR/1.73 sq M predicted among blacks MDRD vol rate/area (S/P/Bld) 86 mL/min/{1.73_m2} Normal Comprehe nsive Internal Medicine Work Phone: GFR/1.73 sq M.predicted MDRD (S/P/Bld) [Vol rate/Area] 71 mL/min/{1.73_m2} Normal Comprehensiv e Internal Medicine Work Phone: GFR/1.73 sq M.predicted MDRD vol rate/area 71 mL/min/{1.73_m2} Normal [facility] Work Phone: Globulin mass conc (S) 2.8 g/dL Normal 2.7-4.2 [facility] Phone: Glucose mass conc 96 mg/dL Normal 70-110 Compreh ensive [facility] Medicine Work Phone: Potassium molar conc 4.4 mmol/L Normal 3.5-5.1 Comp rehensive Internal Medicine Work Phone: Protein mass conc 6.4 g/dL Normal 6.4-8.2 Compreh ensive Internal Medicine Work Phone: Sodium molar conc 142 mmol/L Normal 136-145 Compreh ensive Internal Medicine Work Phone: Urea nitrogen mass conc 14 mg/dL Normal 7-18 [facility] Work Phone: Urea nitrogen/Creatinine mass ratio 12.7 {RATIO} Normal 10-20 [facility] Work Phone: LIPIDOrdered By: System Shanell robert on 06-10-2008 Cholesterol in HDL mass conc 30 mg/dL Abnormal [facility] Work Phone: Comment on above: Reference Range HDL <40 mg/dL Low HDL Cholesterol HDL >or= 60 mg/dL High HDL Cholesterol Cholesterol in LDL mass conc 58 mg/dL Normal 0-130 [facility] Work Phone: Cholesterol in VLDL mass conc 24 mg/dL Normal 5-40 [facility] Work Phone: Cholesterol mass conc 112 mg/dL Normal Com prehensive Internal Medicine Work Phone: Comment on above: <200 mg/dL Desirable 200-240 mg/dL Borderline >240 mg/dL High Risk Triglyceride mass conc 119 mg/dL Normal Co mprehensive [facility] Work Phone: Comment on above: Serum Triglycerides Reference Interval Normal <150 mg/dL Borderline high 150 - 199 mg/dL High 200 - 499 mg/dL Very High > or = 500 mg/dL PSA,TOT SCREENOrdered By: Sy stem Business Strategist on 06-10-2008 Prostate specific Ag mass conc 1.04 ng/mL Normal 0.00-4.00 [facility] Work Phone: Comment on above: This test was perfor med using the TPSA method for the[employer] chemistry system.Values obtained with different assay methods cannot be usedinterchangably.When changing PSA assays in the course of monitoring apatient, additional sequential testing should be carriedout to confirm baseline values. ROUTINE UAOrdered By: Hand Fabric Cutter on 06-10-2008 Clarity Nom (U) CLEAR Normal Comprehen sive Internal Medicine Work Phone: Color Nom (U) YELLOW Normal Comprehensi ve Internal Medicine Work Phone: Glucose mass conc SeeNote Normal Compreh ensive Internal Medicine Work Phone: Comment on above: Result: NEGATIVE Protein mass conc SeeNote Normal Compreh ensive [facility] Medicine Work Phone: Comment on above: Result: NEGATIVE ROUTINE UA SeeNote Normal [facility] Work Phone: Comment on above: Result: NEGATIVE ROUTINE UA 5.0 1 Normal 5.0-8.0 [facility] Work Phone: ROUTINE UA 1.020 1 Normal 1.002-1.03 0 [facility] Work Phone: ROUTINE UA 0.2 EU/dl Normal 0.2 - 1.0 [facility] Work Phone: TSHOrdered By: System Manage r on 06-10-2008 Thyrotropin Qn 3.35 {uIU/mL} Normal 0.34-4.82 Compreh ensive Internal Medicine Work Phone: PSA, DIAGNOSTICOrdered By: S [employer] Business Strategist on 06-10-2007 Prostate specific Ag mass conc 0.9 ng/mL Normal 0.0-4.0 [facility] Work Phone: Comment on above: This test was perfor med using the TPSA method for the[employer] chemistry system.Values obtained with different assay methods cannot be usedinterchangably.When changing PSA assays in the course of monitoring apatient, additional sequential testing should be carriedout to confirm baseline values. CBCD,SMEAR DIFFOrdered By: S [employer] Business Strategist on 02-02-2007 Band form neutrophils/100 WBC (Bld) 1 % Normal 0-5 [facility] Work Phone: Eosinophils/100 WBC (Bld) 5 % Normal 0-5 [facility] Work Phone: Erythrocyte distribution width Ratio (RBC) 13.3 % Normal 11.6-14.6 [facility] Work Phone: Hematocrit Volume Fraction (Bld) 46.2 % Normal 40-54 [facility] Work Phone: Hemoglobin mass conc (Bld) 16.1 g/dL Normal 14.0-18.0 [facility] Work Phone: Lymphocytes/100 WBC (Bld) 24 % Normal 19-41 [facility] Work Phone: MCH Entitic mass (RBC) 32.7 pg Abnormal 27.0-32.0 Co m[facility] Work Phone: MCHC mass conc (RBC) 34.8 g/dL Normal 32-36 Comp rehensive Internal Medicine Work Phone: MCV Entitic volume (RBC) 94.0 fL Normal 80-94 [facility] Work Phone: Monocytes/100 WBC (Bld) 9 % Normal 0-10 [facility] Work Phone: Platelets #/vol (Bld) 223 10*3/uL Normal 150-450 Co m[facility] Work Phone: Platelets #/vol (Bld) SeeNote Normal Com prehensive Internal Medicine Work Phone: Comment on above: Result: ADEQUATE RBC #/vol (Bld) 4.92 {M/mm3} Normal 4.6-6.2 Compreh ensive Internal Medicine Work Phone: WBC #/vol (Bld) 6.3 10*3/uL Normal 4.4-11.0 Comprehe nsive Internal Medicine Work Phone: CBCD,SMEAR DIFF 61 % Normal 47-70 [facility] Work Phone: CBCD,SMEAR DIFF 100 1 Normal [facility] Work Phone: CBCD,SMEAR DIFF 1 % Normal 0-5 [facility] Work Phone: COMP METABOLICOrdered By: Jeremie stem Business Strategist on 02-02-2007 Albumin mass conc 3.8 g/dL Normal 3.4-5.0 Compreh ensive Internal Medicine Work Phone: Albumin/Globulin mass ratio 1.2 {RATIO} Normal 0.9-2.4 [facility] Work Phone: ALP enzyme act/vol 49 U/L Abnormal 50-136 Compre [facility] Internal Medicine Work Phone: ALT enzyme act/vol 44 [iU]/L Normal 30-65 Compre [facility] Internal Medicine Work Phone: Anion gap molar conc 8 mmol/L Normal 5-[address] [facility] Work Phone: AST enzyme act/vol 31 U/L Normal 15-37 Compre [facility] Internal Medicine Work Phone: Bilirubin mass conc 1.60 mg/dL Abnormal 0.00-1.00 Compr ehensive Internal Medicine Work Phone: Calcium mass conc 8.4 mg/dL Abnormal 8.5-10.1 Compreh ensive Internal Medicine Work Phone: Chloride molar conc 103 mmol/L Normal 98-107 Compr ensive Internal Medicine Work Phone: CO2 molar conc 27.4 mmol/L Normal 21.0-32.0 [facility] Work Phone: Comment on above: Please Note Refer ence Interval Change Creatinine mass conc 1.2 mg/dL Normal 0.8-1.[address] [facility] Work Phone: Globulin mass conc (S) 3.1 g/dL Normal 2.7-4.2 Co [facility] Work Phone: Comment on above: Please Note Refer ence Interval Change Glucose mass conc 80 mg/dL Normal 70-110 Compreh ensive Internal Medicine Work Phone: Potassium molar conc 4.3 mmol/L Normal 3.5-5.[address] [facility] Work Phone: Protein mass conc 6.9 g/dL Normal 6.4-8.2 Compreh ensive Internal Medicine Work Phone: Sodium molar conc 138 mmol/L Normal 136-145 Compreh ensive Internal Medicine Work Phone: Urea nitrogen mass conc 18 mg/dL Normal 7-18 [facility] Work Phone: Urea nitrogen/Creatinine mass ratio 15.0 {RATIO} Normal 10-20 [facility] Work Phone: ROUTINE UAOrdered By: Hand Fabric Cutter on 02-02-2007 Clarity Nom (U) Clear Normal Comprehen sive Internal Medicine Work Phone: Color Nom (U) Yellow Normal Comprehensi ve Internal Medicine Work Phone: Glucose mass conc SeeNote Normal Compreh ensive Internal Medicine Work Phone: Comment on above: Result: Negative Protein mass conc SeeNote Normal Compreh ensive Internal Medicine Work Phone: Comment on above: Result: Negative ROUTINE UA SeeNote Normal [facility] Work Phone: Comment on above: Result: Negative Result: NORM C&C ROUTINE UA 0.2 EU/dl Normal 0.2 - 1.0 [facility] Work Phone: ROUTINE UA 1+ Abnormal [facility] Work Phone: ROUTINE UA 1.025 1 Normal 1.002-1.03 0 [facility] Work Phone: ROUTINE UA 5.0 1 Normal 5.0-8.0 [facility] Work Phone: TSHOrdered By: System Vibease r on 02-02-2007 Thyrotropin Qn 3.01 {uIU/mL} Normal 0.34-4.82 Compreh ensive Internal Medicine Work Phone: LIPIDOrdered By: System Shanell jones on 07-24-2006 Cholesterol in HDL mass conc 29 mg/dL Abnormal [facility] Work Phone: Comment on above: Reference Range HDL <40 mg/dL Low HDL Cholesterol HDL >or= 60 mg/dL High HDL Cholesterol Cholesterol in LDL mass conc 63 mg/dL Normal 0-130 [facility] Work Phone: Cholesterol in VLDL mass conc 22 mg/dL Normal 5-40 [facility] Work Phone: Cholesterol mass conc 114 mg/dL Normal Com prehensive Internal Medicine Work Phone: Comment on above: <200 mg/dL Desirable 200-240 mg/dL Borderline >240 mg/dL High Risk Triglyceride mass conc 109 mg/dL Normal Co [facility] Internal Medicine Work Phone: Comment on above: Serum Triglycerides Reference Interval Normal <150 mg/dL Borderline high 150 - 199 mg/dL High 200 - 499 mg/dL Very High > or = 500 mg/dL LIVEROrdered By: Theodore jones on 07-24-2006 Albumin mass conc 3.7 g/dL Normal 3.4-5.0 [facility] Internal [facility] Work Phone: ALP enzyme act/vol 42 U/L Abnormal 50-136 Compre [facility] Internal Medicine Work Phone: ALT enzyme act/vol 43 [iU]/L Normal 30-65 Compre [facility] Internal Medicine Work Phone: AST enzyme act/vol 24 U/L Normal 15-37 [facility] Internal Medicine Work Phone: Bilirubin mass conc 0.98 mg/dL Normal 0.00-1.00 [facility] Internal Medicine Work Phone: Bilirubin.direct mass conc 0.11 mg/dL Normal 0.00-0.30 [facility] Work Phone: Protein mass conc 6.4 g/dL Normal 6.4-8.2 [facility] Work Phone: Vital Signs Date Time Vital Sign Value Performing Clinician Stephen nixon 07-23-2024 15:44-0400 Body temperature 98.1 [degF] Dr. Hilton Jay DO Work Phone: [facility] 07-23-2024 15:44-0400 Diastolic blood pressure 78 mm[Hg] Dr. Hilton Jay DO Work Phone: [facility] 07-23-2024 15:44-0400 Heart rate 52 /min Dr. Hilton Jay DO Work Phone: [facility] 07-23-2024 15:44-0400 Respiratory rate 18 /min Dr. Hilton Jay DO Work Phone: [facility] 07-23-2024 15:44-0400 SaO2% (BldA) [Mass fraction] 97 % Dr. Hilton Jay DO Work Phone: [facility] 07-23-2024 15:44-0400 Systolic blood pressure 157 mm[Hg] Dr. Hilton Jay DO Work Phone: [facility] 07-23-2024 14:08-0400 Body height 177.[address] Hilton Jay DO Work Phone: [facility] 07-23-2024 14:08-0400 Body mass index (BMI) [Ratio] 25.5 kg/m2 Dr. Hilton Jay DO Work Phone: [facility] 07-23-2024 14:08-0400 Body weight 80.[address] Hilton Jay DO Work Phone: [facility] 09-28-2022 00:51-0400 Diastolic blood pressure 72 mm[Hg] Dr. Hilton Jay Work Phone: [facility] 09-28-2022 00:51-0400 Heart rate 62 /min Dr. Hilton Jay Work Phone: [facility] 09-28-2022 00:51-0400 Respiratory rate 16 /min Dr. Hilton Jay Work Phone: [facility] 09-28-2022 00:51-0400 SaO2% (BldA) [Mass fraction] 98 % Dr. Hilton Jay Work Phone: [facility] 09-28-2022 00:51-0400 Systolic blood pressure 146 mm[Hg] Dr. Hilton Jay Work Phone: [facility] 09-27-2022 22:55-0400 Body height 177.[address] Hilton Jay Work Phone: [facility] 09-27-2022 22:55-0400 Body mass index (BMI) [Ratio] 25.2 kg/m2 Dr. Hilton Jay Work Phone: [facility] 09-27-2022 22:55-0400 Body temperature 97.8 [degF] Dr. Hilton Jay Work Phone: [facility] 09-27-2022 22:55-0400 Body weight 79.[address] Hilton Jay Work Phone: [facility] 09-24-2022 00:21-0400 Body weight 78.[address] Hilton Jay Work Phone: [facility] 09-11-2022 11:24-0400 Body weight 78.[address] Hilton Jay Work Phone: [facility] 08-16-2022 10:37-0400 Body height 177.[address] Hilton Jay Work Phone: [facility] 08-16-2022 10:37-0400 Body mass index (BMI) [Ratio] 25.1 kg/m2 Dr. Hilton Jay Work Phone: [facility] 08-16-2022 10:37-0400 Body weight 79.[address] Hilton Jay Work Phone: [facility] 08-16-2022 10:37-0400 Diastolic blood pressure 54 mm[Hg] Dr. Hilton Jay Work Phone: [facility] 08-16-2022 10:37-0400 Heart rate 62 /min Dr. Hilton Jay Work Phone: [facility] 08-16-2022 10:37-0400 Respiratory rate 18 /min Dr. Hilton Jay Work Phone: [facility] 08-16-2022 10:37-0400 Systolic blood pressure 115 mm[Hg] Dr. Hilton Jay Work Phone: [facility] 08-14-2022 08:18-0400 Body weight 80.[address] Hilton Jay Work Phone: [facility] 07-15-2022 09:14-0400 Body height 177.[address] Hilton Jay Work Phone: [facility] 07-15-2022 09:14-0400 Body weight 79.[address] Hilton Jay Work Phone: [facility] 07-15-2022 08:48-0400 Body mass index (BMI) [Ratio] 25.1 kg/m2 Dr. Hilton Jay Work Phone: [facility] 07-15-2022 08:48-0400 Body temperature 97.6 [degF] Dr. Hilton Jay Work Phone: [facility] 07-15-2022 08:48-0400 Diastolic blood pressure 75 mm[Hg] Dr. Hilton Jay Work Phone: [facility] 07-15-2022 08:48-0400 Heart rate 62 /min Dr. Hilton Jay Work Phone: [facility] 07-15-2022 08:48-0400 Respiratory rate 14 /min Dr. Hilton Jay Work Phone: [facility] 07-15-2022 08:48-0400 SaO2% (BldA) [Mass fraction] 96 % Dr. Hilton Jay Work Phone: [facility] 07-15-2022 08:48-0400 Systolic blood pressure 150 mm[Hg] Dr. Hilton Jay Work Phone: [facility] 07-05-2022 09:05-0400 Body height 177.8 cm Reina Bartone PA-C Work Phone: [facility] 07-05-2022 09:05-0400 Body weight 79.83 kg Reina Bartone PA-C Work Phone: [facility] 07-05-2022 09:05-0400 Diastolic blood pressure 75 mm[Hg] Reina Bartone PA-C Work Phone: [facility] 07-05-2022 09:05-0400 Heart rate 62 /min Reina Rodríguez PA-C Work Phone: [facility] 07-05-2022 09:05-0400 Systolic blood pressure 150 mm[Hg] Reina Rodríguez PA-C Work Phone: [facility] 06-25-2022 10:24-0400 Body height 177.8 cm [facility] 06-25-2022 10:24-0400 Body weight 78.47 kg [facility] 06-25-2022 10:24-0400 Diastolic blood pressure 76 mm[Hg] [facility] 06-25-2022 10:24-0400 Heart rate 56 /min [facility] 06-25-2022 10:24-0400 SaO2% (BldA) [Mass fraction] 97 % [facility] 06-25-2022 10:24-0400 Systolic blood pressure 152 mm[Hg] [facility] 06-12-2022 08:08-0400 Body temperature 96.9 [degF] [facility]; [facility] Work Phone: 06-12-2022 08:08-0400 Body weight 81.31 kg [facility]; [facility] Work Phone: 06-12-2022 08:08-0400 Diastolic blood pressure 80 mm[Hg] [facility]; [facility] Work Phone: 06-12-2022 08:08-0400 Heart rate 59 /min [facility]; [facility] Work Phone: 06-12-2022 08:08-0400 Respiratory rate 18 /min [facility]; [facility] Work Phone: 06-12-2022 08:08-0400 SaO2% (BldA) [Mass fraction] 97 % [facility]; [facility] Work Phone: 06-12-2022 08:08-0400 Systolic blood pressure 120 mm[Hg] Mat Kwan [facility]; [facility] Work Phone: 06-03-2022 00:44-0400 Diastolic blood pressure 79 mm[Hg] Dr. Hilton Jay Work Phone: [facility] 06-03-2022 00:44-0400 Heart rate 57 /min Dr. Hilton Jay Work Phone: [facility] 06-03-2022 00:44-0400 Respiratory rate 15 /min Dr. Hilton Jay Work Phone: [facility] 06-03-2022 00:44-0400 SaO2% (BldA) [Mass fraction] 99 % Dr. Hilton Jay Work Phone: [facility] 06-03-2022 00:44-0400 Systolic blood pressure 148 mm[Hg] Dr. Hilton Jay Work Phone: [facility] 06-02-2022 21:11-0400 Body height 177.[address] Hilton Jay Work Phone: [facility] 06-02-2022 21:11-0400 Body mass index (BMI) [Ratio] 25.5 kg/m2 Dr. Hilton Jay Work Phone: [facility] 06-02-2022 21:11-0400 Body temperature 97.6 [degF] Dr. Hilton Jay Work Phone: [facility] 06-02-2022 21:11-0400 Body weight 80.[address] Hilton Jay Work Phone: [facility] 05-07-2022 14:52-0400 Body mass index (BMI) [Ratio] 25.4 kg/m2 Dr. Hilton Jay Work Phone: [facility] 05-07-2022 14:52-0400 Body weight 80.[address] Hilton Jay Work Phone: [facility] 05-07-2022 14:52-0400 Diastolic blood pressure 69 mm[Hg] Dr. Hiltno Jay Work Phone: [facility] 05-07-2022 14:52-0400 Heart rate 59 /min Dr. Hilton Jay Work Phone: [facility] 05-07-2022 14:52-0400 Respiratory rate 16 /min Dr. Hilton Jay Work Phone: [facility] 05-07-2022 14:52-0400 Systolic blood pressure 132 mm[Hg] Dr. Hilton Jay Work Phone: [facility] 05-04-2022 08:58-0500 Diastolic blood pressure 69 mm[Hg] Dr. Hilton Jay Work Phone: [facility] 05-04-2022 08:58-0500 Heart rate 59 /min Dr. Hilton Jay Work Phone: [facility] 05-04-2022 08:58-0500 Systolic blood pressure 126 mm[Hg] Dr. Hilton Jay Work Phone: [facility] 05-04-2022 08:53-0500 Body temperature 97.6 [degF] Dr. Hilton Jay Work Phone: [facility] 05-04-2022 08:53-0500 Respiratory rate 16 /min Dr. Hilton Jay Work Phone: [facility] 05-04-2022 08:53-0500 SaO2% (BldA) [Mass fraction] 97 % Dr. Hilton Jay Work Phone: [facility] 05-03-2022 12:35-0500 Body height 177.[address] Hilton Jay Work Phone: [facility] 05-03-2022 12:35-0500 Body mass index (BMI) [Ratio] 25 kg/m2 Dr. Hilton Jay Work Phone: [facility] 05-03-2022 12:35-0500 Body weight 79.[address] Hilton Jay Work Phone: [facility] 05-03-2022 12:14-0500 Diastolic blood pressure 74 mm[Hg] Dr. Hilton Jay Work Phone: [facility] 05-03-2022 12:14-0500 Heart rate 56 /min Dr. Hilton Jay Work Phone: [facility] 05-03-2022 12:14-0500 Respiratory rate 16 /min Dr. Hilton Jay Work Phone: [facility] 05-03-2022 12:14-0500 SaO2% (BldA) [Mass fraction] 97 % Dr. Hilton Jay Work Phone: [facility] 05-03-2022 12:14-0500 Systolic blood pressure 138 mm[Hg] Dr. Hilton Jay Work Phone: [facility] 05-03-2022 11:49-0500 Body temperature 97.8 [degF] Dr. Hilton Jay Work Phone: [facility] 05-03-2022 09:01-0500 Body mass index (BMI) [Ratio] 25.7 kg/m2 Dr. Hilton Jay Work Phone: [facility] 05-03-2022 09:01-0500 Body weight 81.[address] Hilton Jay Work Phone: [facility] 05-03-2022 08:58-0500 Body height 177.[address] Hilton Jay Work Phone: [facility] 12-20-2021 11:48-0400 Diastolic blood pressure 73 mm[Hg] Dr. Hilton Jay Work Phone: [facility] Work Phone: 12-20-2021 11:48-0400 Systolic blood pressure 150 mm[Hg] Dr. Hilton Jay Work Phone: [facility] Work Phone: 12-20-2021 10:55-0400 Body height 177.[address] Hilton Jay Work Phone: [facility] Work Phone: 12-20-2021 10:55-0400 Body mass index (BMI) [Ratio] 25.1 kg/m2 Dr. Hilton Jay Work Phone: [facility] Work Phone: 12-20-2021 10:55-0400 Body weight 79.[address] Hilton Jay Work Phone: [facility] Work Phone: 12-20-2021 10:55-0400 Heart rate 62 /min Dr. Hilton Jay Work Phone: [facility] Work Phone: 12-20-2021 10:55-0400 Respiratory rate 16 /min Dr. Hilton Jay Work Phone: [facility] Work Phone: 12-20-2021 10:55-0400 SaO2% (BldA) [Mass fraction] 98 % Dr. Hilton Jay Work Phone: [facility] Work Phone: 12-10-2021 08:07-0400 Body temperature 96.4 [degF] Isabell Driscoll MA [facility]; [facility] Work Phone: 12-10-2021 08:07-0400 Body weight 82.27 kg Isabell Driscoll MA [facility]; [facility] Work Phone: 12-10-2021 08:07-0400 Diastolic blood pressure 82 mm[Hg] Isabell Driscoll MA [facility]; [facility] Work Phone: 12-10-2021 08:07-0400 Heart rate 58 /min Isabell Driscoll MA [facility]; [facility] Work Phone: 12-10-2021 08:07-0400 Respiratory rate 17 /min Isabell Driscoll MA [facility]; [facility] Work Phone: 12-10-2021 08:07-0400 SaO2% (BldA) [Mass fraction] 97 % Isabell Driscoll MA [facility]; [facility] Work Phone: 12-10-2021 08:07-0400 Systolic blood pressure 120 mm[Hg] Isabell Driscoll MA [facility]; [facility] Work Phone: 11-22-2021 13:26-0400 Body height 177.8 cm Abhishek Alegria MD Work Phone: [facility] 11-22-2021 13:26-0400 Body weight 78.29 kg Abhishek Alegria MD Work Phone: [facility] 11-22-2021 13:26-0400 Diastolic blood pressure 76 mm[Hg] Abhishek Alegria MD Work Phone: [facility] 11-22-2021 13:26-0400 Heart rate 57 /min Abhishek Alegria MD Work Phone: [facility] 11-22-2021 13:26-0400 Respiratory rate 18 /min Abhishek Alegria MD Work Phone: [facility] 11-22-2021 13:26-0400 SaO2% (BldA) [Mass fraction] 99 % Abhishek Alegria MD Work Phone: [facility] 11-22-2021 13:26-0400 Systolic blood pressure 160 mm[Hg] Abhishek Alegria MD Work Phone: [facility] 09-20-2021 08:37-0400 Body height 177.[address] Hilton Jay Work Phone: [facility] Work Phone: 09-20-2021 08:33-0400 Body mass index (BMI) [Ratio] 24.8 kg/m2 Dr. Hilton Jay Work Phone: [facility] Work Phone: 09-20-2021 08:33-0400 Body weight 78.[address] Hilton Jay Work Phone: [facility] Work Phone: 09-20-2021 08:33-0400 Diastolic blood pressure 83 mm[Hg] Dr. Hilton Jay Work Phone: [facility] Work Phone: 09-20-2021 08:33-0400 Heart rate 55 /min Dr. Hilton Jay Work Phone: [facility] Work Phone: 09-20-2021 08:33-0400 Respiratory rate 18 /min Dr. Hilton Jay Work Phone: [facility] Work Phone: 09-20-2021 08:33-0400 SaO2% (BldA) [Mass fraction] 99 % Dr. Hilton Jay Work Phone: [facility] Work Phone: 09-20-2021 08:33-0400 Systolic blood pressure 134 mm[Hg] Dr. Hilton Jay Work Phone: [facility] Work Phone: 09-18-2021 10:10-0400 Body height 177.[address] Hilton Jay Work Phone: [facility] Work Phone: 09-18-2021 10:10-0400 Body mass index (BMI) [Ratio] 25.1 kg/m2 Dr. Hilton Jay Work Phone: [facility] Work Phone: 09-18-2021 10:10-0400 Body temperature 97.9 [degF] Dr. Hilton Jay Work Phone: [facility] Work Phone: 09-18-2021 10:10-0400 Body weight 79.[address] Hilton Jay Work Phone: [facility] Work Phone: 09-18-2021 10:10-0400 Diastolic blood pressure 77 mm[Hg] Dr. Hilton Jay Work Phone: [facility] Work Phone: 09-18-2021 10:10-0400 Heart rate 69 /min Dr. Hilton Jay Work Phone: [facility] Work Phone: 09-18-2021 10:10-0400 Respiratory rate 18 /min Dr. Hilton Jay Work Phone: [facility] Work Phone: 09-18-2021 10:10-0400 SaO2% (BldA) [Mass fraction] 99 % Dr. Hilton Jay Work Phone: [facility] Work Phone: 09-18-2021 10:10-0400 Systolic blood pressure 133 mm[Hg] Dr. Hilton Jay Work Phone: [facility] Work Phone: 08-08-2021 16:10-0400 Diastolic blood pressure 59 mm[Hg] [facility] 08-08-2021 16:10-0400 Heart rate 57 /min [facility] 08-08-2021 16:10-0400 Respiratory rate 17 /min [facility] 08-08-2021 16:10-0400 SaO2% (BldA) [Mass fraction] 96 % [facility] 08-08-2021 16:10-0400 Systolic blood pressure 114 mm[Hg] [facility] 08-08-2021 14:37-0400 Body temperature 96.8 [degF] [facility] 08-08-2021 11:04-0400 Body height 177.8 cm Mel Lobo MD Work Phone: [facility] 08-08-2021 11:04-0400 Body weight 76.2 kg Mel Lobo MD Work Phone: [facility] 08-08-2021 11:04-0400 Diastolic blood pressure 72 mm[Hg] Mel Lobo MD Work Phone: [facility] 08-08-2021 11:04-0400 Heart rate 54 /min Mel Lobo MD Work Phone: [facility] 08-08-2021 11:04-0400 SaO2% (BldA) [Mass fraction] 99 % Mel Lobo MD Work Phone: [facility] 08-08-2021 11:04-0400 Systolic blood pressure 134 mm[Hg] Mel Lobo MD Work Phone: [facility] 08-08-2021 08:09-0400 Diastolic blood pressure 74 mm[Hg] Abhishek Alegria MD Work Phone: [facility] 08-08-2021 08:09-0400 Systolic blood pressure 143 mm[Hg] Abhishek Alegria MD Work Phone: [facility] 08-08-2021 08:05-0400 Body height 177.8 cm Abhishek Alegria MD Work Phone: [facility] 08-08-2021 08:05-0400 Body weight 76.2 kg Abhishek Alegria MD Work Phone: [facility] 08-08-2021 08:05-0400 Heart rate 61 /min Abhishek Alegria MD Work Phone: [facility] 08-08-2021 08:05-0400 Respiratory rate 18 /min Abhishek Alegria MD Work Phone: [facility] 08-08-2021 08:05-0400 SaO2% (BldA) [Mass fraction] 98 % Abhishek Alegria MD Work Phone: [facility] 06-07-2021 07:35-0400 Body height 172.72 cm Tara Hayes [facility]; [facility] Work Phone: 06-07-2021 07:35-0400 Body mass index (BMI) [Ratio] 26.82 kg/m2 Tara Hayes [facility]; [facility] Work Phone: 06-07-2021 07:35-0400 Body surface area Derived from formula 1.94 m2 Tara Hayes [facility]; [facility] Work Phone: 06-07-2021 07:35-0400 Body temperature 97.3 [degF] Tara Hayes [facility] Com[facility]; [facility] Work Phone: Comment on above: Method: Infrared 06-07-2021 07:35-0400 Body weight 80 kg Tara Hayes [facility]; [facility] Work Phone: 06-07-2021 07:35-0400 Diastolic blood pressure 80 mm[Hg] Tara Hayes [facility]; [facility] Work Phone: Comment on above: Patient Position: Sitting; Cuff Location : Left Arm; Cuff Size: Standard 06-07-2021 07:35-0400 Heart rate 54 /min Tara Hayes [facility]; [facility] Work Phone: Comment on above: Pattern: Regular 06-07-2021 07:35-0400 Respiratory rate 16 /min Tara Hayes [facility] Com[facility]; [facility] Work Phone: Comment on above: Pattern: Unlabored 06-07-2021 07:35-0400 SaO2% (BldA) [Mass fraction] 97 % Tara Hayes [facility]; [facility] Work Phone: Comment on above: Room air 06-07-2021 07:35-0400 Systolic blood pressure 132 mm[Hg] Tara Hayes [facility]; [facility] Work Phone: Comment on above: Patient Position: Sitting; Cuff Location : Left Arm; Cuff Size: Standard 04-30-2021 08:19-0500 Body height 177.[address] Hilton Jay Work Phone: [facility] Work Phone: 04-30-2021 08:19-0500 Body weight 80.[address] Hilton Jay Work Phone: [facility] Work Phone: 04-30-2021 07:19-0500 Body height 177.[address] Hilton Jay Work Phone: [facility] Work Phone: 04-30-2021 07:19-0500 Body weight 80.[address] Hilton Jay Work Phone: [facility] Work Phone: 04-27-2021 09:49-0500 Body mass index (BMI) [Ratio] 25.5 kg/m2 Dr. Hilton Jay Work Phone: [facility] Work Phone: 04-27-2021 08:49-0500 Body mass index (BMI) [Ratio] 25.5 kg/m2 Dr. Hilton Jay Work Phone: [facility] Work Phone: 03-15-2021 06:23-0500 Body weight 80.[address] Hilton Jay Work Phone: [facility] Work Phone: 03-15-2021 06:23-0500 Diastolic blood pressure 77 mm[Hg] Dr. Hilton Jay Work Phone: [facility] Work Phone: 03-15-2021 06:23-0500 Heart rate 54 /min Dr. Hilton Jay Work Phone: [facility] Work Phone: 03-15-2021 06:23-0500 Respiratory rate 16 /min Dr. Hilton Jay Work Phone: [facility] Work Phone: 03-15-2021 06:23-0500 SaO2% (BldA) [Mass fraction] 100 % Dr. Hilton Jay Work Phone: [facility] Work Phone: 03-15-2021 06:23-0500 Systolic blood pressure 146 mm[Hg] Dr. Hilton Jay Work Phone: [facility] Work Phone: 12-06-2020 09:22-0400 Body height 172.72 cm Viviana Mohan LPN [facility]; [facility] Work Phone: 12-06-2020 09:22-0400 Body mass index (BMI) [Ratio] 26.82 kg/m2 Viviana Mohan LPN [facility]; [facility] Work Phone: 12-06-2020 09:22-0400 Body surface area Derived from formula 1.94 m2 Viviana Mohan LPN [facility]; [facility] Work Phone: 12-06-2020 09:22-0400 Body temperature 97.1 [degF] Viviana Mohan LPN [facility]; [facility] Work Phone: Comment on above: Method: Temporal 12-06-2020 09:22-0400 Body weight 80 kg Viviana Mohan LPN [facility]; [facility] Work Phone: 12-06-2020 09:22-0400 Diastolic blood pressure 78 mm[Hg] Viviana Ibrahim [facility]; [facility] Work Phone: Comment on above: Patient Position: Sitting; Cuff Location : Left Arm; Cuff Size: Standard 12-06-2020 09:22-0400 Heart rate 56 /min Viviana Mohan [facility]; [facility] Work Phone: Comment on above: Pattern: Regular 12-06-2020 09:22-0400 Respiratory rate 16 /min Viviana Mohan [facility]; [facility] Work Phone: Comment on above: Pattern: Unlabored 12-06-2020 09:22-0400 SaO2% (BldA) [Mass fraction] 97 % Viviana Mohan [facility]; [facility] Work Phone: Comment on above: Room air 12-06-2020 09:22-0400 Systolic blood pressure 140 mm[Hg] Viviana Mohan [facility]; [facility] Work Phone: Comment on above: Patient Position: Sitting; Cuff Location : Left Arm; Cuff Size: Standard 06-05-2020 08:13-0400 BMI (Body Mass Index) 26.61 kg/m2 Tara Hayes [facility]; [facility] Work Phone: 06-05-2020 08:13-0400 Body Temperature 96.8 [degF] Tara Hayes [facility] Comprehens[facility]; [facility] Work Phone: Comment on above: Method: Infrared 06-05-2020 08:130400 Body weight 79.39 kg Tara Hayes [facility]; [facility] Work Phone: 06-05-2020 08:13-0400 BP Diastolic 82 mm[Hg] Tara Hayes [facility]; [facility] Work Phone: Comment on above: Patient Position: Sitting; Cuff Location : Left Arm; Cuff Size: Standard 06-05-2020 08:13-0400 BP Systolic 138 mm[Hg] Tara Iglesiasius [facility]; [facility] Work Phone: Comment on above: Patient Position: Sitting; Cuff Location : Left Arm; Cuff Size: Standard 06-05-2020 08:13-0400 BSA (Body Surface Area) 1.93 m2 Tara Hayes CMA [facility]; [facility] Work Phone: 06-05-2020 08:13-0400 Height 172.72 cm Tara Hayes CMA [facility]; [facility] Work Phone: 06-05-2020 08:13-0400 Pulse (Heart Rate) 63 /min Tara Hayes CMA [facility]; [facility] Work Phone: Comment on above: Pattern: Regular 06-05-2020 08:13-0400 Pulse Oximetry 98 % Hilton Jay [facility]; [facility] Work Phone: Comment on above: Room air 06-05-2020 08:13-0400 Respiratory Rate 18 /min Tara Hayes CMA [facility]; [facility] Work Phone: Comment on above: Pattern: Unlabored 06-05-2020 08:13-0400 SaO2% (BldA) [Mass fraction] 98 % Tara Hayes [employer] [facility]; [facility] Work Phone: Comment on above: Room air 03-14-2020 10:34-0500 Body mass index (BMI) [Ratio] 25.1 kg/m2 Dr. Hilton Jay Work Phone: [facility] Work Phone: 12-06-2019 08:52-0400 BMI (Body Mass Index) 26.61 kg/m2 Tara Hayes CMA [facility] Work Phone: 12-06-2019 08:52-0400 Body Temperature 96.6 [degF] Tara Hayes CMA [facility] Work Phone: Comment on above: Method: Infrared 12-06-2019 08:52-0400 Body weight 79.39 kg Tara Hayes CMA [facility] Work Phone: 12-06-2019 08:52-0400 BP Diastolic 62 mm[Hg] Tara Hayes [employer] [facility] Work Phone: Comment on above: Patient Position: Sitting; Cuff Location : Left Arm; Cuff Size: Standard 12-06-2019 08:52-0400 BP Systolic 103 mm[Hg] Tara Hayes [employer] [facility] Work Phone: Comment on above: Patient Position: Sitting; Cuff Location : Left Arm; Cuff Size: Standard 12-06-2019 08:52-0400 BSA (Body Surface Area) 1.93 m2 Tara Hayes [employer] [facility] Work Phone: 12-06-2019 08:52-0400 Height 172.72 cm Tara Hayes [employer] [facility] Work Phone: 12-06-2019 08:52-0400 Pulse (Heart Rate) 57 /min Tara Hayes CMA [facility] Work Phone: Comment on above: Pattern: Regular 12-06-2019 08:52-0400 Pulse Oximetry 100 % [facility] Work Phone: Comment on above: Room air 12-06-2019 08:52-0400 Respiratory Rate 18 /min Tara Hayes CMA [facility] Work Phone: Comment on above: Pattern: Unlabored 12-06-2019 08:52-0400 SaO2% (BldA) [Mass fraction] 100 % Tara Hayes [employer] [facility]; [facility] Work Phone: Comment on above: Room air 10-04-2019 12:09-0400 BMI (Body Mass Index) 26.76 kg/m2 Tara Hayes [employer] [facility] Work Phone: 10-04-2019 12:09-0400 Body Temperature 97.1 [degF] Tara Hayes CMA [facility] Work Phone: Comment on above: Method: Temporal 10-04-2019 12:09-0400 Body weight 79.84 kg Tara Hayes CMA [facility] Work Phone: 10-04-2019 12:09-0400 BP Diastolic 82 mm[Hg] Tara Hayes [facility] Work Phone: Comment on above: Patient Position: Sitting; Cuff Location : Left Arm; Cuff Size: Standard 10-04-2019 12:09-0400 BP Systolic 140 mm[Hg] Tara Hayes [facility] Work Phone: Comment on above: Patient Position: Sitting; Cuff Location : Left Arm; Cuff Size: Standard 10-04-2019 12:09-0400 BSA (Body Surface Area) 1.94 m2 Tara Hayes [facility] Work Phone: 10-04-2019 12:09-0400 Height 172.72 cm Tara Hayes [facility] Work Phone: 10-04-2019 12:09-0400 Pulse (Heart Rate) 65 /min Tara Hayes [employer] [facility] Work Phone: Comment on above: Pattern: Regular 10-04-2019 12:09-0400 Pulse Oximetry 97 % [facility] Work Phone: Comment on above: Room air 10-04-2019 12:09-0400 Respiratory Rate 16 /min Tara Hayes [facility] Com[facility] Work Phone: Comment on above: Pattern: Unlabored 10-04-2019 12:09-0400 SaO2% (BldA) [Mass fraction] 97 % Tara Hayes [facility]; [facility] Work Phone: Comment on above: Room air 09-13-2019 10:08-0400 BMI (Body Mass Index) 27.22 kg/m2 [facility] Work Phone: 09-13-2019 10:08-0400 Body Temperature 96.9 [degF] [facility] Work Phone: Comment on above: Method: Infrared 09-13-2019 10:08-0400 Body weight 81.2 kg [facility] Work Phone: 09-13-2019 10:08-0400 BP Diastolic 82 mm[Hg] [place] [place] [facility] Internal Medicine Work Phone: Comment on above: Patient Position: Sitting; Cuff Location : Left Arm; Cuff Size: Standard 09-13-2019 10:08-0400 BP Systolic 140 mm[Hg] Lamine Dallas LPN [facility] Internal Medicine Work Phone: Comment on above: Patient Position: Sitting; Cuff Location : Left Arm; Cuff Size: Standard 09-13-2019 10:08-0400 BSA (Body Surface Area) 1.95 m2 Lamine Dallas LPN [facility] Internal Medicine Work Phone: 09-13-2019 10:08-0400 Height 172.72 cm Lamine Dallas LPN [facility] Internal Medicine Work Phone: 09-13-2019 10:08-0400 Pulse (Heart Rate) 63 /min Lamine Dallas LPN [facility] Work Phone: Comment on above: Pattern: Regular 09-13-2019 10:08-0400 Pulse Oximetry 98 % Hilton [facility] Internal Medicine Work Phone: Comment on above: Room air 09-13-2019 10:08-0400 Respiratory Rate 16 /min Lamine Dallas LPN [facility] Internal Medicine Work Phone: Comment on above: Pattern: Unlabored 09-13-2019 10:08-0400 SaO2% (BldA) [Mass fraction] 98 % Lamine Dallas LPN [facility]; [facility] Work Phone: Comment on above: Room air 03-03-2019 09:39-0500 BMI (Body Mass Index) 27.22 kg/m2 Lamine Dallas LPN [facility] Internal Medicine Work Phone: 03-03-2019 09:39-0500 Body Temperature 97.6 [degF] Lamine Dallas LPN [facility] Internal Medicine Work Phone: Comment on above: Method: Temporal 03-03-2019 09:39-0500 Body weight 81.2 kg Lamine Dallas LPN [facility] Internal Medicine Work Phone: 03-03-2019 09:39-0500 BP Diastolic 68 mm[Hg] Lamine Dallas LPN [facility] Internal Medicine Work Phone: Comment on above: Patient Position: Sitting; Cuff Location : Left Arm; Cuff Size: Standard 03-03-2019 09:39-0500 BP Systolic 118 mm[Hg] Lamine Dallas LPN [facility] Work Phone: Comment on above: Patient Position: Sitting; Cuff Location : Left Arm; Cuff Size: Standard 03-03-2019 09:39-0500 BSA (Body Surface Area) 1.95 m2 Lamine Dallas LPN [facility] Work Phone: 03-03-2019 09:39-0500 Height 172.72 cm Lamine Dallas LPN [facility] Internal Medicine Work Phone: 03-03-2019 09:39-0500 Pulse (Heart Rate) 71 /min Lamine Dallas LPN [facility] Work Phone: Comment on above: Pattern: Regular 03-03-2019 09:39-0500 Pulse Oximetry 98 % Hilton Jay [facility] Work Phone: Comment on above: Room air 03-03-2019 09:39-0500 Respiratory Rate 16 /min Lamine Dallas LPN [facility] Work Phone: Comment on above: Pattern: Unlabored 03-03-2019 09:39-0500 SaO2% (BldA) [Mass fraction] 98 % [facility] Work Phone: Comment on above: Room air 02-15-2019 15:27-0500 BMI (Body Mass Index) 27.52 kg/m2 Tara Hayes [facility] Work Phone: 02-15-2019 15:27-0500 Body Temperature 96.4 [degF] Tara Hayes [facility] Work Phone: Comment on above: Method: Temporal 02-15-2019 15:27-0500 Body weight 82.1 kg Tara Hayes [facility] Work Phone: 02-15-2019 15:27-0500 BP Diastolic 70 mm[Hg] Tara Hayes [facility] Work Phone: Comment on above: Patient Position: Sitting; Cuff Location : Left Arm; Cuff Size: Standard 02-15-2019 15:27-0500 BP Systolic 128 mm[Hg] Tara Hayes CMA [facility] Work Phone: Comment on above: Patient Position: Sitting; Cuff Location : Left Arm; Cuff Size: Standard 02-15-2019 15:27-0500 BSA (Body Surface Area) 1.96 m2 Tara Hayes CMA [facility] Work Phone: 02-15-2019 15:27-0500 Height 172.72 cm Tara Hayes CMA [facility] Work Phone: 02-15-2019 15:27-0500 Pulse (Heart Rate) 59 /min Tara Hayes CMA [facility] Work Phone: Comment on above: Pattern: Regular 02-15-2019 15:27-0500 Pulse Oximetry 98 % Hilton Jay [facility] Work Phone: Comment on above: Room air 02-15-2019 15:27-0500 Respiratory Rate 18 /min Tara Hayes CMA [facility] Work Phone: Comment on above: Pattern: Unlabored 02-15-2019 15:27-0500 SaO2% (BldA) [Mass fraction] 98 % Tara Hayes CMA [facility]; [facility] Work Phone: Comment on above: Room air 01-20-2019 08:52-0500 BMI (Body Mass Index) 26.91 kg/m2 Tara Hayes CMA [facility] Work Phone: 01-20-2019 08:52-0500 Body Temperature 98.2 [degF] Tara Hayes CMA [facility] Work Phone: Comment on above: Method: Temporal 01-20-2019 08:52-0500 Body weight 80.29 kg Tara Hayes CMA [facility] Work Phone: 01-20-2019 08:52-0500 BP Diastolic 66 mm[Hg] Tara Hayes CMA [facility] Work Phone: Comment on above: Patient Position: Sitting; Cuff Location : Left Arm; Cuff Size: Standard 01-20-2019 08:52-0500 BP Systolic 120 mm[Hg] Tara Hayes [facility] Work Phone: Comment on above: Patient Position: Sitting; Cuff Location : Left Arm; Cuff Size: Standard 01-20-2019 08:52-0500 BSA (Body Surface Area) 1.94 m2 Tara Hayes [facility] Work Phone: 01-20-2019 08:52-0500 Height 172.72 cm Tara Hayes [facility] [facility] Work Phone: 01-20-2019 08:52-0500 Pulse (Heart Rate) 54 /min Tara Hayes CMA [facility] Work Phone: Comment on above: Pattern: Regular 01-20-2019 08:52-0500 Pulse Oximetry 96 % Hilton [place] [facility] Work Phone: Comment on above: Room air 01-20-2019 08:52-0500 Respiratory Rate 16 /min Tara Hayes CMA [facility] Work Phone: Comment on above: Pattern: Unlabored 01-20-2019 08:52-0500 SaO2% (BldA) [Mass fraction] 96 % Tara Hayes [facility]; [facility] Work Phone: Comment on above: Room air 10-15-2018 10:50-0400 BMI (Body Mass Index) 27.06 kg/m2 Rosanne Enrique RN [facility] Work Phone: 10-15-2018 10:50-0400 Body weight 80.74 kg Rosanne Enrique RN [facility] Work Phone: 10-15-2018 10:50-0400 BP Diastolic 80 mm[Hg] Rosanne Enrique RN [facility] Work Phone: Comment on above: Patient Position: Sitting; Cuff Location : Left Arm; Cuff Size: Large 10-15-2018 10:50-0400 BP Systolic 128 mm[Hg] Rosanne Enrique RN [facility] Work Phone: Comment on above: Patient Position: Sitting; Cuff Location : Left Arm; Cuff Size: Large 10-15-2018 10:50-0400 BSA (Body Surface Area) 1.95 m2 Rosanne Enrique RN [facility] Work Phone: 10-15-2018 10:50-0400 Height 172.72 cm Rosanne Enrique RN [facility] Work Phone: 10-15-2018 10:50-0400 Pulse (Heart Rate) 51 /min Rosanne Enrique RN [facility] Work Phone: Comment on above: Pattern: Regular 10-15-2018 10:50-0400 Pulse Oximetry 98 % Hilton Jay [facility] Work Phone: Comment on above: Room air 10-15-2018 10:50-0400 Respiratory Rate 18 /min Rosanne Enrique RN [facility] Work Phone: Comment on above: Pattern: Unlabored 10-15-2018 10:50-0400 SaO2% (BldA) [Mass fraction] 98 % Rosanne Enrique RN [facility]; [facility] Work Phone: Comment on above: Room air 04-29-2018 10:52-0500 BMI (Body Mass Index) 27.52 kg/m2 Carina [facility] Internal Medicine Work Phone: 04-29-2018 10:52-0500 Body Temperature 97.2 [degF] Carina [facility] Internal Medicine Work Phone: Comment on above: Method: Temporal 04-29-2018 10:52-0500 Body weight 82.1 kg Carina Montgomery [facility] Internal Medicine Work Phone: 04-29-2018 10:52-0500 BP Diastolic 76 mm[Hg] Carina [facility] Medicine Work Phone: Comment on above: Patient Position: Sitting; Cuff Location : Left Arm; Cuff Size: Standard 04-29-2018 10:52-0500 BP Systolic 132 mm[Hg] Carina Montgomery [facility] Internal Medicine Work Phone: Comment on above: Patient Position: Sitting; Cuff Location : Left Arm; Cuff Size: Standard 04-29-2018 10:52-0500 BSA (Body Surface Area) 1.96 m2 Carina Montgomery [facility] Work Phone: 04-29-2018 10:52-0500 Height 172.72 cm Carina Montgomery [facility] Work Phone: 04-29-2018 10:52-0500 Pulse (Heart Rate) 54 /min Carina Montgomery [facility] Work Phone: Comment on above: Pattern: Regular 04-29-2018 10:52-0500 Pulse Oximetry 99 % Hilton [facility] Internal Medicine Work Phone: Comment on above: Room air 04-29-2018 10:52-0500 Respiratory Rate 18 /min Carina Montgomery [facility] Work Phone: Comment on above: Pattern: Unlabored 04-29-2018 10:52-0500 SaO2% (BldA) [Mass fraction] 99 % Carina Montgomery [facility]; [facility] Work Phone: Comment on above: Room air 04-29-2018 10:52-0500 Weight 82.1 kg Hilton Jay [facility] Work Phone: 04-23-2018 10:53-0500 BMI (Body Mass Index) 27.52 kg/m2 Carina Montgomery [facility] Work Phone: 04-23-2018 10:53-0500 Body Temperature 98.5 [degF] Carina Montgomery [facility] Work Phone: Comment on above: Method: Temporal 04-23-2018 10:53-0500 Body weight 82.1 kg Carina Montgomery [facility] Work Phone: 04-23-2018 10:53-0500 BP Diastolic 60 mm[Hg] Carina Montgomery [facility] Work Phone: Comment on above: Patient Position: Sitting; Cuff Location : Left Arm; Cuff Size: Standard 04-23-2018 10:53-0500 BP Systolic 110 mm[Hg] Carina Montgomery [facility] Work Phone: Comment on above: Patient Position: Sitting; Cuff Location : Left Arm; Cuff Size: Standard 04-23-2018 10:53-0500 BSA (Body Surface Area) 1.96 m2 Carina Montgomery [facility] Work Phone: 04-23-2018 10:53-0500 Height 172.72 cm Carina Montgomery [facility] Internal Medicine Work Phone: 04-23-2018 10:53-0500 Pulse (Heart Rate) 78 /min Carina Montgomery [facility] Work Phone: Comment on above: Pattern: Regular 04-23-2018 10:53-0500 Pulse Oximetry 97 % Hilton Jay [facility] Work Phone: Comment on above: Room air 04-23-2018 10:53-0500 Respiratory Rate 17 /min Carina Rosslear [facility] Work Phone: Comment on above: Pattern: Unlabored 04-23-2018 10:53-0500 SaO2% (BldA) [Mass fraction] 97 % Carina [facility]; [facility] Work Phone: Comment on above: Room air 04-23-2018 10:53-0500 Weight 82.1 kg Hilton Jay [facility] Work Phone: 01-05-2018 10:08-0500 BMI (Body Mass Index) 27.52 kg/m2 Emy Stoll RN [facility] Work Phone: 01-05-2018 10:08-0500 Body Temperature 98.4 [degF] Emy Stoll RN [facility] Work Phone: Comment on above: Method: Temporal 01-05-2018 10:08-0500 Body weight 82.1 kg Emy Stoll RN [facility] Work Phone: 01-05-2018 10:08-0500 BP Diastolic 88 mm[Hg] Emy Stoll RN [facility] Work Phone: Comment on above: Patient Position: Sitting; Cuff Location : Left Arm; Cuff Size: Standard 01-05-2018 10:08-0500 BP Systolic 132 mm[Hg] Emy Stoll RN [facility] Work Phone: Comment on above: Patient Position: Sitting; Cuff Location : Left Arm; Cuff Size: Standard 01-05-2018 10:08-0500 BSA (Body Surface Area) 1.96 m2 Emy Stoll RN [facility] Work Phone: 01-05-2018 10:08-0500 Height 172.72 cm Emy Stoll RN [facility] Work Phone: 01-05-2018 10:08-0500 Pulse (Heart Rate) 72 /min Emy Stoll RN [facility] Work Phone: Comment on above: Pattern: Regular 01-05-2018 10:08-0500 Pulse Oximetry 98 % Hilton [place] [facility] Work Phone: Comment on above: Room air 01-05-2018 10:08-0500 Respiratory Rate 18 /min Emy Stoll RN [facility] Work Phone: Comment on above: Pattern: Unlabored 01-05-2018 10:08-0500 SaO2% (BldA) [Mass fraction] 98 % Emy Stoll RN [facility]; [facility] Work Phone: Comment on above: Room air 01-05-2018 10:08-0500 Weight 82.1 kg Hilton Jay [facility] Work Phone: 11-27-2017 08:17-0400 BMI (Body Mass Index) 27.52 kg/m2 Rosanne Enrique RN [facility] Work Phone: Comment on above: DR. Mejía and had a glaucoma test done hearing w[place] 11-27-2017 08:17-0400 Body weight 82.1 kg Rosanne Enrique RN [facility] Work Phone: Comment on above: DR. Mejía and had a glaucoma test done hearing wn 11-27-2017 08:17-0400 BP Diastolic 78 mm[Hg] Rosanne Enrique RN [facility] Work Phone: Comment on above: Patient Position: Sitting; Cuff Location : Right Arm; Cuff Size: Standard DR. Mejía and had a glaucoma test donehearing wnl 11-27-2017 08:17-0400 BP Systolic 122 mm[Hg] Rosanne Enrique RN [facility] Work Phone: Comment on above: Patient Position: Sitting; Cuff Location : Right Arm; Cuff Size: Standard DR. Mejía and had a glaucoma test donehearing [facility] [facility] 11-27-2017 08:17-0400 BSA (Body Surface Area) 1.96 m2 Rosanne Enrique RN [facility] Work Phone: Comment on above: DR. Mejía and had a glaucoma test done hearing [facility] 11-27-2017 08:17-0400 Height 172.72 cm Rosanne Enrique RN [facility] Work Phone: Comment on above: DR. Mejía and had a glaucoma test done hearing [facility] 11-27-2017 08:17-0400 Pulse (Heart Rate) 52 /min Rosanne Enrique RN [facility] Work Phone: Comment on above: Pattern: Regular DR. Mejía and had a glaucoma test donehearing [facility] [facility] 11-27-2017 08:17-0400 Pulse Oximetry 98 % Hilton [facility] Internal Medicine Work Phone: Comment on above: Room air DR. Mejía and had a glaucoma test donehearing [facility] [facility] 11-27-2017 08:17-0400 Respiratory Rate 18 /min Rosanne Enrique RN [facility] Internal Medicine Work Phone: Comment on above: Pattern: Unlabored DR. Mejía and had a glaucoma test donehearing [facility] [facility] 11-27-2017 08:17-0400 SaO2% (BldA) [Mass fraction] 98 % Rosanne Enrique RN [facility]; [facility] Work Phone: Comment on above: Room air DR. Mejía and had a glaucoma test donehearing [facility] [facility] 11-27-2017 08:17-0400 Weight 82.1 kg Hilton Jay [facility] Internal Medicine Work Phone: Comment on above: DR. Mejía and had a glaucoma test done hearing [facility] 04-17-2017 08:43-0500 BMI (Body Mass Index) 28.19 kg/m2 Rosanne Enrique RN [facility] Work Phone: 04-17-2017 08:43-0500 Body weight 84.09 kg Rosanne Enrique RN [facility] Work Phone: 04-17-2017 08:43-0500 BP Diastolic 78 mm[Hg] Rosanne Enrique RN [facility] Work Phone: Comment on above: Patient Position: Sitting; Cuff Location : Left Arm; Cuff Size: Large 04-17-2017 08:43-0500 BP Systolic 124 mm[Hg] Rosanne Enrique RN [facility] Work Phone: Comment on above: Patient Position: Sitting; Cuff Location : Left Arm; Cuff Size: Large 04-17-2017 08:43-0500 BSA (Body Surface Area) 1.98 m2 Rosanne Enrique RN [facility] Work Phone: 04-17-2017 08:43-0500 Height 172.72 cm Rosanne Enrique RN [facility] Work Phone: 04-17-2017 08:43-0500 Pulse (Heart Rate) 53 /min Rosanne Enrique RN [facility] Work Phone: Comment on above: Pattern: Regular 04-17-2017 08:43-0500 Pulse Oximetry 97 % Hilton Jay [facility] Work Phone: Comment on above: Room air 04-17-2017 08:43-0500 Respiratory Rate 18 /min Rosanne Enrique RN [facility] Work Phone: Comment on above: Pattern: Unlabored 04-17-2017 08:43-0500 SaO2% (BldA) [Mass fraction] 97 % Rosanne Enrique RN [facility]; [facility] Work Phone: Comment on above: Room air 04-17-2017 08:43-0500 Weight 84.09 kg Hilton Jay [facility] Work Phone: 11-20-2016 [id number] BMI (Body Mass Index) 27.52 kg/m2 Rosanne Enrique RN [facility] Work Phone: Comment on above: hearingDr. Mejía and had a glaucoma te st done 11-20-2016 10:11-0400 Body Temperature 97.7 [degF] Rosanne Enrique RN [facility] Work Phone: Comment on above: Method: Temporal hearingDr. Alfonzo a nd had a glaucoma test done 11-20-2016 10:11-0400 Body weight 82.1 kg Rosanne Enrique RN [facility] Work Phone: Comment on above: hearingDr. Mejía and had a glaucoma te st done 11-20-2016 10:11-0400 BP Diastolic 78 mm[Hg] Rosanne Enrique RN [facility] Medicine Work Phone: Comment on above: Patient Position: Sitting; Cuff Location : Left Arm; Cuff Size: Standard hearingDr. Alfonzo a nd had a glaucoma test done 11-20-2016 10:11-0400 BP Systolic 138 mm[Hg] Rosanne Enrique RN [facility] Medicine Work Phone: Comment on above: Patient Position: Sitting; Cuff Location : Left Arm; Cuff Size: Standard hearingDr. Alfonzo a nd had a glaucoma test done 11-20-2016 10:11-0400 BSA (Body Surface Area) 1.96 m2 Rosanne Enrique RN [facility] Medicine Work Phone: Comment on above: hearingDr. Mejía and had a glaucoma te st done 11-20-2016 10:11-0400 Height 172.72 cm Rosanne Enrique RN [facility] Medicine Work Phone: Comment on above: hearingDr. Mejía and had a glaucoma te st done 11-20-2016 10:11-0400 Pulse (Heart Rate) 56 /min Rosanne Enrique RN [facility] Work Phone: Comment on above: Pattern: Regular hearingDr. Alfonzo a nd had a glaucoma test done 11-20-2016 10:11-0400 Pulse Oximetry 95 % Hilton [facility] Medicine Work Phone: Comment on above: Room air hearingDr. Alfonzo a nd had a glaucoma test done 11-20-2016 10:11-0400 Respiratory Rate 18 /min Rosanne Enrique RN [facility] Work Phone: Comment on above: Pattern: Unlabored hearingDr. Alfonzo a nd had a glaucoma test done 11-20-2016 10:11-0400 SaO2% (BldA) [Mass fraction] 95 % Rosanne Enrique RN [facility]; [facility] Work Phone: Comment on above: Room air hearingDrMorena Mejía a nd had a glaucoma test done 11-20-2016 10:11-0400 Weight 82.1 kg Hilton [place] [facility] Work Phone: Comment on above: hearingDr. Mejía and had a glaucoma te st done 10-14-2016 09:58-0400 BMI (Body Mass Index) 28.01 kg/m2 Rosanne Enrique RN [facility] Work Phone: 10-14-2016 09:58-0400 Body weight 83.58 kg Rosanne Enrique RN [facility] Work Phone: 10-14-2016 09:58-0400 BP Diastolic 78 mm[Hg] Rosanne Enrique RN [facility] Work Phone: Comment on above: Patient Position: Sitting; Cuff Location : Left Arm; Cuff Size: Standard 10-14-2016 09:58-0400 BP Systolic 118 mm[Hg] Rosanne Enrique RN [facility] Work Phone: Comment on above: Patient Position: Sitting; Cuff Location : Left Arm; Cuff Size: Standard 10-14-2016 09:58-0400 BSA (Body Surface Area) 1.97 m2 Rosanne Enrique RN [facility] Work Phone: 10-14-2016 09:58-0400 Height 172.72 cm Rosanne Enrique RN [facility] Work Phone: 10-14-2016 09:58-0400 Pulse (Heart Rate) 60 /min Rosanne Enrique RN [facility] Work Phone: Comment on above: Pattern: Regular 10-14-2016 09:58-0400 Pulse Oximetry 98 % Hilton [place] [facility] Work Phone: Comment on above: Room air 10-14-2016 09:58-0400 Respiratory Rate 18 /min Rosanne Enrique RN [facility] Work Phone: Comment on above: Pattern: Unlabored 10-14-2016 09:58-0400 SaO2% (BldA) [Mass fraction] 98 % Rosnane Enrique RN [facility]; [facility] Work Phone: Comment on above: Room air 10-14-2016 09:58-0400 Weight 83.58 kg Hilton Jay [facility] Work Phone: 08-08-2016 07:41-0400 BMI (Body Mass Index) 28.01 kg/m2 Rosanne Enrique RN [facility] Work Phone: 08-08-2016 07:41-0400 Body weight 83.58 kg Rosanne Enrique RN [facility] Work Phone: 08-08-2016 07:41-0400 BP Diastolic 82 mm[Hg] Rosanne Enrique RN [facility] Work Phone: Comment on above: Patient Position: Sitting; Cuff Location : Left Arm; Cuff Size: Large 08-08-2016 07:41-0400 BP Systolic 122 mm[Hg] Rosanne Enrique RN [facility] Work Phone: Comment on above: Patient Position: Sitting; Cuff Location : Left Arm; Cuff Size: Large 08-08-2016 07:41-0400 BSA (Body Surface Area) 1.97 m2 Rosanne Enrique RN [facility] Work Phone: 08-08-2016 07:41-0400 Height 172.72 cm Rosanne Enrique RN [facility] Work Phone: 08-08-2016 07:41-0400 Pulse (Heart Rate) 58 /min Rosanne Enrique RN [facility] Work Phone: Comment on above: Pattern: Regular 08-08-2016 07:41-0400 Pulse Oximetry 98 % Hilton Jay [facility] Work Phone: Comment on above: Room air 08-08-2016 07:41-0400 Respiratory Rate 18 /min Rosanne Enrique RN [facility] Work Phone: Comment on above: Pattern: Unlabored 08-08-2016 07:41-0400 SaO2% (BldA) [Mass fraction] 98 % Rosanne Enrique RN [facility]; [facility] Work Phone: Comment on above: Room air 08-08-2016 07:41-0400 Weight 83.58 kg Hilton Jay [facility] Work Phone: 11-13-2015 09:15-0400 BMI (Body Mass Index) 28.17 kg/m2 Rosanne Enrique RN [facility] Work Phone: Comment on above: hearing wnlDr. Audrey and had aglaucoma t est done 11-13-2015 09:15-0400 Body weight 84.03 kg Rosanne Enrique RN [facility] Work Phone: Comment on above: hearing wnlDr. Audrey and had aglaucoma t est done 11-13-2015 09:15-0400 BP Diastolic 82 mm[Hg] Rosanne Enrique RN [facility] Work Phone: Comment on above: Patient Position: Sitting; Cuff Location : Left Arm; Cuff Size: Large hearing wnlDr. Audrey and had aglaucoma test done 11-13-2015 09:15-0400 BP Systolic 158 mm[Hg] Rosanne Enrique RN [facility] Work Phone: Comment on above: Patient Position: Sitting; Cuff Location : Left Arm; Cuff Size: Large hearing wnlDr. Audrey and had aglaucoma test done 11-13-2015 09:15-0400 BSA (Body Surface Area) 1.98 m2 Rosanne Enrique RN [facility] Work Phone: Comment on above: hearing wnlDr. Audrey and had aglaucoma t est done 11-13-2015 09:15-0400 Height 172.72 cm Rosanne Enrique RN [facility] Work Phone: Comment on above: hearing wnlDr. Audrey and had aglaucoma t est done 11-13-2015 09:15-0400 Pulse (Heart Rate) 60 /min Rosanne Enrique RN [facility] Work Phone: Comment on above: Pattern: Regular hearing wnlDr. Audrey and had aglaucoma test done 11-13-2015 09:15-0400 Pulse Oximetry 98 % Hilton [facility] Work Phone: Comment on above: Room air hearing wnlDr. Aaronig and had aglaucoma test done 11-13-2015 09:15-0400 Respiratory Rate 18 /min Rosanne Enrique RN [facility] Work Phone: Comment on above: Pattern: Unlabored hearing wnlDr. Ventura and had aglaucoma test done 11-13-2015 09:15-0400 SaO2% (BldA) [Mass fraction] 98 % Rosanne Enrique RN [facility]; [facility] Work Phone: Comment on above: Room air hearing wnlDr. Ventura and had aglaucoma test done 11-13-2015 09:15-0400 Weight 84.03 kg Hilton Jay [facility] Work Phone: Comment on above: hearing wnlDr. Ventura and had aglaucoma t est done 11-08-2015 09:08-0400 BMI (Body Mass Index) 28.28 kg/m2 Brenda Slarb [employer] [facility] Work Phone: 11-08-2015 09:08-0400 Body Temperature 97.9 [degF] Brenda Slarb [employer] [facility] Work Phone: 11-08-2015 09:08-0400 Body weight 84.37 kg Brenda Slarb [employer] [facility] Work Phone: 11-08-2015 09:08-0400 BP Diastolic 82 mm[Hg] Brenda Slarb [employer] [facility] Work Phone: Comment on above: Patient Position: Sitting; Cuff Location : Left Arm; Cuff Size: Standard 11-08-2015 09:08-0400 BP Systolic 124 mm[Hg] Brenda Slarb [employer] [facility] Work Phone: Comment on above: Patient Position: Sitting; Cuff Location : Left Arm; Cuff Size: Standard 11-08-2015 09:08-0400 BSA (Body Surface Area) 1.98 m2 Brenda Slarb [employer] [facility] Work Phone: 11-08-2015 09:08-0400 Height 172.72 cm Brenda Slarb [employer] [facility] Work Phone: 11-08-2015 09:08-0400 Pulse (Heart Rate) 63 /min Brenda Knapp LPN [facility] Work Phone: Comment on above: Pattern: Regular 11-08-2015 09:08-0400 Pulse Oximetry 98 % Hilton Jay [facility] Work Phone: Comment on above: Room air 11-08-2015 09:08-0400 Respiratory Rate 18 /min Brenda Knapp LPN [facility] Work Phone: Comment on above: Pattern: Unlabored 11-08-2015 09:08-0400 SaO2% (BldA) [Mass fraction] 98 % Brenda Knapp LPN [facility]; [facility] Work Phone: Comment on above: Room air 11-08-2015 09:08-0400 Weight 84.37 kg Hilton Jay [facility] Work Phone: 10-16-2015 09:46-0400 BMI (Body Mass Index) 28.28 kg/m2 Rosanne Enrique RN [facility] Work Phone: 10-16-2015 09:46-0400 Body weight 84.37 kg Rosanne Enrique RN [facility] Work Phone: 10-16-2015 09:46-0400 BP Diastolic 82 mm[Hg] Rosanne Enrique RN [facility] Work Phone: Comment on above: Patient Position: Sitting; Cuff Location : Left Arm; Cuff Size: Standard 10-16-2015 09:46-0400 BP Systolic 138 mm[Hg] Rosanne Enrique RN [facility] Work Phone: Comment on above: Patient Position: Sitting; Cuff Location : Left Arm; Cuff Size: Standard 10-16-2015 09:46-0400 BSA (Body Surface Area) 1.98 m2 Rosanne Enrique RN [facility] Work Phone: 10-16-2015 09:46-0400 Height 172.72 cm Rosanne Enrique RN [facility] Work Phone: 10-16-2015 09:46-0400 Pulse (Heart Rate) 83 /min Rosanne Enrique RN [facility] Work Phone: Comment on above: Pattern: Regular 10-16-2015 09:46-0400 Pulse Oximetry 98 % [facility] Work Phone: Comment on above: Room air 10-16-2015 09:46-0400 Respiratory Rate 18 /min Rosanne Enrique RN [facility] Work Phone: Comment on above: Pattern: Unlabored 10-16-2015 09:46-0400 SaO2% (BldA) [Mass fraction] 98 % Rosanne Enrique RN [facility]; [facility] Work Phone: Comment on above: Room air 10-16-2015 09:46-0400 Weight 84.37 kg Hilton [facility] Work Phone: 08-17-2015 08:59-0400 BMI (Body Mass Index) 26.65 kg/m2 Rosanne Enrique RN [facility] Work Phone: 08-17-2015 08:59-0400 Body weight 79.49 kg Rosanne Enrique RN [facility] Work Phone: 08-17-2015 08:59-0400 BP Diastolic 72 mm[Hg] Rosanne Enrique RN [facility] Work Phone: Comment on above: Patient Position: Sitting; Cuff Location : Left Arm; Cuff Size: Standard 08-17-2015 08:59-0400 BP Systolic 130 mm[Hg] Rosanne Enrique RN [facility] Work Phone: Comment on above: Patient Position: Sitting; Cuff Location : Left Arm; Cuff Size: Standard 08-17-2015 08:59-0400 BSA (Body Surface Area) 1.93 m2 Rosanne Enrique RN [facility] Work Phone: 08-17-2015 08:59-0400 Height 172.72 cm Rosanne Enrique RN [facility] Work Phone: 08-17-2015 08:59-0400 Pulse (Heart Rate) 56 /min Rosanne Enrique RN [facility] Work Phone: Comment on above: Pattern: Regular 08-17-2015 08:59-0400 Pulse Oximetry 97 % Hilton Jay [facility] Work Phone: Comment on above: Room air 08-17-2015 08:59-0400 Respiratory Rate 18 /min Rosanne Enrique RN [facility] Work Phone: Comment on above: Pattern: Unlabored 08-17-2015 08:59-0400 SaO2% (BldA) [Mass fraction] 97 % Rosanne Enrique RN [facility]; [facility] Work Phone: Comment on above: Room air 08-17-2015 08:59-0400 Weight 79.49 kg Hilton Jay [facility] Work Phone: 11-07-2014 14:23-0400 BMI (Body Mass Index) 26.65 kg/m2 Elizabeth Jeronimo [facility] Work Phone: 11-07-2014 14:23-0400 Body Temperature 97.8 [degF] Elizabeth Jeronimo [employer] [facility] Work Phone: Comment on above: Method: Temporal 11-07-2014 14:23-0400 Body weight 79.49 kg Elizabeth Jeronimo CMA [facility] Work Phone: 11-07-2014 14:23-0400 BP Diastolic 70 mm[Hg] Elizabeth Jeronimo [employer] [facility] Work Phone: Comment on above: Patient Position: Sitting; Cuff Location : Left Arm; Cuff Size: Standard 11-07-2014 14:23-0400 BP Systolic 130 mm[Hg] Elizabeth Jeronimo [employer]ITARIAN [facility] Work Phone: Comment on above: Patient Position: Sitting; Cuff Location : Left Arm; Cuff Size: Standard 11-07-2014 14:23-0400 BSA (Body Surface Area) 1.93 m2 Elizabeth Jeronimo [facility] Work Phone: 11-07-2014 14:23-0400 Height 172.72 cm Elizabeth Jeronimo [employer]IT[employer] [facility] Work Phone: 11-07-2014 14:23-0400 Pulse (Heart Rate) 60 /min Elizabteh Jeronimo CMA [facility] Work Phone: Comment on above: Pattern: Regular 11-07-2014 14:23-0400 Respiratory Rate 16 /min Elizabeth Jeronimo CMA [facility] Work Phone: Comment on above: Pattern: Unlabored 11-07-2014 14:23-0400 Weight 79.49 kg Hilton Jay [facility] Work Phone: 12-29-2013 10:20-0500 BMI (Body Mass Index) 26.65 kg/m2 Coby Sarmad ESCUDERO [facility] Work Phone: 12-29-2013 10:20-0500 Body Temperature 97.8 [degF] Coby Sarmad ESCUDERO [facility] Work Phone: Comment on above: Method: Oral 12-29-2013 10:20-0500 Body weight 79.49 kg Coby Carterolivier ESCUDERO [facility] Work Phone: 12-29-2013 10:20-0500 BP Diastolic 78 mm[Hg] Coby Carterolivier ESCUDERO [facility] Work Phone: Comment on above: Patient Position: Sitting; Cuff Location : Left Arm; Cuff Size: Standard 12-29-2013 10:20-0500 BP Systolic 124 mm[Hg] Coby Carterolivier ESCUDERO [facility] Work Phone: Comment on above: Patient Position: Sitting; Cuff Location : Left Arm; Cuff Size: Standard 12-29-2013 10:20-0500 BSA (Body Surface Area) 1.93 m2 Coby Sarmad ESCUDERO [facility] Work Phone: 12-29-2013 10:20-0500 Height 172.72 cm Coby Carterolivier ESCUDERO [facility] Work Phone: 12-29-2013 10:20-0500 Pulse (Heart Rate) 57 /min Coby Carterolivier ESCUDERO [facility] Work Phone: Comment on above: Pattern: Regular 12-29-2013 10:20-0500 Pulse Oximetry 98 % Hilton Jay [facility] Work Phone: Comment on above: Room air 12-29-2013 10:20-0500 Respiratory Rate 16 /min Coby Bañuelos LPN [facility] Work Phone: 12-29-2013 10:20-0500 SaO2% (BldA) [Mass fraction] 98 % Coby Bañuelos LPN [facility]; [facility] Work Phone: Comment on above: Room air 12-29-2013 10:20-0500 Weight 79.49 kg Hilton Jay [facility] Work Phone: 08-11-2013 09:37-0400 BMI (Body Mass Index) 25.85 kg/m2 Elizabeth Jeronimo [facility] Work Phone: 08-11-2013 09:37-0400 Body Temperature 97.9 [degF] Elizabeth Jeronimo CMA [facility] Work Phone: Comment on above: Method: Oral 08-11-2013 09:37-0400 Body weight 77.11 kg Elizabeth Jeronimo CMA [facility] Work Phone: 08-11-2013 09:37-0400 BP Diastolic 70 mm[Hg] Elizabeth Jeronimo [employer]IT[employer] [facility] Work Phone: Comment on above: Patient Position: Sitting; Cuff Location : Left Arm; Cuff Size: Standard 08-11-2013 09:37-0400 BP Systolic 122 mm[Hg] Elizabeth Jeronimo CMA [facility] Work Phone: Comment on above: Patient Position: Sitting; Cuff Location : Left Arm; Cuff Size: Standard 08-11-2013 09:37-0400 BSA (Body Surface Area) 1.91 m2 Elizabeth Jeronimo [facility] Work Phone: 08-11-2013 09:37-0400 Height 172.72 cm Elizabeth Jeronimo CMA [facility] Work Phone: 08-11-2013 09:37-0400 Pulse (Heart Rate) 54 /min Elizabeth Jeronimo CMA [facility] Work Phone: Comment on above: Pattern: Regular 08-11-2013 09:37-0400 Pulse Oximetry 96 % Hilton Jay [facility] Work Phone: Comment on above: Room air 08-11-2013 09:37-0400 Respiratory Rate 16 /min Elizabeth Jeronimo CMA [facility] Work Phone: Comment on above: Pattern: Unlabored 08-11-2013 09:37-0400 SaO2% (BldA) [Mass fraction] 96 % Elizabeth Jreonimo CMA [facility]; [facility] Work Phone: Comment on above: Room air 08-11-2013 09:37-0400 Weight 77.11 kg Hilton Jay [facility] Work Phone: 04-21-2013 15:52-0500 BMI (Body Mass Index) 28.28 kg/m2 Elizabeth Jeronimo CMA [facility] Work Phone: 04-21-2013 15:52-0500 Body Temperature 98.2 [degF] Elizabeth Jeronimo CMA [facility] Work Phone: Comment on above: Method: Oral 04-21-2013 15:52-0500 Body weight 84.37 kg Elizabeth Jeronimo CMA [facility] Work Phone: 04-21-2013 15:52-0500 BP Diastolic 80 mm[Hg] Elizabeth Jeronimo CMA [facility] Work Phone: Comment on above: Patient Position: Sitting; Cuff Location : Left Arm; Cuff Size: Standard 04-21-2013 15:52-0500 BP Systolic 138 mm[Hg] Elizabeth Jeronimo CMA [facility] Work Phone: Comment on above: Patient Position: Sitting; Cuff Location : Left Arm; Cuff Size: Standard 04-21-2013 15:52-0500 BSA (Body Surface Area) 1.98 m2 Elizabeth Jeronimo CMA [facility] Work Phone: 04-21-2013 15:52-0500 Height 172.72 cm Elizabeth Jeronimo CMA [facility] Work Phone: 04-21-2013 15:52-0500 Pulse (Heart Rate) 72 /min Elizabeth Jeronimo CMA [facility] Work Phone: Comment on above: Pattern: Regular 04-21-2013 15:52-0500 Pulse Oximetry 97 % Hilton [facility] Work Phone: Comment on above: Room air 04-21-2013 15:52-0500 Respiratory Rate 16 /min Elizabeth Jeronimo CMA [facility] Work Phone: Comment on above: Pattern: Unlabored 04-21-2013 15:52-0500 SaO2% (BldA) [Mass fraction] 97 % Elizabeth Jeronimo [facility]; [facility] Work Phone: Comment on above: Room air 04-21-2013 15:52-0500 Weight 84.37 kg Hilton Jay [facility] Work Phone: 09-02-2012 12:30-0400 BMI (Body Mass Index) 26.91 kg/m2 Kisha [facility] Work Phone: 09-02-2012 12:30-0400 Body Temperature 97.5 [degF] [facility]isha [facility] Work Phone: 09-02-2012 12:30-0400 Body weight 80.29 kg Kisha [facility] Work Phone: 09-02-2012 12:30-0400 BP Diastolic 86 mm[Hg] Kisha [facility] Work Phone: Comment on above: Patient Position: Sitting; Cuff Location : Left Arm; Cuff Size: Large 09-02-2012 12:30-0400 BP Systolic 132 mm[Hg] Kisha [facility] Work Phone: Comment on above: Patient Position: Sitting; Cuff Location : Left Arm; Cuff Size: Large 09-02-2012 12:30-0400 BSA (Body Surface Area) 1.94 m2 Kisha [facility] Work Phone: 09-02-2012 12:30-0400 Height 172.72 cm Kisha [facility]on [facility] Work Phone: 09-02-2012 12:30-0400 Pulse (Heart Rate) 60 /min Kisha Jameson [facility] Work Phone: Comment on above: Pattern: Regular 09-02-2012 12:30-0400 Respiratory Rate 16 /min Kisha [facility] Work Phone: Comment on above: Pattern: Unlabored 09-02-2012 12:30-0400 Weight 80.29 kg Hilton Jay [facility] Work Phone: 06-02-2012 14:47-0400 BMI (Body Mass Index) 28.28 kg/m2 Kisha [facility]on [facility] Work Phone: 06-02-2012 14:47-0400 Body Temperature 98.1 [degF] [facility]isha [facility] Work Phone: 06-02-2012 14:47-0400 Body weight 84.37 kg Kisha [facility] Work Phone: 06-02-2012 14:47-0400 BP Diastolic 68 mm[Hg] Kisha [facility]on [facility] Work Phone: Comment on above: Patient Position: Sitting; Cuff Location : Left Arm; Cuff Size: Standard 06-02-2012 14:47-0400 BP Systolic 126 mm[Hg] Kisha [facility] Work Phone: Comment on above: Patient Position: Sitting; Cuff Location : Left Arm; Cuff Size: Standard 06-02-2012 14:47-0400 BSA (Body Surface Area) 1.98 m2 Kisha Jameson [facility] Work Phone: 06-02-2012 14:47-0400 Height 172.72 cm Kisha Jameson [facility] Work Phone: 06-02-2012 14:47-0400 Pulse (Heart Rate) 64 /min Kisha Jameson [facility] Work Phone: Comment on above: Pattern: Regular 06-02-2012 14:47-0400 Respiratory Rate 16 /min Kisha Jameson [facility] Work Phone: Comment on above: Pattern: Unlabored 06-02-2012 14:47-0400 Weight 84.37 kg Hilton Jay [facility] Work Phone: 03-11-2012 11:19-0500 BMI (Body Mass Index) 28.68 kg/m2 Coby Bañuelos KOTA [facility] Work Phone: 03-11-2012 11:19-0500 Body Temperature 98 [degF] Coby Bañuelos LPN [facility] Work Phone: Comment on above: Method: Oral 03-11-2012 11:19-0500 Body weight 86.18 kg Coby Bañuelos LPN [facility] Work Phone: 03-11-2012 11:19-0500 BP Diastolic 82 mm[Hg] Coby Bañuelos [employer] [facility] Work Phone: Comment on above: Patient Position: Sitting; Cuff Location : Left Arm; Cuff Size: Standard 03-11-2012 11:19-0500 BP Systolic 136 mm[Hg] Coby Bañuelos LPN [facility] Work Phone: Comment on above: Patient Position: Sitting; Cuff Location : Left Arm; Cuff Size: Standard 03-11-2012 11:19-0500 BSA (Body Surface Area) 2.01 m2 Coby Bañuelos [employer] [facility] Work Phone: 03-11-2012 11:19-0500 Height 173.35 cm Coby Bañuelos LPN [facility] Work Phone: 03-11-2012 11:19-0500 Pulse (Heart Rate) 80 /min Coby Bañuelos LPN [facility] Work Phone: Comment on above: Pattern: Regular 03-11-2012 11:19-0500 Pulse Oximetry 98 % Hilton [facility] Work Phone: Comment on above: Room air 03-11-2012 11:19-0500 Respiratory Rate 18 /min Coby Bañuelos LPN [facility] Work Phone: 03-11-2012 11:19-0500 SaO2% (BldA) [Mass fraction] 98 % Coby Bañuelos LPN [facility]; [facility] Work Phone: Comment on above: Room air 03-11-2012 11:19-0500 Weight 86.18 kg Hilton Jay [facility] Work Phone: 07-02-2011 13:52-0400 BMI (Body Mass Index) 28.68 kg/m2 Kisha [facility] Work Phone: 07-02-2011 13:52-0400 Body Temperature 98.1 [degF] Kisha [facility]on [facility] Work Phone: 07-02-2011 13:52-0400 Body weight 86.18 kg Kisha Trino [facility] Work Phone: 07-02-2011 13:52-0400 BP Diastolic 72 mm[Hg] Kisha Trino [facility] Work Phone: Comment on above: Patient Position: Sitting; Cuff Location : Left Arm; Cuff Size: Standard 07-02-2011 13:52-0400 BP Systolic 120 mm[Hg] Kisha Jameson [facility] Work Phone: Comment on above: Patient Position: Sitting; Cuff Location : Left Arm; Cuff Size: Standard 07-02-2011 13:52-0400 BSA (Body Surface Area) 2.01 m2 Kisha Jameson [facility] Work Phone: 07-02-2011 13:52-0400 Height 173.35 cm Kisha Jameson [facility] Work Phone: 07-02-2011 13:52-0400 Pulse (Heart Rate) 64 /min Kisha Jameson [facility] Work Phone: Comment on above: Pattern: Regular 07-02-2011 13:52-0400 Respiratory Rate 16 /min Kisha Jameson [facility] Work Phone: Comment on above: Pattern: Unlabored 07-02-2011 13:52-0400 Weight 86.18 kg Hilton Jay [facility] Work Phone: 10-24-2010 11:16-0400 BMI (Body Mass Index) 28.38 kg/m2 Coby Bañuelos [facility] Work Phone: 10-24-2010 11:16-0400 Body Temperature 98.7 [degF] Cboy Bañuelos K[facility] Work Phone: Comment on above: Method: Oral 10-24-2010 11:16-0400 Body weight 85.28 kg Coby Bañuelos [facility] Work Phone: 10-24-2010 11:16-0400 BP Diastolic 78 mm[Hg] Coby Bañuelos K[facility] Work Phone: Comment on above: Patient Position: Sitting; Cuff Location : Left Arm; Cuff Size: Standard 10-24-2010 11:16-0400 BP Systolic 120 mm[Hg] Coby Bañuelos KOTA [facility] Work Phone: Comment on above: Patient Position: Sitting; Cuff Location : Left Arm; Cuff Size: Standard 10-24-2010 11:16-0400 BSA (Body Surface Area) 2 m2 Coby Bañuelos K[facility] Work Phone: 10-24-2010 11:16-0400 Height 173.35 cm Coby Bañuelos [facility] Work Phone: 10-24-2010 11:16-0400 Pulse (Heart Rate) 58 /min Coby Bañuelos LPN [facility] Work Phone: Comment on above: Pattern: Regular 10-24-2010 11:16-0400 Pulse Oximetry 97 % Hilton [facility] Work Phone: Comment on above: Room air 10-24-2010 11:16-0400 Respiratory Rate 16 /min Coby Bañuelos LPN [facility] Work Phone: Comment on above: Pattern: Unlabored 10-24-2010 11:16-0400 SaO2% (BldA) [Mass fraction] 97 % Coby Bañuelos [facility]; [facility] Work Phone: Comment on above: Room air 10-24-2010 11:16-0400 Weight 85.28 kg Hilton Jay [facility] Work Phone: 07-11-2010 11:23-0400 BMI (Body Mass Index) 28.38 kg/m2 Kisha Jameson [facility] Work Phone: 07-11-2010 11:23-0400 Body Temperature 98.6 [degF] Kisha Jameson [facility] Work Phone: 07-11-2010 11:23-0400 Body weight 85.28 kg Kisha Jameson [facility] Work Phone: 07-11-2010 11:23-0400 BP Diastolic 74 mm[Hg] Kisha Jameson [facility] Work Phone: Comment on above: Patient Position: Sitting; Cuff Location : Left Arm; Cuff Size: Standard 07-11-2010 11:23-0400 BP Systolic 122 mm[Hg] Kisha Jameson [facility] Work Phone: Comment on above: Patient Position: Sitting; Cuff Location : Left Arm; Cuff Size: Standard 07-11-2010 11:23-0400 BSA (Body Surface Area) 2 m2 Kisha Jameson [facility] Work Phone: 07-11-2010 11:23-0400 Height 173.35 cm Kisha Jameson [facility] Work Phone: 07-11-2010 11:23-0400 Pulse (Heart Rate) 62 /min Kisha Jameson [facility] Work Phone: Comment on above: Pattern: Regular 07-11-2010 11:23-0400 Respiratory Rate 16 /min Kisha Jameson [facility] Work Phone: Comment on above: Pattern: Unlabored 07-11-2010 11:23-0400 Weight 85.28 kg Hilton Jay [facility] Work Phone: 06-25-2010 09:11-0400 BMI (Body Mass Index) 28.07 kg/m2 Kisha Jameson [facility] Work Phone: 06-25-2010 09:11-0400 Body Temperature 97.5 [degF] Kisha Jameson [facility] Work Phone: 06-25-2010 09:11-0400 Body weight 84.37 kg Kisha Jameson [facility] Work Phone: 06-25-2010 09:11-0400 BP Diastolic 84 mm[Hg] Kisha Jameson [facility] Work Phone: Comment on above: Patient Position: Sitting; Cuff Location : Left Arm; Cuff Size: Standard 06-25-2010 09:11-0400 BP Systolic 126 mm[Hg] Kisha [facility] Work Phone: Comment on above: Patient Position: Sitting; Cuff Location : Left Arm; Cuff Size: Standard 06-25-2010 09:11-0400 BSA (Body Surface Area) 1.99 m2 Kisha Jameson [facility] Work Phone: 06-25-2010 09:11-0400 Height 173.35 cm Kisha [facility] Work Phone: 06-25-2010 09:11-0400 Pulse (Heart Rate) 76 /min Kisha Jameson [facility] Work Phone: Comment on above: Pattern: Regular 06-25-2010 09:11-0400 Respiratory Rate 16 /min Kisha Jameson [facility] Work Phone: Comment on above: Pattern: Unlabored 06-25-2010 09:11-0400 Weight 84.37 kg Hilton Jay [facility] Work Phone: 06-22-2010 11:47-0400 BMI (Body Mass Index) 28.07 kg/m2 Coby Bañuelos K[facility] Work Phone: 06-22-2010 11:47-0400 Body Temperature 97.5 [degF] Coby Bañuelos LPN [facility] Work Phone: Comment on above: Method: Oral 06-22-2010 11:47-0400 Body weight 84.37 kg Coby Bañuelos [employer] [facility] Work Phone: 06-22-2010 11:47-0400 BP Diastolic 72 mm[Hg] Coby Bañuelos [employer] [facility] Work Phone: Comment on above: Patient Position: Sitting; Cuff Location : Left Arm; Cuff Size: Standard 06-22-2010 11:47-0400 BP Systolic 122 mm[Hg] Coby Bañuelos [employer] [facility] Work Phone: Comment on above: Patient Position: Sitting; Cuff Location : Left Arm; Cuff Size: Standard 06-22-2010 11:47-0400 BSA (Body Surface Area) 1.99 m2 Coby Bañuelos LPN [facility] Work Phone: 06-22-2010 11:47-0400 Height 173.35 cm Coby Bañuelos LPN [facility] Work Phone: 06-22-2010 11:47-0400 Pulse (Heart Rate) 58 /min Coby Bañuelos LPN [facility] Work Phone: Comment on above: Pattern: Regular 06-22-2010 11:47-0400 Respiratory Rate 15 /min Coby Bañuelos [facility] Work Phone: Comment on above: Pattern: Unlabored 06-22-2010 11:47-0400 Weight 84.37 kg [facility] Internal Medicine Work Phone: 05-08-2010 10:03-0400 BMI (Body Mass Index) 28.07 kg/m2 Kisha [facility] Internal Medicine Work Phone: 05-08-2010 10:03-0400 Body Temperature 97.2 [degF] Kisha [facility] Internal Medicine Work Phone: 05-08-2010 10:03-0400 Body weight 84.37 kg Kisha Trino [facility] Internal Medicine Work Phone: 05-08-2010 10:03-0400 BP Diastolic 74 mm[Hg] Kisha Trino [facility] Internal Medicine Work Phone: Comment on above: Patient Position: Sitting; Cuff Location : Left Arm; Cuff Size: Large 05-08-2010 10:03-0400 BP Systolic 112 mm[Hg] Kisha Trino [facility] Internal Medicine Work Phone: Comment on above: Patient Position: Sitting; Cuff Location : Left Arm; Cuff Size: Large 05-08-2010 10:03-0400 BSA (Body Surface Area) 1.99 m2 Kisha [facility] Internal Medicine Work Phone: 05-08-2010 10:03-0400 Height 173.35 cm Kisha Jameson [facility] Internal Medicine Work Phone: 05-08-2010 10:03-0400 Pulse (Heart Rate) 60 /min Kisha Trino [facility] Work Phone: Comment on above: Pattern: Regular 05-08-2010 10:03-0400 Respiratory Rate 16 /min Kisha Trino [facility] Internal Medicine Work Phone: Comment on above: Pattern: Unlabored 05-08-2010 10:03-0400 Weight 84.37 kg [facility] Internal Medicine Work Phone: 02-22-2010 10:05-0500 Body weight 81.19 kg Rosanne Enrique RN [facility] Work Phone: 02-22-2010 10:05-0500 BP Diastolic 82 mm[Hg] Rosanne Enrique RN [facility] Work Phone: Comment on above: Patient Position: Sitting; Cuff Location : Left Arm; Cuff Size: Standard 02-22-2010 10:05-0500 BP Systolic 138 mm[Hg] Rosanne Enrique RN [facility] Work Phone: Comment on above: Patient Position: Sitting; Cuff Location : Left Arm; Cuff Size: Standard 02-22-2010 10:05-0500 Pulse (Heart Rate) 68 /min Rosanne Enrique RN [facility] Work Phone: Comment on above: Pattern: Regular 02-22-2010 10:05-0500 Respiratory Rate 20 /min Rosanne Enrique RN [facility] Work Phone: Comment on above: Pattern: Unlabored 02-22-2010 10:05-0500 Weight 81.19 kg [facility] Internal Medicine Work Phone: 12-29-2009 13:08-0400 Body weight 81.19 kg Priscila Sanchez LPN [facility] Work Phone: 12-29-2009 13:08-0400 BP Diastolic 80 mm[Hg] Priscila Ortati [employer] [facility] Work Phone: Comment on above: Patient Position: Sitting; Cuff Location : Left Arm; Cuff Size: Standard 12-29-2009 13:08-0400 BP Systolic 120 mm[Hg] Priscila Hluszti [employer] [facility] Work Phone: Comment on above: Patient Position: Sitting; Cuff Location : Left Arm; Cuff Size: Standard 12-29-2009 13:08-0400 Pulse (Heart Rate) 68 /min Priscila Hluszti [employer] [facility] Work Phone: Comment on above: Pattern: Regular 12-29-2009 13:08-0400 Respiratory Rate 16 /min Priscila Ortadavid ESCUDERO [facility] Work Phone: Comment on above: Pattern: Unlabored 12-29-2009 13:08-0400 Weight 81.19 kg [facility] Internal Medicine Work Phone: 08-11-2009 07:52-0400 Body Temperature 97.1 [degF] [facility] Internal Medicine Work Phone: Comment on above: Method: Oral 08-11-2009 07:52-0400 Body weight 83.07 kg [facility] Internal Medicine Work Phone: 08-11-2009 07:52-0400 BP Diastolic 64 mm[Hg] [facility] Internal Medicine Work Phone: Comment on above: Patient Position: Sitting; Cuff Location : Left Arm; Cuff Size: Standard 08-11-2009 07:52-0400 BP Systolic 124 mm[Hg] [facility] Internal Medicine Work Phone: Comment on above: Patient Position: Sitting; Cuff Location : Left Arm; Cuff Size: Standard 08-11-2009 07:52-0400 Pulse (Heart Rate) 68 /min [facility] Internal Medicine Work Phone: Comment on above: Pattern: Regular 08-11-2009 07:52-0400 Respiratory Rate 16 /min [facility] Internal Medicine Work Phone: Comment on above: Pattern: Unlabored 08-11-2009 07:52-0400 Weight 83.07 kg [facility] Internal Medicine Work Phone: 06-29-2009 13:19-0400 Body Temperature 97 [degF] Coby Bañuelos LPN [facility] Work Phone: Comment on above: Method: Oral 06-29-2009 13:19-0400 Body weight 84.37 kg Coby Bañuelos LPN [facility] Work Phone: 06-29-2009 13:19-0400 BP Diastolic 72 mm[Hg] Coby Bañuelos LPN [facility] Work Phone: Comment on above: Patient Position: Sitting; Cuff Location : Left Arm; Cuff Size: Standard 06-29-2009 13:19-0400 BP Systolic 126 mm[Hg] Coby Bañuelos [facility] Internal Medicine Work Phone: Comment on above: Patient Position: Sitting; Cuff Location : Left Arm; Cuff Size: Standard 06-29-2009 13:19-0400 Pulse (Heart Rate) 64 /min Coby Bañuelos K[facility] Work Phone: Comment on above: Pattern: Regular 06-29-2009 13:19-0400 Respiratory Rate 16 /min Coby Bañuelos LPN [facility] Work Phone: Comment on above: Pattern: Unlabored 06-29-2009 13:19-0400 Weight 84.37 kg [facility] Internal Medicine Work Phone: 05-30-2009 11:41-0400 Body Temperature 97 [degF] Kisha [facility] Internal Medicine Work Phone: 05-30-2009 11:41-0400 Body weight 84.37 kg Kisha Jameson [facility] Internal Medicine Work Phone: 05-30-2009 11:41-0400 BP Diastolic 80 mm[Hg] [facility] Internal Medicine Work Phone: Comment on above: Patient Position: Sitting; Cuff Location : Left Arm; Cuff Size: Standard 05-30-2009 11:41-0400 BP Systolic 128 mm[Hg] Kisha Jameson [facility] Internal Medicine Work Phone: Comment on above: Patient Position: Sitting; Cuff Location : Left Arm; Cuff Size: Standard 05-30-2009 11:41-0400 Pulse (Heart Rate) 60 /min Kisha Jameson [facility] Work Phone: Comment on above: Pattern: Regular 05-30-2009 11:41-0400 Respiratory Rate 18 /min Kisha Jameson [facility] Internal Medicine Work Phone: Comment on above: Pattern: Unlabored 05-30-2009 11:41-0400 Weight 84.37 kg [facility] Internal Medicine Work Phone: 11-09-2008 08:20-0400 Body Temperature 97.9 [degF] [facility] Internal Medicine Work Phone: Comment on above: Method: Oral 11-09-2008 08:20-0400 Body weight [address] [facility] Internal Medicine Work Phone: 11-09-2008 08:20-0400 BP Diastolic 78 mm[Hg] [facility] Internal Medicine Work Phone: Comment on above: Patient Position: Sitting; Cuff Location : Left Arm; Cuff Size: Standard 11-09-2008 08:20-0400 BP Systolic 136 mm[Hg] [facility] Internal Medicine Work Phone: Comment on above: Patient Position: Sitting; Cuff Location : Left Arm; Cuff Size: Standard 11-09-2008 08:20-0400 Head Circumference 0 cm [facility] Internal Medicine Work Phone: 11-09-2008 08:20-0400 Head Occipital-frontal circumference [address] [facility] Internal [facility]; [facility] Work Phone: 11-09-2008 08:20-0400 Height [address] [facility] Internal Medicine Work Phone: 11-09-2008 08:20-0400 Pulse (Heart Rate) 60 /min [facility] Internal Medicine Work Phone: Comment on above: Pattern: Regular 11-09-2008 08:20-0400 Pulse Oximetry 97 % [facility] Internal Medicine Work Phone: Comment on above: Room air 11-09-2008 08:20-0400 Respiratory Rate 18 /min [facility] Internal Medicine Work Phone: Comment on above: Pattern: Unlabored 11-09-2008 08:20-0400 SaO2% (BldA) [Mass fraction] 97 % [facility]; [facility] Work Phone: Comment on above: Room air 11-09-2008 08:20-0400 Weight 0 kg Hilton Jay [facility] Work Phone: 10-10-2008 17:07-0400 BMI (Body Mass Index) 28.44 kg/m2 Rosanne Enrique RN [facility] Work Phone: 10-10-2008 17:07-0400 Body weight 88 kg Rosanne Enrique RN [facility] Work Phone: 10-10-2008 17:07-0400 BP Diastolic 90 mm[Hg] Rosanne Enrique RN [facility] Work Phone: Comment on above: Patient Position: Sitting; Cuff Location : Left Arm; Cuff Size: Large 10-10-2008 17:07-0400 BP Systolic 136 mm[Hg] Rosanne Enrique RN [facility] Work Phone: Comment on above: Patient Position: Sitting; Cuff Location : Left Arm; Cuff Size: Large 10-10-2008 17:07-0400 BSA (Body Surface Area) 2.04 m2 Rosanne Enrique RN [facility] Work Phone: 10-10-2008 17:07-0400 Head Circumference 0 cm Hilton Jay [facility] Work Phone: 10-10-2008 17:07-0400 Head Occipital-frontal circumference 0 cm Rosanne Enrique RN [facility]; [facility] Work Phone: 10-10-2008 17:07-0400 Height 175.9 cm Rosanne Enrique RN [facility] Work Phone: 10-10-2008 17:07-0400 Pulse (Heart Rate) 84 /min Rosanne Enrique RN [facility] Work Phone: Comment on above: Pattern: Regular 10-10-2008 17:07-0400 Respiratory Rate 20 /min Rosanne Enrique RN [facility] Work Phone: Comment on above: Pattern: Unlabored 10-10-2008 17:07-0400 Weight 88 kg Hilton Jay [facility] Work Phone: 06-14-2008 10:31-0400 BMI (Body Mass Index) 28.44 kg/m2 Kisha Jameson [facility] Medicine Work Phone: 06-14-2008 10:31-0400 Body Temperature 97.6 [degF] Kisha [facility]on [facility] Medicine Work Phone: Comment on above: Method: Undefined 06-14-2008 10:31-0400 Body weight 88 kg Kisha Jameson [facility] Medicine Work Phone: 06-14-2008 10:31-0400 BP Diastolic 90 mm[Hg] Kisha Jameson [facility] Medicine Work Phone: Comment on above: Patient Position: Sitting; Cuff Location : Left Arm; Cuff Size: Large 06-14-2008 10:31-0400 BP Systolic 140 mm[Hg] Kisha Jameson [facility] Medicine Work Phone: Comment on above: Patient Position: Sitting; Cuff Location : Left Arm; Cuff Size: Large 06-14-2008 10:31-0400 BSA (Body Surface Area) 2.04 m2 Kisha Jameson [facility] Work Phone: 06-14-2008 10:31-0400 Head Circumference 0 cm [facility] Medicine Work Phone: 06-14-2008 10:31-0400 Head Occipital-frontal circumference 0 cm Kisha Jameson [facility] Internal Medicine Work Phone: 06-14-2008 10:31-0400 Height 175.9 cm Kisha [facility] Work Phone: 06-14-2008 10:31-0400 Pulse (Heart Rate) 64 /min Kisha Jameson [facility] Internal Medicine Work Phone: Comment on above: Pattern: Regular 06-14-2008 10:31-0400 Respiratory Rate 18 /min Kisha Jameson [facility] Medicine Work Phone: Comment on above: Pattern: Undefined 06-14-2008 10:31-0400 Weight 88 kg Hilton Jay [facility] Medicine Work Phone: 11-20-2007 10:07-0400 Body Temperature 96.9 [degF] Rosanne Enrique RN [facility] Work Phone: Comment on above: Method: Oral 11-20-2007 10:07-0400 Body weight 87.54 kg Rosanne Enrique RN [facility] Work Phone: 11-20-2007 10:07-0400 BP Diastolic 82 mm[Hg] Rosanne Enrique RN [facility] Work Phone: Comment on above: Patient Position: Sitting; Cuff Location : Left Arm; Cuff Size: Standard 11-20-2007 10:07-0400 BP Systolic 138 mm[Hg] Rosanne Enrique RN [facility] Work Phone: Comment on above: Patient Position: Sitting; Cuff Location : Left Arm; Cuff Size: Standard 11-20-2007 10:07-0400 Head Circumference 0 cm Hilton [facility] Work Phone: 11-20-2007 10:07-0400 Head Occipital-frontal circumference 0 cm Rosanne Enrique RN [facility]; [facility] Work Phone: 11-20-2007 10:07-0400 Height 0 cm Rosanne Enrique RN [facility] Work Phone: 11-20-2007 10:07-0400 Pulse (Heart Rate) 80 /min Rosanne Enrique RN [facility] Work Phone: Comment on above: Pattern: Regular 11-20-2007 10:07-0400 Respiratory Rate 20 /min Rosanne Enrique RN [facility] Work Phone: Comment on above: Pattern: Unlabored 11-20-2007 10:07-0400 Weight 87.54 kg Hilton Jay [facility] Work Phone: 06-16-2007 16:12-0400 Body Temperature 98 [degF] Kisha Jameson [facility] Work Phone: Comment on above: Method: Undefined 06-16-2007 16:120400 Body weight 87.54 kg Kisha Jameson [facility] Work Phone: 06-16-2007 16:12-0400 BP Diastolic 78 mm[Hg] Kisha Jameson [facility] Medicine Work Phone: Comment on above: Patient Position: Sitting; Cuff Location : Left Arm; Cuff Size: Standard 06-16-2007 16:12-0400 BP Systolic 140 mm[Hg] Kisha Jameson [facility] Work Phone: Comment on above: Patient Position: Sitting; Cuff Location : Left Arm; Cuff Size: Standard 06-16-2007 16:12-0400 Head Circumference 0 cm [facility] Medicine Work Phone: 06-16-2007 16:12-0400 Head Occipital-frontal circumference 0 cm [facility]isha [facility]; [facility] Work Phone: 06-16-2007 16:12-0400 Height 0 cm Kisha [facility] Work Phone: 06-16-2007 16:12-0400 Pulse (Heart Rate) 60 /min Kisha Jameson [facility] Work Phone: Comment on above: Pattern: Regular 06-16-2007 16:12-0400 Respiratory Rate 16 /min [facility]isha [facility] Work Phone: Comment on above: Pattern: Undefined 06-16-2007 16:12-0400 Weight 87.54 kg Hilton [facility] Work Phone: 04-08-2007 08:17-0500 Body Temperature 97.4 [degF] Coby Bañuelos [facility] Work Phone: Comment on above: Method: Oral 04-08-2007 08:17-0500 Body weight 89.36 kg Coby Bañuelos K[facility] Work Phone: 04-08-2007 08:17-0500 BP Diastolic 82 mm[Hg] Coby Bañuelos KOTA [facility] Work Phone: Comment on above: Patient Position: Sitting; Cuff Location : Left Arm; Cuff Size: Standard 04-08-2007 08:17-0500 BP Systolic 124 mm[Hg] Coby Sarmad ESCUDERO [facility] Work Phone: Comment on above: Patient Position: Sitting; Cuff Location : Left Arm; Cuff Size: Standard 04-08-2007 08:17-0500 Head Circumference 0 cm Hilton [facility] Work Phone: 04-08-2007 08:17-0500 Head Occipital-frontal circumference 0 cm Cobyava Bañuelos LPN [facility]; [facility] Work Phone: 04-08-2007 08:17-0500 Height 0 cm Coby Sarmad ESCUDERO [facility] Work Phone: 04-08-2007 08:17-0500 Pulse (Heart Rate) 66 /min Coby Sarmad ESCUDERO [facility] Work Phone: Comment on above: Pattern: Regular 04-08-2007 08:17-0500 Pulse Oximetry 98 % Hilton [facility] Work Phone: Comment on above: Room air 04-08-2007 08:17-0500 Respiratory Rate 16 /min Coby Sarmad ESCUDERO [facility] Work Phone: Comment on above: Pattern: Unlabored 04-08-2007 08:17-0500 SaO2% (BldA) [Mass fraction] 98 % Cobyava Bañuelos LPN [facility]; [facility] Work Phone: Comment on above: Room air 04-08-2007 08:17-0500 Weight 89.36 kg Hilton [facility] Work Phone: 04-06-2007 08:22-0500 Body Temperature 97.4 [degF] Coby Sarmad ESCUDERO [facility] Work Phone: Comment on above: Method: Oral 04-06-2007 08:22-0500 Body weight 89.36 kg Coby Sarmad ESCUDERO [facility] Work Phone: 04-06-2007 08:22-0500 BP Diastolic 82 mm[Hg] Coby Bañuelos [facility] Medicine Work Phone: Comment on above: Patient Position: Sitting; Cuff Location : Left Arm; Cuff Size: Standard 04-06-2007 08:22-0500 BP Systolic 142 mm[Hg] Coby Bañuelos KOTA [facility] Medicine Work Phone: Comment on above: Patient Position: Sitting; Cuff Location : Left Arm; Cuff Size: Standard 04-06-2007 08:22-0500 Head Circumference 0 cm [facility] Work Phone: 04-06-2007 08:22-0500 Head Occipital-frontal circumference 0 cm Coby Carterolivier ESCUDERO [facility]; [facility] Work Phone: 04-06-2007 08:22-0500 Height 0 cm Coby Bañuelos [facility] Work Phone: 04-06-2007 08:22-0500 Pulse (Heart Rate) 74 /min Coby Bañuelos K[facility] Work Phone: Comment on above: Pattern: Regular 04-06-2007 08:22-0500 Respiratory Rate 17 /min Coby Bañuelos [facility] Work Phone: Comment on above: Pattern: Unlabored 04-06-2007 08:22-0500 Weight 89.36 kg Hilton [facility] Work Phone: 02-26-2007 08:04-0500 Body Temperature 98.3 [degF] [facility] Internal Medicine Work Phone: Comment on above: Method: Oral 02-26-2007 08:04-0500 Body weight 89.[address] [facility] Internal Medicine Work Phone: 02-26-2007 08:04-0500 BP Diastolic 76 mm[Hg] [facility] Internal Medicine Work Phone: Comment on above: Patient Position: Sitting; Cuff Location : Left Arm; Cuff Size: Standard 02-26-2007 08:04-0500 BP Systolic 140 mm[Hg] [facility] Internal Medicine Work Phone: Comment on above: Patient Position: Sitting; Cuff Location : Left Arm; Cuff Size: Standard 02-26-2007 08:04-0500 Head Circumference 0 cm [facility] Work Phone: 02-26-2007 08:04-0500 Head Occipital-frontal circumference [address] [facility] Work Phone: 02-26-2007 08:04-0500 Height [address] [facility] Internal Medicine Work Phone: 02-26-2007 08:04-0500 Pulse (Heart Rate) 76 /min [facility] Internal Medicine Work Phone: Comment on above: Pattern: Regular 02-26-2007 08:04-0500 Respiratory Rate 18 /min [facility] Internal Medicine Work Phone: Comment on above: Pattern: Unlabored 02-26-2007 08:04-0500 [facility]36 [facility] Work Phone: 12-26-2006 11:35-0400 Body Temperature 97.6 [degF] [facility] Internal Medicine Work Phone: Comment on above: Method: Oral 12-26-2006 11:35-0400 Body weight 0 kg [facility] Internal Medicine Work Phone: 12-26-2006 11:35-0400 BP Diastolic 72 mm[Hg] [facility] Internal Medicine Work Phone: Comment on above: Patient Position: Sitting; Cuff Location : Left Arm; Cuff Size: Standard 12-26-2006 11:35-0400 BP Systolic 120 mm[Hg] [facility] Internal Medicine Work Phone: Comment on above: Patient Position: Sitting; Cuff Location : Left Arm; Cuff Size: Standard 12-26-2006 11:35-0400 Head Circumference 0 cm [facility] Work Phone: 12-26-2006 11:35-0400 Head Occipital-frontal circumference 0 cm [facility]; [facility] Work Phone: 12-26-2006 11:35-0400 Height 0 cm Ana Maria Jacob[facility] Internal Medicine Work Phone: 12-26-2006 11:35-0400 Pulse (Heart Rate) 68 /min Ana Maria Jacobo [facility] Medicine Work Phone: Comment on above: Pattern: Regular 12-26-2006 11:35-0400 Respiratory Rate 16 /min Ana Maria Jacobo [facility] Medicine Work Phone: Comment on above: Pattern: Unlabored 12-26-2006 11:35-0400 Weight 0 kg Hilton Jay [facility] Medicine Work Phone: 12-17-2006 15:35-0400 Body Temperature 98.2 [degF] Kisha Jameson [facility] Medicine Work Phone: Comment on above: Method: Oral 12-17-2006 15:35-0400 Body weight 89.36 kg Kisha Jameson [facility] Medicine Work Phone: 12-17-2006 15:35-0400 BP Diastolic 60 mm[Hg] Kisha Jameson [facility] Work Phone: Comment on above: Patient Position: Sitting; Cuff Location : Right Arm; Cuff Size: Standard 12-17-2006 15:35-0400 BP Systolic 112 mm[Hg] Kisha Jameson [facility] Work Phone: Comment on above: Patient Position: Sitting; Cuff Location : Right Arm; Cuff Size: Standard 12-17-2006 15:35-0400 Head Circumference 0 cm Hilton [facility] Work Phone: 12-17-2006 15:35-0400 Head Occipital-frontal circumference 0 cm Kisha Jameson [facility]; [facility] Work Phone: 12-17-2006 15:35-0400 Height 0 cm Kisha Jameson [facility] Work Phone: 12-17-2006 15:35-0400 Pulse (Heart Rate) 60 /min Kisha Jameson [facility] Work Phone: Comment on above: Pattern: Regular 12-17-2006 15:35-0400 Respiratory Rate 16 /min Kisha Trino [facility] Work Phone: Comment on above: Pattern: Unlabored 12-17-2006 15:35-0400 Weight 89.36 kg Hilton Jay [facility] Work Phone: Encounters Encounter Date Encounter Type Care Provider Facility Start: 10-08-2024 ambulatory Hilton Indio Facilit y:[facility] Start: 10-06-2024 Encounter for other preprocedural examination Brenden Paulson [facility] Start: 09-30-2024 ambulatory Hilton Indio Facilit y:[facility] Start: 09-27-2024 ambulatory Hilton Indio Facilit y:[facility] Start: 08-10-2024 End: 08-10-[address] Hilton Jay DO Work Phone: [facility] Work Phone: Start: 08-10-2024 End: 08-10-[address] Brenden Paulson MD -Laboratory Work Phone: Start: 08-10-2024 End: 08-10-2024 ambulatory Hilton Jay Facility:[facility] Start: 08-04-2024 End: 08-04-[address] Hilton Jay DO Work Phone: [facility] Work Phone: Start: 08-04-2024 End: 08-04-[address] Brenden Paulson MD -Cat Scan [facility] Work Phone: Start: 08-04-2024 End: 08-04-2024 ambulatory Hilton Jay Facility:[facility] Start: 07-23-2024 End: 07-23-2024 Emergency department patient visit Dr. Hilton Jay DO Work Phone: -Emergency Department Work Phone: Start: 07-16-2024 ambulatory Hilton Jay Facilit y:[facility] Start: 06-29-2024 Non-patient / Non-visit Dr. Dax Rodriguez MD -[facility] Start: 06-29-2024 End: 06-29-[address] Hilton Jay DO Work Phone: [facility] Work Phone: Start: 06-29-2024 End: 06-29-[address] Dax Rodriguez MD -Cardiovascular Services Work Phone: Start: 06-29-2024 End: 06-29-2024 ambulatory Dax Rodriguez Facility:[facility] Start: 02-28-2024 ambulatory Hilton Indio Facilit y:[facility] Start: 02-06-2024 End: 02-06-2024 ambulatory Hiltonozzie Jay Facility:[facility] Start: 10-30-2023 End: 10-30-2023 ambulatory Hilton Jay [facility] Start: 10-30-2023 End: 10-30-2023 ambulatory Dax Rodriguez Facility:[facility] Start: 10-11-2023 End: 10-11-2023 ambulatory Hilton Jay Facility:[facility] Start: 06-30-2023 Non-patient / Non-visit Dr. Hilton Jay Work Phone: [facility] Start: 06-30-2023 End: 06-30-[address] Hilton Jay Work Phone: [facility] Work Phone: Start: 06-30-2023 End: 06-30-[address] Hilton Jay Work Phone: [facility]-Cardiovascula r Services Work Phone: Start: 02-05-2023 End: 02-05-2023 ambulatory [facility] Work Phone: Start: 02-05-2023 End: 02-05-2023 Patient encounter procedure [facility]-Laboratory Work Phone: Start: 10-09-2022 End: 10-24-[address] Hilton Jay Work Phone: [facility] Work Phone: Start: 10-09-2022 End: 10-24-[address] Hilton Jay Work Phone: [facility]-Cardiac Rehab Work Phone: Start: 09-27-2022 End: 09-28-2022 Emergency department patient visit Dr. Hilton Jay Work Phone: [facility]-Emergency Department Work Phone: Start: 09-27-[address] Brittany Jay Work Phone: [facility]-Cardiac Rehab Work Phone: Start: 09-23-2022 End: 09-23-[address] Hilton Jay Work Phone: [facility]Card[facility] Work Phone: Start: 09-10-2022 Telephone encounter Abhishek may MD Work Phone: Cardiology Comment on above: Echocardiogram resul ts Start: 09-05-2022 Orders Only Jessi Kathleen Held A PRN.CALL SPECIALIST Work Phone: Cardiology Comment on above: Aortic valve disorde r (Primary Dx); Heart failure due to valvular disease, acute on chronic, diastolic (HCC) Start: 08-23-2022 End: 08-23-[address] Hilton Jay Work Phone: [facility] Work Phone: Start: 08-23-2022 End: 08-23-[address] Hilton Jay Work Phone: [facility]-Cardiac Rehab Work Phone: Start: 08-16-2022 End: 08-16-[address] Hilton Jay Work Phone: [facility] Work Phone: Start: 07-24-2022 End: 07-24-[address] Hilton Jay Work Phone: [facility] Work Phone: Start: 07-24-2022 End: 07-24-[address] Hilton Jay Work Phone: [facility]Cardiac [facility] Start: 07-19-[address] Brittany Jay Work Phone: [facility] Start: 07-15-2022 End: 07-15-[address] Hilton Jay Work Phone: [facility] Work Phone: Start: 07-15-2022 End: 07-15-[address] Hilton Jay Work Phone: [facility]Cardiac [facility] Start: 07-08-2022 End: 07-08-[address] Hilton Jay Work Phone: [facility]-Laboratory Start: 07-05-2022 Telephone encounter Abhishek may MD Work Phone: Cardiology Comment on above: Faxed over records t o Dr. 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; S/P coronary artery stent placement; Essential hypertension; Hyperlipidemia, unspecified hyperlipidemia type Start: 07-01-2022 Telephone encounter Abhishek may MD Work Phone: Cardiology Comment on above: Patient Question Start: 06-26-2022 ambulatory Abhishek murphy MD Work Phone: Cardiology Start: 06-26-2022 Patient encounter procedure Abhishek Alegria MD Work Phone: [facility] Start: 06-25-2022 End: 06-25-2022 Patient encounter status [facility] Start: 06-25-2022 End: 06-25-2022 Admission to same day surgery center Anesthesia Clearance Work Phone: Cardiothoracic Start: 06-25-2022 End: 06-25-2022 Patient encounter procedure [facility] Comment on above: Preop cardiovascular exam (Primary Dx); Nonrheumatic mitral valve regurgitation; 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; Paroxysmal atrial fibrillation (HCC) Encounter for preope rative anesthesiology assessment for cardiac surgery (Primary Dx); Chronic combined systolic and diastolic congestive heart failure (HCC); Paroxysmal atrial fibrillation (HCC) Start: 06-25-2022 End: 06-25-2022 Subsequent hospital visit by physician Oniel Chest Main J1 Work Phone: Radiology Comment on above: Nonrheumatic mitral valve regurgitation [I34.0] Start: 06-12-2022 End: 06-12-2022 Office outpatient visit 15 minutes Hilton Jay DO Work Phone: [facility] Start: 06-11-2022 Telephone encounter Abhishek may MD Work Phone: Cardiology Comment on above: returning providers call Start: 06-04-2022 ambulatory Jessi ALCANTARACALL SPECIALIST Work Phone: Cardiology Comment on above: Structural dental cl earance Start: 06-02-2022 End: 06-03-2022 Emergency department patient visit Dr. Hilton Jay Work Phone: [facility]-Emergency Department Start: 05-24-2022 ambulatory Amber verdugo APRN.FAMILY SERVICE CENTER DIRECTOR Work Phone: Cardiology Comment on above: Dental Clearance Start: 05-24-2022 E-mail encounter fro m caregiver Amber Guillemro APRN.FAMILY SERVICE CENTER DIRECTOR Work Phone: [facility] Start: 05-24-2022 Telephone encounter Abhishek may MD Work Phone: Cardiology Comment on above: dental clearance for m Start: 05-09-2022 Telephone encounter Abhishek may MD Work Phone: Cardiology Comment on above: [facility] scanned in [employer]) Start: 05-08-2022 Telephone encounter Abhishek may MD Work Phone: Cardiology Comment on above: Request Outside [facility] Records Start: 05-07-2022 End: 05-07-[address] Hilton Jay Work Phone: [facility] Start: 05-04-2022 Non-patient / Non-visit Dr. Hilton Jay Work Phone: [facility] Start: 05-03-2022 Non-patient / Non-visit Dr. Hilton Jay Work Phone: [facility] Start: 05-03-2022 Non-patient / Non-visit Dr. Hilton Jay Work Phone: [facility] Start: 05-03-2022 End: 05-04-2022 Evaluation and management of inpatient Dr. Hilton Jay Work Phone: [facility]-Progressive Care Unit Start: 05-03-2022 End: 05-04-[address] Hilton Jay Work Phone: [facility] Work Phone: Start: 01-09-2022 Telephone encounter Abhishek may MD Work Phone: Cardiology Comment on above: Appointment Start: 12-20-2021 End: 12-20-[address] Hilton Jay Work Phone: [facility] Start: 12-18-2021 End: 12-18-[address] Hilton Jay Work Phone: [facility] Work Phone: Start: 12-18-2021 End: 12-18-[address] 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 Hilton Jay Work Phone: [facility] Start: 09-20-2021 End: 09-20-[address] Hilton Jay Work Phone: [facility]-Cardiovascula r Services Start: 09-20-2021 End: 09-20-[address] Hilton Jay Work Phone: [facility] Start: 09-18-2021 End: 09-18-2021 Emergency department patient visit Dr. Hilton Jay Work Phone: [facility]-Emergency Department Start: 09-13-2021 Telephone encounter Abhishek may MD Work Phone: Cardiology Comment on above: Patient Education Start: 08-28-2021 Non-patient / Non-visit Dr. Hilton Jay Work Phone: [facility] Start: 08-17-2021 ambulatory Amber Ta APRN.CNP Work Phone: Cardiology Comment on above: TMTT Meeting Start: 08-13-2021 End: 08-13-[address] Hilton Jay Work Phone: [facility]-Laboratory Start: 08-13-2021 Non-patient / Non-visit Dr. 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 Start: 08-09-2021 Telephone encounter Mel bradford MD Work Phone: Cardiology Comment on above: Results Start: 08-09-2021 End: 08-09-2021 ambulatory Pelon Kyle MD Work Phone: Cardiothoracic Comment on above: Mitral valve prolaps e (Primary Dx) Start: 08-09-2021 End: 08-09-2021 Telemedicine consultation with patient Pelon Kyle MD Work Phone: [facility] Start: 08-08-2021 End: 08-13-2021 Patient encounter procedure Transesophageal Echo Card Main Cardiology Comment on above: Mitral regurgitation due to cusp prolapse (Primary Dx); Shortness of breath; Nonrheumatic mitral valve regurgitation; Chronic diastolic heart failure (HCC) Start: 08-08-2021 End: 08-08-2021 Subsequent hospital visit by physician Xr Chest Main J1 Work Phone: Radiology Comment on above: Shortness of breath [R06.02] Start: 08-08-2021 End: 08-08-2021 Patient encounter procedure Mel Lobo MD Work Phone: Cardiology Comment on above: Mitral valve prolaps e (Primary Dx); Non-rheumatic mitral regurgitation; 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 Hilton Jay Work Phone: [facility] Start: 06-07-2021 End: 06-07-2021 Office outpatient visit 25 minutes Hilton Jay DO Work Phone: [facility] Start: 04-30-2021 End: 04-30-2021 Admission to same day surgery center Dr. Hilton Jay Work Phone: [facility]-F[facility]/Special Procedures Start: 04-27-2021 Non-patient / Non-visit Dr. Hilton Jay Work Phone: [facility] Start: 03-28-2021 Non-patient / Non-visit Dr. Hilton Jay Work Phone: [facility] Start: 03-28-2021 End: 03-28-[address] Hilton Jay Work Phone: [facility]-Cardiovascula r Services Start: 03-15-2021 End: 03-15-[address] Hilton Jay Work Phone: [facility]-Laboratory Start: 12-06-2020 End: 12-06-2020 Office outpatient visit 25 minutes Hilton Jay DO Work Phone: [facility] Start: 12-06-2020 End: 12-06-2020 Patient encounter procedure Hilton Jay DO Work Phone: [facility]; [facility] Work Phone: Start: 06-05-2020 End: 06-05-2020 Office outpatient visit 25 minutes Hilton Jay [facility] Start: 12-06-2019 End: 12-06-2019 Office outpatient visit 25 minutes Hilton Jay [facility] Start: 12-06-2019 Review Hilton Jay [facility] Start: 10-04-2019 Review Hilton Jay [facility] Start: 10-04-2019 End: 10-04-2019 Patient encounter procedure Hilton Jay DO Work Phone: [facility] Start: 10-04-2019 End: 10-04-2019 Periodic preventive med est patient 65yrs& older Hilton Jay [facility] Start: 09-13-2019 End: 09-13-2019 Office outpatient visit 15 minutes Hilton Jay [facility] Start: 03-03-2019 End: 03-03-2019 Office outpatient visit 15 minutes Hilton Jay [facility] Start: 02-15-2019 End: 02-15-2019 Patient encounter procedure Hilton Ewingon DO Work Phone: [facility] Start: 02-15-2019 End: 02-15-2019 Periodic preventive med est patient 65yrs& older Hilton Jay [facility] Start: 01-20-2019 End: 01-20-2019 Office outpatient visit 25 minutes Hilton Jay [facility] Start: 10-15-2018 End: 10-15-2018 Office outpatient visit 25 minutes Hilton Jay [facility] Start: 10-15-2018 Review Hilton Jay [facility] Start: 06-11-2018 End: 06-19-2018 Phone Encounter Hilton Jay [facility] Start: 06-11-2018 End: 06-19-2018 Hilton Jay DO Work Phone: [facility] Start: 04-29-2018 Patient encounter procedure Hilton Jay [facility] Start: 04-29-2018 End: 04-29-2018 Office outpatient visit 15 minutes Hiltonozzie Jay [facility] Start: 04-23-2018 End: 04-23-2018 Office outpatient visit 15 minutes Hilton Jay [facility] Start: 04-23-2018 [facility] Start: 01-05-2018 End: 01-05-2018 Office outpatient visit 15 minutes Hiltonozzie Jay [facility] Start: 11-27-2017 End: 11-27-2017 Patient encounter procedure Hilton Jay DO Work Phone: [facility] Start: 11-27-2017 End: 11-27-2017 Periodic preventive med est patient 65yrs& older Hilton [facility] Start: 04-17-2017 End: 04-17-2017 Office outpatient visit 25 minutes Hilton Jay [facility] Start: 11-20-2016 End: 11-20-2016 Periodic preventive med est patient 65yrs& older Hilton [facility] Start: 11-20-2016 End: 11-20-2016 Physical examination Hilton Jay DO Work Phone: [facility] Start: 10-14-2016 End: 10-14-2016 Office outpatient visit 25 minutes Hilton Ind[facility] Start: 08-08-2016 End: 08-08-2016 Office outpatient visit 10 minutes Hiltonozzie Jay [facility] Start: 12-05-2015 End: 12-05-2015 Office outpatient visit 5 minutes Hilton Indio [facility] Start: 11-13-2015 End: 11-13-2015 Patient encounter procedure Hilton Jay DO Work Phone: [facility] Start: 11-13-2015 End: 11-13-2015 Periodic preventive med est patient 65yrs& older Hilton Jay [facility] Start: 11-08-2015 End: 11-09-2015 Office outpatient visit 15 minutes Hiltondavid Jay [facility] Start: 10-16-2015 End: 10-16-2015 Phone Encounter Hilton Jay [facility] Start: 10-16-2015 End: 10-16-2015 Hilton Jay DO Work Phone: [facility] Start: 10-16-2015 End: 10-16-2015 Office outpatient visit 25 minutes Hilton Jay [facility] Start: 08-17-2015 End: 08-17-2015 Office outpatient visit 15 minutes Hilton Jay [facility] Start: 11-07-2014 End: 11-07-2014 Office outpatient visit 25 minutes Hilton Jay [facility] Start: 11-07-2014 End: 11-07-2014 Patient encounter procedure Hilton Jay DO Work Phone: [facility] Start: 10-18-2014 End: 10-18-2014 Phone Encounter Hilton Jay [facility] Start: 10-18-2014 End: 10-18-2014 Hilton Jay DO Work Phone: [facility] Start: 01-07-2014 End: 01-07-2014 Telephone encounter Kuldip Mcduffie MD Work Phone: General Surgery Comment on above: Schedule Surgery (cl assic right inguinal hernia repair) Start: 12-29-2013 End: 12-29-2013 Office outpatient visit 15 minutes Hilton Jay [facility] Start: 08-11-2013 End: 08-11-2013 Patient encounter procedure Hilton Jay [facility] Start: 08-11-2013 End: 08-11-2013 Hilton Jay DO Work Phone: [facility] Start: 04-21-2013 End: 04-21-2013 Patient encounter procedure Hilton Jay [facility] Start: 04-21-2013 End: 04-21-2013 Hilton Jay DO Work Phone: [facility] Start: 09-02-2012 End: 09-03-2012 Patient encounter procedure Hilton Jay [facility] Start: 09-02-2012 End: 09-03-2012 Hilton Jay DO Work Phone: [facility] Start: 06-29-2012 End: 06-29-2012 Phone Encounter Hilton Jay [facility] Start: 06-29-2012 End: 06-29-2012 Hilton Jay DO Work Phone: [facility] Start: 06-02-2012 End: 06-02-2012 Patient encounter procedure Hilton Jay [facility] Start: 06-02-2012 End: 06-02-2012 Hilton Jay DO Work Phone: [facility] Start: 05-25-2012 End: 05-25-2012 Phone Encounter Hilton Jay [facility] Start: 05-25-2012 End: 05-25-2012 Hilton Jay DO Work Phone: [facility] Start: 03-11-2012 End: 03-11-2012 Office outpatient visit 15 minutes Hilton Jay [facility] Start: 07-02-2011 End: 07-02-2011 Patient encounter procedure Hilton Jay [facility] Start: 07-02-2011 End: 07-02-2011 Hilton Jay DO Work Phone: [facility] Start: 04-08-2011 End: 04-08-2011 Patient encounter procedure Hilton Jay [facility] Start: 04-08-2011 End: 04-08-2011 Hilton Jay DO Work Phone: [facility] Start: 10-24-2010 End: 10-24-2010 Office outpatient visit 15 minutes Hilton Jay [facility] Start: 07-18-2010 End: 07-18-2010 Phone Encounter Hilton Jay [facility] Start: 07-18-2010 End: 07-18-2010 Hilton Jay DO Work Phone: [facility] Start: 07-11-2010 End: 07-15-2010 Patient encounter procedure Hilton Jay [facility] Start: 07-11-2010 End: 07-15-2010 Hilton Jay DO Work Phone: [facility] Start: 06-25-2010 End: 06-25-2010 Patient encounter procedure Hilton Jay [facility] Start: 06-25-2010 End: 06-25-2010 Hilton [place] DO Work Phone: [facility] Start: 06-22-2010 End: 06-22-2010 Office outpatient visit 25 minutes Hilton Jay [facility] Start: 05-08-2010 End: 05-08-2010 Patient encounter procedure Hilton Jay [facility] Start: 05-08-2010 End: 05-08-2010 Hilton Jay DO Work Phone: [facility] Start: 05-02-2010 End: 05-02-2010 Phone Encounter Hilton Jay [facility] Start: 05-02-2010 End: 05-02-2010 Hilton Jay DO Work Phone: [facility] Start: 05-01-2010 End: 05-01-2010 Phone Encounter Hilton Jay [facility] Start: 05-01-2010 End: 05-01-2010 Hilton Jay DO Work Phone: [facility] Start: 03-01-2010 End: 03-01-2010 Patient encounter procedure Hilton Jay [facility] Start: 03-01-2010 End: 03-01-2010 Hilton Jay DO Work Phone: [facility] Start: 02-22-2010 End: 02-22-2010 Patient encounter procedure Hilton Jay [facility] Start: 02-22-2010 End: 02-22-2010 Hilton Jay DO Work Phone: [facility] Start: 12-29-2009 End: 12-29-2009 Patient encounter procedure Hilton Jay [facility] Start: 12-29-2009 End: 12-29-2009 Hilton Jay DO Work Phone: [facility] Start: 08-11-2009 End: 08-11-2009 Patient encounter procedure Hilton Jay [facility] Start: 08-11-2009 End: 08-11-2009 Hilton Jay DO Work Phone: [facility] Start: 06-29-2009 End: 06-29-2009 Office outpatient visit 15 minutes Hilton Jay [facility] Start: 05-30-2009 End: 05-30-2009 Patient encounter procedure Hilton Jay [facility] Start: 05-30-2009 End: 05-30-2009 Hilton Jay DO Work Phone: [facility] Start: 11-09-2008 End: 11-09-2008 Office outpatient visit 15 minutes Hilton Jay [facility] Start: 10-10-2008 End: 10-10-2008 Patient encounter procedure Hilton Jay [facility] Start: 10-10-2008 End: 10-10-2008 Hilton Jay DO Work Phone: [facility] Start: 08-15-2008 End: 08-15-2008 Historical Summary Hilton Jay [facility] Start: 08-15-2008 End: 08-15-2008 Hilton Jay DO Work Phone: [facility] Start: 06-14-2008 End: 06-14-2008 Patient encounter procedure Hilton Jay [facility] Start: 06-14-2008 End: 06-14-2008 Hilton Jay DO Work Phone: [facility] Start: 04-07-2008 End: 04-07-2008 Historical Summary Hilton Jay [facility] Start: 04-07-2008 End: 04-07-2008 Hilton Jay DO Work Phone: [facility] Start: 11-20-2007 End: 11-20-2007 Patient encounter procedure Hilton Jay [facility] Start: 11-20-2007 End: 11-20-2007 Hilton Jay DO Work Phone: [facility] Start: 07-21-2007 End: 07-21-2007 Historical Summary Hilton Jay [facility] Start: 07-21-2007 End: 07-21-2007 Hilton Jay DO Work Phone: [facility] Start: 06-16-2007 End: 06-16-2007 Patient encounter procedure Hilton Jay [facility] Start: 06-16-2007 End: 06-16-2007 Hilton Jay DO Work Phone: [facility] Start: 04-08-2007 End: 04-08-2007 Office outpatient visit 25 minutes Hilton Jay [facility] Start: 04-06-2007 End: 04-06-2007 Office outpatient visit 10 minutes Hilton Jay [facility] Start: 02-26-2007 End: 02-26-2007 Office outpatient visit 15 minutes Hilton Jay [facility] Start: 12-26-2006 End: 12-26-2006 Patient encounter procedure Hilton Jay [facility] Start: 12-26-2006 End: 12-26-2006 Hilton Jay DO Work Phone: [facility] Start: 12-17-2006 End: 12-18-2006 Patient encounter procedure Hilton Jay [facility] Start: 12-17-2006 End: 12-18-2006 Hilton Jay DO Work Phone: [facility] Start: 12-15-2006 End: 12-15-2006 Historical Summary Hilton Jay [facility] Start: 12-15-2006 End: 12-15-2006 Hilton Jay DO Work Phone: [facility] Start: 10-03-2006 End: 10-03-2006 Historical Summary Hilton Jay [facility] Start: 10-03-2006 End: 10-03-2006 Hilton Jay DO Work Phone: [facility] Patient encounter procedure Rosanne Enrique RN [facility]; [facility] Work Phone: Patient encounter procedure Hilton Jay DO Work Phone: [facility]; [facility] Work Phone: Patient encounter procedure Tarachanning Iglesiasjs PUBLIC HEALTH SANITARIAN [facility]; [facility] Work Phone: Patient encounter procedure Rosanne Enrique RN [facility]; [facility] Work Phone: Patient encounter procedure Tara Iglesiasjs PUBLIC HEALTH SANITARIAN [facility]; [facility] Work Phone: Patient encounter procedure Mat K[facility]; [facility] Work Phone: Physical examination Tara Hayes CMA [facility]; [facility] Work Phone: Physical examination Viviana Mohan LPN [facility]; [facility] Work Phone: Physical examination Tara Hayes PUBLIC HEALTH SANITARIAN [facility]; [facility] Work Phone: Physical examination Mat Kwan PUBLIC HEALTH SANITARIAN [facility]; [facility] Work Phone: Procedures Date Procedure Procedure Detail Performing Clinician Start: 08-10-2024 Assay of prostate specific antigen total Dr. Hilton Jay DO Work Phone: Comment on above: This test was performed using the [employer] tPSA method. Measured values of a patient sample can vary depending on the testing procedure used. PSA values determined on patient samples by different testing procedures cannot be used interchangeably. If there is a change in PSA assays while monitoring therapy, sequential testing should be performed to confirm baseline values. Start: 08-04-2024 Computed tomography of abdomen and pelvis with contrast Dr. Hilton Jay DO Work Phone: Start: 07-23-[address] Hilton Jay DO Work Phone: Start: 07-23-2024 Urnls dip stick/tablet reagent auto microscopy Dr. Hilton Jay DO Work Phone: Start: 09-28-2022 End: 09-28-2022 Procedure Note: See Note; NOTES: [facility] Medical Records Department [address] [place] [id number] Emergency Department Summary 09/28/22 MR#: [id number] Acct: [id number] Name: СЕРГЕЙ ALMEIDA Rep #: [id number] : 1945 77 From: Luis Alberto Braun DO PCP: Dr. Hilton Jay, DO Status:DEP ER Location: ED HPI History of Present Illness Chief Complaint: Chest Pain Informant: patient and spouse/S.O. Narrative Narrative: Patient is a 77-year-old male with past medical history of coronary artery disease as well as proximal atrial fibrillation currently on Eliquis. He states he was at home today resting after performing cardiac rehab. He states he then felt some mild chest discomfort and looked down and his smart watch and noticed that his heart rate and blood pressure were elevated. He states that he waited a little while at home to see if symptoms would improve and they did not do so so therefore he comes in for evaluation. Patient reports he is on Eliquis because of a past medical history of A-fib but is only been at [address] 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 Elevated PSA Essential hypertension Hyperlipidemia Hypothyroidism Incontinence of urine Nonrheumatic mitral (valve) insufficiency Nonrheumatic mitral (valve) prolapse Old inferolateral myocardial infarction Prostate cancer Urgency-frequency syndrome Home Medications multivitamin with folic acid 400 mcg tablet 1 tab PO DAILY SUPPLEMENT 01/14/14 [History Last Taken 05/02/22] latanoprost 0.005 % eye drops 1 drp EACH EYE QHS EYES 01/03/17 [History Last Taken 05/02/22] omega-3 fatty acids-fish oil 684 mg-1,200 mg capsule,delayed release 1 ea PO DAILY SUPPLEMENT 01/03/17 [History Last Taken 05/02/22] cinnamon bark 500 mg capsule 500 mg PO DAILY 10/07/18 [History Last Taken 05/02/22] magnesium oxide 500 mg capsule 500 mg PO DAILY 10/07/18 [History Last Taken 05/02/22] vitamin B complex 1 tab PO DAILY 10/07/18 [History Last Taken 05/02/22] nitroglycerin 0.4 mg sublingual tablet (Nitrostat) 0.4 mg sublingual Q5M PRN chest pain #25 tabs 12/07/19 [Rx Last Taken Unknown] epinephrine 0.3 mg/0.3 mL injection, auto-injector 0.3 mg IM X1 PRN Allergic Reaction 09/20/21 [History Last Taken Unknown] cholecalciferol (vitamin D3) 62.5 mcg (2,500 unit) capsule 125 mcg PO DAILY 05/07/22 [History Last Taken Unknown] apixaban 5 mg tablet (Eliquis) 5 mg PO BID #60 tabs 07/02/22 [Rx Last Taken Unknown] metoprolol tartrate 25 mg tablet 12.5 mg (1/2 x 25 mg) PO BID BP #90 tabs 07/10/22 [Rx Last Taken Unknown] coenzyme Q10 100 mg tablet 100 mg PO DAILY 08/16/22 [History Last Taken Unknown] rosuvastatin 5 mg tablet 5 mg PO QHS cholesterol #90 tabs 08/16/22 [Rx Last Taken Unknown] clopidogrel 75 mg tablet 75 mg PO DAILY #90 tabs 09/06/22 [Rx Last Taken Unknown] levothyroxine 100 mcg tablet 100 mcg PO DAILY THYROID #90 tabs 09/06/22 [Rx Last Taken Unknown] amlodipine 5 mg tablet 5 mg PO DAILY #30 tabs 09/23/22 [Rx Last Taken Unknown] Allergy/AdvReac Type Severity Reaction Status Date / Time bee venom protein (honey bee) Allergy Unknown hives/anaph Verified 08/16/22 10:41 ylaxis ramipril Allergy Angioedema Verified 08/16/22 10:41 Family History Father , of Rohini's disease Rohini's disease Mother , Age 60 of [place] CAD (coronary artery disease) Myocardial infarction Brother CAD (coronary artery disease) history of cabg Brother CAD (coronary artery disease) Stented coronary artery Diabetes Sister CAD (coronary artery disease) Myocardial infarction Hypertension Surgical History H/O coronary artery bypass surgery (11/1994) H/O prostatectomy History of coronary artery stent placement (09/14/21) History of left heart catheterization (04/30/21) S/P mitral valve clip implantation Status post mitral valve repair (06/26/22) Social History Smoking Status: Never smoker alcohol intake: current alcohol intake frequency: other Alcohol type: beer and wine caffeine: Yes Type: coffee Number of servings: 3 ROS ROS ED Constitutional Constitutional ED: Denies chills or fever(s) Eyes Eyes: Denies change in vision ENT ENT ED: Denies sore throat Cardiovascular Cardiovascular: Reports chest pain, palpitations and racing heartbeat Respiratory/Chest Respiratory/Chest: Denies cough or dyspnea Gastrointestinal Gastrointestinal: Denies abdominal pain, diarrhea, nausea or vomiting Genitourinary Genitourinary ED: Denies dysuria Musculoskeletal Musculoskeletal: Denies myalgias Integumentary Denies rash Neurologic Neurologic: Denies headache(s) Hematologic/Lymphatic Hematologic/Lymphatic: Reports easy bleeding and easy bruising EXAM Physical Exam Const Vital Signs: 09/27/22 22:55 09/27/22 22:55 09/27/22 23:17 Temperature 97.8 F Temperature Source Temporal Pulse Rate 108 H 72 Respiratory Rate 18 Blood Pressure 155/91 H 171/71 H Blood Pressure Mean 112 104 Pulse Ox 98 Oxygen Delivery Method Room Air 09/27/22 23:35 09/28/22 00:00 09/28/22 00:00 Temperature Temperature Source Pulse Rate 69 59 L 59 L Respiratory Rate 16 14 16 Blood Pressure 126/76 H 133/69 H 131/67 H Blood Pressure Mean 92 90 88 Pulse Ox 98 98 98 Oxygen Delivery Method Room Air Room Air Room Air Positive well nourished and well developed General Appearance ED: well developed HEENT HEENT Narrative: Normocephalic atraumatic Eyes PERRL and EOMs intact bilaterally General Eye ED: Negative for scleral icterus Neck supple and no JVD Resp normal respiratory effort and clear to auscultation bilaterally Cardio regular rate and regular rhythm Rate: other Other Details: Radial pulses are equal and symmetric GI normal to inspection, nondistended, normoactive bowel sounds, non-tender and non-distended GI Narrative: No voluntary guarding or rigidity no pulsatile mass or fluid wave Auscultation: normoactive bowel sounds Palpation: soft Extremity normal to inspection Extremity Narrative: No asymmetric edema no pitting edema negative Homans' sign bilaterally Neuro oriented x3 and CN's II-XII intact bilaterally Sensorium / Orientation: alert Psych mental status grossly normal Skin no rashes or lesions noted General Skin Exam: Negative for jaundice MDM MDM MDM Narrative Medical decision making narrative: Patient presented to the ER and atrial fibrillation with rapid ventricular response as documented on EKG. he does have a remote history of this and is on Eliquis to protect from clot/stroke. Prior to me entering the room the patient underwent spontaneous cardioversion to normal sinus. In order to ensure there is no cause of the recurrent A-fib such as anemia hypomagnesemia hypokalemia or thyroid dysfunction basic blood work was obtained. As the patient had no chest pain or abnormal sensation after spontaneous cardioversion I do not feel need for troponin as EKG did not show any signs of ischemia. Blood work revealed no clinically significant finding and patient remained in sinus rhythm for the entire ER stay. Therefore at this time as patient is underwent spontaneous cardioversion and has remained in sinus rhythm and lab work shows no need for reversible causes such as hypokalemia or hypomagnesemia patient is otherwise safe for discharge. History Record Review Discussion w/independent historian: Patient and Significant other Lab Data Attestation: I reviewed the patient's lab results. Labs: Laboratory Results - last 24 hr 09/27/22 23:40 WBC 7.5 RBC 4.94 Hgb 15.3 Hct 45.6 MCV 92.3 MCH 31.0 MCHC 33.6 RDW Std Deviation 51.6 H RDW Coeff of Darian 15.1 H Plt Count 200 MPV 10.5 Immature Gran % (Auto) 1.200 H Neut % (Auto) 55.1 Lymph % (Auto) 26.1 Dougherty % (Auto) 11.2 H Eos % (Auto) 5.6 H Baso % (Auto) 0.8 Absolute Neuts (auto) 4.1 Absolute Lymphs (auto) 1.95 Nucleated RBC % 0 Sodium 142 Potassium 3.8 Chloride 110 H Carbon Dioxide 26.0 Anion Gap 6 BUN 23 H Creatinine 1.16 Estim Creat Clear Calc 53.32 Est GFR (MDRD) Af Amer 78 Est GFR (MDRD) Non-Af 65 BUN/Creatinine Ratio 19.8 Glucose 120 H Calcium 9.2 Magnesium 2.2 TSH 1.43 Discharge Plan Triage Chief Complaint: Chest Pain ED Provider: Luis Alberto Braun Dx/Rx/DC Orders Clinical Impression: Paroxysmal A-fib, Essential hypertension, 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 Instructions: AFib Dc Prescriptions: No Action cholecalciferol (vitamin D3) 62.5 mcg (2,500 unit) capsule 125 mcg PO DAILY coenzyme Q10 100 mg tablet 100 mg PO DAILY multivitamin with folic acid 1 TABLET tablet 1 tab PO DAILY latanoprost 1 DROP bottle 1 drp EACH EYE QHS omega-3 fatty acids-fish oil 1 EACH capsule,delayed release(DR/EC) 1 ea PO DAILY vitamin B complex 1 EACH tablet 1 tab PO DAILY cinnamon bark 500 MG capsule 500 mg PO DAILY magnesium oxide 500 MG capsule 500 mg PO DAILY epinephrine 0.3 mg/0.3 mL auto-injector 0.3 mg IM X1 PRN (Reason: Allergic Reaction) nitroglycerin [Nitrostat] 0.4 mg tablet, sublingual 0.4 mg SUBLINGUAL Q5M PRN (Reason: chest pain) Qty: 25 3RF Eliquis 5 mg tablet 5 mg PO BID Qty: 60 11RF metoprolol tartrate 25 mg tablet 12.5 mg PO BID Qty: 90 3RF rosuvastatin 5 mg tablet 5 mg PO QHS Qty: 90 3RF clopidogrel 75 mg tablet 75 mg PO DAILY Qty: 90 3RF levothyroxine 100 mcg tablet 100 mcg PO DAILY Qty: 90 3RF amlodipine 5 mg tablet 5 mg PO DAILY Qty: 30 11RF Primary Care Provider: Hilton Jay Referrals: Hilton Jay DO [Primary Care Provider] - Activity Restrictions/Additional Instructions: You spontaneously went into atrial fibrillation but then also spontaneously converted to normal sinus rhythm. Please continue all of your medications as directed by your family doctor and disciplinary hearing officer. Please discuss with your disciplinary hearing officer the potential action plan if you develop frequent recurrent A-fib bouts. If you have any further concerns or worsening of symptoms or the A- fib returns and will not resolve after a short while at home please return for repeat evaluation Disposition Disposition: Home, Self Care Discharge Date/Time: 09/28/22 00:58 What to do if you have Problems For any increased pain, shortness of breath, bleeding, nausea or vomiting, chest pain, or any unexpected problems, contact your Primary Care Provider. Call [facility] ([phone]) or report to the closest Emergency Room. Call 911 if necessary. 09/28/22 0101 <Electronically signed by Luis Alberto Braun DO> Cosigner Signature (if applicable): CC: Dr. Hilton Jay DO Signed Hilton aJy DO Work Phone: Start: 09-27-2022 End: 09-30-2022 Procedure Note: See Note; NOTES: [facility] Cardiovascular Services [address] [address] 12 Lead EKG 09/27/22 2340 MR#: [id number] Acct: [id number] Name: СЕРГЕЙ ALMEIDA Rep #: [id number] : 1945 77 From: Dax Rodriguez MD Attending Dr: Status: DEP ER Ordering Dr: Luis Alberto Braun DO Date: 09/27/22 Location: ED Sex: M C Admitted: Test Reason : RHYTHM CONVERSION Blood Pressure : / mmHG Vent. Rate : 071 BPM Atrial Rate : 071 BPM P-R Int : 166 ms QRS Dur : 130 ms QT Int : 430 ms P-R-T Axes : 032 -53 010 degrees QTc Int : 467 ms Sinus rhythm with occasional Premature ventricular complexes Left axis deviation Left ventricular hypertrophy with QRS widening Abnormal ECG Confirmed by DAX RODRIGUEZ MD ([id number]), material expeditor RAPHAEL LEVINE ([id number]) on 09/30/2022 1:14:37 PM Referred By: GEMA Confirmed By:DAX RODRIGUEZ MD 09/30/22 1314 Date Dax Rodriguez MD CC: Dr. Hilton Jay DO; Luis Alberto Braun DO Signed Hilton Jay DO Work Phone: Start: 08-16-2022 End: 08-16-2022 Procedure Note: See Note; NOTES: [facility] [place] [address] OFFICE VISIT Date of Service: 08/16/22 MR#: [id number] Acct: [id number] Name: СЕРГЕЙ ALMEIDA Regulo Rep #: [id number] : 1945 Provider: Dr. Dax Rodriguez MD Age/Sex: 77/M Location: [facility] Status: Signed [facility] History of Present Illness Details: Jose is a 77-year-old gentleman who presents here today for a cardiovascular follow-up visit. He has a history of coronary artery disease status post coronary bypass surgery with a left internal mammary artery to left anterior descending artery saphenous vein graft to diagonal branch and obtuse marginal branch. He also has a history of mitral valve prolapse as well as mitral regurgitation. In February of 2016 he underwent a heart catheterization which demonstrated patency of his left internal mammary artery to the left anterior descending artery as well as the saphenous vein graft to diagonal branch. The saphenous vein graft to the obtuse marginal branch was occluded. Medical management was recommended. His most recent cardiac catheterization from 04/30/2021 demonstrated 70% stenosis in his left main ostial. Moderate mitral valve prolapse, and mitral valve insufficiency-grade 3. 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 He recently underwent a successful LORENZA, at the [facility] where he underwent a successful IVUS guided PCI of the ostial left main into the circumflex artery with a 4.0 x 15 mm drug-eluting stent. He had a dedicated cardiac CT with 40 dynamic imaging and it demonstrated prolapse of the posterior leaflet. It was felt that with his preserved LV function and his BNP returning back to normal on as needed Lasix he should continue that with yearly echocardiograms. He presented to the hospital approximately a week ago with shortness of breath with exertion and was noted to be in atrial fibrillation with rapid ventricular response rate. He was started on Eliquis and had a repeat echocardiogram which demonstrated an ejection fraction of 60%, stage III diastolic dysfunction, severely enlarged left atrium, moderately severe anteriorly directed mitral regurgitation with mitral valve prolapse of the posterior leaflet and pulmonary artery systolic pressure now increased to 58 mmHg. He was sent up to the [facility] for the mitral valve clip and he underwent transcatheter mitral valve repair with 2X TR MitraClip devices on July 23, 2022. He subsequently had an echocardiogram done after that which demonstrated an ejection fraction of 60% and the peak and mean gradient across the mitral valve was 10 and 3 mmHg respectively. He has done well he has been in cardiac rehabilitation. His blood pressure he says has been somewhat elevated. His physical exam demonstrates clear lung doll regular rate and rhythm midsystolic click with a 1/6 systolic murmur and no pedal edema. Intake Vital Signs 05/07/22 14:52 08/14/22 08:18 08/16/22 08:37 08/16/22 10:37 Height 5 ft 10 in 5 ft 10 in 5 ft 10 in 5 ft 10 in Weight: 177 lb 175 lb BMI 25.1 BP 115/54 L Blood Pressure Location Lt brachial Position Sitting Respiration 18 Pulse 62 Pulse Source Monitor Intake Visit Reasons: 3 M FU Bilingual Office Assistant Required: No Accompanied by: Is patient in pain?: No Allergies bee venom protein (honey bee) Allergy (Unknown, Verified 08/16/22 10:41) hives/anaphylaxis ramipril Allergy (Verified 08/16/22 10:41) Angioedema Medications multivitamin with folic acid 400 mcg tablet 1 tab PO DAILY SUPPLEMENT 01/14/14 [History Confirmed 08/16/22] latanoprost 0.005 % eye drops 1 drp EACH EYE QHS EYES 01/03/17 [History Confirmed 08/16/22] omega-3 fatty acids-fish oil 684 mg-1,200 mg capsule,delayed release 1 ea PO DAILY SUPPLEMENT 01/03/17 [History Confirmed 08/16/22] cinnamon bark 500 mg capsule 500 mg PO DAILY 10/07/18 [History Confirmed 08/16/22] magnesium oxide 500 mg capsule 500 mg PO DAILY 10/07/18 [History Confirmed 08/16/22] vitamin B complex 1 tab PO DAILY 10/07/18 [History Confirmed 08/16/22] nitroglycerin 0.4 mg sublingual tablet (Nitrostat) 0.4 mg sublingual Q5M PRN chest pain #25 tabs 12/07/19 [Rx Confirmed 08/16/22] levothyroxine 100 mcg tablet 100 mcg PO DAILY THYROID #90 tabs 09/06/21 [Rx Confirmed 08/16/22] clopidogrel 75 mg tablet 75 mg PO DAILY 09/18/21 [History Confirmed 08/16/22] epinephrine 0.3 mg/0.3 mL injection, auto-injector 0.3 mg IM X1 PRN Allergic Reaction 09/20/21 [History Confirmed 08/16/22] cholecalciferol (vitamin D3) 62.5 mcg (2,500 unit) capsule 125 mcg PO DAILY 05/07/22 [History Confirmed 08/16/22] apixaban 5 mg tablet (Eliquis) 5 mg PO BID #60 tabs 07/02/22 [Rx Confirmed 08/16/22] metoprolol tartrate 25 mg tablet 12.5 mg PO BID BP #90 tabs 07/10/22 [Rx Confirmed 08/16/22] amlodipine 2.5 mg tablet (Norvasc) 2.5 mg PO DAILY 07/15/22 [History Confirmed 08/16/22] coenzyme Q10 100 mg tablet 100 mg PO DAILY 08/16/22 [History Confirmed 08/16/22] rosuvastatin 5 mg tablet 5 mg PO QHS cholesterol #90 tabs 08/16/22 [Rx Confirmed 08/16/22] Ejection fraction %: 60 to 64 PFSH Medical History 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 Elevated PSA Essential hypertension Hyperlipidemia Hypothyroidism Incontinence of urine Nonrheumatic mitral (valve) insufficiency Nonrheumatic mitral (valve) prolapse Old inferolateral myocardial infarction Prostate cancer Urgency-frequency syndrome Surgical History H/O coronary artery bypass surgery (11/1994) H/O prostatectomy History of coronary artery stent placement (09/14/21) History of left heart catheterization (04/30/21) S/P mitral valve clip implantation Status post mitral valve repair (06/26/22) Family History Father , of Burleson's disease Rohini's disease Mother , Age 60 of [place] CAD (coronary artery disease) Myocardial infarction Brother CAD (coronary artery disease) history of cabg Brother CAD (coronary artery disease) Stented coronary artery Diabetes Sister CAD (coronary artery disease) Myocardial infarction Hypertension Social History Smoking Status: Never smoker alcohol intake: current alcohol intake frequency: other Alcohol type: beer and wine caffeine: Yes Type: coffee Number of servings: 3 ROS Const Const: Negative for fatigue, weakness, headache(s), frequent falls, difficulty sleeping or excessive sweating Eyes Eyes: Negative for loss of peripheral vision, transient loss of vision, blurry vision, double vision or tunnel vision ENT ENT: Positive for dizziness (Occasionally when standing up too quickly) and balance problems (Occasionallly. Unchanged from previous); Negative for headache(s) or Nosebleed/epistaxis Cardio Chest Pain: No Palpitations: No Edema: None Muscle aches with walking: None Resp Respiratory: Positive for SOB with activity (1 episode while walking dog. Resolved after short rest.); Negative for SOB at rest, SOB orthopnea SOB lying down, Cough or paroxysmal nocturnal dyspnea GI GI: Negative nausea, vomiting, heartburn or black,tarry stools : Negative for hematuria Musc Musc: Positive for balance problems (Occasionallly. Unchanged from previous); Negative for muscle aches/ myalgia, muscle weakness or joint pain Skin Skin: Negative non-healing lesions, rash or unusual bruising Neuro Neuro: Positive for dizziness (Occasionally when standing up too quickly); Negative for lightheadedness, near syncope, syncope, frequent falls, headache(s), weakness, blurry vision, double vision or lack of coordination Santino Hematologic/Lymphatic: Negative for easy bleeding or easy bruising Endo Endo: Negative for fatigue, excessive sweating or increased thirst/drinking Psych Psych: Negative for anxiety or depression Allergy Allergy/Immunology: Negative for hives and Negative for rash Supplemental Info Supplemental Information Labs: LDL Cholesterol 67 mg/dL (0-130) HDL Cholesterol 41 mg/dL (40-) Cholesterol 131 mg/dL (200) Triglycerides 113 mg/dL (-199) Diagnostics: Electrocardiogram Echocardiogram Chest X-Ray Pulmonary: No Data to Display Past Visits: No Data to Display Assessment and Plan Assessment and Plan (1) S/P mitral valve clip implantation: Status: Acute Plan: He is status post mitral valve clip implantation. He is doing remarkably well at this time. The plan is for him to continue the current medical therapy and cardiac rehabilitation. He tells me that he will be seeing the specialist at the [facility] in about a month and I suspect an echocardiogram will be performed and should be sent to us. (2) Atrial fibrillation, new onset: Status: Acute Plan: He has been maintaining sinus rhythm. I would not make any changes at this particular time. (3) H/O coronary artery bypass surgery: Status: Resolved Comment: CABG x 3 SWANSON-LAD, SVG-D1, SVG-OM2 11/1994 Plan: He is status post coronary bypass surgery. I will recommend that we continue him on the current medical therapy. Cardiac rehabilitation formally and informally has been emphasized. (4) Essential hypertension: Status: Chronic Plan: His blood pressure has been documented to be elevated. I would like us to increase the amlodipine to 5 mg once a day. (5) Hyperlipidemia: Status: Chronic Qualifiers: Hyperlipidemia type: pure hypercholesterolemia Qualified Code(s): E78.00 - Pure hypercholesterolemia, unspecified; E78.0 - Pure hypercholesterolemia Plan: He will continue with risk factor modification and his statins his last lipid profile demonstrated an HDL of 41 LDL 67 total cholesterol 131. Thank you for allowing me to participate in the care of your patient. Please don't hesitate to call if any issues arise. 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) Coding Level of Care Code Off vis,est,level 4 Diagnoses S/P mitral valve clip implantation Z98.890; Z95.818 Atrial fibrillation, new onset I48.91 H/O coronary artery bypass surgery Z95.1 Essential hypertension I10 Hyperlipidemia E78.00; E78.0 Hyperlipidemia type: pure hypercholesterolemia Coding Level of Care Code Off vis,est,level 4 Diagnoses S/P mitral valve clip implantation Z98.890; Z95.818 Atrial fibrillation, new onset I48.91 H/O coronary artery bypass surgery Z95.1 Essential hypertension I10 Hyperlipidemia E78.00; E78.0 Hyperlipidemia type: pure hypercholesterolemia 08/16/22 1109 <Electronically signed by Dax Rodriguez MD> Date Dax Rodriguez MD Cosigner Signature: Date (if applicable) CC: Dr. Hilton Jay, DO Hilton Jay DO Work Phone: Start: 07-15-2022 End: 07-15-2022 Procedure Note: See Note; NOTES: [facility] Cardiac Rehab [address] [address] CR - History Physical MR#: [id number] Acct: [id number] Name: СЕРГЕЙ ALMEIDA Rep #: [id number] : 1945 77 From: Cameorn Webb ON SITE MANAGER, GM, BS PCP: Dr. Hilton Jay, DO DOS: 07/15/22 CR - History Physical - General Arrival date:: 07/15/22 Arrival time:: 08:06 Date of Referral:: 07/08/22 Date of CR Evaluation:: 07/15/22 Referring Physician: Dr. Abhishek Alegria @ [facility] / Dr. Rodriguez local disciplinary hearing officer - History of Present Cardiac Event Onset Date: Enter Onset Date of cardiac illnesses in Comment field below Current stable Angina Pectoris:: No Acute Myocardial Infarction within 12 months:: No Coronary Artery Bypass Graft:: Yes - 1994 Heart valve replacement or repair:: Yes - 06/26/2022 Mitral valve Repair implant with 2-clips PTCA or coronary stenting:: Yes - August 2021, 06/26/2022 during time of the mitral valve repair. Heart or Heart-Lung Transplant:: No Heart Failure EF <35%:: No Interventions with present event:: Two macho clips devices deployed at the mitral valve Were there any complications?: None, decreased regurgitation 3-4 to trivial. - Sleep Disorder Evaluation Hx of Sleep Apnea: No Do you snore loudly (louder than talking or can be heard through closed doors)?: No Do you often feel tired/ fatigued/ sleepy during daytime?: No Has anyone observed you stop breathing during sleep?: No History of Hypertension (for STOP score): Yes STOP Results: Negative - Medications Home Medications: Ambulatory Orders Medication Instructions Recorded multivitamin with folic acid 400 1 tab PO DAILY SUPPLEMENT 01/14/14 mcg tablet latanoprost 0.005 % eye drops 1 drp EACH EYE QHS EYES 01/03/17 omega-3 fatty acids-fish oil 684 1 ea PO DAILY SUPPLEMENT 01/03/17 mg-1,200 mg capsule,delayed release cinnamon bark 500 mg capsule 500 mg PO DAILY 10/07/18 magnesium oxide 500 mg capsule 500 mg PO DAILY 10/07/18 vitamin B complex 1 tab PO DAILY 10/07/18 nitroglycerin 0.4 mg sublingual 0.4 mg sublingual Q5M PRN chest 12/07/19 tablet (Nitrostat) pain #25 tabs rosuvastatin 5 mg tablet 5 mg PO QHS cholesterol #90 tabs 08/20/21 levothyroxine 100 mcg tablet 100 mcg PO DAILY THYROID #90 tabs 09/06/21 clopidogrel 75 mg tablet 75 mg PO DAILY 09/18/21 epinephrine 0.3 mg/0.3 mL 0.3 mg IM X1 PRN Allergic Reaction 09/20/21 injection, auto-injector amlodipine 2.5 mg tablet 2.5 mg PO DAILY 12/20/21 cholecalciferol (vitamin D3) 62.5 125 mcg PO DAILY 05/07/22 mcg (2,500 unit) capsule coenzyme Q10 400 mg capsule 400 mg PO DAILY 05/07/22 ondansetron 4 mg disintegrating 4 mg PO Q8H PRN PRN Nausea #10 tabs 06/03/22 tablet apixaban 5 mg tablet (Eliquis) 5 mg PO BID #60 tabs 07/02/22 metoprolol tartrate 25 mg tablet 12.5 mg PO BID BP #90 tabs 07/10/22 amlodipine 2.5 mg tablet (Norvasc) 2.5 mg PO DAILY 07/15/22 cephalexin 500 mg capsule 500 mg PO Q12H 07/15/22 - Allergies Allergies/Adverse Reactions: Allergies bee venom protein (honey bee) Allergy (Unknown, Verified 06/02/22 21:14) hives/anaphylaxis ramipril Allergy (Verified 06/02/22 21:14) Angioedema Advanced Directives - Advanced Directives Power of Manager Process Improvement: Yes Living Will: Yes Advance Directives Information Provided: No Advance Directives on File: Yes - Not sure DNR Order?:: No - MOLST See MOLST form: No Past Medical History - Covid-19 Screening Fever: No Unexplained muscle aches: No Current respiratory symptoms: No Upper respiratory infections symptoms: No Gastro-intestinal symptoms: No Ijm-Ghnv-Cxjtms symptoms: Yes - Wax build-up in ears has to have removed about twice per year. Has tested positive for COVID-19 in last 30 days: No Had contact w/person w/symptoms or Covid-19 (+) last 14 days: No Has High Risk Exposures ID'd by Health dept/Inf Control team: No 65 years or older:: Yes Lives in Assisted Living facility:: No Has a chronic lung disease or moderate to severe asthma:: No Has a serious heart condition:: Yes Immunocompromised:: No Severely obese (Body Mass Index of 40 or higher):: No Diabetic:: No Has chronic kidney disease undergoing dialysis:: No Has liver disease:: No - Past Medical Illness Medical History: Past Medical History (Last Reviewed 06/02/22 @ 21:[address] 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 Paulson History of coronary artery stent placement Onset Date: 09/14/21 Z95.5 PCI of the ostial left main into LCx with a 4.0 x 15 mm Xience LORENZA 09/14/2021 History of left heart catheterization Onset Date: 04/30/21 Z98.890 1994, 06/21/2003, 01/06/17, 04/30/2021 Status post mitral valve repair Z98.890 2-metal clips performed at [facility] Surgical History: - - CABG x 3, prostatectomy, tonsillectomy, pilonidal cyst surgery, left elbow surgery with hardware. - Family History Summary Family History: Family History (Last Reviewed 06/02/22 @ 21:[address] Kisha Velazquez MD) Father , of Burleson's disease Burleson's disease Mother , Age 60 of [place] CAD (coronary artery disease) Myocardial infarction Brother CAD (coronary artery disease) history of cabg Brother CAD (coronary artery disease) Stented coronary artery Diabetes Sister CAD (coronary artery disease) Myocardial infarction Hypertension Social History - Smoking History Smoking Status: Never smoker Hx Tobacco Use: No Hx Smoking Exposure: No - Alcohol Use Alcohol Usage: Yes - occasional beer - Substance Abuse Hx Substance Use: No - Occupation Occupation (List type of work in comments):: Retired - Hobbies, Recreation, Social Activities Hobbies: None Recreational Activities: I am able to engage in all my recreational activities Social Environment - Status Marital Status: - Current Living Arrangements Living Environment:: Spouse - Children How many children do you have?: 2 - Oldest son from Leukemia Do any of your children live nearby?: Yes - Safety Do you feel safe in your surroundings?: Yes - Assistance Do you need any assistance at home?: no Review of Systems - Review of Systems Hints: Right click = Denies (Slash). Left click = Reports (Vance) Review of Present Symptoms: Reports: Shortness of Breath with Exertion - was previous but since the recent surgery clipping and stent hasn't had any real issues., Appetite - Normal, Sleep - Normal. Denies: Shortness of Breath at Rest, Angina, Dizziness/Lightheadedness, Fatigue, Heart Arrhythmia/Irregularities, Appetite - Special Diet - Try to watch but most times I don't. Don't use any added salt., Sexual Changes - Pain Is Patient Pain Free?: Yes Pain Location: none Pain Level: 0/10 Risk Factor Assessment - Chief Complaint Chief Complaint: Patient is a 77 yr male who presents to cardiac rehab today following recent mitral valve repair with 2- metal clips performed at the [facility] on 06/26/2022. Patient is recovering well. He recently had his post-op echocardiogram done and virtually has no leakage now and no regurgitation can be heard. - Vital Signs Temperature: 97.6 F Respiratory Rate: 14 Pulse Ox: 96 Blood Pressure: 150/75 - Pulse Pulse Rate: 62 Pulse Rhythm: Regular - Hypertension How long have you been treated?: since before 1994 Blood Pressure Sitting - Left Arm: 150/75 - Blood Cholesterol/Lipids Total Cholesterol (mg/dL) Goal = less than 200 mg/dL: 131 HDL Cholesterol (mg/dL) Goal = less than 40 mg/dL: 41 LDL Cholesterol (mg/dL) Goal = less than 70 mg/dL: 67 Triglycerides (mg/dL) Goal = less than 150 mg/dL: 113 - Diabetes Nutrition Referral for Diabetes: No - Obesity Height: 5 ft 10 in Weight:: 175 lb Weight in Pounds: 175.0 lbs Weight Source: Stated by Patient Body Mass Index (BMI): 25.1 Nutritional Referral for Obesity: No - Risk Stratification Risk Guidelines: Lowest Risk: Risk Factor for Smoking, Risk Factor for Dyslipidemia, Risk Factor for Diabetes, Risk Factor for Obesity, Risk Factor for Sedentary Lifestyle, Risk Factor for Depression, Highest Risk: Risk Factor for Hypertension - 150/75 BP today > than recommended 130/80 - Family History Family History: Family History (Last Reviewed 06/02/22 @ 21:[address] Kisha Velazquez MD) Father Rohini's disease Mother CAD (coronary artery disease) Myocardial infarction Brother CAD (coronary artery disease) history of cabg Brother CAD (coronary artery disease) Stented coronary artery Diabetes Sister CAD (coronary artery disease) Myocardial infarction Hypertension Motivation - Motivation to Participate On a scale of 1 to 10, how prepared are you to commit to attending program?: 10 What do you see as barriers to successfully being able to complete the program?: none What do you see as the benefits of succesfully completing the program? In other words, what do you hope to get out of participating in the program?: getting back into my routine, eating healthier, return to exercise Are there issues you are dealing with that will interfere with completing the program?: none Do you have a spouse or signficant other, family or friends who will help support you to complete the program?: yes 07/15/22 0849 <Electronically signed by Cameron Webb CRT, RCP, JEREMIAH> Date Cameron Webb CRT, RCP, BS Outcome assessment reviewed. Exercise plan approved as documented. Treatment plan and goals support patient needs/abilities. Continue with current plan. I certify the patient demonstrates improvement and remains willing and capable of participation. the patient continues to benefit from cardiac rehab services/training. The patient may continue at current intensity, endurance and modality and progress per protocol. 07/15/22 1035 <Electronically signed by Dax Rodriguez MD> Cosigner Signature: Date Dax Rodriguez MD CC: Signed Hilton Jay DO Work Phone: Start: 06-25-2022 Radiologic exam chest 2 views Amber Guillermo APRN.FAMILY [facility]ICE C[facility] DIRECTOR Work Phone: Start: 06-02-2022 Plain chest X-ray Dr. Hilton Jay Work Phone: Start: 06-02-2022 End: 06-02-2022 Procedure Note: See Note; NOTES: [facility] Imaging Services [address] [place] [address] Chest 1 View (Portable) MR#: [id number] Acct: [id number] Name: СЕРГЕЙ ALMEIDA Rep #: [id number] : 1945 M 77 From: Bubba Rajput PCP: Dr. Hilton Jay DO Status: REG ER Study: Chest 1 View (Portable) Date of Exam: 06/02/22 Exam# [id number] Ordering Dr: Kisha Velazquez MD STUDY: X-RAY CHEST REASON FOR EXAM: Male, 77 years old. Nausea and fatigue. TECHNIQUE: AP portable upright COMPARISON: CT chest 05/03/2022 FINDINGS: No evidence of pneumonia, pulmonary edema, pneumothorax or pleural effusion. Cardiac silhouette, hilar and mediastinal contours with no acute findings. Heart size normal. Moderate hiatal hernia. Atherosclerosis of the thoracic aorta. Sternotomy wires. Degenerative osseous changes with no acute osseous abnormality. Mild right scoliosis thoracic spine. RAD/Chest 1 View (Portable) IMPRESSION: No acute findings. Electronically Signed: Bubba Cee MD at 22:03 EDT Reading Location ID and State: [facility] [place] Tel , Service support , CC: Dr. Kisha Velazquez MD; Dr. Hilton Jay DO [employer] Computer [employer] Teacher: Signed Hilton Jay DO Work Phone: Start: 06-02-2022 End: 06-03-2022 Procedure Note: See Note; NOTES: [facility] Medical Records Department [address] [place] [address] Emergency Department Summary 06/02/22 MR#: [id number] Acct: [id number] Name: СЕРГЕЙ ALMEIDA Rep #: [id number] : 1945 77 From: Kisha Velazquez MD PCP: Dr. Hilton Jay DO Status:DEP ER Location: ED HPI History of Present Illness Chief Complaint: Hypertension Informant: patient Onset/Context/Timing Onset: Today Narrative Narrative: Patient presents secondary to fatigue and nausea. He has a history of mitral valve prolapse and is awaiting a clip procedure at the [facility]. He states that he went outside this afternoon and was picking up some sticks about 20 minutes when he became short of breath and fatigue. He went in to sit down to rest and that sensation seem to improve. After dinner tonight he got nauseated. He states the symptoms reminded him of when he had his heart attack and required bypass surgery 20 years ago. He denies any chest pressure at this time. He did note that his blood pressure was higher than normal tonight. He states he normally runs 150s over 60s. 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 Elevated PSA Essential hypertension Hyperlipidemia Hypothyroidism Incontinence of urine Nonrheumatic mitral (valve) insufficiency Nonrheumatic mitral (valve) prolapse Old inferolateral myocardial infarction Prostate cancer Urgency-frequency syndrome Home Medications multivitamin with folic acid 400 mcg tablet 1 tab PO DAILY SUPPLEMENT 01/14/14 [History Last Taken 05/02/22] latanoprost 0.005 % eye drops 1 drp EACH EYE QHS EYES 01/03/17 [History Last Taken 05/02/22] omega-3 fatty acids-fish oil 684 mg-1,200 mg capsule,delayed release 1 ea PO DAILY SUPPLEMENT 01/03/17 [History Last Taken 05/02/22] cinnamon bark 500 mg capsule 500 mg PO DAILY 10/07/18 [History Last Taken 05/02/22] magnesium oxide 500 mg capsule 500 mg PO DAILY 10/07/18 [History Last Taken 05/02/22] vitamin B complex 1 tab PO DAILY 10/07/18 [History Last Taken 05/02/22] nitroglycerin 0.4 mg sublingual tablet (Nitrostat) 0.4 mg sublingual Q5M PRN chest pain #25 tabs 12/07/19 [Rx Last Taken Unknown] metoprolol tartrate 25 mg tablet 12.5 mg PO BID BP #90 tabs 06/19/21 [Rx Last Taken 05/02/22] rosuvastatin 5 mg tablet 5 mg PO QHS cholesterol #90 tabs 08/20/21 [Rx Last Taken 05/02/22] levothyroxine 100 mcg tablet 100 mcg PO DAILY THYROID #90 tabs 09/06/21 [Rx Last Taken 05/02/22] clopidogrel 75 mg tablet 75 mg PO DAILY 09/18/21 [History Last Taken 05/02/22] epinephrine 0.3 mg/0.3 mL injection, auto-injector 0.3 mg IM X1 PRN Allergic Reaction 09/20/21 [History Last Taken Unknown] amlodipine 2.5 mg tablet 2.5 mg PO DAILY 12/20/21 [History Last Taken 05/02/22] apixaban 5 mg tablet (Eliquis) 5 mg PO BID 30 days #60 tabs 05/04/22 [Rx Last Taken Unknown] cholecalciferol (vitamin D3) 62.5 mcg (2,500 unit) capsule 125 mcg PO DAILY 05/07/22 [History Last Taken Unknown] coenzyme Q10 400 mg capsule 400 mg PO DAILY 05/07/22 [History Last Taken Unknown] ondansetron 4 mg disintegrating tablet 4 mg PO Q8H PRN PRN Nausea #10 tabs 06/03/22 [Rx Last Taken Unknown] Allergy/AdvReac Type Severity Reaction Status Date / Time bee venom protein (honey bee) Allergy Unknown hives/anaph Verified 06/02/22 21:14 ylaxis ramipril Allergy Angioedema Verified 06/02/22 21:14 Family History Father , of Burleson's disease Burleson's disease Mother , Age 60 of [place] CAD (coronary artery disease) Myocardial infarction Brother CAD (coronary artery disease) history of cabg Brother CAD (coronary artery disease) Stented coronary artery Diabetes Sister CAD (coronary artery disease) Myocardial infarction Hypertension Surgical History H/O coronary artery bypass surgery (11/1994) H/O prostatectomy History of coronary artery stent placement (09/14/21) History of left heart catheterization (04/30/21) Social History Smoking Status: Former smoker alcohol intake: current alcohol intake frequency: other Alcohol type: beer and wine caffeine: Yes Type: coffee Number of servings: 3 ROS ROS ED Constitutional Constitutional ED: Denies chills or fever(s) Eyes Eyes: Denies change in vision or discharge from eye(s) ENT ENT ED: Denies discharge from eye(s), rhinorrhea or sore throat Cardiovascular Cardiovascular: Reports chest pain; Denies palpitations Respiratory/Chest Respiratory/Chest: Reports dyspnea; Denies cough Gastrointestinal Gastrointestinal: Reports nausea; Denies abdominal pain, diarrhea or vomiting Genitourinary Genitourinary ED: Denies dysuria Musculoskeletal Musculoskeletal: Denies back pain or extremity pain Integumentary Denies Abrasions or rash Neurologic Neurologic: Denies headache(s) or weakness Psychiatric Psychiatric: Denies anxiety or depression Allergic/Immunologic Allergic/Immunologic ED: Denies lip swelling or urticaria EXAM Physical Exam Const Vital Signs: 06/02/22 21:11 06/02/22 21:21 06/02/22 21:24 Temperature 97.6 F L Temperature Source Temporal Pulse Rate 63 Respiratory Rate 15 Respiratory Effort Normal Non-Labored Respiratory Pattern Normal Blood Pressure 174/73 H 158/69 H Blood Pressure Mean 106 98 Pulse Ox 97 Oxygen Delivery Method Room Air 06/02/22 23:10 Temperature Temperature Source Pulse Rate 58 L Respiratory Rate 16 Respiratory Effort Respiratory Pattern Blood Pressure 147/73 H Blood Pressure Mean 97 Pulse Ox 95 Oxygen Delivery Method Room Air Positive well nourished and well developed General Appearance ED: well developed HEENT Reports normocephalic and head/scalp atraumatic Eyes PERRL and EOMs intact bilaterally Neck supple Chest Wall inspection of chest normal and palpation of chest normal Resp normal respiratory effort and clear to auscultation bilaterally Cardio regular rhythm Rate: bradycardia Heart Sounds: murmur GI normal to inspection, nondistended, normoactive bowel sounds Palpation: soft Extremity normal to inspection Neuro oriented x3 and no sensory deficits noted Sensorium / Orientation: alert Motor Exam: strength 5/5 throughout Psych mental status grossly normal Skin no rashes or lesions noted MDM MDM MDM Narrative Medical decision making narrative: Patient placed on equipment monitor phototypesetting. EKG obtained to evaluate for cardiac arrhythmia/ischemia. Labwork obtained to evaluate for leukocytosis, anemia, and electrolyte derangement. Chest x-ray obtained to evaluate for acute lung pathology, cardiac size, or mediastinal abnormality. Lab Data Attestation: I reviewed the patient's lab results. Labs: Laboratory Results - last 24 hr 06/02/22 06/02/22 06/02/22 21:43 21:43 21:43 WBC 7.3 RBC 4.48 L Hgb 13.7 Hct 42.2 MCV 94.2 H MCH 30.6 MCHC 32.5 RDW Std Deviation 47.8 H RDW Coeff of Darian 13.8 Plt Count 196 MPV 10.5 Immature Gran % (Auto) 0.300 Neut % (Auto) 53.0 Lymph % (Auto) 28.8 Dougherty % (Auto) 12.1 H Eos % (Auto) 5.2 H Baso % (Auto) 0.6 Absolute Neuts (auto) 3.8 Absolute Lymphs (auto) 2.09 Nucleated RBC % 0 Sodium 140 Potassium 4.0 Chloride 110 H Carbon Dioxide 24.0 Anion Gap 6 BUN 21 H Creatinine 1.33 H Estim Creat Clear Calc 46.50 Est GFR (MDRD) Af Amer 67 Est GFR (MDRD) Non-Af 55 L BUN/Creatinine Ratio 15.8 Glucose 151 H Calcium 8.5 Troponin I High Sens 10 B-Natriuretic Peptide 120.7 H 06/02/22 23:58 WBC RBC Hgb Hct MCV MCH MCHC RDW Std Deviation RDW Coeff of Darian Plt Count MPV Immature Gran % (Auto) Neut % (Auto) Lymph % (Auto) Dougherty % (Auto) Eos % (Auto) Baso % (Auto) Absolute Neuts (auto) Absolute Lymphs (auto) Nucleated RBC % Sodium Potassium Chloride Carbon Dioxide Anion Gap BUN Creatinine Estim Creat Clear Calc Est GFR (MDRD) Af Amer Est GFR (MDRD) Non-Af BUN/Creatinine Ratio Glucose Calcium Troponin I High Sens 11 B-Natriuretic Peptide Radiography Chest X-Ray - ED: 1 View, Read by ED Physician, Normal, Heart, Lungs and Mediastinum Diagnostic Testing: Clinical Impression(s) from Imaging Studies Chest X-Ray 06/02/22 21:47 IMPRESSION: No acute findings. Electronically Signed: Bubba Cee MD at 22:03 EDT Reading Location ID and State: [facility] [place] Tel , Service support , EKG Initial EKG: Attestation: I personally reviewed and interpreted this EKG as follows: Interpretation: Sinus Rhythm (Sinus at 61 with no acute ischemia.) Differential Diagnosis Chest pain/SOB: pulmonary embolism Reason(s) PE less likely: Positive for patient taking oral anticoagulants and ACS ACS: Positive for no evidence of ACS based on cardiac biomarkers and EKG without ischemia Treatment and Re-Evaluation :: Patient was given Zofran for nausea and does feel improved at this time. CBC and chemistry studies are unremarkable. BNP is slightly elevated at 120. Initial troponin is normal at 10. Repeat troponin is 11. Patient will be given a prescription for Zofran at home. He does feel improved at this time. will call disciplinary hearing officer at [facility] tomorrow who is planning to perform his valvular clip. Discharge Plan Triage Chief Complaint: Hypertension ED Provider: Kisha Velazquez Dx/Rx/DC Orders Clinical Impression: Nausea, Atypical chest pain Instructions: ED Chest Pain, Uncertain Cause Prescriptions: New ondansetron 4 mg tablet,disintegrating 4 mg PO Q8H PRN PRN (Reason: Nausea) Qty: 10 0RF No Action amlodipine 2.5 mg tablet 2.5 mg PO DAILY cholecalciferol (vitamin D3) 62.5 mcg (2,500 unit) capsule 125 mcg PO DAILY coenzyme Q10 400 mg capsule 400 mg PO DAILY multivitamin with folic acid 1 TABLET tablet 1 tab PO DAILY latanoprost 1 DROP bottle 1 drp EACH EYE QHS omega-3 fatty acids-fish oil 1 EACH capsule,delayed release(DR/EC) 1 ea PO DAILY vitamin B complex 1 EACH tablet 1 tab PO DAILY cinnamon bark 500 MG capsule 500 mg PO DAILY magnesium oxide 500 MG capsule 500 mg PO DAILY epinephrine 0.3 mg/0.3 mL auto-injector 0.3 mg IM X1 PRN (Reason: Allergic Reaction) clopidogrel 75 mg Tablet 75 mg PO DAILY Eliquis 5 mg Tablet 5 mg PO BID 30 Days Qty: 60 0RF nitroglycerin [Nitrostat] 0.4 mg tablet, sublingual 0.4 mg SUBLINGUAL Q5M PRN (Reason: chest pain) Qty: 25 3RF metoprolol tartrate 25 mg tablet 12.5 mg PO BID Qty: 90 3RF rosuvastatin 5 mg tablet 5 mg PO QHS Qty: 90 3RF levothyroxine 100 mcg tablet 100 mcg PO DAILY Qty: 90 3RF Primary Care Provider: Hilton Jay Referrals: Hilton Jay DO [Primary Care Provider] - As Needed Activity Restrictions/Additional Instructions: Follow-up with your [facility] disciplinary hearing officer as planned. Disposition Disposition: Home, Self Care What to do if you have Problems For any increased pain, shortness of breath, bleeding, nausea or vomiting, chest pain, or any unexpected problems, contact your Primary Care Provider. Call [facility] ([phone]) or report to the closest Emergency Room. Call 911 if necessary. 06/03/22107 <Electronically signed by Kisha Velazquez MD> Cosigner Signature (if applicable): CC: Dr. Hilton Jay DO Signed Hilton Jay DO Work Phone: Start: 05-07-2022 End: 05-08-2022 Procedure Note: See Note; NOTES: [facility] [address] [place] [address] 12 Lead EKG performed by [facility] 05/07/22 1452 MR#: [id number] Acct: [id number] Name: СЕРГЕЙ ALMEIDA Rep #: [id number] : 1945 77 From: Dax Rodriguez MD Attending Dr: Dr. Dax Rodriguez MD Status: DEP A MB Ordering Dr: Dax Rodriguez MD Date: 05/07/22 Location: [facility] Sex: M C Admitted: BMS/12 Lead EKG performed by [facility] Sinus Bradycardia -Nonspecific QRS widening and anterior fascicular block. BNORMAL 05/07/22 1600 <Electronically signed by Dax Rodriguez MD> Date Dax Rodriguez MD CC: Dr. Hilton Jay, DO Date Dictated: 05/07/221451 Date Transcribed: 05/07/221451 [employer] Computer [employer] Teacher: [place] Signed Hilton Jay DO Work Phone: Start: 05-07-2022 End: 05-07-2022 Procedure Note: See Note; NOTES: [facility] [address] [place] [address] OFFICE VISIT Date of Service: 05/07/22 MR#: [id number] Acct: [id number] Name: СЕРГЕЙ ALMEIDA Rep #: [id number] : 1945 Provider: Dr. Dax Rodriguez MD Age/Sex: 77/M Location: [facility] Status: Signed HPI [facility] History of Present Illness Details: This is a 77-year-old gentleman who presents here today for a cardiovascular follow-up visit. He has a history of coronary artery disease status post coronary bypass surgery with a left internal mammary artery to left anterior descending artery saphenous vein graft to diagonal branch and obtuse marginal branch. He also has a history of mitral valve prolapse as well as mitral regurgitation. In February of 2016 he underwent a heart catheterization which demonstrated patency of his left internal mammary artery to the left anterior descending artery as well as the saphenous vein graft to diagonal branch. The saphenous vein graft to the obtuse marginal branch was occluded. Medical management was recommended. His most recent cardiac catheterization from 04/30/2021 demonstrated 70% stenosis in his left main ostial. Moderate mitral valve prolapse, and mitral valve insufficiency-grade 3. 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 He recently underwent a successful LORENZA, at the [facility] where he underwent a successful IVUS guided PCI of the ostial left main into the circumflex artery with a 4.0 x 15 mm drug-eluting stent. He had a dedicated cardiac CT with 40 dynamic imaging and it demonstrated prolapse of the posterior leaflet. It was felt that with his preserved LV function and his BNP returning back to normal on as needed Lasix he should continue that with yearly echocardiograms. He presented to the hospital approximately a week ago with shortness of breath with exertion and was noted to be in atrial fibrillation with rapid ventricular response rate. He was started on Eliquis and had a repeat echocardiogram which demonstrated an ejection fraction of 60%, stage III diastolic dysfunction, severely enlarged left atrium, moderately severe anteriorly directed mitral regurgitation with mitral valve prolapse of the posterior leaflet and pulmonary artery systolic pressure now increased to 58 mmHg. He was subsequently discharged is doing well at this time at home his electrocardiogram demonstrates sinus rhythm with a rate of 58 bpm. He presents for a follow-up visit. From a cardiac standpoint, the patient is doing well. His accompanies him to the visit. He denies any palpitations, chest pain, pressure or heaviness. He denies SOB, Orthopnea, and PND. He does not have bleeding issues; no blood in urine, stool or nosebleeds. He denies any decrease in energy level, myalgias, or claudication. He does not have edema, or sudden weight gain. He denies dizziness, syncopal or near syncopal episodes, and headaches. Intake Vital Signs 05/03/22 12:35 05/07/22 11:58 05/07/22 14:52 Height 5 ft 10 in 5 ft 10 in 5 ft 10 in Weight: 177 lb BMI 25.4 BP 132/69 H Blood Pressure Location Lt brachial Position Sitting Respiration 16 Pulse 59 L Pulse Source Monitor Intake Visit Reasons: new a-fib, severe MR Bilingual Office Assistant Required: No Accompanied by: Is patient in pain?: No Allergies bee venom protein (honey bee) Allergy (Unknown, Verified 05/07/22 14:58) hives/anaphylaxis ramipril Allergy (Verified 05/07/22 14:58) Angioedema Medications multivitamin with folic acid 400 mcg tablet 1 tab PO DAILY SUPPLEMENT 01/14/14 [History Confirmed 05/07/22] latanoprost 0.005 % eye drops 1 drp EACH EYE QHS EYES 01/03/17 [History Confirmed 05/07/22] omega-3 fatty acids-fish oil 684 mg-1,200 mg capsule,delayed release 1 ea PO DAILY SUPPLEMENT 01/03/17 [History Confirmed 05/07/22] cinnamon bark 500 mg capsule 500 mg PO DAILY 10/07/18 [History Confirmed 05/07/22] magnesium oxide 500 mg capsule 500 mg PO DAILY 10/07/18 [History Confirmed 05/07/22] vitamin B complex 1 tab PO DAILY 10/07/18 [History Confirmed 05/07/22] nitroglycerin 0.4 mg sublingual tablet (Nitrostat) 0.4 mg sublingual Q5M PRN chest pain #25 tabs 12/07/19 [Rx Confirmed 05/07/22] metoprolol tartrate 25 mg tablet 12.5 mg PO BID BP #90 tabs 06/19/21 [Rx Confirmed 05/07/22] rosuvastatin 5 mg tablet 5 mg PO QHS cholesterol #90 tabs 08/20/21 [Rx Confirmed 05/07/22] levothyroxine 100 mcg tablet 100 mcg PO DAILY THYROID #90 tabs 09/06/21 [Rx Confirmed 05/07/22] clopidogrel 75 mg tablet 75 mg PO DAILY 09/18/21 [History Confirmed 05/07/22] epinephrine 0.3 mg/0.3 mL injection, auto-injector 0.3 mg IM X1 PRN Allergic Reaction 09/20/21 [History Confirmed 05/07/22] amlodipine 2.5 mg tablet 2.5 mg PO DAILY 12/20/21 [History Confirmed 05/07/22] apixaban 5 mg tablet (Eliquis) 5 mg PO BID 30 days #60 tabs 05/04/22 [Rx Confirmed 05/07/22] cholecalciferol (vitamin D3) 62.5 mcg (2,500 unit) capsule 125 mcg PO DAILY 05/07/22 [History Confirmed 05/07/22] coenzyme Q10 400 mg capsule 400 mg PO DAILY 05/07/22 [History Confirmed 05/07/22] Ejection fraction %: 60 to 64 PFSH Medical History 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 Elevated PSA Essential hypertension Hyperlipidemia Hypothyroidism Incontinence of urine Nonrheumatic mitral (valve) insufficiency Nonrheumatic mitral (valve) prolapse Old inferolateral myocardial infarction Prostate cancer Urgency-frequency syndrome Surgical History H/O coronary artery bypass surgery (11/1994) H/O prostatectomy History of coronary artery stent placement (09/14/21) History of left heart catheterization (04/30/21) Family History Father , of Burleson's disease Burleson's disease Mother , Age 60 of [place] CAD (coronary artery disease) Myocardial infarction Brother CAD (coronary artery disease) history of cabg Brother CAD (coronary artery disease) Stented coronary artery Diabetes Sister CAD (coronary artery disease) Myocardial infarction Hypertension Social History Smoking Status: Former smoker alcohol intake: current alcohol intake frequency: other Alcohol type: beer and wine caffeine: Yes Type: coffee Number of servings: 3 ROS Const Const: Negative for fatigue, weakness, headache(s), frequent falls, difficulty sleeping or excessive sweating Eyes Eyes: Negative for loss of peripheral vision, transient loss of vision, blurry vision, double vision or tunnel vision ENT ENT: Negative for headache(s), dizziness, Nosebleed/epistaxis or balance problems Cardio Chest Pain: No Palpitations: No Edema: None Muscle aches with walking: None Resp Respiratory: Negative for SOB with activity, SOB at rest, SOB orthopnea SOB lying down, Cough or paroxysmal nocturnal dyspnea GI GI: Negative nausea, vomiting, heartburn or black,tarry stools : Negative for hematuria Musc Musc: Negative for muscle aches/ myalgia, muscle weakness, joint pain or balance problems Skin Skin: Negative non-healing lesions, rash or unusual bruising Neuro Neuro: Negative for dizziness, lightheadedness, near syncope, syncope, frequent falls, headache(s), weakness, blurry vision, double vision or lack of coordination Santino Hematologic/Lymphatic: Negative for easy bleeding or easy bruising Endo Endo: Negative for fatigue, excessive sweating or increased thirst/drinking Psych Psych: Negative for anxiety or depression Allergy Allergy/Immunology: Negative for hives and Negative for rash Cardiology Exam Const Appearance: cooperative, healthy appearing, no acute distress, well developed and well groomed Nutritional Appearance: average body habitus and well nourished Orientation: alert, awake and oriented x3 Head Head: normal to inspection, normocephalic and atraumatic Ears: hearing grossly normal bilaterally and external ears normal Nose: external nose normal, nares normal, nasal mucous membranes and turbinates normal, septum normal and no nasal discharge Face and Sinus: face symmetric Mouth: oral mucosae normal, tongue normal, oropharynx normal and moist mucous membranes Teeth and gingiva: dentition normal Throat: posterior oropharynx normal, tonsils normal and uvula midline Eyes General: appearance normal, both eyes and all related structures Eyelids: eyelids normal Conjunctivae: conjunctivae normal Pupils: PERRL, normal by confrontation and accommodation normal EOM: EOM intact bilaterally Neck Neck: normal visual inspection, trachea midline and no JVD JVD: +5 Carotids: normal carotid upstroke and bounding pulses Chest Chest inspection: normal inspection of the chest, symmetric chest movement and normal respiratory effort Auscultation: Bilateral: Clear to Auscultation Cardio Palpation: normal PMI Rate: regular rate Rhythm: regular rhythm Heart sounds: S1 normal, S2 normal, murmur and normal, physiologic split S2; Negative rub or gallop Murmur: Grade 3/6, harsh, holosystolic and ELIZABETH loudest at apex -> axilla GI GI: normal to inspection, soft, no hepatosplenomegaly and bowel sounds present Neuro General: patient alert, patient awake, patient oriented x3, gait normal, moves all extremities and no focal sensory deficit Skin Skin: no rashes or lesions noted and ecchymosis (right forearm) Extremities Pulses: Normal: Right Femoral Pulse, Left Femoral Pulse, Right Dorsalis Pedis Pulse, Left Dorsalis Pedis Pulse, Right Posterior Tibial Pulse, Left Posterior Tibial Pulse, Right Radial Pulse and Left Radial Pulse Lower Extremity Edema: None: Bilateral Musculoskel Musculoskeletal: No joint tenderness Psych Psychological: normal affect Supplemental Info Supplemental Information Echocardiogram 05/03/2022 Interpretation Summary Normal LV size. Mild concentric left ventricular hypertrophy. The left ventricular ejection fraction is 60 %. Stage 3 diastolic dysfunction. The left atrium is severely enlarged. The right atrium is moderately enlarged. Mild mitral valve prolapse, posterior leaflet Moderately severe (3+) anteriorly directed mitral valve insufficiency. Mild to moderate (1-2+) tricuspid valve insufficiency. Pulmonary artery systolic pressure is 58 mmHg. Mild (1+) aortic valve insufficiency. Moderate (2+) pulmonic valve insufficiency. ECHOCARDIOGRAM 08/08/2021 CONCLUSIONS: - Exam indication: Pre-up Mitral Clip - The left ventricle is mildly dilated. Left ventricular systolic function is hyperdynamic. EF = 74 ??? 5% (2D biplane) Left ventricular diastolic function was not evaluated due to >2+ MR. - The right ventricle is normal in size. Right ventricular systolic function is normal. - The left atrial cavity is dilated. 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 Regurgitant orifice area (PISA) is 0.41 cm???. MR RV by PISA 93 mL (likely overestimated d/t MR predominance in late systole). MR RV by Quant Doppler 46 mL. - Estimated right ventricular systolic pressure is 43 mmHg consistent with mild pulmonary hypertension. Estimated right atrial pressure is 3 mmHg based on IVC CORONARY INTERVENTION 09/14/2021 Procedure Narrative: Lesion 1: LMT-Proximal Procedures Performed: 1. Successful IVUS guided PCI of the ostial left main into LCx with a 4.0 x 15 mm Xience LORENZA; post-dilated with a 4.5 x12 mm NC balloon. Procedure Summary: Indication: stable angina, ischemic MR Culprit Stenosis: ostial left main Pre CARLOTA Flow 3 Post CARLOTA Flow: 3 PROCEDURAL DETAILS Access: 5/6 Fr right radial artery Guide Catheter(s): 6 Fr JL 3.5 short tip Guidewire(s): Addi blue Other Equipment: [employer] IVUS Hemostasis: vasc band Anticoagulation: UFH Additional Procedural Medications: Sedation Radiation: Total DoseDose Area ProductTotal Exposure Bnxp7021.60 mGy47.92 Gy*cm???1137.00 sec PROCEDURAL NARRATIVE: We engaged the LMCA with the 6 Fr JL 3.5 short tip guide catheter. After administering heparin to a goal ACT of >250s, we advanced a Addi blue coronary wire to the distal LCx.PTCA with a 2.0 x 8 mm semi-compliant balloon was performed, followed by PTCA with a 3.0 x 10 mm [place] cutting balloon. Stenting with a 4.0 x 15 mm Xience LORENZA was performed. Intracoronary imaging with [employer] IVUS revealed optimal landing of the stent at the left main ostium, no evidence of edge dissection, and suboptimal expansion. Post-dilation with a 4.5 x 12 mm NC balloon was performed. Final angiography showed no evidence of dissection or perforation. There was CARLOTA 3 flow and 0% residual stenosis. ??? CT CARDIAC W IVCON??? 08/08/2021 IMPRESSION: 1. ??? Dedicated 4D dynamic imaging of the mitral valve demonstrates a bileaflet mitral valve with prolapse of the posterior leaflet. ???The leaflets are mildly thickened, although not calcified. There is no significant annular or sub-annular calcification. Annular measurements as per the body of the report. Using the end-systolic phase, and simulating TMVR with a 23 mm John S3 valve with 1/3 of the valve above the annular plane (atrial), the estimated curtis-LVOT area is 2.1 cm2. 2. ???Normal caliber thoracic aorta with aortic atherosclerotic changes as described in the body of the report. ???No acute aortic pathology identified...The aortic valve is trileaflet and free bones from calcifications. ???The thoracic aorta is normal in course, caliber, and contour. ???There is no acute aortic pathology. ???The arch vessel branching pattern is normal, and the arch branch vessels are all patent in their proximal portions. 3. ???Patient with coronary artery disease status post CABG. ???One of the bypass grafts to the obtuse marginal branch is occluded. TRANSESOPHAGEAL ECHO 08/08/2021 CONCLUSIONS: - Exam indication: Mitral Valve Assessment - The left ventricle is normal in size. Left ventricular systolic function is normal. EF = 60 ??? 5% (visual est.) - The right ventricle is normal in size. Right ventricular systolic function is normal. - The left atrial cavity is dilated. - The right atrial cavity is dilated. 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 Regurgitant orifice area (PISA) ???is 0.40 cm???. P2 prolapse. - There is no patent foramen ovale as detected by Doppler. - Large (1.4cm) highly mobile echodensity (likely thrombus / complex atheroma) in the proximal descending aorta (clip 73). CARDIAC CATHETERIZATION 04/30/2021 CORONARY ANGIOGRAPHY DOMINANCE:??? Left Dominant LEFT HEART ASSESSMENT Left Ventricular Ejection Fraction: by LV Gram 65 % Normal LV wall motion Normal Left Ventricular systolic function LEFT MAIN: Ostial 70% stenosis LEFT ANTERIOR DESCENDING ARTERY: PROX LAD: is occluded CIRCUMFLEX ARTERY: Mild disease with occlusion of the first obtuse marginal vessel. RIGHT CORONARY ARTERY: Nondominant vessel with diffuse disease GRAFTS: SWANSON graft to the Mid LAD is patent Saphenous Vein graft to the 1st Diagonal has a mid lesion of 40 % Saphenous Vein graft to the 1st Diagonal is patent Saphenous Vein graft to the 1st OM is totally occluded VALVE FINDINGS: Mitral Valve Prolapse Moderate Mitral Valve Insufficiency - Grade 3 Stress Test 03/22/2020 Conclusion: Exercise myocardial perfusion stress test with area of previous inferior lateral infarct and mild mid inferior ischemia. Excellent functional aerobic capacity. No clinical angina noted. This is a low risk scan. Labs: LDL Cholesterol 67 mg/dL (0-130) HDL Cholesterol 41 mg/dL (40-) Triglycerides 113 mg/dL (-199) INR 1.1 Diagnostics: Electrocardiogram Echocardiogram Pulmonary: No Data to Display Past Visits: No Data to Display Assessment and Plan Assessment and Plan (1) Mitral regurgitation: Status: Acute Plan: He does have significant mitral regurgitation. At this time it appears that he has developed paroxysmal atrial fibrillation his left atrium is dilated and so I would recommend that he be seen again at the [facility] for an evaluation of what should be done with his mitral valve further with a clip or some other modality to reduce the amount of regurgitation. He may start developing more shortness of breath his pulmonary pressures are higher and he may have more episodes of atrial fibrillation. I have expressed this to them they understand and agree to proceed and will be contacting Dr. Alegria at the [facility]. (2) Atrial fibrillation, new onset: Status: Acute Plan: He did have an episode of atrial fibrillation and he is maintaining sinus rhythm at this particular time. I would not recommend that we make any changes. (3) H/O coronary artery bypass surgery: Status: Resolved Comment: CABG x 3 SWANSON-LAD, SVG-D1, SVG-OM2 11/1994 Plan: He is status post coronary artery bypass surgery at this particular time. His bypasses were noted to be patent and he has also undergone PCI of the left main and ostial circumflex artery as noted above. (4) Essential hypertension: Status: Chronic Plan: He does have a history of hypertension and his blood pressure is under good control at this particular time. No plans to be made to make any changes. Thank you for allowing me to participate in the care of your patient. Please don't hesitate to call if any issues arise. 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 Hilton Jay, DO Hilton Jay DO Work Phone: Start: 05-03-2022 CT of thorax, abdomen and pelvis with contrast Dr. Hilton Jay Work Phone: Start: 05-03-2022 End: 05-03-2022 Procedure Note: See Note; NOTES: [facility] Imaging Services [address] [place] [address] CTA Chst, Abd, Pel W and/or WO MR#: [id number] Acct: [id number] Name: СЕРГЕЙ ALMEIDA Rep #: [id number] : 1945 M 77 From: Babak horner MD PCP: Dr. Hilton Jay, DO Status: REG ER Study: CTA Chst, Abd, Pel W and/or WO Date of Exam: 0 05/03/22 Exam# [id number] Ordering Dr: Miguelito Aguilera DO STUDY: CTA CHEST, ABDOMEN T PELVIS WITHOUT CONTRAST REASON FOR EXAM: Male, 77 years old. Abdominal pain -- r/o aneursym or dissection RADIATION DOSAGE (If Supplied By Facility): CTDIvol = ( 14.93 ) mGy, DLP = ( 869.43 ) mGycm TECHNIQUE: Transaxial imaging was performed without the administration of intravenous contrast material. Individualized dose optimization techniques were used for this CT. COMPARISON: No relevant priors. FINDINGS: CHEST The lungs are normal. There is no demonstrated pleural abnormality. Sternal cerclage wires and vascular clips are present from a prior sternotomy and coronary artery bypass graft procedure (CABG). There are calcifications of the coronary arteries. There are multiple small lymph nodes within the mediastinum, which are normal in size and morphology most compatible with reactive lymph hyperplasia. Normal hilar regions. Normal unenhanced pulmonary arteries. Normal aorta arch and descending thoracic aorta. Normal osseous structures. There is no demonstrated abnormality of the visualized upper abdomen. ABDOMEN The visualized lung bases are unremarkable. The visualized portions of the heart are within normal limits. Normal liver. Normal gallbladder and extrahepatic biliary system. Normal spleen. Normal pancreas. Normal bilateral adrenal glands. Normal right kidney. Normal left kidney. There is a moderate-sized hiatal hernia. Normal small intestine. There are multiple colonic diverticula consistent with diverticulosis. The appendix is visualized and appears normal. There is diffuse atherosclerotic calcification of the abdominal aorta, without a demonstrated aneurysm. Normal inferior vena cava. Normal retroperitoneum. Normal abdominal wall. There are diffuse degenerative changes of the visualized lumbar spine. PELVIS Normal urinary bladder. There is no pelvic fluid. There is no pelvic lymphadenopathy or mass lesion. There is diffuse atherosclerotic calcification of the pelvic arteries. CT/CTA Chst, Abd, Pel W and/or WO IMPRESSION: No evidence of aneurysmal dilatation of the thoracic or abdominal aorta. Atherosclerotic plaque formation throughout. No evidence of dissection. Moderate sized hiatal hernia. Electronically Signed: Babak Samuels MD at 11:00 EST Reading Location ID and State: [address] [place] [address] , Service support , CC: Dr. Hilton Jay DO; Dr. Miguelito Aguilera DO High [employer] Computer Science Teacher: Signed Hilton Jay DO Work Phone: Start: 12-20-2021 End: 12-20-2021 Procedure Note: See Note; NOTES: [facility] [place] [address] OFFICE VISIT Date of Service: 12/20/21 MR#: [id number] Acct: [id number] Name: СЕРГЕЙ ALMEIDA Rep #: [id number] : 1945 Provider: Dr. Dax Rodriguez MD Age/Sex: 76/M Location: [facility] [place] Status: Signed HPI HPI History of Present Illness Details: This is a 76-year-old gentleman who presents here today for a cardiovascular follow-up visit. He has a history of coronary artery disease status post coronary bypass surgery with a left internal mammary artery to left anterior descending artery saphenous vein graft to diagonal branch and obtuse marginal branch. He also has a history of mitral valve prolapse as well as mitral regurgitation. In February of 2016 he underwent a heart catheterization which demonstrated patency of his left internal mammary artery to the left anterior descending artery as well as the saphenous vein graft to diagonal branch. The saphenous vein graft to the obtuse marginal branch was occluded. Medical management was commended. He says that he has been somewhat short of breath. We did perform a stress test in February of 2020 where he exercised to 11.4 metabolic equivalents with mild mid inferior ischemia. His echocardiogram from 2020 also demonstrated an ejection fraction of 60%, stage III diastolic dysfunction, moderate left atrial enlargement, mild mitral valve prolapse with 1-2+ anteriorly directed mitral regurgitation. His most recent cardiac catheterization from 04/30/2021 demonstrated 70% stenosis in his left main ostial. Moderate mitral valve prolapse, and mitral valve insufficiency-grade 3. 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 He was referred to CT at [facility] for possible mitral valve clip. He recently underwent a successful LORENZA to his LAD on 09/14/21 at [facility]. He presented to the emergency room on September 18 with a swollen lip. It was thought he was having a reaction to his ramipril, and this was discontinued. He was sent to the [facility] where he underwent a successful IVUS guided PCI of the ostial left main into the circumflex artery with a 4.0 x 15 mm drug-eluting stent. He had a dedicated cardiac CT with 40 dynamic imaging and it demonstrated prolapse of the posterior leaflet. It was felt that with his preserved LV function and his BNP returning back to normal on as needed Lasix he should continue that with yearly echocardiograms. At this time we will not schedule him for mitral valve clip. From a cardiac standpoint, the patient is doing well. His accompanies him to the visit. He denies any palpitations, chest pain, pressure or heaviness. He denies SOB, Orthopnea, and PND. He does not have bleeding issues; no blood in urine, stool or nosebleeds. He denies any decrease in energy level, myalgias, or claudication. He does not have edema, or sudden weight gain. He does have an occasional lightheadedness with quick positional changes. He denies dizziness, syncopal or near syncopal episodes, and headaches. He does have an aching sensation in his right wrist to forearm, slightly swollen, and purple bruise from his cardiac catheterization-on September 14 at [facility]. Intake Vital Signs 12/20/21 10:54 12/20/21 10:55 12/20/21 11:48 Height 5 ft 10 in 5 ft 10 in Weight: 175 lb BMI 25.1 BP 158/81 H 150/73 H Respiration 16 Pulse 62 Pulse Oximetry (%) 98 Intake Visit Reasons: 3 M FU Allergies bee venom protein (honey bee) Allergy (Unknown, Verified 12/20/21 10:56) hives/anaphylaxis ramipril Allergy (Verified 12/20/21 10:56) Angioedema Medications cholecalciferol (vitamin D3) 25 mcg (1,000 unit) tablet 1,000 unit PO DAILY SUPPLEMENT 01/14/14 [History Confirmed 12/20/21] multivitamin with folic acid 400 mcg tablet 1 tab PO DAILY SUPPLEMENT 01/14/14 [History Confirmed 12/20/21] latanoprost 0.005 % eye drops 1 drp EACH EYE QHS EYES 01/03/17 [History Confirmed 12/20/21] omega-3 fatty acids-fish oil 684 mg-1,200 mg capsule,delayed release 1 ea PO DAILY SUPPLEMENT 01/03/17 [History Confirmed 12/20/21] cinnamon bark 500 mg capsule 500 mg PO DAILY 10/07/18 [History Confirmed 12/20/21] coenzyme [id number] E 100 mg-5 unit capsule 1 cap PO DAILY 10/07/18 [History Confirmed 12/20/21] magnesium oxide 500 mg capsule 500 mg PO DAILY 10/07/18 [History Confirmed 12/20/21] vitamin B complex 1 tab PO DAILY 10/07/18 [History Confirmed 12/20/21] nitroglycerin 0.4 mg sublingual tablet (Nitrostat) 0.4 mg sublingual Q5M PRN chest pain #25 tabs 12/07/19 [Rx Confirmed 12/20/21] aspirin 81 mg tablet,delayed release (Adult Low Dose Aspirin) 81 mg PO QDAY #90 tabs 03/15/21 [Rx Confirmed 12/20/21] furosemide 40 mg tablet (Lasix) 40 mg PO DAILY #90 tabs 03/15/21 [Rx Confirmed 12/20/21] metoprolol tartrate 25 mg tablet 12.5 mg PO BID BP #90 tabs 06/19/21 [Rx Confirmed 12/20/21] rosuvastatin 5 mg tablet 5 mg PO QHS cholesterol #90 tabs 08/20/21 [Rx Confirmed 12/20/21] levothyroxine 100 mcg tablet 100 mcg PO DAILY THYROID #90 tabs 09/06/21 [Rx Confirmed 12/20/21] clopidogrel 75 mg tablet 75 mg PO DAILY 09/18/21 [History Confirmed 12/20/21] epinephrine 0.3 mg/0.3 mL injection, auto-injector 0.3 mg IM X1 PRN 09/20/21 [History Confirmed 12/20/21] amlodipine 2.5 mg tablet 2.5 mg PO DAILY 12/20/21 [History] Ejection fraction %: 65 to 70 PFSH Medical History 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 Elevated PSA Essential hypertension Hyperlipidemia Hypothyroidism Nonrheumatic mitral (valve) insufficiency Nonrheumatic mitral (valve) prolapse Old inferolateral myocardial infarction Prostate cancer Urgency-frequency syndrome Surgical History H/O coronary artery bypass surgery (11/1994) H/O prostatectomy History of coronary artery stent placement (09/14/21) History of left heart catheterization (04/30/21) Family History Father , of Rohini's disease Rohini's disease Mother , Age 60 of [place] CAD (coronary artery disease) Myocardial infarction Brother CAD (coronary artery disease) history of cabg Brother CAD (coronary artery disease) Stented coronary artery Diabetes Sister CAD (coronary artery disease) Myocardial infarction Hypertension Social History Smoking Status: Former smoker alcohol intake: current alcohol intake frequency: other Alcohol type: beer and wine caffeine: Yes Type: coffee Number of servings: 3 ROS Const Const: Negative for fatigue, weakness, headache(s), frequent falls, difficulty sleeping or excessive sweating Eyes Eyes: Negative for loss of peripheral vision, transient loss of vision, blurry vision, double vision or tunnel vision ENT ENT: Negative for headache(s), dizziness, Nosebleed/epistaxis or balance problems Cardio Chest Pain: No Palpitations: No Edema: None Muscle aches with walking: None Resp Respiratory: Negative for SOB with activity, SOB at rest, SOB orthopnea SOB lying down, Cough or paroxysmal nocturnal dyspnea GI GI: Negative nausea, vomiting, heartburn or black,tarry stools : Negative for hematuria Musc Musc: Negative for muscle aches/ myalgia, muscle weakness, joint pain or balance problems Skin Skin: Negative non-healing lesions, rash or unusual bruising Neuro Neuro: Negative for dizziness, lightheadedness, near syncope, syncope, orthostatic symptoms, frequent falls, headache(s), weakness, confusion, memory loss, blurry vision, double vision, vertigo or lack of coordination Santino Hematologic/Lymphatic: Negative for easy bleeding or easy bruising Endo Endo: Negative for fatigue, excessive sweating, flushing or increased thirst/drinking Psych Psych: Negative for anxiety or depression Allergy Allergy/Immunology: Negative for hives and Negative for rash Cardiology Exam Const Appearance: cooperative, healthy appearing, no acute distress, well developed and well groomed Nutritional Appearance: average body habitus and well nourished Orientation: alert, awake and oriented x3 Head Head: normal to inspection, normocephalic and atraumatic Ears: hearing grossly normal bilaterally and external ears normal Nose: external nose normal, nares normal, nasal mucous membranes and turbinates normal, septum normal and no nasal discharge Face and Sinus: face symmetric Mouth: oral mucosae normal, tongue normal, oropharynx normal and moist mucous membranes Teeth and gingiva: dentition normal Throat: posterior oropharynx normal, tonsils normal and uvula midline Eyes General: appearance normal, both eyes and all related structures Eyelids: eyelids normal Conjunctivae: conjunctivae normal Pupils: PERRL, normal by confrontation and accommodation normal EOM: EOM intact bilaterally Neck Neck: normal visual inspection, trachea midline and no JVD JVD: +5 Carotids: normal carotid upstroke and bounding pulses Chest Chest inspection: normal inspection of the chest, symmetric chest movement and normal respiratory effort Auscultation: Bilateral: Clear to Auscultation Cardio Palpation: normal PMI Rate: regular rate Rhythm: regular rhythm Heart sounds: S1 normal, S2 normal, murmur and normal, physiologic split S2; Negative rub or gallop Murmur: Grade 3/6, harsh, holosystolic and ELIZABETH loudest at apex -> axilla GI GI: normal to inspection, soft, no hepatosplenomegaly and bowel sounds present Neuro General: patient alert, patient awake, patient oriented x3, gait normal, moves all extremities and no focal sensory deficit Skin Skin: no rashes or lesions noted and ecchymosis (right forearm) Extremities Pulses: Normal: Right Femoral Pulse, Left Femoral Pulse, Right Dorsalis Pedis Pulse, Left Dorsalis Pedis Pulse, Right Posterior Tibial Pulse, Left Posterior Tibial Pulse, Right Radial Pulse and Left Radial Pulse Lower Extremity Edema: None: Bilateral Musculoskel Musculoskeletal: No joint tenderness Psych Psychological: normal affect Supplemental Info Supplemental Information CORONARY INTERVENTION 09/14/2021 Procedure Narrative: Lesion 1: LMT-Proximal Procedures Performed: 1. Successful IVUS guided PCI of the ostial left main into LCx with a 4.0 x 15 mm Xience LORENZA; post-dilated with a 4.5 x12 mm NC balloon. Procedure Summary: Indication: stable angina, ischemic MR Culprit Stenosis: ostial left main Pre CARLOTA Flow 3 Post CARLOTA Flow: 3 PROCEDURAL DETAILS Access: 5/6 Fr right radial artery Guide Catheter(s): 6 Fr JL 3.5 short tip Guidewire(s): Addi blue Other Equipment: [place] IVUS Hemostasis: vasc band Anticoagulation: UFH Additional Procedural Medications: Sedation Radiation: Total DoseDose Area ProductTotal Exposure Vpww8698.60 mGy47.92 Gy*cm???1137.00 sec PROCEDURAL NARRATIVE: We engaged the LMCA with the 6 Fr JL 3.5 short tip guide catheter. After administering heparin to a goal ACT of >250s, we advanced a Addi blue coronary wire to the distal LCx.PTCA with a 2.0 x 8 mm semi-compliant balloon was performed, followed by PTCA with a 3.0 x 10 mm [place] cutting balloon. Stenting with a 4.0 x 15 mm Xience LORENZA was performed. Intracoronary imaging with [place] IVUS revealed optimal landing of the stent at the left main ostium, no evidence of edge dissection, and suboptimal expansion. Post-dilation with a 4.5 x 12 mm NC balloon was performed. Final angiography showed no evidence of dissection or perforation. There was CARLOTA 3 flow and 0% residual stenosis. ??? CT CARDIAC W IVCON??? 08/08/2021 IMPRESSION: 1. ??? Dedicated 4D dynamic imaging of the mitral valve demonstrates a bileaflet mitral valve with prolapse of the posterior leaflet. ???The leaflets are mildly thickened, although not calcified. There is no significant annular or sub-annular calcification. Annular measurements as per the body of the report. Using the end-systolic phase, and simulating TMVR with a 23 mm John S3 valve with 1/3 of the valve above the annular plane (atrial), the estimated curtis-LVOT area is 2.1 cm2. 2. ???Normal caliber thoracic aorta with aortic atherosclerotic changes as described in the body of the report. ???No acute aortic pathology identified...The aortic valve is trileaflet and free bones from calcifications. ???The thoracic aorta is normal in course, caliber, and contour. ???There is no acute aortic pathology. ???The arch vessel branching pattern is normal, and the arch branch vessels are all patent in their proximal portions. 3. ???Patient with coronary artery disease status post CABG. ???One of the bypass grafts to the obtuse marginal branch is occluded. TRANSESOPHAGEAL ECHO 08/08/2021 CONCLUSIONS: - Exam indication: Mitral Valve Assessment - The left ventricle is normal in size. Left ventricular systolic function is normal. EF = 60 ??? 5% (visual est.) - The right ventricle is normal in size. Right ventricular systolic function is normal. - The left atrial cavity is dilated. - The right atrial cavity is dilated. 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 Regurgitant orifice area (PISA) ???is 0.40 cm???. P2 prolapse. - There is no patent foramen ovale as detected by Doppler. - Large (1.4cm) highly mobile echodensity (likely thrombus / complex atheroma) in the proximal descending aorta (clip 73). ECHOCARDIOGRAM 08/08/2021 CONCLUSIONS: - Exam indication: Pre-up Mitral Clip - The left ventricle is mildly dilated. Left ventricular systolic function is hyperdynamic. EF = 74 ??? 5% (2D biplane) Left ventricular diastolic function was not evaluated due to >2+ MR. - The right ventricle is normal in size. Right ventricular systolic function is normal. - The left atrial cavity is dilated. 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 Regurgitant orifice area (PISA) is 0.41 cm???. MR RV by PISA 93 mL (likely overestimated d/t MR predominance in late systole). MR RV by Quant Doppler 46 mL. - Estimated right ventricular systolic pressure is 43 mmHg consistent with mild pulmonary hypertension. Estimated right atrial pressure is 3 mmHg based on IVC CARDIAC CATHETERIZATION 04/30/2021 CORONARY ANGIOGRAPHY DOMINANCE:??? Left Dominant LEFT HEART ASSESSMENT Left Ventricular Ejection Fraction: by LV Gram 65 % Normal LV wall motion Normal Left Ventricular systolic function LEFT MAIN: Ostial 70% stenosis LEFT ANTERIOR DESCENDING ARTERY: PROX LAD: is occluded CIRCUMFLEX ARTERY: Mild disease with occlusion of the first obtuse marginal vessel. RIGHT CORONARY ARTERY: Nondominant vessel with diffuse disease GRAFTS: ???SWANSON graft to the Mid LAD is patent Saphenous Vein graft to the 1st Diagonal has a mid lesion of 40 % Saphenous Vein graft to the 1st Diagonal is patent Saphenous Vein graft to the 1st OM is totally occluded VALVE FINDINGS: Mitral Valve Prolapse Moderate Mitral Valve Insufficiency - Grade 3 Stress Test 03/22/2020 Conclusion: Exercise myocardial perfusion stress test with area of previous inferior lateral infarct and mild mid inferior ischemia. Excellent functional aerobic capacity. No clinical angina noted. This is a low risk scan. Echocardiogram 03/22/2020 Interpretation Summary Normal LV size. Left ventricular systolic function is normal. The estimated ejection fraction is 60 %. Stage 3 diastolic dysfunction. The left atrium is moderately enlarged. Mild (1+) aortic valve insufficiency. Mild-Moderate (1-2+) anteriorly directed mitral valve insufficiency. Mild mitral valve prolapse, posterior leaflet Compared to previous study, the left ventricular systolic function is the same.. Compared to prior study, there is no significant change. Laboratory Tests 12/18/21 10:35 Triglycerides 113 Cholesterol 131 LDL Cholesterol 67 HDL Cholesterol 41 Labs: LDL Cholesterol 67 mg/dL (0-130) HDL Cholesterol 41 mg/dL (40-) Triglycerides 113 mg/dL (-199) VLDL Cholesterol 23 mg/dL (5-40) Diagnostics: Electrocardiogram Cardiac Catheterization Chest X-Ray Pulmonary: No Data to Display Assessment and Plan Assessment and Plan (1) History of coronary artery stent placement: Status: Acute Comment: PCI of the ostial left main into LCx with a 4.0 x 15 mm Xience LORENZA 09/14/2021 Plan: He is status post angioplasty and stenting of the left main coronary artery. He appears to doing well at this time my recommendation is for us to continue the same with no changes. (2) H/O coronary artery bypass surgery: Status: Resolved Comment: CABG x 3 SWANSON-LAD, SVG-D1, SVG-OM2 11/1994 Plan: He is status post coronary bypass surgery. He underwent angioplasty and stenting of his left main coronary artery. No changes will be made at this particular time. (3) Nonrheumatic mitral (valve) prolapse: Status: Chronic Plan: He does have mitral valve prolapse with 3-4+ holosystolic mitral regurgitation. He was seen at the [facility] and it was felt that we should continue with medical therapy at this time. He will continue to use as needed Lasix. (4) Essential hypertension: Status: Chronic Plan: His blood pressure is under good control at this time I would not recommend we make any major changes. Thank you for allowing me to participate in the care of your patient. Please don't hesitate to call if any issues arise. 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 Hilton Jay, DO Hilton Jay DO Work Phone: Start: 09-20-2021 End: 02-04-2022 Procedure Note: See Note; NOTES: [facility] [place] [address] US Art Duplex Unilat UP Extrem 09/20/21 1508 MR#: [id number] Acct: [id number] Name: СЕРГЕЙ ALMEIDA Rep #: [id number] : 1945 76 From: Candelario Joy MD Attending Dr: Rosanne Fernández, ENVIRONMENTAL CONSULTANT-C Status: [facility] Ordering Dr: Rosanne Fernández ENVIRONMENTAL CONSULTANT ENVIRONMENTAL CONSULTANT-C Date: 09/20/21 Location: CVS Sex: M C Admitted: Reason For Study: Post cardiac cath radial artery 09/14/2021 RIGHT Radial artery, prox, 0.29 x 0.29 cm, 60 cm/sec. Radial artery, mid, 0.32 x 0.32 cm, 55.6 cm/sec. Radial artery, distal, 0.29 x 0.30 cm, 49 cm/sec. Ulnar artery, distal, 0.19 x 0.20 cm, 78.6 cm/sec. Brachial artery, distal, 0.49 x 0.49 cm, 123.5 cm/sec. Ulnar, Radial and Cephalic veins are compressible. No evidence of pseudoaneurysm or occlusion noted. Preliminary to Rosanne Fernández ENVIRONMENTAL CONSULTANT-C. /US Art Duplex Unilat UP Extrem Interpretation Summary Right radial, ulnar, and brachial arteries patent with normal velocities and no evidence of pseudoaneurysm or fistula. Right radial, ulnar, cephalic veins patent and compressible. _ Ordering Physician: Rosanne Fernández Referring Physician: Hilton Jay M.D. Performed By: Sosa Fuentes RVT 09/21/212141 Date Candelario Joy MD CC: RAMBO Fernández; Dr. Hilton Jay, Date Dictated: 09/20/21 1508 Date Transcribed: 09/21/212141 [employer] Computer [employer] Teacher: Signed Hilton Jay DO Work Phone: Start: 09-20-2021 End: 09-20-2021 Procedure Note: See Note; NOTES: [facility] [address] [place] [address] OFFICE VISIT Date of Service: 09/20/21 MR#: [id number] Acct: [id number] Name: СЕРГЕЙ ALMEIDA Rep #: [id number] : 1945 Provider: RAMBO Franco rts Age/Sex: 76/M Location: [facility] Status: Signed HPI HPI History of Present Illness Details: This is a 76-year-old gentleman who presents here today for a cardiovascular follow-up visit. He has a history of coronary artery disease status post coronary bypass surgery with a left internal mammary artery to left anterior descending artery saphenous vein graft to diagonal branch and obtuse marginal branch. He also has a history of mitral valve prolapse as well as mitral regurgitation. In February of 2016 he underwent a heart catheterization which demonstrated patency of his left internal mammary artery to the left anterior descending artery as well as the saphenous vein graft to diagonal branch. The saphenous vein graft to the obtuse marginal branch was occluded. Medical management was commended. He says that he has been somewhat short of breath. We did perform a stress test in February of 2020 where he exercised to 11.4 metabolic equivalents with mild mid inferior ischemia. His echocardiogram from 2020 also demonstrated an ejection fraction of 60%, stage III diastolic dysfunction, moderate left atrial enlargement, mild mitral valve prolapse with 1-2+ anteriorly directed mitral regurgitation. His most recent cardiac catheterization from 04/30/2021 demonstrated 70% stenosis in his left main ostial. Moderate mitral valve prolapse, and mitral valve insufficiency-grade 3. 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 He was referred to CT at [facility] for possible mitral valve clip. He recently underwent a successful LORENZA to his LAD on 09/14/21 at [facility]. He states he is scheduled to see CT again in October to schedule his mitral valve surgery. He presented to the emergency room on September 18 with a swollen lip. It was thought he was having a reaction to his ramipril, and this was discontinued. From a cardiac standpoint, the patient is doing well. His accompanies him to the visit. He denies any palpitations, chest pain, pressure or heaviness. He denies SOB, Orthopnea, and PND. He does not have bleeding issues; no blood in urine, stool or nosebleeds. He denies any decrease in energy level, myalgias, or claudication. He does not have edema, or sudden weight gain. He does have an occasional lightheadedness with quick positional changes. He denies dizziness, syncopal or near syncopal episodes, and headaches. He does have an aching sensation in his right wrist to forearm, slightly swollen, and purple bruise from his cardiac catheterization-on September 14 at [facility]. Intake Vital Signs 04/30/21 08:19 09/18/21 10:10 09/20/21 08:33 09/20/21 08:37 Height 5 ft 10 in 5 ft 10 in 5 ft 10 in 5 ft 10 in Weight: 175 lb 173 lb BMI 25.1 24.8 BP 133/77 H 134/83 H Blood Pressure Location Lt brachial Position Sitting Respiration 18 18 Pulse 69 55 L Pulse Source Monitor Temp 97.9 F Pulse Oximetry (%) 99 99 Intake Visit Reasons: s/p hosp Bilingual Office Assistant Required: No Is patient in pain?: No Allergies bee venom protein (honey bee) Allergy (Unknown, Verified 09/20/21 08:54) hives/anaphylaxis ramipril Allergy (Verified 09/20/21 08:54) Angioedema Medications cholecalciferol (vitamin D3) 25 mcg (1,000 unit) tablet 1,000 unit PO DAILY SUPPLEMENT 01/14/14 [History Confirmed 09/20/21] multivitamin with folic acid 400 mcg tablet 1 tab PO DAILY SUPPLEMENT 01/14/14 [History Confirmed 09/20/21] latanoprost 0.005 % eye drops 1 drp EACH EYE QHS EYES 01/03/17 [History Confirmed 09/20/21] omega-3 fatty acids-fish oil 684 mg-1,200 mg capsule,delayed release 1 ea PO DAILY SUPPLEMENT 01/03/17 [History Confirmed 09/20/21] cinnamon bark 500 mg capsule 500 mg PO DAILY 10/07/18 [History Confirmed 09/20/21] coenzyme [id number] E 100 mg-5 unit capsule 1 cap PO DAILY 10/07/18 [History Confirmed 09/20/21] magnesium oxide 500 mg capsule 500 mg PO DAILY 10/07/18 [History Confirmed 09/20/21] vitamin B complex 1 tab PO DAILY 10/07/18 [History Confirmed 09/20/21] nitroglycerin 0.4 mg sublingual tablet (Nitrostat) 0.4 mg sublingual Q5M PRN chest pain #25 tabs 12/07/19 [Rx Confirmed 09/20/21] aspirin 81 mg tablet,delayed release (Adult Low Dose Aspirin) 81 mg PO QDAY #90 tabs 03/15/21 [Rx Confirmed 09/20/21] furosemide 40 mg tablet (Lasix) 40 mg PO DAILY #90 tabs 03/15/21 [Rx Confirmed 09/20/21] metoprolol tartrate 25 mg tablet 12.5 mg PO BID BP #90 tabs 06/19/21 [Rx Confirmed 09/20/21] rosuvastatin 5 mg tablet 5 mg PO QHS cholesterol #90 tabs 08/20/21 [Rx Confirmed 09/20/21] levothyroxine 100 mcg tablet 100 mcg PO DAILY THYROID #90 tabs 09/06/21 [Rx Confirmed 09/20/21] clopidogrel 75 mg tablet 75 mg PO DAILY 09/18/21 [History Confirmed 09/20/21] epinephrine 0.3 mg/0.3 mL injection, auto-injector 0.3 mg IM X1 PRN 09/20/21 [History Confirmed 09/20/21] [facility] Medical History (Reviewed 09/20/21 @ 12:55 by Rosanne Fernández ENVIRONMENTAL CONSULTANT, ENVIRONMENTAL CONSULTANT-C) 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 Elevated PSA Essential hypertension Hyperlipidemia Hypothyroidism Nonrheumatic mitral (valve) insufficiency Nonrheumatic mitral (valve) prolapse Old inferolateral myocardial infarction Prostate cancer Urgency-frequency syndrome Surgical History H/O coronary artery bypass surgery (11/1994) H/O prostatectomy History of left heart catheterization (04/30/21) Family History Father , of Burleson's disease Burleson's disease Mother , Age 60 of [place] CAD (coronary artery disease) Myocardial infarction Brother CAD (coronary artery disease) history of cabg Brother CAD (coronary artery disease) Stented coronary artery Diabetes Sister CAD (coronary artery disease) Myocardial infarction Hypertension Social History Smoking Status: Former smoker alcohol intake: current alcohol intake frequency: other Alcohol type: beer and wine caffeine: Yes Type: coffee Number of servings: 3 ROS Const Const: Negative for fatigue, weakness, fever(s), headache(s), chills, frequent falls, weight gain or weight loss Eyes Eyes: Negative for blind spots, loss of peripheral vision, transient loss of vision, blurry vision, change in vision, double vision, floaters or tunnel vision ENT ENT: Negative for headache(s), dizziness, Nosebleed/epistaxis, balance problems or neck pain Cardio Chest Pain: No Palpitations: No Edema: None Muscle aches with walking: None Resp Respiratory: Negative for SOB with activity, SOB at rest or SOB orthopnea SOB lying down GI GI: Negative nausea, vomiting, heartburn, bloating, vomiting blood/hematemesis, bright, red blood in stools or black,tarry stools Musc Musc: Negative for muscle aches/ myalgia, muscle weakness, joint pain or balance problems Skin Skin: Positive for unusual bruising (right forearm) Neuro Neuro: Positive for lightheadedness (occasional with positional changes); Negative for dizziness, near syncope, syncope, orthostatic symptoms, frequent falls, headache(s), weakness, blurry vision or double vision Santino Hematologic/Lymphatic: Negative for easy bleeding or easy bruising Endo Endo: Negative for fatigue Cardiology Exam Const Appearance: cooperative, healthy appearing, no acute distress, well developed and well groomed Nutritional Appearance: average body habitus and well nourished Orientation: alert, awake and oriented x3 Head Head: normal to inspection, normocephalic and atraumatic Ears: hearing grossly normal bilaterally and external ears normal Nose: external nose normal, nares normal, nasal mucous membranes and turbinates normal, septum normal and no nasal discharge Face and Sinus: face symmetric Mouth: oral mucosae normal, tongue normal, oropharynx normal and moist mucous membranes Teeth and gingiva: dentition normal Throat: posterior oropharynx normal, tonsils normal and uvula midline Eyes General: appearance normal, both eyes and all related structures Eyelids: eyelids normal Conjunctivae: conjunctivae normal Pupils: PERRL, normal by confrontation and accommodation normal EOM: EOM intact bilaterally Neck Neck: normal visual inspection, trachea midline and no JVD JVD: +5 Carotids: normal carotid upstroke and bounding pulses Chest Chest inspection: normal inspection of the chest, symmetric chest movement and normal respiratory effort Auscultation: Bilateral: Clear to Auscultation Cardio Palpation: normal PMI Rate: regular rate Rhythm: regular rhythm Heart sounds: S1 normal, S2 normal, murmur and normal, physiologic split S2; Negative rub or gallop Murmur: Grade 3/6, harsh, holosystolic and ELIZABETH loudest at apex -> axilla GI GI: normal to inspection, soft, no hepatosplenomegaly and bowel sounds present Neuro General: patient alert, patient awake, patient oriented x3, gait normal, moves all extremities and no focal sensory deficit Skin Skin: no rashes or lesions noted and ecchymosis (right forearm) Extremities Pulses: Normal: Right Femoral Pulse, Left Femoral Pulse, Right Dorsalis Pedis Pulse, Left Dorsalis Pedis Pulse, Right Posterior Tibial Pulse, Left Posterior Tibial Pulse, Right Radial Pulse and Left Radial Pulse Lower Extremity Edema: None: Bilateral Musculoskel Musculoskeletal: No joint tenderness Psych Psychological: normal affect Supplemental Info Supplemental Information CT CARDIAC W IVCON???08/08/2021 IMPRESSION: 1. ??? Dedicated 4D dynamic imaging of the mitral valve demonstrates a bileaflet mitral valve with prolapse of the posterior leaflet. ???The leaflets are mildly thickened, although not calcified. There is no significant annular or sub-annular calcification. Annular measurements as per the body of the report. Using the end-systolic phase, and simulating TMVR with a 23 mm John S3 valve with 1/3 of the valve above the annular plane (atrial), the estimated curtis-LVOT area is 2.1 cm2. 2. ???Normal caliber thoracic aorta with aortic atherosclerotic changes as described in the body of the report. ???No acute aortic pathology identified...The aortic valve is trileaflet and free bones from calcifications. ???The thoracic aorta is normal in course, caliber, and contour. ???There is no acute aortic pathology. ???The arch vessel branching pattern is normal, and the arch branch vessels are all patent in their proximal portions. 3. ???Patient with coronary artery disease status post CABG. ???One of the bypass grafts to the obtuse marginal branch is occluded. TRANSESOPHAGEAL ECHO 08/08/2021 CONCLUSIONS: - Exam indication: Mitral Valve Assessment - The left ventricle is normal in size. Left ventricular systolic function is normal. EF = 60 ??? 5% (visual est.) - The right ventricle is normal in size. Right ventricular systolic function is normal. - The left atrial cavity is dilated. - The right atrial cavity is dilated. 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 Regurgitant orifice area (PISA) ???is 0.40 cm???. P2 prolapse. - There is no patent foramen ovale as detected by Doppler. - Large (1.4cm) highly mobile echodensity (likely thrombus / complex atheroma) in the proximal descending aorta (clip 73). ECHOCARDIOGRAM 08/08/2021 CONCLUSIONS: - Exam indication: Pre-up Mitral Clip - The left ventricle is mildly dilated. Left ventricular systolic function is hyperdynamic. EF = 74 ??? 5% (2D biplane) Left ventricular diastolic function was not evaluated due to >2+ MR. - The right ventricle is normal in size. Right ventricular systolic function is normal. - The left atrial cavity is dilated. 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 Regurgitant orifice area (PISA) is 0.41 cm???. MR RV by PISA 93 mL (likely overestimated d/t MR predominance in late systole). MR RV by Quant Doppler 46 mL. - Estimated right ventricular systolic pressure is 43 mmHg consistent with mild pulmonary hypertension. Estimated right atrial pressure is 3 mmHg based on IVC CARDIAC CATHETERIZATION 04/30/2021 CORONARY ANGIOGRAPHY DOMINANCE:??? Left Dominant LEFT HEART ASSESSMENT Left Ventricular Ejection Fraction: by LV Gram 65 % Normal LV wall motion Normal Left Ventricular systolic function LEFT MAIN: Ostial 70% stenosis LEFT ANTERIOR DESCENDING ARTERY: PROX LAD: is occluded CIRCUMFLEX ARTERY: Mild disease with occlusion of the first obtuse marginal vessel. RIGHT CORONARY ARTERY: Nondominant vessel with diffuse disease GRAFTS: ???SWANSON graft to the Mid LAD is patent Saphenous Vein graft to the 1st Diagonal has a mid lesion of 40 % Saphenous Vein graft to the 1st Diagonal is patent Saphenous Vein graft to the 1st OM is totally occluded VALVE FINDINGS: Mitral Valve Prolapse Moderate Mitral Valve Insufficiency - Grade 3 Stress Test 03/22/2020 Conclusion: Exercise myocardial perfusion stress test with area of previous inferior lateral infarct and mild mid inferior ischemia. Excellent functional aerobic capacity. No clinical angina noted. This is a low risk scan. Echocardiogram 03/22/2020 Interpretation Summary Normal LV size. Left ventricular systolic function is normal. The estimated ejection fraction is 60 %. Stage 3 diastolic dysfunction. The left atrium is moderately enlarged. Mild (1+) aortic valve insufficiency. Mild-Moderate (1-2+) anteriorly directed mitral valve insufficiency. Mild mitral valve prolapse, posterior leaflet Compared to previous study, the left ventricular systolic function is the same.. Compared to prior study, there is no significant change. Laboratory Tests 12/06/20 10:35 Triglycerides 115 Cholesterol 140 LDL Cholesterol 77 HDL Cholesterol 40 Labs: LDL Cholesterol 74 mg/dL (0-130) HDL Cholesterol 41 mg/dL (40-) Triglycerides 110 mg/dL (-199) VLDL Cholesterol 22 mg/dL (5-40) Diagnostics: Electrocardiogram Transesophageal Echocardiogram Cardiac Catheterization Chest X-Ray Pulmonary: No Data to Display Assessment and Plan Assessment and Plan (1) Angioedema due to angiotensin converting enzyme inhibitor (PORFIRIO-I): Status: Acute Plan: Patient has a history of angioedema due to ramipril. This was since discontinued. He denies any recent symptoms or events. His blood pressure is well controlled at this time. He will continue to monitor for any concerning symptoms. (2) H/O coronary artery bypass surgery: Status: Resolved Comment: CABG x 3 SWANSON-LAD, SVG-D1, SVG-OM2 11/1994 Plan: Patient has a history of coronary artery disease with bypass surgery in 1994. He recently underwent a successful drug-eluting stent to his LAD at [facility] on 09/14/21. He appears stable at this time, denies any recent symptoms or events. At this time, he will continue with his current medical therapy, along with aggressive risk factor and lifestyle modifications. Patient will proceed with cardiac rehab. (3) Nonrheumatic mitral (valve) prolapse: Status: Chronic Plan: Patient has a history of nonrheumatic mitral valve prolapse. His most recent DARCY 08/08/2021 demonstrated severe 4+ holosystolic mitral valve regurgitation due to prolapse. He will continue to follow with [facility] at his next upcoming appointment in October. (4) Essential hypertension: Status: Chronic Plan: Patient has a history of hypertension. His blood pressure is well controlled at this time. He will continue with his current medical therapy, along with monitoring blood pressures at home. (5) Hyperlipidemia: Status: Chronic Qualifiers: Hyperlipidemia type: pure hypercholesterolemia Qualified Code(s): E78.00 - Pure hypercholesterolemia, unspecified; E78.0 - Pure hypercholesterolemia Plan: Patient has a history of hyperlipidemia. His most recent lipid panel from 06/07/2021: cholesterol 137, HDL 41, LDL 74, triglycerides 110. He will continue with rosuvastatin 5 mg daily, along with aggressive risk factor and lifestyle modifications. (6) Pain and swelling of right forearm: Status: Acute Plan: Patient has complaints of increased bruising, swelling, and soreness to his right forearm post cardiac catheterization. Patient has a strong radial pulse. Patient's would like to have an ultrasound to rule out DVT. This will be ordered. We will continue to monitor. Orders: Orders Upper Extremity Arterial Study Today M79.631 - Pain in right forearm, M79.89 - Other specified soft tissue disorders Plan Details Additional Comments: Patient will follow up in 3 to 4 months, or sooner if needed. Thank you for allowing me to participate in the care of your patient. Please don't hesitate to call if any issues arise. This note was generated using a voice recognition system and there may be incorrect words, spelling, or punctuation that were not noted when reviewing the office note prior to saving. Portions of this documentation were copied and pasted from previous office visit notes to provide a cohesive continuity of the history. The note has been reviewed, edited, and updated, as necessary. Follow Up: Move 10/01 appointment out to per [employer]IEF DESIGN (DRAFTER [employer]IEF DES[employer]) Coding Level of Care Code Off vis,est,level 4 Diagnoses Angioedema due to angiotensin converting enzyme inhibitor (PORFIRIO-I) T78.3XXA; T46.4X5A H/O coronary artery bypass surgery Z95.1 Nonrheumatic mitral (valve) prolapse I34.1 Essential hypertension I10 Hyperlipidemia E78.00; E78.0 Hyperlipidemia type: pure hypercholesterolemia Pain and swelling of right forearm M79.631; M79.89 Coding Level of Care Code Off vis,est,level 4 Diagnoses Angioedema due to angiotensin converting enzyme inhibitor (PORFIRIO-I) T78.3XXA; T46.4X5A H/O coronary artery bypass surgery Z95.1 Nonrheumatic mitral (valve) prolapse I34.1 Essential hypertension I10 Hyperlipidemia E78.00; E78.0 Hyperlipidemia type: pure hypercholesterolemia Pain and swelling of right forearm M79.631; M79.89 09/20/21 1314 <Electronically signed by Rosanne Fernández NP ENVIRONMENTAL CONSULTANT-C> Date Rosanne Fernández NP ENVIRONMENTAL CONSULTANT-C 09/20/21 1401<Electronically signed by Dax Rodriguez MD> Cosigner Signature: Date (if applicable) Dax Rodriguez MD CC: DO Hilotn Myles DO Work Phone: Start: 09-18-2021 End: 09-18-2021 Emergency Department Summary Comments: See Note; NOTES: [facility] Medical Records Department [address] [place] [address] Emergency Department Summary 09/18/21 MR#: [id number] Acct: [id number] Name: СЕРГЕЙ ALMEIDA Rep #: [id number] : 1945 76 From: Roc Bee MD PCP: Dr. Hilton Jay, DO Status:REG ER Location: ED HPI History of Present Illness Chief Complaint: General Illness Informant: patient and spouse/S.O. Onset/Context/Timing Onset: Today Context: Gradual Onset Timing: Continuous Quality: painless swelling Location: lower lip, the right half Current Severity: Mild Maximum Severity: Moderate Worsened by: nothing Relieved by: nothing, tried no specific treatments Associated Symptoms Associated Symptoms: none Narrative Narrative: Patient had a recent heart catheterization and left main artery stent at [facility] after being referred there for his mitral valve prolapse and the possibility of a mitral clip. He was told that he needed the coronary artery fixed before he could be considered for a clip. The only new medication he was placed on subsequently was clopidogrel. This morning, he woke up with a swollen right lower lip. No pain. No tongue involvement, no throat swelling, no trouble talking or swallowing. He denies having any trouble speaking or understanding others, no numbness tingling weakness in an arm or leg or trouble with his balance that is new. He took his usual morning meds which include ramipril which he has been on for years. The swelling was persistent this morning, but now that they are here in the emergency department, he and his both agree that it is much improved compared to what it was before. He denies any other symptoms right now. 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 Elevated PSA Essential hypertension Hyperlipidemia Hypothyroidism Nonrheumatic mitral (valve) insufficiency Nonrheumatic mitral (valve) prolapse Old inferolateral myocardial infarction Prostate cancer Urgency-frequency syndrome Home Medications cholecalciferol (vitamin D3) 25 mcg (1,000 unit) tablet 1,000 unit PO DAILY SUPPLEMENT 01/14/14 [History Last Taken 10/06/18] multivitamin with folic acid 400 mcg tablet 1 tab PO DAILY SUPPLEMENT 01/14/14 [History Last Taken 10/06/18] latanoprost 0.005 % eye drops 1 drp EACH EYE QHS EYES 01/03/17 [History Last Taken 10/06/18] omega-3 fatty acids-fish oil 684 mg-1,200 mg capsule,delayed release 1 ea PO DAILY SUPPLEMENT 01/03/17 [History Last Taken 10/06/18] cinnamon bark 500 mg capsule 500 mg PO DAILY 10/07/18 [History Last Taken 10/06/18] coenzyme B21-hakeyzk E 100 mg-5 unit capsule 1 cap PO DAILY 10/07/18 [History Last Taken 10/06/18] magnesium oxide 500 mg capsule 500 mg PO DAILY 10/07/18 [History Last Taken 10/06/18] vitamin B complex 1 tab PO DAILY 10/07/18 [History Last Taken 10/06/18] epinephrine 0.3 mg/0.3 mL injection, auto-injector 0.3 mg IM X1 01/19/19 [History Last Taken Unknown] nitroglycerin 0.4 mg sublingual tablet (Nitrostat) 0.4 mg sublingual Q5M PRN chest pain #25 tabs 12/07/19 [Rx Last Taken Unknown] aspirin 81 mg tablet,delayed release (Adult Low Dose Aspirin) 81 mg PO QDAY #90 tabs 03/15/21 [Rx Last Taken 04/30/21] furosemide 40 mg tablet (Lasix) 40 mg PO DAILY #90 tabs 03/15/21 [Rx Last Taken Unknown] metoprolol tartrate 25 mg tablet 12.5 mg PO BID BP #90 tabs 06/19/21 [Rx Last Taken Unknown] rosuvastatin 5 mg tablet 5 mg PO QHS cholesterol #90 tabs 08/20/21 [Rx Last Taken Unknown] levothyroxine 100 mcg tablet 100 mcg PO DAILY THYROID #90 tabs 09/06/21 [Rx Last Taken Unknown] clopidogrel 75 mg tablet 75 mg PO DAILY 09/18/21 [History Last Taken Unknown] Allergy/AdvReac Type Severity Reaction Status Date / Time bee venom protein (honey bee) Allergy Unknown hives/anaph Verified 09/18/21 10:13 ylaxis Family History Father , of Burleson's disease Rohini's disease Mother , Age 60 of [place] CAD (coronary artery disease) Myocardial infarction Brother CAD (coronary artery disease) history of cabg Brother CAD (coronary artery disease) Stented coronary artery Diabetes Sister CAD (coronary artery disease) Myocardial infarction Hypertension Surgical History H/O coronary artery bypass surgery (11/1994) H/O prostatectomy History of left heart catheterization (04/30/21) Social History Smoking Status: Former smoker alcohol intake: current alcohol intake frequency: other Alcohol type: beer and wine caffeine: Yes Type: coffee Number of servings: 3 ROS ROS ED Constitutional Constitutional ED: Denies chills or fever(s) Eyes Eyes: Denies change in vision or diplopia ENT ENT ED: Reports as per HPI and lip swelling; Denies rhinorrhea, sore throat, throat swelling or tongue swelling Cardiovascular Cardiovascular: Denies chest pain or palpitations Respiratory/Chest Respiratory/Chest: Denies cough or dyspnea Gastrointestinal Gastrointestinal: Denies abdominal pain, diarrhea, nausea or vomiting Genitourinary Genitourinary ED: Denies dysuria or hematuria Musculoskeletal Musculoskeletal: Denies back pain or neck pain Integumentary Denies abscess or rash Neurologic Neurologic: Denies headache(s), paresthesias or weakness Psychiatric Psychiatric: Denies anxiety or suicidal thoughts Hematologic/Lymphatic Hematologic/Lymphatic: Reports easy bleeding and easy bruising EXAM Physical Exam Const Vital Signs: 09/18/21 10:10 Temperature 97.9 F Temperature Source Temporal Pulse Rate 69 Respiratory Rate 18 Blood Pressure 133/77 H Blood Pressure Mean 95 Pulse Ox 99 Oxygen Delivery Method Room Air Positive well nourished and well developed General Appearance ED: well developed and NAD HEENT Reports moist mucous membranes HEENT Narrative: The right side of the lower lip is edematous and nontender. There are no other lesions to suggest an obvious cause. Normal dentition. No trismus. Normal tongue no elevation, no sublingual edema, no posterior oropharyngeal abnormality, no stridor. normocephalic and atraumatic Eyes PERRL and EOMs intact bilaterally Neck full ROM and supple Chest Wall inspection of chest normal and palpation of chest normal Resp normal respiratory effort and clear to auscultation bilaterally Effort and Inspection: able to speak in complete sentences Cardio regular rate, regular rhythm and no murmurs GI non-tender and non-distended Auscultation: normoactive bowel sounds Palpation: soft Back/Spine no CVA tenderness General Back: other FROM Extremity normal to inspection General Extremety ED: Negative for edema, pulses abnormal or tenderness General Extremity: Negative for edema or pulses abnormal Neuro oriented x3, CN's II-XII intact bilaterally and no sensory deficits noted Neuro Narrative: No facial droop. Normal ambulation. Negative Romberg. Normal neurologic exam. Sensorium / Orientation: awake and alert Motor Exam: strength 5/5 throughout Psych mental status grossly normal Skin no rashes or lesions noted and no wounds MDM MDM MDM Narrative Medical decision making narrative: With no obvious etiology, and no evidence of an allergic reaction to clopidogrel or anything else, my recommendation here would be to discontinue his PORFIRIO inhibitor as that could be the cause until proven otherwise. The is concerned that it looked like his lip was droopy earlier but she showed me a picture and it was much more swollen and it was unilateral on the right lower lip only, which appeared to be simulating a facial droop which the patient does not have. I do not think the patient is having a stroke here and I reassured them. I monitored him here for an hour or 2, he had no worsening and actually thought it was further improved, his vital signs remained stable and normal throughout his stay, so he is stable for discharge home to discontinue his ramipril. He has an appointment with a disciplinary hearing officer in 2 days, at which point he can be reevaluated for a replacement medication if needed, but right now his blood pressure is 133/77 and he already took his pill for today so we really will only be without ramipril for 1.5 days at that point. Discharge Plan Triage Chief Complaint: General Illness ED Provider: Roc Bee Dx/Rx/DC Orders Clinical Impression: Angioedema due to angiotensin converting enzyme inhibitor (PORFIRIO-I) Instructions: ED Angioedema Prescriptions: Continued aspirin [Adult Low Dose Aspirin] 81 mg tablet,delayed release (DR/EC) 81 mg PO QDAY Qty: 90 3RF furosemide [Lasix] 40 mg tablet 40 mg PO DAILY Qty: 90 3RF cholecalciferol (vitamin D3) 1,000 UNIT tablet 1,000 unit PO DAILY multivitamin with folic acid 1 TABLET tablet 1 tab PO DAILY latanoprost 1 DROP bottle 1 drp EACH EYE QHS omega-3 fatty acids-fish oil 1 EACH capsule,delayed release(DR/EC) 1 ea PO DAILY vitamin B complex 1 EACH tablet 1 tab PO DAILY cinnamon bark 500 MG capsule 500 mg PO DAILY coenzyme [id number] E 1 EACH capsule 1 cap PO DAILY magnesium oxide 500 MG capsule 500 mg PO DAILY epinephrine 0.3 MG syringe 0.3 mg IM X1 clopidogrel 75 mg Tablet 75 mg PO DAILY nitroglycerin [Nitrostat] 0.4 mg tablet, sublingual 0.4 mg SUBLINGUAL Q5M PRN (Reason: chest pain) Qty: 25 3RF metoprolol tartrate 25 mg tablet 12.5 mg PO BID Qty: 90 3RF rosuvastatin 5 mg tablet 5 mg PO QHS Qty: 90 3RF levothyroxine 100 mcg tablet 100 mcg PO DAILY Qty: 90 3RF Discontinued ramipril 10 mg capsule 10 mg PO BID Qty: 180 3RF Primary Care Provider: Hilton Jay Referrals: Dax Rodriguez MD [Med Staff - Active Staff] - Keep Estefani appointment Hilton Jay DO [Primary Care Provider] - Disposition Disposition: Home, Self Care What to do if you have Problems For any increased pain, shortness of breath, bleeding, nausea or vomiting, chest pain, or any unexpected problems, contact your Primary Care Provider. Call [facility] ([phone]) or report to the closest Emergency Room. Call 911 if necessary. 09/18/21 1158 <Electronically signed by Roc Bee MD> Cosigner Signature (if applicable): CC: Dax Rodriguez MD; Dr. Hilton Jay DO Signed Hilton Jay DO Work Phone: Start: 09-14-2021 History of placement of stent for coronary artery disease History of coronary artery stent placement Dr. Hilton Jay Work Phone: Comment on above: PCI of the ostial left main into LCx wit h a 4.0 x 15 mm Xience LORENZA 09/14/2021 Start: 08-08-2021 Echo transthorc r-t 2d w/wo m-mode rec f-up/lmtd Amber Guillermo APRN.[facility] DIRECTOR Work Phone: Start: 08-08-2021 Ct heart contrast eval cardiac structure&morph Amber Guillermo APRN.[facility] DIRECT[facility] Work Phone: Start: 08-08-2021 History of coronary artery bypass grafting S/P CABG x 3 Mel Loob MD Work Phone: Start: 08-08-2021 Creatinine [Mass/volume] in Serum or Plasma [facility] Provider Start: 08-08-2021 Radiologic exam chest 2 views Amber Guillermo APRN.CNP Work Phone: Start: 04-30-2021 End: 04-30-2021 Cardiac Cath Diagnostic Comments: See Note; NOTES: [facility] Imaging Services [address] [place] [address] Cardiac Cath Diagnostic MR#: [id number] Acct: [id number] Name: СЕРГЕЙ ALMEIDA Rep #: [id number] : 1945 76 From: Dax Rodriguez MD PCP: Dr. Hilton Jay, DO Status:REG [facility] Patient Name: СЕРГЕЙ ALMEIDA Study Date: 04/30/2021 Performing: Dax Rodriguez MD Ht: 70.07 inches 178 cm : 1945 Wt: 178.57 lbs 81 kg Age: 76 Gender: male BSA: 1.99 PROCEDURE(S) PERFORMED DC03-([id number])LHC/COR/LV/CABG CLINICAL PROFILE AND INDICATIONS Heart Failure: NYHA Class: 2, Newly Diagnosed: Yes, Heart Failure Type: Systolic Stress/Imaging Stress/Image Study Performed: No CAD Presentations: Other: SOB CONCLUSIONS Coronary artery disease with patent SWANSON to the LAD and saphenous vein graft to the diagonal vessel. Ostial left main coronary stenosis subtending the circumflex artery distribution Moderate mitral valve prolapse with moderate mitral regurgitation and preserved ejection fraction with normal left ventricular end-diastolic pressure RECOMMENDATIONS Consider mitral valve clips to the mitral valve and possible ostial PCI of the left main Will refer to a tertiary care center. DESCRIPTION OF PROCEDURE The patient arrived to the procedure lab. The risks and benefits of the procedure as well as a full description of our services here and current unavailability of surgical backup were fully explained to the patient and/or their significant other prior to the catheterization. The Timeout was completed, verifying the correct patient and procedure. The patient's procedural site was prepped and draped in the usual fashion. Local anesthetic was given subcutaneously to right groin region with Lidocaine 2%. Using a modified Seldinger technique, arterial access was obtained via the right femoral artery, a 5Fr sheath was inserted. Left Coronary Artery selective angiography was performed in multiple views using a 5 Fr. JL4 catheter. Saphenous Vein graft to the DIAG 1 selective angiography was performed in multiple views using a 5 Fr. 3DRC (Everett) catheter. Right Coronary Artery selective angiography was then performed in multiple views using a 5 Fr. 3DRC (Everett) catheter. Left internal mammary artery graft to the LAD selective angiography was performed in multiple views using a 5 Fr. 3DRC (Everett) catheter. Left Ventriculography was performed in RUIZ projection using a 5 Fr. Pigtail catheter. LV to AO pullback pressures were then recorded.The arterial sheath was pulled and a Mynx closure device was deployed for hemostasis CORONARY ANGIOGRAPHY DOMINANCE: Left Dominant LEFT HEART ASSESSMENT Left Ventricular Ejection Fraction: by LV Gram 65 % Normal LV wall motion Normal Left Ventricular systolic function LEFT MAIN: Ostial 70% stenosis LEFT ANTERIOR DESCENDING ARTERY: PROX LAD: is occluded CIRCUMFLEX ARTERY: Mild disease with occlusion of the first obtuse marginal vessel. RIGHT CORONARY ARTERY: Nondominant vessel with diffuse disease GRAFTS: SWANSON graft to the Mid LAD is patent Saphenous Vein graft to the 1st Diagonal has a mid lesion of 40 % Saphenous Vein graft to the 1st Diagonal is patent Saphenous Vein graft to the 1st OM is totally occluded VALVE FINDINGS: Mitral Valve Prolapse Moderate Mitral Valve Insufficiency - Grade 3 COMPLICATIONS No Complications PROCEDURE MEDICATIONS Fentanyl 50 mcg IV Versed 1 mg IV Versed 1 mg IV Oxygen: 2 L/min via nasal cannula SUMMARY OF HEMODYNAMIC DATA Time AIR REST ECG 08:19:30 AO 152/76 (106) SA 09:33:26 LV 148/14, 23 09:42:47 LV 135/12, 21 09:42:56 LV 129/13, 22 09:44:31 LVp 135/11, 22 09:44:41 AOp 137/68 (97) 09:44:46 AO 138/68 (96) 09:44:47 Signed By Dax Rodriguez MD On 04/30/2021 10:06:12 AM Dax Rodriguez MD 04/30/21 1006 Date Dax Meyerigner Signature: Date (if indicated) CC: Dax Rodriguez MD; Dr. Dax Rodriguez MD; Dr. Hilton Jay DO Date Dictated: 04/30/21926 Date Transcribed: 04/30/21947 [employer] Teacher: [place] Signed Reina Ames MD Work Phone: Start: 04-30-2021 End: 04-30-2021 12 Lead EKG Comments: See Note; NOTES: [facility] Cardiovascular Services [address] [place] [id number] Lead EKG 04/30/21 0836 MR#: [id number] Acct: [id number] Name: СЕРГЕЙ ALMEIDA Rep #: [id number] : 1945 76 From: Dax Rodriguez MD Attending Dr: Dr. Dax Rodriguez MD Status: DEP S DC Ordering Dr: Dax Rodriguez MD Date: 04/30/21 Location: [facility] Sex: M C Admitted: Test Reason : PRE OP Blood Pressure : / mmHG Vent. Rate : 056 BPM Atrial Rate : 056 BPM P-R Int : 148 ms QRS Dur : 126 ms QT Int : 448 ms P-R-T Axes : 029 -46 -02 degrees QTc Int : 432 ms Sinus bradycardia Left axis deviation Left ventricular hypertrophy with QRS widening Abnormal ECG When compared with ECG of 19-JAN-2019 13:35, No significant change was found Confirmed by DAX RODRIGUEZ MD ([id number]), material expeditor RAPHAEL LEVINE ([id number]) on 04/30/2021 2:24:52 PM Referred By: Dax Rodriguez Confirmed By:DAX RODRIGUEZ MD 04/30/21 1424 Date Dax Rodriguez MD CC: Dax Rodriguez MD; Dr. Dax Rodriguez MD; Dr. Hilton Jay, DO Signed Hilton Jay DO Work Phone: Start: 04-27-2021 End: 04-27-2021 History and Physical Exam Comments: See Note; NOTES: [facility] Medical Records Department [address] [place] [address] History Physical Exam 04/27/21 1018 MR#: [id number] Acct: [id number] Name: СЕРГЕЙ ALMEIDA Rep #: [id number] : 1945 76 From: Ryan Meza NP ENVIRONMENTAL CONSULTANT-C PCP: Dr. Hilton Jay DO Status:PRE [facility] Location: [facility] History and Physical Date of Admission: 04/30/21 Details: This is a 76-year-old gentleman that presents here today for a heart catheterization. He has a history of coronary artery disease status post coronary bypass surgery with a left internal mammary artery to left anterior descending artery saphenous vein graft to diagonal branch and obtuse marginal branch. He also has a history of mitral valve prolapse as well as mitral regurgitation. In February of 2016 he underwent a heart catheterization which demonstrated patency of his left internal mammary artery to the left anterior descending artery as well as the saphenous vein graft to diagonal branch. The saphenous vein graft to the obtuse marginal branch was occluded. Medical management was commended. He says that he has been somewhat short of breath. We did perform a stress test in February 2020 where he exercised to 11.4 metabolic equivalents with mild mid inferior ischemia. His echocardiogram from last year also demonstrated an ejection fraction of 60%, stage III diastolic dysfunction, moderate left atrial enlargement, mild mitral valve prolapse with 1-2+ anteriorly directed mitral regurgitation. This was apparently unchanged. From a cardiac standpoint patient is doing well. He does not have any chest discomfort/heaviness/tightne ss. His exercise tolerance is stable for his age. His major issue at this particular time is that he has been short of breath with exertion. He has not had any chest pain or paroxysmal nocturnal dyspnea or pedal edema no near syncope or syncope. He underwent a transesophageal echocardiogram in 03/28/2021 that showed ejection fraction of 60% and moderate anteriorly directed mitral valve insufficiency with posterior leaflet mitral valve prolapse. To assess further, he he will undergo a heart catheterization. Intake Vital Signs: See EMR Intake Visit Reasons: [facility] Allergies bee venom protein (honey bee) Allergy (Unknown, Verified 03/15/21 07:25) hives/anaphylaxis Medications See EMR Ejection fraction %: 60 to 64 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 Elevated PSA Essential hypertension Hyperlipidemia Hypothyroidism Nonrheumatic mitral (valve) insufficiency Nonrheumatic mitral (valve) prolapse Old inferolateral myocardial infarction Prostate cancer Urgency-frequency syndrome Surgical History H/O coronary artery bypass surgery (11/1994) H/O prostatectomy History of left heart catheterization Family History Father , of Burleson's disease Burleson's disease Mother , Age 60 of [place] CAD (coronary artery disease) Myocardial infarction Brother CAD (coronary artery disease) history of cabg Brother CAD (coronary artery disease) Stented coronary artery Diabetes Sister CAD (coronary artery disease) Myocardial infarction Hypertension Social History Smoking Status: Former smoker alcohol intake: current alcohol intake frequency: other Alcohol type: beer and wine caffeine: Yes Type: coffee Number of servings: 3 ROS Const Const: Negative for fatigue, weakness, headache(s), frequent falls, difficulty sleeping or excessive sweating Eyes Eyes: Negative for loss of peripheral vision, transient loss of vision, blurry vision, double vision or tunnel vision ENT ENT: Negative for headache(s), dizziness, Nosebleed/epistaxis or balance problems Cardio Chest Pain: No Palpitations: No Edema: None Muscle aches with walking: None Resp Respiratory: Positive for SOB with activity (when walking his dog or climbing stairs); Negative for SOB at rest, SOB orthopnea SOB lying down, Cough or paroxysmal nocturnal dyspnea GI GI: Negative nausea, vomiting, heartburn or black,tarry stools : Negative for hematuria Musc Musc: Negative for muscle aches/ myalgia, muscle weakness, joint pain or balance problems Skin Skin: Negative non-healing lesions, rash or unusual bruising Neuro Neuro: Positive for lightheadedness (positional); Negative for dizziness, near syncope, syncope, orthostatic symptoms, frequent falls, headache(s), weakness, blurry vision, double vision or lack of coordination Santino Hematologic/Lymphatic: Negative for easy bleeding or easy bruising Endo Endo: Negative for fatigue, excessive sweating or increased thirst/drinking Psych Psych: Negative for anxiety or depression Allergy Allergy/Immunology: Negative for hives and Negative for rash Cardiology Exam Const Appearance: cooperative, healthy appearing, no acute distress, well developed and well groomed Nutritional Appearance: average body habitus and well nourished Orientation: alert, awake and oriented x3 Head Head: normal to inspection, normocephalic and atraumatic Ears: hearing grossly normal bilaterally and external ears normal Nose: external nose normal, nares normal, nasal mucous membranes and turbinates normal, septum normal and no nasal discharge Face and Sinus: face symmetric Mouth: oral mucosae normal, tongue normal, oropharynx normal and moist mucous membranes Teeth and gingiva: dentition normal Throat: posterior oropharynx normal, tonsils normal and uvula midline Eyes General: appearance normal, both eyes and all related structures Eyelids: eyelids normal Conjunctivae: conjunctivae normal Pupils: PERRL, normal by confrontation and accommodation normal EOM: EOM intact bilaterally Neck Neck: normal visual inspection, trachea midline and no JVD JVD: +5 Carotids: normal carotid upstroke and bounding pulses Chest Chest inspection: normal inspection of the chest, symmetric chest movement and normal respiratory effort Auscultation: Bilateral: Clear to Auscultation Cardio Palpation: normal PMI Rate: regular rate Rhythm: regular rhythm Heart sounds: S1 normal, S2 normal, murmur and normal, physiologic split S2; Negative rub or gallop Murmur: Grade 3/6, harsh, holosystolic and ELIZABETH loudest at apex -> axilla GI GI: normal to inspection, soft, no hepatosplenomegaly and bowel sounds present Neuro General: patient alert, patient awake, patient oriented x3, gait normal, moves all extremities and no focal sensory deficit Skin Skin: no rashes or lesions noted Extremities Pulses: Normal: Right Femoral Pulse, Left Femoral Pulse, Right Dorsalis Pedis Pulse, Left Dorsalis Pedis Pulse, Right Posterior Tibial Pulse, Left Posterior Tibial Pulse, Right Radial Pulse and Left Radial Pulse Lower Extremity Edema: None: Bilateral Musculoskel Musculoskeletal: No joint tenderness Psych Psychological: normal affect Supplemental Info Supplemental Information Stress Test 03/22/2020 Conclusion: Exercise myocardial perfusion stress test with area of previous inferior lateral infarct and mild mid inferior ischemia. Excellent functional aerobic capacity. No clinical angina noted. This is a low risk scan. Echocardiogram 03/22/2020 Interpretation Summary Normal LV size. Left ventricular systolic function is normal. The estimated ejection fraction is 60 %. Stage 3 diastolic dysfunction. The left atrium is moderately enlarged. Mild (1+) aortic valve insufficiency. Mild-Moderate (1-2+) anteriorly directed mitral valve insufficiency. Mild mitral valve prolapse, posterior leaflet Compared to previous study, the left ventricular systolic function is the same.. Compared to prior study, there is no significant change. Transesophageal echocardiogram from 03/28/2021: Interpretation Summary Normal LV size. Left ventricular systolic function is normal. The estimated ejection fraction is 60 %. Posterior leaflet mitral valve prolapse. Moderate (2+) anteriorly directed mitral valve insufficiency. Bubble contrast study negative for right to left interatrial shunt. Laboratory Tests 12/06/20 10:35 Triglycerides 115 Cholesterol 140 LDL Cholesterol 77 HDL Cholesterol 40 Labs: LDL Cholesterol 77 mg/dL (0-130) HDL Cholesterol 40 mg/dL (40-) Triglycerides 115 mg/dL (-199) VLDL Cholesterol 23 mg/dL (5-40) Diagnostics: Echocardiogram Stress Test NM Stress Test Venous Doppler Study Pulmonary: No Data to Display Assessment and Plan Assessment and Plan (1) Dyspnea on exertion: Status: Acute Plan - Dr. Dax Rodriguez MD: His BNP on 03/15/2019 was noted to be 67.5. His most recent transesophageal echocardiogram showed a preserved ejection fraction. He will proceed with heart catheterization to assess symptoms further. Based on results, further recommendation will be made. (2) Nonrheumatic mitral (valve) prolapse: Status: Chronic Plan - Dr. Dax Rodriguez MD: He does have a history of mitral valve prolapse. His transesophageal echocardiogram from March 2021 showed moderate anteriorly directed mitral valve insufficiency with posterior leaflet mitral valve prolapse. (3) Essential hypertension: Status: Chronic Plan - Dr. Dax Rodriguez MD: He does have a history of hypertension which is well controlled on the current medications and no other major changes will be made. (4) H/O coronary artery bypass surgery: Status: Resolved Comment: CABG x 3 SWANSON-LAD, SVG-D1, SVG-OM2 11/1994 Plan - Dr. Dax Rodriguez MD: He is status post coronary bypass surgery. His bypass anatomy was evaluated in 2017 and he was noted to have the saphenous vein graft to obtuse marginal branch occluded. This corroborates with the mild mid inferior ischemia. No changes will be made other than changing his aspirin to 81 mg a day. This will be assessed further with heart catheterization. (5) Hyperlipidemia: Status: Chronic Qualifiers: Hyperlipidemia type: pure hypercholesterolemia Qualified Code(s): E78.00 - Pure hypercholesterolemia, unspecified; E78.0 - Pure hypercholesterolemia Plan - Dr. Dax Rodriguez MD: He does have a history of hyperlipidemia. His most recent lipid profile demonstrating a total cholesterol 140, LDL of 77, HDL of 40. He will remain on his current medical therapy with no changes. 04/27/21 1022 <Electronically signed by Ryan RICKS> Cosigner Signature (if applicable): 04/27/21 1033 <Electronically signed by Dax Rodriguez MD> CC: ENVIRONMENTAL CONSULTANT-C Ryan Meza; Dr. Dax Rodriguez MD; Dr. Hilton Jay DO Signed Hilton Jay DO Work Phone: Start: 04-10-2021 Plain chest X-ray Dr. Hilton Jay Work Phone: Start: 04-10-2021 End: 04-10-2021 Chest PA and Lateral Comments: See Note; NOTES: [facility] Imaging Services [address] [place] [address] Chest PA and Lateral MR#: [id number] Acct: [id number] Name: СЕРГЕЙ ALMEIDA Rep #: [id number] : 1945 M 75 From: Chano King MD PCP: Dr. Hilton Jay DO Status: PRE SDC Study: Chest PA and Lateral Date of Exam: 04/10/21 Exam# [id number] Ordering Dr: Dax Rodriguez MD STUDY: X-RAY CHEST REASON FOR EXAM: Male, 75 years old. Worsening shortness of breath TECHNIQUE: PA and lateral views of the chest. COMPARISON: 10/07/2018 FINDINGS: Stable retrocardiac hiatal hernia The lungs are clear and expanded. There is no demonstrated pleural abnormality. Sternal cerclage wires and vascular clips are present from a prior sternotomy and coronary artery bypass graft procedure (CABG). Normal mediastinum and leonel. Normal visualized pulmonary arteries. Normal visualized aortic arch and descending thoracic aorta. Normal visualized thoracic spine. Normal visualized ribs, clavicles, and shoulders. There is no demonstrated abnormality of the visualized soft tissue structures of the upper abdomen. RAD/Chest PA and Lateral IMPRESSION: No acute pulmonary process Electronically Signed: Wellington King MD at 17:38 EST , CC: Dr. Dax Rodriguez MD; Dr. Hilton Jay DO [employer] Computer [employer] Teacher: Signed Hilton Jay DO Work Phone: Start: 03-28-2021 SARS-CoV-2 Antigen (Rapid) Dr. Hilton Jay Work Phone: Start: 03-28-2021 End: 03-28-2021 Echo Transesophageal (DARCY) Comments: See Note; NOTES: [facility] Cardiovascular Services [address] [place] [address] Echo Transesophageal (DARCY) 03/28/21 1302 MR#: [id number] Acct: [id number] Name: СЕРГЕЙ ALMEIDA Rep #: [id number] : 1945 75 From: Dax Rodriguez MD Attending Dr: Dr. Dax Rodriguez MD Status: REG C GURWINDER Ordering Dr: Dax Rodriguez MD Date: 03/28/21 Location: [facility] Sex: M C Admitted: Reason For Study: DYSPNEA Medication DARCY probe 6VT-D (SN [id number]) passed without difficulty. No complications were noted. Cetacaine Topical [place] given X3 orally. Versed 2 mg given slow IVP. Fentanyl 50 mcg given slow IVP. Performed a rapid injection of agitated mix of 9 cc saline and 1cc air to assess for atrial septal defect. Left Ventricle Normal LV size. Left ventricular systolic function is normal. The estimated ejection fraction is 60 %. No regional wall motion abnormalities noted. Right Ventricle Normal RV size. Normal systolic function. Atria Bubble contrast study negative for right to left interatrial shunt. Normal left atrium. No thrombus is detected in the left atrial appendage. Normal right atrium. Mitral Valve Posterior leaflet mitral valve prolapse. Moderate (2+) anteriorly directed mitral valve insufficiency. Tricuspid Valve Normal tricuspid valve. Aortic Valve Trisinus/trileaflet aortic valve. Mild (1+) aortic valve insufficiency. Pulmonic Valve Normal pulmonic valve. Vessels Normal aortic root. Mild atherosclerosis of the aortic arch. The pulmonary artery is normal size. Pericardium No pericardial effusion. ECHO/Echo Transesophageal (DARCY) Interpretation Summary Normal LV size. Left ventricular systolic function is normal. The estimated ejection fraction is 60 %. Posterior leaflet mitral valve prolapse. Moderate (2+) anteriorly directed mitral valve insufficiency. Bubble contrast study negative for right to left interatrial shunt. _ Ordering Physician: Dax Rodriguez Referring Physician: HILTON JAY Performed By: Jacqueline Siddiqui, RDCS, RVT 03/28/211845 Date Dax Rodriguez MD CC: Dr. Dax Rodriguez MD; Dr. Hilton Jay DO Date Dictated: 03/28/21 1302 Date Transcribed: 03/28/211845 [employer] Computer [employer] Teacher: Signed Hilton Jay DO Work Phone: Start: 03-15-2021 End: 03-15-2021 Cardiology Visit Report Comments: See Note; NOTES: [facility] [place] [address] OFFICE VISIT Date of Service: 03/15/21 MR#: [id number] Acct: [id number] Name: СЕРГЕЙ ALMEIDA Rep #: [id number] : 1945 Provider: Dr. Dax Rodriguez MD Age/Sex: 75/M Location: [facility] Status: Signed HPI HPI History of Present Illness Details: This is a 75-year-old gentleman that presents here today for a follow-up. He has a history of coronary artery disease status post coronary bypass surgery with a left internal mammary artery to left anterior descending artery saphenous vein graft to diagonal branch and obtuse marginal branch. He also has a history of mitral valve prolapse as well as mitral regurgitation. In February of 2016 he underwent a heart catheterization which demonstrated patency of his left internal mammary artery to the left anterior descending artery as well as the saphenous vein graft to diagonal branch. The saphenous vein graft to the obtuse marginal branch was occluded. Medical management was commended. He says that he has been somewhat short of breath. We did perform a stress test in February of last year where he exercised to 11.4 metabolic equivalents with mild mid inferior ischemia. His echocardiogram from last year also demonstrated an ejection fraction of 60%, stage III diastolic dysfunction, moderate left atrial enlargement, mild mitral valve prolapse with 1-2+ anteriorly directed mitral regurgitation. This was apparently unchanged. From a cardiac standpoint patient is doing well. He does not have any chest discomfort/heaviness/tightne ss. His exercise tolerance is stable for his age. His major issue at this particular time is that he has been short of breath with exertion. He has not had any chest pain or paroxysmal nocturnal dyspnea or pedal edema no near syncope or syncope. Intake Vital Signs 03/15/21 07:23 Height 5 ft 10 in Weight: 178 lb BMI 25.5 BP 146/77 H Respiration 16 Pulse 54 L Pulse Oximetry (%) 100 Intake Visit Reasons: 1 Y FU Allergies bee venom protein (honey bee) Allergy (Unknown, Verified 03/15/21 07:25) hives/anaphylaxis Medications cholecalciferol (vitamin D3) 1,000 unit PO DAILY 01/14/14 [History Confirmed 03/15/21] multivitamin with folic acid 1 tab PO DAILY 01/14/14 [History Confirmed 03/15/21] latanoprost 1 drp EACH EYE QHS 01/03/17 [History Confirmed 03/15/21] omega-3 fatty acids-fish oil 1 ea PO DAILY 01/03/17 [History Confirmed 03/15/21] cinnamon bark 500 mg PO DAILY 10/07/18 [History Confirmed 03/15/21] coenzyme [id number] E 1 cap PO DAILY 10/07/18 [History Confirmed 03/15/21] magnesium oxide 500 mg PO DAILY 10/07/18 [History Confirmed 03/15/21] vitamin B complex 1 tab PO DAILY 10/07/18 [History Confirmed 03/14/20] epinephrine 0.3 mg IM X1 01/19/19 [History Confirmed 03/14/20] nitroglycerin 0.4 mg sublingual tablet 0.4 mg SUBLINGUAL Q5M PRN #25 tab 12/07/19 [Rx Confirmed 03/15/21] metoprolol tartrate 25 mg tablet 12.5 mg PO BID #90 tab 02/07/20 [Rx Confirmed 03/15/21] ramipril 10 mg capsule 10 mg PO BID #180 cap 02/07/20 [Rx Confirmed 03/15/21] rosuvastatin 5 mg tablet 5 mg PO QHS #90 tab 08/08/20 [Rx Confirmed 03/15/21] levothyroxine 100 mcg tablet 100 mcg PO DAILY #90 tab 09/07/20 [Rx Confirmed 03/15/21] aspirin 81 mg tablet,delayed release 81 mg PO QDAY #90 tab 03/15/21 [Rx Confirmed 03/15/21] furosemide 40 mg tablet 40 mg PO DAILY #90 tab 03/15/21 [Rx Confirmed 03/15/21] Ejection fraction %: 60 to 64 PFSH Medical History 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 Elevated PSA Essential hypertension Hyperlipidemia Hypothyroidism Nonrheumatic mitral (valve) insufficiency Nonrheumatic mitral (valve) prolapse Old inferolateral myocardial infarction Prostate cancer Urgency-frequency syndrome Surgical History H/O coronary artery bypass surgery (11/1994) H/O prostatectomy History of left heart catheterization Family History Father , of Burleson's disease Burleson's disease Mother , Age 60 of [place] CAD (coronary artery disease) Myocardial infarction Brother CAD (coronary artery disease) history of cabg Brother CAD (coronary artery disease) Stented coronary artery Diabetes Sister CAD (coronary artery disease) Myocardial infarction Hypertension Social History Smoking Status: Former smoker alcohol intake: current alcohol intake frequency: other Alcohol type: beer and wine caffeine: Yes Type: coffee Number of servings: 3 ROS Const Const: Negative for fatigue, weakness, headache(s), frequent falls, difficulty sleeping or excessive sweating Eyes Eyes: Negative for loss of peripheral vision, transient loss of vision, blurry vision, double vision or tunnel vision ENT ENT: Negative for headache(s), dizziness, Nosebleed/epistaxis or balance problems Cardio Chest Pain: No Palpitations: No Edema: None Muscle aches with walking: None Resp Respiratory: Positive for SOB with activity (when walking his dog or climbing stairs); Negative for SOB at rest, SOB orthopnea SOB lying down, Cough or paroxysmal nocturnal dyspnea GI GI: Negative nausea, vomiting, heartburn or black,tarry stools : Negative for hematuria Musc Musc: Negative for muscle aches/ myalgia, muscle weakness, joint pain or balance problems Skin Skin: Negative non-healing lesions, rash or unusual bruising Neuro Neuro: Positive for lightheadedness (positional); Negative for dizziness, near syncope, syncope, orthostatic symptoms, frequent falls, headache(s), weakness, blurry vision, double vision or lack of coordination Santino Hematologic/Lymphatic: Negative for easy bleeding or easy bruising Endo Endo: Negative for fatigue, excessive sweating or increased thirst/drinking Psych Psych: Negative for anxiety or depression Allergy Allergy/Immunology: Negative for hives and Negative for rash Cardiology Exam Const Appearance: cooperative, healthy appearing, no acute distress, well developed and well groomed Nutritional Appearance: average body habitus and well nourished Orientation: alert, awake and oriented x3 Head Head: normal to inspection, normocephalic and atraumatic Ears: hearing grossly normal bilaterally and external ears normal Nose: external nose normal, nares normal, nasal mucous membranes and turbinates normal, septum normal and no nasal discharge Face and Sinus: face symmetric Mouth: oral mucosae normal, tongue normal, oropharynx normal and moist mucous membranes Teeth and gingiva: dentition normal Throat: posterior oropharynx normal, tonsils normal and uvula midline Eyes General: appearance normal, both eyes and all related structures Eyelids: eyelids normal Conjunctivae: conjunctivae normal Pupils: PERRL, normal by confrontation and accommodation normal EOM: EOM intact bilaterally Neck Neck: normal visual inspection, trachea midline and no JVD JVD: +5 Carotids: normal carotid upstroke and bounding pulses Chest Chest inspection: normal inspection of the chest, symmetric chest movement and normal respiratory effort Auscultation: Bilateral: Clear to Auscultation Cardio Palpation: normal PMI Rate: regular rate Rhythm: regular rhythm Heart sounds: S1 normal, S2 normal, murmur and normal, physiologic split S2; Negative rub or gallop Murmur: Grade 3/6, harsh, holosystolic and ELIZABETH loudest at apex -> axilla GI GI: normal to inspection, soft, no hepatosplenomegaly and bowel sounds present Neuro General: patient alert, patient awake, patient oriented x3, gait normal, moves all extremities and no focal sensory deficit Skin Skin: no rashes or lesions noted Extremities Pulses: Normal: Right Femoral Pulse, Left Femoral Pulse, Right Dorsalis Pedis Pulse, Left Dorsalis Pedis Pulse, Right Posterior Tibial Pulse, Left Posterior Tibial Pulse, Right Radial Pulse and Left Radial Pulse Lower Extremity Edema: None: Bilateral Musculoskel Musculoskeletal: No joint tenderness Psych Psychological: normal affect Supplemental Info Supplemental Information Stress Test 03/22/2020 Conclusion: Exercise myocardial perfusion stress test with area of previous inferior lateral infarct and mild mid inferior ischemia. Excellent functional aerobic capacity. No clinical angina noted. This is a low risk scan. Echocardiogram 03/22/2020 Interpretation Summary Normal LV size. Left ventricular systolic function is normal. The estimated ejection fraction is 60 %. Stage 3 diastolic dysfunction. The left atrium is moderately enlarged. Mild (1+) aortic valve insufficiency. Mild-Moderate (1-2+) anteriorly directed mitral valve insufficiency. Mild mitral valve prolapse, posterior leaflet Compared to previous study, the left ventricular systolic function is the same.. Compared to prior study, there is no significant change. Laboratory Tests 12/06/20 10:35 Triglycerides 115 Cholesterol 140 LDL Cholesterol 77 HDL Cholesterol 40 Labs: LDL Cholesterol 77 mg/dL (0-130) HDL Cholesterol 40 mg/dL (40-) Triglycerides 115 mg/dL (-199) VLDL Cholesterol 23 mg/dL (5-40) Diagnostics: Echocardiogram Stress Test NM Stress Test Venous Doppler Study Pulmonary: No Data to Display Assessment and Plan Assessment and Plan (1) Dyspnea on exertion: Status: Acute Orders: Orders: Echo Transesophageal (DARCY) Today BNP,B-Type NATRIURETIC PEPTIDE Today Plan - Dr. Dax Rodriguez MD: He does have some dyspnea on exertion and I suspect the above may be on the basis of his mitral regurgitation. I would recommend that we obtain a BT ENVIRONMENTAL CONSULTANT and then also consider a transesophageal echocardiogram to further assess the mitral valve. Depending on these findings further recommendations will be made. In the meantime I would like to discontinue his hydrochlorothiazide and put him on Lasix 40 mg a day. (2) Nonrheumatic mitral (valve) prolapse: Status: Chronic Plan - Dr. Dax Rodriguez MD: He does have a history of mitral valve prolapse. We will perform a DARCY and see whether his mitral valve has worsened and whether he is a candidate for a mitral valve clip. (3) Essential hypertension: Status: Chronic Plan - Dr. Dax Rodriguez MD: He does have a history of hypertension which is well controlled on the current medications and no other major changes will be made. (4) H/O coronary artery bypass surgery: Status: Resolved Comment: CABG x 3 SWANSON-LAD, SVG-D1, SVG-OM2 11/1994 Plan - Dr. Dax Rodriguez MD: He is status post coronary bypass surgery. His bypass anatomy was evaluated in 2017 and he was noted to have the saphenous vein graft to obtuse marginal branch occluded. This corroborates with the mild mid inferior ischemia. No changes will be made other than changing his aspirin to 81 mg a day (5) Hyperlipidemia: Status: Chronic Qualifiers: Hyperlipidemia type: pure hypercholesterolemia Qualified Code(s): E78.00 - Pure hypercholesterolemia, unspecified; E78.0 - Pure hypercholesterolemia Plan - Dr. Dax Rodriguez MD: He does have a history of hyperlipidemia. His most recent lipid profile demonstrating a total cholesterol 140, LDL of 77, HDL of 40. He will remain on his current medical therapy with no changes. Thank you for allowing me to participate in the care of your patient. Please don't hesitate to call if any issues arise. Plan Details Other Medications: New: aspirin (Adult Low Dose Aspirin) 81 mg PO QDAY 90 tabs 3RF furosemide (Lasix) 40 mg PO DAILY 90 tabs 3RF Discontinued: aspirin Discontinued Reason: Order Changed 325 mg PO DAILY hydrochlorothiazide Discontinued Reason: Order Changed 12.5 mg (1/2 x 25 mg) PO DAILY 45 tabs 4RF BP Additional Comments: Portions of this documentation were copied and pasted from previous office visit notes to provide a cohesive continuity of the history. The note has been reviewed, edited, and updated, as necessary. 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) Coding Level of Care Code Off vis,est,level 4 Diagnoses Dyspnea on exertion R06.00 Nonrheumatic mitral (valve) prolapse I34.1 Essential hypertension I10 H/O coronary artery bypass surgery Z95.1 Hyperlipidemia E78.00; E78.0 Hyperlipidemia type: pure hypercholesterolemia Coding Level of Care Code Off vis,est,level 4 Diagnoses Dyspnea on exertion R06.00 Nonrheumatic mitral (valve) prolapse I34.1 Essential hypertension I10 H/O coronary artery bypass surgery Z95.1 Hyperlipidemia E78.00; E78.0 Hyperlipidemia type: pure hypercholesterolemia 03/15/21 0903 <Electronically signed by Dax Rodriguez MD> Date Dax Rodriguez MD [facility] Signature: Date (if applicable) CC: DO Hilton Myles DO Work Phone: Start: 03-22-2020 End: 03-22-2020 Stress Report Comments: See Note; NOTES: [facility] [address] [place], [place] [address] [place] [address] MR#: [id number] Acct: [id number] Name: СЕРГЕЙ ALMEIDA Rep #: [id number] : 1945 74 From: Dax Rodriguez MD Primary Care: Dr. Hilton Jay, Status: REG CLI Referring Dr: Dax Rodriguez MD Sex: M C Stress Test Report Exercise myocardial perfusion stress test. 74-year-old man with a history of coronary artery bypass surgery with a left internal mammary artery to the left anterior descending artery, saphenous vein graft to diagonal branch into the obtuse marginal branch with an occluded saphenous vein graft to obtuse marginal branch. Medications: Vitamin D omega-3 hydrochlorothiazide, rosuvastatin, metoprolol, aspirin, ramipril. Stress protocol: Resting EKG demonstrates normal sinus rhythm with a rate of 56 bpm left axis deviation is noted incomplete left bundle branch block is noted resting blood pressure is 142/80 mmHg. The patient exercised according to the regular Aftab protocol for a total duration of 9 minutes and 49 seconds completing 49 seconds into stage IV of the Aftab protocol. The maximum heart rate was 134 bpm which was 93% of max impacted heart rate the maximum workload was 11.4 metabolic equivalents. The test was terminated due to the target heart rate being achieved. The peak blood pressure was 192/80 mmHg with a peak blood pressure and rate-pressure product of 21,100. Excellent blood pressure response to exercise was noted. No chest pain was noted. Myocardial perfusion protocol. 11.1 mCi of technetium 99m sestamibi was injected at rest. The patient exercised according to regular Aftab protocol for 9 minutes and 49 seconds. At peak exercise 32.9 mCi of technetium 99m sestamibi was injected stress images were obtained stress and rest images were reconstructed and compared in the short axis vertical long horizontal long axis. Gated images were also obtained Perfusion SPECT analysis: Review of the stress images demonstrate normal uptake of tracer noted in the anterior wall septum and lateral wall. The mid inferior wall has a medium size defect which extends to the inferior lateral wall. On the resting images there is mild improvement in the mid inferior wall suggesting mid inferior ischemia and a previously infarcted inferolateral zone. Gated SPECT analysis: The gated ejection fraction is noted to be 67%. Conclusion: Exercise myocardial perfusion stress test with area of previous inferior lateral infarct and mild mid inferior ischemia. Excellent functional aerobic capacity. No clinical angina noted. This is a low risk scan. 03/22/201740 <Electronically signed by Dax Rodriguez MD> Date Dax Rodriguez MD CC: Dr. Dax Rodriguez MD; Dr. Hilton Jay DO Date Dictated: 03/22/201733 Date Transcribed: 03/22/201733 [employer] Teacher: [place] Signed Hilton Jay Start: 03-22-2020 End: 03-22-2020 Echo Complete Comments: See Note; NOTES: [facility] [address] [place] [address] Echo Complete 03/22/20 0933 MR#: [id number] Acct: [id number] Name: СЕРГЕЙ ALMEIDA Rep #: [id number] : 1945 74 From: Dax Rodriguez MD Attending Dr: Dr. Dax Rodriguez MD Status: BARON PURDY Ordering Dr: Dax Rodriguez MD Date: 03/22/20 Location: [facility] Sex: M C Admitted: Reason For Study: S/P CABG Procedure This was a 2D Doppler, Color Flow transthoracic echocardiogram. Exam performed in department. Left Ventricle Normal LV size. Left ventricular systolic function is normal. The estimated ejection fraction is 60 %. Stage 3 diastolic dysfunction. No regional wall motion abnormalities noted. Right Ventricle Normal RV size. Normal systolic function. Atria The left atrium is moderately enlarged. The right atrium is mildly enlarged. Bubble contrast study negative for right to left interatrial shunt. Mitral Valve Mild mitral valve prolapse. Mild mitral valve prolapse, posterior leaflet. Mild-Moderate (1-2+) anteriorly directed mitral valve insufficiency. Tricuspid Valve Normal tricuspid valve. Mild (1+) tricuspid valve insufficiency. Pulmonary artery systolic pressure is 32 mmHg. Aortic Valve Normal aortic valve. Trisinus/trileaflet aortic valve. Mild (1+) aortic valve insufficiency. Pulmonic Valve Normal pulmonic valve. Mild (1+) pulmonic valve insufficiency. Great Vessels Normal aortic root. The pulmonary artery is normal size. Normal inferior vena cava. Pericardium/Pleural No pericardial effusion. Medication Performed a rapid injection of agitated mix of 9 cc saline and 1cc air to assess for atrial septal defect. MMode/2D Measurements Calculations LVIDd: 5.4 cm IVSd: 1.1 cm Ao root diam: 3.2 cm LVIDs: 3.5 cm LVPWd: 1.0 cm RVDd: 4.3 cm FS: 34.1 % LAV(MOD-bp): 80.6 ml LA A4 area: 26.4 cm2 LA dimension(2D): 4.8 cm LAV(MOD-bp) Indexed: 40.9 ml/m2 LAV(MOD-sp2): 66.9 ml LAV(MOD-sp4): 93.4 ml RA A4 area: 20.3 cm2 Time Measurements MV dec time: 0.18 sec Doppler Measurements Calculations MV E max michael: 124.1 cm/sec Lat Peak E' Michael: 13.6 cm/sec Med Peak E' Michael: 8.6 cm/sec MV A max michael: 66.5 cm/sec E/E' lat: 9.1 E/E' med: 14.3 MV E/A: 1.9 MV V2 max: 124.2 cm/sec Ao V2 max: 156.9 cm/sec AI max michael: 388.6 cm/sec MV max P.2 mmHg Ao max P.9 mmHg AI max P.4 mmHg MV V2 mean: 65.3 cm/sec Ao V2 mean: 104.6 cm/sec AI dec slope: 233.4 cm/sec2 MV mean P.0 mmHg Ao mean P.0 mmHg AI P1/2t: 487.6 msec MV V2 VTI: 36.4 cm Ao V2 VTI: 30.5 cm LV V1 max: 100.1 cm/sec MR max michael: 611.1 cm/sec PA V2 max: 185.2 cm/sec LV V1 max P.0 mmHg MR max P.5 mmHg PA V2 mean: 129.1 cm/sec LV V1 mean P.0 mmHg MR mean michael: 488.0 cm/sec PA V2 VTI: 36.0 cm LV V1 mean: 65.8 cm/sec MR mean P.3 mmHg LV V1 VTI: 22.0 cm MR VTI: 197.1 cm TR max michael: 264.3 cm/sec TR max P.0 mmHg Interpretation Summary Normal LV size. Left ventricular systolic function is normal. The estimated ejection fraction is 60 %. Stage 3 diastolic dysfunction. The left atrium is moderately enlarged. Mild (1+) aortic valve insufficiency. Mild-Moderate (1-2+) anteriorly directed mitral valve insufficiency. Mild mitral valve prolapse, posterior leaflet Compared to previous study, the left ventricular systolic function is the same.. Compared to prior study, there is no significant change. _ Ordering Physician: Dax Rodriguez Referring Physician: Hilton Jay Performed By: Giana Devlin, TOD, RVT 03/22/20 1239 Date Dax Rodriguez MD CC: Dr. Dax Rodriguez MD; Dr. Hilton Jay DO Date Dictated: 03/22/20 0933 Date Transcribed: 03/22/20 1239 [employer] Computer [employer] Teacher: Karolyn Jay Start: 03-14-2020 End: 03-14-2020 Cardiology Visit Report Comments: See Note; NOTES: [facility] [address] [place] [address] [address] [place] [address] OFFICE VISIT Date of Service: 03/14/20 MR#: [id number] Acct: [id number] Name: СЕРГЕЙ ALMEIDA Rep #: [id number] : 1945 Provider: Dr. Dax Rodriguez MD Age/Sex: 74/M Location: [facility] Status: Signed [facility] History of Present Illness Details: This is a 74-year-old gentleman that presents here today for a follow-up. He has a history of coronary artery disease status post coronary bypass surgery with a left internal mammary artery to left anterior descending artery saphenous vein graft to diagonal branch and obtuse marginal branch. He also has a history of mitral valve prolapse as well as mitral regurgitation. In February of 2017 he underwent a heart catheterization which demonstrated patency of his left internal mammary artery to the left anterior descending artery as well as the saphenous vein graft to diagonal branch. The saphenous vein graft to the obtuse marginal branch was occluded. From a cardiac standpoint since his hospital stay, patient is doing well. He does not have any chest discomfort/heaviness/tightne ss. His exercise tolerance is stable for his age. His major issue at this particular time is that he has been short of breath with exertion. He has not had any chest pain or paroxysmal nocturnal dyspnea or pedal edema no near syncope or syncope. Intake Vital Signs 03/14/20 Height 5 ft 10 in 03/14/20 Weight: 175 lb 03/14/20 BMI 25.1 03/14/20 BP 124/71 H 03/14/20 Respiration 16 03/14/20 Pulse 64 03/14/20 Pulse Oximetry (%) 97 Intake Visit Reasons: 9 M FU Allergies bee venom protein (honey bee) Allergy (Unknown, Verified 03/14/20 11:33) hives/anaphylaxis Medications Cholecalciferol (VIT D3) [Vitamin D3] 1,000 unit PO DAILY 01/14/14 [History Confirmed 03/14/20] Multivitamins,Therapeutic [Multivitamin] 1 tab PO DAILY 01/14/14 [History Confirmed 03/14/20] Latanoprost 0.005% [Xalatan Opthalmic] 1 drp EACH EYE QHS 01/03/17 [History Confirmed 03/14/20] Newcastle-3 Fatty Acids/Fish Oil [[place] 3 Fish Oil Softgel] 1 ea PO DAILY 01/03/17 [History Confirmed 03/14/20] Cinnamon Bark [Cinnamon] 500 mg PO DAILY 10/07/18 [History Confirmed 03/14/20] Magnesium Oxide [Magnesium] 500 mg PO DAILY 10/07/18 [History Confirmed 03/14/20] Ubidecarenone/Vit E Acet [Co Q-10 100 mg Softgel] 1 cap PO DAILY 10/07/18 [History Confirmed 03/14/20] Vitamin B Complex/Folic Acid [B Complex Number 1 Tablet] 1 tab PO DAILY 10/07/18 [History Confirmed 03/14/20] Epi Pen (for allergic rxn) 0.3 mg IM X1 01/19/19 [History Confirmed 03/14/20] hydrochlorothiazide 25 mg tablet 12.5 mg PO DAILY #45 tab 06/07/19 [Rx Confirmed 03/14/20] rosuvastatin 5 mg tablet 5 mg PO QHS #90 tab 08/16/19 [Rx Confirmed 03/14/20] levothyroxine 100 mcg tablet 100 mcg PO DAILY #90 tab 09/02/19 [Rx Confirmed 03/14/20] nitroglycerin 0.4 mg sublingual tablet 0.4 mg SUBLINGUAL Q5M PRN #25 tab 12/07/19 [Rx Confirmed 03/14/20] metoprolol tartrate 25 mg tablet 12.5 mg PO BID #90 tab 02/07/20 [Rx Confirmed 03/14/20] ramipril 10 mg capsule 10 mg PO BID #180 cap 02/07/20 [Rx Confirmed 03/14/20] aspirin 325 mg tablet 325 mg PO DAILY 03/14/20 [History Confirmed 03/14/20] [facility] Medical History 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) Atherosclerotic heart disease of [place] coronary artery without angina pectoris (Chronic) 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) Nonrheumatic mitral (valve) prolapse (Chronic) Nonrheumatic mitral (valve) insufficiency (Chronic) Essential hypertension (Chronic) Hyperlipidemia (Chronic) Prostate cancer (Chronic) Elevated PSA (Chronic) Hypothyroidism (Chronic) Urgency-frequency syndrome (Chronic) Surgical History H/O coronary artery bypass surgery (Resolved 11/1994) History of left heart catheterization (Chronic) H/O prostatectomy (Resolved) Family History Father , of Burleson's disease Burleson's disease Mother , Age 60 of [place] CAD (coronary artery disease) Myocardial infarction Brother CAD (coronary artery disease) history of cabg Brother CAD (coronary artery disease) Stented coronary artery Diabetes Sister CAD (coronary artery disease) Myocardial infarction Hypertension Social History (Updated 03/14/20 @ 11:[address] Dax Rodriguez MD) Smoking Status: Former smoker alcohol intake: current alcohol intake frequency: other Alcohol type: beer, wine caffeine: Yes Type: coffee Number of servings: 3 ROS Const Const: Negative for fatigue, weakness, headache(s), frequent falls, difficulty sleeping or excessive sweating Eyes Eyes: Negative for loss of peripheral vision, transient loss of vision, blurry vision, double vision or tunnel vision ENT ENT: Negative for headache(s), dizziness, Nosebleed/epistaxis or balance problems Cardio Chest Pain: No Palpitations: No Edema: None Muscle aches with walking: None Resp Respiratory: Positive for SOB with activity (More SOB when walking dog, resolves with rest); negative for SOB at rest, SOB orthopnea SOB lying down, Cough or paroxysmal nocturnal dyspnea GI GI: Negative nausea, vomiting, heartburn or black,tarry stools : Negative for hematuria Musc Musc: Negative for muscle aches/ myalgia, muscle weakness, joint pain or balance problems Skin Skin: Negative non-healing lesions, rash or unusual bruising Neuro Neuro: Positive for orthostatic symptoms (When changing positions); negative for dizziness, lightheadedness, near syncope, syncope, frequent falls, headache(s), weakness, blurry vision, double vision or lack of coordination Santino Hematologic/Lymphatic: Negative for easy bleeding or easy bruising Endo Endo: Negative for fatigue, excessive sweating or increased thirst/drinking Psych Psych: Negative for anxiety or depression Allergy Allergy/Immunology: Negative for hives, Negative for rash Cardiology Exam Const Appearance: cooperative, healthy appearing, no acute distress, well developed and well groomed Nutritional Appearance: average body habitus and well nourished Orientation: alert, awake and oriented x3 Head Head: normal to inspection, normocephalic and atraumatic Ears: hearing grossly normal bilaterally and external ears normal Nose: external nose normal, nares normal, nasal mucous membranes and turbinates normal, septum normal, no nasal discharge Face and Sinus: face symmetric Mouth: oral mucosae normal, tongue normal, oropharynx normal and moist mucous membranes Teeth and gingiva: dentition normal Throat: posterior oropharynx normal, tonsils normal and uvula midline Eyes General: appearance normal, both eyes and all related structures Eyelids: eyelids normal Conjunctivae: conjunctivae normal Pupils: PERRL, normal by confrontation and accommodation normal EOM: EOM intact bilaterally Neck Neck: normal visual inspection, trachea midline and no JVD JVD: +5 Carotids: normal carotid upstroke and bounding pulses Chest Chest inspection: normal inspection of the chest, symmetric chest movement and normal respiratory effort Auscultation: Bilateral: Clear to Auscultation Cardio Palpation: normal PMI Rate: regular rate Rhythm: regular rhythm Heart sounds: S1 normal, S2 normal and normal, physiologic split S2; negative rub, gallop or murmur GI GI: normal to inspection, soft, no hepatosplenomegaly and bowel sounds present Neuro General: alert, awake, oriented x3, gait normal, moves all extremities and no focal sensory deficit Skin Skin: no rashes or lesions noted Extremities Pulses: Normal: Right Femoral Pulse, Left Femoral Pulse, Right Dorsalis Pedis Pulse, Left Dorsalis Pedis Pulse, Right Posterior Tibial Pulse, Left Posterior Tibial Pulse, Right Radial Pulse, Left Radial Pulse Lower Extremity Edema: None: Bilateral Musculoskel Musculoskeletal: No joint tenderness Psych Psychological: normal affect Assessment Plan 1. Shortness of breath R06.02 Plan He does complain of shortness of breath with exertion. My recommendation is for us to obtain an echocardiogram to reassess his ventricular function, and to the mitral valve. In addition a stress test will be performed to exclude ischemia as a possibility. As you remember his bypass grafts are over 25 years old. Depending on the findings further recommendations will be made. Orders Orders: Echo Complete Today 2. H/O coronary artery bypass surgery Z95.1 CABG x 3 SWANSON-LAD, SVG-D1, SVG-OM2 11/1994 Plan He is status post coronary bypass graft surgery as noted above. His last catheterization demonstrated a patent SWANSON to the LAD and saphenous vein graft to the diagonal branch. Orders Orders: Nuclear Stress Test - Treadmil Today 3. Essential hypertension I10 Plan His blood pressure is under excellent control at this particular time and no changes were made with respect to his medications. 4. Pure hypercholesterolemia E78.00 Plan He does have a history of hyperlipidemia. His most recent lipid profile demonstrates a total cholesterol 137, HDL of 41, LDL 68 and triglycerides 139. 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) Coding Level of Care Code Off vis,est,level 4 Diagnoses Shortness of breath R06.02 H/O coronary artery bypass surgery Z95.1 Essential hypertension I10 Pure hypercholesterolemia E78.00 ?Hyperlipidemia type: pure hypercholesterolemia Coding Level of Care Code Off vis,est,level 4 Diagnoses Shortness of breath R06.02 H/O coronary artery bypass surgery Z95.1 Essential hypertension I10 Pure hypercholesterolemia E78.00 ?Hyperlipidemia type: pure hypercholesterolemia Supplemental Info Supplemental Information Labs LDL Cholesterol 68 mg/dL (0-130) 03/06/20 HDL Cholesterol 41 mg/dL (40-) 03/06/20 Triglycerides 139 mg/dL (-199) 03/06/20 VLDL Cholesterol 28 mg/dL (5-40) 03/06/20 Diagnostics Electrocardiogram 01/19/19 Venous Doppler Study 09/16/19 03/14/20 1154 <Electronically signed by Dax Rodriguez MD> Date Dax Rodriguez MD Cosigner Signature: Date (if applicable) CC: DO Hilton Myles Start: 09-16-2019 End: 09-16-2019 Venous Duplex US, Unilateral Comments: See Note; NOTES: [facility] [address] [place] [address] Venous Duplex US, Unilateral 09/16/19 0803 MR#: [id number] Acct: [id number] Name: СЕРГЕЙ ALMEIDA Rep #: [id number] : 1945 74 From: Сергей Soler MD Attending Dr: Charlotte Head, ENVIRONMENTAL CONSULTANT-C Status: REG CLI Ordering Dr: Charlotte Head ENVIRONMENTAL CONSULTANT-C Date: 09/16/19 Location: [facility] Sex: M C Admitted: Reason For Study: pain Procedure LEFT Exam performed in department. GSV is normal. The exam was abbreviated due to the COVID 19 CFV is compressible, spontaneous, phasic, protocol. competent, and demonstrates normal The exam was diagnostic. augmentation. A preliminary report was called and/or faxed FV is compressible, spontaneous, phasic, to Charlotte Head. competent and demonstrates normal augmentation. POP V is compressible, spontaneous, phasic, competent and demonstrates normal augmentation. T/P Trunk is compressible. PTV is compressible. LT PerV is compressible. Interpretation Summary Deep veins of the left lower extremity are patent and compressible segmentally. There is no evidence of left lower extremity deep vein thrombosis. Valvular competence appears intact within the proximal deep venous system on the left . The left great saphenous vein appears patent and compressible segmentally. _ Ordering Physician: Charlotte Head Performed By: Amandeep Kelly RVT and Student 09/16/192014 Date Сергей Soler MD CC: ENVIRONMENTAL CONSULTANT-C Charlotte Head; Dr. Hilton Jay DO Date Dictated: 09/16/19802 Date Transcribed: 09/16/192014 [employer] Computer [employer] Teacher: Signed Eri Sonido Work Phone: Start: 09-13-2019 End: 09-13-2019 Knee 4 or More Views Comments: See Note; NOTES: [facility] Imaging Services [address] [place] [address] Knee 4 or More Views MR#: [id number] Acct: [id number] Name: СЕРГЕЙ ALMEIDA Rep #: [id number] : 1945 M 74 From: Chano King MD PCP: Dr. Hilton Jay DO Status: REG CLI Study: Knee 4 or More Views Date of Exam: 09/13/19 Exam# [id number] Ordering Dr: Charlotte Head ENVIRONMENTAL CONSULTANT-Leonel STUDY: X-RAY - LEFT KNEE REASON FOR EXAM: Male, 74 years old. Left knee pain TECHNIQUE: 4 view(s) of the knee. COMPARISON: None. FINDINGS: Normal visualized distal femur. Normal visualized proximal tibia and fibula. Normal proximal tibiofibular articulation. There is mild degenerative arthrosis of the medial femorotibial compartment. There is mild degenerative arthrosis of the lateral femorotibial compartment. There is mild degenerative arthrosis of the patellofemoral articulation. The soft tissue structures are unremarkable. RAD/Knee 4 or More Views IMPRESSION: Degenerative arthrosis. Electronically Signed: Wellington King MD at 12:09 EDT , Service support , CC: ENVIRONMENTAL CONSULTANT-Leonel Head; Dr. Hilton Jay DO [employer] Computer [employer] Teacher: Signed Eri Sonido Work Phone: Start: 02-02-2019 End: 02-02-2019 Carotid Duplex Ultrasound Comments: See Note; NOTES: [facility] [address] [place] [address] Carotid Duplex Ultrasound 02/02/19 0853 MR#: [id number] Acct: [id number] Name: СЕРГЕЙ ALMEIDA Rep #: [id number] : 1945 73 From: Сергей Soler MD Attending Dr: Hilton Jay DO Status: REG CLI Ordering Dr: Hilton Jay DO Date: 02/02/19 Location: [facility] Sex: M C Admitted: Reason For Study: TIA, Tansient confusion Rt. Velocities/BP Lt. Velocities/BP Prox CCA 116/14.7 cm/sec. Prox CCA 109.7/17.6 cm/sec. Mid CCA 103.4/14.7 cm/sec. Mid CCA 99.8/20.0 cm/sec. Dist CCA 103.4/14.7 cm/sec. Dist CCA 97.4/20.0 cm/sec. Prox ICA 81.2/14.7 cm/sec. Prox ICA 74.1/17.6 cm/sec. Mid ICA 99.5/23.9 cm/sec. Mid ICA 108.3/26.1 cm/sec. Dist ICA 94.3/26.5 cm/sec. Dist ICA 112.1/26.2 cm/sec. Rt. ICA/CCA = 1.0. Lt. ICA/CCA = 1.1. Prox ECA 109.9/5.6 cm/sec. Prox ECA 94.9/5.3 cm/sec. Rt. Vert. 29.6 cm/sec. Lt. Vert. 98.6/18.8 cm/sec. Right Extracranial There is homogeneous, smooth atherosclerotic plaque noted in the right common carotid artery. There is heterogeneous, irregular atherosclerotic plaque noted in the right internal carotid artery. There is homogeneous, smooth atherosclerotic plaque noted in the right external carotid artery. Antegrade flow is noted in the right vertebral artery. Left Extracranial There is intimal thickening but no significant atherosclerotic plaque noted in the left common carotid artery. There is heterogeneous, irregular atherosclerotic plaque noted in the left internal carotid artery. There is intimal thickening but no significant atherosclerotic plaque noted in the left external carotid artery. Antegrade flow is noted in the left vertebral artery. Procedure Carotid Duplex 25463. The exam was diagnostic. Exam performed in department. Interpretation Summary Mild (<50%) stenosis right extracranial internal carotid. Mild (<50%) stenosis left extracranial internal carotid. Flow within the vertebral arteries is antegrade bilaterally. Ordering Physician: Hilton Jay Performed By: Jorge Luis Kelly RVT 02/02/192015 Date Сергей Soler MD CC: Hilton Jay DO Date Dictated: 02/02/19852 Date Transcribed: 02/02/192015 [employer] Computer [employer] Teacher: Signed Hilton Jay Work Phone: Start: 02-02-2019 End: 02-02-2019 Brain without Contrast Comments: See Note; NOTES: [facility] Imaging Services [address] [place] [address] Brain without Contrast MR#: [id number] Acct: [id number] Name: СЕРГЕЙ ALMEIDA Rep #: [id number] : 1945 M 73 From: Bradford Lomas DO PCP: Hilton Jay DO Status: REG CLI Study: Brain without Contrast Date of Exam: 02/02/19 Exam# [id number] Ordering Dr: Hilton Jay DO STUDY: MRI BRAIN WITHOUT CONTRAST REASON FOR EXAM: Male, 73 years old. The patient presents with a history of TIAs. TECHNIQUE: Standardized multiplanar fat and water weighted pulse sequences were obtained. COMPARISON: None. FINDINGS: There is mild age-related cerebral atrophy with mild diffuse sulcal prominence with minimal ventricular enlargement. There is a small arachnoid cyst within the left anterior middle cranial fossa, anterior to the temporal tip measuring 24 x 12 x 26 mm (AP x mediolateral x craniocaudal). There are a limited number of small white matter hyperintensities, distributed throughout the deep white matter tracts of the cerebral hemispheres, consistent with mild chronic white matter ischemic changes. There is no evidence for recent intracranial ischemia or other cause of cytotoxic edema on diffusion weighted imaging (DWI). Normal T2* images of the brain without demonstrated susceptibility artifact. There is no demonstrated hemosiderin stain. Normal bilateral basal ganglia. Normal thalami. There is no extra-axial fluid accumulation. Normal flow voids within the major intracranial circulation suggesting patency by spin echo criteria. Normal sella turcica, pituitary gland, infundibular stalk, optic chiasm and hypothalamus. Normal tectal plate and pineal gland. Normal midbrain, mir and medulla. Normal cerebellum. Normal basal cisterns. Normal bilateral internal auditory canals. No demonstrated orbital abnormality, within the constraints of a routine brain study. There is minimal mucosal inflammatory disease of the paranasal sinuses consistent with mild chronic sinusitis. Normal calvarium and skull base. Normal visualized soft tissue structures. Normal visualized upper cervical spine. MRI/Brain without Contrast IMPRESSION: 1. Mild age-related cerebral atrophy with diffuse sulcal prominence and with minimal chronic white matter ischemic changes. 2. Normal diffusion weighted images without evidence of a recent intracranial ischemic process. 3. Small arachnoid cyst within the left anterior middle cranial fossa and to the temporal tip. 4. Minimal chronic sinusitis. Electronically Signed: Bradford Lomas DO at 10:55 EST Tel , Service support , CC: Hilton Jay DO [employer] Computer [employer] Teacher: Signed Hilton Jay Work Phone: Start: 01-22-2019 End: 01-22-2019 12 lead ECG Comments: See Note; NOTES: [facility] Cardiovascular Services [address] [address] 12 Lead EKG 01/19/19 1335 MR#: [id number] Acct: [id number] Name: СЕРГЕЙ ALMEIDA Rep #: [id number] : 1945 73 From: Alex Dawn MD Attending Dr: Status: DEP ER Ordering Dr: Candelario Rangel DO Date: 01/19/19 Location: ED Sex: M C Admitted: Test Reason : CONFUSION Blood Pressure : / mmHG Vent. Rate : 046 BPM Atrial Rate : 046 BPM P-R Int : 172 ms QRS Dur : 124 ms QT Int : 492 ms P-R-T Axes : 037 -45 -18 degrees QTc Int : 430 ms Sinus bradycardia Left anterior fascicular block Left ventricular hypertrophy with QRS widening Abnormal ECG Confirmed by ALEX DAWN ([id number]), material expeditor MARGOT ARANDA ([id number]) on 01/22/2019 11:26:11 AM Referred By: DEVONTE Confirmed By:ALEX DAWN 01/22/191125 Date Alex Dawn MD CC: Candelario Rangel DO; Hilton Lawrence Start: 01-19-2019 End: 01-19-2019 Emergency Department Summary Comments: See Note; NOTES: [facility] Medical Records Department [address] [place] [address] Emergency Department Summary 01/19/19 1408 MR#: [id number] Acct: [id number] Name: СЕРГЕЙ ALMEIDA Rep #: [id number] : 1945 73 From: Candelario Rangel DO PCP: Hilton Jay DO Status: DEP ER - ER Visit Summary Date of Service: 01/19/19 Chief Complaint: TIA History of Present Illness: The patient is a 73 M who presents with possible TIA that occurred last night. states the patient was confused and argumentative last night that lasted approximately 45 minutes to 1 hour. states patient was having difficulty using his phone. states the patient became upset and argumentative with her when she tried to correct him. states patient refused to come to the emergency department for evaluation last night. called Dr. Rodriguez's office and patient was referred to the emergency department. Physical Examination: Vital signs are stable. Patient is afebrile. Patient is no acute distress. Oral mucosa is pink and moist. Neck is supple. Trachea is midline. There is no JVD. Heart was regular rate and rhythm. Lungs are clear and equal bilaterally. Abdomen is soft. Bowel sounds are normal. There is no tenderness. Cranial nerves II through XII are intact. There are no focal motor or sensory deficit is noted. Patient ambulated without difficulty. Skin is warm and dry. Extremities are intact. There is no calf tenderness or edema. Test Results: EKG showed sinus bradycardia with a rate of 46. There are no acute ST or T wave changes. CT scan of the brain was obtained. There is an arachnoid cyst but no acute intracranial abnormality. This was interpreted by the radiologist and reviewed by myself. CBC basic metabolic profile and troponin were obtained and were all within normal limits. Emergency Department Course and Treatment: Patient had no further symptoms here in the emergency department. Case was discussed with Dr. Rodriguez. Patient will follow-up in 5 to 7 days. Patient understood and was agreeable with the plan. All questions were answered. Disposition: Discharge home Impression: 1. TIA This note was generated with [employer] dictation software. It may contain incorrect words, spelling, and punctuation that were not noted in review of the chart prior to signing ED Disposition - Plan for ED Patient: Disposition: Home or Assisted Living Diagnosis: TIA (transient ischemic attack) Instructions: Transient Ischemic Attack (TIA) Referrals: Hilton Jay DO [Primary Care Provider] - 5-7 Days What to do if you have Problems For any increased pain, shortness of breath, bleeding, nausea or vomiting, chest pain, or any unexpected problems, contact your Primary Care Provider. Call [facility] ([phone]) or report to the closest Emergency Room. Call 911 if necessary. 01/19/19 1650 <Electronically signed by Candelario Rangel DO> Date Candelario Rangel DO Cosigner Signature (If Indicated): Date CC: Hilton Ferro Start: 01-19-2019 End: 01-19-2019 Brain/Head without Contrast Comments: See Note; NOTES: [facility] Imaging Services [address] [place] [address] Brain/Head without Contrast MR#: [id number] Acct: [id number] Name: СЕРГЕЙ ALMEIDA Rep #: [id number] : 1945 M 73 From: Duke Tinoco MD PCP: Hilton Jay DO Status: [facility] Study: Brain/Head without Contrast Date of Exam: 01/19/19 Exam# [id number] Ordering Dr: Candelario Rangel DO STUDY: CT BRAIN WITHOUT CONTRAST REASON FOR EXAM: Male, 73 years old. RADIATION DOSAGE (If Supplied By Facility): CTDIvol = ( 44.99 ) mGy, DLP = ( 779.24 ) mGycm TECHNIQUE: Transaxial CT imaging of the brain was performed without administration of intravenous contrast material. Individualized dose optimization techniques were used for this CT. COMPARISON: No relevant priors. FINDINGS: There is slight prominence of the ventricular system and cerebral sulci which are age-related. No evidence of increased or decreased brain density. A small arachnoid cyst seen in the left middle fossa. No epidural, subdural or intracerebral hematoma. The orbits are unremarkable. The sinuses and mastoid air cells are clear. The cranial vault and skull base are intact. CT/Brain/Head without Contrast IMPRESSION: Small arachnoid cyst anterior aspect of the left temporal lobe. Mild age-related changes. Electronically Signed: Duke Tinoco, at 13:35 EST Tel , Service support , CC: Candelario Rangel DO; Hilton Jay DO [employer] Computer [employer] Teacher: Signed Hilton Jay Start: 12-17-2018 End: 12-17-2018 Cardiology Visit Report Comments: See Note; NOTES: [facility] [address] [place] [address] OFFICE VISIT Date of Service: 12/17/18 MR#: [id number] Acct: [id number] Name: СЕРГЕЙ ALMEIDA Rep #: [id number] : 1945 Provider: Dax Rodriguez MD Age/Sex: 73/M Location: [facility] Status: Signed [facility] HPI History of Present Illness Details: This is a 73-year-old gentleman that presents here today for a follow-up. He has a history of coronary artery disease status post coronary bypass surgery with a left internal mammary artery to left anterior descending artery saphenous vein graft to diagonal branch and obtuse marginal branch. He also has a history of mitral valve prolapse as well as mitral regurgitation. In February of 2017 he underwent a heart catheterization which demonstrated patency of his left internal mammary artery to the left anterior descending artery as well as the saphenous vein graft to diagonal branch. He successfully underwent robotic prostate surgery without any problems. October 07, 2018 he was admitted to [facility] for chest pain, nausea near syncope. Troponins were negative. Stress test was negative. Plavix and aspirin were added to his regiment. From a cardiac standpoint since his hospital stay, patient is doing well. He does not have any chest discomfort/heaviness/tightne ss. His exercise tolerance is stable for his age. He does not have any worsening symptoms of shortness of breath. He denies any PND. He does not have any orthopnea. He does not have any symptoms of congestive heart failure. He does not have any palpitations that he is aware of. He does not have any lightheadedness or dizziness. He does not have any near-syncope or syncope. He does not have any lower extremity edema. He does not have any symptoms of claudication. He did undergo stress testing as well as an echocardiogram which demonstrated no evidence of ischemia the right ventricle was moderately dilated. His physical exam demonstrates clear lung doll regular rate and rhythm and no pedal edema. Intake Vital Signs12/17/18 Height 5 ft 10 in 12/17/18 Weight: 178 lb Intake Visit Reasons: 6 M FU Allergies bee venom protein (honey bee) Allergy (Unknown, Verified 12/17/18 11:33) hives/anaphylaxis Medications Aspirin [Aspirin, Baby] 81 mg PO DAILY 01/14/14 [History Confirmed 12/17/18] Cholecalciferol (VIT D3) [Vitamin D3] 1,000 unit PO DAILY 01/14/14 [History Confirmed 12/17/18] Multivitamins,Therapeutic [Multivitamin] 1 tab PO DAILY 01/14/14 [History Confirmed 12/17/18] Latanoprost 0.005% [Xalatan Opthalmic] 1 drp EACH EYE QHS 01/03/17 [History Confirmed 12/17/18] Newcastle-3 Fatty Acids/Fish Oil [Newcastle 3 Fish Oil Softgel] 1 ea PO DAILY 01/03/17 [History Confirmed 12/17/18] hydrochlorothiazide 25 mg tablet 12.5 mg PO DAILY #45 tab 04/13/18 [Rx Confirmed 12/17/18] levothyroxine 100 mcg tablet 100 mcg PO DAILY #90 tab 06/10/18 [Rx Confirmed 12/17/18] Cinnamon Bark [Cinnamon] 500 mg PO DAILY 10/07/18 [History Confirmed 12/17/18] Magnesium Oxide [Magnesium] 500 mg PO DAILY 10/07/18 [History Confirmed 12/17/18] Rosuvastatin Calcium 5 mg PO QHS 10/07/18 [History Confirmed 12/17/18] Ubidecarenone/Vit E Acet [Co Q-10 100 mg Softgel] 1 cap PO DAILY 10/07/18 [History Confirmed 12/17/18] Vitamin B Complex [B Complex # 1] 1 tab PO DAILY 10/07/18 [History Confirmed 12/17/18] metoprolol tartrate 25 mg tablet 12.5 mg PO BID #90 tab 10/15/18 [Rx Confirmed 12/17/18] ramipril 10 mg capsule 10 mg PO BID #180 cap 10/15/18 [Rx Confirmed 12/17/18] nitroglycerin 0.4 mg sublingual tablet 0.4 mg SUBLINGUAL Q5M PRN #25 tab 11/10/18 [Rx Confirmed 12/17/18] PFSH Medical History 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) Atherosclerotic heart disease of [place] coronary artery without angina pectoris (Chronic) Nonrheumatic mitral (valve) prolapse (Chronic) Nonrheumatic mitral (valve) insufficiency (Chronic) Old myocardial infarction (Chronic) Essential hypertension (Chronic) Hyperlipidemia (Chronic) Prostate cancer (Chronic) Elevated PSA (Chronic) Hypothyroidism (Chronic) Urgency-frequency syndrome (Chronic) Surgical History H/O coronary artery bypass surgery (Resolved 11/1994) History of left heart catheterization (Chronic) H/O prostatectomy (Resolved) Family History Father , of Burleson's disease Rohini's disease Mother , Age 60 of [place] CAD (coronary artery disease) Myocardial infarction Brother CAD (coronary artery disease) history of cabg Brother CAD (coronary artery disease) Stented coronary artery Diabetes Sister CAD (coronary artery disease) Myocardial infarction Hypertension Social History (Updated 12/17/18 @ 11:50 by Dax Rodriguez MD) Smoking Status: Never smoker alcohol intake: current alcohol intake frequency: other Alcohol type: beer, wine caffeine: Yes Type: coffee Number of servings: 3 ROS Const Const: Negative for fatigue, weakness, headache(s), frequent falls, difficulty sleeping or excessive sweating Eyes Eyes: Negative for loss of peripheral vision, transient loss of vision, blurry vision, double vision or tunnel vision ENT ENT: Negative for headache(s), dizziness, Nosebleed/epistaxis or balance problems Cardio Chest Pain: No Palpitations: No Edema: None Muscle aches with walking: None Resp Respiratory: Negative for SOB with activity, SOB at rest, SOB orthopnea\SOB lying down, Cough or paroxysmal nocturnal dyspnea GI GI: Negative nausea, vomiting, heartburn or black,tarry stools : Negative for hematuria Musc Musc: Negative for muscle aches/ myalgia, muscle weakness, joint pain or balance problems Skin Skin: Negative non-healing lesions, rash or unusual bruising Neuro Neuro: Negative for dizziness, lightheadedness, near syncope, syncope, orthostatic symptoms, frequent falls, headache(s), weakness, blurry vision, double vision or lack of coordination Santino Hematologic/Lymphatic: Negative for easy bleeding or easy bruising Endo Endo: Negative for fatigue, excessive sweating or increased thirst/drinking Psych Psych: Negative for anxiety or depression Allergy Allergy/Immunology: Negative for hives, Negative for rash Cardiology Exam Const Appearance: cooperative, healthy appearing, no acute distress, well developed and well groomed Nutritional Appearance: average body habitus and well nourished Orientation: alert, awake and oriented x3 Head Head: normal to inspection, normocephalic and atraumatic Ears: hearing grossly normal bilaterally and external ears normal Nose: external nose normal, nares normal, nasal mucous membranes and turbinates normal, septum normal, no nasal discharge Face and Sinus: face symmetric Mouth: oral mucosae normal, tongue normal, oropharynx normal and moist mucous membranes Teeth and gingiva: dentition normal Throat: posterior oropharynx normal, tonsils normal and uvula midline Eyes General: appearance normal, both eyes and all related structures Eyelids: eyelids normal Conjunctivae: conjunctivae normal Pupils: PERRL, normal by confrontation and accommodation normal EOM: EOM intact bilaterally Neck Neck: normal visual inspection, trachea midline and no JVD JVD: +5 Carotids: normal carotid upstroke and bounding pulses Chest Chest inspection: normal inspection of the chest, symmetric chest movement and normal respiratory effort Auscultation: Bilateral: Clear to Auscultation Cardio Palpation: normal PMI Rate: regular rate Rhythm: regular rhythm Heart sounds: S1 normal, S2 normal and normal, physiologic split S2; negative rub, gallop or murmur GI GI: normal to inspection, soft, no hepatosplenomegaly and bowel sounds present Neuro General: alert, awake, oriented x3, gait normal, moves all extremities and no focal sensory deficit Skin Skin: no rashes or lesions noted Extremities Pulses: Normal: Right Femoral Pulse, Left Femoral Pulse, Right Dorsalis Pedis Pulse, Left Dorsalis Pedis Pulse, Right Posterior Tibial Pulse, Left Posterior Tibial Pulse, Right Radial Pulse, Left Radial Pulse Lower Extremity Edema: None: Bilateral Musculoskel Musculoskeletal: No joint tenderness Psych Psychological: normal affect Assessment AND Plan 1. H/O coronary artery bypass surgery Z95.1 CABG x 3 SWANSON-LAD, SVG-D1, SVG-LCx 11/1994 Plan He is status post coronary artery bypass surgery with 2 out of 3 bypass grafts which are patent at this time I would not suggest that we make any changes he appears to be doing quite well. 2. Essential hypertension I10 Plan His blood pressure appears to be under good control on the current medical therapy and no changes will be made. 3. Pure hypercholesterolemia E78.00 Plan He does have a history of hyperlipidemia. His most recent lipid profile demonstrated a total cholesterol 132, LDL of 66 and HDL of 38. He will remain on the same dose of medications. Plan Detail Follow Up 6 Months (mmm) Coding Level of Care Code Off vis,est,level 3 Diagnoses H/O coronary artery bypass surgery Z95.1 Essential hypertension I10 Pure hypercholesterolemia E78.00 Hyperlipidemia type: pure hypercholesterolemia Coding Level of Care Code Off vis,est,level 3 Diagnoses H/O coronary artery bypass surgery Z95.1 Essential hypertension I10 Pure hypercholesterolemia E78.00 Hyperlipidemia type: pure hypercholesterolemia Supplemental Info Supplemental Information Labs LDL Cholesterol 66 mg/dL (0-130) 12/15/18 HDL Cholesterol 38 mg/dL (40-) L 12/15/18 Triglycerides 139 mg/dL (-199) 12/15/18 VLDL Cholesterol 28 mg/dL (5-40) 12/15/18 Diagnostics Electrocardiogram 10/08/18 Echocardiogram 10/07/18 Stress Echocardiogram 10/08/18 Chest X-Ray 10/07/18 12/17/18 1150 <Electronically signed by Dax Rodriguez MD> Date Dax Rodriguez MD Cosigner Signature: Date (if applicable) CC: Hilton Ferro Start: 10-07-2018 End: 10-07-2018 Chest 1 View (Portable) Comments: See Note; NOTES: [facility] Imaging Services [address] [place] [address] Chest 1 View (Portable) MR#: [id number] Acct: [id number] Name: СЕРГЕЙ ALMEIDA Rep #: [id number] : 1945 M 73 From: Jaden Solis MD PCP: Hilton Jay DO Status: REG ER Study: Chest 1 View (Portable) Date of Exam: 10/07/18 Exam# [id number] Ordering Dr: Avni Powell MD STUDY: X-RAY CHEST REASON FOR EXAM: Male, 73 years old. Chest pain, shortness of breath. TECHNIQUE: Single AP portable view of the chest. COMPARISON: 04/29/2018 FINDINGS: Status post median sternotomy. The lungs are clear and expanded. There is no demonstrated pleural abnormality. Normal size heart. Suspect a moderate-sized hiatal hernia. Normal visualized pulmonary arteries. Normal visualized aortic arch and descending thoracic aorta. Normal visualized thoracic spine. Normal visualized ribs, clavicles, and shoulders. There is no demonstrated abnormality of the visualized soft tissue structures of the upper abdomen. RAD/Chest 1 View (Portable) IMPRESSION: No active disease. Electronically Signed: Jaden Solis MD at 12:01 EDT Tel , Service support , CC: Avni Powell MD; Hilton Jay DO [employer] Computer [employer] Teacher: Signed Reina Ames Work Phone: Start: 06-02-2018 End: 06-02-2018 Cardiology Visit Report Comments: See Note; NOTES: [facility] [address] [place], [place] [address] OFFICE VISIT Date of Service: 06/02/18 MR#: [id number] Acct: [id number] Name: СЕРГЕЙ ALMEIDA Rep #: [id number] : 1945 Provider: Dax Rodriguez MD Age/Sex: 73/M Location: [facility] Status: Signed HPI HPI Details: СЕРГЕЙ ALMEIDA, is a 73 M who presents to the office today for a follow-up visit. He is a gentleman with a history of coronary artery disease status post coronary bypass surgery with a left internal mammary artery to left anterior descending artery saphenous vein graft to diagonal branch and obtuse marginal branch. He also has a history of mitral valve prolapse as well as mitral regurgitation. You remember he underwent a cardiac catheterization in February of 2017 and it demonstrated patency of his left internal mammary artery to the left anterior descending artery as well as the saphenous vein graft to diagonal branch. He successfully underwent robotic prostate surgery without any problems. He complains of occasional diaphoretic episodes which do not appear to be very well explained. He has not had any neck arm or jaw discomfort suggest angina no dizziness no diaphoresis no near syncope or syncope he has been compliant with his medications. His physical exam today demonstrates clear lung doll regular rate and rhythm a soft 2/6 systolic murmur noted at the apex radiating to the axilla. Intake Vital Signs06/02/18 Height 5 ft 11 in 06/02/18 Weight: 183 lb 06/02/18 Body Mass Index (BMI) 25.5 06/02/18 Blood Pressure 120/75 06/02/18 Blood Pressure Location Lt brachial Intake Visit Reasons: 6 M FU (echo) Bilingual Office Assistant Required: No Accompanied by: Is patient in pain?: No Allergies bee venom protein (honey bee) Allergy (Unknown, Verified 06/02/18 09:49) Unknown Medications Aspirin [Aspirin, Baby] 81 mg PO DAILY@0800 01/14/14 [History Confirmed 06/02/18] Cholecalciferol (VIT D3) [Vitamin D3] 1,000 unit PO DAILY 01/14/14 [History Confirmed 06/02/18] Magnesium 500 mg PO DAILY 01/14/14 [History Confirmed 06/02/18] Multivitamins,Therapeutic [Multivitamin] 1 tab PO DAILY 01/14/14 [History Confirmed 06/02/18] Latanoprost 0.005% [Xalatan Opthalmic] 1 drp EACH EYE QHS 01/03/17 [History Confirmed 06/02/18] Newcastle-3 Fatty Acids/Fish Oil [Newcastle 3 Fish Oil Softgel] 1 ea PO DAILY 11/10/17 [History Confirmed 06/02/18] Ubidecarenone/Vitamin E Mixed [Ztj65-Ldu E 100 mg-10 Unit Sfg] 100 mg PO DAILY 01/03/17 [History Confirmed 06/02/18] Vitamin B Complex 1 ea PO DAILY 01/03/17 [History Confirmed 06/02/18] ascorbic acid (vitamin C) 1,000 mg tablet 1 g PO QDAY tab 04/29/17 [History Confirmed 06/02/18] levothyroxine 100 mcg tablet 100 mcg PO DAILY #90 tab 06/16/17 [Rx Confirmed 06/02/18] metoprolol tartrate 25 mg tablet 12.5 mg PO BID #90 tab 08/11/17 [Rx Confirmed 06/02/18] nitroglycerin 0.4 mg sublingual tablet 0.4 mg SUBLINGUAL Q5M PRN #25 tab 08/11/17 [Rx Confirmed 06/02/18] ramipril 10 mg capsule 10 mg PO BID #180 cap 08/11/17 [Rx Confirmed 06/02/18] hydrochlorothiazide 25 mg tablet 12.5 mg PO DAILY #45 tab 04/13/18 [Rx Confirmed 06/02/18] rosuvastatin 5 mg tablet 5 mg PO QDAY #90 tab 05/11/18 [Rx Confirmed 06/02/18] [facility] Medical History Hypothyroidism (Chronic) 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) Hyperlipidemia (Chronic) 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) Nonrheumatic mitral (valve) prolapse (Chronic) Prostate cancer (Chronic) Essential hypertension (Chronic) Surgical History History of left heart catheterization (Chronic) Aortocoronary bypass status (Chronic) H/O prostatectomy (Resolved) Family History Father , of Burleson's disease Burleson's disease Mother , Age 60 of [place] CAD (coronary artery disease) Myocardial infarction Brother CAD (coronary artery disease) history of cabg Brother CAD (coronary artery disease) Stented coronary artery Diabetes Sister CAD (coronary artery disease) Myocardial infarction Hypertension Social History Smoking Status: Never smoker alcohol intake: current alcohol intake frequency: other Alcohol type: beer, wine caffeine: Yes Type: coffee Number of servings: 3 ROS Const Const: Negative for fatigue, weakness, headache(s), frequent falls, night sweats, daytime sleepiness or excessive sweating Eyes Eyes: Negative for blind spots, loss of peripheral vision, transient loss of vision, blurry vision or double vision ENT ENT: Negative for headache(s), dizziness, Nosebleed/epistaxis, balance problems, lip swelling or tongue swelling Cardio Chest Pain: No Palpitations: No Edema: None Muscle aches with walking: None Resp Respiratory: Negative for SOB with activity, SOB at rest, SOB orthopnea\SOB lying down, Cough or paroxysmal nocturnal dyspnea GI GI: Negative nausea, vomiting, heartburn, bright, red blood in stools or black,tarry stools : Negative for hematuria Musc Musc: Negative for muscle aches/ myalgia, muscle weakness, joint pain or balance problems Skin Skin: Negative non-healing lesions, rash or unusual bruising Neuro Neuro: Negative for dizziness, lightheadedness, orthostatic symptoms, frequent falls, headache(s), weakness, blurry vision, double vision or lack of coordination Santino Hematologic/Lymphatic: Negative for easy bleeding or easy bruising Endo Endo: Negative for fatigue, cold intolerance, heat intolerance, excessive sweating, increased thirst/drinking or hair loss Psych Psych: Negative for anxiety or depression Allergy Allergy/Immunology: Negative for throat swelling, Negative for tongue swelling, Negative for hives, Negative for rash, Negative for lip swelling Cardiology Exam Const Appearance: cooperative, healthy appearing, no acute distress, well developed and well groomed Nutritional Appearance: average body habitus and well nourished Orientation: alert, awake and oriented x3 Head Head: normal to inspection, normocephalic and atraumatic Ears: hearing grossly normal bilaterally and external ears normal Nose: external nose normal, nares normal, nasal mucous membranes and turbinates normal, septum normal, no nasal discharge Face and Sinus: face symmetric Mouth: oral mucosae normal, tongue normal, oropharynx normal and moist mucous membranes Teeth and gingiva: dentition normal Throat: posterior oropharynx normal, tonsils normal and uvula midline Eyes General: appearance normal, both eyes and all related structures Eyelids: eyelids normal Conjunctivae: conjunctivae normal Pupils: PERRL, normal by confrontation and accommodation normal EOM: EOM intact bilaterally Neck Neck: normal visual inspection, trachea midline and no JVD JVD: +5 Carotids: normal carotid upstroke and bounding pulses Chest Chest inspection: normal inspection of the chest, symmetric chest movement and normal respiratory effort Auscultation: Bilateral: Clear to Auscultation Cardio Palpation: normal PMI Rate: regular rate Rhythm: regular rhythm Heart sounds: S1 normal, S2 normal and normal, physiologic split S2; negative rub, gallop or murmur Murmur: Grade 2/6, soft and holosystolic GI GI: normal to inspection, soft, no hepatosplenomegaly and bowel sounds present Neuro General: alert, awake, oriented x3, gait normal, moves all extremities and no focal sensory deficit Skin Skin: no rashes or lesions noted Extremities Pulses: Normal: Right Femoral Pulse, Left Femoral Pulse, Right Dorsalis Pedis Pulse, Left Dorsalis Pedis Pulse, Right Posterior Tibial Pulse, Left Posterior Tibial Pulse, Right Radial Pulse, Left Radial Pulse Lower Extremity Edema: None: Bilateral Musculoskel Musculoskeletal: No joint tenderness Psych Psychological: normal affect Assessment AND Plan 1. 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 Rodriguez @ [facility] Plan He is status post coronary artery bypass surgery. His last catheterization demonstrated 2 out of his 3 bypass grafts which were patent the plan will be for him to continue with current risk factor modification. 2. Nonrheumatic mitral (valve) prolapse I34.1 Plan He does have evidence of moderate posterior middle scallop prolapse of the mitral valve. He has 2+ mitral regurgitation and his pulmonary artery systolic pressure was estimated to be 34 mmHg which is unchanged from before. My recommendation is that he continue on the same medical therapy. He does have mild shortness of breath with some exertion but this does not appear to have changed. We will continue to monitor him and I will see him again in approximately 6 months 3. Pure hypercholesterolemia E78.00 Plan He does have a history of hyperlipidemia. He will continue with the current lipid-lowering medications. His last lipid profile demonstrated total cholesterol 126 HDL 39 and LDL of 61. 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 I25.810 Nonrheumatic mitral (valve) prolapse I34.1 Pure hypercholesterolemia E78.00 Hyperlipidemia type: pure hypercholesterolemia Coding Level of Care Code Off vis,est,level 3 Diagnoses 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 I25.810 Nonrheumatic mitral (valve) prolapse I34.1 Pure hypercholesterolemia E78.00 Hyperlipidemia type: pure hypercholesterolemia Supplemental Info Supplemental Information Labs LDL Cholesterol 61 mg/dL (0-130) 06/01/18 HDL Cholesterol 39 mg/dL (40-) L 06/01/18 Triglycerides 123 mg/dL (-199) 06/01/18 VLDL Cholesterol 25 mg/dL (5-40) 06/01/18 Diagnostics Echocardiogram 05/25/18 Chest X-Ray 04/29/18 06/02/18 1004 <Electronically signed by Dax Rodriguez MD> Date Dax Rodriguez MD Cosigner Signature: Date (if applicable) CC: Hilton Ferro Start: 05-25-2018 End: 05-25-2018 Echocardiogram Complete Comments: See Note; NOTES: [facility] Cardiovascular Services [address] [place] [address] Echo Complete 05/25/18 0853 MR#: [id number] Acct: [id number] Name: СЕРГЕЙ ALMEIDA Rep #: [id number] : 1945 73 From: Dax Rodriguez MD Attending Dr: Dax Rodriguez MD Status: REG CLI Ordering Dr: Dax Rodriguez MD Date: 05/25/18 Location: CVS Sex: M C Admitted: Reason For Study: MVP Procedure This was a 2D Doppler, Color Flow transthoracic echocardiogram. Exam performed in department. Left Ventricle Normal LV size. The estimated ejection fraction is 60 %. Stage 2 diastolic dysfunction. No regional wall motion abnormalities noted. Right Ventricle Normal RV size. Normal systolic function. Atria The left atrium is mildly enlarged. Normal right atrium. Mitral Valve Bileaflet diffuse mitral valve thickening. Posterior leaflet mitral valve prolapse. Mild-Moderate (1-2+) anteriorly directed mitral valve insufficiency. Tricuspid Valve Normal tricuspid valve. Mild (1+) tricuspid valve insufficiency. Pulmonary artery systolic pressure is 34 mmHg. Aortic Valve Trisinus/trileaflet aortic valve. Mild (1+) eccentric aortic valve insufficiency. Pulmonic Valve Normal pulmonic valve. Great Vessels Normal aortic root. The pulmonary artery is normal size. Normal inferior vena cava. Pericardium/Pleural No pericardial effusion. MMode/2D Measurements AND Calculations LVIDd: 5.2 cm IVSd: 1.00 cm Ao root diam: 3.4 cm LVIDs: 2.7 cm LVPWd: 1.0 cm RVDd: 3.9 cm FS: 48.6 % LAV(MOD-bp): 60.3 ml LA A4 area: 21.9 cm2 LA dimension(2D): 3.9 cm LAV(MOD-bp) Indexed: 29.8 ml/m2 LAV(MOD-sp2): 55.6 ml LAV(MOD-sp4): 63.6 ml RA A4 area: 14.3 cm2 Doppler Measurements AND Calculations MV E max michael: 126.8 cm/sec Lat Peak E' Michael: 12.7 cm/sec Med Peak E' Michael: 6.4 cm/sec MV A max michael: 70.7 cm/sec E/E' lat: 10.0 E/E' med: 19.8 MV E/A: 1.8 Ao V2 max: 157.7 cm/sec AI max michael: 317.6 cm/sec LV V1 max: 107.5 cm/sec Ao max P.0 mmHg AI max P.3 mmHg LV V1 max P.6 mmHg AI dec slope: 169.6 cm/sec2 AI P1/2t: 548.5 msec PA V2 max: 168.9 cm/sec TR max michael: 274.9 cm/sec TR max P.3 mmHg Interpretation Summary Normal LV size. The estimated ejection fraction is 60 %. Stage 2 diastolic dysfunction. Mild (1+) tricuspid valve insufficiency. Pulmonary artery systolic pressure is 34 mmHg. Compared to prior study, there is no significant change. Ordering Physician: Dax Rodriguez Referring Physician: Hilton Jay M.D. Performed By: Caty Conte RDCS 05/25/18 1440 Date Dax Rodriguez MD CC: Dax Rodriguez MD; Hilton Jay DO Date Dictated: 05/25/18 0853 Date Transcribed: 05/25/18 1440 [employer] Computer Science Teacher: Signed Hilton Jay Start: 04-29-2018 End: 04-30-2018 Chest PA and Lateral Comments: See Note; NOTES: [facility] Imaging Services [address] [place] [address] Chest PA and Lateral MR#: [id number] Acct: [id number] Name: СЕРГЕЙ ALMEIDA Rep #: [id number] : 1945 M 73 From: Jaden Birmingham MD PCP: Hilton Jay DO Status: REG CLI Study: Chest PA and Lateral Date of Exam: 04/29/18 Exam# [id number] Ordering Dr: Charlotte Head ENVIRONMENTAL CONSULTANT-C STUDY: X-RAY CHEST REASON FOR EXAM: Male, 73 years old. Cough. TECHNIQUE: PA and lateral chest. COMPARISON: 01/02/2017. FINDINGS: Median sternotomy. Hiatal hernia. Moderately large. Clear bilateral lungs. No cardiomegaly. Normal mediastinal silhouette, leonel, pleural margins, with no acute osseous or upper abdominal process. Scoliosis. Kyphosis. RAD/Chest PA and Lateral IMPRESSION: No acute cardiopulmonary process. Electronically Signed: Jaden Birmingham MD at 18:29 EST Tel , Service support , CC: Charlotte Head ENVIRONMENTAL CONSULTANT; Hilton Jay DO [employer] Computer Science Teacher: Signed Charlotte Head Work Phone: Start: 11-25-2017 End: 11-25-2017 Cardiology Visit Report Comments: See Note; NOTES: [facility] [address] [place] [address] OFFICE VISIT Date of Service: 11/25/17 MR#: [id number] Acct: [id number] Name: СЕРГЕЙ ALMEIDA Rep #: [id number] : 1945 Provider: Dax Rodriguez MD Age/Sex: 72/M Location: [facility] Status: Signed HPI HPI Chief Complaint: Follow up visit Details: СЕРГЕЙ ALMEIDA, is a 72 M who presents to the office today for a follow-up visit. He is a gentleman with a history of coronary artery disease status post carotid bypass surgery with a left internal mammary artery to left anterior descending artery saphenous vein graft to diagonal branch and obtuse marginal branch. He also has a history of mitral valve prolapse as well as mitral regurgitation. You remember he underwent a cardiac catheterization in February of this year and it demonstrated patency of his left internal mammary artery to the left anterior descending artery as well as the saphenous vein graft to diagonal branch. He successfully underwent robotic prostate surgery without any problems. He complains of occasional diaphoretic episodes which do not appear to be very well explained. He has not had any neck arm or jaw discomfort suggest angina no dizziness no diaphoresis no near syncope or syncope he has been compliant with his medications. His physical exam today demonstrates clear lung doll regular rate and rhythm a soft 2/6 systolic murmur noted at the apex radiating to the axilla. Intake Vital Signs11/25/17 Height 5 ft 11 in 11/25/17 Weight: 181 lb 11/25/17 Body Mass Index (BMI) 25.2 11/25/17 Blood Pressure 122/70 H 11/25/17 Blood Pressure Location Lt brachial Intake Visit Reasons: 6 M FU Bilingual Office Assistant Required: No Accompanied by: none Is patient in pain?: No Allergies bee venom protein (honey bee) Allergy (Unknown, Verified 11/25/17 10:43) Unknown Medications Aspirin [Aspirin, Baby] 81 mg PO DAILY@0800 01/14/14 [History Confirmed 11/25/17] Cholecalciferol (VIT D3) [Vitamin D3] 1,000 unit PO DAILY 01/14/14 [History Confirmed 11/25/17] Magnesium 500 mg PO DAILY 01/14/14 [History Confirmed 11/25/17] Multivitamins,Therapeutic [Multivitamin] 1 tab PO DAILY 01/14/14 [History Confirmed 11/25/17] Latanoprost 0.005% [Xalatan Opthalmic] 1 drp EACH EYE QHS 01/03/17 [History Confirmed 11/25/17] Newcastle-3 Fatty Acids/Fish Oil [[place] 3 Fish Oil Softgel] 1 ea PO DAILY 01/03/17 [History Confirmed 11/25/17] Ubidecarenone/Vitamin E Mixed [Fub34-Kjz E 100 mg-10 Unit Sfg] 100 mg PO DAILY 01/03/17 [History Confirmed 11/25/17] Vitamin B Complex 1 ea PO DAILY 01/03/17 [History Confirmed 11/25/17] Hydrochlorothiazide [Hctz] 12.5 mg PO DAILY 02/25/17 [History Confirmed 11/25/17] ascorbic acid (vitamin C) 1,000 mg tablet 1 g PO QDAY tab 04/29/17 [History Confirmed 11/25/17] rosuvastatin 5 mg tablet 5 mg PO QDAY #90 tab 05/05/17 [Rx Confirmed 11/25/17] levothyroxine 100 mcg tablet 100 mcg PO DAILY #90 tab 06/16/17 [Rx Confirmed 11/25/17] metoprolol tartrate 25 mg tablet 12.5 mg PO BID #90 tab 08/11/17 [Rx Confirmed 11/25/17] nitroglycerin 0.4 mg sublingual tablet 0.4 mg SUBLINGUAL Q5M PRN #25 tab 08/11/17 [Rx Confirmed 11/25/17] ramipril 10 mg capsule 10 mg PO BID #180 cap 08/11/17 [Rx Confirmed 11/25/17] [facility] Medical History Hypothyroidism (Chronic) 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) Hyperlipidemia (Chronic) 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) Nonrheumatic mitral (valve) prolapse (Chronic) Prostate cancer (Chronic) Essential hypertension (Chronic) Surgical History History of left heart catheterization (Chronic) Aortocoronary bypass status (Chronic) H/O prostatectomy (Resolved) Family History Father , of Rohini's disease Burleson's disease Mother , Age 60 of [place] CAD (coronary artery disease) Myocardial infarction Brother CAD (coronary artery disease) history of cabg Brother CAD (coronary artery disease) Stented coronary artery Diabetes Sister CAD (coronary artery disease) Myocardial infarction Hypertension Social History Smoking Status: Never smoker alcohol intake: current alcohol intake frequency: other Alcohol type: beer, wine caffeine: Yes Type: coffee Number of servings: 3 ROS Const Const: Negative for fatigue, weakness, night sweats, excessive sweating, frequent falls, headache(s) or daytime sleepiness Eyes Eyes: Negative for loss of peripheral vision, transient loss of vision, blind spots, double vision or blurry vision ENT ENT: Negative for headache(s), dizziness, balance problems, Nosebleed/epistaxis, tongue swelling or lip swelling Cardio Chest Pain: No Palpitations: No Edema: None Muscle aches with walking: None Resp Respiratory: Positive for SOB with activity; negative for SOB at rest, SOB orthopnea\SOB lying down, Cough or paroxysmal nocturnal dyspnea GI GI: Negative nausea, vomiting, heartburn, black,tarry stools or bright, red blood in stools : Negative for hematuria Musc Musc: Negative for balance problems, muscle aches/ myalgia, muscle weakness or joint pain Skin Skin: Negative non-healing lesions, unusual bruising or rash Neuro Neuro: Negative for weakness, frequent falls, headache(s), double vision, dizziness, lightheadedness, orthostatic symptoms, blurry vision or lack of coordination Santino Hematologic/Lymphatic: Negative for easy bruising or easy bleeding Endo Endo: Negative for fatigue, excessive sweating, cold intolerance, heat intolerance, increased thirst/drinking or hair loss Psych Psych: Negative for anxiety or depression Allergy Allergy/Immunology: Negative for throat swelling, Negative for tongue swelling, Negative for hives, Negative for rash, Negative for lip swelling Cardiology Exam Const Appearance: cooperative, healthy appearing, well developed, well groomed and no acute distress Nutritional Appearance: well nourished and average body habitus Orientation: alert, awake and oriented x3 Head Head: normal to inspection, normocephalic and atraumatic Ears: hearing grossly normal bilaterally and external ears normal Nose: external nose normal, nasal mucous membranes and turbinates normal, nares normal, septum normal, no nasal discharge Face and Sinus: face symmetric Mouth: oral mucosae normal, tongue normal, oropharynx normal and moist mucous membranes Teeth and gingiva: dentition normal Throat: posterior oropharynx normal, tonsils normal and uvula midline Eyes General: appearance normal, both eyes and all related structures Eyelids: eyelids normal Conjunctivae: conjunctivae normal Pupils: PERRL, normal by confrontation and accommodation normal EOM: EOM intact bilaterally Neck Neck: normal visual inspection, trachea midline and no JVD JVD: +5 Carotids: normal carotid upstroke and bounding pulses Chest Chest inspection: normal inspection of the chest, symmetric chest movement and normal respiratory effort Auscultation: Bilateral: Clear to Auscultation Cardio Palpation: normal PMI Rate: regular rate Rhythm: regular rhythm Heart sounds: S1 normal and S2 normal Murmur: Grade 2/6, soft, mid systolic, holosystolic and apex GI GI: normal to inspection, soft, no hepatosplenomegaly and bowel sounds present Neuro General: alert, awake, oriented x3, no focal sensory deficit, gait normal and moves all extremities Skin Skin: no rashes or lesions noted Extremities Pulses: Normal: Right Femoral Pulse, Left Femoral Pulse, Right Dorsalis Pedis Pulse, Left Dorsalis Pedis Pulse, Right Posterior Tibial Pulse, Left Posterior Tibial Pulse, Right Radial Pulse, Left Radial Pulse Lower Extremity Edema: None: Bilateral Musculoskel Musculoskeletal: No joint tenderness Psych Psychological: normal affect Assessment AND Plan 1. Hyperlipidemia E78.5 Plan He does have a history of hyperlipidemia. His most recent lipid profile demonstrated total cholesterol of 126, LDL of 68 and HDL of 38. He will remain on his current dose of statin with no changes. 2. Aortocoronary bypass status Z95.1 CABG with saphenous vein grafts Diag 1 CFX, SWANSON graft to LAD, 1994; Plan He does have a history of coronary bypass surgery. His recent cardiac catheterization earlier this year demonstrated 2 out of 3 patent bypass grafts. This was as noted above. He will continue with secondary risk factor modification. 3. Nonrheumatic mitral valve stenosis with insufficiency I34.2 Plan He does have a history of mitral valve regurgitation. You do remember that he underwent an echocardiogram which demonstrated moderate prolapse of the middle scallop with 2+ mitral regurgitation his pulmonary systolic pressure was estimated to be 34 mmHg. He has complained of some shortness of breath with exertion and my recommendation at this time will be to repeat his echocardiogram prior to his next visit to see how he is doing. He will continue with antibiotic prophylaxis. Should he feel that he is getting more short of breath than usual he should not hesitate to let us know. 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) Coding Level of Care Code Off vis,est,level 4 Diagnoses Hyperlipidemia E78.5 Aortocoronary bypass status Z95.1 Nonrheumatic mitral valve stenosis with insufficiency I34.2 Coding Level of Care Code Off vis,est,level 4 Diagnoses Hyperlipidemia E78.5 Aortocoronary bypass status Z95.1 Nonrheumatic mitral valve stenosis with insufficiency I34.2 11/25/17 1101 <Electronically signed by Dax Rodriguez MD> Date Dax Rodriguez MD Cosigner Signature: Date (if applicable) CC: Hilton Ferro Start: 05-01-2017 End: 05-01-2017 Cardiology Visit Report Comments: See Note; NOTES: [facility] [address] [place] [address] OFFICE VISIT Date of Service: 05/01/17 MR#: [id number] Acct: [id number] Name: СЕРГЕЙ ALMEIDA Rep #: [id number] : 1945 Provider: Dax Rodriguez MD Age/Sex: 72/M Location: [facility] [place] Status: Signed HPI [facility] Chief Complaint: Follow-up visits. Details: СЕРГЕЙ ALMEIDA, is a 72 M who presents to the office today for a follow-up visit. He is a gentleman with a history of coronary artery disease status post carotid bypass surgery with a left internal mammary artery to left anterior descending artery saphenous vein graft to diagonal branch and obtuse marginal branch. He also has a history of mitral valve prolapse as well as mitral regurgitation. You remember he underwent a cardiac catheterization in February of this year and it demonstrated patency of his left internal mammary artery to the left anterior descending artery as well as the saphenous vein graft to diagonal branch. He successfully underwent robotic prostate surgery without any problems. He has not had any neck arm or jaw discomfort suggest angina no dizziness no diaphoresis no near syncope or syncope he has been compliant with his medications. His physical exam today demonstrates clear lung doll regular rate and rhythm a soft 2/6 systolic murmur noted at the apex radiating to the axilla. Intake Vital Signs05/01/17 Height 5 ft 11 in 05/01/17 Weight: 184 lb 05/01/17 Body Mass Index (BMI) 25.7 05/01/17 Blood Pressure 110/56 Intake Visit Reasons: 4 M FU Accompanied by: Allergies bee venom protein (honey bee) Allergy (Unknown, Verified 05/01/17 11:04) Unknown Medications Aspirin [Aspirin, Baby] 81 mg PO DAILY@0800 01/14/14 [History Confirmed 04/29/17] Cholecalciferol (VIT D3) [Vitamin D3] 1,000 unit PO DAILY 01/14/14 [History Confirmed 04/29/17] Flavoring Agent [Cinnamon] 500 mg PO DAILY 01/14/14 [History Confirmed 02/25/17] Levothyroxine [Synthroid] 100 mcg PO DAILY 01/14/14 [History Confirmed 04/29/17] Magnesium 500 mg PO DAILY 01/14/14 [History Confirmed 04/29/17] Metoprolol Tartrate [Lopressor (beta rigo)] 12.5 mg PO BID 01/14/14 [History Confirmed 04/29/17] Multivitamins,Therapeutic [Multivitamin] 1 tab PO DAILY 01/14/14 [History Confirmed 04/29/17] Ramipril [Altace] 10 mg PO BID 01/14/14 [History Confirmed 04/29/17] Latanoprost 0.005% [Xalatan Opthalmic] 1 drp EACH EYE QHS 01/03/17 [History Confirmed 04/29/17] [place]-3 Fatty Acids/Fish Oil [[place] 3 Fish Oil Softgel] 1 ea PO DAILY 01/03/17 [History Confirmed 04/29/17] Ubidecarenone/Vitamin E Mixed [How97-Vit E 100 mg-10 Unit Sfg] 100 mg PO DAILY 01/03/17 [History Confirmed 02/25/17] Vitamin B Complex 1 ea PO DAILY 01/03/17 [History Confirmed 02/25/17] Hydrochlorothiazide [Hctz] 12.5 mg PO DAILY 02/25/17 [History Confirmed 04/29/17] Ciprofloxacin [Cipro] 500 mg PO BID #20 tab 03/07/17 [Rx] Docusate Sodium [Colace] 100 mg PO BID #20 cap 03/07/17 [Rx] Hydrocodone/Acetaminophen [[place] 5-325 Tablet] 1 ea PO Q4H PRN PRN 5 Days #14 tab 03/07/17 [Rx] ascorbic acid (vitamin C) 1,000 mg tablet 1 g PO QDAY tab 04/29/17 [History Confirmed 04/29/17] clopidogrel 75 mg tablet 150 mg PO QDAY 04/29/17 [History Confirmed 04/29/17] nitroglycerin 0.4 mg sublingual tablet 0.4 mg SUBLINGUAL Q5M PRN 04/29/17 [History Confirmed 04/29/17] rosuvastatin 10 mg tablet 5 mg PO QHS #90 tab 05/01/17 [Rx Confirmed 05/01/17] Ejection fraction %: 60 to 64 PFSH Medical History 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) Hyperlipidemia (Chronic) 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) Hypertension (Chronic) Old myocardial infarction (Chronic) Nonrheumatic mitral (valve) prolapse (Chronic) Prostate cancer (Chronic) Surgical History H/O prostatectomy (Chronic) History of left heart catheterization (Chronic) Aortocoronary bypass status (Chronic) Family History Father , of Burleson's disease Rohini's disease Mother , Age 60 of [place] CAD (coronary artery disease) Myocardial infarction Brother CAD (coronary artery disease) history of cabg Brother CAD (coronary artery disease) Stented coronary artery Diabetes Sister CAD (coronary artery disease) Myocardial infarction Hypertension Social History Smoking Status: Never smoker ROS Const Const: Positive for other (Had prostate removed in Feb for CA); negative for fatigue, weakness, body ache, fever(s), headache(s), chills, frequent falls, night sweats, daytime sleepiness, difficulty sleeping, excessive sweating, weight gain, weight loss, increased appetite, poor appetite or anorexia Eyes Eyes: Negative for blind spots, loss of peripheral vision, transient loss of vision, blurry vision, change in vision, double vision, floaters, tunnel vision or other ENT ENT: Negative for headache(s), balance problems, tongue swelling or lip swelling Cardio Chest Pain: No Resp Respiratory: Negative for SOB with activity, SOB at rest, SOB orthopnea\SOB lying down, Coughing up blood/hemoptysis, chest congestion, pain on inspiration, snoring, stridor, wheezing, crackles, paroxysmal nocturnal dyspnea or other GI GI: Negative nausea, vomiting, heartburn, constipation, belching, bloating, cramping, vomiting blood/hematemesis, bright, red blood in stools, black,tarry stools, loose stools, Difficulty Swallowing or other : Negative for hematuria (some urinary issues post prostatectomy), frequent nighttime urination/ nocturia, erectile dysfunction or abnormal vaginal bleeding Musc Musc: Negative for muscle aches/ myalgia, muscle weakness, joint pain or balance problems Skin Skin: Negative redness, non-healing lesions, rash, unusual bruising, skin ulcer, wounds, jaundice or other Neuro Neuro: Negative for weakness, headache(s), frequent falls, blurry vision or double vision Santino Hematologic/Lymphatic: Negative for easy bleeding, easy bruising, enlarged lymph nodes or other Endo Endo: Negative for fatigue or excessive sweating Psych Psych: Negative for anxiety, depression, thoughts of harming anyone, thoughts of harming yourself, visual hallucinations, panic attacks or audible hallucinations Allergy Allergy/Immunology: Negative for rash, Negative for throat swelling, Negative for tongue swelling, Negative for hives, Negative for lip swelling Cardiology Exam Const Appearance: cooperative, healthy appearing, well developed, well groomed and no acute distress Nutritional Appearance: well nourished and average body habitus Orientation: alert, awake and oriented x3 Head Head: normal to inspection, normocephalic and atraumatic Ears: hearing grossly normal bilaterally and external ears normal Nose: external nose normal, nasal mucous membranes and turbinates normal, nares normal, septum normal, no nasal discharge Face and Sinus: face symmetric Mouth: oral mucosae normal, tongue normal, oropharynx normal and moist mucous membranes Teeth and gingiva: dentition normal Throat: posterior oropharynx normal, tonsils normal and uvula midline Eyes General: appearance normal, both eyes and all related structures Eyelids: eyelids normal Conjunctivae: conjunctivae normal Pupils: PERRL, normal by confrontation and accommodation normal EOM: EOM intact bilaterally Neck Neck: normal visual inspection, trachea midline and no JVD JVD: +5 Carotids: normal carotid upstroke and bounding pulses Chest Chest inspection: normal inspection of the chest, symmetric chest movement and normal respiratory effort Auscultation: Bilateral: Clear to Auscultation Cardio Palpation: normal PMI Rate: regular rate Heart sounds: S1 normal and S2 normal Murmur: Grade 2/6, holosystolic and apex GI GI: normal to inspection, soft, no hepatosplenomegaly and bowel sounds present Neuro General: alert, awake, oriented x3, no focal sensory deficit, gait normal and moves all extremities Skin Skin: no rashes or lesions noted Extremities Pulses: Normal: Right Femoral Pulse, Left Femoral Pulse, Right Dorsalis Pedis Pulse, Left Dorsalis Pedis Pulse, Right Posterior Tibial Pulse, Left Posterior Tibial Pulse, Right Radial Pulse, Left Radial Pulse Lower Extremity Edema: None: Bilateral Musculoskel Musculoskeletal: No joint tenderness Psych Psychological: normal affect Assessment AND Plan 1. Atherosclerosis of [place] coronary artery of 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 angina pectoris I25.10 CABG X 3 12/15/1994:SWANSON to LAD, SVG to Dx and SVG to Cx Plan He has 2 recently documented patent grafts out of 3. He does have preserved left ventricular ejection fraction and my recommendation is to continue the same medications without any changes. He has not had any angina and as you know he did perform quite creditability on the stress test. 2. Essential hypertension I10 Plan His blood pressure appears to be under good control on the current medical therapy and I would not suggest that we make any changes. 3. Nonrheumatic mitral valve stenosis with insufficiency I34.2 Plan He does have evidence of mitral regurgitation which was evaluated on a transesophageal echocardiogram. You remember after this it was determined that he had moderate mitral valve prolapse involving the middle scallop with 2+ mitral regurgitation. His pulmonary artery systolic pressure was estimated to be 34 mmHg. At this time we will continue with antibiotic prophylaxis and watchful waiting. His left ventricular internal dimensions were noted to be normal and I will like to see him again in approximately 6 months. At that time we may consider repeating his echocardiogram. 4. Pure hypercholesterolemia E78.00; E78.0 Plan He remains on a low intensity statin at this time which will be continued. His most recent lipid profile demonstrated total cholesterol 141, LDL of 71 and HDL of 37. Thank you for allowing me to participate in the care of your patient. 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 transplanted heart: [place] heart Essential hypertension I10 Hypertension type: essential hypertension Nonrheumatic mitral valve stenosis with insufficiency I34.2 Pure hypercholesterolemia E78.00; E78.0 Hyperlipidemia type: pure hypercholesterolemia Coding Level of Care Code Off vis,est,level 4 Diagnoses Atherosclerosis of [place] coronary artery of 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 angina pectoris I25.10 [place] vs. transplanted heart: [place] heart Essential hypertension I10 Hypertension type: essential hypertension Nonrheumatic mitral valve stenosis with insufficiency I34.2 Pure hypercholesterolemia E78.00; E78.0 Hyperlipidemia type: pure hypercholesterolemia 05/01/17 1124 <Electronically signed by Dax Rodriguez MD> Date Dax Rodriguez MD Cosigner Signature: Date (if applicable) CC: Hilton Ferro Start: 01-21-2017 End: 01-21-2017 Abdomen/Pelvis WITH Contrast Comments: See Note; NOTES: [facility] Imaging Services [address] [address] Abdomen/Pelvis WITH Contrast MR#: [id number] Acct: [id number] Name: СЕРГЕЙ ALMEIDA Rep #: [id number] : 1945 M 71 From: Bud Marley MD PCP: Hilton Jay DO Status: REG CLI Study: Abdomen/Pelvis WITH Contrast Date of Exam: 01/21/17 Exam# [id number] Ordering Dr: Brenden Paulson MD STUDY: CT ABDOMEN AND PELVIS WITH CONTRAST REASON FOR EXAM: Male, 71 years old. Prostate cancer RADIATION DOSAGE (If Supplied By Facility): CTDIvol = ( 9.58 ) mGy, DLP = ( 795.33 ) mGycm TECHNIQUE: Transaxial images were obtained from the dome of the diaphragm to the symphysis pubis without oral contrast. 75 ml of Isovue 370 contrast was administered. Sagittal and coronal images were reconstructed. Individualized dose optimization techniques were used for this CT. COMPARISON: None. FINDINGS: The lung bases are clear. The visualized portions of the heart and pericardium are within normal limits. There is a moderate-sized hiatal hernia noted. There are no calcified gallstones present. The liver, spleen, pancreas and adrenal glands are within normal limits. There are bilateral parapelvic renal cysts. There is no hydronephrosis. There are no focal renal lesions. There is no bowel obstruction or inflammation. The appendix is normal. There is no abdominal or pelvic free air, free fluid or lymphadenopathy. The aorta is normal in caliber. The prostate is enlarged, measuring 5.2 x 3.8 cm. There are no destructive osseous lesions. CT/Abdomen/Pelvis WITH Contrast IMPRESSION: Mildly enlarged prostate. No evidence of metastatic disease in the abdomen or pelvis. Moderate hiatal hernia. Electronically Signed: Bud Marley, at 16:34 EST Tel , Service support , CC: Brenden Paulson MD; Hilton Jay DO [employer] Teacher: Signed Hilton [place] Start: 01-14-2017 End: 01-15-2017 Bone Scan Whole Body Comments: See Note; NOTES: [facility] Imaging Services [address] [place] [address] Bone Scan Whole Body MR#: [id number] Acct: [id number] Name: СЕРГЕЙ ALMEIDA Rep #: [id number] : 1945 M 71 From: Jaden Kinsey DO PCP: Hilton Jay DO Status: REG CLI Study: Bone Scan Whole Body Date of Exam: 01/14/17 Exam# [id number] Ordering Dr: Brenden Paulson MD CLINICAL: 71-year-old male with reported new diagnosis of prostate carcinoma. WHOLE BODY 99m Tc MDP RADIONUCLIDE BONE SCINTIGRAPHY COMPARISON: None available FINDINGS: Following the intravenous administration of 26.0 mCi of 99m Tc MDP, whole body bone images reveal: 1. Increased radiopharmaceutical concentration is identified in the right anterior first rib at the costochondral junction. 2. Enhanced tracer concentration is demonstrated in the acromioclavicular and sternoclavicular compartments of both shoulders, the eighth and 11th thoracic vertebra posteriorly on the left, second-third lumbar vertebra posteriorly on the right, fifth lumbar vertebra posteriorly on the left, the left elbow and wrist articulations, bilateral knees, the right-left midfoot. 3. The remaining skeletal structures are scintigraphically unremarkable with normal-appearing renal images and urinary bladder activity identified. NM/Bone Scan Whole Body IMPRESSION: 1. The increase in radiopharmaceutical concentration identified in the right anterior first rib at the costochondral junction is consistent with trauma-fracture. Plain film radiography correlation may be of benefit for further evaluation. 2. Degenerative arthritis appears expressed in the bilateral shoulders, thoracic and lumbar spine, left elbow and wrist, right and left knees, the midfoot bilaterally. 3. There is no definitive typical scintigraphic evidence of diffuse axial skeletal metastatic disease on the current examination. Electronically Signed: Jaden Kinsey DO at 11:45 EST Tel , Service support , CC: Brneden Paulson MD; Hilton Jay DO [employer] Teacher: Signed Hilton Jay Start: 01-02-2017 End: 01-02-2017 Chest PA and Lateral Comments: See Note; NOTES: [facility] Imaging Services [address] [place] [address] Chest PA and Lateral MR#: [id number] Acct: [id number] Name: СЕРГЕЙ ALMEIDA Rep #: [id number] : 1945 M 71 From: Bubba Chilel MD PCP: Hilton Jay DO Status: REG CLI Study: Chest PA and Lateral Date of Exam: 01/02/17 Exam# [id number] Ordering Dr: Dax Rodriguez MD STUDY: X-RAY CHEST REASON FOR EXAM: Male, 71 years old. Preop cardiac catheter TECHNIQUE: PA and lateral views of the chest. COMPARISON: None. FINDINGS: The lungs are clear and expanded. There is no demonstrated pleural abnormality. The heart size is within normal limits. Status post sternotomy changes are present. Normal mediastinum and leonel. Normal visualized pulmonary arteries. There is uncoiling of the thoracic aorta. There is demineralization of the osseous structures. There is a mild thoracic dextroscoliosis. Normal visualized ribs, clavicles, and shoulders. There is no demonstrated abnormality of the visualized soft tissue structures of the upper abdomen. RAD/Chest PA and Lateral IMPRESSION: Generalized osteopenia. Status post sternotomy. Uncoiling of the thoracic aorta. No acute cardiopulmonary disease process is seen. Electronically Signed: Bubba Chilel MD at 23:36 EST , Service support , CC: Dax Rodriguez MD; Hilton Jay DO [employer] Teacher: Signed Hilton Jay Start: 11-25-2016 End: 11-25-2016 Stress Report Comments: See Note; NOTES: [facility] Cardiovascular Services [address] [address] MR#: [id number] Acct: [id number] Name: СЕРГЕЙ ALMEIDA Rep #: [id number] : 1945 71 From: Dax Rodriguez MD Primary Care: Hilton Jay DO Status: REG CLI Ordering Dr: Sex: M C Stress Test Report - Stress Test Report Stress Test Report: Size myocardial perfusion stress test 71-year-old man with a history of coronary artery disease status post coronary bypass surgery in 1995. Educations metoprolol ramipril clopidogrel Crestor aspirin. Stress protocol Resting EKG demonstrates sinus bradycardia with a rate of 57 bpm. Resting blood pressure was 160/90 mmHg. The patient exercised according to the regular Aftab protocol for total duration of 8 minutes completing 2 minutes into stage III of the Aftab protocol. The maximum heart rate attained was 130 bpm which was 88% of the maximum predicted heart rate. The maximum workload attained was 10.1 metabolic equivalents. The patient maintained sinus rhythm throughout the recording. Occasional premature ventricular complexes were noted. During exercise there was upsloping ST changes only noted not suggestive of ischemia. No clinical angina was present. The peak blood pressure was 196/82. Myocardial perfusion protocol: 11.7 mCi of technetium 99m sestamibi was injected at rest. The patient then exercised according to the regular Aftab protocol for total duration of 8 minutes attaining 88% of the maximum predicted heart rate. At peak exercise 34.1 mCi of technetium 99m sestamibi was injected. Stress images were obtained. Stress and resting images were reconstructed and compared in the short axis vertical long and horizontal long axis. Gated images were also obtained. Perfusion SPECT analysis Review of the images demonstrate normal uptake of tracer noted in the septum anterior wall and lateral wall. On the stress images there is a defect and reduced perfusion noted in the inferior and inferolateral wall and on the resting images a similar defect persists. The above is suggestive of a previous inferior inferolateral infarct. No obvious ischemia is noted Gated SPECT analysis Gated ejection fraction is noted to be 61%. Conclusion: Exercise myocardial perfusion stress test with no evidence of ischemia noted at a moderate workload Good Exercise capacity No angina noted preserved ejection fraction 11/25/1658 <Electronically signed by Dax Rodriguez MD> Date Dax Rodriguez MD CC: Dax Rodriguez MD; Hilton [place] DO Date Dictated: 11/25/16951 Date Transcribed: 11/25/16951 [employer] Teacher: [place] Signed Hilton Jay Start: 11-18-2016 End: 11-18-2016 Echo Transesophageal (DARCY) Comments: See Note; NOTES: [facility] Cardiovascular Services [address] [place] [address] Echo Transesophageal (DARCY) 11/18/16 1034 MR#: [id number] Acct: [id number] Name: СЕРГЕЙ ALMEIDA Regulo Rep #: [id number] : 1945 71 From: Dax Rodriguez MD Attending Dr: Aarti Vicente Status: REG CLI Ordering Dr: Aarti Vicente Date: 11/18/16 Location: [facility] Sex: M C Admitted: Reason For Study: MVP- nonrheumatic Medication DARCY probe passed with minimal difficulty. Cetacaine Topical [place] given X3 orally. Versed 1 mg given slow IVP. Fentanyl 50 mcg given slow IVP. Performed a rapid injection of agitated mix of 9 cc saline and 1cc air to assess for atrial septal defect. Left Ventricle Normal LV size. Left ventricular systolic function is normal. The estimated ejection fraction is 60 %. No regional wall motion abnormalities noted. Right Ventricle Normal RV size. Normal systolic function. Atria Normal atrial septum. Bubble contrast study negative for right to left interatrial shunt. Intact atrial septum. Normal left atrium. No thrombus is detected in the left atrial appendage. Normal right atrium. Mitral Valve Posterior leaflet diffuse mitral valve thickening. Systolic anterior motion of the mitral valve. Moderate mitral valve prolapse. Involving the middle scallop primarily. Moderate (2+) eccentric mitral valve insufficiency. Tricuspid Valve Normal tricuspid valve. Mild (1+) tricuspid valve insufficiency. Aortic Valve Normal aortic valve. Trisinus/trileaflet aortic valve. Pulmonic Valve Normal pulmonic valve. Pericardium No pericardial effusion. Interpretation Summary Normal LV size. Left ventricular systolic function is normal. The estimated ejection fraction is 60 %. Posterior leaflet diffuse mitral valve thickening. Moderate mitral valve prolapse. Involving the middle scallop primarily Moderate (2+) eccentric mitral valve insufficiency. Ordering Physician: Aarti Vicente Referring Physician: Hilton Jay Performed By: Giana Devlin, TOD, RVT 11/18/16 1534 Date Dax Rodriguez MD CC: Hilton Jay DO; Aarti Vicente Date Dictated: 11/18/16 1034 Date Transcribed: 11/18/16 1534 [employer] Teacher: Signed Hilton Jay Start: 10-29-2016 End: 10-29-2016 Echocardiogram Complete Comments: See Note; NOTES: [facility] Cardiovascular Services [address] [place] [address] Echo Complete 10/24/16 1307 MR#: [id number] Acct: [id number] Name: СЕРГЕЙ ALMEIDA Rep #: [id number] : 1945 71 From: Alex Dawn MD Attending Dr: Aarti Vicente Status: REG CLI Ordering Dr: Aarti Vicente Date: 10/24/16 Location: [facility] Sex: M C Admitted: Reason For Study: ashd Procedure This was a 2D Doppler, Color Flow transthoracic echocardiogram. Exam performed in department. Left Ventricle Normal size and thickness. The estimated ejection fraction is 60 %. No regional wall motion abnormalities noted. Right Ventricle Moderately dilated right ventricle. Normal systolic function. Atria The left atrium is severely enlarged. The right atrium is moderately enlarged. Bubble contrast study negative for right to left interatrial shunt. Mitral Valve Moderate mitral valve prolapse, posterior leaflet. Possible spherical fibroelastoma vs MV focal thickening noted on middle scallop of posterior mitral leaflet. Recommend clinical correlation or DARCY to better evaluate. Moderately severe (3+) anteriorly directed mitral valve insufficiency. Tricuspid Valve Normal tricuspid valve. Mild to moderate (1-2+) tricuspid valve insufficiency. Right ventricular systolic pressure estimated to be 34 mmHg. Aortic Valve Trisinus/trileaflet aortic valve. Mild diffuse aortic valve thickening. Trivial aortic valve insufficiency. Pulmonic Valve Normal pulmonic valve. Mild (1+) pulmonic valve insufficiency. Great Vessels Normal aortic root. Normal arch. Normal inferior vena cava. Inferior vena cava collapse with sniff. Pericardium/Pleural No pericardial effusion. Medication 22 gauge I.V. with prn adaptor inserted into right arm. Performed a rapid injection of agitated mix of 9 cc saline and 1cc air to assess for atrial septal defect. MMode/2D Measurements AND Calculations LVIDd: 4.9 cm IVSd: 1.0 cm LVOT diam: 2.0 cm LVIDs: 3.1 cm LVPWd: 0.94 cm LVOT area: 3.2 cm2 RVDd: 3.9 cm FS: 38.3 % Ao root diam: 3.2 cm LAV(MOD-bp): 53.7 ml EDV(MOD-sp4): 107.3 ml LAV(MOD-bp) Indexed: 26.9 ml/m2 ESV(MOD-sp4): 20.0 ml LAV(MOD-sp2): 42.2 ml EF(MOD-sp4): 81.3 % LAV(MOD-sp4): 62.1 ml EDV(MOD-sp2): 86.7 ml SV(MOD-sp4): 87.3 ml SV(MOD-sp2): 53.3 ml EF(MOD-sp2): 61.4 % LA A4 area: 21.5 cm2 RA A4 area: 19.1 cm2 Doppler Measurements AND Calculations MV E max michael: 78.1 cm/sec Lat Peak E' Michael: 10.5 cm/sec Med Peak E' Michael: 7.6 cm/sec MV A max michael: 75.9 cm/sec E/E' lat: 7.4 E/E' med: 10.3 MV E/A: 1.0 MV P1/2t max michael: 78.1 cm/sec Ao V2 max: 153.6 cm/sec LV V1 max: 106.6 cm/sec MV P1/2t: 96.2 msec Ao max P.5 mmHg LV V1 max P.5 mmHg MV dec slope: 237.8 cm/sec2 RAFY(V,D): 2.3 cm2 MVA(P1/2t): 2.3 cm2 PA V2 max: 142.5 cm/sec PI dec slope: 137.6 cm/sec2 TR max michael: 267.3 cm/sec TR max P.6 mmHg Interpretation Summary The estimated ejection fraction is 60 %. Moderately dilated right ventricle. The left atrium is severely enlarged. Bubble contrast study negative for right to left interatrial shunt. Moderate mitral valve prolapse, posterior leaflet Moderately severe (3+) anteriorly directed mitral valve insufficiency. Mild to moderate (1-2+) tricuspid valve insufficiency. Right ventricular systolic pressure estimated to be 34 mmHg. Possible spherical fibroelastoma vs MV focal thickening noted on middle scallop of posterior mitral leaflet. Recommend clinical correlation or DARCY to better evaluate. Compared to echo report dated 10/18/2014, moderate MV prolapse again noted, but MR appears to have worsened. LV function and RVSP has remained about the same. Ordering Physician: Aarti Vicente/Dax Rodriguez Referring Physician: Hilton Jay M.D. Performed By: Jacqueline Siddiqui, TOD, RVT 10/29/16 1016 Date Alex Dawn MD CC: Hilton Jay DO; Aarti Vicente Date Dictated: 10/24/16 1307 Date Transcribed: 10/29/16 1016 [employer] Computer [employer] Teacher: Signed Hilton Jay Start: 10-21-2014 End: 10-21-2014 Echocardiogram Complete Comments: See Note; NOTES: [facility] Cardiovascular Services [address] [address] Echo Complete 10/21/14 1051 MR#: [id number] Acct: [id number] Name: СЕРГЕЙ ALMEIDA Rep #: [id number] : 1945 69 From: Dax Rodriguez MD Attending Dr: Aarti Matos Status: REG CLI Ordering Dr: Aarti Matos Date: 10/21/14 Location: [facility] Sex: M C Admitted: Procedure This was a 2D Doppler, Color Flow transthoracic echocardiogram. Exam performed in department. Left Ventricle Normal LV size. Mild concentric left ventricular hypertrophy. Left ventricular systolic function is normal. The estimated ejection fraction is 60 %. No regional wall motion abnormalities noted. Right Ventricle Normal RV size. Normal systolic function. Atria The left atrium is mildly enlarged. Normal right atrium. Hypermobile atrial septum. Mitral Valve Chordal systolic anterior motion of the mitral valve. Moderate mitral valve prolapse. Mild- Moderate (1-2+) eccentric mitral valve insufficiency. Tricuspid Valve Normal tricuspid valve. Mild (1+) tricuspid valve insufficiency. Pulmonary artery systolic pressure is 30 mmHg. Aortic Valve Trisinus/trileaflet aortic valve. Mild focal aortic valve calcification. Pulmonic Valve Normal pulmonic valve. Great Vessels Normal aortic root. The pulmonary artery is normal size. Normal inferior vena cava. Pericardium/Pleural No pericardial effusion. MMode/2D Measurements AND Calculations LVIDd: 4.9 cm IVSd: 1.4 cm Ao root diam: 2.5 cm LAV(MOD-bp): 61.8 ml LVIDs: 2.0 cm LVPWd: 1.2 cm Ao root area: 4.9 cm2 LAV(MOD-bp) Indexed: 31.0 ml /m2 RVDd: 3.1 cm FS: 58.6 % LA dimension: 4.5 cm LAV(MOD-sp2): 44.1 ml LAV(MOD-sp4): 70.9 ml LA A4 area: 23.2 cm2 RA A4 area: 19.8 cm2 Doppler Measurements AND Calculations MV E max michael: Lat Peak E' Michael: Med Peak E' Michael: Ao V2 max: 86.2 cm/sec 11.6 cm/sec 6.7 cm/sec 148.4 cm/sec MV A max michael: Ao max P.8 mmHg 80.7 cm/sec MV E/A: 1.1 LV V1 max: 115.1 cm/sec PA V2 max: 165.8 cm/sec TR max michael: 247.0 cm/sec E/E' lat: 7.4 LV V1 max P.3 mmHg PA max P.0 mmHg TR max P.4 mmHg E/E' med: 12.8 Interpretation Summary Normal LV size. Mild concentric left ventricular hypertrophy. Left ventricular systolic function is normal. The estimated ejection fraction is 60 %. Moderate mitral valve prolapse. Mild-Moderate (1-2+) eccentric mitral valve insufficiency. Mild (1+) tricuspid valve insufficiency. Chordal systolic anterior motion of the mitral valve. Hypermobile atrial septum. Compared to prior study, there is no significant change. Ordering Physician: Aarti Matos/Dax Rodriguez Referring Physician: Kateryna Doyle D.O. Performed By: Lavinia Sevilla RVT 10/21/14 1554 Date Dax Rodriguez MD CC: Kateryna Doyle DO; Aarti Matos Date Dictated: 10/21/14 1051 Date Transcribed: 10/21/14 1554 [employer] Computer [employer] Teacher: Signed Hilton Jay Start: 01-22-2014 End: 01-22-2014 Operative Report Comments: See Note; NOTES: [facility] Medical Records Department [address] [place] [id number] Operative Report MR#: [id number] Acct: [id number] Name: СЕРГЕЙ ALMEIDA Regulo Rep #: [id number] : 1945 68 From: Kuldip Mcduffie MD PCP: Kateryna Doyle DO Status: [facility] DATE OF SERVICE: 01/21/2014 DATE OF SERVICE: January 21, 2014 PREOPERATIVE DIAGNOSIS: Symptomatic right inguinal hernia. POSTOPERATIVE DIAGNOSIS: Symptomatic indirect right inguinal hernia. PROCEDURE PERFORMED: Genaro right inguinal herniorrhaphy. SURGEON: Kuldip Mcduffie M.D. ANESTHESIA: [facility]. INDICATIONS: This is a 68-year-old gentleman who was taken to the operating room and underwent monitored anesthesia care, local anesthetic. DESCRIPTION OF PROCEDURE: Timeout and informed consent had been obtained. The right groin was sterilely prepped and draped. Lidocaine 1% mixed 50/50 with 0.5% Marcaine was used as a local anesthetic. Throughout the procedure, a total of 15 mL was used. Local was instilled. A transverse incision was made in the right groin. Hemostasis was obtained with electrocautery and 3-0 plain ties. The external oblique was identified and incised along the fascia. The nerve was carefully identified and protected. A 1/4-inch Sal drain was placed around the cord structures. Sharp and blunt dissection was used to identify the hernia sac. It was dissected free. It was then high ligated with interrupted 3-0 Vicryl and the sac was submitted as specimen. Dissection was performed over the direct space completely gaining access overlying the pubic tubercle. There was some slight weakness of the direct space as well. A 3-0 Ethibond was then starting at the pubic tubercle and used to imbricate the transversalis fascia to the internal ring completely supporting the direct floor. Then, an apron cover of Marlex mesh with a keyhole was placed around the internal ring and it was secured to itself laterally with interrupted 3-0 Ethibond. The tails were trimmed and tucked beneath the external oblique and the mesh was carefully secured to the pubic tubercle, shelving edge of Poupart's with multiple interrupted 3-0 Ethibond sutures. Excellent positioning and lie was achieved. The external oblique was then approximated with running 3-0 Vicryl. Great care was taken to avoid the ilioinguinal nerve. Jaylen's fascia was approximated with interrupted 3-0 Vicryl. The skin edges were approximated with running subcuticular 4-0 Monocryl. Proxi-Strip, Telfa and OpSite dressings were applied. Counts were correct. Blood loss was minimal. He tolerated the procedure well and was taken to recovery in stable condition with absolutely no apparent complication. Kuldip Mcduffie MD T: NTS JOB: [id number] 01/22/14 0626 <Electronically signed by Kuldip Mcduffie MD> Date Kuldip Mcduffie MD CC: Kateryna Doyle DO; Kuldip Mcduffie MD Date Dictated: 01/21/14 133 Date Transcribed: 01/21/141330 [employer] Computer [employer] Teacher: Signed Hilton Jay Start: 01-21-2014 End: 01-21-2014 Discharge Instruction Comments: See Note; NOTES: [facility] Medical Records Department [address] [address] Instructions for Home/Discharge Instructions MR#: [id number] Acct: [id number] Name: СЕРГЕЙ ALMEIDA Rep #: [id number] : 1945 68 From: Kuldip Mcduffie MD PCP: Kateryna Doyle DO Status: REG [facility] Discharge Diet: Light diet - advance as tolerated Discharge Activity: Return to Normal Activity, May Drive - when you are no longer taking narcotic pain medications., May Shower - with the bandage in place 1-2 days after surgery. Lifting Restrictions: 20 pounds for 8 weeks. Additional Activity Instructions:: Climbing stairs is fine, walking is encouraged. Sitting in bed may be uncomfortable. Sitting up using your lateral muscles (sitting up sideways) is usually more comfortable. Do not drive, work heavy equipment of sign legal documents for 24 hours. If your hernia repair was an ingunial repair, you may have scrotal swelling, an ice pack and/or athletic support can provide more comfort. Pain medications may cause nausea, you should typically eat light foods as you take your pain medications. Pain medications may also cause constipation. If you have difficulty with this, discuss with your doctor. Call your doctor if your incision/area has: Continuous Slow Oozing, Sudden Increased Bleeding, Increased Pain/ Swelling, Increased Redness, Foul Smelling Discharge Call your doctor if you observe: Fever of 101 or Higher Suture Line Care: Avoid Pulling/Pushing, Avoid Pinching/Bending Additional Dressing/Incision Instructions:: Leave the operative bandage on for 2 -3 days. When you remove the bandage, leave the steri-strips on place until your follow up appointment or they fall off. Allergies/Adverse Reactions: Allergies No Known Allergies Allergy (Verified 01/14/14 11:04) Medications to take at Discharge Ascorbic Acid [Vitamin C] 1,000 mg PO DAILY@0800 Aspirin [Aspirin, Baby] 81 mg PO DAILY@0800 Cholecalciferol (Vitamin D3) [Vitamin D3] 1,000 unit PO DAILY Clopidogrel Bisulfate [Plavix] 75 mg PO DAILY Flavoring Agent [Cinnamon] 500 mg PO DAILY Levothyroxine [Synthroid] 100 mcg PO DAILY Magnesium 500 mg PO DAILY Metoprolol Tartrate [Lopressor (beta rigo)] 12.5 mg PO BID Multivitamins,Therapeutic 1 tablet PO DAILY Ramipril [Altace] 10 mg PO BID Rosuvastatin Calcium [Crestor] 10 mg PO QHS Tamsulosin HCl [Flomax] 0.4 mg PO DAILY Hydrocodone Bitart/Apap 5-325 [Vieques 5MG-325MG] 1 tablet PO Q4H PRN PRN #20 tablet The following prescriptions were given: Hydrocodone Bitart/Apap 5-325 [Vieques 5MG-325MG] 1 tablet PO Q4H PRN PRN #20 tablet PRN Reason: Pain Primary Care Physician: Kateryna Doyle DO [Primary Care Provider] - Please Follow Up With: Kuldip Mcduffie - [phone] When: Plan to have a follow up appointment in 7 days. Call to schedule. 01/21/14 1884 <Electronically signed by Kuldip Mcduffie MD> Date Kuldip Mcduffie MD CC: Kateryna Doyle DO Hilton Jay Start: 12-25-2013 End: 12-25-2013 Hernia repair Carina Montgomery Start: 08-23-2013 End: 08-23-2013 Inital Evaluation - PT Comments: See Note; NOTES: [facility] Physical Therapy [address] [place] [address] Fax REHABILITATION SERVICES INITIAL EVALUATION MR#: [id number] Acct: [id number] Name: СЕРГЕЙ ALMEIDA Rep #: [id number] : 1945 68 From: Candelario Guido Referring DrMorena: Kateryna Doyle DO Status: REG RCR Insurance: [employer] PPO Eval Date: DATE OF SERVICE: 08/20/2013 DIAGNOSIS: Gait disturbance. He leans to the left. PHYSICIAN: Dr. Doyle. SUBJECTIVE: Сергей Almeida is a 68-year-old male who reports that last summer he fell off of a deck and broke his left elbow, he needed to have surgery, had occupational therapy here at [facility] and he has regained function in there fairly well, he misses some range of motion mostly supination, but otherwise he has recovered. He has some stiffness in his hand and elbow at times, but good strength and very functional. However, he does state that since that time, his and some coworkers sometimes state that he leans to the left when he walks and asked him why he does that. He does not notice it. He says is not always there, but it is intermittent. He does not complain of any pain. He has no neck pain, no low back pain to speak of. His elbow does not bother him anymore. His activities at home and at work are normal with the exception of snap right pliers which he has a difficult time sometimes squeezing; otherwise, he is doing his full work job without any difficulty or any increased pain. He is admittedly fairly sedentary at home, watches a lot of TV, he is not on any regular exercises, but does get a lot of walking at work. He is able to do his basic ADLs as well as all of his necessary house duties, lawn duties without any problem. He has a history of heart bypass in 1995, metal implants in his left elbow and high blood pressure. His goals of treatment is to correct his left shoulder drooping. OBJECTIVE: The patient is a healthy looking 68-year-old male who ambulates in to therapy independently without any obvious deficits. He has slightly elevated left scapular posture, tends to elevate his left scapula as compared to the right side, it is a little bit closer to his spine in his normal posture than his right one does, but he can correct it when I cue him to. He has a little bit of a forward head and certainly a rounded kyphotic thoracic spine, both I would consider normal type changes for his age. He has full upper extremity range of motion, active range of motion with the exception of supination on the left side, which is limited about 10-15 degrees as compared to the right side. Sensation in the upper extremities within normal limits to gross light touch. Upper extremity strength is approximately 4+/5 in all motions except for external rotation of the left shoulder, which is about 4/5. Sensation in the upper extremities within normal limits to light touch. Cervical range of motion within normal limits without any pain. Lumbar spine range of motion is full and pain free and side bendings rotation and flexion and extension. He has a little bit of discomfort across the center of his low back with extension, but certainly nothing out of the ordinary for him. ASSESSMENT: At this point, the patient has slight elevated left scapula, which he can correct with appropriate verbal cues. I do not see any functional problems or any obvious leaning on this date. PLAN: At this point, I do not think skilled physical therapy is required. I have educated him on some home exercises to help with his posture, slouch over, correct exercise and scapular circles with the emphasis being on scapular depression and appropriate posture as well as serratus pushup exercise to be done on a daily basis. He is going to try these at home to see if they are helpful over the course of time. He is to let his doctor's office know if leaning to the left continues to be a problem. Candelario Guido, PT T: NTS JOB: [id number] <Electronically signed by Candelario Guido > 08/23/13 0646 CC: Signed For Medicare only, by signing this I certify the plan of care. Physicians Signature Date Hilton Jay Start: 07-06-2013 PSA screening Hilton Jay Comment on above: This test was performed using the TPSA a ssay method for the[employer] chemistry system. Values obtained with differentassay methods cannot be used interchangably.When changing PSA assays in the course of monitoring apatient, additional sequential testing should be carriedout to confirm baseline values. Start: 05-29-2012 PSA screening Hilton Jay Start: 11-24-1994 History of coronary artery bypass grafting H/O coronary artery bypass surgery Dr. Hilton Jay Work Phone: Comment on above: CABG x 3 SWANSON-LAD, SVG-D1, SVG-OM2 12/12 95 Colonoscopy Colonoscopy Hilton Indio Colonoscopy Colonoscopy Hilton Indio Colonoscopy Colonoscopy Hilton [place]io Colonoscopy Colonoscopy Hilton [place]io Colonoscopy Colonoscopy Hilton [place]io Colonoscopy Colonoscopy Hilton Indio fracture left elbow- with titanium plate Carina Ulises fracture left elbow- with titanium plate Carina Ulises fracture left elbow- with titanium plate Rosanne Messenger fracture left elbow- with titanium plate Lamine Campos fracture left elbow- with titanium plate Tara Gravius fracture left elbow- with titanium plate Tara Gravius fracture left elbow- with titanium plate Tara Gravius fracture left elbow- with titanium plate Viviana Marques [employer] fracture left elbow- with titanium plate Tara Gravius PUBLIC HEALTH SANITARIAN H/O: surgery Tonsillectomy Tara Gravius PUBLIC HEALTH SANITARIAN H/O: surgery Tonsillectomy Viviana Marques [employer] H/O: surgery H/O prostatectomy Dr. Scottie Jay Work Phone: Comment on above: March [address] Paulson H/O: surgery Tonsillectomy Tara Gravius PUBLIC HEALTH SANITARIAN H/O: surgery Mat Kwan PUBLIC HEALTH SANITARIAN History of coronary artery bypass grafting Hx of CABG Abhishek Alegria MD Work Phone: History of coronary artery bypass grafting Hx of CABG Abhishek Alegria MD Work Phone: History of placement of stent for coronary artery disease S/P coronary artery stent placement Abhishek Alegria MD Work Phone: History of placement of stent for coronary artery disease S/P coronary artery stent placement Reina Rodríguez PA-C Work Phone: Prostate Surgery - Removal Carina Ulises Comment on above: 03/13 Prostate Surgery - Removal Carina Ulises Comment on above: 03/13 Prostate Surgery - Removal Rosanne Messenger Comment on above: 03/13 Prostate Surgery - Removal Lamine Campos Comment on above: 03/13 Prostate Surgery - Removal Tara Gravius Comment on above: 03/13 Prostate Surgery - Removal Tara Gravius Comment on above: 03/13 Prostatectomy Tara Gravius Comment on above: 03/13 Prostatectomy Tara Gravius Comment on above: 03/13 Prostatectomy Viviana Marques [employer] Comment on above: 03/13 Prostatectomy Tara Gravius PUBLIC HEALTH SANITARIAN Comment on above: 03/13 Prostatectomy Kayela Culebra PUBLIC HEALTH SANITARIAN Tara Gravius PUBLIC HEALTH SANITARIAN Kayela Aquiles PUBLIC HEALTH SANITARIAN Plan of Treatment Date Care Activity Detail Author Start: 09-05-2025 DIABETES SCREEN DIABETES SCREEN [facility] Start: 06-27-2025 DIABETES SCREEN DIABETES SCREEN [facility] Start: 06-25-2025 DIABETES SCREEN DIABETES SCREEN [facility] Start: 09-14-2024 DIABETES SCREEN DIABETES SCREEN [facility] Start: 08-08-2024 DIABETES SCREEN DIABETES SCREEN [facility] Start: 07-23-2024 [facility] Start: 09-06-2023 HEMOGLOBIN/HEMATOCRIT HEMOGLOBIN/HEMATOCRIT [facility] Start: 09-06-2023 SERUM CREATININE SERUM CREATININE [facility] Start: 06-28-2023 SERUM CREATININE SERUM CREATININE [facility] Start: 06-26-2023 SERUM CREATININE SERUM CREATININE [facility] Start: 10-25-2022 Influenza vaccination [facility] Start: 09-14-2022 HEMOGLOBIN/HEMATOCRIT HEMOGLOBIN/HEMATOCRIT [facility] Start: 09-14-2022 SERUM CREATININE SERUM CREATININE [facility] Start: 08-08-2022 SERUM CREATININE SERUM CREATININE [facility] Start: 07-15-2022 Patient referral to dietitian [facility] Start: 06-12-2022 Procedure Education [facility] Work Phone: Start: 06-12-2022 Provider Instructions for Treatment [facility] Work Phone: Start: 05-04-2022 Patient discharge [facility] Start: 05-03-2022 Application of intermittent pneumatic compression device [facility] Start: 05-03-2022 Following clinical pathway protocol [facility] Start: 05-03-2022 Ambulation without limitation [facility] Start: 05-03-2022 Assessment of risk of venous thromboembolism [facility] Start: 05-03-2022 Inhalation therapy procedure [facility] Start: 05-03-2022 Insertion of catheter into peripheral vein [facility] Start: 05-03-2022 Measuring intake and output [facility] Start: 05-03-2022 Providing care according to standard [facility] Start: 05-03-2022 [facility] Start: 05-03-2022 Troponin I measurement [facility] Start: 05-03-2022 Verification routine [facility] Start: 05-03-2022 Admission procedure [facility] Start: 05-03-2022 [facility] Start: 03-27-2022 COVID-19 VACCINE (5 - Moderna series) COVID-19 VACCINE (5 - Moderna series) [facility] Start: 02-24-2022 ADVANCE DIRECTIVE DISCUSSION ADVANCE DIRECTIVE DISCUSSION [facility] Start: 02-24-2022 DEPRESSION ASSESSMENT DEPRESSION ASSESSMENT [facility] Start: 02-09-2022 End: 04-11-2022 CBC panel - Blood by Automated count CBC Lab Routine Nonrheumatic mitral valve regurgitation Expected: 02/09/2022, Expires: 04/11/2022 [facility] Work Phone: Comment on above: Expected: 02/09/2022, Expires: 3 Start: 02-09-2022 End: 04-11-2022 Comprehensive metabolic 2000 panel - Serum or Plasma COMP METABOLIC PANEL Lab Routine Nonrheumatic mitral valve regurgitation Expected: 02/09/2022, Expires: 04/11/2022 [facility] Work Phone: Comment on above: Expected: 02/09/2022, Expires: 3 Start: 02-09-2022 End: 04-11-2022 Natriuretic peptide.B prohormone N-Terminal [Mass/volume] in Serum or Plasma NT PRO BNP Lab Routine Nonrheumatic mitral valve regurgitation Hypertensive heart disease with heart failure (HCC) Expected: 02/09/2022, Expires: 04/11/2022 [facility] Work Phone: Comment on above: Expected: 02/09/2022, Expires: 3 Start: 01-19-2022 COVID-19 VACCINE (5 - Booster for Moderna series) COVID-19 VACCINE (5 - Booster for Moderna series) [facility] Start: 12-10-2021 Procedure Education [facility] Work Phone: Start: 12-10-2021 Provider Instructions for Treatment [facility] Work Phone: Start: 12-10-2021 25 hydroxy includes fractions if performed [facility] Work Phone: Start: 12-10-2021 Urnls dip stick/tablet reagent auto microscopy [facility]; [facility] Work Phone: Start: 12-10-2021 Urine albumin quantitative [facility]; [facility] Work Phone: Start: 12-10-2021 Lipid panel [facility] Work Phone: Start: 12-10-2021 Comprehensive metabolic panel [facility] Work Phone: Start: 12-10-2021 Blood count complete auto&auto difrntl wbc [facility] Work Phone: Start: 12-10-2021 Assay of thyroid stimulating hormone tsh [facility] Work Phone: Start: 10-25-2021 Influenza vaccination [facility] Start: 09-20-2021 Patient referral [facility] Work Phone: Start: 08-17-2021 End: 12-17-2021 SARS-CoV-2 (COVID-19) RNA [Presence] in Respiratory specimen by MONAE with probe detection INTERMEDIATE RAPID COVID Microbiology Routine Non-rheumatic mitral regurgitation 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 Expected: 08/17/2021, Expires: 12/17/2021 [facility] Work Phone: Comment on above: Expected: 08/17/2021, Expires: 2 Start: 06-07-2021 Procedure Education [facility] Work Phone: Start: 06-07-2021 Provider Instructions for Treatment [facility] Work Phone: Start: 06-07-2021 Lipid panel [facility] Work Phone: Start: 06-07-2021 Comprehensive metabolic panel [facility] Work Phone: Start: 06-07-2021 Blood count complete auto&auto difrntl wbc [facility] Work Phone: Start: 06-07-2021 25 hydroxy includes fractions if performed [facility] Work Phone: Start: 06-07-2021 Assay of thyroid stimulating hormone tsh [facility] Work Phone: Start: 04-21-2021 COVID-19 VACCINE (4 - Booster for Moderna series) COVID-19 VACCINE (4 - Booster for Moderna series) [facility] Start: 02-24-2021 ADVANCE DIRECTIVE DISCUSSION ADVANCE DIRECTIVE DISCUSSION [facility] [facility] Start: 02-24-2021 DEPRESSION ASSESSMENT DEPRESSION ASSESSMENT [facility] Start: 02-13-2021 COVID-19 VACCINE (4 - Booster for Moderna series) COVID-19 VACCINE (4 - Booster for Moderna series) [facility] Start: 12-06-2020 Procedure Education [facility] Work Phone: Start: 12-06-2020 Provider Instructions for Treatment [facility]; [facility] Work Phone: Start: 12-06-2020 25 hydroxy includes fractions if performed [facility]; [facility] Work Phone: Start: 12-06-2020 Urine albumin quantitative [facility]; [facility] Work Phone: Start: 12-06-2020 Comprehensive metabolic [facility]; [facility] Work Phone: Start: 12-06-2020 Lipid panel [facility]; [facility] Work Phone: Start: 12-06-2020 Blood count complete auto&auto difrntl wbc [facility]; [facility] Work Phone: Start: 12-06-2020 Assay of thyroid stimulating hormone tsh [facility]; [facility] Work Phone: Start: 12-06-2020 Assay of prostate specific antigen total [facility]; [facility] Work Phone: Start: 12-06-2020 Hepatitis c antibody [facility]; [facility] Work Phone: Start: 10-25-2020 Influenza vaccination INFLUENZA (Season Ended) [facility] Start: 06-05-2020 Procedure Education [facility]; [facility] Work Phone: Start: 06-05-2020 Provider Instructions for Treatment [facility]; [facility] Work Phone: Start: 06-05-2020 Urine albumin quantitative [facility]; [facility] Work Phone: Start: 06-05-2020 Comprehensive metabolic panel [facility]; [facility] Work Phone: Start: 06-05-2020 Blood count complete auto&auto difrntl wbc [facility]; [facility] Work Phone: Start: 06-05-2020 Assay of thyroid stimulating hormone tsh [facility]; [facility] Work Phone: Start: 06-05-2020 TSH Qn TSH (82063) [facility]; [facility] Work Phone: Start: 12-06-2019 Procedure Education [facility] Work Phone: Start: 12-06-2019 Provider Instructions for Treatment [facility] Work Phone: Start: 10-04-2019 Procedure Education [facility] Work Phone: Start: 10-04-2019 Provider Instructions for Treatment [facility] Work Phone: Start: 10-04-2019 Comprehensive metabolic panel [facility] Work Phone: Start: 10-04-2019 Lipid panel [facility] Work Phone: Start: 10-04-2019 Blood count complete auto&auto difrntl wbc [facility] Work Phone: Start: 10-04-2019 HbA1c (Bld) [Mass fraction] HGB A1C (06779) [facility] Work Phone: Start: 10-04-2019 Hemoglobin glycosylated a1c [facility]; [facility] Work Phone: Start: 10-04-2019 Assay of thyroid stimulating hormone tsh [facility]; [facility] Work Phone: Start: 10-04-2019 TSH Qn TSH (29689) [facility] Work Phone: Start: 10-04-2019 Assay of free thyroxine [facility]; [facility] Work Phone: Start: 10-04-2019 Free T4 [Mass/Vol] T4, FREE (THYROXINE) (11331) [facility] Work Phone: Start: 10-04-2019 Assay of triiodothyronine t3 free [facility]; [facility] Work Phone: Start: 10-04-2019 Free T3 [Mass/Vol] T3, FREE (TRIDOTHYRONINE) (63982) [facility] Work Phone: Start: 09-13-2019 Procedure Education [facility] Work Phone: Start: 09-13-2019 Provider Instructions for Treatment [facility] Work Phone: Start: 03-03-2019 Procedure Education [facility] Work Phone: Start: 03-03-2019 Provider Instructions for Treatment [facility] Work Phone: Start: 02-15-2019 Procedure Education [facility] Work Phone: Start: 02-15-2019 Provider Instructions for Treatment [facility] Work Phone: Start: 01-20-2019 Procedure Education [facility] Work Phone: Start: 10-15-2018 Provider Instructions for Treatment [facility] Work Phone: Start: 06-11-2018 Antibody rubeola [facility] Work Phone: Start: 04-29-2018 Procedure Education [facility] Work Phone: Start: 04-29-2018 Provider Instructions for Treatment [facility] Work Phone: Start: 04-29-2018 Bacteria identified Respiratory culture Nom (Sput) Sputum Culture (61546) [facility] Work Phone: Start: 04-29-2018 Cul bact xcpt urine blood/stool aerobic isol [facility]; [facility] Work Phone: Start: 04-23-2018 Patient Education [facility] Work Phone: Start: 04-23-2018 Procedure Education [facility] Work Phone: Start: 04-23-2018 Provider Instructions for Treatment [facility] Work Phone: Start: 01-05-2018 Patient Education [facility] Work Phone: Start: 01-05-2018 Procedure Education [facility] Work Phone: Start: 01-05-2018 Provider Instructions for Treatment [facility] Work Phone: Start: 11-27-2017 Provider Instructions for Treatment [facility] Work Phone: Start: 04-17-2017 Provider Instructions for Treatment [facility] Work Phone: Start: 04-17-2017 Assay of thyroid stimulating hormone tsh [facility]; [facility] Work Phone: Start: 04-17-2017 Thyrotropin Qn TSH (36992) [facility] Work Phone: Start: 04-17-2017 Comprehensive metabolic panel [facility] Work Phone: Start: 04-17-2017 Lipoprotein blood stacia numbers & subclasses [facility]; [facility] Work Phone: Start: 04-17-2017 Protein mass conc LIPOPROTEIN, BLD, BY NMR (87053) [facility] Work Phone: Start: 04-17-2017 Lipid panel [facility] Work Phone: Start: 04-17-2017 Blood count complete auto&auto difrntl wbc [facility] Work Phone: Start: 11-20-2016 Provider Instructions for Treatment [facility] Work Phone: Start: 10-14-2016 Provider Instructions for Treatment [facility] Work Phone: Start: 10-14-2016 Comprehensive [facility] panel [facility] Work Phone: Comment on above: send results to dr Rodriguez Start: 10-14-2016 Lipid panel [facility] Work Phone: Comment on above: send copy of results to dr Rodriguez Start: 10-14-2016 Assay of prostate specific antigen total [facility] Work Phone: Comment on above: due after 11/09/16send copy to dr Paulson Start: 10-14-2016 Protein mass conc PSA (PROSTATE SPECIFIC ANTIGEN) (V76.44) [facility] Work Phone: Comment on above: due after 11/09/16send copy to dr Paulson Start: 10-14-2016 Urnls dip stick/tablet reagent auto microscopy [facility] Work Phone: Start: 10-14-2016 Urine albumin quantitative [facility] Work Phone: Start: 10-14-2016 Blood count complete auto&auto difrntl wbc [facility] Work Phone: Start: 10-14-2016 Assay of thyroid stimulating hormone tsh [facility]; [facility] Work Phone: Start: 10-14-2016 Thyrotropin Qn TSH (79441) [facility] Work Phone: Start: 11-13-2015 Provider Instructions for Treatment [facility] Work Phone: Start: 11-08-2015 Procedure Education [facility] Work Phone: Start: 10-16-2015 Provider Instructions for Treatment [facility] Work Phone: Start: 10-16-2015 Assay of prostate specific antigen total [facility] Work Phone: Start: 10-16-2015 Protein mass conc PSA (PROSTATE SPECIFIC ANTIGEN) (59466) [facility] Work Phone: Start: 10-16-2015 Assay of thyroid stimulating hormone tsh [facility]; [facility] Work Phone: Start: 10-16-2015 Thyrotropin Qn TSH (79096) [facility] Work Phone: Start: 10-16-2015 Urnls dip stick/tablet reagent auto microscopy [facility] Work Phone: Start: 10-16-2015 Urine albumin quantitative [facility] Work Phone: Start: 10-16-2015 Comprehensive metabolic panel [facility] Work Phone: Start: 10-16-2015 Blood count complete auto&auto difrntl wbc [facility] Work Phone: Start: 08-17-2015 Procedure Education [facility] Work Phone: Start: 11-07-2014 Patient Education [facility] Work Phone: Start: 11-07-2014 Procedure Education [facility] Work Phone: Start: 11-07-2014 Provider Instructions for Treatment [facility] Work Phone: Start: 10-18-2014 Assay of prostate specific antigen total [facility] Work Phone: Start: 10-18-2014 Protein mass conc PSA (PROSTATE SPECIFIC ANTIGEN) (51023) [facility] Work Phone: Start: 10-18-2014 Urnls dip stick/tablet reagent auto microscopy [facility] Work Phone: Start: 10-18-2014 Blood count manual cell count each [facility] Work Phone: Start: 10-18-2014 Comprehensive metabolic panel [facility] Work Phone: Start: 10-18-2014 Assay of thyroid stimulating hormone tsh [facility]; [facility] Work Phone: Start: 10-18-2014 Thyrotropin Qn TSH (26659) [facility] Work Phone: Start: 08-11-2013 Patient Education [facility] Work Phone: Start: 08-11-2013 Procedure Education [facility] Work Phone: Start: 08-11-2013 Cobalamin (Vitamin B12) mass conc VITAMIN B-12 (CYANOCOBALAMIN) (09438) [facility] Work Phone: Start: 08-11-2013 Cyanocobalamin vitamin b-12 [facility]; [facility] Work Phone: Start: 08-11-2013 Comprehensive metabolic panel [facility] Work Phone: Start: 08-11-2013 Assay of thyroid stimulating hormone tsh [facility]; [facility] Work Phone: Start: 08-11-2013 Thyrotropin Qn TSH (64441) [facility] Work Phone: Start: 08-11-2013 Lipid panel [facility] Work Phone: Start: 04-21-2013 Assay of prostate specific antigen total [facility] Work Phone: Start: 04-21-2013 Protein mass conc PSA (PROSTATE SPECIFIC ANTIGEN) (V76.44) [facility] Work Phone: Start: 04-21-2013 Lipid panel [facility] Work Phone: Start: 04-21-2013 Comprehensive metabolic panel [facility] Work Phone: Start: 04-21-2013 Patient Education [facility] Work Phone: Start: 04-21-2013 Provider Instructions for Treatment [facility] Work Phone: Start: 02-24-2013 Lipid panel [facility] Work Phone: Start: 09-02-2012 Assay of thyroid stimulating hormone tsh [facility]; [facility] Work Phone: Start: 09-02-2012 Thyrotropin Qn TSH (60435) [facility] Work Phone: Start: 06-02-2012 Blood count manual cell count each [facility] Work Phone: Start: 06-02-2012 Comprehensive metabolic panel [facility] Work Phone: Start: 06-02-2012 Lipid panel [facility] Work Phone: Start: 06-02-2012 Patient Education [facility] Work Phone: Start: 05-25-2012 Assay of thyroid stimulating hormone tsh [facility]; [facility] Work Phone: Start: 05-25-2012 Thyrotropin Qn TSH (06428) [facility] Work Phone: Start: 05-25-2012 Comprehensive metabolic panel [facility] Work Phone: Start: 05-25-2012 Blood count manual cell count each [facility] Work Phone: Start: 05-25-2012 PSA screening [facility] Work Phone: Start: 07-02-2011 Assay of prostate specific antigen total [facility] Work Phone: Start: 07-02-2011 Protein mass conc PSA (PROSTATE SPECIFIC ANTIGEN) (V76.44) [facility] Work Phone: Start: 07-02-2011 Assay of thyroid stimulating hormone tsh [facility]; [facility] Work Phone: Start: 07-02-2011 Thyrotropin Qn TSH (52467) [facility] Work Phone: Start: 10-24-2010 Provider Instructions for Treatment [facility] Work Phone: Start: 08-17-2010 C-reactive protein [facility]; [facility] Work Phone: Start: 08-17-2010 CRP mass conc C-REACTIVE PROTEIN (39851) [facility] Work Phone: Start: 07-11-2010 Protein mass conc (U) Urine Protein Electrophoresis (UPEP) (62941) [facility] Work Phone: Start: 07-11-2010 Protein electrophoretic fractj&quantj serum [facility]; [facility] Work Phone: Start: 07-11-2010 Protein mass conc Serum Protein Electrophoresis (SPEP) (59981) [facility] Work Phone: Start: 07-11-2010 C-reactive protein [facility]; [facility] Work Phone: Start: 07-11-2010 CRP mass conc C-REACTIVE PROTEIN (15949) [facility] Work Phone: Start: 07-11-2010 Cyclic citrullinated peptide antibody [facility] Work Phone: Start: 07-11-2010 Sedimentation rate rbc non-automated [facility] Work Phone: Start: 07-11-2010 Antinuclear antibodies tera [facility]; [facility] Work Phone: Start: 07-11-2010 Assay of thyroid stimulating hormone tsh [facility]; [facility] Work Phone: Start: 07-11-2010 Blood count manual cell count each [facility] Work Phone: Start: 07-11-2010 Nuclear Ab IF titer (S) TERA (ANTINUCLEAR ANTIBODY) (95330) [facility] Work Phone: Start: 07-11-2010 Rheumatoid factor quantitative [facility] Work Phone: Start: 07-11-2010 Thyrotropin Qn TSH (48770) [facility] Work Phone: Start: 07-11-2010 Comprehensive metabolic panel [facility] Work Phone: Start: 06-25-2010 Provider Instructions for Treatment [facility] Work Phone: Start: 06-22-2010 Provider Instructions for Treatment [facility] Work Phone: Start: 05-08-2010 Assay of prostate specific antigen total [facility] Work Phone: Start: 05-08-2010 Protein mass conc PSA (PROSTATE SPECIFIC ANTIGEN) (V76.44) [facility] Work Phone: Start: 05-08-2010 Assay of thyroid stimulating hormone tsh [facility]; [facility] Work Phone: Start: 05-08-2010 Thyrotropin Qn TSH (93995) [facility] Work Phone: Start: 05-02-2010 Assay of prostate specific antigen total [facility] Work Phone: Start: 05-02-2010 Protein mass conc PSA (PROSTATE SPECIFIC ANTIGEN) (26046) [facility] Work Phone: Start: 05-02-2010 Urinalysis qual/semiquant except immunoassays [facility] Work Phone: Start: 05-02-2010 Assay of thyroid stimulating hormone tsh [facility]; [facility] Work Phone: Start: 05-02-2010 Thyrotropin Qn TSH (THYROID STIMULATING HORMONE) (29139) [facility] Work Phone: Start: 05-02-2010 Blood count complete auto&auto difrntl wbc [facility] Work Phone: Start: 05-02-2010 Comprehensive metabolic panel [facility] Work Phone: Start: 05-01-2010 Assay of prostate specific antigen total [facility] Work Phone: Start: 05-01-2010 Protein mass conc PSA (Prostate Specific Antigen), Screening (69601) [facility] Work Phone: Start: 05-01-2010 Assay of thyroid stimulating hormone tsh [facility]; [facility] Work Phone: Start: 05-01-2010 Thyrotropin Qn TSH (36287) [facility] Work Phone: Start: 05-01-2010 Urinalysis qual/semiquant except immunoassays [facility] Work Phone: Start: 05-01-2010 Blood count manual cell count each [facility] Work Phone: Start: 05-01-2010 Comprehensive metabolic panel [facility] Work Phone: Start: 02-22-2010 Provider Instructions for Treatment [facility] Work Phone: Start: 08-11-2009 Assay of thyroid stimulating hormone tsh [facility]; [facility] Work Phone: Start: 08-11-2009 Thyrotropin Qn TSH (27157) [facility] Work Phone: Start: 06-29-2009 Patient Education [facility] Work Phone: Start: 06-29-2009 Provider Instructions for Treatment [facility] Work Phone: Start: 05-30-2009 Provider Instructions for Treatment [facility] Work Phone: Start: 05-30-2009 Microsomal antibodies each [facility] Work Phone: Start: 05-30-2009 Assay of free thyroxine [facility]; [facility] Work Phone: Start: 05-30-2009 T4 free mass conc T4, FREE (THYROXINE) (24256) [facility] Work Phone: Start: 05-30-2009 Assay of triiodothyronine t3 free [facility]; [facility] Work Phone: Start: 05-30-2009 T3 free mass conc T3, FREE (TRIDOTHYRONINE) (00060) [facility] Work Phone: Start: 05-30-2009 Assay of thyroid stimulating hormone tsh [facility]; [facility] Work Phone: Start: 05-30-2009 Thyrotropin Qn TSH (92554) [facility] Work Phone: Start: 05-30-2009 Basic metabolic panel calcium total [facility] Work Phone: Start: 11-09-2008 Patient Education [facility] Work Phone: Start: 11-09-2008 Provider Instructions for Treatment [facility] Work Phone: Start: 11-09-2008 Iaadiadoo streptococcus group a [facility]; [facility] Work Phone: Start: 11-09-2008 S. pyogenes Ag IA Ql (Unsp spec) Rapid Strep Test, Office (16928) [facility] Work Phone: Start: 10-10-2008 Provider Instructions for Treatment [facility] Work Phone: Start: 06-14-2008 Provider Instructions for Treatment [facility] Work Phone: Start: 2008 ADVANCE DIRECTIVE DISCUSSION ADVANCE DIRECTIVE DISCUSSION [facility] Start: 2008 PNEUMOCOCCAL: 65+ (1 - PCV) PNEUMOCOCCAL: 65+ (1 - PCV) [facility] Start: 2008 PNEUMOVAX AGE 65 AND OVER WITH 5YR LOOKBACK (#1) PNEUMOVAX AGE 65 AND OVER WITH 5YR LOOKBACK (#1) [facility] Start: 11-20-2007 Provider Instructions for Treatment [facility] Work Phone: Start: 04-08-2007 Provider Instructions for Treatment [facility] Work Phone: Start: 04-06-2007 Provider Instructions for Treatment [facility] Work Phone: Start: 02-26-2007 Provider Instructions for Treatment [facility] Work Phone: Start: 12-17-2006 Urnls dip stick/tablet rgnt auto w/o microscopy [facility] Work Phone: Start: 12-17-2006 Assay of thyroid stimulating hormone tsh [facility]; [facility] Work Phone: Start: 12-17-2006 Thyrotropin Qn TSH (06710) [facility] Work Phone: Start: 12-17-2006 Lipid panel [facility] Work Phone: Start: 12-17-2006 Comprehensive metabolic panel [facility] Work Phone: Start: 12-17-2006 Blood count manual cell count each [facility] Work Phone: Start: 12-17-2006 Assay of prostate specific antigen total [facility] Work Phone: Start: 12-17-2006 Protein mass conc PSA (PROSTATE SPECIFIC ANTIGEN) (90403) [facility] Work Phone: Start: 1993 Screening for malignant neoplasm of colon [facility] Start: 1993 SHINGRIX VACCINE (1 of 2) SHINGRIX VACCINE (1 of 2) [facility] Start: 1988 DIABETES SCREEN DIABETES SCREEN [facility] Start: 1962 Urine microalbumin profile DTAP,TDAP,TD (1 - Tdap) [facility] Start: 1961 ANNUAL PCP TEAM CHRONIC DISEASE VISIT ANNUAL PCP TEAM CHRONIC DISEASE VISIT [facility] Start: 1961 BP CONTROLLED (<130/80) BP CONTROLLED (<130/80) [facility] Start: 1961 Hepatitis B surface antibody level LDL CHOLESTEROL [facility] Start: 1961 HEPATITIS C SCREENING HEPATITIS C SCREENING [facility] Start: 1955 Adult depression screening assessment DEPRESSION SCREENING [facility] Start: 1949 PNEUMOCOCCAL: 65+ (1 - PCV) PNEUMOCOCCAL: 65+ (1 - PCV) [facility] Start: 1948 COVID-19 VACCINE (1) COVID-19 VACCINE (1) [facility] Start: 02-24-1903 Comprehensive [facility] panel [facility] Work Phone: End: 06-07-2022 Cardiac mri for velocity flow mapping MRI CARDIAC VELOCITY FLOW MAP Radiology Routine Shortness of breath Nonrheumatic mitral valve regurgitation Chronic diastolic heart failure (HCC) 1 Occurrences starting 05/08/2021 until 06/07/2022 [facility] Work Phone: Comment on above: 1 Occurrences starting 05/08/2021 until 06/07/2022 End: 06-07-2022 Cardiac mri w/wo contrast & further seq MRI CARDIAC MORPH FUNC WO/W IVCON Radiology Routine Shortness of breath Nonrheumatic mitral valve regurgitation Chronic diastolic heart failure (HCC) 1 Occurrences starting 05/08/2021 until 06/07/2022 [facility] Work Phone: Comment on above: 1 Occurrences starting 05/08/2021 until 06/07/2022 CARDIAC REHAB II OUT PT ([place], [place]) CARDIAC REHAB II OUTPT ([place]) BIC Routine S/P mitral valve clip implantation S/P coronary artery stent placement Ordered: 07/05/2022 [facility] Work Phone: Comment on above: Ordered: 07/05/2022 End: 08-10-2022 ECG COMPLETE ECG COMPLETE ECG Routine Nonrheumatic mitral valve regurgitation 1 Occurrences starting 08/10/2021 until 08/10/2022 [facility] Work Phone: Comment on above: 1 Occurrences starting 08/10/2021 until 08/10/2022 End: 08-10-2022 Echocardiography ECHO Cardiology Routine Nonrheumatic mitral valve regurgitation 1 Occurrences starting 08/10/2021 until 08/10/2022 [facility] Work Phone: Comment on above: 1 Occurrences starting 08/10/2021 until 08/10/2022 Measurement of segme ntal blood pressure of artery of limb using doppler ultrasonography [facility] Work Phone: Patient referral [facility] Work Phone: [facility] Work Phone: [facility] Work Phone: [facility] Work Phone: [facility] Work Phone: [facility] Work Phone: [facility] Work Phone: [facility] Work Phone: [facility] Work Phone: [facility] Work Phone: [facility] Work Phone: [facility] Work Phone: [facility] Work Phone[facility] Work Phone: [facility] Work Phone: [facility] Work Phone: [facility] Work Phone: [facility] Work Phone: [facility] Work Phone: [facility] Work Phone[facility] Work Phone: [facility] Work Phone: [facility] Work Phone: [facility] Work Phone[facility] Work Phone: [facility] Work Phone[facility] Work Phone: [facility] Work Phone: [facility] Immunizations Immunization Date Immunization Notes Care Provider [facility] 12-10-2021 pneumococcal polysaccharide vaccine, 23 valent Hilton Jay DO Work Phone: [facility] Work Phone: 11-24-2021 Evangelina (Moderna) Dr. Hilton Jay Work Phone: [facility] 10-25-2021 influenza, injectabl e, quadrivalent, preservative free iHlton Jay DO Work Phone: [facility]; [facility] Work Phone: 05-25-2020 COVID-19 (Moderna) Hilton Jay [facility]; [facility] Work Phone: 11-25-2019 influenza, seasonal, injectable Hilton Jay [facility] Work Phone: 02-01-2019 influenza, seasonal, injectable Hilton Jay [facility] Work Phone: Comment on above: Site: Left DeltoidDr . [facility] office 11-25-[address] Hilton Jay Work Phone: [facility] 12-20-2015 pneumococcal conjuga te vaccine, 7 valent Hilton Jay [facility] Work Phone: 07-26-2015 pneumococcal conjuga te vaccine, 13 valent Hilton Jay [facility] Work Phone: Comment on above: prevnar 13 12-26-2006 pneumococcal polysaccharide vaccine, 23 valent Hilton Jay [facility] Work Phone: Comment on above: given in left deltoi d, 0.5cc, lot#[id number], exp.5.09 WF 12-17-2006 influenza, seasonal, injectable Hilton Jay [facility] Work Phone: Comment on above: Lot #:[id number] ion date:08/01Amount given:0.5mlRoute: IMSite given:left deltoidGiven by: BHARATI Limon Payers Date Payer Category Payer Self-pay [id number] 2015 Unknown 2015 Unknown [id number] 2015 Unknown [id number] 2013 Medicare HUMANA MEDICARE HUMANA MEDICARE PPO [id number] 2013-Present PPO [id number] 2009 Private Health Insurance [id number] 2008 Medicare [id number] 2008 Medicare [id number] 2008 Medicare [id number] 2008 Medicare MEDICARE MEDICAR E A AND B [id number] 2008-Present [phone] [place] [address] Medicare [id number] 2008 Medicare MEDICARE MEDICAR E A AND B [id number] 2008-Present [phone] [address] [place] [id number] Medicare [id number] 1945 Unknown [id number] 16 Unknown [id number] Unknown [id number] Unknown [id number] Unknown [id number] 62 Unknown [id number] 62 Unknown [id number] 62 Unknown [id number] 62 Unknown [id number] 62 Unknown [id number] [id number] 62 Unknown [id number] 62 Unknown [id number] 62 Unknown [id number] 62 Unknown [id number] 62 Unknown [id number] 62 Unknown [id number] 62 Unknown [id number] 62 Unknown [id number] 62 Social History Date Type Detail Facility Start: 06-26-2022 End: 07-05-2022 Living Situation Never smoker [facility] 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 [facility] Work Phone: Start: 01-06-2014 End: 07-23-2024 Tobacco smoking status NHIS Never smoker [facility] Start: 01-06-2014 End: 01-24-2014 Alcohol intake Not Asked [facility] Start: 1945 Sex Assigned At Not on file C [facility] Tobacco use: Tobacco use: [facility] Work Phone: Start: 04-30-2021 End: 09-28-2022 Tobacco smoking status INIS Unknown if ever smoked [facility] Start: 10-07-2018 Occasional [facility] Start: 10-07-2018 None [facility] Start: 10-07-2018 Spouse/ Signif icant Other [facility] Start: 10-07-2018 Non-smoker [facility] Start: 1945 Sex Assigned At Male W [facility] Start: 01-06-2014 End: 07-05-2022 Tobacco use and exposure Smokeless tobacco non-user [facility] Start: 08-08-2021 End: 07-05-2022 Alcohol intake Current drinker of alcohol (finding) [facility] Start: 08-08-2021 History SDOH Alcohol Comment occasional [facility] Start: 07-29-2021 End: 11-22-2021 Exposure to SARS-CoV-2 (event) Not sure [facility] Start: 08-08-2021 End: 08-18-2021 Exposure to SARS-CoV-2 (event) Unable to assess [facility] Start: 06-26-2022 End: 07-05-2022 Tobacco use panel [facility] National Score (1-10 0), lower number is lower risk 50 [facility] Medical Equipment Procedure Code Equipment Code Equipment Origin al Text Equipment Identifier Dates ([id number]) Wound hydrogel dressing, non-antimicrobial [id number] [id number] FDA Start: 04-30-2021 [id number] - [id number] Start: 06-26-2022 Sys Kit 1 Sgc & Up To 3 Clips - [id number] Start: 06-26-2022 Goals Date Patient Goal Desired Activity /State Functional Status Date Assessment Result Facility 05-04-2022 Functional status Ambulates [facility] Work Phone: Mental Status Date Assessment Result Facility 06-02-2022 Cognitive function Level Of Cons ciousness Awake;Alert;Appropriate;Follow s Commands [facility] Work Phone: 05-04-2022 Cognitive function Voice/Name [facility] Work Phone: 05-03-2022 Cognitive function Voice/Name [facility] Work Phone: Clinical Notes 11-24-1994 to 08-05-2024 Telephone Encounter - Raven Ortiz - 09/10/2022 10:04 AM EDTTelephone Encounter - SARI Valdovinos - 07/05/2022 10:58 AM EDTLisa Kristopher Rodríguez PA-C - 07/05/2022 9:00 AM EDT Note Date & Type Note Facility 08-05-2024 Radiology Diagnostic study note [facility] Imaging Services [address] [address] CT Abd/Pelvis W/WO Contrast MR#: [id number] Acct: [id number] Name: СЕРГЕЙ ALMEIDA Rep #: [id number] : 1945 M 79 From: Rossy Mcnulty MD PCP: Dr. Hilton Jay, DO Status: RE G CLI Study:CT Abd/Pelvis W/WO Contrast Date of Exa m: 08/04/24 Exam# [id number] Ordering Dr: Medardo Paulson MD PROCEDURE: CT ABD/PELVIS W/WO CONTRAST 08/04/2024 REASON FOR EXAM: GROSS HEMATURIA/PROSTATE CA TECHNIQUE: Abdomen and pelvis CT with intravenous contrast. Coronal and Sagittal reconstruction series were provided. Precontrast images are provided. PATIENT PREPARATION: Per protocol ORAL CONTRAST TYPE: None. CONTRAST: Isovue-350 VOLUME: 100 mL One or more dose reduction techniques were used (e.g., Automated exposure control, adjustment of the mA and/or kV according to patient size, use of iterative reconstruction technique. RADIATION DOSE SUMMARY: CTDlvol: 13.67 mGy DLP: 1341 mGycm COMPARISON: 09/04/2023. FINDINGS: Unchanged large hiatal hernia. Prior radical prostatectomy, unchanged. Diffuse spondylosis, unchanged. Unchanged mild atheromatous plaques of the aorta. Unchanged multiple left renal parapelvic cysts. Mild diffuse thickening of the underdistended bladder. The visualized lung bases are unremarkable. Normal liver. Normal gallbladder and extrahepatic biliary system. Normal spleen. Normal pancreas. Normal bilateral adrenal glands. Normal size of the right kidney. There is no right renal mass. There are no right renal calculi. There is no right hydronephrosis. Normal visualized right ureter. Normal size of the left kidney. There is no left renal mass. There are no leftrenal calculi. There is no left hydronephrosis. Normal visualized left ureter. Normal visualized stomach. Normal small intestine. Normal colon. The appendix is visualized and appears normal. There is no demonstrated peritoneal fluid. Normal abdominal aorta. Normal inferior vena cava. Normal retroperitoneum. There is no pelvic mass lesion or lymphadenopathy. There is no pelvic fluid. Normal abdominal wall. Normal osseous structures. CT/CT Abd/Pelvis W/WO Contrast IMPRESSION: No significant change is noted. No CT evidence of disease recurrence. Mild diffuse thickening of the underdistended bladder, possibly cystitis. [facility]: Dr. Brenden Paulson MD; Dr. 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 Service: ? Author Type: ? Type: Progress Notes Filed: 08/25/2023 10:22 Note Text: Summary: KCCQ-12 AMB TVT FOLLOWUP: Follow Up Type: Phone Call Call Attempt: Final Attempt Call Status: Questionnaire Answered [place] Cardiomyopathy Questionnaire (KCCQ-12) 1. How much you are limited by heart failure (shortness of breath or fatigue) in your ability to do the following activities over the past 2 weeks A. Activity - Showering/bathin - Not at all limited B. Activity - Walking 1 block on level ground: 5 - Not at all limited C. Activity - Hurrying or jogging (as if to catch a bus): 5 - Not at all limited 2. Over the past 2 weeks, how many times did you have swelling in your feet, ankles or legs when you woke up in the morning?: 5: Never over the past 2 weeks 3. Over the past 2 weeks, on average, how many times did you has fatigue limited your ability to do what you wanted?: 6: Less than once a week 4. Over the past 2 weeks, on average, how many times has shortness of breath limited your ability to do what you wanted?: 7: Never over the past 2 weeks 5. Over the past 2 weeks, on average, how many times have you been forced to sleep sitting up in a chair or with at least 3 pillows to prop you up because of shortness of breath?: 5: Never over the past 2 weeks 6. Over the past 2 weeks, how much has your heart failure limited your enjoyment of life?: 5 - It has not limited my enjoyment of life at all 7. If you had to spend the rest of your life with your heart failure the way it is right now, how would you feel about this?: 5 - Completely satisfied A. 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 Visiting family or friends out of your home: 5 - Did not limit at all [facility] 08-25-2023 Note Patient Outreach ([facility]) СЕРГЕЙ ALMEIDA ([id number]) 1945 M Date Time Provider Department 08/25/23 ANNA BOWLES During your visit today, we recorded the following information about you: Anna Bowles 08/25/2023 10:22 AM Signed AMB TVT FOLLOWUP: Follow Up Type: Phone Call Call Attempt: Final Attempt Call Status: Questionnaire Answered [place]erry Cardiomyopathy Questionnaire (KCCQ-12) 1. How much you are limited by heart failure (shortness of breath or fatigue) in your ability to do the following activities over the past 2 weeks A. Activity - Showering/bathin - Not at all limited B. Activity - Walking 1 block on level ground: 5 - Not at all limited C. Activity - Hurrying or jogging (as if to catch a bus): 5 - Not at all limited 2. Over the past 2 weeks, how many times did you have swelling in your feet, ankles or legs when you woke up in the morning?: 5: Never over the past 2 weeks 3. Over the past 2 weeks, on average, how many times did you has fatigue limited your ability to do what you wanted?: 6: Less than once a week 4. Over the past 2 weeks, on average, how many times has shortness of breath limited your ability to do what you wanted?: 7: Never over the past 2 weeks 5. Over the past 2 weeks, on average, how many times have you been forced to sleep sitting up in a chair or with at least 3 pillows to prop you up because of shortness of breath?: 5: Never over the past 2 weeks 6. Over the past 2 weeks, how much has your heart failure limited your enjoyment of life?: 5 - It has not limited my enjoyment of life at all 7. If you had to spend the rest of your life with your heart failure the way it is right now, how would you feel about this?: 5 - Completely satisfied A. 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 Visiting family or friends out of your home: 5 - Did not limit at all Allergies As of Date: 08/25/2023 Noted Allergy Reaction BEES 01/06/2014 4 - Hives 10 - Anaphylaxis NIACIN 01/06/2014 16 - Unknown RAMIPRIL 11/22/2021 18 - Angioedema Date Reviewed: 07/05/2022 Reviewed by: Reina Rodríguez PA-C - Fully Assessed Prescriptions as of 08/25/2023 - apixaban (ELIQUIS) 5 mg tab(s) Take 1 tablet by mouth twice daily. - nitroglycerin sublingual (NITROQUICK) 0.4 mg SL tablet Dissolve 0.4 mg under the tongue every 5 minutes as needed for chest pain. - metoprolol tartrate, short acting, (LOPRESSOR) 25 mg tablet Take 12.5 mg by mouth twice daily. - amLODIPine (NORVASC) 2.5 mg tablet Take 2.5 mg by mouth once daily. - clopidogrel (PLAVIX) 75 mg tablet Take 1 tablet by mouth once daily. May transfer subsequent refills to preferred pharmacy - MAGNESIUM ORAL Take 500 mg by mouth once daily. - VITAMIN B COMPLEX-100 ORAL Take 1 tablet by mouth once daily. - ubidecarenone/vitamin E mixed (COQ10 SG 100 ORAL) Take 100 mg by mouth once daily. - latanoprost (XELPROS) 0.005 % ophthalmic emulsion Use 1 Drop in both eyes daily at bedtime. - cholecalciferol (VITAMIN D3) 1,000 unit tab tablet Take 1,000 Units by mouth once daily. - levothyroxine (SYNTHROID) 100 mcg tablet Take 100 mcg by mouth once daily. - CRESTOR 10 mg tablet Take 5 mg by mouth once daily. - omega-3 fatty acids 1,000 mg cap Take 2 g by mouth twice daily. - Cinnamon Bark 500 mg cap Take 1,000 mg by mouth once daily. - MULTI-VITAMIN ORAL Take 1 tablet by mouth once daily. Facility-Administered Medications as of 08/25/2023 - perflutren lipid microspheres 1.3 mL in NaCl (PF) 0.9% 10 mL injection (DEFINITY) - sodium chloride 0.9 % (flush) 10 mL (BD POSIFLUSH) Problem List As Of Date 08/25/2023 Noted Resolved Right inguinal hernia [K40.90] 01/06/2014 Mitral valve prolapse [I34.1] 08/08/2021 Non-rheumatic mitral regurgitation [I34.0] 08/08/2021 Coronary artery disease involving chemehuevi reyes*08/08/2021 S/P CABG x 3 [Z95.1] 08/08/2021 Hypertensive kidney disease with CKD (chronic k*08/08/2021 Chronic combined systolic and diastolic congest*06/25/2022 Paroxysmal atrial fibrillation (HCC) [I48.0] 06/25/2022 Severe mitral regurgitation [I34.0] 06/26/2022 Encounter Status:Closed by ANNA BOWLES on 08/25/23 [facility] 08-22-2023 Note HNO ID: [id number] Author: ?, ?, ? Service: ? Author Type: ? Type: Progress Notes Filed: 08/22/2023 09:16 Note Text: Summary: KCCQ-12 AMB TVT FOLLOWUP: Follow Up Type: Phone Call Call Attempt: 1st Attempt Call Status: Left Message [facility] 08-22-2023 Note Patient Outreach ([facility]) СЕРГЕЙ ALMEIDA ([id number]) 1945 M Date Time Provider Department 08/22/23 ANNA BOWLESUMN During your visit today, we recorded the following information about you: Anna Bowles 08/22/2023 9:16 AM Signed AMB TVT FOLLOWUP: Follow Up Type: Phone Call Call Attempt: 1st Attempt Call Status: Left Message Allergies As of Date: 08/22/2023 Noted Allergy Reaction BEES 01/06/2014 4 - Hives 10 - Anaphylaxis NIACIN 01/06/2014 16 - Unknown RAMIPRIL 11/22/2021 18 - Angioedema Date Reviewed: 07/05/2022 Reviewed by: Reina Rodríguez PA-C - Fully Assessed Prescriptions as of 08/22/2023 - apixaban (ELIQUIS) 5 mg tab(s) Take 1 tablet by mouth twice daily. - nitroglycerin sublingual (NITROQUICK) 0.4 mg SL tablet Dissolve 0.4 mg under the tongue every 5 minutes as needed for chest pain. - metoprolol tartrate, short acting, (LOPRESSOR) 25 mg tablet Take 12.5 mg by mouth twice daily. - amLODIPine (NORVASC) 2.5 mg tablet Take 2.5 mg by mouth once daily. - clopidogrel (PLAVIX) 75 mg tablet Take 1 tablet by mouth once daily. May transfer subsequent refills to preferred pharmacy - MAGNESIUM ORAL Take 500 mg by mouth once daily. - VITAMIN B COMPLEX-100 ORAL Take 1 tablet by mouth once daily. - ubidecarenone/vitamin E mixed (COQ10 SG 100 ORAL) Take 100 mg by mouth once daily. - latanoprost (XELPROS) 0.005 % ophthalmic emulsion Use 1 Drop in both eyes daily at bedtime. - cholecalciferol (VITAMIN D3) 1,000 unit tab tablet Take 1,000 Units by mouth once daily. - levothyroxine (SYNTHROID) 100 mcg tablet Take 100 mcg by mouth once daily. - CRESTOR 10 mg tablet Take 5 mg by mouth once daily. - omega-3 fatty acids 1,000 mg cap Take 2 g by mouth twice daily. - Cinnamon Bark 500 mg cap Take 1,000 mg by mouth once daily. - MULTI-VITAMIN ORAL Take 1 tablet by mouth once daily. Facility-Administered Medications as of 08/22/2023 - perflutren lipid microspheres 1.3 mL in NaCl (PF) 0.9% 10 mL injection (DEFINITY) - sodium chloride 0.9 % (flush) 10 mL (BD POSIFLUSH) Problem List As Of Date 08/22/2023 Noted Resolved Right inguinal hernia [K40.90] 01/06/2014 Mitral valve prolapse [I34.1] 08/08/2021 Non-rheumatic mitral regurgitation [I34.0] 08/08/2021 Coronary artery disease involving chemehuevi reyes*08/08/2021 S/P CABG x 3 [Z95.1] 08/08/2021 Hypertensive kidney disease with CKD (chronic k*08/08/2021 Chronic combined systolic and diastolic congest*06/25/2022 Paroxysmal atrial fibrillation (HCC) [I48.0] 06/25/2022 Severe mitral regurgitation [I34.0] 06/26/2022 Encounter Status:Closed by ANNA BOWLES on 08/22/23 [facility] 09-10-[address] Alegria reviewed patient's 09/05/2022 echocardiogram and reports that everything looks great. Message relayed by phone ([phone]) to patientMorena Hillman documented in this encounter [facility] 07-05-2022 Miscellaneous Notes Faxed over to Dr. Rodriguez's office Procedure note, D/c summary, LB OPD and ECHO and EKG from after procedure documented in this encounter [facility] 07-05-2022 History of Presen t illness Narrative Images from the original note were not included. [facility] [place] [facility] Department of Cardiovascular Medicine SECTION OF INTERVENTIONAL CARDIOLOGY OUTPATIENT VISIT DATE July 05, 2022 OUTPATIENT VISIT TYPE ESTABLISHED PRIMARY CARE PHYSICIAN: Hilton Jay DO (Romero) [id number] [facility] [address] [place] [address] REFERRING PHYSICIAN: Madeline Nunez [facility] Jolene Christiansen [facility] [address] CHIEF COMPLAINT: Patient presents with: Hospital F/U HISTORY OF PRESENT ILLNESS: Mr. Almeida is a 77 year old male who presents today for follow-up visit status post successful transcatheter mitral valve repair with two XTr MitraClip devices on 06/26/22. PAST CARDIAC HISTORY: See HPI PAST MEDICAL HISTORY Diagnosis Date Benign neoplasm of colon CAD (coronary artery disease) Cataract Congestive heart failure (HCC) Hiatal hernia HLD (hyperlipidemia) Hypertension Hypothyroidism MVP (mitral valve prolapse) Prostate cancer (HCC) s/p prostatectomy 3 years ago Prostate disease PAST SURGICAL HISTORY Procedure Laterality Date CABG (3) VEIN GRAFTS & ARTERIAL GRAFT(S) 96 CORONARY ARTERY BYPASS GRAFT OPTX HUMERAL SHFT FX W/PLATE/SCREWS W/WOCERCLAGE 07/06 ORIF humerus RPR 1ST INGUN HRNA AGE 5 YRS/> REDUCIBLE 01-21- RIGHT TONSILLECTOMY HX SOCIAL HISTORY Social History Tobacco Use Smoking status: Never Smokeless tobacco: Never Substance Use Topics Alcohol use: Yes Comment: occasional Drug use: Not Currently FAMILY HISTORY Problem Relation Age of Onset Coronary Artery Disease Mother Heart Attack Mother Coronary Artery Disease Sister CABG Coronary Artery Disease Brother CABG Coronary Artery Disease Brother CABG ALLERGIES: ALLERGIES Allergen Reactions Bees Hives, Anaphylaxis Niacin Unknown Ramipril Angioedema MEDICATIONS: Current Outpatient Medications Medication Sig apixaban (ELIQUIS) 5 mg tab(s) Take 1 tablet by mouth twice daily. nitroglycerin sublingual (NITROQUICK) 0.4 mg SL tablet Dissolve 0.4 mg under the tongue every 5 minutes as needed for chest pain. metoprolol tartrate, short acting, (LOPRESSOR) 25 mg tablet Take 12.5 mg by mouth twice daily. amLODIPine (NORVASC) 2.5 mg tablet Take 2.5 mg by mouth once daily. clopidogrel (PLAVIX) 75 mg tablet Take 1 tablet by mouth once daily. May transfer subsequent refills to preferred pharmacy MAGNESIUM ORAL Take 500 mg by mouth once daily. VITAMIN B COMPLEX-100 ORAL Take 1 tablet by mouth once daily. ubidecarenone/vitamin E mixed (COQ10 SG 100 ORAL) Take 100 mg by mouth once daily. latanoprost (XELPROS) 0.005 % ophthalmic emulsion Use 1 Drop in both eyes daily at bedtime. cholecalciferol (VITAMIN D3) 1,000 unit tab tablet Take 1,000 Units by mouth once daily. levothyroxine (SYNTHROID) 100 mcg tablet Take 100 mcg by mouth once daily. CRESTOR 10 mg tablet Take 5 mg by mouth once daily. omega-3 fatty acids 1,000 mg cap Take 2 g by mouth twice daily. Cinnamon Bark 500 mg cap Take 1,000 mg by mouth once daily. MULTI-VITAMIN ORAL Take 1 tablet by mouth once daily. Current Facility-Administered Medications Medication Dose Route Frequency perflutren lipid microspheres 1.3 mL in NaCl (PF) 0.9% 10 mL injection (DEFINITY) INTRAVENOUS DIRECTED PRN sodium chloride 0.9 % (flush) 10 mL (BD POSIFLUSH) 10 mL INTRAVENOUS DIRECTED PRN REVIEW OF SYSTEMS: HEENT: Denies recent severe headaches, visual changes, difficulty swallowing. GASTROINTESTINAL: Denies melena, hematochezia, heartburn. GENITOURINARY: Denies hematuria. MUSCULOSKELETAL: Denies claudication or muscle myalgias. NEUROLOGIC: Denies unilateral paralysis, slurred speech. SKIN: Denies skin ulcers or lesions. HEMATOLOGICAL: Denies gingival bleeding, or prolonged epistaxis. ENDOCRINE:Denies heat or cold intolerance, excessive thirst or urination. All Other Remaining ROS negative. PHYSICAL EXAMINATION: BP 150/75 Pulse 62 Ht 5' 10 (1.78m) Wt 176 lb (79.8kg) BMI 25.25 kg/(m^2). General:well developed Skin:warm and dry Neck:no JVD, no carotid bruits, thyroid not palpable, no tenderness Lungs:clear to auscultation and no rales Heart:regular rhythm, S1, S2 normal, no S3, no S4, no heaves, no thrills, and no murmur PV Pulses:pulses intact, no varicosities Abdomen:soft, non-tender, bowel sounds present Extremities:normal exam Edema Scale:no Musculoskeletal:Normal gait and ambulation, Able to undergo exercise testing and/or participate in an exercise program. Neurologic:Oriented to time, place and person, Mood & Affect: appropriate CARDIOVASCULAR MEDICINE TESTING: Electrocardiogram: SINUS BRADYCARDIA LEFT AXIS DEVIATION NONSPECIFIC INTRAVENTRICULAR BLOCK (Unchanged from previous, AL 168, QRS 126) I have personally reviewed the Electrocardiogram. HISTORY Сергей Almeida is an 77 year old male with pmhx of: Severe MR pAF (eliquis) CAD s/p CABG and PCI LCx 08/2021 HLD HTN CKDII Prostate cancer s/p prostatectomy Hypothryoidism ASSESSMENT/ IMPRESSION Degenerative MR demonstrated on DARCY. He originally presented in July 2021 with severe MR without symptoms. His [facility] demonstrated LM lesion with we performed PCI August 2021 with follow up for DALIA. We opted to have him follow up clinically given no left-sided symptoms. 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 Regurgitant orifice area (PISA) is 0.40 cm . P2 prolapse. Large (1.4cm) highly mobile echodensity (likely thrombus / complex atheroma) in the proximal descending aorta (clip 73). On 06/26/22, he underwent successful transcatheter mitral valve repair with two XTr MitraClip devices Post procedure echo: EF = 60 5% Percutaneous [id number] repair of the mitral valve with 2 clips. There is trace mitral valve regurgitation. The peak gradient is 10 mmHg and the mean gradient is 3 mmHg. Prior Pre procedure EKG NSR, IVB, HR 61, AL 158, qrs 132 Post procedure EKG NSR, IVB, HR 67, pr 152, qrs 134 Today 07/05/22, he presents doing well. He has been walking and his noticed he is no longer having to take naps. He also noticed he is no longer short of breath. Right groin incision well healed, mild ecchymosis He denies chest pain, shortness of breath, dyspnea on exertion, orthopnea, PND, palpitations, lightheadedness, syncope, claudication, leg swelling, cough, and wheezing. PLAN AND RECOMMENDATIONS: Aspirin none DAPT Plavix 75mg daily AC Eliquis 5 mg BID SBE prophylaxis. Beta Rigo: Lopressor 12.5 mg BID ACEI/ARB/ARNI none SGLT2 inhibitor none Diuretic: none Aldosterone antagonist: none Statin Crestor 5 mg daily Additional Medications: Amlodipine 2.5mg daily Device therapy: n/a - Advised monitor BP and follow locally - Cardiac rehab ordered locally Follow up/Disposition: Follow up with Dr. Alegria 09/05/22 I spent a total of 50 minutes on the date of the service which included preparing to see the patient, [id number] patient care, completing clinical documentation, performing a medically appropriate examination, counseling and educating the patient/family/caregiver, ordering medications, tests, or procedures, and communicating results to the patient/family/caregiver. Reina Rodríguez PA-C documented in this encounter [facility] 07-02-2022 Miscellaneous Notes Call to patient Reports that he took that some honey and has had no further issues. He will keep the office posted He has follow up on Friday PT stated he has developed a small dry cough and wanted to be sure that it was okay. S/P MV CLIP 06/26 He would like a call back to discuss [phone] documented in this encounter [facility] 06-26-2022 History of Presen t illness Narrative NAME: Сергей Almeida DATE: June 26, 2022 STAFF PHYSICIAN: 1. Dr. Abhishek Alegria ASSISTING PHYSICIANS: 1. Dr. Chauncey Pérez DIAGNOSES: Symptomatic severe Primary mitral regurgitation PROCEDURES: Successful transcatheter mitral valve repair with two XTr MitraClip devices PROCEDURAL DETAILS: The patient was counseled extensively regarding the risks, benefits, and alternatives to the procedure and after answering all questions, the patient yielded informed consent. The patient was thereafter brought to the hybrid operating room. Sterile technique was used throughout the case. All vascular access was obtained by modified Seldinger technique. Preprocedural antibiotic was administered intravenously. General anesthesia was used throughout the case. A 4/5F sheath was placed at the right radial artery and a 5F pigtail catheter was advanced to the descending aorta into the non-coronary cusp for hemodynamic monitoring. An 8F sheath was placed at the right femoral vein after preclosure x 2 and an additional 5F sheath was placed inferiorly in the right femoral vein for additional venous access. IV heparin was administered to a goal ACT of 250-300 seconds. Using an 0.032 guidewire, an 8F Arriaza sheath was advanced into the right atrium. Intravenous heparin was administered to maintain an ACT between 250-350 seconds. Then a Brockenbrough needle was used to puncture the atrial septum, using both fluoroscopy and DARCY for guidance. The puncture was made at a height of approximately 4-5 cm and posteriorly. Once the septum was punctured, the Arriaza sheath was advanced to the left atrium where the mean pressure was measured to be 14 mm Hg with V waves to 30 mmHg (Ao 106/52/71). An 0.032 [place] Guide wire was then advanced into the left atrium. The right femoral vein and the interatrial septum were dilated serially and then the 24F MitraClip delivery sheath was advanced into the left atrium. Using both fluoroscopy and DARCY, we placed two XTr devices at P2 - A2. Final mean left atrial pressure was 11 with V waves to 19 mmHg (Ao 132/69/94). Final mean trans-mitral gradient by DARCY was 4mmHg. Final residual MR grade was trivial. All equipment was then removed. IV protamine was administered to reverse anticoagulation. The right femoral vein was closed with the 2 predeployed perclose sutures. A figure of eight stich was placed at the puncture site at the right femoral vein, and hemostasis was achieved with manual compression to the inferior femoral vein access site. The radial artery sheath was removed and a Vasc band was placed with 12 cc of air. The patient was extubated in the operating room and transferred to [facility] stepdown unit in stable condition. IMPRESSION: Successful transcatheter mitral valve repair with placement of two XTr MitraClip devices RECOMMENDATIONS: 1. Continue home clopidogrel, may resume apixaban tonight provided hemostasis 2. Perioperative antibiotics for 5 days 3. Transthoracic echocardiogram post-procedure 4. Bedrest for 6 hours 5. No heavy lifting >10lbs and no submerging groin in water for 1 week 6. Figure of 8 stitch to be removed following bedrest DISPOSITION: Patient was transferred to [facility] stepdown unit for further management. Chauncey Pérez MD Interventional Media Arts Professor June 26, 2022 8:44 AM [facility] STAFF PHYSICIAN NOTE OF PERSONAL INVOLVEMENT IN CARE I have reviewed the documentation above obtained and documented by the resident and have reviewed and updated the problem list as appropriate. I have personally participated in the huynh component and physical exam and have discussed the case and management of the patient's care. The following comments revise or confirm relevant huynh components. STAFF PHYSICIAN: Abhishek Alegria MD PAGER: [phone] DATE OF SERVICE: June 26, 2022 TIME OF SERVICE: 2:23 PM documented in this encounter [facility] 06-25-2022 Instructions Amber Guillermo APRN.[facility] - 06/25/2022 10:42 AM EDT Сергей Almeida is scheduled for transcatheter mitral valve repair on 06/25/[address] Alegria TODAY, Instructed to go to Desk J1-1 to register for the procedure. Hibiclens and Listerine provided. Explained to patient the need to use the Hibiclens soap and Listerine mouth wash the night before and morning of the procedure. TONIGHT, Nothing to eat or drink after midnight. Okay for to take the following medications with sips of water in AM: Plavix Amlodipine Levothyroxine metoprolol TOMORROW, Report to Desk J1-2 at 6:30am Amber Guillermo APRN.[facility] DIRECTOR documented in this encounter [facility] 06-25-2022 History of Presen t illness Narrative Images from the original note were not included. [facility] [place] [facility] Department of Cardiovascular Medicine SECTION OF INTERVENTIONAL CARDIOLOGY OUTPATIENT VISIT DATE June 25, 2022 OUTPATIENT VISIT TYPE ESTABLISHED FOLLOW UP Primary Exerciser: Dr. Alegria Primary Care Physician: Hilton Jay DO Chief Complaint: Patient here for cardiac evaluation related to valvular disease History of Present Illness: Patient is a 77 year old male who presents for follow up an evaluation related to transcatheter mitral valve therapies. SUBJECTIVE [place] CARDIOMYOPATHY QUESTIONNAIRE (KCCQ-12) Activity: A. Showering/bathing: Extremely limited Quite a bit limited Moderately limited Slightly limited Not at all limited Limited for other reasons or did not do the activity B. Walking 1 block on level ground: Extremely limited Quite a bit limited Moderately limited Slightly limited Not at all limited Limited for other reasons or did not do the activity C.Hurrying or jogging (as if to catch a bus): Extremely limited Quite a bit limited Moderately limited Slightly limited Not at all limited Limited for other reasons or did not do the activity 2. Over the past 2 weeks, how many times did you have swelling in your feet, ankles or legs when you woke up in the morning? Every morning 3 or more times per week but not every day 1-2 times per week less than once a week never over the past 2 weeks 3. Over the past 2 weeks, on average, how many times did you has fatigue limited your ability to do what you wanted? All of the time Several times per day At least once per day 3 or more times per week but not every day 1-2 times per week less than once a week never over the past 2 weeks 4. Over the past 2 weeks, on average, how many times has shortness of breath limited your ability to do what you wanted? All of the time Several times per day At least once per day 3 or more times per week but not every day 1-2 times per week less than once a week never over the past 2 weeks 5. Over the past 2 weeks, on average, how many times have your been forced to sleep sitting up in a chair or with at least 3 pillows to prop you up because of shortness of breath? Every night 3 or more times per week but not every day 1-2 times per week less than once a week never over the past 2 weeks 6. Over the past 2 weeks, how much has your heart failure limited your enjoyment of life? It has extremely limited my enjoyment of life it has limited my enjoyment of life quite a bit it has moderately limited my enjoyment of life It has slightly limited my enjoyment of life It has not limited my enjoyment of life at all 7. If you had to spend the rest of your life with your heart failure the way it is right now, how would you feel about this? Not at all satisfied Mostly dissatisfied Somewhat satisfied Mostly satisfied Completely satisfied 8. How much does your heart failure affect your lifestyle? Please indicated how your heart failure may have limited your participation in the following activities over the past 2 weeks? A. Hobbies, recreational activities Severely limited Limited quite a bit Moderately limited Slightly limited Did not limit at all Does not apply or did not do for other reasons. 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 C. Visiting family or friends out of your home Severely limited Limited quite a bit Moderately limited Slightly limited Did not limit at all ROS POSITIVES IN BOLD PAIN ASSESSMENT: complaints of acute or chronic pain GENERAL: fevers, chills, night sweats, weight gain or loss HEENT: changes in vision, hearing, nose bleeds, or bleeding gums NECK: neck pain, stiffness, or swelling, or swollen lymph nodes RESPIRATORY: shortness of breath, LECHUGA, cough, wheezing, or hemoptysis CARDIOVASCULAR: chest pain, palpitations, claudication, orthopnea, or edema GI: difficulty swallowing, nausea, vomiting, diarrhea, constipation, or melena : frequency, urgency, or burning, and hematuria MUSCULOSKELETAL: joint pain, swelling, or stiffness SKIN: rashes, lesions, or tears PSYCH: sleep disturbance, mood disorder, or recent psychosocial stressors HEMATOLOGY/LYMPHOLOGY: prolonged bleeding or easy bruising ENDOCRINE: heat or cold intolerance, polydipsia or polyphagia NEURO: syncope, seizures, or numbness or tingling of hands or feet OBJECTIVE: Physical Examination: BP 152/76 (BP Site: Left Arm) Pulse (!) 56 Ht 177.8 cm (5' 10) Wt 78.5 kg (173 lb) SpO2 97% BMI 24.82 kg/m General: No acute distress, pleasant mood and cooperative; ambulates without assistive devices Skin: warm, dry, and intact; no rashes or lesions noted Neck: No JVD or carotid bruits, carotids have normal upstroke; no palpable thyromegaly Lungs: Breath sounds clear throughout, no crackles or wheezing Heart: Regular rhythm, PMI not displaced, S1/S2 normal, no S3/S4, +systolic murmur, no edema noted Abdomen: Soft nontedner, +BSx4 Extremities: Distal pulses intact, MAEx4 Musculoskeletal: No deformities Neurologic/Psychiatric: Oriented to time, place & person and no gross focal neurologic deficits CARDIOVASCULAR MEDICINE TESTING Echo: 08/08/21 CONCLUSIONS: - Exam indication: Pre-up Mitral Clip - The left ventricle is mildly dilated. Left ventricular systolic function is hyperdynamic. EF = 74 5% (2D biplane) Left ventricular diastolic function was not evaluated due to >2+ MR. - The right ventricle is normal in size. Right ventricular systolic function is normal. - The left atrial cavity is dilated. 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 Regurgitant orifice area (PISA) is 0.41 cm . MR RV by PISA 93 mL (likely overestimated d/t MR predominance in late systole). MR RV by Quant Doppler 46 mL. - Estimated right ventricular systolic pressure is 43 mmHg consistent with mild pulmonary hypertension. Estimated right atrial pressure is 3 mmHg based on IVC assessment. - The patient has not had a prior CC echocardiographic exam for comparison. DARCY: 08/08/21 Impression CONCLUSIONS: - Exam indication: Mitral Valve Assessment - The left ventricle is normal in size. Left ventricular systolic function is normal. EF = 60 5% (visual est.) - The right ventricle is normal in size. Right ventricular systolic function is normal. - The left atrial cavity is dilated. - The right atrial cavity is dilated. 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 Regurgitant orifice area (PISA) is 0.40 cm . P2 prolapse. - There is no patent foramen ovale as detected by Doppler. - Large (1.4cm) highly mobile echodensity (likely thrombus / complex atheroma) in the proximal descending aorta (clip 73). - Exam was compared with the prior CC echocardiographic exam performed on 08/08/21. New aortic findings as above - otherwise, similar findings. CATH: 09/14/22 AUC: One or more stenoses in saphenous vein graft(s). CCS anginal score III or IV with intermediate-risk findings on noninvasive testing. Maximal anti-ischemic medical therapy. AUC score = 8. Clinical History: Mr. Almeida is a 76 year old male with a history of CAD s/p CABG [SWANSON-LAD, SVG-Diag, SVG-OM (occluded)], severe MR due to P2 prolapse, who was being evaluated for mitral valve repair, found to have occluded OM graft and severe ostial left main disease. He is here for direct PCI of the left main into the LCx prior to percutaneous mitral valve edge to edge repair. + + PCI SUMMARY + + Procedures Performed: 1. Successful IVUS guided PCI of the ostial left main into LCx with a 4.0 x 15 mm Xience LORENZA; post-dilated with a 4.5 x12 mm NC balloon. PROCEDURAL NARRATIVE: We engaged the LMCA with the 6 Fr JL 3.5 short tip guide catheter. After administering heparin to a goal ACT of >250s, we advanced a Addi blue coronary wire to the distal LCx. PTCA with a 2.0 x 8 mm semi-compliant balloon was performed, followed by PTCA with a 3.0 x 10 mm [place] cutting balloon. Stenting with a 4.0 x 15 mm Xience LORENZA was performed. Intracoronary imaging with [place] IVUS revealed optimal landing of the stent at the left main ostium, no evidence of edge dissection, and suboptimal expansion. Post-dilation with a 4.5 x 12 mm NC balloon was performed. Final angiography showed no evidence of dissection or perforation. There was CARLOTA 3 flow and 0% residual stenosis. + + PROCEDURAL OUTCOME + + 1 Vessel Successful PCI 4D gated CTA: 08/08/21 IMPRESSION: 1. Dedicated 4D dynamic imaging of the mitral valve demonstrates a bileaflet mitral valve with prolapse of the posterior leaflet. The leaflets are mildly thickened, although not calcified. There is no significant annular or sub-annular calcification. Annular measurements as per the body of the report. Using the end-systolic phase, and simulating TMVR with a 23 mm John S3 valve with 1/3 of the valve above the annular plane (atrial), the estimated curtis-LVOT area is 2.1 cm2. 2. Normal caliber thoracic aorta with aortic atherosclerotic changes as described in the body of the report. No acute aortic pathology identified. 3. Patient with coronary artery disease status post CABG. One of the bypass grafts to the obtuse marginal branch is occluded. I have personally reviewed the Electrocardiogram, Laboratory Testing, Chest Xray, Echocardiogram, Cardiac Catheterization, CT Cardiac w/ Contrast, and DARCY. HISTORY Сергей Almeida is an 77 year old male with pmhx of: moderate MR mitral valve prolapse pAF (eliquis) CAD s/p CABG and PCI LCrx 08/2021 HLD HTN CKDII Prostate cancer s/p prostatectomy hypothryoidism ASSESSMENT/PLAN: (Z01.810) Preop cardiovascular exam (primary encounter diagnosis) (I34.0) Nonrheumatic mitral valve regurgitation (I25.10) 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 (I48.0) Paroxysmal atrial fibrillation (HCC) Degenerative MR demonstrated on DARCY. He originally presented in July 2021 with severe MR without symptoms. His [facility] demonstrated LM lesion with we performed PCI August 2021 with follow up for DALIA. We opted to have him follow up clinically given no left-sided symptoms. He was admitted to a local hospital in April with new atrial fibrillation and heart failure exacerbation.NYHA II, LECHUGA, Faitgue. Plan is to proceed with DALIA for his mitral valve. TTE locally reviewed. Overall LV function / size are stable. But RVSP is a little higher and he had a recent hospital admission w AFib and HF. So I think we should fix his MV now w a MitraClip. Сергей Almeida is scheduled for transcatheter mitral valve repair on 06/25/[address] Alegria TODAY, Instructed to go to exsulink J1-1 to register for the procedure. Hibiclens and Listerine provided. Explained to patient the need to use the Hibiclens soap and Listerine mouth wash the night before and morning of the procedure. TONIGHT, Nothing to eat or drink after midnight. Okay for to take the following medications with sips of water in AM: Plavix Amlodipine Levothyroxine metoprolol TOMORROW, Report to Desk J1-2 at 6:30am Dental clearance: 05/27/22 PPM: n/a Anticoagulation: Eliquis on hold Contrast Allergy: n/a Amber Guillermo APRN.[facility] DIRECTOR documented in this encounter [facility] 06-25-2022 History of Presen t illness Narrative Images from the original note were not included. 949Cardiothoracic Anesthesiology Preoperative Assessment Service Date: 06/25/2022 Service Time: 9:15 AM Primary Care Physician: Hilton Jay DO, DO Subjective Patient Entered Data: Cardiothoracic Surgery Pre-Op Questionnaire 06/22/2022 Previous anesthesia problems No Family history anesthesia problems No Blood consent Yes Esophageal history Hiatal Hernia Implanted devices No History difficult airway No Airway surgery No Ongoing pain issues No Heparin intolerance No Daily alcohol use No Illicit drug use No Scheduled procedure: Mitraclip Surgeon: Elvira Scheduled date: 06/26/2022 HPI: Mr Almeida is a 77 year old male with a PMH of pAF (Apixaban), mod MR, CHF, CAD s/p CABG x3 1995, PCI (Lcx, 08/2021), CKD 2, HTN, HLD, hypothyroidism, prostate cancer s/p prostatectomy. At present, patient reports dyspnoea, no chest pain, dizziness or syncope. Only advised Aspirin, Metoprolol, Levothyroxine, Amlodipine and Clopidogrel on DOS. The patient reports being told to take his Clopidogrel as usual by primary team, including on day of surgery. Anesthetic risks and benefits discussed. All questions answered. Review no known heparin intolerance anticoagulant/antiplatelet medication(s) - Patient is taking anticoagulant and/or antiplatelet medication Anticoagulation / antiplatelet medication plan: Last dose of Apixaban on Sat 22 June. no non-cardiac IEDs present esophageal disorder(s) - Patient reports the following contraindications: hiatal hernia. The patient's last endoscopy was Several years ago, tolerates food and liquid. They are able to tolerate food blood transfusion consented -. No resulted type & screen to review COVID-19 Immunization Status COVID-19 VACCINE (Series Information) Completed 11/24/2021 Outside Immunization: Covid (Moderna) 11/23/2021 Outside Immunization: COVID-19, mRNA, LNP-S, bivalent booster, PF, 50 mcg/0.5 mL or 25mcg/0.25 mL dose 12/19/2020 Outside Immunization: COVID-19, mRNA, LNP-S, PF, 100 mcg/0.5mL dose or 50 mcg/0.25mL dose Only the first 3 history entries have been loaded, but more history exists. The patient has the following: ACTIVE PROBLEM LIST Right Inguinal Hernia Mitral Valve Prolapse Non-Rheumatic Mitral Regurgitation Coronary Artery Disease Involving [place] Coronary Artery of [place] Heart Without Angina Pectoris S/P Cabg X 3 Hypertensive Kidney Disease With Ckd (Chronic Kidney Disease) Stage II Chronic Combined Systolic and Diastolic Congestive Heart Failure (Hcc) Paroxysmal Atrial Fibrillation (Hcc) PAST MEDICAL HISTORY Diagnosis Date Benign neoplasm of colon CAD (coronary artery disease) Cataract Congestive heart failure (HCC) Hiatal hernia HLD (hyperlipidemia) Hypertension Hypothyroidism MVP (mitral valve prolapse) Prostate cancer (HCC) s/p prostatectomy 3 years ago Prostate disease PAST SURGICAL HISTORY Procedure Laterality Date CABG (3) VEIN GRAFTS & ARTERIAL GRAFT(S) 96 CORONARY ARTERY BYPASS GRAFT OPTX HUMERAL SHFT FX W/PLATE/SCREWS W/WOCERCLAGE 07/06 ORIF humerus RPR 1ST INGUN HRNA AGE 5 YRS/> REDUCIBLE 01-21-14 RIGHT TONSILLECTOMY HX FAMILY HISTORY Problem Relation Age of Onset Coronary Artery Disease Mother Heart Attack Mother Coronary Artery Disease Sister CABG Coronary Artery Disease Brother CABG Coronary Artery Disease Brother CABG Social History Tobacco Use Smoking status: Never Smokeless tobacco: Never Substance Use Topics Alcohol use: Yes Comment: occasional Drug use: Not Currently Prior to Admission medications as of 11/22/21 1326 Medication Sig Last Dose Taking sodium chloride 0.9 %, flush, (BD POSIFLUSH) syringe Inject 2-10 mL intravenously as directed. For Echo procedure apixaban (ELIQUIS) 5 mg tab(s) Take by mouth. metoprolol tartrate, short acting, (LOPRESSOR) 25 mg tablet Take 12.5 mg by mouth twice daily. amLODIPine (NORVASC) 2.5 mg tablet Take 2.5 mg by mouth once daily. aspirin, enteric coated (ASPIRIN, ENTERIC COATED) 81 mg EC tablet Take 1 tablet by mouth once daily. clopidogrel (PLAVIX) 75 mg tablet Take 1 tablet by mouth once daily. May transfer subsequent refills to preferred pharmacy MAGNESIUM ORAL Take 500 mg by mouth once daily. VITAMIN B COMPLEX-100 ORAL Take 1 tablet by mouth once daily. furosemide (LASIX) 40 mg tablet Take 40 mg by mouth once daily. ubidecarenone/vitamin E mixed (COQ10 SG 100 ORAL) Take 100 mg by mouth once daily. latanoprost (XELPROS) 0.005 % ophthalmic emulsion Use 1 Drop in both eyes daily at bedtime. cholecalciferol (VITAMIN D3) 1,000 unit tab tablet Take 1,000 Units by mouth once daily. levothyroxine (SYNTHROID) 100 mcg tablet Take 100 mcg by mouth once daily. CRESTOR 10 mg tablet Take 5 mg by mouth once daily. omega-3 fatty acids 1,000 mg cap Take 2 g by mouth twice daily. Cinnamon Bark 500 mg cap Take 1,000 mg by mouth once daily. MULTI-VITAMIN ORAL Take 1 tablet by mouth once daily. No medication comments found. ALLERGIES Allergen Reactions Bees Hives, Anaphylaxis Niacin Unknown Ramipril Angioedema Objective Pain Assessment: Vitals: There were no vitals taken for this visit. Diagnostic tests reviewed for today's visit: Lab Value Units Date High Low HB No results within date range. HCT No results within date range. WBC No results within date range. PLT No results within date range. NA No results within date range. K No results within date range. GLUC No results within date range. BUN No results within date range. CREAT No results within date range. PTSEC No results within date range. INR No results within date range. APTT No results within date range. ALT No results within date range. AST No results within date range. TBILI No results within date range. TSH No results within date range. Lab Value Units Date High Low HCGQT No results within date range. UHCG No results within date range. HCG, BODY* No results within date range. Lab Value Units Date High Low ABORHD No results within date range. ABSCREEN No results within date range. Hemoglobin A1C (%) Date Value 08/08/2021 6.0 Recent Results (from the past 8760 hour(s)) ECG COMPLETE Collection Time: 06/25/22 8:09 AM Impression NORMAL SINUS RHYTHM LEFT AXIS DEVIATION NONSPECIFIC INTRAVENTRICULAR BLOCK ABNORMAL ECG ECHO TRANSESOPHAGEAL Collection Time: 08/08/21 2:48 PM Impression CONCLUSIONS: - Exam indication: Mitral Valve Assessment - The left ventricle is normal in size. Left ventricular systolic function is normal. EF = 60 5% (visual est.) - The right ventricle is normal in size. Right ventricular systolic function is normal. - The left atrial cavity is dilated. - The right atrial cavity is dilated. 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 Regurgitant orifice area (PISA) is 0.40 cm . P2 prolapse. - There is no patent foramen ovale as detected by Doppler. - Large (1.4cm) highly mobile echodensity (likely thrombus / complex atheroma) in the proximal descending aorta (clip 73). - Exam was compared with the prior echocardiographic exam performed on 08/08/21. New aortic findings as above - otherwise, similar findings. * * * Final * * * XR CHEST 2V FRONTAL/LAT Collection Time: 08/08/21 1:17 PM Impression IMPRESSION: As above [employer] Teacher: ALISSA Transcribe Date/Time: Aug 08 2021 3:29P Dictated by : BASHIR CRUZ MD This examination was interpreted and the report reviewed and electronically signed by: BASHIR CRUZ MD on Aug 08 2021 3:30PM EST ECHO Collection Time: 08/08/21 9:13 AM Impression CONCLUSIONS: - Exam indication: Pre-up Mitral Clip - The left ventricle is mildly dilated. Left ventricular systolic function is hyperdynamic. EF = 74 5% (2D biplane) Left ventricular diastolic function was not evaluated due to >2+ MR. - The right ventricle is normal in size. Right ventricular systolic function is normal. - The left atrial cavity is dilated. 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 Regurgitant orifice area (PISA) is 0.41 cm . MR RV by PISA 93 mL (likely overestimated d/t MR predominance in late systole). MR RV by Quant Doppler 46 mL. - Estimated right ventricular systolic pressure is 43 mmHg consistent with mild pulmonary hypertension. Estimated right atrial pressure is 3 mmHg based on IVC assessment. - The patient has not had a prior CC echocardiographic exam for comparison. * * * Final (Updated) * * * Assessment No problem-specific Assessment & Plan notes found for this encounter. ANESTHESIA FINDINGS: Intubation History: No history of difficult intubation. No abnormal airway history Significant Anesthesia Considerations: none Airway History: No history of difficult airway No abnormal airway history Prepared for Surgery: optimally prepared for surgery, pending day of surgery. The Following Tests/Procedures Have Been Initiated: No orders of the defined types were placed in this encounter. ASA Class: 3 Planned Anesthetic: general I - PHYSICAL EVALUATION AIRWAY Patient intubated: No. Tracheostomy tube not present Mallampati: III. TM distance: >3 FB. Neck ROM: full ROM without neurological symptoms. Mouth opening: adequate. Short neck: no. Thick neck: no DENTAL Dental findings: teeth intact. II - ANESTHESIA PLAN ASA Score: 3 Anesthetic Plan: general Airway type: ETT Beta Rigo Monitoring Plan Post Procedure Analgesic Plan Informed Consent Anesthetic risks, benefits, alternatives, personnel and consent discussed: yes. Patient / Responsible Libertarian agrees to proceed: yes Patient / Surrogate agrees to blood products: Yes Discussed the possibility of lip / dental damage: yes Instructions Given to Patient: Instructions located in the after visit summary. Patient given verbal and written preop instructions and voices comprehension and compliance. Signature: Chris Kraus MD Patient Name: Сергей Almeida Date: June 25, 2022 Time: 9:15 AM Pager/Contact #: documented in this encounter [facility] 06-25-2022 History of Presen t illness Narrative Radiology Service Progress Note PATIENT NAME: Сергей Almeida DATE OF SERVICE: June 25, 2022 TIME: 8:15 AM PATIENT IDENTITY VERIFICATION COMPLETED USING TWO (2) IDENTIFIERS: Name and Date of confirmed by patient verbally. FALL SCREENING: Has the patient had 2 falls in the last year or 1 fall with injury or currently using an Ambulatory Assistive Device (Walker, Cane, Wheelchair, Crutches, etc.)? No PATIENT GENDER DATA: Male PATIENT RELEVANT IMPLANT DATA REVIEWED: Not Applicable RADIOLOGY DEPARTMENT: General X-ray: Exam(s) Completed: Chest X-Ray PERIPHERAL IV DATA: Not applicable SIGNED BY: RT Geoffrey(R) June 25, 2022 8:15 AM documented in this encounter [facility] 06-11-2022 Miscellaneous Notes Explained that there have been no cancellations and that his OR date will remain the same. He is on the list to be moved to a sooner date if there is a cancellation. Explained if he is discharged the same day as the procedure, he will follow up the next morning. Reiterated I do not know if he will stay overnight or be d/c'd the came day. He should stop his eliquis 3 days prior to the OR date. Me Pt returned call to Amber regarding moving up procedure documented in this encounter [facility] 06-04-2022 History of Presen t illness Narrative Images from the original note were not included. documented in this encounter [facility] 05-24-2022 Miscellaneous Notes Office faxed dental form to dentist office [phone] per pt request documented in this encounter [facility] 05-08-2022 Miscellaneous Notes Spoke with patient's spouse and they will go ahead and get their local doctor to fax all the paperwork and send the CD to our office documented in this encounter [facility] 05-04-2022 Progress note Note Date/Time May 04, 2022 7:46am [facility] Medical Records Department [address] [place] [id number] Progress Note - Hospitalist 05/04/22 0746 MR#: [id number] Acct: [id number] Name: СЕРГЕЙ ALMEIDA Rep #:[id number] : 1945 77 From: Jose eLmus MD PCP: Dr. Hilton Jay, DO Status:AD M JEFFREY Location: [place] [address] Reason for Visit Reason for Visit: Diagnoses Hyperlipidemia, unspecified (05/03/22) Essential (primary) hypertension (05/03/22) Atherosclerotic heart disease of chemehuevi coronary artery without angina pectoris (05/03/22) Pulmonary hypertension, unspecified (05/03/22) Nonrheumatic mitral (valve) insufficiency (05/03/22) Unspecified atrial fibrillation (05/03/22) Subjective Subjective Patient was seen in consultation by cardiology Dr. Paula recommended discontinuation of aspirin and increasing Eliquis dose to 5 mg p.o. twice daily. Patient also to undergo DARCY as outpatient to evaluate DARCY as outpatient to evaluate his mitral regurgitation Objective Data Objective Data Vital Signs: Vital Signs Temp Pulse Resp BP Pulse Ox O2 Del Method 97.7 F L 65 18 148/76 H 94 Room Air 05/04/22 03:10 05/04/22 03:10 05/04/22 03:10 05/04/22 03:10 05/04/22 03:10 05/04/22 03:15 Oxygen Delivery Method Room Air Weight: 79.1 kg Body Mass Index (BMI) 25.0 Intake & Output: Intake and Output for Last 24 Hours 05/02/22 05/03/22 05/04/22 23:59 23:59 23:59 Intake Total 1928.33 / 1928.33 Balance 1928.33 / 1928.33 Lab / Micro Data Result Diagrams: 05/04/22 06:37 05/04/22 06:37 Labs: Laboratory Results - last 24 hr 05/03/22 09:05: WBC 10.3, RBC 5.38, Hgb 16.4, Hct 50.4, MCV 93.7, MCH 30.5, MCHC32.5, RDW Std Deviation 50.5 H, RDW Coeff of Darian 14.6, Plt Count 244, MPV 10.7 05/03/22 09:05: PT 13.5, INR 1.1, APTT 25.9 05/03/22 09:05: Sodium 143, Potassium 3.8, Chloride 106, Carbon Dioxide 27.0, Anion Gap 10, BUN 21 H, Creatinine 1.34 H, Estim Creat Clear Calc 46.15, Est GFR(MDRD) Af Amer 66, Est GFR (MDRD) Non-Af 55 L, BUN/Creatinine Ratio 15.7, Glucose 125 H, Calcium 9.6, Total Bilirubin 1.00, AST 28, ALT 35, Alkaline Phosphatase 50, Troponin I High Sens 13, Total Protein 7.5, Albumin 3.7, Globulin 3.8, Albumin/Globulin Ratio 1.0, Lipase 143 05/03/22 12:13: Troponin I High Sens 13 05/03/22 12:13: TSH 1.95 05/03/22 14:40: Troponin I High Sens 14 05/04/22 06:37: WBC 9.6, RBC 4.27 L, Hgb 13.0, Hct 40.6, MCV 95.1 H, MCH 30.4, MCHC 32.0, RDW Std Deviation 51.2 H, RDW Coeff of Darian 14.6, Plt Count 188, MPV 10.8, Immature Gran % (Auto) 0.300, Neut % (Auto) 58.8, Lymph % (Auto) 24.0, Dougherty % (Auto) 11.1 H, Eos % (Auto) 5.2 H, Baso % (Auto) 0.6, Absolute Neuts (auto) 5.6, Absolute Lymphs (auto) 2.30, Nucleated RBC % 0 Radiography Diagnostic Testing: Radiology Impression Chest/Abdomen/Pelvis CTA 05/03/22 09:24 IMPRESSION: No evidence of aneurysmal dilatation of the thoracic or abdominal aorta. Atherosclerotic plaque formation throughout. No evidence of dissection. Moderate sized hiatal hernia. Electronically Signed: Babak Samuels MD at 11:00 EST , Echocardiogram 05/03/22 12:38 Interpretation Summary Normal LV size. Mild concentric left ventricular hypertrophy. The left ventricular ejection fraction is 60 %. Stage 3 diastolic dysfunction. The left atrium is severely enlarged. The right atrium is moderately enlarged. Mild mitral valve prolapse, posterior leaflet Moderately severe (3+) anteriorly directed mitral valve insufficiency. Mild to moderate (1-2+) tricuspid valve insufficiency. Pulmonary artery systolic pressure is 58 mmHg. Mild (1+) aortic valve insufficiency. Moderate (2+) pulmonic valve insufficiency. Ordering Physician: Jose Lemus Referring Physician: Hilton Jay M.D. Performed By: Kelsy Chapman RCS Physical Exam Narrative GENERAL: cooperative HEENT: Atraumatic; normocephalic EYES; Anicteric, Normal Conjunctiva NECK; supple, normal thyroid, RESPIRATORY: Diminished to auscultation CARDIOVASCULAR: Regular S1 S2, GI: soft, normoactive bowel sounds, : No Renal angle tenderness; EXTREMITIES: No edema, no clubbing, MUSCULOSKELETAL: no muscle wasting NEURO: Awake; no lateralizing signs. SKIN: No Rash PSYCH; Flat affect Assessment & Plan Assessment/Plan (1) Atrial fibrillation, new onset: PLAN: Plan Patient is a 77-year-old gentleman admitted with abdominal discomfort found to be in A-fib with RVR 1. New onset A-fib ? Patient has been admitted to monitored bed for subsequent evaluation. As partof his management ordered TSH serial cardiac enzymes 2D echo. Patient convertedback to sinus rhythm prior to being admitted. 2D echo will be ordered as part of his evaluation. Patient was also started on systemic anticoagulation Eliquis2.5 mg p.o. twice daily ? 05/04/2022 Patient was seen in consultation by cardiology Dr. Paula recommendeddiscontinuation of aspirin and increasing Eliquis dose to 5 mg p.o. twice daily. Patient also to undergo DARCY as outpatient to evaluate DARCY as outpatient to evaluate his mitral regurgitation 2. Coronary artery disease ? With previous CABG and recent PCI with LORENZA to severe disease in the ostium of the left main trunk in December 2021 at [facility] 3. Dyslipidemia -Patient is on statin therapy, continued at home dose 4. Hypertension - Blood pressure controlled, home medications continued with dose adjustment as needed 5. Hypothyroidism - Patient is on levothyroxine home dose continued. 6. History of prostate CA ? Currently remission 7. DVT prophylaxis ? Placed on Eliquis Time spent in the patient's overall evaluation,decision-making process, review of diagnostic data, adjustment of management, discussion with other providers, nursing nursing and ancillary staff involved in patient's care documentation, 40minutes Charges/Coding Visit Charges Inpatient E&M: 16602 Subs Hosp L2 05/04/22 0912 <Electronically signed by Jose Lemus MD> Cosigner Signature (if applicable): CC: ~ Signed [facility] Work Phone: [phone] 775-259203-10-[address] Aguilera [facility] May 03, 2022 3:57pm Note Date/Time May 03, 2022 10: 20am [facility] Medical Records Department [address] [place] [address] Emergency Department Summary 05/03/22 MR#: [id number] Acct: [id number] Name: СЕРГЕЙ ALMEIDA Rep #:[id number] : 1945 77 From: Miguelito Peralta PCP: Dr. Hilton Jay, DO Status:AD M JEFFREY Location: [place] [address] HPI History of Present Illness Chief Complaint: Palpitations Informant: patient and spouse/S.O. Narrative Narrative: Presenting with abdominal pain and not feeling well since this morning. Per spouse appeared pale and he was reported not feeling well. He has history of three- vessel CABG in 1995, locally followed by cardiology here Dr. Rodriguez. [facility] he had a subsequent stent this past September due to exertional dyspnea. He has a mitral valve regurgitation seen at the same time. Symptomatically was improving therefore plan for this is serial echocardiograms with monitoring. Per spouse has had his aorta evaluated in the past however none recently has not been told of any aneurysms. Patient presenting noting atrial flutter with tachycardia concerns, denies any palpitations. He currently does take beta he asked for it and Plavix no other anticoagulants. He did not take his blood pressure this morning per spouse due to holding it due to his appearance. He takes metoprolol 12.5 g twice a day. 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 Elevated PSA Essential hypertension Hyperlipidemia Hypothyroidism Nonrheumatic mitral (valve) insufficiency Nonrheumatic mitral (valve) prolapse Old inferolateral myocardial infarction Prostate cancer Urgency-frequency syndrome Home Medications cholecalciferol (vitamin D3) 25 mcg (1,000 unit) tablet 1,000 unit PO DAILY SUPPLEMENT 01/14/14 [History Last Taken 05/02/22] multivitamin with folic acid 400 mcg tablet 1 tab PO DAILY SUPPLEMENT 01/14/14 [History Last Taken 05/02/22] latanoprost 0.005 % eye drops 1 drp EACH EYE QHS EYES 01/03/17 [History Last Taken 05/02/22] omega-3 fatty acids-fish oil 684 mg-1,200 mg capsule,delayed release 1 ea PO DAILY SUPPLEMENT 01/03/17 [History Last Taken 05/02/22] cinnamon bark 500 mg capsule 500 mg PO DAILY 10/07/18 [History Last Taken 05/02/22] coenzyme O01-[id number] E 100 mg-5 unit capsule 1 cap PO DAILY 10/07/18 [History Last Taken 05/02/22] magnesium oxide 500 mg capsule 500 mg PO DAILY 10/07/18 [History Last Taken 05/02/22] vitamin B complex 1 tab PO DAILY 10/07/18 [History Last Taken 05/02/22] nitroglycerin 0.4 mg sublingual tablet (Nitrostat) 0.4 mg sublingual Q5M PRN chest pain #25 tabs 12/07/19 [Rx Last Taken Unknown] aspirin 81 mg tablet,delayed release (Adult Low Dose Aspirin) 81 mg PO QDAY #90 tabs 03/15/21 [Rx Last Taken 05/02/22] furosemide 40 mg tablet (Lasix) 40 mg PO DAILY #90 tabs 03/15/21 [Rx Last Taken 05/02/22] metoprolol tartrate 25 mg tablet 12.5 mg PO BID BP #90 tabs 06/19/21 [Rx Last Taken 05/02/22] rosuvastatin 5 mg tablet 5 mg PO QHS cholesterol #90 tabs 08/20/21 [Rx Last Taken 05/02/22] levothyroxine 100 mcg tablet 100 mcg PO DAILY THYROID #90 tabs 09/06/21 [Rx Last Taken 05/02/22] clopidogrel 75 mg tablet 75 mg PO DAILY 09/18/21 [History Last Taken 05/02/22] epinephrine 0.3 mg/0.3 mL injection, auto-injector 0.3 mg IM X1 PRN Allergic Reaction 09/20/21 [History Last Taken Unknown] amlodipine 2.5 mg tablet 2.5 mg PO DAILY 12/20/21 [History Last Taken 05/02/22] Allergy/AdvReac Type Severity Reaction Status Date / Time bee venom protein (honey bee) Allergy Unknown hives/anaph Verified 05/03/22 09:01 ylaxis ramipril Allergy Angioedema Verified 05/03/22 09:01 Family History Father , of Burleson's disease Rohini's disease Mother , Age 60 of [place] CAD (coronary artery disease) Myocardial infarction Brother CAD (coronary artery disease) history of cabg Brother CAD (coronary artery disease) Stented coronary artery Diabetes Sister CAD (coronary artery disease) Myocardial infarction Hypertension Surgical History H/O coronary artery bypass surgery (11/1994) H/O prostatectomy History of coronary artery stent placement (09/14/21) History of left heart catheterization (04/30/21) Social History Smoking Status: Former smoker alcohol intake: current alcohol intake frequency: other Alcohol type: beer and wine caffeine: Yes Type: coffee Number of servings: 3 ROS ROS ED Constitutional Constitutional ED: Denies chills, fever(s) or sweats Eyes Eyes: Denies change in vision ENT ENT ED: Denies dysphagia or sore throat Cardiovascular Cardiovascular: Denies chest pain, leg edema, palpitations or racing heartbeat Respiratory/Chest Respiratory/Chest: Denies cough, dyspnea or dyspnea on exertion Gastrointestinal Gastrointestinal: Reports abdominal pain; Denies diarrhea, nausea or vomiting Genitourinary Genitourinary ED: Denies dysuria, hematuria or urinary frequency Musculoskeletal Musculoskeletal: Denies back pain, extremity pain or neck pain Integumentary Denies rash or wounds Neurologic Neurologic: Denies headache(s), paresthesias or weakness EXAM Physical Exam Const Vital Signs: 05/03/22 08:58 05/03/22 09:01 05/03/22 09:01 Temperature 96.9 F L Temperature Source Temporal Pulse Rate 156 H 152 H Respiratory Rate 18 18 Respiratory Effort Normal Blood Pressure 138/87 H 117/97 H Blood Pressure Mean 104 103 Pulse Ox 98 98 Oxygen Delivery Method Room Air Room Air 05/03/22 10:01 05/03/22 11:00 Temperature 97.8 F Temperature Source Temporal Pulse Rate 90 89 Respiratory Rate 18 16 Respiratory Effort Blood Pressure 108/76 98/76 Blood Pressure Mean 86 83 Pulse Ox 99 99 Oxygen Delivery Method Room Air Room Air Positive well nourished and well developed General Appearance ED: well developed and NAD HEENT Reports moist mucous membranes normocephalic and atraumatic Eyes PERRL, EOMs intact bilaterally and conjunctivae normal General Eye ED: Yes normal appearance of both eyes Neck no lymphadenopathy and supple General: Negative for tenderness Chest Wall Chest: Negative for tenderness Resp normal respiratory effort and normal air movement Effort and Inspection: symmetric chest movement; Negative for respiratory distress Cardio regular rate, regular rhythm and S1 normal heart sound Rate: tachycardic Peripheral Pulses: pulses 2+ throughout GI normal to inspection, nondistended, normoactive bowel sounds and non-tender Palpation: Negative for guarding or rebound tenderness present Back/Spine no CVA tenderness and no thoracic nor lumbar tenderness Extremity normal to inspection General Extremety ED: Negative for edema or tenderness General Extremity: Negative for edema Neuro oriented x3 and no sensory deficits noted Sensorium / Orientation: awake and alert Skin no rashes or lesions noted and no wounds MDM MDM MDM Narrative Medical decision making narrative: Interventions / MDM: Differential diagnosis: Atrial flutter/atrial fibrillation, aortic aneurysm, aortic dissection Diagnosis considered but do not suspect: N/A My EKG interpretation: EKG #1 at 0904: A flutter 2-1 rate of 113, no ST or T wave changes. EKG #2 at 1006: Atrial fibrillation rate controlled at 80, no ST or T wave changes. ED KG #3 at 1131: Sinus bradycardia rate of 57. Imaging independently reviewed and interpreted by myself: CT angiogram chest abdomen pelvis per radiology no acute process. External documents reviewed: N/A Test considered but not ordered:N/A ED course: Patient arrived a flutter on EKG he is given Lopressor x1 heart rate in the 80s repeat EKG still A-fib rate controlled. With patient's reported history abdominal pain rule out dissection scans obtained of CT chest abdomen pelvis which was negative. Labs were stable creatinine 1.34 electrolytes with potassium 3.8. Initial troponin negative. Lipase and LFTs are normal. Heart rate maintained in the 80s initial order for his home dose of metoprolol 12.5 mg. Re-evaluation: stable, on the monitor appeared to have converted heart rate in the 50s, repeat EKG confirms this. His home dose metoprolol held secondary heart rate already in the 50s was given IV Lopressor.CHADS2 Tri is a 6. Discussed he will be likely recommended anticoagulations. concerned with his cardiac history would like him observed in the hospital. Do feel this is reasonable with his cardiac history. I spoke with hospitalist Dr. Lemus for observations admission. He request I speak with cardiology on-call, spoke with Dr. Paula, who is updated. Disposition discussed with patient/family/significant other: Patient and significant other Case discussed with consulting clinician: Cardiology Dr. Paula, hospitalist Dr. Lemus. Lab Data Attestation: I reviewed the patient's lab results. Labs: Laboratory Results - last 24 hr 05/03/22 05/03/22 05/03/22 09:05 09:05 09:05 WBC 10.3 RBC 5.38 Hgb 16.4 Hct 50.4 MCV 93.7 MCH 30.5 MCHC 32.5 RDW Std Deviation 50.5 H RDW Coeff of Darian 14.6 Plt Count 244 MPV 10.7 PT 13.5 INR 1.1 APTT 25.9 Sodium 143 Potassium 3.8 Chloride 106 Carbon Dioxide 27.0 Anion Gap 10 BUN 21 H Creatinine 1.34 H Estim Creat Clear Calc 46.15 Est GFR (MDRD) Af Amer 66 Est GFR (MDRD) Non-Af 55 L BUN/Creatinine Ratio 15.7 Glucose 125 H Calcium 9.6 Total Bilirubin 1.00 AST 28 ALT 35 Alkaline Phosphatase 50 Troponin I High Sens 13 Total Protein 7.5 Albumin 3.7 Globulin 3.8 Albumin/Globulin Ratio 1.0 Lipase 143 Radiography Diagnostic Testing: Clinical Impression(s) from Imaging Studies Chest/Abdomen/Pelvis CTA 05/03/22 09:24 IMPRESSION: No evidence of aneurysmal dilatation of the thoracic or abdominal aorta. Atherosclerotic plaque formation throughout. No evidence of dissection. Moderate sized hiatal hernia. Electronically Signed: Babak Samuels MD at 11:00 EST , Discharge Plan Dx/Rx/DC Orders Clinical Impression: Atrial fibrillation, new onset, Essential hypertension, Nonrheumatic mitral (valve) insufficiency, History of coronary artery stent placement Disposition Disposition: Acute Care Hospital [facility] Discharge Date/Time: 05/03/22 12:27 What to do if you have Problems For any increased pain, shortness of breath, bleeding, nausea or vomiting, chestpain, or any unexpected problems, contact your Primary Care Provider. Call [facility] ([phone]) or report to the closest Emergency Room. Call 911 if necessary. 05/03/22 2297 <Electronically signed by Miguelito Peralta> Cosigner Signature (if applicable): CC: Dr. Hilton Jay DO ~ Signed [facility] Work Phone: 1(436) 914-419503-10-[address] Paula [facility] May 03, 2022 2:49pm Note Date/Time May 03, 2022 2:4 9pm [facility] Medical Records Department [address] [place] [address] Consultation - Cardiology 05/03/22 1441 MR#: [id number] Acct: [id number] Name: СЕРГЕЙ ALMEIDA Rep #:[id number] : 1945 77 From: Michael Paula MD PCP: Dr. Hilton Jay DO Status:BEBA M JEFFREY Location: [place] [address] Assessment & Plan Assessment/Plan (1) Atrial fibrillation, new onset: PLAN: Converted to normal sinus rhythm spontaneously. Continue beta-blockers. Agree with Eliquis. Discussed chronic oral anticoagulation with the patient andhis . Risks and benefits explained. They understand and wish to commence anticoagulation. His Eliquis dose should be 5 mg twice daily. Stop aspirin. (2) Coronary artery disease: PLAN: History of CABG. [facility] Aspirin as we are starting him on Eliquis for his atrial fibrillation. (3) Mitral regurgitation: PLAN: Appears moderate to severe on surface echocardiogram. Recommend follow- upwith a DARCY as an outpatient to further evaluate MR. For afterload reduction. Please note that the patient is allergic to PORFIRIO inhibitors with history of angioedema. Increase amlodipine to 5 mg twice daily (4) Pulmonary hypertension: PLAN: Most likely secondary to mitral regurgitation. See #3 above. (5) Hypertension: PLAN: Increase amlodipine to 5 mg once daily. (6) Dyslipidemia: PLAN: On atorvastatin. HPI Consult Data Date of Consult: 05/03/22 HPI Narrative HPI Narrative: The patient has history of coronary artery disease status post CABG. He also has history of mitral regurgitation. He presented to the emergency room with complaints of abdominal discomfort, nausea and vomiting. He was noted to be in atrial fibrillation with rapid ventricular response. Apparently patient converted on his own to normal sinus rhythm in the emergency room. Presently patient is asymptomatic. Denies any chest pains. Denies any shortness of breath either at rest or with exertion. No orthopnea. No PND. Denies any ankle edema. 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 Elevated PSA Essential hypertension Hyperlipidemia Hypothyroidism Nonrheumatic mitral (valve) insufficiency Nonrheumatic mitral (valve) prolapse Old inferolateral myocardial infarction Prostate cancer Urgency-frequency syndrome Home Medications cholecalciferol (vitamin D3) 25 mcg (1,000 unit) tablet 1,000 unit PO DAILY SUPPLEMENT 01/14/14 [History Last Taken 05/02/22] multivitamin with folic acid 400 mcg tablet 1 tab PO DAILY SUPPLEMENT 01/14/14 [History Last Taken 05/02/22] latanoprost 0.005 % eye drops 1 drp EACH EYE QHS EYES 01/03/17 [History Last Taken 05/02/22] omega-3 fatty acids-fish oil 684 mg-1,200 mg capsule,delayed release 1 ea PO DAILY SUPPLEMENT 01/03/17 [History Last Taken 05/02/22] cinnamon bark 500 mg capsule 500 mg PO DAILY 10/07/18 [History Last Taken 05/02/22] coenzyme M45-ektagvu E 100 mg-5 unit capsule 1 cap PO DAILY 10/07/18 [History Last Taken 05/02/22] magnesium oxide 500 mg capsule 500 mg PO DAILY 10/07/18 [History Last Taken 05/02/22] vitamin B complex 1 tab PO DAILY 10/07/18 [History Last Taken 05/02/22] nitroglycerin 0.4 mg sublingual tablet (Nitrostat) 0.4 mg sublingual Q5M PRN chest pain #25 tabs 12/07/19 [Rx Last Taken Unknown] aspirin 81 mg tablet,delayed release (Adult Low Dose Aspirin) 81 mg PO QDAY #90 tabs 03/15/21 [Rx Last Taken 05/02/22] furosemide 40 mg tablet (Lasix) 40 mg PO DAILY #90 tabs 03/15/21 [Rx Last Taken 05/02/22] metoprolol tartrate 25 mg tablet 12.5 mg PO BID BP #90 tabs 06/19/21 [Rx Last Taken 05/02/22] rosuvastatin 5 mg tablet 5 mg PO QHS cholesterol #90 tabs 08/20/21 [Rx Last Taken 05/02/22] levothyroxine 100 mcg tablet 100 mcg PO DAILY THYROID #90 tabs 09/06/21 [Rx Last Taken 05/02/22] clopidogrel 75 mg tablet 75 mg PO DAILY 09/18/21 [History Last Taken 05/02/22] epinephrine 0.3 mg/0.3 mL injection, auto-injector 0.3 mg IM X1 PRN Allergic Reaction 09/20/21 [History Last Taken Unknown] amlodipine 2.5 mg tablet 2.5 mg PO DAILY 12/20/21 [History Last Taken 05/02/22] Allergy/AdvReac Type Severity Reaction Status Date / Time bee venom protein (honey bee) Allergy Unknown hives/anaph Verified 05/03/22 09:01 ylaxis ramipril Allergy Angioedema Verified 05/03/22 09:01 Family History Father , of Burleson's disease Burleson's disease Mother , Age 60 of [place] CAD (coronary artery disease) Myocardial infarction Brother CAD (coronary artery disease) history of cabg Brother CAD (coronary artery disease) Stented coronary artery Diabetes Sister CAD (coronary artery disease) Myocardial infarction Hypertension Surgical History H/O coronary artery bypass surgery (11/1994) H/O prostatectomy History of coronary artery stent placement (09/14/21) History of left heart catheterization (04/30/21) Social History Smoking Status: Former smoker alcohol intake: current alcohol intake frequency: other Alcohol type: beer and wine caffeine: Yes Type: coffee Number of servings: 3 Physical Exam Narrative Comfortable. No apparent distress. Heart sounds 1 and 2 noted. 4/6 systolic murmur at apex. Chest clear to auscultation bilaterally. Abdominal soft bowel sounds positive. Alert oriented x3. No ankle edema noted. Risk Stratification Risk Stratification Applicable: No Objective Data Vital Signs: Vital Signs Temp Pulse Resp BP Pulse Ox O2 Del Method 97 F L 58 L 16 126/80 H 96 Room Air 05/03/22 13:06 05/03/22 13:06 05/03/22 13:06 05/03/22 13:06 05/03/22 13:06 05/03/22 13:12 Oxygen Delivery Method Room Air Weight: 174 lb 6.17 oz Body Mass Index (BMI) 25.0 Intake & Output: Intake and Output for Last 24 Hours 05/01/22 05/02/22 05/03/22 23:59 23:59 23:59 Intake Total 328.33 / 328.33 Balance 328.33 / 328.33 Lab / Micro Data Result Diagrams: 05/03/22 09:05 05/03/22 09:05 Labs: Laboratory Results - last 24 hr 05/03/22 09:05: WBC 10.3, RBC 5.38, Hgb 16.4, Hct 50.4, MCV 93.7, MCH 30.5, MCHC32.5, RDW Std Deviation 50.5 H, RDW Coeff of Darian 14.6, Plt Count 244, MPV 10.7 05/03/22 09:05: PT 13.5, INR 1.1, APTT 25.9 05/03/22 09:05: Sodium 143, Potassium 3.8, Chloride 106, Carbon Dioxide 27.0, Anion Gap 10, BUN 21 H, Creatinine 1.34 H, Estim Creat Clear Calc 46.15, Est GFR(MDRD) Af Amer 66, Est GFR (MDRD) Non-Af 55 L, BUN/Creatinine Ratio 15.7, Glucose 125 H, Calcium 9.6, Total Bilirubin 1.00, AST 28, ALT 35, Alkaline Phosphatase 50, Troponin I High Sens 13, Total Protein 7.5, Albumin 3.7, Globulin 3.8, Albumin/Globulin Ratio 1.0, Lipase 143 05/03/22 12:13: Troponin I High Sens 13 05/03/22 12:13: TSH 1.95 Cardiology Labs/Tests 05/03/22 09:05: WBC 10.3, RBC 5.38, Hgb 16.4, Hct 50.4, MCV 93.7, MCH 30.5, MCHC32.5, Plt Count 244, MPV 10.7 05/03/22 09:05: PT 13.5, INR 1.1, APTT 25.9 05/03/22 09:05: Sodium 143, Potassium 3.8, Chloride 106, Carbon Dioxide 27.0, Anion Gap 10, BUN 21 H, Creatinine 1.34 H, Est GFR (MDRD) Af Amer 66, Est GFR (MDRD) Non-Af 55 L, BUN/Creatinine Ratio 15.7, Glucose 125 H, Calcium 9.6, TotalBilirubin 1.00 Rhythm: EKG: ECHO: Stress Test: Cardiac Cath: PCI: CT Surgery: Holter monitor: EPS: PPM: CXR: Chest CT Scan: Radiography Diagnostic Testing: Radiology Impression Chest/Abdomen/Pelvis CTA 05/03/22 09:24 IMPRESSION: No evidence of aneurysmal dilatation of the thoracic or abdominal aorta. Atherosclerotic plaque formation throughout. No evidence of dissection. Moderate sized hiatal hernia. Electronically Signed: Babak Samuels MD at 11:00 EST Reading Location ID and State: [facility] / [place] , Service support , Echocardiogram 05/03/22 12:38 Interpretation Summary Normal LV size. Mild concentric left ventricular hypertrophy. The left ventricular ejection fraction is 60 %. Stage 3 diastolic dysfunction. The left atrium is severely enlarged. The right atrium is moderately enlarged. Mild mitral valve prolapse, posterior leaflet Moderately severe (3+) anteriorly directed mitral valve insufficiency. Mild to moderate (1-2+) tricuspid valve insufficiency. Pulmonary artery systolic pressure is 58 mmHg. Mild (1+) aortic valve insufficiency. Moderate (2+) pulmonic valve insufficiency. Ordering Physician: Jose Lemus Referring Physician: Hilton Jay M.D. Performed By: Kelsy Chapman RCS 05/03/22 1449 <Electronically signed by Michael Paula MD> Cosigner Signature (if applicable): CC: Dr. iHlton Jay, DO~ Signed [facility] Work Phone: [phone]) [phone] History and physical note Author Dr. Lemus [facility] May 03, 2022 12:16pm Note Date/Time May 03, 2022 11: 49am [facility] Medical Records Department [address] [place], [place] [address] [place] [address] H&P Exam - Hospitalist 05/03/22 1149 MR#: [id number] Acct: [id number] Name: СЕРГЕЙ ALMEIDA Rep #:[id number] : 1945 77 From: Jose Lemus MD PCP: Dr. Hilton Jay, DO Status:AD M [facility] Location: [place] [address] HPI - General General Date of Admission: 05/03/22 Date of Service: 05/03/22 Chief Complaint: Pulmonary discomfort HPI Narrative СЕРГЕЙ ALMEIDA, is a 77 M with abdominal discomfort. Patient has significant pastcardiac history including coronary artery disease with previous CABG and recent PCI with LORENZA [facility] Patient woke up on the morning of his admission with some discomfort in the mid abdomen. He did experience diaphoresis and felt patient was pale. Patient was brought to the emergency department as a result found to be in A-fibwith RVR apparently new. Did receive Lopressor 12.5x1 converted to sinus rhythmgiven his past significant cardiac history decision was made to admit patient 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 Elevated PSA Essential hypertension Hyperlipidemia Hypothyroidism Nonrheumatic mitral (valve) insufficiency Nonrheumatic mitral (valve) prolapse Old inferolateral myocardial infarction Prostate cancer Urgency-frequency syndrome Home Medications cholecalciferol (vitamin D3) 25 mcg (1,000 unit) tablet 1,000 unit PO DAILY SUPPLEMENT 01/14/14 [History Last Taken 05/02/22] multivitamin with folic acid 400 mcg tablet 1 tab PO DAILY SUPPLEMENT 01/14/14 [History Last Taken 05/02/22] latanoprost 0.005 % eye drops 1 drp EACH EYE QHS EYES 01/03/17 [History Last Taken 05/02/22] omega-3 fatty acids-fish oil 684 mg-1,200 mg capsule,delayed release 1 ea PO DAILY SUPPLEMENT 01/03/17 [History Last Taken 05/02/22] cinnamon bark 500 mg capsule 500 mg PO DAILY 10/07/18 [History Last Taken 05/02/22] coenzyme A79-[id number] E 100 mg-5 unit capsule 1 cap PO DAILY 10/07/18 [History Last Taken 05/02/22] magnesium oxide 500 mg capsule 500 mg PO DAILY 10/07/18 [History Last Taken 05/02/22] vitamin B complex 1 tab PO DAILY 10/07/18 [History Last Taken 05/02/22] nitroglycerin 0.4 mg sublingual tablet (Nitrostat) 0.4 mg sublingual Q5M PRN chest pain #25 tabs 12/07/19 [Rx Last Taken Unknown] aspirin 81 mg tablet,delayed release (Adult Low Dose Aspirin) 81 mg PO QDAY #90 tabs 03/15/21 [Rx Last Taken 05/02/22] furosemide 40 mg tablet (Lasix) 40 mg PO DAILY #90 tabs 03/15/21 [Rx Last Taken 05/02/22] metoprolol tartrate 25 mg tablet 12.5 mg PO BID BP #90 tabs 06/19/21 [Rx Last Taken 05/02/22] rosuvastatin 5 mg tablet 5 mg PO QHS cholesterol #90 tabs 08/20/21 [Rx Last Taken 05/02/22] levothyroxine 100 mcg tablet 100 mcg PO DAILY THYROID #90 tabs 09/06/21 [Rx Last Taken 05/02/22] clopidogrel 75 mg tablet 75 mg PO DAILY 09/18/21 [History Last Taken 05/02/22] epinephrine 0.3 mg/0.3 mL injection, auto-injector 0.3 mg IM X1 PRN Allergic Reaction 09/20/21 [History Last Taken Unknown] amlodipine 2.5 mg tablet 2.5 mg PO DAILY 12/20/21 [History Last Taken 05/02/22] Allergy/AdvReac Type Severity Reaction Status Date / Time bee venom protein (honey bee) Allergy Unknown hives/anaph Verified 05/03/22 09:01 ylaxis ramipril Allergy Angioedema Verified 05/03/22 09:01 Family History Father , of Rohini's disease Burleson's disease Mother , Age 60 of [place] CAD (coronary artery disease) Myocardial infarction Brother CAD (coronary artery disease) history of cabg Brother CAD (coronary artery disease) Stented coronary artery Diabetes Sister CAD (coronary artery disease) Myocardial infarction Hypertension Surgical History H/O coronary artery bypass surgery (11/1994) H/O prostatectomy History of coronary artery stent placement (09/14/21) History of left heart catheterization (04/30/21) Social History Smoking Status: Former smoker alcohol intake: current alcohol intake frequency: other Alcohol type: beer and wine caffeine: Yes Type: coffee Number of servings: 3 ROS ROS Narrative GENERAL: denies fever, chills, night sweats, weight loss, anorexia HEENT: denies headache, sinus congestion, or drainage, dysphagia RESPIRATORY: denies cough, sputum production, shortness of breath, CARDIAC: denies chest pain, palpitations, orthopnea, PND GASTROINTESTINAL: abdominal pain, nausea, denies vomiting, melena, GENITOURINARY: denies dysuria, urgency, frequency, heamaturia EXTREMITY: denies swelling MUSCULOSKELETAL: denies current joint pain or tenderness NEUROLOGIC: denies focal numbness, weakness, tingling HEMATOLOGIC: denies easy bruising and/or hemorrhage INTEGUMENT: denies rashes PSYCHIATRIC: denies suicidal or homicidal ideation Vital Signs Vital Signs Vital Signs: 05/03/22 08:58 05/03/22 09:01 05/03/22 09:01 Temperature 96.9 F L Temperature Source Temporal Pulse Rate 156 H 152 H Respiratory Rate 18 18 Respiratory Effort Normal Blood Pressure 138/87 H 117/97 H Blood Pressure Mean 104 103 Pulse Ox 98 98 Oxygen Delivery Method Room Air Room Air 05/03/22 10:01 05/03/22 11:00 Temperature 97.8 F Temperature Source Temporal Pulse Rate 90 89 Respiratory Rate 18 16 Respiratory Effort Blood Pressure 108/76 98/76 Blood Pressure Mean 86 83 Pulse Ox 99 99 Oxygen Delivery Method Room Air Room Air Weight Weight: 81.2 kg Body Mass Index (BMI) 25.7 Physical Exam Narrative GENERAL: cooperative HEENT: Atraumatic; normocephalic EYES; Anicteric, Normal Conjunctiva NECK; supple, normal thyroid, RESPIRATORY: Diminished to auscultation CARDIOVASCULAR: Regular S1 S2, GI: soft, normoactive bowel sounds, : No Renal angle tenderness; EXTREMITIES: No edema, no clubbing, MUSCULOSKELETAL: no muscle wasting NEURO: Awake; no lateralizing signs. SKIN: No Rash PSYCH; Flat affect Results Lab / Micro Data Result Diagrams: 05/03/22 09:05 05/03/22 09:05 Labs: Laboratory Results - last 24 hr 05/03/22 09:05: WBC 10.3, RBC 5.38, Hgb 16.4, Hct 50.4, MCV 93.7, MCH 30.5, MCHC32.5, RDW Std Deviation 50.5 H, RDW Coeff of Darian 14.6, Plt Count 244, MPV 10.7 05/03/22 09:05: PT 13.5, INR 1.1, APTT 25.9 05/03/22 09:05: Sodium 143, Potassium 3.8, Chloride 106, Carbon Dioxide 27.0, Anion Gap 10, BUN 21 H, Creatinine 1.34 H, Estim Creat Clear Calc 46.15, Est GFR(MDRD) Af Amer 66, Est GFR (MDRD) Non-Af 55 L, BUN/Creatinine Ratio 15.7, Glucose 125 H, Calcium 9.6, Total Bilirubin 1.00, AST 28, ALT 35, Alkaline Phosphatase 50, Troponin I High Sens 13, Total Protein 7.5, Albumin 3.7, Globulin 3.8, Albumin/Globulin Ratio 1.0, Lipase 143 Radiology Impression Chest/Abdomen/Pelvis CTA 05/03/22 09:24 IMPRESSION: No evidence of aneurysmal dilatation of the thoracic or abdominal aorta. Atherosclerotic plaque formation throughout. No evidence of dissection. Moderate sized hiatal hernia. Electronically Signed: Babak Samuels MD at 11:00 EST , Assessment & Plan Assessment/Plan (1) Atrial fibrillation, new onset: PLAN: Plan Patient is a 77-year-old gentleman admitted with abdominal discomfort found to be in A-fib with RVR New onset A-fib ? Patient has been admitted to monitored bed for subsequent evaluation. As partof his management ordered TSH serial cardiac enzymes 2D echo. Patient convertedback to sinus rhythm prior to being admitted. 2D echo will be ordered as part of his evaluation. Patient was also started on systemic anticoagulation Eliquis2.5 mg p.o. twice daily 2. Coronary artery disease ? With previous CABG and recent PCI with LORENZA to severe disease in the ostium of the left main trunk in December 2021 at [facility] Main [place] 3. Dyslipidemia -Patient is on statin therapy, continued at home dose 4. Hypertension - Blood pressure controlled, home medications continued with dose adjustment as needed 5. Hypothyroidism - Patient is on levothyroxine home dose continued. 6. History of prostate CA ? Currently remission 7. DVT prophylaxis ? Placed on Eliquis Time spent in the patient's overall evaluation,decision-making process, review of diagnostic data, adjustment of management, discussion with other providers, nursing nursing and ancillary staff involved in patient's care documentation, 75minutes Advance planning; did discuss with the patient and family regarding advanced directives as well as CODE STATUS. Did explain the various scenarios involved (FULL CODE, DNR CCA, DNR CCA with no intubation, and DNR CC and what each meant) patient elected to remain full code with CPR and intubation if needed. Order was placed. Time spent on discussion 18 minutes. Charges/Coding Visit Charges Inpatient E&M: 57966 Init Hosp L3 Procedures Hospitalists Procedures: 01336 Advncd Care Plan 30 Min 05/03/22 1216 <Electronically signed by Jose Lemus MD> Cosigner Signature (if applicable): CC: Dr. Jose Lemus MD; Dr. Hilton Jay DO~ Signed [facility] Work Phone: 1(805) 175-263411-16-2022 Miscellaneous Notes* Telephone Encounter - SARI Valdovinos - 01/09/2022 11:53 AM EST Spoke with patient and he said Dr. Alegria stated he did not need his apt on 02/07, so it was deleted and he will call back in March for a July apt [facility] History of Present illness Narrative* Abhishek Alegria MD - 11/22/2021 1:16 PM EDT Images from the original note were not included. [facility] [place] [facility] Department of Cardiovascular Medicine SECTION OF INTERVENTIONAL CARDIOLOGY OUTPATIENT VISIT DATE November 22, 2021 OUTPATIENT VISIT TYPE ESTABLISHED PRIMARY CARE PHYSICIAN: Hilton Jay DO ([facility]) [address] [place] [address] REFERRING PHYSICIAN: Abhishek Alegria [address] [facility] [address] [facility] [address] CHIEF COMPLAINT: PCI and DMR HISTORY OF PRESENT ILLNESS: Mr. Almeida is a 76 year old male who presents today for follow-up visit re CAD and DMR. PAST CARDIAC HISTORY: See HPI PAST MEDICAL HISTORY Diagnosis Date Benign neoplasm of colon CAD (coronary artery disease) Cataract Congestive heart failure (HCC) Hiatal hernia HLD (hyperlipidemia) Hypertension Hypothyroidism MVP (mitral valve prolapse) Prostate cancer (HCC) s/p prostatectomy 3 years ago Prostate disease PAST SURGICAL HISTORY Procedure Laterality Date CABG (3) VEIN GRAFTS & ARTERIAL GRAFT(S) 96 CORONARY ARTERY BYPASS GRAFT OPTX HUMERAL SHFT FX W/PLATE/SCREWS W/WOCERCLAGE 07/06 ORIF humerus RPR 1ST INGUN HRNA AGE 3 YRS/> REDUCIBLE 01-21-14 RIGHT TONSILLECTOMY HX SOCIAL HISTORY Social History Tobacco Use Smoking status: Never Smokeless tobacco: Never Substance Use Topics Alcohol use: Yes Comment: occasional Drug use: Not Currently FAMILY HISTORY Problem Relation Age of Onset Coronary Artery Disease Mother Heart Attack Mother Coronary Artery Disease Sister CABG Coronary Artery Disease Brother CABG Coronary Artery Disease Brother CABG ALLERGIES: ALLERGIES Allergen Reactions Bees Hives, Anaphylaxis Niacin Unknown MEDICATIONS: aspirin, enteric coated (ASPIRIN, ENTERIC COATED) 81 mg EC tablet^Take 1 tablet by mouth once daily.^Disp: 30 tablet^Rfl: 11 clopidogrel (PLAVIX) 75 mg tablet^Take 1 tablet by mouth once daily. May transfer subsequent refills to preferred pharmacy^Disp: 90 tablet^Rfl: 3 MAGNESIUM ORAL^Take 500 mg by mouth once daily.^Disp: ^Rfl: VITAMIN B COMPLEX-100 ORAL^Take 1 tablet by mouth once daily.^Disp: ^Rfl: furosemide (LASIX) 40 mg tablet^Take 40 mg by mouth once daily.^Disp: ^Rfl: ubidecarenone/vitamin E mixed (COQ10 SG 100 ORAL)^Take 100 mg by mouth once daily.^Disp: ^Rfl: latanoprost (XELPROS) 0.005 % ophthalmic emulsion^Use 1 Drop in both eyes daily at bedtime.^Disp: ^Rfl: cholecalciferol (VITAMIN D) 1,000 unit tab tablet^Take 1,000 Units by mouth once daily.^Disp: ^Rfl: sodium chloride 0.9 %, flush, (BD POSIFLUSH) syringe^Inject 2-10 mL intravenously as directed. For Echo procedure^Disp: 10 mL^Rfl: 0 levothyroxine (SYNTHROID) 100 mcg tablet^Take 100 mcg by mouth once daily. ^Disp: ^Rfl: metoprolol tartrate, short acting, (LOPRESSOR) 25 mg tablet^Take 12.5 mg by mouth twice daily. ^Disp: ^Rfl: ramipril (ALTACE) 10 mg capsule^Take 10 mg by mouth once daily. ^Disp: ^Rfl: CRESTOR 10 mg tablet^Take 5 mg by mouth once daily. ^Disp: ^Rfl: omega-3 fatty acids 1,000 mg cap^Take 2 g by mouth twice daily.^Disp: ^Rfl: Cinnamon Bark (CINNAMON) 500 mg cap^Take 1,000 mg by mouth once daily. ^Disp: ^Rfl: MULTI-VITAMIN ORAL^Take 1 tablet by mouth once daily. ^Disp: ^Rfl: REVIEW OF SYSTEMS: GENERAL: Negative for: Weight loss or gain, Fever or Chills, Weakness and Sleep difficulties. HEENT: Negative for: Headache, Impaired Vision, Glasses, Hearing Impairment, Ringing in Ears, Nosebleeds, Poor dental care, Bleeding Gums, Dentures NECK: Negative for: Swelling, Pain, Stiffness RESPIRATORY: Negative for: Cough, Blood in Sputum, Shortness of breath, Wheezing, Apnea GASTROINTESTINAL: Negative for: Trouble swallowing, Heartburn, Change in bowel habits, Blood in stool, Dark black stools MUSCULOSKELETAL: Negative for: Muscle or joint pain, Stiffness , Joint swelling NEUROLOGIC/PSYCHIATRIC: Negative for: Weakness, Paralysis, Numbness, Tingling, Tremor, Nervousness,Depressed mood, Memory loss SKIN: Negative for: Rashes, Itching HEMATOLOGICAL/LYMPHATIC: Negative for: Easy bruising , Easy bleeding ENDOCRINE: Negative for: Heat or cold intolerance, Excessive sweating, Frequent urination, Frequentthirst PHYSICAL EXAMINATION: General: Well appearing, in no acute distress, speaking in complete sentences. Skin: No clubbing, no cyanosis. Head/Eyes: Extra ocular movements intact Mouth: Teeth in good repair. Neck: JVP 10cm, no carotid bruits, carotids have a normal upstroke, no palpable thyromegaly. Lungs: Clear to auscultation and no rales Heart: Regular rhythm, PMI not displaced, severe MR murmur apex PV Pulses:Pulses intact Abdomen: Soft, nontender, bowel sounds normal, no palpable organomegaly, no bruits. Extremities: No peripheral edema . Grade 2/4 distal pulses bilaterally. Edema Scale: No Musculoskeletal: Normal gait and ambulation Neuro: Oriented to time, place and person IMPRESSION: It was my pleasure to see Mr. Almeida today regarding coronary disease and degenerative mitral regurgitation. For full details, please see my prior clinic notes. In brief, I had seen Mr. Almeida for the first time in July regarding DMR. He was having exertional dyspnea when working in his yard and walking hisdog. His DARCY did show P2 segment prolapse and flail with severe MR that was amenable to MitraClip. However, I had reviewed his coronary angiogram performed locally that demonstrated a patent SWANSON-LAD, but severe disease in the ostium of the left main trunk compromising the entire circumflex system.Given his symptoms, I did bring him to the asset availability leader on September 14 and performed cutting balloon angioplasty and stent placement to the ostial left main trunk with a 4.0/15 mm XIENCE LORENZA that was postdilated with a 4.5 mm noncompliant balloon and intravascular ultrasound demonstrated an optimal stent result. Since that time, he has had a tremendous clinical improvement without any significant exertional dyspnea, orthopnea, PND, lower extremity swelling or exertional chest tightness. Sometimes if it is cold outside or he is doing a lot of exertion, he might get a bit of shortness of breath, but, again, this is substantially better than it had been previously and it is not at all lifestyle limiting. Physical exam is as above. ASSESSMENTS AND PLANS: It was my pleasure to see Mr. Almeida today regarding recent PCI on a background of DMR. I am glad he has had such a tremendous functional improvement from the coronary stenting procedure. large territory and so that is not altogether surprising. With regard to management of his DMR, it is not clear to me at this point that he has any symptoms of concern. His LV function on echo in July was normal, as was the LV size. As such, it is not clearto me that there is a very clear motivation to proceed with MitraClip at this point in time. I would of course like him to keep a close eye on his degree of symptoms and if anything changes, then of course we should reassess. I am encouraged by the fact that his BNP was also normal back in July. I recommend he has an echocardiogram and a clinical visit next June/July. I am happy to review thoseecho images. Please feel free to contact me with any questions. Sincerely yours, Abhishek Alegria M.D. CONTACT INFORMATION: documented in this encounterSub[facility] Miscellaneous Notes* Telephone Encounter - Chyna Porter APRN.BREANN - 09/24/2021 3:39 PM EDT Call to patient as below Continues to have pain at the right arm wrist to the elbow. Has seen the ENVIRONMENTAL CONSULTANT in cards on and felt that it was fine and that it was healing well. Did have US done and was okay * Telephone Encounter - SARI Valdovinos - 09/24/2021 11:23 AM EDT Pt stated that he is still having wrist/arm pain from cath 10 days ago. Pt stated it also will wakehim up at night. Pt would like a call back to be sure this normal Ph. [phone] documented in this encounterSub[facility] Evaluation note* Diagnosis Onset Date Resolution Status Atrial fibrillation, new onset acute History of coronary artery stent placement September 14, 2021 acute Essential hypertension chron ic Nonrheumatic mitral (valve) insufficiency [facility] Work Phone: 1(948) 443-156007-22-2022 Evaluation note* Diagnosis Onset Date Resolution Status Atrial fibrillation, new onset acute Coronary artery disease acut e Dyslipidemia acute History of coronary artery stent placement September 14, 2021 acute Mitral regurgitation acute Pulmonary hypertension acute Essential hypertension chron ic Hypertension chronic Nonrheumatic mitral (valve) insufficiency [facility] Work Phone: 1(535) 596-530507-21-2022 Miscellaneous Notes* Telephone Encounter - Celine Caballero RN - 09/13/2021 2:22 PM EDT CARDIOVASCULAR LAB INSTRUCTIONS: Readiness to Learn: Cognitive Ability: Alert and oriented Motivation To Learn: Interested Family/Significant Other Support: Unable to assess - Family not present Instruction Provided To: Patient Patient Learns Best By: Individual Instruction Factors Affecting Learning: None Physical Limitations Affecting Learning: None Learning Response: Procedure: PTCA/Stent Pre procedure education topics: Arrival time/NPO Status/Medications/Travel Instructions/Restrictions covid 19/ driving restrictions Patient/Family Response Evaluation: Verbalizes understanding Follow Up Plan and Medication: As directed by physician Instruction/Supplemental Material Given: Cardiac catheterization instructions, procedure information, hospital information, hotel information. Instructed By Celine Caballero RN, RN. In Department of CARDIOLOGY. documented in this encounterSub[facility]06[facility]24[facility] History of Present illness Narrative* Amber Ta APRN.CNP - 08/17/2021 9:18 AM EDT Multidisciplinary Cardiac Team Review TRANSCATHETER MITRAL and TRICUSPID THERAPIES (TMTT) The below documentation is based on a mitral / tricuspid valve team discussion amongst the multidisciplinary team Members present: Attendees: Attendees: Dr. Huynh,Dr. Vaughan, Dr. Henderson, Dr. Camejo, Dr. Quinones, Dr. Norton, Dr. Casas, Dr. Cisse, Dr. Lobo, Dr. Wu, Dr. Howell, R Cely CRAIN, Julianne Guillermo CNP, Alannah Rivera RN, Radha Harry, Leonel Castle RN, Selena Martin MA, Nel Darling RN, Kristopher Harry MSN PATIENT NAME: Сергей Almeida DATE: August 17, 2021 Presenting Physician: Dr. Alegria Consulting Provider: Dr. Dax Rodriguez Inpatient Consult/Outpatient Consult: Outpatient Evaluated by CTS: Dr. Kyle HF Provider: N/A Primary Reason for Presentation: DMR/FMR Discussion / recommendations: After review and discussion of patient presentation, the following thoughts / recommendations were made. 1. DARCY and LHC images were reviewed. LMT CAD on LHC, MV flail noted at medial aspect of P2 2. Agree to schedule LM PCI, followed by MV clip at least 30 days later. 3. sales team member responsible: CVM Coordinator (LVM to discuss meeting outcome and plan) This abstract and interpretation of the conversations amongst the mitral / tricuspid MDT members has been completed by: Amber Ta APRN.CNP documented in this encounterSub[facility]06-17-2022 Instructions* Patient Instructions* Amber Ta APRN.CNP - 08/10/2021 1:18 PM EDT A follow-up with Fr. Alegria with ECHO and labs has been requested for you. Please call Dr. Alegria's office if your symptoms should progress prior to your follow-up appointment. [phone] Amber Ta APRN.CNP documented in this encounterSuburban [facility]06-17[facility]22 History of Present illness Narrative* Amber Ta APRN.CNP - 08/10/2021 1:00 PM EDT Images from the original note were not included. [facility] [place] [facility] Department of Cardiovascular Medicine SECTION OF INTERVENTIONAL CARDIOLOGY OUTPATIENT VISIT DATE August 10, 2021 OUTPATIENT VISIT TYPE ESTABLISHED PRIMARY CARE PHYSICIAN: Hilton Jya DO ([facility]) [address] [place] [address] REFERRING PHYSICIAN: Amber Guillermo [address] [facility] [address] CHIEF COMPLAINT: Patient presents with: Mitral Valve Regurgitation HISTORY OF PRESENT ILLNESS: Mr. Almeida is a 76 year old male who presents today for severe mitral valve regurgitation and mitral valve clip evaluation. He has been seen by both Dr. Alegria and Dr. Kyle. Reports shortness of breath with exertion, especially when walking his dog briskly around the block, or when frequently going up and down a flight of stairs. He also experiences lightheadness with positional changes. He denies chest pain, orthopnea, palpitations, syncope, leg swelling, coughing and wheezing. PAST CARDIAC HISTORY: See HPI PAST MEDICAL HISTORY Diagnosis Date Benign neoplasm of colon CAD (coronary artery disease) Cataract Congestive heart failure (HCC) Hiatal hernia HLD (hyperlipidemia) Hypertension Hypothyroidism MVP (mitral valve prolapse) Prostate cancer (HCC) s/p prostatectomy 3 years ago Prostate disease PAST SURGICAL HISTORY Procedure Laterality Date CABG (3) VEIN GRAFTS & ARTERIAL GRAFT(S) 96 CORONARY ARTERY BYPASS GRAFT OPTX HUMERAL SHFT FX W/PLATE/SCREWS W/WOCERCLAGE 07/06 ORIF humerus RPR 1ST INGUN HRNA AGE 5 YRS/> REDUCIBLE 01-21-14 RIGHT TONSILLECTOMY HX SOCIAL HISTORY Social History Tobacco Use Smoking status: Never Smoker Smokeless tobacco: Never Used Substance Use Topics Alcohol use: Yes Comment: occasional Drug use: Not Currently FAMILY HISTORY Problem Relation Age of Onset Coronary Artery Disease Mother Heart Attack Mother Coronary Artery Disease Sister CABG Coronary Artery Disease Brother CABG Coronary Artery Disease Brother CABG ALLERGIES: ALLERGIES Allergen Reactions Bees Hives, Anaphylaxis Niacin Unknown MEDICATIONS: MAGNESIUM ORAL Take 500 mg by mouth once daily. VITAMIN B COMPLEX-100 ORAL Take 1 tablet by mouth once daily. furosemide (LASIX) 40 mg tablet Take 40 mg by mouth once daily. ubidecarenone/vitamin E mixed (COQ10 SG 100 ORAL) Take 100 mg by mouth once daily. latanoprost (XELPROS) 0.005 % ophthalmic emulsion Use 1 Drop in both eyes daily at bedtime. cholecalciferol (VITAMIN D) 1,000 unit tab tablet Take 1,000 Units by mouth once daily. sodium chloride 0.9 %, flush, (BD POSIFLUSH) syringe Inject 2-10 mL intravenously as directed. For Echo procedure levothyroxine (SYNTHROID) 100 mcg tablet Take 100 mcg by mouth once daily. metoprolol tartrate, short acting, (LOPRESSOR) 25 mg tablet Take 12.5 mg by mouth twice daily. ramipril (ALTACE) 10 mg capsule Take 10 mg by mouth once daily. CRESTOR 10 mg tablet Take 5 mg by mouth once daily. omega-3 fatty acids 1,000 mg cap Take 2 g by mouth twice daily. Cinnamon Bark (CINNAMON) 500 mg cap Take 1,000 mg by mouth once daily. aspirin, enteric coated (ASPIRIN, ENTERIC COATED) 81 mg EC tablet Take 81 mg by mouth once daily. MULTI-VITAMIN ORAL Take 1 tablet by mouth once daily. [place] CARDIOMYOPATHY QUESTIONNAIRE (CQ-12) 1. Activity: A. Showering/bathing: Extremely limited Quite a bit limited Moderately limited Slightly limited Not at all limited Limited for other reasons or did not do the activity B. Walking 1 block on level ground: Extremely limited Quite a bit limited Moderately limited Slightly limited Not at all limited Limited for other reasons or did not do the activity C.Hurrying or jogging (as if to catch a bus): Extremely limited Quite a bit limited Moderately limited Slightly limited Not at all limited Limited for other reasons or did not do the activity 2. Over the past 2 weeks, how many times did you have swelling in your feet, ankles or legs when you woke up in the morning? Every morning 3 or more times per week but not every day 1-2 times per week less than once a week never over the past 2 weeks 3. Over the past 2 weeks, on average, how many times did you has fatigue limited your ability to dowhat you wanted? All of the time Several times per day At least once per day 3 or more times per week but not every day 1-2 times per week less than once a week never over the past 2 weeks 4. Over the past 2 weeks, on average, how many times has shortness of breath limited your ability to do what you wanted? All of the time Several times per day At least once per day 3 or more times per week but not every day 1-2 times per week less than once a week never over the past 2 weeks 5. Over the past 2 weeks, on average, how many times have your been forced to sleep sitting up in achair or with at least 3 pillows to prop you up because of shortness of breath? Every night 3 or more times per week but not every day 1-2 times per week less than once a week never over the past 2 weeks 6. Over the past 2 weeks, how much has your heart failure limited your enjoyment of life? It has extremely limited my enjoyment of life it has limited my enjoyment of life quite a bit it has moderately limited my enjoyment of life It has slightly limited my enjoyment of life It has not limited my enjoyment of life at all 7. If you had to spend the rest of your life with your heart failure the way it is right now, how would you feel about this? Not at all satisfied Mostly dissatisfied Somewhat satisfied Mostly satisfied Completely satisfied 8. How much does your heart failure affect your lifestyle? Please indicated how your heart failure may have limited your participation in the following activities over the past 2 weeks? A. Hobbies, recreational activities Severely limited Limited quite a bit Moderately limited Slightly limited Did not limit at all Does not apply or did not do for other reasons. 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 C. Visiting family or friends out of your home Severely limited Limited quite a bit Moderately limited Slightly limited Did not limit at all Does not apply or did not do for other reasons. CARDIOVASCULAR MEDICINE TESTING: CT 08/08/2021: IMPRESSION: 1. Dedicated 4D dynamic imaging of the mitral valve demonstrates a bileaflet mitral valve with prolapse of the posterior leaflet. The leaflets are mildly thickened, although not calcified. There is no significant annular or sub-annular calcification. Annular measurements as per the body of the report. Using the end-systolic phase, and simulating TMVR with a 23 mm John S3 valve with 1/3 of the valve above the annular plane (atrial), the estimated curtis-LVOT area is 2.1 cm2. 2. Normal caliber thoracic aorta with aortic atherosclerotic changes as described in the body of the report. No acute aortic pathology identified. 3. Patient with coronary artery disease status post CABG. One of the bypass grafts to the obtuse marginal branch is occluded. DARCY 08/08/2021: CONCLUSIONS: - Exam indication: Mitral Valve Assessment - The left ventricle is normal in size. Left ventricular systolic function is normal. EF = 60 5% (visual est.) - The right ventricle is normal in size. Right ventricular systolic function is normal. - The left atrial cavity is dilated. - The right atrial cavity is dilated. 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 Regurgitant orifice area (PISA) is 0.40 cm . P2 prolapse. - There is no patent foramen ovale as detected by Doppler. - Large (1.4cm) highly mobile echodensity (likely thrombus / complex atheroma) in the proximal descending aorta (clip 73). - Exam was compared with the prior echocardiographic exam performed on 08/08/21. New aortic findings as above - otherwise, similar findings. I have personally reviewed the Echocardiogram, Cardiac Catheterization/Percutaneous Coronary Intervention (PCI) and Cardiac CT Coronary Angiography. HISTORY Сергей Almeida is an 76 year old male with pmhx of: 2. Mitral regurgitation 3. Mitral valve prolapse 4. HFpEF- NYHA FC II 5. Ischemic cardiomyopathy 6. CAD s/p CABG x3 [facility] 04/30/2021: SWANSON-LAD and SVG-Dg patent, occluded SVG-OM1; RCA occluded; severe stenosis compromises a few small LCx branches (no revasc needs at this time due to no angina) 7. HTN 8. HLD 9. Hypothyroidism 10. Prostate CA 11. GERD 12. TIA ASSESSMENT: Mr. Almeida is a 76 year old male who presents today for severe mitral valve regurgitation and mitral valve clip evaluation. He has been seen by both Dr. Alegria and Dr. Kyle. Reports shortness of breath with exertion, especially when walking his dog briskly around the block, or when frequently going up and down a flight of stairs. He also experiences lightheadness with positional changes. He denies chest pain, orthopnea, palpitations, syncope, leg swelling, coughing and wheezing. IMPRESSION/PLAN: Per Dr. Alegria's review 76yo man w prior CABG, cath with no need for revasc at this time. DARCY 08/09/21 w severe MR due to P2 prolapse/flail. The origin of the MR is kind of at the medial portion of P2. Should have a good result w XTw at A2/P2. His symptoms are early/mild; he needs to think about whether he wants to fix this or follow clinically. Mr. Almeida has decided to medically manage his MR at this time and will follow- up with Dr. Alegria in 6 months with labs, ECG, and echo. His case will still be formally discussed at our TMTT meeting next Friday to finalize his plan. I have spoken with Сергей Almeida regarding the evaluation process for MitraClip. I explained to Сергей Almeida that this is a multidisciplinary evaluation to determine the best treatment plan for mitral regurgitation. I reviewed the commercially available Nelson MitraClip, including the clip model. I showed the animation of the MitraClip while explaining the procedure. I discussed the perceived benefits and risks of the procedure. SDM: A formal shared decision making discussion was conducted with the patient during which the benefitsand risks of the TAVR procedure were discussed along with consideration of the patient s values, preferences and wishes. The duration of the procedure will last about 2-3 hours and is under general anesthesia. You will have to lay flat on bedrest for at least 4-6 hours following the procedure. Activity restriction is no heavy lifting of more than 10 pounds for 1 week following MV clip and noextensive walking. Also, post procedure no driving for up to 1-2 weeks. Follow-up after mitral valve clip will be determined at the time of discharge. Dental clearance: Completed on 06/18/2021 and scanned into [employer] I have discussed with Сергей Almeida that once all of the testing has been completed, the results will be reviewed at our multidisciplinary team meeting and they will be notified of the recommendations. Notification will come from the physician or me and could take up to 1 week. If the team recommends a MitraClip procedure, scheduling the procedure could take up to 1-2 months from the time of the team recommendations. We also discussed signs and symptoms of increased shortness of breath and lower leg swelling shouldbe reported to the local physician right away and be treated accordingly. If hospitalization is required, then it should be done. We can be notified with this information and all efforts will be madeto expedite procedure accordingly if deemed an appropriate candidate. I spent a total of >60 minutes on the date of the service which included preparing to see the patient, [id number] patient care, completing clinical documentation, counseling and educating the patient/family/caregiver, independently interpreting results (not separately reported) and communicating results to the patient/family/caregiver. Amber Ta APRN.CNP documented in this encounterSuburban [facility]06-16-2022 Miscellaneous Notes* Telephone Encounter - Kateryna Dawson RN - 08/09/2021 12:14 PM EDT Images from the original note were not included. Mel Lobo MD P Hvi J3-4 Opd Nurses Pls let patient know overall labs look ok- normal electrolytes and kidney He does have pre-diabetes. Called and spoke to the patient, gave him the above the information, he verbalized understanding. Katreyna Dawson RN August 09, 2021 12:17 PM documented in this encounterSuburban [facility]06-16-[facility]22 History of Present illness Narrative* Pelon Kyle MD - 08/09/2021 8:21 AM EDT Images from the original note were not included. [facility] [place] DEPARTMENT OF CARDIAC SURGERY OUTPATIENT VISIT DATE August 09, 2021 OUTPATIENT VISIT SERVICE DATE: 08/09/2021 SERVICE TIME: 8:52 AM PCP: Hilton Jay DO ([facility]) [address] [place] [address] Referring Physician: Abhishek Alegria [address] [facility] [address] Patient Type: New Visit to Determine Surgery: Yes HPI: Mr. Сергей Almeida is a 76 year old male seen regarding candidacy for cardiac surgeryfor severe holosystolic MR. He is currently symptomatic and complains of shortness of breath. He has a hx of CABG. His MR is due to myxomatous valve and P2 prolapse. Patent grafts to left and small occluded RCA Last CT Result Conclusion CT CARDIAC W IVCON Exam End: 08/08/2021 2:08 PM (Final result) Impression: IMPRESSION: 1. Dedicated 4D dynamic imaging of the mitral valve demonstrates a bileaflet mitral valve with prolapse of the posterior leaflet. The leaflets are mildly thickened, although not calcified. There is no significant annular or sub-annular calcification. Annular measurements as per the body of the report. Using the end-systolic phase, and simulating TMVR with a 23 mm John S3 valve with 1/3 of the valve above the annular plane (atrial), the estimated curtis-LVOT area is 2.1 cm2. 2. Normal caliber thoracic aorta with aortic atherosclerotic changes as described in the body of the report. No acute aortic pathology identified. 3. Patient with coronary artery disease status post CABG. One of the bypass grafts to the obtuse marginal branch is occluded. [employer] Computer Science Teacher: ALISSA Transcribe Date/Time: Aug 08 2021 3:37P Dictated by : FORD LEIGH MD This examination was interpreted and the report reviewed and electronically signed by: FORD LEIGH MD on Aug 08 2021 4:18PM EST Complete Results Last ECHO Result Conclusion ECHO Collected: 08/08/2021 9:13 AM (Edited Result - FINAL) Impression: CONCLUSIONS: - Exam indication: Pre-up Mitral Clip - The left ventricle is mildly dilated. Left ventricular systolic function is hyperdynamic. EF = 74 5% (2D biplane) Left ventricular diastolic function was not evaluated due to >2+ MR. - The right ventricle is normal in size. Right ventricular systolic function is normal. - The left atrial cavity is dilated. 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 Regurgitant orifice area (PISA) is 0.41 cm . MR RV by PISA 93 mL (likely overestimated d/t MR predominance in late systole). MR RV by Quant Doppler 46 mL. - Estimated right ventricular systolic pressure is 43 mmHg consistent with mild pulmonary hypertension. Estimated right atrial pressure is 3 mmHg based on IVC assessment. - The patient has not had a prior CC echocardiographic exam for comparison. * * * Final (Updated) * * * Complete Results Impression: Severe MR sp CABG Plan: Reasonable to offer MitraClip Based on my evaluation he is a medium risk for cardiac surgery because of risk of incomplete revascand residual katherine opr ischemia. These findings will be communicated back to the requesting physician via electronic medical record Pelon Kyle MD documented in this encounterSuburban [facility]06-[facility]22 Miscellaneous Notes* Sedation Documentation - Marcie Acevedo RN - 08/08/2021 2:57 PM EDT Bite block paced documented in this encounterSuburban Community Hospital & [facility]06-[facility]2022 History of Present illness Narrative* Yvonne Bustamante RN - 08/08/2021 2:40 PM EDT AMBULATORY PATIENT EDUCATION TOPIC: DARCY READINESS TO LEARN COGNITIVE ABILITY: Alert and oriented MOTIVATION TO LEARN: Interested FAMILY SUPPORT: Unable to assess - Family not present INSTRUCTION PROVIDED TO: Patient PATIENT LEARNS BEST BY: Individual Instruction FACTORS AFFECTING LEARNING: None PHYSICAL LIMITATIONS AFFECTING LEARNING: None LEARNING RESPONSE DIAGNOSIS: Valve disease METHOD OF INSTRUCTION: Individual instruction PATIENT / FAMILY RESPONSE: Verbalizes understanding of: POST-PROCEDURE INSTRUCTIONS-Correct actionsto take to reduce post procedure complications PRE-PROCEDURE INSTRUCTIONS-Correct action to take to follow pre-procedure instructions FOLLOW-UP PLAN: Complete - No need for follow-up SUPPLEMENTAL MATERIAL: Post DARCY instructions given REFERRAL (RECOMMENDATION): None Electronically Signed By Yvonne Bustamante RN In Department: CARDIOLOGY documented in this encounterSuburban Community Hospital [facility]06-[facility] History of Present illness Narrative* RT Geoffrey(R) - 08/08/2021 1:45 PM EDT Radiology Service Progress Note PATIENT NAME: Сергей Almeida DATE OF SERVICE: August 08, 2021 TIME: 1:18 PM PATIENT IDENTITY VERIFICATION COMPLETED USING TWO (2) IDENTIFIERS: Name and Date of confirmedby patient verbally. FALL SCREENING: Has the patient had 2 falls in the last year or 1 fall with injury or currently using an Ambulatory Assistive Device (Walker, Cane, Wheelchair, Crutches, etc.)? No PATIENT GENDER DATA: Male PATIENT RELEVANT IMPLANT DATA REVIEWED: Not Applicable RADIOLOGY DEPARTMENT: General X-ray: Exam(s) Completed: Chest X-Ray PERIPHERAL IV DATA: Not applicable SIGNED BY: RT Geoffrey(R) August 08, 2021 1:18 PM documented in this encounterSuburban Community Hospital [facility]06-[facility]22 History of Present illness Narrative* RT Destini(R) - 08/08/2021 1:15 PM EDT Radiology Service Progress Note PATIENT NAME: Сергей Almeida DATE OF SERVICE: August 08, 2021 TIME: 2:06 PM PATIENT IDENTITY VERIFICATION COMPLETED USING TWO (2) IDENTIFIERS: Name and Date of confirmedby patient verbally and Name and Date of confirmed by identification band. FALL SCREENING: Has the patient had 2 falls in the last year or 1 fall with injury or currently using an Ambulatory Assistive Device (Walker, Cane, Wheelchair, Crutches, etc.)? No PATIENT GENDER DATA: Male PATIENT RELEVANT IMPLANT DATA REVIEWED: Yes RADIOLOGY DEPARTMENT: CT; Exam(s) Completed: Cardiac PERIPHERAL IV DATA: Site assessment: Clean,Dry and Intact, Site disposition Left in for next appointment SIGNED BY: RT Destini(R) August 08, 2021 2:06 PM * Aisha Garcia RN - 08/08/2021 1:15 PM EDT Radiology Service Progress Note DATE OF SERVICE: August 08, 2021 TIME: 1:49 PM PATIENT WEIGHT: 168LBS PATIENT IDENTITY VERIFICATION COMPLETED USING TWO (2) STANDARD IDENTIFIERS: Name and Date of confirmed by patient verbally and Name and Date of confirmed by identification band. FALL SCREENING: Has the patient had 2 falls in the last year or 1 fall with injury or currently using an Ambulatory Assistive Device (Walker, Cane, Wheelchair, Crutches, etc.)? No PATIENT GENDER DATA: Male ALLERGIES: Reviewed and unchanged CONTRAST ALLERGY: No EXAM: CT -CONTRAST INDUCED NEPHROPATHY RISK FACTORS: Patient age > 60 years CREATININE: Creatinine (POCT) Date Value Ref Range Status 08/08/2021 1.10 0.7 - 1.4 mg/dL Final eGFR (POCT) Date Value Ref Range Status 08/08/2021 >60 mL/min/1.73 m2 Final P.O.C.T. RESULTS: POC done: Yes, See Lab Tab August 08, 2021 TREATMENT: No Hydration needed. IV SITE: Ambulatory: A peripheral IV was started in the Right forearm with a Angio cath: 20 gauge. and A Saline lock was inserted per protocol IV SITE APPEARANCE: Clean,Dry and Intact SIGNATURE: Aisha Garcia RN PATIENT NAME: Сергей Almeida DATE: August 08, 2021 TIME: 1:49 PM documented in this encounterSub[facility] Instructions* Patient Instructions* Mel Lobo MD - 08/08/2021 12:07 PM EDT It was good to see you today! As we discussed, you likely have at least moderate mitral valve leakage based on your exam and yoursurface echo today. Will follow-up the result of your additional testing, include DARCY. Ultimately we will have a valve committee meeting to discuss risks vs. Benefits for different therapies (medical therapy vs. Minimally invasive vs. Open heart). Mel Lobo MD, [facility] Staff Exerciser, Advanced Heart Failure and Transplantation [facility] 08/08/2021 12:09 PM documented in this encounterSuburban [facility]06-[facility]22 History of Present illness Narrative* Mel Lobo MD - 08/08/2021 11:15 AM EDT Images from the original note were not included. [facility] [place] [facility] SECTION OF HEART FAILURE and CARDIAC TRANSPLANT MEDICINE OUTPATIENT VISIT DATE August 08, 2021 OUTPATIENT VISIT TYPE Consultation PRIMARY CARE PHYSICIAN: Hilton Jay DO ([facility]) [id number] [facility] [address] [place] [address] CHIEF COMPLAINT: Mitral valve prolapse HISTORY OF PRESENT ILLNESS: Consultation requested by Dr. Tabor for an opinion regarding mitral valve and tricuspid valveregurgitation. My final recommendations will be communicated back to the requesting physician by way of shared Medical record or letter to requesting physician via US mail. Сергей Almeida is a 76 year old male with a history of ischemic cardiomyopathy with preserved ejection fraction 60%, CAD s/p CABG in 1995 (SWANSON-LAD, SVG-diag, occluded SVG-OM1), mitral valve regurgitation (P2 prolapse/flail), mild aortic insufficiency, dyslipidemia, hypertension, CKDII, prostate cancer, kidney stone, GERD, history of TIA, and hypothyroidism. He has dyspnea with exertion with walking his dog. He is still able to do yard work- with a break every 15 to 20 minutes. He has LECHUGA with walking 1-2 flight of stairs- for example with carrying a load of laundry up a flight of stairs. HF Nursing Assessment: Interim Hospitalizations and/or ER visits: Chest Pain: no Skipping or irregular heartbeats: no Shortness of breath at rest: no Shortness of breath with activity: yes Cough: no Waking up in the middle of the night gasping for air: no Lightheadedness or dizziness: when he stands too quick after sitting for awhile Feeling like you are going to pass out: no Actually passing out: no Poor energy level: no Unintentional weight gain: no Unintentional weight loss: no Swelling in your legs,feet, abdomen: no Filling up quickly when you eat: no PAST MEDICAL HISTORY Diagnosis Date Benign neoplasm of colon CAD (coronary artery disease) Cataract Congestive heart failure (HCC) Hiatal hernia HLD (hyperlipidemia) Hypertension Hypothyroidism MVP (mitral valve prolapse) Prostate cancer (HCC) s/p prostatectomy 3 years ago Prostate disease PAST SURGICAL HISTORY Procedure Laterality Date CABG (3) VEIN GRAFTS & ARTERIAL GRAFT(S) 96 CORONARY ARTERY BYPASS GRAFT OPTX HUMERAL SHFT FX W/PLATE/SCREWS W/WOCERCLAGE 07/06 ORIF humerus RPR 1ST INGUN HRNA AGE 5 YRS/> REDUCIBLE 11-28-14 RIGHT TONSILLECTOMY HX SOCIAL HISTORY Social History Tobacco Use Smoking status: Never Smoker Smokeless tobacco: Never Used Substance Use Topics Alcohol use: Yes Comment: occasional Drug use: Not Currently FAMILY HISTORY Problem Relation Age of Onset Coronary Artery Disease Mother Heart Attack Mother Coronary Artery Disease Sister CABG Coronary Artery Disease Brother CABG Coronary Artery Disease Brother CABG ALLERGIES: ALLERGIES Allergen Reactions Bees Hives, Anaphylaxis Niacin Unknown CURRENT MEDICATIONS: MAGNESIUM ORAL Take 500 mg by mouth once daily. VITAMIN B COMPLEX-100 ORAL Take 1 tablet by mouth once daily. furosemide (LASIX) 40 mg tablet Take 40 mg by mouth once daily. ubidecarenone/vitamin E mixed (COQ10 SG 100 ORAL) Take 100 mg by mouth once daily. latanoprost (XELPROS) 0.005 % ophthalmic emulsion Use 1 Drop in both eyes daily at bedtime. cholecalciferol (VITAMIN D) 1,000 unit tab tablet Take 1,000 Units by mouth once daily. levothyroxine (SYNTHROID) 100 mcg tablet Take 100 mcg by mouth once daily. metoprolol tartrate, short acting, (LOPRESSOR) 25 mg tablet Take 12.5 mg by mouth twice daily. ramipril (ALTACE) 10 mg capsule Take 10 mg by mouth once daily. CRESTOR 10 mg tablet Take 5 mg by mouth once daily. omega-3 fatty acids 1,000 mg cap Take 2 g by mouth twice daily. Cinnamon Bark (CINNAMON) 500 mg cap Take 1,000 mg by mouth once daily. aspirin, enteric coated (ASPIRIN, ENTERIC COATED) 81 mg EC tablet Take 81 mg by mouth once daily. MULTI-VITAMIN ORAL Take 1 tablet by mouth once daily. sodium chloride 0.9 %, flush, (BD POSIFLUSH) syringe Inject 2-10 mL intravenously as directed. For Echo procedure REVIEW OF SYSTEMS: CONSTITUTION: Negative for: Weight loss or gain, Fever. Chills, Night sweats HEENT: Negative for: Hearing loss, Nosebleeds, Mouth sores, Trouble swallowing, Dry mouth RESPIRATORY: Positive for: Difficulty breathing Negative for: Cough GASTROINTESTINAL: Negative for: Melena, Diarrhea, Nausea, Abdominal distension, Early satiety MUSCULOSKELETAL: Negative for: Arthralgias, Myalgias NEUROLOGICAL: Negative for: Headaches, Dizziness SKIN: Negative for: Rash EYES: Negative for: Vision disturbance CARDIOVASCULAR: Negative for: Chest pain, Leg swelling, Arrhythmia, Presyncope GENITOURINARY: Negative for: Difficulty urinatiing PATIENT ENTERED DATA: No flowsheet data found. No flowsheet data found. No flowsheet data found. PHYSICAL EXAMINATION: BP 134/72 Pulse (!) 54 Ht 177.8 cm (5' 10) Wt 76.2 kg (168 lb) SpO2 99% BMI 24.11 kg/m General appearance: no acute distress, conversant Psych: Appropriate affect and insight; alert and oriented to person, place and time HENT: Normal appearing ears and nose; normal hearing Neck: No JVD at sitting;no carotid bruits;Trachea midline; FROM Lungs: Normal respiratory effort; CTAB CV: RRR, + 3/6 holosystolic murmur Abdomen: Soft, non-tender; no HSM Extremities: Trace lower extremity edema; Normal pulses, no clubbing or cyanosis Skin: No rash or ulcers; Normal temperature, turgor and texture Musculoskeletal: Normal gait CARDIOVASCULAR MEDICINE TESTIN08/08/2021 Echo: The left ventricle is mildly dilated. Left ventricular systolic function is hyperdynamic. EF = 74 5% (2D biplane) Left ventricular diastolic function was not evaluated due to >2+ MR. - The right ventricle is normal in size. Right ventricular systolic function is normal. - The left atrial cavity is dilated. 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 Regurgitant orifice area (PISA) is 0.41 cm . MR RV by PISA 93 mL (likely overestimated d/t MR predominance in late systole). MR RV by Quant Doppler 46 mL. - Estimated right ventricular systolic pressure is 43 mmHg consistent with mild pulmonary hypertension. Estimated right atrial pressure is 3 mmHg based on IVC assessment. Cardiac cath 04/30/2021 DARCY 03/28/2021 IMPRESSION: Сергей Almeida is a 76 year old male with a history of ischemic cardiomyopathy with preserved ejection fraction 60%, CAD s/p CABG in 1995 (SWANSON-LAD, SVG-diag, occluded SVG-OM1), mitral valve regurgitation (P2 prolapse/flail), mild aortic insufficiency, dyslipidemia, hypertension, CKDII, prostate cancer, kidney stone, GERD, history of TIA, and hypothyroidism. Patient presents with LECHUGA and reduced physical stamina likely reflective of progressive mitral valve disease. He appears to have mitral valve prolapse resulting in at least moderate- severe MR. Additionally he has an ostial LMT lesion that compromises flow into an unprotected dominant LCx. NYHA Functional Class: Unable to assess as activity level is limited due to multifactorial changes Stage: A heart failure (at risk of) Target weight: 165lb (near euvolemic) Heart Failure specific medications (list current, note updates or changes, note prior intolerance): BB: Metoprolol tartrate 12.5mg BID ACEI/ARB/ARNI: Ramipril 10mg daily MRA: - SGLT2: - Diuretic: Lasix 40mg daily Digoxin: - Vasodilators: - Anti-arrhythmics: - Ivabradine: - Other anti-HTN: - PLAN AND RECOMMENDATIONS: # Mitral valve prolapse: - continue evaluation as planned - consideration for surgical MVr + CABG to LCx vs. Percutaneous intervention; I favor the former given degenerative valve disease; will d/w committee after full evaluation - appears near euvolemic clinically at this time - on reasonable regimen with PORFIRIO and BB # CAD s/p CABG: - maximal statin - aspirin - consider revascularization to ostial LMT as flow to LCx is compromised; reportedly SVG-OM is occluded # HTN: - BP currently at goal # Dyslipidemia: - high intensity statin I personally interviewed, confirmed and edited the above information as obtained by others We discussed natural history of disease, current treatment options, and future potential treatment options. We discussed diet, exercise, other non-medical management as above. Mel Lobo MD [facility] Section Of Heart Failure and Cardiac Transplant Medicine [facility] [place] [facility] Desk [id number] [place] [address] documented in this encounterSuburban [facility]06-15-[facility] History of Present illness Narrative* SARI Valdovinos - 08/08/2021 7:15 AM EDT Images from the original note were not included. [facility] [place] [facility] Department of Cardiovascular Medicine SECTION OF INTERVENTIONAL CARDIOLOGY OUTPATIENT VISIT DATE August 06, 2021 OUTPATIENT VISIT TYPE NEW PRIMARY CARE PHYSICIAN: Kateryna Doyle [address] [facility] [address] [place] [address] REFERRING PHYSICIAN: Dax Rodriguez MD ([facility]) [address] [facility] [address] [facility] [address] CHIEF COMPLAINT: No chief complaint on file. HISTORY OF PRESENT ILLNESS: Mr. Almeida is a 76 year old male who presents today re DMR. NURSING INTAKE: PMHx Moderate MR MVP HFpEF CAD s/p CABG recent cath 04/30/21 shows total occlusion of SVG-1st OM HLD HTN CKD II Per Dr. Alegria's review: Limited DARCY, no 3D images. P2 prolapse/small flail w significant MR (eccentric so probably underestimated outside). MitraClip is most probably feasible, would confirm w a proper DARCY here. Cath review; SWANSON-LAD and SVG-Dg patent; RCA occluded; severe stenosis compromises a few small LCx branches. Would consider LMT PCI if symptoms warrant (sounds like no based on your Hx below). GFR: 55 Risk factors for coronary artery disease hyperlipidemia, hypertension, family history of CAD He denies chest pain, orthopnea, PND, palpitations, lightheadedness, syncope, claudication, leg swelling, cough and wheezing. Diet / Nutrition: regular Weight: stable Exercise: Walking 10/08/2018 Stress echo (syngo) No report 02/02/2019 Carotid duplex (syngo) No report 03/22/2020 TTE (syngo) 03/28/2021 DARCY (syngo) 04/30/2021 Cardiac catheterization (syngo) 04/10/2021 OSH labs: PAST MEDICAL HISTORY Diagnosis Date Benign neoplasm of colon CAD (coronary artery disease) Cataract Hiatal hernia HLD (hyperlipidemia) Hypertension Hypothyroidism MVP (mitral valve prolapse) Prostate cancer (HCC) s/p prostatectomy 3 years ago Prostate disease PAST SURGICAL HISTORY Procedure Laterality Date CABG (3) VEIN GRAFTS & ARTERIAL GRAFT(S) 96 OPTX HUMERAL SHFT FX W/PLATE/SCREWS W/WOCERCLAGE 07/06 ORIF humerus RPR 1ST INGUN HRNA AGE 5 YRS/> REDUCIBLE 01-21- RIGHT TONSILLECTOMY HX SOCIAL HISTORY Social History Tobacco Use Smoking status: Never Smoker Smokeless tobacco: Never Used Substance Use Topics Alcohol use: Yes Comment: occasional Drug use: Not Currently FAMILY HISTORY Problem Relation Age of Onset Coronary Artery Disease Mother Heart Attack Mother Coronary Artery Disease Sister CABG Coronary Artery Disease Brother CABG Coronary Artery Disease Brother CABG ALLERGIES: ALLERGIES Allergen Reactions Bees Hives, Anaphylaxis Niacin Unknown MEDICATIONS: MAGNESIUM ORAL Take 500 mg by mouth once daily. VITAMIN B COMPLEX-100 ORAL Take 1 tablet by mouth once daily. furosemide (LASIX) 40 mg tablet Take 40 mg by mouth once daily. ubidecarenone/vitamin E mixed (COQ10 SG 100 ORAL) Take 100 mg by mouth once daily. latanoprost (XELPROS) 0.005 % ophthalmic emulsion Use 1 Drop in both eyes daily at bedtime. cholecalciferol (VITAMIN D) 1,000 unit tab tablet Take 1,000 Units by mouth once daily. levothyroxine (SYNTHROID) 100 mcg tablet Take 100 mcg by mouth once daily. metoprolol tartrate, short acting, (LOPRESSOR) 25 mg tablet Take 12.5 mg by mouth twice daily. ramipril (ALTACE) 10 mg capsule Take 10 mg by mouth once daily. CRESTOR 10 mg tablet Take 5 mg by mouth once daily. omega-3 fatty acids 1,000 mg cap Take 2 g by mouth twice daily. Cinnamon Bark (CINNAMON) 500 mg cap Take 1,000 mg by mouth once daily. aspirin, enteric coated (ASPIRIN, ENTERIC COATED) 81 mg EC tablet Take 81 mg by mouth once daily. MULTI-VITAMIN ORAL Take 1 tablet by mouth once daily. sodium chloride 0.9 %, flush, (BD POSIFLUSH) syringe Inject 2-10 mL intravenously as directed. For Echo procedure REVIEW OF SYSTEMS: GENERAL: no fever, no chills and no change in weight HEENT: no headaches, no hearing loss, no difficulty swallowing SKIN: no rashes, no lesions and no ulcers RESPIRATORY: SEE HPI CARDIOVASCULAR: See HPI GASTROINTESTINAL: no abdominal pain, no nausea and no vomiting GENITOURINARY: no dysuria, no frequency and no nocturia MUSCULOSKELETAL: no joint pain, no joint swelling and no muscle pain or myalgias NEUROLOGIC: no numbness, no tingling and no sensation of pins and needles HEMATOLOGY: no bruising easily, no prolonged bleeding and no anemia ENDOCRINE: no cold or heat intolerance, no polyuria and no polydipsia PSYCH: no sleep disturbance, no mood disorders and no recent psychosocial stressors PHYSICAL EXAMINATION: BP 143/74 Pulse 61 Resp 18 Ht 5' 10 (1.78m) Wt 168 lb (76.2kg) SpO2 98[RA]% BMI 24.11 kg/(m^2). General: Well appearing, in no acute distress, speaking in complete sentences. Skin: No clubbing, no cyanosis. Head/Eyes: Extra ocular movements intact Mouth: Teeth in good repair. Neck: No jugular venous distention, no carotid bruits, carotids have a normal upstroke, no palpablethyromegaly. Lungs: Clear to auscultation and no rales Heart: Regular rhythm, PMI not displaced, severe MR murmur apex PV Pulses:Pulses intact Abdomen: Soft, nontender, bowel sounds normal, no palpable organomegaly, no bruits. Extremities: No peripheral edema . Grade 2/4 distal pulses bilaterally. Edema Scale: No Musculoskeletal: Normal gait and ambulation Neuro: Oriented to time, place and person IMPRESSION: It was my pleasure to see Mr. Almeida today regarding severe degenerative mitral valve regurgitation. Mr. Almeida is a pleasant 76-year-old gentleman who had coronary bypass grafting surgery a number ofyears ago. His most recent coronary angiogram, which I reviewed, demonstrates patent SWANSON-LAD, patent SVG-diagonal, and occluded RCA. There is severe left main trunk stenosis that compromises a few small circumflex branches. I also reviewed a DARCY that demonstrates a P2 segment prolapse with a small area of flail and significant MR that is quite eccentric and likely underestimated on his outside echocardiogram. Otherwise,the echo overall is somewhat limited. Clinically, he is overall doing well. He is quite active including doing work in the yard. He does develop some exertional dyspnea and when this happens, he rests and things get better. No exertionalchest discomfort. No orthopnea or PND. No lower extremity swelling. Physical exam is as above. ASSESSMENT AND PLAN: It was my pleasure to see Mr. Almeida today regarding severe DMR. I am still awaiting a DARCY to better understand his mitral valve pathology and whether mitral valve clipping is anatomically feasible. If not, we will of course also analyze for catheter-based mitral valve replacement. The decision for treatment of his mitral valve should really be based upon symptoms, LV dilation orLV dysfunction at his age and redo status. As he has neither LV dysfunction nor LV dilation, the treatment would really depend upon symptoms. While he does have symptoms, he is not sure yet whether these are limiting enough to go through a procedure if anatomically feasible. I would have him take some more time to think about his symptom quality and whether this is something he would like to havetreated. Please feel free to contact me with any questions. documented in this encounterSub[facility]04-29-[facility] History of Present illness Narrative* Elizabeth Gonzalez APRN.BREANN - 06/22/2021 7:37 AM EDT Images from the original note were not included. documented in this encounterSuburban [facility]11-26-2014 Miscellaneous Notes* Telephone Encounter - Fiona Apodaca LPN - 01/19/2014 7:21 AM EST spoke directly to patient to confirm arrival time of 1030 on 01-21-14 at [facility], NPO midnight. pt verbalizes understanding and agrees. Fiona Apodaca LPN * Telephone Encounter - Reinaldo Garcia Lpn - 01/11/2014 8:49 AM EST Pt called noting that he is having intolerable pain which improves if he is lying down. Pt unsure if he will be able to wait until 01/21 as currently scheduled. Pt seeking to move procedure to soonerdate if at all possible. * Telephone Encounter - Aretha Arcos Rn - 01/07/2014 11:53 AM EST Pt scheduled at [facility] per pt and pts who is a former [facility] employee. Spoke with pt and gave him surgery date options. OR unable to accomodate 01/12 so pt scheduled for 01/21. Surgery booklet mailed to pts home address. Surgery for [facility] scheduled as follows: Class right inguinal hernia repair scheduled for 01/21/2014 @ 11. Patient to arrive @ [facility] at 0930 am. Spoke to Abril NICHOLS 01/14/14 @ 11 Orders, consent, and current H&P faxed to: [facility] [phone] & [phone] Referral placed in Epic: Yes IP appointment placed in Epic: Yes Pt was notified of all dates/times and instructed to call our office immediately with any concerns or questions. [facility] booklet and instructions given. Is update H&P needed? no Cardiac Clearance N/A Kidney center notified: N/A Aretha Arcos RN documented in this encounterSuburban [facility] Evaluation note* Diagnosis Onset Date Resolution Status Dyspnea on exertion acute Essential hypertension chron ic Hyperlipidemia chronic Nonrheumatic mitral (valve) prolapse chronic H/O coronary artery bypass surgery November, resolved [facility] Work Phone: 1(368) 840-768910-01-1995 Evaluation note* Diagnosis Onset Date Resolution Status Pain and swelling of right forearm acute Essential hypertension chron ic Hyperlipidemia chronic Nonrheumatic mitral (valve) prolapse chronic H/O coronary artery bypass surgery November, resolved [facility] Work Phone: 1(925) 549-734810-01-1995 Evaluation note* Diagnosis Onset Date Resolution Status Essential hypertension chron ic Hyperlipidemia chronic Nonrheumatic mitral (valve) prolapse chronic H/O coronary artery bypass surgery November, resolved Pain and swelling of right forearm resolved History of coronary artery stent placement September 14, 2021 acute Essential hypertension chron ic Nonrheumatic mitral (valve) prolapse chronic H/O coronary artery bypass surgery November, resolved [facility] Work Phone: 1(206) 338-501510-01-1995 Evaluation note* Diagnosis Onset Date Resolution Status Atrial fibrillation, new onset acute S/P mitral valve clip implantation acute Essential hypertension chron ic Hyperlipidemia chronic H/O coronary artery bypass surgery November, resolved [facility] Work Phone: Discharge summary Author Dr. Lemus [facility] May 04, 2022 9:16am Note Date/Time May 04, 2022 9:1 6am [facility] Medical Records Department [address] [place] [id number] Discharge Summary 05/04/22 0915 MR#: [id number] Acct: [id number] Name: СЕРГЕЙ ALMEIDA Rep #:[id number] : [id number] From: Jose Lemus MD PCP: Dr. Hilton Jay DO Status:AD M JEFFREY Location: [place] [address] Providers Date of Admission: 05/03/22 Date of Discharge: 05/04/22 Primary Care Physician: Dr. Hilton Jay DO Reason For Visit: NEW ONSET AFIB Diagnosis Discharge Diagnosis (1) Atrial fibrillation, new onset: Status: Acute Code(s): I48.91 - Unspecified atrial fibrillation Plan Patient is a 77-year-old gentleman admitted with abdominal discomfort found to be in A-fib with RVR 1. New onset A-fib ? Patient has been admitted to monitored bed for subsequent evaluation. As partof his management ordered TSH serial cardiac enzymes 2D echo. Patient convertedback to sinus rhythm prior to being admitted. 2D echo will be ordered as part of his evaluation. Patient was also started on systemic anticoagulation Eliquis2.5 mg p.o. twice daily ? 05/04/2022 Patient was seen in consultation by cardiology Dr. Paula recommendeddiscontinuation of aspirin and increasing Eliquis dose to 5 mg p.o. twice daily. Patient also to undergo DARCY as outpatient to evaluate DARCY as outpatient to evaluate his mitral regurgitation 2. Coronary artery disease ? With previous CABG and recent PCI with LORENZA to severe disease in the ostium of the left main trunk in December 2021 at [facility] 3. Dyslipidemia -Patient is on statin therapy, continued at home dose 4. Hypertension - Blood pressure controlled, home medications continued with dose adjustment as needed 5. Hypothyroidism - Patient is on levothyroxine home dose continued. 6. History of prostate CA ? Currently remission 7. DVT prophylaxis ? Placed on Eliquis Medications at Discharge Home Medications cholecalciferol (vitamin D3) 25 mcg (1,000 unit) tablet 1,000 unit PO DAILY SUPPLEMENT 01/14/14 multivitamin with folic acid 400 mcg tablet 1 tab PO DAILY SUPPLEMENT 01/14/14 latanoprost 0.005 % eye drops 1 drp EACH EYE QHS EYES 01/03/17 omega-3 fatty acids-fish oil 684 mg-1,200 mg capsule,delayed release 1 ea PO DAILY SUPPLEMENT 01/03/17 cinnamon bark 500 mg capsule 500 mg PO DAILY 10/07/18 coenzyme [id number] 100 mg-5 unit capsule 1 cap PO DAILY 10/07/18 magnesium oxide 500 mg capsule 500 mg PO DAILY 10/07/18 vitamin B complex 1 tab PO DAILY 10/07/18 nitroglycerin 0.4 mg sublingual tablet (Nitrostat) 0.4 mg sublingual Q5M PRN chest pain #25 tabs 12/07/19 furosemide 40 mg tablet (Lasix) 40 mg PO DAILY #90 tabs 03/15/21 metoprolol tartrate 25 mg tablet 12.5 mg PO BID BP #90 tabs 06/19/21 rosuvastatin 5 mg tablet 5 mg PO QHS cholesterol #90 tabs 06/27/22 levothyroxine 100 mcg tablet 100 mcg PO DAILY THYROID #90 tabs 09/06/21 clopidogrel 75 mg tablet 75 mg PO DAILY 09/18/21 epinephrine 0.3 mg/0.3 mL injection, auto-injector 0.3 mg IM X1 PRN Allergic Reaction 09/20/21 amlodipine 2.5 mg tablet 2.5 mg PO DAILY 12/20/21 apixaban 5 mg tablet (Eliquis) 5 mg PO BID 30 days #60 tabs 05/04/22 Hospital Course Summary of Care Provided Minutes Spent on Discharge: 38 Physical Exam Narrative GENERAL: cooperative HEENT: Atraumatic; normocephalic EYES; Anicteric, Normal Conjunctiva NECK; supple, normal thyroid, RESPIRATORY: Diminished to auscultation CARDIOVASCULAR: Regular S1 S2, GI: soft, normoactive bowel sounds, : No Renal angle tenderness; EXTREMITIES: No edema, no clubbing, MUSCULOSKELETAL: no muscle wasting NEURO: Awake; no lateralizing signs. SKIN: No Rash PSYCH; Flat affect Weight / BMI Weight Weight: 79.1 kg Body Mass Index (BMI) 25.0 ABG / Lab / Microbiology Data Result Diagrams: 05/04/22 06:37 05/04/22 06:37 Laboratory: Laboratory Results - last 24 hr 05/03/22 09:05: WBC 10.3, RBC 5.38, Hgb 16.4, Hct 50.4, MCV 93.7, MCH 30.5, MCHC32.5, RDW Std Deviation 50.5 H, RDW Coeff of Darian 14.6, Plt Count 244, MPV 10.7 05/03/22 09:05: PT 13.5, INR 1.1, APTT 25.9 05/03/22 09:05: Sodium 143, Potassium 3.8, Chloride 106, Carbon Dioxide 27.0, Anion Gap 10, BUN 21 H, Creatinine 1.34 H, Estim Creat Clear Calc 46.15, Est GFR(MDRD) Af Amer 66, Est GFR (MDRD) Non-Af 55 L, BUN/Creatinine Ratio 15.7, Glucose 125 H, Calcium 9.6, Total Bilirubin 1.00, AST 28, ALT 35, Alkaline Phosphatase 50, Troponin I High Sens 13, Total Protein 7.5, Albumin 3.7, Globulin 3.8, Albumin/Globulin Ratio 1.0, Lipase 143 05/03/22 12:13: Troponin I High Sens 13 05/03/22 12:13: TSH 1.95 05/03/22 14:40: Troponin I High Sens 14 05/04/22 06:37: WBC 9.6, RBC 4.27 L, Hgb 13.0, Hct 40.6, MCV 95.1 H, MCH 30.4, MCHC 32.0, RDW Std Deviation 51.2 H, RDW Coeff of Darian 14.6, Plt Count 188, MPV 10.8, Immature Gran % (Auto) 0.300, Neut % (Auto) 58.8, Lymph % (Auto) 24.0, Dougherty % (Auto) 11.1 H, Eos % (Auto) 5.2 H, Baso % (Auto) 0.6, Absolute Neuts (auto) 5.6, Absolute Lymphs (auto) 2.30, Nucleated RBC % 0 05/04/22 06:37: Sodium 142, Potassium 4.2, Chloride 112 H, Carbon Dioxide 25.0, Anion Gap 5, BUN 18, Creatinine 1.07, Estim Creat Clear Calc 57.80, Est GFR (MDRD) Af Amer 86, Est GFR (MDRD) Non-Af 71, BUN/Creatinine Ratio 16.8, Glucose 87, Calcium 8.2 L, Magnesium 2.0 Radiography Diagnostic Testing: Radiology Impression Chest/Abdomen/Pelvis CTA 05/03/22 09:24 IMPRESSION: No evidence of aneurysmal dilatation of the thoracic or abdominal aorta. Atherosclerotic plaque formation throughout. No evidence of dissection. Moderate sized hiatal hernia. Electronically Signed: Babak Samuels MD at 11:00 EST , Echocardiogram 05/03/22 12:38 Interpretation Summary Normal LV size. Mild concentric left ventricular hypertrophy. The left ventricular ejection fraction is 60 %. Stage 3 diastolic dysfunction. The left atrium is severely enlarged. The right atrium is moderately enlarged. Mild mitral valve prolapse, posterior leaflet Moderately severe (3+) anteriorly directed mitral valve insufficiency. Mild to moderate (1-2+) tricuspid valve insufficiency. Pulmonary artery systolic pressure is 58 mmHg. Mild (1+) aortic valve insufficiency. Moderate (2+) pulmonic valve insufficiency. Ordering Physician: Jose Lemus Referring Physician: Hilton Jay M.D. Performed By: Kelsy Chapman RCS D/C Instructions Discharge Diet: Low fat / Low cholesterol Discharge Activity: Return to Normal Activity Call your doctor if you observe: Fever of 101 or Higher, Shortness of breath, Fainting spells and Chest pain Meaningful Use Info Meaningful Use Diagnoses (Choose all that apply): None applicable Discharge Plan Admission Admit Date/Time: 05/03/22 11:36 Attending Provider: Jose Lemus Primary Care Provider: Hilton Jay Discharge Orders/Prescriptions Prescriptions: New Eliquis 5 mg Tablet 5 mg PO BID 30 Days Qty: 60 0RF Continued furosemide [Lasix] 40 mg tablet 40 mg PO DAILY Qty: 90 3RF amlodipine 2.5 mg tablet 2.5 mg PO DAILY cholecalciferol (vitamin D3) 1,000 UNIT tablet 1,000 unit PO DAILY multivitamin with folic acid 1 TABLET tablet 1 tab PO DAILY latanoprost 1 DROP bottle 1 drp EACH EYE QHS omega-3 fatty acids-fish oil 1 EACH capsule,delayed release(DR/EC) 1 ea PO DAILY vitamin B complex 1 EACH tablet 1 tab PO DAILY cinnamon bark 500 MG capsule 500 mg PO DAILY coenzyme [id number] 1 EACH capsule 1 cap PO DAILY magnesium oxide 500 MG capsule 500 mg PO DAILY epinephrine 0.3 mg/0.3 mL auto-injector 0.3 mg IM X1 PRN (Reason: Allergic Reaction) clopidogrel 75 mg Tablet 75 mg PO DAILY nitroglycerin [Nitrostat] 0.4 mg tablet, sublingual 0.4 mg SUBLINGUAL Q5M PRN (Reason: chest pain) Qty: 25 3RF metoprolol tartrate 25 mg tablet 12.5 mg PO BID Qty: 90 3RF rosuvastatin 5 mg tablet 5 mg PO QHS Qty: 90 3RF levothyroxine 100 mcg tablet 100 mcg PO DAILY Qty: 90 3RF Discontinued aspirin [Adult Low Dose Aspirin] 81 mg tablet,delayed release (DR/EC) 81 mg PO QDAY Qty: 90 3RF Referrals / Follow Up: Hilton Jay DO [Primary Care Provider] - Disposition Disposition (needs filled in before D/C Order can be placed): Home, Self Care Charges/Coding Visit Charges Inpatient E&M: 75508 Disch Hosp >30min 05/04/22 0916 <Electronically signed by Jose Lemus MD> Cosigner Signature (if applicable): CC: Dr. Jose Lemus MD; Dr. Hilton Jay DO~ Signed [facility] Work Phone: Evaluation note* Diagnosis Mitral valve prolapse- Primary Mitral valve disorders Non-rheumatic mitral regurgitation Mitral valve disorders 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 S/P CABG x 3 Postsurgical aortocoronary bypass status Hypertensive kidney disease with CKD (chronic kidney disease) stage II Unspecified hypertensive kidney disease with chronic kidney disease stage I through stage IV, or unspecified [facility]* Diagnosis Shortness of breath Nonrheumatic mitral valve regurgitation Chronic diastolic heart failure (HCC) Chronic diastolic heart failure [facility]* Diagnosis Shortness of breath Nonrheumatic mitral valve regurgitation Chronic diastolic heart failure (HCC) Chronic diastolic heart failure documented in this encounter [facility] note* Diagnosis Nonrheumatic mitral valve regurgitation- Primary Hypertensive heart disease with heart failure (HCC) Unspecified hypertensive heart disease with heart failure 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 documented in this encounter [facility] noteNo assessment information availableWKettering [facility] Work Phone: Evaluation note* Diagnosis Non-rheumatic mitral regurgitation- Primary Mitral valve disorders 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 documented in this encounter [facility] note* Diagnosis Severe mitral regurgitation- Primary Mitral valve disorders Acute on chronic combined systolic and diastolic congestive heart failure (HCC) Acute on chronic combined systolic and diastolic heart failure Goals of care, counseling/discussion Other specified counseling Essential hypertension Unspecified essential hypertension Hx of CABG Postsurgical aortocoronary bypass status Non-rheumatic mitral regurgitation Mitral valve disorders [facility] Diagnosis Mitral regurgitation due to cusp prolapse- Primary Mitral valve disorders Shortness of breath Nonrheumatic mitral valve regurgitation Chronic diastolic heart failure (HCC) Chronic diastolic heart failure Non-rheumatic mitral regurgitation Mitral valve disorders [facility]* Diagnosis Mitral valve prolapse- Primary Mitral valve disorders Non-rheumatic mitral regurgitation Mitral valve disorders [facility]* Diagnosis Chronic combined systolic and diastolic congestive heart failure (HCC)- Primary Chronic combined systolic and diastolic heart failure Severe mitral regurgitation Mitral valve disorders S/P coronary artery stent placement Postsurgical percutaneous transluminal coronary angioplasty status Goals of care, counseling/discussion Other specified counseling Essential hypertension Unspecified essential hypertension Hx of CABG Postsurgical aortocoronary bypass status [facility] Diagnosis Onset Date Resolution Status Atrial fibrillation, new onset acute Dyslipidemia acute Mitral regurgitation acute Pulmonary hypertension acute Essential hypertension chron ic Nonrheumatic mitral (valve) insufficiency chronic History of coronary artery stent placement September 14, 2021 resolved Atrial fibrillation, new onset acute Mitral regurgitation acute Essential hypertension chron ic H/O coronary artery bypass surgery November, resolved [facility] Work Phone: Evaluation note* Diagnosis Non-rheumatic mitral regurgitation- Primary Mitral valve disorders [facility]* Diagnosis Severe mitral regurgitation- Primary Mitral valve disorders [facility]* Diagnosis Preop cardiovascular exam- Primary Pre-operative cardiovascular examination Nonrheumatic mitral valve regurgitation 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 Paroxysmal atrial fibrillation (HCC) Atrial fibrillation Nonrheumatic mitral valve regurgitation [facility]* Diagnosis Encounter for preoperative anesthesiology assessment for cardiac surgery- Primary Chronic combined systolic and diastolic congestive heart failure (HCC) Chronic combined systolic and diastolic heart failure Paroxysmal atrial fibrillation (HCC) Atrial fibrillation Nonrheumatic mitral valve regurgitation [facility]* Diagnosis Nonrheumatic mitral valve regurgitation 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 Chronic combined systolic and diastolic congestive heart failure (HCC) Chronic combined systolic and diastolic heart failure [facility]* Diagnosis Severe mitral regurgitation- Primary Mitral valve disorders [facility]* Diagnosis Chronic combined systolic and diastolic congestive heart failure (HCC)- Primary Chronic combined systolic and diastolic heart failure Non-rheumatic mitral regurgitation Mitral valve disorders S/P mitral valve clip implantation Paroxysmal atrial fibrillation (HCC) Atrial fibrillation 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 S/P coronary artery stent placement Postsurgical percutaneous transluminal coronary angioplasty status Essential hypertension Unspecified essential hypertension Hyperlipidemia, unspecified hyperlipidemia type documented [facility]* Diagnosis Onset Date Resolution Status Atrial fibrillation, new onset acute Dyslipidemia acute Mitral regurgitation acute Pulmonary hypertension acute Essential hypertension chron ic Nonrheumatic mitral (valve) insufficiency chronic History of coronary artery stent placement September 14, 2021 resolved Atrial fibrillation, new onset acute Mitral regurgitation acute Essential hypertension chron ic H/O coronary artery bypass surgery November, resolved Atrial fibrillation, new onset acute S/P mitral valve clip implantation acute Essential hypertension chron ic Hyperlipidemia chronic H/O coronary artery bypass surgery November, resolved [facility] Work Phone: Evaluation note* Diagnosis Aortic valve disorder- Primary Aortic valve disorders Heart failure due to valvular disease, acute on chronic, diastolic (HCC) documented [facility] Author Dr. Lemus [facility] May 03, 2022 12:16pm Note Date/Time May 03, 2022 11: 49am [facility] Medical Records Department [address] [place] [id number] H&P Exam - Hospitalist 05/03/22 1149 MR#: [id number] Acct: [id number] Name: СЕРГЕЙ ALMEIDA Rep #:[id number] : 1945 77 From: Jose Lemus MD PCP: Dr. Hilton Jay, DO Status:AD M JEFFREY [facility] H[facility] - General General Date of Admission: 05/03/22 Date of Service: 05/03/22 Chief Complaint: Pulmonary discomfort HPI Narrative СЕРГЙЕ ALMEIDA, is a 77 M with abdominal discomfort. Patient has significant pastcardiac history including coronary artery disease with previous CABG and recent PCI with LORENZA [facility] Patient woke up on the morning of his admission with some discomfort in the mid abdomen. He did experience diaphoresis and felt patient was pale. Patient was brought to the emergency department as a result found to be in A-fibwith RVR apparently new. Did receive Lopressor 12.5x1 converted to sinus rhythmgiven his past significant cardiac history decision was made to admit patient 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 Elevated PSA Essential hypertension Hyperlipidemia Hypothyroidism Nonrheumatic mitral (valve) insufficiency Nonrheumatic mitral (valve) prolapse Old inferolateral myocardial infarction Prostate cancer Urgency-frequency syndrome Home Medications cholecalciferol (vitamin D3) 25 mcg (1,000 unit) tablet 1,000 unit PO DAILY SUPPLEMENT 01/14/14 [History Last Taken 05/02/22] multivitamin with folic acid 400 mcg tablet 1 tab PO DAILY SUPPLEMENT 01/14/14 [History Last Taken 05/02/22] latanoprost 0.005 % eye drops 1 drp EACH EYE QHS EYES 01/03/17 [History Last Taken 05/02/22] omega-3 fatty acids-fish oil 684 mg-1,200 mg capsule,delayed release 1 ea PO DAILY SUPPLEMENT 01/03/17 [History Last Taken 05/02/22] cinnamon bark 500 mg capsule 500 mg PO DAILY 10/07/18 [History Last Taken 05/02/22] coenzyme [id number] E 100 mg-5 unit capsule 1 cap PO DAILY 10/07/18 [History Last Taken 05/02/22] magnesium oxide 500 mg capsule 500 mg PO DAILY 10/07/18 [History Last Taken 05/02/22] vitamin B complex 1 tab PO DAILY 10/07/18 [History Last Taken 05/02/22] nitroglycerin 0.4 mg sublingual tablet (Nitrostat) 0.4 mg sublingual Q5M PRN chest pain #25 tabs 12/07/19 [Rx Last Taken Unknown] aspirin 81 mg tablet,delayed release (Adult Low Dose Aspirin) 81 mg PO QDAY #90 tabs 03/15/21 [Rx Last Taken 05/02/22] furosemide 40 mg tablet (Lasix) 40 mg PO DAILY #90 tabs 03/15/21 [Rx Last Taken 05/02/22] metoprolol tartrate 25 mg tablet 12.5 mg PO BID BP #90 tabs 06/19/21 [Rx Last Taken 05/02/22] rosuvastatin 5 mg tablet 5 mg PO QHS cholesterol #90 tabs 08/20/21 [Rx Last Taken 05/02/22] levothyroxine 100 mcg tablet 100 mcg PO DAILY THYROID #90 tabs 09/06/21 [Rx Last Taken 05/02/22] clopidogrel 75 mg tablet 75 mg PO DAILY 09/18/21 [History Last Taken 05/02/22] epinephrine 0.3 mg/0.3 mL injection, auto-injector 0.3 mg IM X1 PRN Allergic Reaction 09/20/21 [History Last Taken Unknown] amlodipine 2.5 mg tablet 2.5 mg PO DAILY 12/20/21 [History Last Taken 05/02/22] Allergy/AdvReac Type Severity Reaction Status Date / Time bee venom protein (honey bee) Allergy Unknown hives/anaph Verified 05/03/22 09:01 ylaxis ramipril Allergy Angioedema Verified 05/03/22 09:01 Family History Father , of Rohini's disease Burleson's disease Mother , Age 60 of [place] CAD (coronary artery disease) Myocardial infarction Brother CAD (coronary artery disease) history of cabg Brother CAD (coronary artery disease) Stented coronary artery Diabetes Sister CAD (coronary artery disease) Myocardial infarction Hypertension Surgical History H/O coronary artery bypass surgery (11/1994) H/O prostatectomy History of coronary artery stent placement (09/14/21) History of left heart catheterization (04/30/21) Social History Smoking Status: Former smoker alcohol intake: current alcohol intake frequency: other Alcohol type: beer and wine caffeine: Yes Type: coffee Number of servings: 3 ROS ROS Narrative GENERAL: denies fever, chills, night sweats, weight loss, anorexia HEENT: denies headache, sinus congestion, or drainage, dysphagia RESPIRATORY: denies cough, sputum production, shortness of breath, CARDIAC: denies chest pain, palpitations, orthopnea, PND GASTROINTESTINAL: abdominal pain, nausea, denies vomiting, melena, GENITOURINARY: denies dysuria, urgency, frequency, heamaturia EXTREMITY: denies swelling MUSCULOSKELETAL: denies current joint pain or tenderness NEUROLOGIC: denies focal numbness, weakness, tingling HEMATOLOGIC: denies easy bruising and/or hemorrhage INTEGUMENT: denies rashes PSYCHIATRIC: denies suicidal or homicidal ideation Vital Signs Vital Signs Vital Signs: 05/03/22 08:58 05/03/22 09:01 05/03/22 09:01 Temperature 96.9 F L Temperature Source Temporal Pulse Rate 156 H 152 H Respiratory Rate 18 18 Respiratory Effort Normal Blood Pressure 138/87 H 117/97 H Blood Pressure Mean 104 103 Pulse Ox 98 98 Oxygen Delivery Method Room Air Room Air 05/03/22 10:01 05/03/22 11:00 Temperature 97.8 F Temperature Source Temporal Pulse Rate 90 89 Respiratory Rate 18 16 Respiratory Effort Blood Pressure 108/76 98/76 Blood Pressure Mean 86 83 Pulse Ox 99 99 Oxygen Delivery Method Room Air Room Air Weight Weight: 81.2 kg Body Mass Index (BMI) 25.7 Physical Exam Narrative GENERAL: cooperative HEENT: Atraumatic; normocephalic EYES; Anicteric, Normal Conjunctiva NECK; supple, normal thyroid, RESPIRATORY: Diminished to auscultation CARDIOVASCULAR: Regular S1 S2, GI: soft, normoactive bowel sounds, : No Renal angle tenderness; EXTREMITIES: No edema, no clubbing, MUSCULOSKELETAL: no muscle wasting NEURO: Awake; no lateralizing signs. SKIN: No Rash PSYCH; Flat affect Results Lab / Micro Data Result Diagrams: 05/03/22 09:05 05/03/22 09:05 Labs: Laboratory Results - last 24 hr 05/03/22 09:05: WBC 10.3, RBC 5.38, Hgb 16.4, Hct 50.4, MCV 93.7, MCH 30.5, MCHC32.5, RDW Std Deviation 50.5 H, RDW Coeff of Darian 14.6, Plt Count 244, MPV 10.7 05/03/22 09:05: PT 13.5, INR 1.1, APTT 25.9 05/03/22 09:05: Sodium 143, Potassium 3.8, Chloride 106, Carbon Dioxide 27.0, Anion Gap 10, BUN 21 H, Creatinine 1.34 H, Estim Creat Clear Calc 46.15, Est GFR(MDRD) Af Amer 66, Est GFR (MDRD) Non-Af 55 L, BUN/Creatinine Ratio 15.7, Glucose 125 H, Calcium 9.6, Total Bilirubin 1.00, AST 28, ALT 35, Alkaline Phosphatase 50, Troponin I High Sens 13, Total Protein 7.5, Albumin 3.7, Globulin 3.8, Albumin/Globulin Ratio 1.0, Lipase 143 Radiology Impression Chest/Abdomen/Pelvis CTA 05/03/22 09:24 IMPRESSION: No evidence of aneurysmal dilatation of the thoracic or abdominal aorta. Atherosclerotic plaque formation throughout. No evidence of dissection. Moderate sized hiatal hernia. Electronically Signed: Babak Samuels MD at 11:00 EST , Assessment & Plan Assessment/Plan (1) Atrial fibrillation, new onset: PLAN: Plan Patient is a 77-year-old gentleman admitted with abdominal discomfort found to be in A-fib with RVR New onset A-fib ? Patient has been admitted to monitored bed for subsequent evaluation. As partof his management ordered TSH serial cardiac enzymes 2D echo. Patient convertedback to sinus rhythm prior to being admitted. 2D echo will be ordered as part of his evaluation. Patient was also started on systemic anticoagulation Eliquis2.5 mg p.o. twice daily 2. Coronary artery disease ? With previous CABG and recent PCI with LORENZA to severe disease in the ostium of the left main trunk in December 2021 at [facility] 3. Dyslipidemia -Patient is on statin therapy, continued at home dose 4. Hypertension - Blood pressure controlled, home medications continued with dose adjustment as needed 5. Hypothyroidism - Patient is on levothyroxine home dose continued. 6. History of prostate CA ? Currently remission 7. DVT prophylaxis ? Placed on Eliquis Time spent in the patient's overall evaluation,decision-making process, review of diagnostic data, adjustment of management, discussion with other providers, nursing nursing and ancillary staff involved in patient's care documentation, 75minutes Advance planning; did discuss with the patient and family regarding advanced directives as well as CODE STATUS. Did explain the various scenarios involved (FULL CODE, DNR CCA, DNR CCA with no intubation, and DNR CC and what each meant) patient elected to remain full code with CPR and intubation if needed. Order was placed. Time spent on discussion 18 minutes. Charges/Coding Visit Charges Inpatient E&M: 65717 Init Hosp L3 Procedures Hospitalists Procedures: 33539 Advncd Care Plan 30 Min 05/03/22 1216 <Electronically signed by Jose Lemus MD> Cosigner Signature (if applicable): CC: Dr. Jose Lemus MD; Dr. Hilton Jay, DO~ Signed [facility] Work Phone: Hospital Discharge instructions Additional Instructions Follow-up with your [facility] disciplinary hearing officer as planned.[facility] Work Phone: Hospital Discharge instructions Additional Instructions You spontaneously went into atrial fibrillation but then also spontaneously converted to normal sinus rhythm. Please continue all of your medications as directed by your family doctor and disciplinary hearing officer. Please discuss with your disciplinary hearing officer the potential action plan if you develop frequent recurrent A-fib bouts. If you have any further concerns or worsening of symptoms or the A-fib returns and will not resolve after a short while at home please return for repeat evaluationWKettering [facility] Work Phone: Instructions* Name Dates Details Patient Instructions Indication:Non-smoker Start:05-Jun-2020 Instruction Type:Provider Instructions for Treatment How to Access Health Informa tion Online using Patient Portal and [employer] Apps Indication:Non-smoker Start:05-Jun-2020 Instruction Type:Patient Education How to access health informa tion online Indication:BMI 26.0-26.9,adult Start:06-Dec-2019 Instruction Type:Patient Education How to access health informa tion online - Detail Indication:BMI 26.0-26.9,adult Start:06-Dec-2019 Instruction Type:Patient Education Patient Instructions Indication:BMI 26.0-26.9,adult Start:06-Dec-2019 Instruction Type:Provider Instructions for Treatment cardiovascular counseling Indication:Coronary artery disease Start:04-Oct-2019 Instruction Type:Provider Instructions for Treatment How to access health informa tion online Indication:BMI 26.0-26.9,adult Start:04-Oct-2019 Instruction Type:Patient Education How to access health informa tion online - Detail Indication:BMI 26.0-26.9,adult Start:04-Oct-2019 Instruction Type:Patient Education Patient Instructions Indication:BMI 26.0-26.9,adult Start:04-Oct-2019 Instruction Type:Provider Instructions for Treatment How to access health informa tion online - Detail Indication:Non-smoker Start:13-Sep-2019 Instruction Type:Patient Education How to access health informa tion online Indication:Non-smoker Start:13-Sep-2019 Instruction Type:Patient Education Patient Instructions Indication:Non-smoker Start:13-Sep-2019 Instruction Type:Provider Instructions for Treatment How to access health informa tion online Indication:BMI 27.0-27.9,adult Start:03-Mar-2019 Instruction Type:Patient Education How to access health informa tion online - Detail Indication:BMI 27.0-27.9,adult Start:03-Mar-2019 Instruction Type:Patient Education Patient Instructions Indication:BMI 27.0-27.9,adult Start:03-Mar-2019 Instruction Type:Provider Instructions for Treatment How to access health informa tion online Indication:BMI 27.0-27.9,adult Start:15-Feb-2019 Instruction Type:Patient Education How to access health informa tion online - Detail Indication:BMI 27.0-27.9,adult Start:15-Feb-2019 Instruction Type:Patient Education Patient Instructions Indication:BMI 27.0-27.9,adult Start:15-Feb-2019 Instruction Type:Provider Instructions for Treatment How to access health informa tion online Indication:BMI 26.0-26.9,adult Start:20-Jan-2019 Instruction Type:Patient Education Patient Instructions Indication:BMI 26.0-26.9,adult Start:20-Jan-2019 Instruction Type:Provider Instructions for Treatment How to access health informa tion online Indication:Non-smoker Start:15-Oct-2018 Instruction Type:Patient Education How to access health informa tion online - Detail Indication:Non-smoker Start:15-Oct-2018 Instruction Type:Patient Education Patient Instructions Indication:Non-smoker Start:15-Oct-2018 Instruction Type:Provider Instructions for Treatment How to access health informa tion online Indication:Non-smoker Start:29-Apr-2018 Instruction Type:Patient Education How to access health informa tion online - Detail Indication:Non-smoker Start:29-Apr-2018 Instruction Type:Patient Education Patient Instructions Indication:Non-smoker Start:29-Apr-2018 Instruction Type:Provider Instructions for Treatment How to access health informa tion online Indication:Non-smoker Start:23-Apr-2018 Instruction Type:Patient Education How to access health informa tion online - Detail Indication:Non-smoker Start:23-Apr-2018 Instruction Type:Patient Education Patient Instructions Indication:Cough Start:23-Apr-2018 Instruction Type:Provider Instructions for Treatment How to access health informa tion online Indication:Non-smoker Start:05-Jan-2018 Instruction Type:Patient Education How to access health informa tion online - Detail Indication:Non-smoker Start:05-Jan-2018 Instruction Type:Patient Education Patient Instructions Indication:Sore throat Start:05-Jan-2018 Instruction Type:Provider Instructions for Treatment cardiovascular counseling Indication:Coronary artery disease Start:27-Nov-2017 Instruction Type:Provider Instructions for Treatment How to access health informa tion online Indication:Non-smoker Start:27-Nov-2017 Instruction Type:Patient Education How to access health informa tion online - Detail Indication:Non-smoker Start:27-Nov-2017 Instruction Type:Patient Education Patient Instructions Indication:Non-smoker Start:27-Nov-2017 Instruction Type:Provider Instructions for Treatment How to access health informa tion online Indication:BMI 28.0-28.9,adult Start:17-Apr-2017 Instruction Type:Patient Education How to access health informa tion online - Detail Indication:BMI 28.0-28.9,adult Start:17-Apr-2017 Instruction Type:Patient Education Patient Instructions Indication:BMI 28.0-28.9,adult Start:17-Apr-2017 Instruction Type:Provider Instructions for Treatment cardiovascular counseling Indication:Coronary artery disease Start:20-Nov-2016 Instruction Type:Provider Instructions for Treatment How to access health informa tion online Indication:BMI 27.0-27.9,adult Start:20-Nov-2016 Instruction Type:Patient Education How to access health informa tion online - Detail Indication:BMI 27.0-27.9,adult Start:20-Nov-2016 Instruction Type:Patient Education Patient Instructions Indication:BMI 27.0-27.9,adult Start:20-Nov-2016 Instruction Type:Provider Instructions for Treatment Patient Instructions Indication:Encounter for screening for malignant neoplasm of prostate (Renamed from Screening for prostate cancer) Start:14-Oct-2016 Instruction Type:Provider Instructions for Treatment How to access health informa tion online - Detail Indication:Non-smoker Start:08-Aug-2016 Instruction Type:Patient Education Patient Instructions Indication:Non-smoker Start:08-Aug-2016 Instruction Type:Provider Instructions for Treatment Patient Instructions Indication:Annual Medicare Phyiscal WITHOUT abnormal findings (Renamed from Encounter for general adult medical examination without abnormal findings) Start:13-Nov-2015 Instruction Type:Provider Instructions for Treatment Patient Instructions Indication:Bee sting reaction, accidental or unintentional, initial encounter Start:08-Nov-2015 Instruction Type:Provider Instructions for Treatment How to access health informa tion [employer] Indication:Bee sting reaction, accidental or unintentional, initial encounter Start:17-Aug-2015 Instruction Type:Patient Education How to access health informa tion online - Detail Indication:Bee sting reaction, accidental or unintentional, initial encounter Start:17-Aug-2015 Instruction Type:Patient Education Patient Instructions Indication:Bee sting reaction, accidental or unintentional, initial encounter Start:17-Aug-2015 Instruction Type:Provider Instructions for Treatment How to access health informa tion online Indication:Coronary artery disease Start:07-Nov-2014 Instruction Type:Patient Education How to access health informa tion online - Detail Indication:Coronary artery disease Start:07-Nov-2014 Instruction Type:Patient Education Patient Instructions Indication:Coronary artery disease Start:07-Nov-2014 Instruction Type:Provider Instructions for Treatment Patient Instructions Indication:Hypothyroidism Start:11-Aug-2013 Instruction Type:Provider Instructions for Treatment Patient Instructions Indication:Hypothyroidism Start:21-Apr-2013 Instruction Type:Provider Instructions for Treatment Patient Instructions Indication:Hypercholesterolemia Start:02-Sep-2012 Instruction Type:Provider Instructions for Treatment Patient Instructions Indication:Hypothyroidism Start:02-Jun-2012 Instruction Type:Provider Instructions for Treatment [facility]; [facility] Work Phone: Instructions* Name Dates Details cardiovascular counseling Indication:Coronary artery disease Start:06-Dec-2020 Instruction Type:Provider Instructions for Treatment Patient Instructions Indication:BMI 26.0-26.9,adult Start:06-Dec-2020 Instruction Type:Provider Instructions for Treatment How to Access Health Informa tion Online using Patient Portal and [employer] Indication:BMI 26.0-26.9,adult Start:06-Dec-2020 Instruction Type:Patient Education Patient Instructions Indication:Non-smoker Start:05-Jun-2020 Instruction Type:Provider Instructions for Treatment How to Access Health Informa tion Online using Patient Portal and [employer] Indication:Non-smoker Start:05-Jun-2020 Instruction Type:Patient Education How to access health informa tion online Indication:BMI 26.0-26.9,adult Start:06-Dec-2019 Instruction Type:Patient Education How to access health informa tion online - Detail Indication:BMI 26.0-26.9,adult Start:06-Dec-2019 Instruction Type:Patient Education Patient Instructions Indication:BMI 26.0-26.9,adult Start:06-Dec-2019 Instruction Type:Provider Instructions for Treatment cardiovascular counseling Indication:Coronary artery disease Start:04-Oct-2019 Instruction Type:Provider Instructions for Treatment How to access health informa tion online Indication:BMI 26.0-26.9,adult Start:04-Oct-2019 Instruction Type:Patient Education How to access health informa tion online - Detail Indication:BMI 26.0-26.9,adult Start:04-Oct-2019 Instruction Type:Patient Education Patient Instructions Indication:BMI 26.0-26.9,adult Start:04-Oct-2019 Instruction Type:Provider Instructions for Treatment How to access health informa tion online - Detail Indication:Non-smoker Start:13-Sep-2019 Instruction Type:Patient Education How to access health informa tion online Indication:Non-smoker Start:13-Sep-2019 Instruction Type:Patient Education Patient Instructions Indication:Non-smoker Start:13-Sep-2019 Instruction Type:Provider Instructions for Treatment How to access health informa tion online Indication:BMI 27.0-27.9,adult Start:03-Mar-2019 Instruction Type:Patient Education How to access health informa tion online - Detail Indication:BMI 27.0-27.9,adult Start:03-Mar-2019 Instruction Type:Patient Education Patient Instructions Indication:BMI 27.0-27.9,adult Start:03-Mar-2019 Instruction Type:Provider Instructions for Treatment How to access health informa tion online Indication:BMI 27.0-27.9,adult Start:15-Feb-2019 Instruction Type:Patient Education How to access health informa tion online - Detail Indication:BMI 27.0-27.9,adult Start:15-Feb-2019 Instruction Type:Patient Education Patient Instructions Indication:BMI 27.0-27.9,adult Start:15-Feb-2019 Instruction Type:Provider Instructions for Treatment How to access health informa tion online Indication:BMI 26.0-26.9,adult Start:20-Jan-2019 Instruction Type:Patient Education Patient Instructions Indication:BMI 26.0-26.9,adult Start:20-Jan-2019 Instruction Type:Provider Instructions for Treatment How to access health informa tion online Indication:Non-smoker Start:15-Oct-2018 Instruction Type:Patient Education How to access health informa tion online - Detail Indication:Non-smoker Start:15-Oct-2018 Instruction Type:Patient Education Patient Instructions Indication:Non-smoker Start:15-Oct-2018 Instruction Type:Provider Instructions for Treatment How to access health informa tion online Indication:Non-smoker Start:29-Apr-2018 Instruction Type:Patient Education How to access health informa tion online - Detail Indication:Non-smoker Start:29-Apr-2018 Instruction Type:Patient Education Patient Instructions Indication:Non-smoker Start:29-Apr-2018 Instruction Type:Provider Instructions for Treatment How to access health informa tion online Indication:Non-smoker Start:23-Apr-2018 Instruction Type:Patient Education How to access health informa tion online - Detail Indication:Non-smoker Start:23-Apr-2018 Instruction Type:Patient Education Patient Instructions Indication:Cough Start:23-Apr-2018 Instruction Type:Provider Instructions for Treatment How to access health informa tion online Indication:Non-smoker Start:05-Jan-2018 Instruction Type:Patient Education How to access health informa tion online - Detail Indication:Non-smoker Start:05-Jan-2018 Instruction Type:Patient Education Patient Instructions Indication:Sore throat Start:05-Jan-2018 Instruction Type:Provider Instructions for Treatment cardiovascular counseling Indication:Coronary artery disease Start:27-Nov-2017 Instruction Type:Provider Instructions for Treatment How to access health informa tion online Indication:Non-smoker Start:27-Nov-2017 Instruction Type:Patient Education How to access health informa tion online - Detail Indication:Non-smoker Start:27-Nov-2017 Instruction Type:Patient Education Patient Instructions Indication:Non-smoker Start:27-Nov-2017 Instruction Type:Provider Instructions for Treatment How to access health informa tion online Indication:BMI 28.0-28.9,adult Start:17-Apr-2017 Instruction Type:Patient Education How to access health informa tion online - Detail Indication:BMI 28.0-28.9,adult Start:17-Apr-2017 Instruction Type:Patient Education Patient Instructions Indication:BMI 28.0-28.9,adult Start:17-Apr-2017 Instruction Type:Provider Instructions for Treatment cardiovascular counseling Indication:Coronary artery disease Start:20-Nov-2016 Instruction Type:Provider Instructions for Treatment How to access health informa tion online Indication:BMI 27.0-27.9,adult Start:20-Nov-2016 Instruction Type:Patient Education How to access health informa tion online - Detail Indication:BMI 27.0-27.9,adult Start:20-Nov-2016 Instruction Type:Patient Education Patient Instructions Indication:BMI 27.0-27.9,adult Start:20-Nov-2016 Instruction Type:Provider Instructions for Treatment Patient Instructions Indication:Encounter for screening for malignant neoplasm of prostate (Renamed from Screening for prostate cancer) Start:14-Oct-2016 Instruction Type:Provider Instructions for Treatment How to access health informa tion online - Detail Indication:Non-smoker Start:08-Aug-2016 Instruction Type:Patient Education Patient Instructions Indication:Non-smoker Start:08-Aug-2016 Instruction Type:Provider Instructions for Treatment Patient Instructions Indication:Annual Medicare Phyiscal WITHOUT abnormal findings (Renamed from Encounter for general adult medical examination without abnormal findings) Start:13-Nov-2015 Instruction Type:Provider Instructions for Treatment Patient Instructions Indication:Bee sting reaction, accidental or unintentional, initial encounter Start:08-Nov-2015 Instruction Type:Provider Instructions for Treatment How to access health informa tion online Indication:Bee sting reaction, accidental or unintentional, initial encounter Start:17-Aug-2015 Instruction Type:Patient Education How to access health informa tion online - Detail Indication:Bee sting reaction, accidental or unintentional, initial encounter Start:17-Aug-2015 Instruction Type:Patient Education Patient Instructions Indication:Bee sting reaction, accidental or unintentional, initial encounter Start:17-Aug-2015 Instruction Type:Provider Instructions for Treatment How to access health informa tion online Indication:Coronary artery disease Start:07-Nov-2014 Instruction Type:Patient Education How to access health informa tion online - Detail Indication:Coronary artery disease Start:07-Nov-2014 Instruction Type:Patient Education Patient Instructions Indication:Coronary artery disease Start:07-Nov-2014 Instruction Type:Provider Instructions for Treatment Patient Instructions Indication:Hypothyroidism Start:11-Aug-2013 Instruction Type:Provider Instructions for Treatment Patient Instructions Indication:Hypothyroidism Start:21-Apr-2013 Instruction Type:Provider Instructions for Treatment Patient Instructions Indication:Hypercholesterolemia Start:02-Sep-2012 Instruction Type:Provider Instructions for Treatment Patient Instructions Indication:Hypothyroidism Start:02-Jun-2012 Instruction Type:Provider Instructions for Treatment [facility]; [facility] Work Phone: Instructions* Name Dates Details cardiovascular counseling Indication:Coronary artery disease Start:06-Dec-2020 Instruction Type:Provider Instructions for Treatment Patient Instructions Indication:BMI 26.0-26.9,adult Start:06-Dec-2020 Instruction Type:Provider Instructions for Treatment How to Access Health Informa tion Online using Patient Portal and [employer] Indication:BMI 26.0-26.9,adult Start:06-Dec-2020 Instruction Type:Patient Education Patient Instructions Indication:Non-smoker Start:05-Jun-2020 Instruction Type:Provider Instructions for Treatment How to Access Health Informa tion Online using Patient Portal and [employer] Indication:Non-smoker Start:05-Jun-2020 Instruction Type:Patient Education How to access health informa tion online Indication:BMI 26.0-26.9,adult Start:06-Dec-2019 Instruction Type:Patient Education How to access health informa tion online - Detail Indication:BMI 26.0-26.9,adult Start:06-Dec-2019 Instruction Type:Patient Education Patient Instructions Indication:BMI 26.0-26.9,adult Start:06-Dec-2019 Instruction Type:Provider Instructions for Treatment cardiovascular counseling Indication:Coronary artery disease Start:04-Oct-2019 Instruction Type:Provider Instructions for Treatment How to access health informa tion online Indication:BMI 26.0-26.9,adult Start:04-Oct-2019 Instruction Type:Patient Education How to access health informa tion online - Detail Indication:BMI 26.0-26.9,adult Start:04-Oct-2019 Instruction Type:Patient Education Patient Instructions Indication:BMI 26.0-26.9,adult Start:04-Oct-2019 Instruction Type:Provider Instructions for Treatment How to access health informa tion online - Detail Indication:Non-smoker Start:13-Sep-2019 Instruction Type:Patient Education How to access health informa tion online Indication:Non-smoker Start:13-Sep-2019 Instruction Type:Patient Education Patient Instructions Indication:Non-smoker Start:13-Sep-2019 Instruction Type:Provider Instructions for Treatment How to access health informa tion online Indication:BMI 27.0-27.9,adult Start:03-Mar-2019 Instruction Type:Patient Education How to access health informa tion online - Detail Indication:BMI 27.0-27.9,adult Start:03-Mar-2019 Instruction Type:Patient Education Patient Instructions Indication:BMI 27.0-27.9,adult Start:03-Mar-2019 Instruction Type:Provider Instructions for Treatment How to access health informa tion online Indication:BMI 27.0-27.9,adult Start:15-Feb-2019 Instruction Type:Patient Education How to access health informa tion online - Detail Indication:BMI 27.0-27.9,adult Start:15-Feb-2019 Instruction Type:Patient Education Patient Instructions Indication:BMI 27.0-27.9,adult Start:15-Feb-2019 Instruction Type:Provider Instructions for Treatment How to access health informa tion online Indication:BMI 26.0-26.9,adult Start:20-Jan-2019 Instruction Type:Patient Education Patient Instructions Indication:BMI 26.0-26.9,adult Start:20-Jan-2019 Instruction Type:Provider Instructions for Treatment How to access health informa tion online Indication:Non-smoker Start:15-Oct-2018 Instruction Type:Patient Education How to access health informa tion online - Detail Indication:Non-smoker Start:15-Oct-2018 Instruction Type:Patient Education Patient Instructions Indication:Non-smoker Start:15-Oct-2018 Instruction Type:Provider Instructions for Treatment How to access health informa tion online Indication:Non-smoker Start:29-Apr-2018 Instruction Type:Patient Education How to access health informa tion online - Detail Indication:Non-smoker Start:29-Apr-2018 Instruction Type:Patient Education Patient Instructions Indication:Non-smoker Start:29-Apr-2018 Instruction Type:Provider Instructions for Treatment How to access health informa tion online Indication:Non-smoker Start:23-Apr-2018 Instruction Type:Patient Education How to access health informa tion online - Detail Indication:Non-smoker Start:23-Apr-2018 Instruction Type:Patient Education Patient Instructions Indication:Cough Start:23-Apr-2018 Instruction Type:Provider Instructions for Treatment How to access health informa tion online Indication:Non-smoker Start:05-Jan-2018 Instruction Type:Patient Education How to access health informa tion online - Detail Indication:Non-smoker Start:05-Jan-2018 Instruction Type:Patient Education Patient Instructions Indication:Sore throat Start:05-Jan-2018 Instruction Type:Provider Instructions for Treatment cardiovascular counseling Indication:Coronary artery disease Start:27-Nov-2017 Instruction Type:Provider Instructions for Treatment How to access health informa tion online Indication:Non-smoker Start:27-Nov-2017 Instruction Type:Patient Education How to access health informa tion online - Detail Indication:Non-smoker Start:27-Nov-2017 Instruction Type:Patient Education Patient Instructions Indication:Non-smoker Start:27-Nov-2017 Instruction Type:Provider Instructions for Treatment How to access health informa tion online Indication:BMI 28.0-28.9,adult Start:17-Apr-2017 Instruction Type:Patient Education How to access health informa tion online - Detail Indication:BMI 28.0-28.9,adult Start:17-Apr-2017 Instruction Type:Patient Education Patient Instructions Indication:BMI 28.0-28.9,adult Start:17-Apr-2017 Instruction Type:Provider Instructions for Treatment cardiovascular counseling Indication:Coronary artery disease Start:20-Nov-2016 Instruction Type:Provider Instructions for Treatment How to access health informa tion online Indication:BMI 27.0-27.9,adult Start:20-Nov-2016 Instruction Type:Patient Education How to access health informa tion online - Detail Indication:BMI 27.0-27.9,adult Start:20-Nov-2016 Instruction Type:Patient Education Patient Instructions Indication:BMI 27.0-27.9,adult Start:20-Nov-2016 Instruction Type:Provider Instructions for Treatment Patient Instructions Indication:Encounter for screening for malignant neoplasm of prostate (Renamed from Screening for prostate cancer) Start:14-Oct-2016 Instruction Type:Provider Instructions for Treatment How to access health informa tion online - Detail Indication:Non-smoker Start:08-Aug-2016 Instruction Type:Patient Education Patient Instructions Indication:Non-smoker Start:08-Aug-2016 Instruction Type:Provider Instructions for Treatment Patient Instructions Indication:Annual Medicare Phyiscal WITHOUT abnormal findings (Renamed from Encounter for general adult medical examination without abnormal findings) Start:13-Nov-2015 Instruction Type:Provider Instructions for Treatment Patient Instructions Indication:Bee sting reaction, accidental or unintentional, initial encounter Start:08-Nov-2015 Instruction Type:Provider Instructions for Treatment How to access health informa tion online Indication:Bee sting reaction, accidental or unintentional, initial encounter Start:17-Aug-2015 Instruction Type:Patient Education How to access health informa tion online - Detail Indication:Bee sting reaction, accidental or unintentional, initial encounter Start:17-Aug-2015 Instruction Type:Patient Education Patient Instructions Indication:Bee sting reaction, accidental or unintentional, initial encounter Start:17-Aug-2015 Instruction Type:Provider Instructions for Treatment How to access health informa tion online Indication:Coronary artery disease Start:07-Nov-2014 Instruction Type:Patient Education How to access health informa tion online - Detail Indication:Coronary artery disease Start:07-Nov-2014 Instruction Type:Patient Education Patient Instructions Indication:Coronary artery disease Start:07-Nov-2014 Instruction Type:Provider Instructions for Treatment Patient Instructions Indication:Hypothyroidism Start:11-Aug-2013 Instruction Type:Provider Instructions for Treatment Patient Instructions Indication:Hypothyroidism Start:21-Apr-2013 Instruction Type:Provider Instructions for Treatment Patient Instructions Indication:Hypercholesterolemia Start:02-Sep-2012 Instruction Type:Provider Instructions for Treatment Patient Instructions Indication:Hypothyroidism Start:02-Jun-2012 Instruction Type:Provider Instructions for Treatment [facility]; [facility] Work Phone: Instructions* Name Dates Details Patient Instructions Indication:Hyperglycemia Start:07-Jun-2021 Instruction Type:Provider Instructions for Treatment How to Access [employer] using Patient Portal and [employer] Indication:Hyperglycemia Start:07-Jun-2021 Instruction Type:Patient Education cardiovascular counseling Indication:Coronary artery disease Start:06-Dec-2020 Instruction Type:Provider Instructions for Treatment Patient Instructions Indication:BMI 26.0-26.9,adult Start:06-Dec-2020 Instruction Type:Provider Instructions for Treatment How to Access Health Informa tion Online using Patient Portal and [employer] Indication:BMI 26.0-26.9,adult Start:06-Dec-2020 Instruction Type:Patient Education Patient Instructions Indication:Non-smoker Start:05-Jun-2020 Instruction Type:Provider Instructions for Treatment How to Access Health Informa tion Online using Patient Portal and [employer] Indication:Non-smoker Start:05-Jun-2020 Instruction Type:Patient Education How to access health informa tion online Indication:BMI 26.0-26.9,adult Start:06-Dec-2019 Instruction Type:Patient Education How to access health informa tion online - Detail Indication:BMI 26.0-26.9,adult Start:06-Dec-2019 Instruction Type:Patient Education Patient Instructions Indication:BMI 26.0-26.9,adult Start:06-Dec-2019 Instruction Type:Provider Instructions for Treatment cardiovascular counseling Indication:Coronary artery disease Start:04-Oct-2019 Instruction Type:Provider Instructions for Treatment How to access health informa tion online Indication:BMI 26.0-26.9,adult Start:04-Oct-2019 Instruction Type:Patient Education How to access health informa tion online - Detail Indication:BMI 26.0-26.9,adult Start:04-Oct-2019 Instruction Type:Patient Education Patient Instructions Indication:BMI 26.0-26.9,adult Start:04-Oct-2019 Instruction Type:Provider Instructions for Treatment How to access health informa tion online - Detail Indication:Non-smoker Start:13-Sep-2019 Instruction Type:Patient Education How to access health informa tion online Indication:Non-smoker Start:13-Sep-2019 Instruction Type:Patient Education Patient Instructions Indication:Non-smoker Start:13-Sep-2019 Instruction Type:Provider Instructions for Treatment How to access health informa tion online Indication:BMI 27.0-27.9,adult Start:03-Mar-2019 Instruction Type:Patient Education How to access health informa tion online - Detail Indication:BMI 27.0-27.9,adult Start:03-Mar-2019 Instruction Type:Patient Education Patient Instructions Indication:BMI 27.0-27.9,adult Start:03-Mar-2019 Instruction Type:Provider Instructions for Treatment How to access health informa tion online Indication:BMI 27.0-27.9,adult Start:15-Feb-2019 Instruction Type:Patient Education How to access health informa tion online - Detail Indication:BMI 27.0-27.9,adult Start:15-Feb-2019 Instruction Type:Patient Education Patient Instructions Indication:BMI 27.0-27.9,adult Start:15-Feb-2019 Instruction Type:Provider Instructions for Treatment How to access health informa tion online Indication:BMI 26.0-26.9,adult Start:20-Jan-2019 Instruction Type:Patient Education Patient Instructions Indication:BMI 26.0-26.9,adult Start:20-Jan-2019 Instruction Type:Provider Instructions for Treatment How to access health informa tion online Indication:Non-smoker Start:15-Oct-2018 Instruction Type:Patient Education How to access health informa tion online - Detail Indication:Non-smoker Start:15-Oct-2018 Instruction Type:Patient Education Patient Instructions Indication:Non-smoker Start:15-Oct-2018 Instruction Type:Provider Instructions for Treatment How to access health informa tion online Indication:Non-smoker Start:29-Apr-2018 Instruction Type:Patient Education How to access health informa tion online - Detail Indication:Non-smoker Start:29-Apr-2018 Instruction Type:Patient Education Patient Instructions Indication:Non-smoker Start:29-Apr-2018 Instruction Type:Provider Instructions for Treatment How to access health informa tion online Indication:Non-smoker Start:23-Apr-2018 Instruction Type:Patient Education How to access health informa tion online - Detail Indication:Non-smoker Start:23-Apr-2018 Instruction Type:Patient Education Patient Instructions Indication:Cough Start:23-Apr-2018 Instruction Type:Provider Instructions for Treatment How to access health informa tion online Indication:Non-smoker Start:05-Jan-2018 Instruction Type:Patient Education How to access health informa tion online - Detail Indication:Non-smoker Start:05-Jan-2018 Instruction Type:Patient Education Patient Instructions Indication:Sore throat Start:05-Jan-2018 Instruction Type:Provider Instructions for Treatment cardiovascular counseling Indication:Coronary artery disease Start:27-Nov-2017 Instruction Type:Provider Instructions for Treatment How to access health informa tion online Indication:Non-smoker Start:27-Nov-2017 Instruction Type:Patient Education How to access health informa tion online - Detail Indication:Non-smoker Start:27-Nov-2017 Instruction Type:Patient Education Patient Instructions Indication:Non-smoker Start:27-Nov-2017 Instruction Type:Provider Instructions for Treatment How to access health informa tion online Indication:BMI 28.0-28.9,adult Start:17-Apr-2017 Instruction Type:Patient Education How to access health informa tion online - Detail Indication:BMI 28.0-28.9,adult Start:17-Apr-2017 Instruction Type:Patient Education Patient Instructions Indication:BMI 28.0-28.9,adult Start:17-Apr-2017 Instruction Type:Provider Instructions for Treatment cardiovascular counseling Indication:Coronary artery disease Start:20-Nov-2016 Instruction Type:Provider Instructions for Treatment How to access health informa tion online Indication:BMI 27.0-27.9,adult Start:20-Nov-2016 Instruction Type:Patient Education How to access health informa tion online - Detail Indication:BMI 27.0-27.9,adult Start:20-Nov-2016 Instruction Type:Patient Education Patient Instructions Indication:BMI 27.0-27.9,adult Start:20-Nov-2016 Instruction Type:Provider Instructions for Treatment Patient Instructions Indication:Encounter for screening for malignant neoplasm of prostate (Renamed from Screening for prostate cancer) Start:14-Oct-2016 Instruction Type:Provider Instructions for Treatment How to access health informa tion online - Detail Indication:Non-smoker Start:08-Aug-2016 Instruction Type:Patient Education Patient Instructions Indication:Non-smoker Start:08-Aug-2016 Instruction Type:Provider Instructions for Treatment Patient Instructions Indication:Annual Medicare Phyiscal WITHOUT abnormal findings (Renamed from Encounter for general adult medical examination without abnormal findings) Start:13-Nov-2015 Instruction Type:Provider Instructions for Treatment Patient Instructions Indication:Bee sting reaction, accidental or unintentional, initial encounter Start:08-Nov-2015 Instruction Type:Provider Instructions for Treatment How to access health informa tion online Indication:Bee sting reaction, accidental or unintentional, initial encounter Start:17-Aug-2015 Instruction Type:Patient Education How to access health informa tion online - Detail Indication:Bee sting reaction, accidental or unintentional, initial encounter Start:17-Aug-2015 Instruction Type:Patient Education Patient Instructions Indication:Bee sting reaction, accidental or unintentional, initial encounter Start:17-Aug-2015 Instruction Type:Provider Instructions for Treatment How to access health informa tion online Indication:Coronary artery disease Start:07-Nov-2014 Instruction Type:Patient Education How to access health informa tion online - Detail Indication:Coronary artery disease Start:07-Nov-2014 Instruction Type:Patient Education Patient Instructions Indication:Coronary artery disease Start:07-Nov-2014 Instruction Type:Provider Instructions for Treatment Patient Instructions Indication:Hypothyroidism Start:11-Aug-2013 Instruction Type:Provider Instructions for Treatment Patient Instructions Indication:Hypothyroidism Start:21-Apr-2013 Instruction Type:Provider Instructions for Treatment Patient Instructions Indication:Hypercholesterolemia Start:02-Sep-2012 Instruction Type:Provider Instructions for Treatment Patient Instructions Indication:Hypothyroidism Start:02-Jun-2012 Instruction Type:Provider Instructions for Treatment [facility]; [facility] Work Phone: Instructions* Name Dates Details Patient Instructions Indication:Hyperglycemia Start:07-Jun-2021 Instruction Type:Provider Instructions for Treatment How to Access Health Informa tion Online using Patient Portal and [employer] Indication:Hyperglycemia Start:07-Jun-2021 Instruction Type:Patient Education cardiovascular counseling Indication:Coronary artery disease Start:06-Dec-2020 Instruction Type:Provider Instructions for Treatment Patient Instructions Indication:BMI 26.0-26.9,adult Start:06-Dec-2020 Instruction Type:Provider Instructions for Treatment How to Access Health Informa tion Online using Patient Portal and [employer] Indication:BMI 26.0-26.9,adult Start:06-Dec-2020 Instruction Type:Patient Education Patient Instructions Indication:Non-smoker Start:05-Jun-2020 Instruction Type:Provider Instructions for Treatment How to Access Health Informa tion Online using Patient Portal and [employer] Indication:Non-smoker Start:05-Jun-2020 Instruction Type:Patient Education How to access health informa tion online Indication:BMI 26.0-26.9,adult Start:06-Dec-2019 Instruction Type:Patient Education How to access health informa tion online - Detail Indication:BMI 26.0-26.9,adult Start:06-Dec-2019 Instruction Type:Patient Education Patient Instructions Indication:BMI 26.0-26.9,adult Start:06-Dec-2019 Instruction Type:Provider Instructions for Treatment cardiovascular counseling Indication:Coronary artery disease Start:04-Oct-2019 Instruction Type:Provider Instructions for Treatment How to access health informa tion online Indication:BMI 26.0-26.9,adult Start:04-Oct-2019 Instruction Type:Patient Education How to access health informa tion online - Detail Indication:BMI 26.0-26.9,adult Start:04-Oct-2019 Instruction Type:Patient Education Patient Instructions Indication:BMI 26.0-26.9,adult Start:04-Oct-2019 Instruction Type:Provider Instructions for Treatment How to access health informa tion online - Detail Indication:Non-smoker Start:13-Sep-2019 Instruction Type:Patient Education How to access health informa tion online Indication:Non-smoker Start:13-Sep-2019 Instruction Type:Patient Education Patient Instructions Indication:Non-smoker Start:13-Sep-2019 Instruction Type:Provider Instructions for Treatment How to access health informa tion online Indication:BMI 27.0-27.9,adult Start:03-Mar-2019 Instruction Type:Patient Education How to access health informa tion online - Detail Indication:BMI 27.0-27.9,adult Start:03-Mar-2019 Instruction Type:Patient Education Patient Instructions Indication:BMI 27.0-27.9,adult Start:03-Mar-2019 Instruction Type:Provider Instructions for Treatment How to access health informa tion online Indication:BMI 27.0-27.9,adult Start:15-Feb-2019 Instruction Type:Patient Education How to access health informa tion online - Detail Indication:BMI 27.0-27.9,adult Start:15-Feb-2019 Instruction Type:Patient Education Patient Instructions Indication:BMI 27.0-27.9,adult Start:15-Feb-2019 Instruction Type:Provider Instructions for Treatment How to access health informa tion online Indication:BMI 26.0-26.9,adult Start:20-Jan-2019 Instruction Type:Patient Education Patient Instructions Indication:BMI 26.0-26.9,adult Start:20-Jan-2019 Instruction Type:Provider Instructions for Treatment How to access health informa tion online Indication:Non-smoker Start:15-Oct-2018 Instruction Type:Patient Education How to access health informa tion online - Detail Indication:Non-smoker Start:15-Oct-2018 Instruction Type:Patient Education Patient Instructions Indication:Non-smoker Start:15-Oct-2018 Instruction Type:Provider Instructions for Treatment How to access health informa tion online Indication:Non-smoker Start:29-Apr-2018 Instruction Type:Patient Education How to access health informa tion online - Detail Indication:Non-smoker Start:29-Apr-2018 Instruction Type:Patient Education Patient Instructions Indication:Non-smoker Start:29-Apr-2018 Instruction Type:Provider Instructions for Treatment How to access health informa tion online Indication:Non-smoker Start:23-Apr-2018 Instruction Type:Patient Education How to access health informa tion online - Detail Indication:Non-smoker Start:23-Apr-2018 Instruction Type:Patient Education Patient Instructions Indication:Cough Start:23-Apr-2018 Instruction Type:Provider Instructions for Treatment How to access health informa tion online Indication:Non-smoker Start:05-Jan-2018 Instruction Type:Patient Education How to access health informa tion online - Detail Indication:Non-smoker Start:05-Jan-2018 Instruction Type:Patient Education Patient Instructions Indication:Sore throat Start:05-Jan-2018 Instruction Type:Provider Instructions for Treatment cardiovascular counseling Indication:Coronary artery disease Start:27-Nov-2017 Instruction Type:Provider Instructions for Treatment How to access health informa tion online Indication:Non-smoker Start:27-Nov-2017 Instruction Type:Patient Education How to access health informa tion online - Detail Indication:Non-smoker Start:27-Nov-2017 Instruction Type:Patient Education Patient Instructions Indication:Non-smoker Start:27-Nov-2017 Instruction Type:Provider Instructions for Treatment How to access health informa tion online Indication:BMI 28.0-28.9,adult Start:17-Apr-2017 Instruction Type:Patient Education How to access health informa tion online - Detail Indication:BMI 28.0-28.9,adult Start:17-Apr-2017 Instruction Type:Patient Education Patient Instructions Indication:BMI 28.0-28.9,adult Start:17-Apr-2017 Instruction Type:Provider Instructions for Treatment cardiovascular counseling Indication:Coronary artery disease Start:20-Nov-2016 Instruction Type:Provider Instructions for Treatment How to access health informa tion online Indication:BMI 27.0-27.9,adult Start:20-Nov-2016 Instruction Type:Patient Education How to access health informa tion online - Detail Indication:BMI 27.0-27.9,adult Start:20-Nov-2016 Instruction Type:Patient Education Patient Instructions Indication:BMI 27.0-27.9,adult Start:20-Nov-2016 Instruction Type:Provider Instructions for Treatment Patient Instructions Indication:Encounter for screening for malignant neoplasm of prostate (Renamed from Screening for prostate cancer) Start:14-Oct-2016 Instruction Type:Provider Instructions for Treatment How to access health informa tion online - Detail Indication:Non-smoker Start:08-Aug-2016 Instruction Type:Patient Education Patient Instructions Indication:Non-smoker Start:08-Aug-2016 Instruction Type:Provider Instructions for Treatment Patient Instructions Indication:Annual Medicare Phyiscal WITHOUT abnormal findings (Renamed from Encounter for general adult medical examination without abnormal findings) Start:13-Nov-2015 Instruction Type:Provider Instructions for Treatment Patient Instructions Indication:Bee sting reaction, accidental or unintentional, initial encounter Start:08-Nov-2015 Instruction Type:Provider Instructions for Treatment How to access health informa tion online Indication:Bee sting reaction, accidental or unintentional, initial encounter Start:17-Aug-2015 Instruction Type:Patient Education How to access health informa tion online - Detail Indication:Bee sting reaction, accidental or unintentional, initial encounter Start:17-Aug-2015 Instruction Type:Patient Education Patient Instructions Indication:Bee sting reaction, accidental or unintentional, initial encounter Start:17-Aug-2015 Instruction Type:Provider Instructions for Treatment How to access health informa [employer] online Indication:Coronary artery disease Start:07-Nov-2014 Instruction Type:Patient Education How to access health informa tion online - Detail Indication:Coronary artery disease Start:07-Nov-2014 Instruction Type:Patient Education Patient Instructions Indication:Coronary artery disease Start:07-Nov-2014 Instruction Type:Provider Instructions for Treatment Patient Instructions Indication:Hypothyroidism Start:11-Aug-2013 Instruction Type:Provider Instructions for Treatment Patient Instructions Indication:Hypothyroidism Start:21-Apr-2013 Instruction Type:Provider Instructions for Treatment Patient Instructions Indication:Hypercholesterolemia Start:02-Sep-2012 Instruction Type:Provider Instructions for Treatment Patient Instructions Indication:Hypothyroidism Start:02-Jun-2012 Instruction Type:Provider Instructions for Treatment [facility]; [facility] Work Phone: Instructions* Name Dates Details Patient Instructions Indication:Hyperglycemia Start:07-Jun-2021 Instruction Type:Provider Instructions for Treatment How to Access Health Informa tion Online using Patient Portal and [employer] Indication:Hyperglycemia Start:07-Jun-2021 Instruction Type:Patient Education cardiovascular counseling Indication:Coronary artery disease Start:06-Dec-2020 Instruction Type:Provider Instructions for Treatment Patient Instructions Indication:BMI 26.0-26.9,adult Start:06-Dec-2020 Instruction Type:Provider Instructions for Treatment How to Access Health Informa tion Online using Patient Portal and [employer] Indication:BMI 26.0-26.9,adult Start:06-Dec-2020 Instruction Type:Patient Education Patient Instructions Indication:Non-smoker Start:05-Jun-2020 Instruction Type:Provider Instructions for Treatment How to Access Health Informa tion Online using Patient Portal and [employer] Indication:Non-smoker Start:05-Jun-2020 Instruction Type:Patient Education How to access health informa tion online Indication:BMI 26.0-26.9,adult Start:06-Dec-2019 Instruction Type:Patient Education How to access health informa tion online - Detail Indication:BMI 26.0-26.9,adult Start:06-Dec-2019 Instruction Type:Patient Education Patient Instructions Indication:BMI 26.0-26.9,adult Start:06-Dec-2019 Instruction Type:Provider Instructions for Treatment cardiovascular counseling Indication:Coronary artery disease Start:04-Oct-2019 Instruction Type:Provider Instructions for Treatment How to access health informa tion online Indication:BMI 26.0-26.9,adult Start:04-Oct-2019 Instruction Type:Patient Education How to access health informa tion online - Detail Indication:BMI 26.0-26.9,adult Start:04-Oct-2019 Instruction Type:Patient Education Patient Instructions Indication:BMI 26.0-26.9,adult Start:04-Oct-2019 Instruction Type:Provider Instructions for Treatment How to access health informa tion online - Detail Indication:Non-smoker Start:13-Sep-2019 Instruction Type:Patient Education How to access health informa tion online Indication:Non-smoker Start:13-Sep-2019 Instruction Type:Patient Education Patient Instructions Indication:Non-smoker Start:13-Sep-2019 Instruction Type:Provider Instructions for Treatment How to access health informa tion online Indication:BMI 27.0-27.9,adult Start:03-Mar-2019 Instruction Type:Patient Education How to access health informa tion online - Detail Indication:BMI 27.0-27.9,adult Start:03-Mar-2019 Instruction Type:Patient Education Patient Instructions Indication:BMI 27.0-27.9,adult Start:03-Mar-2019 Instruction Type:Provider Instructions for Treatment How to access health informa tion online Indication:BMI 27.0-27.9,adult Start:15-Feb-2019 Instruction Type:Patient Education How to access health informa tion online - Detail Indication:BMI 27.0-27.9,adult Start:15-Feb-2019 Instruction Type:Patient Education Patient Instructions Indication:BMI 27.0-27.9,adult Start:15-Feb-2019 Instruction Type:Provider Instructions for Treatment How to access health informa tion online Indication:BMI 26.0-26.9,adult Start:20-Jan-2019 Instruction Type:Patient Education Patient Instructions Indication:BMI 26.0-26.9,adult Start:20-Jan-2019 Instruction Type:Provider Instructions for Treatment How to access health informa tion online Indication:Non-smoker Start:15-Oct-2018 Instruction Type:Patient Education How to access health informa tion online - Detail Indication:Non-smoker Start:15-Oct-2018 Instruction Type:Patient Education Patient Instructions Indication:Non-smoker Start:15-Oct-2018 Instruction Type:Provider Instructions for Treatment How to access health informa tion online Indication:Non-smoker Start:29-Apr-2018 Instruction Type:Patient Education How to access health informa tion online - Detail Indication:Non-smoker Start:29-Apr-2018 Instruction Type:Patient Education Patient Instructions Indication:Non-smoker Start:29-Apr-2018 Instruction Type:Provider Instructions for Treatment How to access health informa tion online Indication:Non-smoker Start:23-Apr-2018 Instruction Type:Patient Education How to access health informa tion online - Detail Indication:Non-smoker Start:23-Apr-2018 Instruction Type:Patient Education Patient Instructions Indication:Cough Start:23-Apr-2018 Instruction Type:Provider Instructions for Treatment How to access health informa tion online Indication:Non-smoker Start:05-Jan-2018 Instruction Type:Patient Education How to access health informa tion online - Detail Indication:Non-smoker Start:05-Jan-2018 Instruction Type:Patient Education Patient Instructions Indication:Sore throat Start:05-Jan-2018 Instruction Type:Provider Instructions for Treatment cardiovascular counseling Indication:Coronary artery disease Start:27-Nov-2017 Instruction Type:Provider Instructions for Treatment How to access health informa tion online Indication:Non-smoker Start:27-Nov-2017 Instruction Type:Patient Education How to access health informa tion online - Detail Indication:Non-smoker Start:27-Nov-2017 Instruction Type:Patient Education Patient Instructions Indication:Non-smoker Start:27-Nov-2017 Instruction Type:Provider Instructions for Treatment How to access health informa tion online Indication:BMI 28.0-28.9,adult Start:17-Apr-2017 Instruction Type:Patient Education How to access health informa tion online - Detail Indication:BMI 28.0-28.9,adult Start:17-Apr-2017 Instruction Type:Patient Education Patient Instructions Indication:BMI 28.0-28.9,adult Start:17-Apr-2017 Instruction Type:Provider Instructions for Treatment cardiovascular counseling Indication:Coronary artery disease Start:20-Nov-2016 Instruction Type:Provider Instructions for Treatment How to access health informa tion online Indication:BMI 27.0-27.9,adult Start:20-Nov-2016 Instruction Type:Patient Education How to access health informa tion online - Detail Indication:BMI 27.0-27.9,adult Start:20-Nov-2016 Instruction Type:Patient Education Patient Instructions Indication:BMI 27.0-27.9,adult Start:20-Nov-2016 Instruction Type:Provider Instructions for Treatment Patient Instructions Indication:Encounter for screening for malignant neoplasm of prostate (Renamed from Screening for prostate cancer) Start:14-Oct-2016 Instruction Type:Provider Instructions for Treatment How to access health informa tion online - Detail Indication:Non-smoker Start:08-Aug-2016 Instruction Type:Patient Education Patient Instructions Indication:Non-smoker Start:08-Aug-2016 Instruction Type:Provider Instructions for Treatment Patient Instructions Indication:Annual Medicare Phyiscal WITHOUT abnormal findings (Renamed from Encounter for general adult medical examination without abnormal findings) Start:13-Nov-2015 Instruction Type:Provider Instructions for Treatment Patient Instructions Indication:Bee sting reaction, accidental or unintentional, initial encounter Start:08-Nov-2015 Instruction Type:Provider Instructions for Treatment How to access health informa tion online Indication:Bee sting reaction, accidental or unintentional, initial encounter Start:17-Aug-2015 Instruction Type:Patient Education How to access health informa tion online - Detail Indication:Bee sting reaction, accidental or unintentional, initial encounter Start:17-Aug-2015 Instruction Type:Patient Education Patient Instructions Indication:Bee sting reaction, accidental or unintentional, initial encounter Start:17-Aug-2015 Instruction Type:Provider Instructions for Treatment How to access health informa tion online Indication:Coronary artery disease Start:07-Nov-2014 Instruction Type:Patient Education How to access health informa tion online - Detail Indication:Coronary artery disease Start:07-Nov-2014 Instruction Type:Patient Education Patient Instructions Indication:Coronary artery disease Start:07-Nov-2014 Instruction Type:Provider Instructions for Treatment Patient Instructions Indication:Hypothyroidism Start:11-Aug-2013 Instruction Type:Provider Instructions for Treatment Patient Instructions Indication:Hypothyroidism Start:21-Apr-2013 Instruction Type:Provider Instructions for Treatment Patient Instructions Indication:Hypercholesterolemia Start:02-Sep-2012 Instruction Type:Provider Instructions for Treatment Patient Instructions Indication:Hypothyroidism Start:02-Jun-2012 Instruction Type:Provider Instructions for Treatment [facility]; [facility] Work Phone: Instructions* Name Dates Details Patient Instructions Indication:BMI 26.0-26.9,adult Start:10-Dec-2021 Instruction Type:Provider Instructions for Treatment How to Access Health Informa tion Online using Patient Portal and [employer] Indication:BMI 26.0-26.9,adult Start:10-Dec-2021 Instruction Type:Patient Education Patient Instructions Indication:Hyperglycemia Start:07-Jun-2021 Instruction Type:Provider Instructions for Treatment How to Access Health Informa tion Online using Patient Portal and [employer] Apps Indication:Hyperglycemia Start:07-Jun-2021 Instruction Type:Patient Education cardiovascular counseling Indication:Coronary artery disease Start:06-Dec-2020 Instruction Type:Provider Instructions for Treatment Patient Instructions Indication:BMI 26.0-26.9,adult Start:06-Dec-2020 Instruction Type:Provider Instructions for Treatment How to Access Health Informa tion Online using Patient Portal and [employer] Apps Indication:BMI 26.0-26.9,adult Start:06-Dec-2020 Instruction Type:Patient Education Patient Instructions Indication:Non-smoker Start:05-Jun-2020 Instruction Type:Provider Instructions for Treatment How to Access Health Informa tion Online using Patient Portal and [employer] Indication:Non-smoker Start:05-Jun-2020 Instruction Type:Patient Education How to access health informa tion online Indication:BMI 26.0-26.9,adult Start:06-Dec-2019 Instruction Type:Patient Education How to access health informa tion online - Detail Indication:BMI 26.0-26.9,adult Start:06-Dec-2019 Instruction Type:Patient Education Patient Instructions Indication:BMI 26.0-26.9,adult Start:06-Dec-2019 Instruction Type:Provider Instructions for Treatment cardiovascular counseling Indication:Coronary artery disease Start:04-Oct-2019 Instruction Type:Provider Instructions for Treatment How to access health informa tion online Indication:BMI 26.0-26.9,adult Start:04-Oct-2019 Instruction Type:Patient Education How to access health informa tion online - Detail Indication:BMI 26.0-26.9,adult Start:04-Oct-2019 Instruction Type:Patient Education Patient Instructions Indication:BMI 26.0-26.9,adult Start:04-Oct-2019 Instruction Type:Provider Instructions for Treatment How to access health informa tion online - Detail Indication:Non-smoker Start:13-Sep-2019 Instruction Type:Patient Education How to access health informa tion online Indication:Non-smoker Start:13-Sep-2019 Instruction Type:Patient Education Patient Instructions Indication:Non-smoker Start:13-Sep-2019 Instruction Type:Provider Instructions for Treatment How to access health informa tion online Indication:BMI 27.0-27.9,adult Start:03-Mar-2019 Instruction Type:Patient Education How to access health informa tion online - Detail Indication:BMI 27.0-27.9,adult Start:03-Mar-2019 Instruction Type:Patient Education Patient Instructions Indication:BMI 27.0-27.9,adult Start:03-Mar-2019 Instruction Type:Provider Instructions for Treatment How to access health informa tion online Indication:BMI 27.0-27.9,adult Start:15-Feb-2019 Instruction Type:Patient Education How to access health informa tion online - Detail Indication:BMI 27.0-27.9,adult Start:15-Feb-2019 Instruction Type:Patient Education Patient Instructions Indication:BMI 27.0-27.9,adult Start:15-Feb-2019 Instruction Type:Provider Instructions for Treatment How to access health informa tion online Indication:BMI 26.0-26.9,adult Start:20-Jan-2019 Instruction Type:Patient Education Patient Instructions Indication:BMI 26.0-26.9,adult Start:20-Jan-2019 Instruction Type:Provider Instructions for Treatment How to access health informa tion online Indication:Non-smoker Start:15-Oct-2018 Instruction Type:Patient Education How to access health informa tion online - Detail Indication:Non-smoker Start:15-Oct-2018 Instruction Type:Patient Education Patient Instructions Indication:Non-smoker Start:15-Oct-2018 Instruction Type:Provider Instructions for Treatment How to access health informa tion online Indication:Non-smoker Start:29-Apr-2018 Instruction Type:Patient Education How to access health informa tion online - Detail Indication:Non-smoker Start:29-Apr-2018 Instruction Type:Patient Education Patient Instructions Indication:Non-smoker Start:29-Apr-2018 Instruction Type:Provider Instructions for Treatment How to access health informa tion online Indication:Non-smoker Start:23-Apr-2018 Instruction Type:Patient Education How to access health informa tion online - Detail Indication:Non-smoker Start:23-Apr-2018 Instruction Type:Patient Education Patient Instructions Indication:Cough Start:23-Apr-2018 Instruction Type:Provider Instructions for Treatment How to access health informa tion online Indication:Non-smoker Start:05-Jan-2018 Instruction Type:Patient Education How to access health informa tion online - Detail Indication:Non-smoker Start:05-Jan-2018 Instruction Type:Patient Education Patient Instructions Indication:Sore throat Start:05-Jan-2018 Instruction Type:Provider Instructions for Treatment cardiovascular counseling Indication:Coronary artery disease Start:27-Nov-2017 Instruction Type:Provider Instructions for Treatment How to access health informa tion online Indication:Non-smoker Start:27-Nov-2017 Instruction Type:Patient Education How to access health informa tion online - Detail Indication:Non-smoker Start:27-Nov-2017 Instruction Type:Patient Education Patient Instructions Indication:Non-smoker Start:27-Nov-2017 Instruction Type:Provider Instructions for Treatment How to access health informa tion online Indication:BMI 28.0-28.9,adult Start:17-Apr-2017 Instruction Type:Patient Education How to access health informa tion online - Detail Indication:BMI 28.0-28.9,adult Start:17-Apr-2017 Instruction Type:Patient Education Patient Instructions Indication:BMI 28.0-28.9,adult Start:17-Apr-2017 Instruction Type:Provider Instructions for Treatment cardiovascular counseling Indication:Coronary artery disease Start:20-Nov-2016 Instruction Type:Provider Instructions for Treatment How to access health informa tion online Indication:BMI 27.0-27.9,adult Start:20-Nov-2016 Instruction Type:Patient Education How to access health informa tion online - Detail Indication:BMI 27.0-27.9,adult Start:20-Nov-2016 Instruction Type:Patient Education Patient Instructions Indication:BMI 27.0-27.9,adult Start:20-Nov-2016 Instruction Type:Provider Instructions for Treatment Patient Instructions Indication:Encounter for screening for malignant neoplasm of prostate (Renamed from Screening for prostate cancer) Start:14-Oct-2016 Instruction Type:Provider Instructions for Treatment How to access health informa tion online - Detail Indication:Non-smoker Start:08-Aug-2016 Instruction Type:Patient Education Patient Instructions Indication:Non-smoker Start:08-Aug-2016 Instruction Type:Provider Instructions for Treatment Patient Instructions Indication:Annual Medicare Phyiscal WITHOUT abnormal findings (Renamed from Encounter for general adult medical examination without abnormal findings) Start:13-Nov-2015 Instruction Type:Provider Instructions for Treatment Patient Instructions Indication:Bee sting reaction, accidental or unintentional, initial encounter Start:08-Nov-2015 Instruction Type:Provider Instructions for Treatment How to access health informa tion online Indication:Bee sting reaction, accidental or unintentional, initial encounter Start:17-Aug-2015 Instruction Type:Patient Education How to access health informa tion online - Detail Indication:Bee sting reaction, accidental or unintentional, initial encounter Start:17-Aug-2015 Instruction Type:Patient Education Patient Instructions Indication:Bee sting reaction, accidental or unintentional, initial encounter Start:17-Aug-2015 Instruction Type:Provider Instructions for Treatment How to access health informa tion online Indication:Coronary artery disease Start:07-Nov-2014 Instruction Type:Patient Education How to access health informa tion online - Detail Indication:Coronary artery disease Start:07-Nov-2014 Instruction Type:Patient Education Patient Instructions Indication:Coronary artery disease Start:07-Nov-2014 Instruction Type:Provider Instructions for Treatment Patient Instructions Indication:Hypothyroidism Start:11-Aug-2013 Instruction Type:Provider Instructions for Treatment Patient Instructions Indication:Hypothyroidism Start:21-Apr-2013 Instruction Type:Provider Instructions for Treatment Patient Instructions Indication:Hypercholesterolemia Start:02-Sep-2012 Instruction Type:Provider Instructions for Treatment Patient Instructions Indication:Hypothyroidism Start:02-Jun-2012 Instruction Type:Provider Instructions for Treatment [facility]; [facility] Work Phone: Instructions* Name Dates Details Patient Instructions Indication:BMI 26.0-26.9,adult Start:10-Dec-2021 Instruction Type:Provider Instructions for Treatment How to Access Health Informa tion Online using Patient Portal and [employer] Indication:BMI 26.0-26.9,adult Start:10-Dec-2021 Instruction Type:Patient Education Patient Instructions Indication:Hyperglycemia Start:07-Jun-2021 Instruction Type:Provider Instructions for Treatment How to Access Health Informa tion Online using Patient Portal and [employer] Indication:Hyperglycemia Start:07-Jun-2021 Instruction Type:Patient Education cardiovascular counseling Indication:Coronary artery disease Start:06-Dec-2020 Instruction Type:Provider Instructions for Treatment Patient Instructions Indication:BMI 26.0-26.9,adult Start:06-Dec-2020 Instruction Type:Provider Instructions for Treatment How to Access Health Informa tion Online using Patient Portal and [employer] Indication:BMI 26.0-26.9,adult Start:06-Dec-2020 Instruction Type:Patient Education Patient Instructions Indication:Non-smoker Start:05-Jun-2020 Instruction Type:Provider Instructions for Treatment How to Access Health Informa tion Online using Patient Portal and [employer] Indication:Non-smoker Start:05-Jun-2020 Instruction Type:Patient Education How to access health informa tion online Indication:BMI 26.0-26.9,adult Start:06-Dec-2019 Instruction Type:Patient Education How to access health informa tion online - Detail Indication:BMI 26.0-26.9,adult Start:06-Dec-2019 Instruction Type:Patient Education Patient Instructions Indication:BMI 26.0-26.9,adult Start:06-Dec-2019 Instruction Type:Provider Instructions for Treatment cardiovascular counseling Indication:Coronary artery disease Start:04-Oct-2019 Instruction Type:Provider Instructions for Treatment How to access health informa tion online Indication:BMI 26.0-26.9,adult Start:04-Oct-2019 Instruction Type:Patient Education How to access health informa tion online - Detail Indication:BMI 26.0-26.9,adult Start:04-Oct-2019 Instruction Type:Patient Education Patient Instructions Indication:BMI 26.0-26.9,adult Start:04-Oct-2019 Instruction Type:Provider Instructions for Treatment How to access health informa tion online - Detail Indication:Non-smoker Start:13-Sep-2019 Instruction Type:Patient Education How to access health informa tion online Indication:Non-smoker Start:13-Sep-2019 Instruction Type:Patient Education Patient Instructions Indication:Non-smoker Start:13-Sep-2019 Instruction Type:Provider Instructions for Treatment How to access health informa tion online Indication:BMI 27.0-27.9,adult Start:03-Mar-2019 Instruction Type:Patient Education How to access health informa tion online - Detail Indication:BMI 27.0-27.9,adult Start:03-Mar-2019 Instruction Type:Patient Education Patient Instructions Indication:BMI 27.0-27.9,adult Start:03-Mar-2019 Instruction Type:Provider Instructions for Treatment How to access health informa tion online Indication:BMI 27.0-27.9,adult Start:15-Feb-2019 Instruction Type:Patient Education How to access health informa tion online - Detail Indication:BMI 27.0-27.9,adult Start:15-Feb-2019 Instruction Type:Patient Education Patient Instructions Indication:BMI 27.0-27.9,adult Start:15-Feb-2019 Instruction Type:Provider Instructions for Treatment How to access health informa tion online Indication:BMI 26.0-26.9,adult Start:20-Jan-2019 Instruction Type:Patient Education Patient Instructions Indication:BMI 26.0-26.9,adult Start:20-Jan-2019 Instruction Type:Provider Instructions for Treatment How to access health informa tion online Indication:Non-smoker Start:15-Oct-2018 Instruction Type:Patient Education How to access health informa tion online - Detail Indication:Non-smoker Start:15-Oct-2018 Instruction Type:Patient Education Patient Instructions Indication:Non-smoker Start:15-Oct-2018 Instruction Type:Provider Instructions for Treatment How to access health informa tion online Indication:Non-smoker Start:29-Apr-2018 Instruction Type:Patient Education How to access health informa tion online - Detail Indication:Non-smoker Start:29-Apr-2018 Instruction Type:Patient Education Patient Instructions Indication:Non-smoker Start:29-Apr-2018 Instruction Type:Provider Instructions for Treatment How to access health informa tion online Indication:Non-smoker Start:23-Apr-2018 Instruction Type:Patient Education How to access health informa tion online - Detail Indication:Non-smoker Start:23-Apr-2018 Instruction Type:Patient Education Patient Instructions Indication:Cough Start:23-Apr-2018 Instruction Type:Provider Instructions for Treatment How to access health informa tion online Indication:Non-smoker Start:05-Jan-2018 Instruction Type:Patient Education How to access health informa tion online - Detail Indication:Non-smoker Start:05-Jan-2018 Instruction Type:Patient Education Patient Instructions Indication:Sore throat Start:05-Jan-2018 Instruction Type:Provider Instructions for Treatment cardiovascular counseling Indication:Coronary artery disease Start:27-Nov-2017 Instruction Type:Provider Instructions for Treatment How to access health informa tion online Indication:Non-smoker Start:27-Nov-2017 Instruction Type:Patient Education How to access health informa tion online - Detail Indication:Non-smoker Start:27-Nov-2017 Instruction Type:Patient Education Patient Instructions Indication:Non-smoker Start:27-Nov-2017 Instruction Type:Provider Instructions for Treatment How to access health informa tion online Indication:BMI 28.0-28.9,adult Start:17-Apr-2017 Instruction Type:Patient Education How to access health informa tion online - Detail Indication:BMI 28.0-28.9,adult Start:17-Apr-2017 Instruction Type:Patient Education Patient Instructions Indication:BMI 28.0-28.9,adult Start:17-Apr-2017 Instruction Type:Provider Instructions for Treatment cardiovascular counseling Indication:Coronary artery disease Start:20-Nov-2016 Instruction Type:Provider Instructions for Treatment How to access health informa tion online Indication:BMI 27.0-27.9,adult Start:20-Nov-2016 Instruction Type:Patient Education How to access health informa tion online - Detail Indication:BMI 27.0-27.9,adult Start:20-Nov-2016 Instruction Type:Patient Education Patient Instructions Indication:BMI 27.0-27.9,adult Start:20-Nov-2016 Instruction Type:Provider Instructions for Treatment Patient Instructions Indication:Encounter for screening for malignant neoplasm of prostate (Renamed from Screening for prostate cancer) Start:14-Oct-2016 Instruction Type:Provider Instructions for Treatment How to access health informa tion online - Detail Indication:Non-smoker Start:08-Aug-2016 Instruction Type:Patient Education Patient Instructions Indication:Non-smoker Start:08-Aug-2016 Instruction Type:Provider Instructions for Treatment Patient Instructions Indication:Annual Medicare Phyiscal WITHOUT abnormal findings (Renamed from Encounter for general adult medical examination without abnormal findings) Start:13-Nov-2015 Instruction Type:Provider Instructions for Treatment Patient Instructions Indication:Bee sting reaction, accidental or unintentional, initial encounter Start:08-Nov-2015 Instruction Type:Provider Instructions for Treatment How to access health informa tion online Indication:Bee sting reaction, accidental or unintentional, initial encounter Start:17-Aug-2015 Instruction Type:Patient Education How to access health informa tion online - Detail Indication:Bee sting reaction, accidental or unintentional, initial encounter Start:17-Aug-2015 Instruction Type:Patient Education Patient Instructions Indication:Bee sting reaction, accidental or unintentional, initial encounter Start:17-Aug-2015 Instruction Type:Provider Instructions for Treatment How to access health informa tion online Indication:Coronary artery disease Start:07-Nov-2014 Instruction Type:Patient Education How to access health informa tion online - Detail Indication:Coronary artery disease Start:07-Nov-2014 Instruction Type:Patient Education Patient Instructions Indication:Coronary artery disease Start:07-Nov-2014 Instruction Type:Provider Instructions for Treatment Patient Instructions Indication:Hypothyroidism Start:11-Aug-2013 Instruction Type:Provider Instructions for Treatment Patient Instructions Indication:Hypothyroidism Start:21-Apr-2013 Instruction Type:Provider Instructions for Treatment Patient Instructions Indication:Hypercholesterolemia Start:02-Sep-2012 Instruction Type:Provider Instructions for Treatment Patient Instructions Indication:Hypothyroidism Start:02-Jun-2012 Instruction Type:Provider Instructions for Treatment [facility]; [facility] Work Phone: Instructions* Name Dates Details Patient Instructions Indication:BMI 26.0-26.9,adult Start:10-Dec-2021 Instruction Type:Provider Instructions for Treatment How to Access Health Informa tion Online using Patient Portal and [employer] Indication:BMI 26.0-26.9,adult Start:10-Dec-2021 Instruction Type:Patient Education Patient Instructions Indication:Hyperglycemia Start:07-Jun-2021 Instruction Type:Provider Instructions for Treatment How to Access Health Informa tion Online using Patient Portal and [employer] Apps Indication:Hyperglycemia Start:07-Jun-2021 Instruction Type:Patient Education cardiovascular counseling Indication:Coronary artery disease Start:06-Dec-2020 Instruction Type:Provider Instructions for Treatment Patient Instructions Indication:BMI 26.0-26.9,adult Start:06-Dec-2020 Instruction Type:Provider Instructions for Treatment How to Access Health Informa tion Online using Patient Portal and [employer] Apps Indication:BMI 26.0-26.9,adult Start:06-Dec-2020 Instruction Type:Patient Education Patient Instructions Indication:Non-smoker Start:05-Jun-2020 Instruction Type:Provider Instructions for Treatment How to Access Health Informa tion Online using Patient Portal and [employer] Apps Indication:Non-smoker Start:05-Jun-2020 Instruction Type:Patient Education How to access health informa tion online Indication:BMI 26.0-26.9,adult Start:06-Dec-2019 Instruction Type:Patient Education How to access health informa tion online - Detail Indication:BMI 26.0-26.9,adult Start:06-Dec-2019 Instruction Type:Patient Education Patient Instructions Indication:BMI 26.0-26.9,adult Start:06-Dec-2019 Instruction Type:Provider Instructions for Treatment cardiovascular counseling Indication:Coronary artery disease Start:04-Oct-2019 Instruction Type:Provider Instructions for Treatment How to access health informa tion online Indication:BMI 26.0-26.9,adult Start:04-Oct-2019 Instruction Type:Patient Education How to access health informa tion online - Detail Indication:BMI 26.0-26.9,adult Start:04-Oct-2019 Instruction Type:Patient Education Patient Instructions Indication:BMI 26.0-26.9,adult Start:04-Oct-2019 Instruction Type:Provider Instructions for Treatment How to access health informa tion online - Detail Indication:Non-smoker Start:13-Sep-2019 Instruction Type:Patient Education How to access health informa tion online Indication:Non-smoker Start:13-Sep-2019 Instruction Type:Patient Education Patient Instructions Indication:Non-smoker Start:13-Sep-2019 Instruction Type:Provider Instructions for Treatment How to access health informa tion online Indication:BMI 27.0-27.9,adult Start:03-Mar-2019 Instruction Type:Patient Education How to access health informa tion online - Detail Indication:BMI 27.0-27.9,adult Start:03-Mar-2019 Instruction Type:Patient Education Patient Instructions Indication:BMI 27.0-27.9,adult Start:03-Mar-2019 Instruction Type:Provider Instructions for Treatment How to access health informa tion online Indication:BMI 27.0-27.9,adult Start:15-Feb-2019 Instruction Type:Patient Education How to access health informa tion online - Detail Indication:BMI 27.0-27.9,adult Start:15-Feb-2019 Instruction Type:Patient Education Patient Instructions Indication:BMI 27.0-27.9,adult Start:15-Feb-2019 Instruction Type:Provider Instructions for Treatment How to access health informa tion online Indication:BMI 26.0-26.9,adult Start:20-Jan-2019 Instruction Type:Patient Education Patient Instructions Indication:BMI 26.0-26.9,adult Start:20-Jan-2019 Instruction Type:Provider Instructions for Treatment How to access health informa tion online Indication:Non-smoker Start:15-Oct-2018 Instruction Type:Patient Education How to access health informa tion online - Detail Indication:Non-smoker Start:15-Oct-2018 Instruction Type:Patient Education Patient Instructions Indication:Non-smoker Start:15-Oct-2018 Instruction Type:Provider Instructions for Treatment How to access health informa tion online Indication:Non-smoker Start:29-Apr-2018 Instruction Type:Patient Education How to access health informa tion online - Detail Indication:Non-smoker Start:29-Apr-2018 Instruction Type:Patient Education Patient Instructions Indication:Non-smoker Start:29-Apr-2018 Instruction Type:Provider Instructions for Treatment How to access health informa tion online Indication:Non-smoker Start:23-Apr-2018 Instruction Type:Patient Education How to access health informa tion online - Detail Indication:Non-smoker Start:23-Apr-2018 Instruction Type:Patient Education Patient Instructions Indication:Cough Start:23-Apr-2018 Instruction Type:Provider Instructions for Treatment How to access health informa tion online Indication:Non-smoker Start:05-Jan-2018 Instruction Type:Patient Education How to access health informa tion online - Detail Indication:Non-smoker Start:05-Jan-2018 Instruction Type:Patient Education Patient Instructions Indication:Sore throat Start:05-Jan-2018 Instruction Type:Provider Instructions for Treatment cardiovascular counseling Indication:Coronary artery disease Start:27-Nov-2017 Instruction Type:Provider Instructions for Treatment How to access health informa tion online Indication:Non-smoker Start:27-Nov-2017 Instruction Type:Patient Education How to access health informa tion online - Detail Indication:Non-smoker Start:27-Nov-2017 Instruction Type:Patient Education Patient Instructions Indication:Non-smoker Start:27-Nov-2017 Instruction Type:Provider Instructions for Treatment How to access health informa tion online Indication:BMI 28.0-28.9,adult Start:17-Apr-2017 Instruction Type:Patient Education How to access health informa tion online - Detail Indication:BMI 28.0-28.9,adult Start:17-Apr-2017 Instruction Type:Patient Education Patient Instructions Indication:BMI 28.0-28.9,adult Start:17-Apr-2017 Instruction Type:Provider Instructions for Treatment cardiovascular counseling Indication:Coronary artery disease Start:20-Nov-2016 Instruction Type:Provider Instructions for Treatment How to access health informa tion online Indication:BMI 27.0-27.9,adult Start:20-Nov-2016 Instruction Type:Patient Education How to access health informa tion online - Detail Indication:BMI 27.0-27.9,adult Start:20-Nov-2016 Instruction Type:Patient Education Patient Instructions Indication:BMI 27.0-27.9,adult Start:20-Nov-2016 Instruction Type:Provider Instructions for Treatment Patient Instructions Indication:Encounter for screening for malignant neoplasm of prostate (Renamed from Screening for prostate cancer) Start:14-Oct-2016 Instruction Type:Provider Instructions for Treatment How to access health informa tion online - Detail Indication:Non-smoker Start:08-Aug-2016 Instruction Type:Patient Education Patient Instructions Indication:Non-smoker Start:08-Aug-2016 Instruction Type:Provider Instructions for Treatment Patient Instructions Indication:Annual Medicare Phyiscal WITHOUT abnormal findings (Renamed from Encounter for general adult medical examination without abnormal findings) Start:13-Nov-2015 Instruction Type:Provider Instructions for Treatment Patient Instructions Indication:Bee sting reaction, accidental or unintentional, initial encounter Start:08-Nov-2015 Instruction Type:Provider Instructions for Treatment How to access health informa tion online Indication:Bee sting reaction, accidental or unintentional, initial encounter Start:17-Aug-2015 Instruction Type:Patient Education How to access health informa tion online - Detail Indication:Bee sting reaction, accidental or unintentional, initial encounter Start:17-Aug-2015 Instruction Type:Patient Education Patient Instructions Indication:Bee sting reaction, accidental or unintentional, initial encounter Start:17-Aug-2015 Instruction Type:Provider Instructions for Treatment How to access health informa tion online Indication:Coronary artery disease Start:07-Nov-2014 Instruction Type:Patient Education How to access health informa tion online - Detail Indication:Coronary artery disease Start:07-Nov-2014 Instruction Type:Patient Education Patient Instructions Indication:Coronary artery disease Start:07-Nov-2014 Instruction Type:Provider Instructions for Treatment Patient Instructions Indication:Hypothyroidism Start:11-Aug-2013 Instruction Type:Provider Instructions for Treatment Patient Instructions Indication:Hypothyroidism Start:21-Apr-2013 Instruction Type:Provider Instructions for Treatment Patient Instructions Indication:Hypercholesterolemia Start:02-Sep-2012 Instruction Type:Provider Instructions for Treatment Patient Instructions Indication:Hypothyroidism Start:02-Jun-2012 Instruction Type:Provider Instructions for Treatment [facility]; [facility] Work Phone: Instructions* Name Dates Details Patient Instructions Indication:Non-smoker Start:12-Jun-2022 Instruction Type:Provider Instructions for Treatment How to Access Health Informa tion Online using Patient Portal and [employer] Indication:Non-smoker Start:12-Jun-2022 Instruction Type:Patient Education Patient Instructions Indication:BMI 26.0-26.9,adult Start:10-Dec-2021 Instruction Type:Provider Instructions for Treatment How to Access Health Informa tion Online using Patient Portal and [employer] Indication:BMI 26.0-26.9,adult Start:10-Dec-2021 Instruction Type:Patient Education Patient Instructions Indication:Hyperglycemia Start:07-Jun-2021 Instruction Type:Provider Instructions for Treatment How to Access Health Informa tion Online using Patient Portal and [employer] Indication:Hyperglycemia Start:07-Jun-2021 Instruction Type:Patient Education cardiovascular counseling Indication:Coronary artery disease Start:06-Dec-2020 Instruction Type:Provider Instructions for Treatment Patient Instructions Indication:BMI 26.0-26.9,adult Start:06-Dec-2020 Instruction Type:Provider Instructions for Treatment How to Access Health Informa tion Online using Patient Portal and [employer] Indication:BMI 26.0-26.9,adult Start:06-Dec-2020 Instruction Type:Patient Education Patient Instructions Indication:Non-smoker Start:05-Jun-2020 Instruction Type:Provider Instructions for Treatment How to Access Health Informa tion Online using Patient Portal and [employer] Indication:Non-smoker Start:05-Jun-2020 Instruction Type:Patient Education How to access health informa tion online Indication:BMI 26.0-26.9,adult Start:06-Dec-2019 Instruction Type:Patient Education How to access health informa tion online - Detail Indication:BMI 26.0-26.9,adult Start:06-Dec-2019 Instruction Type:Patient Education Patient Instructions Indication:BMI 26.0-26.9,adult Start:06-Dec-2019 Instruction Type:Provider Instructions for Treatment cardiovascular counseling Indication:Coronary artery disease Start:04-Oct-2019 Instruction Type:Provider Instructions for Treatment How to access health informa tion online Indication:BMI 26.0-26.9,adult Start:04-Oct-2019 Instruction Type:Patient Education How to access health informa tion online - Detail Indication:BMI 26.0-26.9,adult Start:04-Oct-2019 Instruction Type:Patient Education Patient Instructions Indication:BMI 26.0-26.9,adult Start:04-Oct-2019 Instruction Type:Provider Instructions for Treatment How to access health informa tion online - Detail Indication:Non-smoker Start:13-Sep-2019 Instruction Type:Patient Education How to access health informa tion online Indication:Non-smoker Start:13-Sep-2019 Instruction Type:Patient Education Patient Instructions Indication:Non-smoker Start:13-Sep-2019 Instruction Type:Provider Instructions for Treatment How to access health informa tion online Indication:BMI 27.0-27.9,adult Start:03-Mar-2019 Instruction Type:Patient Education How to access health informa tion online - Detail Indication:BMI 27.0-27.9,adult Start:03-Mar-2019 Instruction Type:Patient Education Patient Instructions Indication:BMI 27.0-27.9,adult Start:03-Mar-2019 Instruction Type:Provider Instructions for Treatment How to access health informa tion online Indication:BMI 27.0-27.9,adult Start:15-Feb-2019 Instruction Type:Patient Education How to access health informa tion online - Detail Indication:BMI 27.0-27.9,adult Start:15-Feb-2019 Instruction Type:Patient Education Patient Instructions Indication:BMI 27.0-27.9,adult Start:15-Feb-2019 Instruction Type:Provider Instructions for Treatment How to access health informa tion online Indication:BMI 26.0-26.9,adult Start:20-Jan-2019 Instruction Type:Patient Education Patient Instructions Indication:BMI 26.0-26.9,adult Start:20-Jan-2019 Instruction Type:Provider Instructions for Treatment How to access health informa tion online Indication:Non-smoker Start:15-Oct-2018 Instruction Type:Patient Education How to access health informa tion online - Detail Indication:Non-smoker Start:15-Oct-2018 Instruction Type:Patient Education Patient Instructions Indication:Non-smoker Start:15-Oct-2018 Instruction Type:Provider Instructions for Treatment How to access health informa tion online Indication:Non-smoker Start:29-Apr-2018 Instruction Type:Patient Education How to access health informa tion online - Detail Indication:Non-smoker Start:29-Apr-2018 Instruction Type:Patient Education Patient Instructions Indication:Non-smoker Start:29-Apr-2018 Instruction Type:Provider Instructions for Treatment How to access health informa tion online Indication:Non-smoker Start:23-Apr-2018 Instruction Type:Patient Education How to access health informa tion online - Detail Indication:Non-smoker Start:23-Apr-2018 Instruction Type:Patient Education Patient Instructions Indication:Cough Start:23-Apr-2018 Instruction Type:Provider Instructions for Treatment How to access health informa tion online Indication:Non-smoker Start:05-Jan-2018 Instruction Type:Patient Education How to access health informa tion online - Detail Indication:Non-smoker Start:05-Jan-2018 Instruction Type:Patient Education Patient Instructions Indication:Sore throat Start:05-Jan-2018 Instruction Type:Provider Instructions for Treatment cardiovascular counseling Indication:Coronary artery disease Start:27-Nov-2017 Instruction Type:Provider Instructions for Treatment How to access health informa tion online Indication:Non-smoker Start:27-Nov-2017 Instruction Type:Patient Education How to access health informa tion online - Detail Indication:Non-smoker Start:27-Nov-2017 Instruction Type:Patient Education Patient Instructions Indication:Non-smoker Start:27-Nov-2017 Instruction Type:Provider Instructions for Treatment How to access health informa tion online Indication:BMI 28.0-28.9,adult Start:17-Apr-2017 Instruction Type:Patient Education How to access health informa tion online - Detail Indication:BMI 28.0-28.9,adult Start:17-Apr-2017 Instruction Type:Patient Education Patient Instructions Indication:BMI 28.0-28.9,adult Start:17-Apr-2017 Instruction Type:Provider Instructions for Treatment cardiovascular counseling Indication:Coronary artery disease Start:20-Nov-2016 Instruction Type:Provider Instructions for Treatment How to access health informa tion online Indication:BMI 27.0-27.9,adult Start:20-Nov-2016 Instruction Type:Patient Education How to access health informa tion online - Detail Indication:BMI 27.0-27.9,adult Start:20-Nov-2016 Instruction Type:Patient Education Patient Instructions Indication:BMI 27.0-27.9,adult Start:20-Nov-2016 Instruction Type:Provider Instructions for Treatment Patient Instructions Indication:Encounter for screening for malignant neoplasm of prostate (Renamed from Screening for prostate cancer) Start:14-Oct-2016 Instruction Type:Provider Instructions for Treatment How to access health informa tion online - Detail Indication:Non-smoker Start:08-Aug-2016 Instruction Type:Patient Education Patient Instructions Indication:Non-smoker Start:08-Aug-2016 Instruction Type:Provider Instructions for Treatment Patient Instructions Indication:Annual Medicare Phyiscal WITHOUT abnormal findings (Renamed from Encounter for general adult medical examination without abnormal findings) Start:13-Nov-2015 Instruction Type:Provider Instructions for Treatment Patient Instructions Indication:Bee sting reaction, accidental or unintentional, initial encounter Start:08-Nov-2015 Instruction Type:Provider Instructions for Treatment How to access health informa tion online Indication:Bee sting reaction, accidental or unintentional, initial encounter Start:17-Aug-2015 Instruction Type:Patient Education How to access health informa tion online - Detail Indication:Bee sting reaction, accidental or unintentional, initial encounter Start:17-Aug-2015 Instruction Type:Patient Education Patient Instructions Indication:Bee sting reaction, accidental or unintentional, initial encounter Start:17-Aug-2015 Instruction Type:Provider Instructions for Treatment How to access health informa tion online Indication:Coronary artery disease Start:07-Nov-2014 Instruction Type:Patient Education How to access health informa tion online - Detail Indication:Coronary artery disease Start:07-Nov-2014 Instruction Type:Patient Education Patient Instructions Indication:Coronary artery disease Start:07-Nov-2014 Instruction Type:Provider Instructions for Treatment Patient Instructions Indication:Hypothyroidism Start:11-Aug-2013 Instruction Type:Provider Instructions for Treatment Patient Instructions Indication:Hypothyroidism Start:21-Apr-2013 Instruction Type:Provider Instructions for Treatment Patient Instructions Indication:Hypercholesterolemia Start:02-Sep-2012 Instruction Type:Provider Instructions for Treatment Patient Instructions Indication:Hypothyroidism Start:02-Jun-2012 Instruction Type:Provider Instructions for Treatment [facility]; [facility] Work Phone: Instructions* Name Dates Details Patient Instructions Indication:Non-smoker Start:12-Jun-2022 Instruction Type:Provider Instructions for Treatment How to Access Health Informa tion Online using Patient Portal and [employer] Apps Indication:Non-smoker Start:12-Jun-2022 Instruction Type:Patient Education Patient Instructions Indication:BMI 26.0-26.9,adult Start:10-Dec-2021 Instruction Type:Provider Instructions for Treatment How to Access Health Informa tion Online using Patient Portal and [employer] Apps Indication:BMI 26.0-26.9,adult Start:10-Dec-2021 Instruction Type:Patient Education Patient Instructions Indication:Hyperglycemia Start:07-Jun-2021 Instruction Type:Provider Instructions for Treatment How to Access Health Informa tion Online using Patient Portal and [employer] Apps Indication:Hyperglycemia Start:07-Jun-2021 Instruction Type:Patient Education cardiovascular counseling Indication:Coronary artery disease Start:06-Dec-2020 Instruction Type:Provider Instructions for Treatment Patient Instructions Indication:BMI 26.0-26.9,adult Start:06-Dec-2020 Instruction Type:Provider Instructions for Treatment How to Access Health Informa tion Online using Patient Portal and [employer] Indication:BMI 26.0-26.9,adult Start:06-Dec-2020 Instruction Type:Patient Education Patient Instructions Indication:Non-smoker Start:05-Jun-2020 Instruction Type:Provider Instructions for Treatment How to Access Health Informa tion Online using Patient Portal and [employer] Indication:Non-smoker Start:05-Jun-2020 Instruction Type:Patient Education How to access health informa tion online Indication:BMI 26.0-26.9,adult Start:06-Dec-2019 Instruction Type:Patient Education How to access health informa tion online - Detail Indication:BMI 26.0-26.9,adult Start:06-Dec-2019 Instruction Type:Patient Education Patient Instructions Indication:BMI 26.0-26.9,adult Start:06-Dec-2019 Instruction Type:Provider Instructions for Treatment cardiovascular counseling Indication:Coronary artery disease Start:04-Oct-2019 Instruction Type:Provider Instructions for Treatment How to access health informa tion online Indication:BMI 26.0-26.9,adult Start:04-Oct-2019 Instruction Type:Patient Education How to access health informa tion online - Detail Indication:BMI 26.0-26.9,adult Start:04-Oct-2019 Instruction Type:Patient Education Patient Instructions Indication:BMI 26.0-26.9,adult Start:04-Oct-2019 Instruction Type:Provider Instructions for Treatment How to access health informa tion online - Detail Indication:Non-smoker Start:13-Sep-2019 Instruction Type:Patient Education How to access health informa tion online Indication:Non-smoker Start:13-Sep-2019 Instruction Type:Patient Education Patient Instructions Indication:Non-smoker Start:13-Sep-2019 Instruction Type:Provider Instructions for Treatment How to access health informa tion online Indication:BMI 27.0-27.9,adult Start:03-Mar-2019 Instruction Type:Patient Education How to access health informa tion online - Detail Indication:BMI 27.0-27.9,adult Start:03-Mar-2019 Instruction Type:Patient Education Patient Instructions Indication:BMI 27.0-27.9,adult Start:03-Mar-2019 Instruction Type:Provider Instructions for Treatment How to access health informa tion online Indication:BMI 27.0-27.9,adult Start:15-Feb-2019 Instruction Type:Patient Education How to access health informa tion online - Detail Indication:BMI 27.0-27.9,adult Start:15-Feb-2019 Instruction Type:Patient Education Patient Instructions Indication:BMI 27.0-27.9,adult Start:15-Feb-2019 Instruction Type:Provider Instructions for Treatment How to access health informa tion online Indication:BMI 26.0-26.9,adult Start:20-Jan-2019 Instruction Type:Patient Education Patient Instructions Indication:BMI 26.0-26.9,adult Start:20-Jan-2019 Instruction Type:Provider Instructions for Treatment How to access health informa tion online Indication:Non-smoker Start:15-Oct-2018 Instruction Type:Patient Education How to access health informa tion online - Detail Indication:Non-smoker Start:15-Oct-2018 Instruction Type:Patient Education Patient Instructions Indication:Non-smoker Start:15-Oct-2018 Instruction Type:Provider Instructions for Treatment How to access health informa tion online Indication:Non-smoker Start:29-Apr-2018 Instruction Type:Patient Education How to access health informa tion online - Detail Indication:Non-smoker Start:29-Apr-2018 Instruction Type:Patient Education Patient Instructions Indication:Non-smoker Start:29-Apr-2018 Instruction Type:Provider Instructions for Treatment How to access health informa tion online Indication:Non-smoker Start:23-Apr-2018 Instruction Type:Patient Education How to access health informa tion online - Detail Indication:Non-smoker Start:23-Apr-2018 Instruction Type:Patient Education Patient Instructions Indication:Cough Start:23-Apr-2018 Instruction Type:Provider Instructions for Treatment How to access health informa tion online Indication:Non-smoker Start:05-Jan-2018 Instruction Type:Patient Education How to access health informa tion online - Detail Indication:Non-smoker Start:05-Jan-2018 Instruction Type:Patient Education Patient Instructions Indication:Sore throat Start:05-Jan-2018 Instruction Type:Provider Instructions for Treatment cardiovascular counseling Indication:Coronary artery disease Start:27-Nov-2017 Instruction Type:Provider Instructions for Treatment How to access health informa tion online Indication:Non-smoker Start:27-Nov-2017 Instruction Type:Patient Education How to access health informa tion online - Detail Indication:Non-smoker Start:27-Nov-2017 Instruction Type:Patient Education Patient Instructions Indication:Non-smoker Start:27-Nov-2017 Instruction Type:Provider Instructions for Treatment How to access health informa tion online Indication:BMI 28.0-28.9,adult Start:17-Apr-2017 Instruction Type:Patient Education How to access health informa tion online - Detail Indication:BMI 28.0-28.9,adult Start:17-Apr-2017 Instruction Type:Patient Education Patient Instructions Indication:BMI 28.0-28.9,adult Start:17-Apr-2017 Instruction Type:Provider Instructions for Treatment cardiovascular counseling Indication:Coronary artery disease Start:20-Nov-2016 Instruction Type:Provider Instructions for Treatment How to access health informa tion online Indication:BMI 27.0-27.9,adult Start:20-Nov-2016 Instruction Type:Patient Education How to access health informa tion online - Detail Indication:BMI 27.0-27.9,adult Start:20-Nov-2016 Instruction Type:Patient Education Patient Instructions Indication:BMI 27.0-27.9,adult Start:20-Nov-2016 Instruction Type:Provider Instructions for Treatment Patient Instructions Indication:Encounter for screening for malignant neoplasm of prostate (Renamed from Screening for prostate cancer) Start:14-Oct-2016 Instruction Type:Provider Instructions for Treatment How to access health informa tion online - Detail Indication:Non-smoker Start:08-Aug-2016 Instruction Type:Patient Education Patient Instructions Indication:Non-smoker Start:08-Aug-2016 Instruction Type:Provider Instructions for Treatment Patient Instructions Indication:Annual Medicare Phyiscal WITHOUT abnormal findings (Renamed from Encounter for general adult medical examination without abnormal findings) Start:13-Nov-2015 Instruction Type:Provider Instructions for Treatment Patient Instructions Indication:Bee sting reaction, accidental or unintentional, initial encounter Start:08-Nov-2015 Instruction Type:Provider Instructions for Treatment How to access health informa tion online Indication:Bee sting reaction, accidental or unintentional, initial encounter Start:17-Aug-2015 Instruction Type:Patient Education How to access health informa tion online - Detail Indication:Bee sting reaction, accidental or unintentional, initial encounter Start:17-Aug-2015 Instruction Type:Patient Education Patient Instructions Indication:Bee sting reaction, accidental or unintentional, initial encounter Start:17-Aug-2015 Instruction Type:Provider Instructions for Treatment How to access health informa tion online Indication:Coronary artery disease Start:07-Nov-2014 Instruction Type:Patient Education How to access health informa tion online - Detail Indication:Coronary artery disease Start:07-Nov-2014 Instruction Type:Patient Education Patient Instructions Indication:Coronary artery disease Start:07-Nov-2014 Instruction Type:Provider Instructions for Treatment Patient Instructions Indication:Hypothyroidism Start:11-Aug-2013 Instruction Type:Provider Instructions for Treatment Patient Instructions Indication:Hypothyroidism Start:21-Apr-2013 Instruction Type:Provider Instructions for Treatment Patient Instructions Indication:Hypercholesterolemia Start:02-Sep-2012 Instruction Type:Provider Instructions for Treatment Patient Instructions Indication:Hypothyroidism Start:02-Jun-2012 Instruction Type:Provider Instructions for Treatment [facility]; [facility] Work Phone: Instructions* Name Dates Details Patient Instructions Indication:Non-smoker Start:12-Jun-2022 Instruction Type:Provider Instructions for Treatment How to Access Health Informa tion Online using Patient Portal and [employer] Indication:Non-smoker Start:12-Jun-2022 Instruction Type:Patient Education Patient Instructions Indication:BMI 26.0-26.9,adult Start:10-Dec-2021 Instruction Type:Provider Instructions for Treatment How to Access Health Informa tion Online using Patient Portal and [employer] Indication:BMI 26.0-26.9,adult Start:10-Dec-2021 Instruction Type:Patient Education Patient Instructions Indication:Hyperglycemia Start:07-Jun-2021 Instruction Type:Provider Instructions for Treatment How to Access Health Informa tion Online using Patient Portal and [employer] Indication:Hyperglycemia Start:07-Jun-2021 Instruction Type:Patient Education cardiovascular counseling Indication:Coronary artery disease Start:06-Dec-2020 Instruction Type:Provider Instructions for Treatment Patient Instructions Indication:BMI 26.0-26.9,adult Start:06-Dec-2020 Instruction Type:Provider Instructions for Treatment How to Access Health Informa tion Online using Patient Portal and [employer] Indication:BMI 26.0-26.9,adult Start:06-Dec-2020 Instruction Type:Patient Education Patient Instructions Indication:Non-smoker Start:05-Jun-2020 Instruction Type:Provider Instructions for Treatment How to Access Health Informa tion Online using Patient Portal and [employer] Indication:Non-smoker Start:05-Jun-2020 Instruction Type:Patient Education How to access health informa tion online Indication:BMI 26.0-26.9,adult Start:06-Dec-2019 Instruction Type:Patient Education How to access health informa tion online - Detail Indication:BMI 26.0-26.9,adult Start:06-Dec-2019 Instruction Type:Patient Education Patient Instructions Indication:BMI 26.0-26.9,adult Start:06-Dec-2019 Instruction Type:Provider Instructions for Treatment cardiovascular counseling Indication:Coronary artery disease Start:04-Oct-2019 Instruction Type:Provider Instructions for Treatment How to access health informa tion online Indication:BMI 26.0-26.9,adult Start:04-Oct-2019 Instruction Type:Patient Education How to access health informa tion online - Detail Indication:BMI 26.0-26.9,adult Start:04-Oct-2019 Instruction Type:Patient Education Patient Instructions Indication:BMI 26.0-26.9,adult Start:04-Oct-2019 Instruction Type:Provider Instructions for Treatment How to access health informa tion online - Detail Indication:Non-smoker Start:13-Sep-2019 Instruction Type:Patient Education How to access health informa tion online Indication:Non-smoker Start:13-Sep-2019 Instruction Type:Patient Education Patient Instructions Indication:Non-smoker Start:13-Sep-2019 Instruction Type:Provider Instructions for Treatment How to access health informa tion online Indication:BMI 27.0-27.9,adult Start:03-Mar-2019 Instruction Type:Patient Education How to access health informa tion online - Detail Indication:BMI 27.0-27.9,adult Start:03-Mar-2019 Instruction Type:Patient Education Patient Instructions Indication:BMI 27.0-27.9,adult Start:03-Mar-2019 Instruction Type:Provider Instructions for Treatment How to access health informa tion online Indication:BMI 27.0-27.9,adult Start:15-Feb-2019 Instruction Type:Patient Education How to access health informa tion online - Detail Indication:BMI 27.0-27.9,adult Start:15-Feb-2019 Instruction Type:Patient Education Patient Instructions Indication:BMI 27.0-27.9,adult Start:15-Feb-2019 Instruction Type:Provider Instructions for Treatment How to access health informa tion online Indication:BMI 26.0-26.9,adult Start:20-Jan-2019 Instruction Type:Patient Education Patient Instructions Indication:BMI 26.0-26.9,adult Start:20-Jan-2019 Instruction Type:Provider Instructions for Treatment How to access health informa tion online Indication:Non-smoker Start:15-Oct-2018 Instruction Type:Patient Education How to access health informa tion online - Detail Indication:Non-smoker Start:15-Oct-2018 Instruction Type:Patient Education Patient Instructions Indication:Non-smoker Start:15-Oct-2018 Instruction Type:Provider Instructions for Treatment How to access health informa tion online Indication:Non-smoker Start:29-Apr-2018 Instruction Type:Patient Education How to access health informa tion online - Detail Indication:Non-smoker Start:29-Apr-2018 Instruction Type:Patient Education Patient Instructions Indication:Non-smoker Start:29-Apr-2018 Instruction Type:Provider Instructions for Treatment How to access health informa tion online Indication:Non-smoker Start:23-Apr-2018 Instruction Type:Patient Education How to access health informa tion online - Detail Indication:Non-smoker Start:23-Apr-2018 Instruction Type:Patient Education Patient Instructions Indication:Cough Start:23-Apr-2018 Instruction Type:Provider Instructions for Treatment How to access health informa tion online Indication:Non-smoker Start:05-Jan-2018 Instruction Type:Patient Education How to access health informa tion online - Detail Indication:Non-smoker Start:05-Jan-2018 Instruction Type:Patient Education Patient Instructions Indication:Sore throat Start:05-Jan-2018 Instruction Type:Provider Instructions for Treatment cardiovascular counseling Indication:Coronary artery disease Start:27-Nov-2017 Instruction Type:Provider Instructions for Treatment How to access health informa tion online Indication:Non-smoker Start:27-Nov-2017 Instruction Type:Patient Education How to access health informa tion online - Detail Indication:Non-smoker Start:27-Nov-2017 Instruction Type:Patient Education Patient Instructions Indication:Non-smoker Start:27-Nov-2017 Instruction Type:Provider Instructions for Treatment How to access health informa tion online Indication:BMI 28.0-28.9,adult Start:17-Apr-2017 Instruction Type:Patient Education How to access health informa tion online - Detail Indication:BMI 28.0-28.9,adult Start:17-Apr-2017 Instruction Type:Patient Education Patient Instructions Indication:BMI 28.0-28.9,adult Start:17-Apr-2017 Instruction Type:Provider Instructions for Treatment cardiovascular counseling Indication:Coronary artery disease Start:20-Nov-2016 Instruction Type:Provider Instructions for Treatment How to access health informa tion online Indication:BMI 27.0-27.9,adult Start:20-Nov-2016 Instruction Type:Patient Education How to access health informa tion online - Detail Indication:BMI 27.0-27.9,adult Start:20-Nov-2016 Instruction Type:Patient Education Patient Instructions Indication:BMI 27.0-27.9,adult Start:20-Nov-2016 Instruction Type:Provider Instructions for Treatment Patient Instructions Indication:Encounter for screening for malignant neoplasm of prostate (Renamed from Screening for prostate cancer) Start:14-Oct-2016 Instruction Type:Provider Instructions for Treatment How to access health informa tion online - Detail Indication:Non-smoker Start:08-Aug-2016 Instruction Type:Patient Education Patient Instructions Indication:Non-smoker Start:08-Aug-2016 Instruction Type:Provider Instructions for Treatment Patient Instructions Indication:Annual Medicare Phyiscal WITHOUT abnormal findings (Renamed from Encounter for general adult medical examination without abnormal findings) Start:13-Nov-2015 Instruction Type:Provider Instructions for Treatment Patient Instructions Indication:Bee sting reaction, accidental or unintentional, initial encounter Start:08-Nov-2015 Instruction Type:Provider Instructions for Treatment How to access health informa tion online Indication:Bee sting reaction, accidental or unintentional, initial encounter Start:17-Aug-2015 Instruction Type:Patient Education How to access health informa tion online - Detail Indication:Bee sting reaction, accidental or unintentional, initial encounter Start:17-Aug-2015 Instruction Type:Patient Education Patient Instructions Indication:Bee sting reaction, accidental or unintentional, initial encounter Start:17-Aug-2015 Instruction Type:Provider Instructions for Treatment How to access health informa tion online Indication:Coronary artery disease Start:07-Nov-2014 Instruction Type:Patient Education How to access health informa tion online - Detail Indication:Coronary artery disease Start:07-Nov-2014 Instruction Type:Patient Education Patient Instructions Indication:Coronary artery disease Start:07-Nov-2014 Instruction Type:Provider Instructions for Treatment Patient Instructions Indication:Hypothyroidism Start:11-Aug-2013 Instruction Type:Provider Instructions for Treatment Patient Instructions Indication:Hypothyroidism Start:21-Apr-2013 Instruction Type:Provider Instructions for Treatment Patient Instructions Indication:Hypercholesterolemia Start:02-Sep-2012 Instruction Type:Provider Instructions for Treatment Patient Instructions Indication:Hypothyroidism Start:02-Jun-2012 Instruction Type:Provider Instructions for Treatment [facility] Work Phone: Instructions* Name Dates Details Patient Instructions Indication:Non-smoker Start:12-Jun-2022 Instruction Type:Provider Instructions for Treatment How to Access Health Informa tion Online using Patient Portal and 3rd [employer] Apps Indication:Non-smoker Start:12-Jun-2022 Instruction Type:Patient Education Patient Instructions Indication:BMI 26.0-26.9,adult Start:10-Dec-2021 Instruction Type:Provider Instructions for Treatment How to Access Health Informa tion Online using Patient Portal and 3rd [employer] Apps Indication:BMI 26.0-26.9,adult Start:10-Dec-2021 Instruction Type:Patient Education Patient Instructions Indication:Hyperglycemia Start:07-Jun-2021 Instruction Type:Provider Instructions for Treatment How to Access Health Informa tion Online using Patient Portal and 3rd [employer] Apps Indication:Hyperglycemia Start:07-Jun-2021 Instruction Type:Patient Education cardiovascular counseling Indication:Coronary artery disease Start:06-Dec-2020 Instruction Type:Provider Instructions for Treatment Patient Instructions Indication:BMI 26.0-26.9,adult Start:06-Dec-2020 Instruction Type:Provider Instructions for Treatment How to Access Health Informa tion Online using Patient Portal and 3rd [employer] Apps Indication:BMI 26.0-26.9,adult Start:06-Dec-2020 Instruction Type:Patient Education Patient Instructions Indication:Non-smoker Start:05-Jun-2020 Instruction Type:Provider Instructions for Treatment How to Access Health Informa tion Online using Patient Portal and 3rd [employer] Apps Indication:Non-smoker Start:05-Jun-2020 Instruction Type:Patient Education How to access health informa tion online Indication:BMI 26.0-26.9,adult Start:06-Dec-2019 Instruction Type:Patient Education How to access health informa tion online - Detail Indication:BMI 26.0-26.9,adult Start:06-Dec-2019 Instruction Type:Patient Education Patient Instructions Indication:BMI 26.0-26.9,adult Start:06-Dec-2019 Instruction Type:Provider Instructions for Treatment cardiovascular counseling Indication:Coronary artery disease Start:04-Oct-2019 Instruction Type:Provider Instructions for Treatment How to access health informa tion online Indication:BMI 26.0-26.9,adult Start:04-Oct-2019 Instruction Type:Patient Education How to access health informa tion online - Detail Indication:BMI 26.0-26.9,adult Start:04-Oct-2019 Instruction Type:Patient Education Patient Instructions Indication:BMI 26.0-26.9,adult Start:04-Oct-2019 Instruction Type:Provider Instructions for Treatment How to access health informa tion online - Detail Indication:Non-smoker Start:13-Sep-2019 Instruction Type:Patient Education How to access health informa tion online Indication:Non-smoker Start:13-Sep-2019 Instruction Type:Patient Education Patient Instructions Indication:Non-smoker Start:13-Sep-2019 Instruction Type:Provider Instructions for Treatment How to access health informa tion online Indication:BMI 27.0-27.9,adult Start:03-Mar-2019 Instruction Type:Patient Education How to access health informa tion online - Detail Indication:BMI 27.0-27.9,adult Start:03-Mar-2019 Instruction Type:Patient Education Patient Instructions Indication:BMI 27.0-27.9,adult Start:03-Mar-2019 Instruction Type:Provider Instructions for Treatment How to access health informa tion online Indication:BMI 27.0-27.9,adult Start:15-Feb-2019 Instruction Type:Patient Education How to access health informa tion online - Detail Indication:BMI 27.0-27.9,adult Start:15-Feb-2019 Instruction Type:Patient Education Patient Instructions Indication:BMI 27.0-27.9,adult Start:15-Feb-2019 Instruction Type:Provider Instructions for Treatment How to access health informa tion online Indication:BMI 26.0-26.9,adult Start:20-Jan-2019 Instruction Type:Patient Education Patient Instructions Indication:BMI 26.0-26.9,adult Start:20-Jan-2019 Instruction Type:Provider Instructions for Treatment How to access health informa tion online Indication:Non-smoker Start:15-Oct-2018 Instruction Type:Patient Education How to access health informa tion online - Detail Indication:Non-smoker Start:15-Oct-2018 Instruction Type:Patient Education Patient Instructions Indication:Non-smoker Start:15-Oct-2018 Instruction Type:Provider Instructions for Treatment How to access health informa tion online Indication:Non-smoker Start:29-Apr-2018 Instruction Type:Patient Education How to access health informa tion online - Detail Indication:Non-smoker Start:29-Apr-2018 Instruction Type:Patient Education Patient Instructions Indication:Non-smoker Start:29-Apr-2018 Instruction Type:Provider Instructions for Treatment How to access health informa tion online Indication:Non-smoker Start:23-Apr-2018 Instruction Type:Patient Education How to access health informa tion online - Detail Indication:Non-smoker Start:23-Apr-2018 Instruction Type:Patient Education Patient Instructions Indication:Cough Start:23-Apr-2018 Instruction Type:Provider Instructions for Treatment How to access health informa tion online Indication:Non-smoker Start:05-Jan-2018 Instruction Type:Patient Education How to access health informa tion online - Detail Indication:Non-smoker Start:05-Jan-2018 Instruction Type:Patient Education Patient Instructions Indication:Sore throat Start:05-Jan-2018 Instruction Type:Provider Instructions for Treatment cardiovascular counseling Indication:Coronary artery disease Start:27-Nov-2017 Instruction Type:Provider Instructions for Treatment How to access health informa tion online Indication:Non-smoker Start:27-Nov-2017 Instruction Type:Patient Education How to access health informa tion online - Detail Indication:Non-smoker Start:27-Nov-2017 Instruction Type:Patient Education Patient Instructions Indication:Non-smoker Start:27-Nov-2017 Instruction Type:Provider Instructions for Treatment How to access health informa tion online Indication:BMI 28.0-28.9,adult Start:17-Apr-2017 Instruction Type:Patient Education How to access health informa tion online - Detail Indication:BMI 28.0-28.9,adult Start:17-Apr-2017 Instruction Type:Patient Education Patient Instructions Indication:BMI 28.0-28.9,adult Start:17-Apr-2017 Instruction Type:Provider Instructions for Treatment cardiovascular counseling Indication:Coronary artery disease Start:20-Nov-2016 Instruction Type:Provider Instructions for Treatment How to access health informa tion online Indication:BMI 27.0-27.9,adult Start:20-Nov-2016 Instruction Type:Patient Education How to access health informa tion online - Detail Indication:BMI 27.0-27.9,adult Start:20-Nov-2016 Instruction Type:Patient Education Patient Instructions Indication:BMI 27.0-27.9,adult Start:20-Nov-2016 Instruction Type:Provider Instructions for Treatment Patient Instructions Indication:Encounter for screening for malignant neoplasm of prostate (Renamed from Screening for prostate cancer) Start:14-Oct-2016 Instruction Type:Provider Instructions for Treatment How to access health informa tion online - Detail Indication:Non-smoker Start:08-Aug-2016 Instruction Type:Patient Education Patient Instructions Indication:Non-smoker Start:08-Aug-2016 Instruction Type:Provider Instructions for Treatment Patient Instructions Indication:Annual Medicare Phyiscal WITHOUT abnormal findings (Renamed from Encounter for general adult medical examination without abnormal findings) Start:13-Nov-2015 Instruction Type:Provider Instructions for Treatment Patient Instructions Indication:Bee sting reaction, accidental or unintentional, initial encounter Start:08-Nov-2015 Instruction Type:Provider Instructions for Treatment How to access health informa tion online Indication:Bee sting reaction, accidental or unintentional, initial encounter Start:17-Aug-2015 Instruction Type:Patient Education How to access health informa tion online - Detail Indication:Bee sting reaction, accidental or unintentional, initial encounter Start:17-Aug-2015 Instruction Type:Patient Education Patient Instructions Indication:Bee sting reaction, accidental or unintentional, initial encounter Start:17-Aug-2015 Instruction Type:Provider Instructions for Treatment How to access health informa [employer] online Indication:Coronary artery disease Start:07-Nov-2014 Instruction Type:Patient Education How to access health informa tion online - Detail Indication:Coronary artery disease Start:07-Nov-2014 Instruction Type:Patient Education Patient Instructions Indication:Coronary artery disease Start:07-Nov-2014 Instruction Type:Provider Instructions for Treatment Patient Instructions Indication:Hypothyroidism Start:11-Aug-2013 Instruction Type:Provider Instructions for Treatment Patient Instructions Indication:Hypothyroidism Start:21-Apr-2013 Instruction Type:Provider Instructions for Treatment Patient Instructions Indication:Hypercholesterolemia Start:02-Sep-2012 Instruction Type:Provider Instructions for Treatment Patient Instructions Indication:Hypothyroidism Start:02-Jun-2012 Instruction Type:Provider Instructions for Treatment [facility] Work Phone: reason for referral (narrative)* Outpatient Procedure (Routine) - Authorized Specialty Diagnoses / Procedures Referred By Contac t Referred To Contact [facility] Diagnoses Nonrheumatic mitral valve regurgitation Procedures ECHO ECHO TTHRC R-T 2D W/WOM-MODE COMPL SPEC&COLR D Amber Ta APRN.CNP [address] [place] [address] [facility] [place] [address] [place] [address] Referral ID Status Reason Start Date Expiration Date Visits Requested Visits Authorized [id number] Authorized Auto-Generat ed Referral 08/10/2021 08/10/2022 1 1 * Outpatient Procedure (Routine) - Authorized Specialty Diagnoses / Procedures Referred By Contac t Referred To Contact [facility] Diagnoses Nonrheumatic mitral valve regurgitation Procedures ECG COMPLETE ECG ROUTINE ECG W/LEAST 12 LDS W/I&R Amber Ta APRN.CNP [address] [place] [address] [facility] [place] [address] [place] [address] Referral ID Status Reason Start Date Expiration Date Visits Requested Visits Authorized [id number] Authorized Auto-Generat ed Referral 08/10/2021 08/10/2022 1 [facility]No reason for referral information availableWK[facility] Work Phone: Reason for visit Narrative* Outpatient Procedure (Routine) - Closed Specialty Diagnoses / Procedures Referred By Contac t Referred To Contact [facility] Diagnoses Shortness of breath Nonrheumatic mitral valve regurgitation Chronic diastolic heart failure (HCC) Procedures ECHO TRANSESOPHAGEAL ECHO TRANSESOPHAG R-T 2D W/PRB IMG ACQUJOLENE I&R Amber Guillermo APRN.CNP [address] [place] [address] [facility] [place] [address] [place] [address] Referral ID Status Reason Start Date Expiration Date V isits Requested Visits Authorized [id number] Closed Auto-Generate d Referral 05/08/2021 05/08/2022 1 1 [facility] Family History No Family History Records FoundUnknown Family Member Name Dates Details Brother 1 Comments:Triple bypass, [place], HTN, Glaucoma Status:Active Father Comments:, Huntingto n's chorea Status:Active First Degree Relatives Comments:Colon polyps Status:Active Mother Comments: [place] at 60 Status:Active Sister 1 Comments:Older, HTN & [place] Status:Active Unknown Family Member Name Dates Details Brother 1 Comments:Triple bypass, [place], HTN, Glaucoma Status:Active Father Comments:, Huntingto n's chorea Status:Active First Degree Relatives Comments:Colon polyps Status:Active Mother Comments: [place] at 60 Status:Active Sister 1 Comments:Older, [place]N & [place] Status:Active Unknown Family Member Name Dates Details Brother 1 Comments:Triple bypass, [place], HTN, Glaucoma Status:Active Father Comments:, Huntingto n's chorea Status:Active First Degree Relatives Comments:Colon polyps Status:Active Mother Comments: [place] at 60 Status:Active Sister 1 Comments:Older, [place]N & [place] Status:Active Unknown Family Member Name Dates Details Brother 1 Comments:Triple bypass, [place], HTN, Glaucoma Status:Active Father Comments:, Huntingto n's chorea Status:Active First Degree Relatives Comments:Colon polyps Status:Active Mother Comments: [place] at 60 Status:Active Sister 1 Comments:Older, [place] & [place] Status:Active Unknown Family Member Name Dates Details Brother 1 Comments:Triple bypass, [place], HTN, Glaucoma Status:Active Father Comments:, Huntingto n's chorea Status:Active First Degree Relatives Comments:Colon polyps Status:Active Mother Comments: [place] at 60 Status:Active Sister 1 Comments:Older, [place] & [place] Status:Active Unknown Family Member Name Dates Details Brother 1 Comments:Triple bypass, [place], HTN, Glaucoma Status:Active Father Comments:, Huntingto n's chorea Status:Active First Degree Relatives Comments:Colon polyps Status:Active Mother Comments: [place] at 60 Status:Active Sister 1 Comments:Older, [place] & [place] Status:Active Unknown Family Member Name Dates Details Brother 1 Comments:Triple bypass, [place], HTN, Glaucoma Status:Active Father Comments:, Huntingto n's chorea Status:Active First Degree Relatives Comments:Colon polyps Status:Active Mother Comments: [place] at 60 Status:Active Sister 1 Comments:Older, [place] & [place] Status:Active Unknown Family Member Name Dates Details Brother 1 Comments:Triple bypass, [place], HTN, Glaucoma Status:Active Father Comments:, Huntingto n's chorea Status:Active First Degree Relatives Comments:Colon polyps Status:Active Mother Comments: [place] at 60 Status:Active Sister 1 Comments:Older, [place] & [place] Status:Active Unknown Family Member Name Dates Details Brother 1 Comments:Triple bypass, [place], HTN, Glaucoma Status:Active Father Comments:, Huntingto n's chorea Status:Active First Degree Relatives Comments:Colon polyps Status:Active Mother Comments: [place] at 60 Status:Active Sister 1 Comments:Older, [place]N & [place] Status:Active Unknown Family Member Name Dates Details Brother 1 Comments:Triple bypass, [place], HTN, Glaucoma Status:Active Father Comments:, Huntingto n's chorea Status:Active First Degree Relatives Comments:Colon polyps Status:Active Mother Comments: [place] at 60 Status:Active Sister 1 Comments:Older, [place]N & [place] Status:Active Unknown Family Member Name Dates Details Brother 1 Comments:Triple bypass, [place], HTN, Glaucoma Status:Active Father Comments:, Huntingto n's chorea Status:Active First Degree Relatives Comments:Colon polyps Status:Active Mother Comments: [place] at 60 Status:Active Sister 1 Comments:Older, [place]N & [place] Status:Active Unknown Family Member Name Dates Details Brother 1 Comments:Triple bypass, [place], HTN, Glaucoma Status:Active Father Comments:, Huntingto n's chorea Status:Active First Degree Relatives Comments:Colon polyps Status:Active Mother Comments: [place] at 60 Status:Active Sister 1 Comments:Older, [place]N & [place] Status:Active Unknown Family Member Name Dates Details Brother 1 Comments:Triple bypass, [place], HTN, Glaucoma Status:Active Father Comments:, Huntingto n's chorea Status:Active First Degree Relatives Comments:Colon polyps Status:Active Mother Comments: [place] at 60 Status:Active Sister 1 Comments:Older, [place] & [place] Status:Active Unknown Family Member Name Dates Details Brother 1 Comments:Triple bypass, [place], HTN, Glaucoma Status:Active Father Comments:, Huntingto n's chorea Status:Active First Degree Relatives Comments:Colon polyps Status:Active Mother Comments: [place] at 60 Status:Active Sister 1 Comments:Older, [place] & [place] Status:Active Unknown Family Member Name Dates Details Brother 1 Comments:Triple bypass, [place], HTN, Glaucoma Status:Active Father Comments:, Huntingto n's chorea Status:Active First Degree Relatives Comments:Colon polyps Status:Active Mother Comments: [place] at 60 Status:Active Sister 1 Comments:Older, [place] & [place] Status:Active Unknown Family Member Name Dates Details Brother 1 Comments:Triple bypass, [place], HTN, Glaucoma Status:Active Father Comments:, Huntingto n's chorea Status:Active First Degree Relatives Comments:Colon polyps Status:Active Mother Comments: [place] at 60 Status:Active Sister 1 Comments:Older, [place] & [place] Status:Active Unknown Family Member Name Dates Details Brother 1 Comments:Triple bypass, [place], HTN, Glaucoma Status:Active Father Comments:, Huntingto n's chorea Status:Active First Degree Relatives Comments:Colon polyps Status:Active Mother Comments: [place] at 60 Status:Active Sister 1 Comments:Older, [place] & [place] Status:Active Unknown Family Member Name Dates Details Brother 1 Comments:Triple bypass, [place], HTN, Glaucoma Status:Active Father Comments:, Huntingto n's chorea Status:Active First Degree Relatives Comments:Colon polyps Status:Active Mother Comments: [place] at 60 Status:Active Sister 1 Comments:Older, [place]N & [place] Status:Active Relationship Condition Age at Onset Recorded Date/T joshua father Burleson's disease Unknown mother Coronary artery disease Unknown Myocardial infarction Unknown brother Coronary artery disease Unknown Unknown Presence of stent in coronary artery Unkn own Diabetes mellitus Unknown sister Coronary artery disease Unknown Hypertension Unknown Unknown Family Member Name Dates Details Brother 1 Comments:Triple bypass, [place], HTN, Glaucoma Status:Active Father Comments:, Huntingto n's chorea Status:Active First Degree Relatives Comments:Colon polyps Status:Active Mother Comments: [place] at 60 Status:Active Sister 1 Comments:Older, [place] & [place] Status:Active Unknown Family Member Name Dates Details Brother 1 Comments:Triple bypass, [place], HTN, Glaucoma Status:Active Father Comments:, Huntingto n's chorea Status:Active First Degree Relatives Comments:Colon polyps Status:Active Mother Comments: [place] at 60 Status:Active Sister 1 Comments:Older, [place] & [place] Status:Active Unknown Family Member Name Dates Details Brother 1 Comments:Triple bypass, [place], HTN, Glaucoma Status:Active Father Comments:, Huntingto n's chorea Status:Active First Degree Relatives Comments:Colon polyps Status:Active Mother Comments: of [place] at 60 Status:Active Sister 1 Comments:Older, [place] & [place] Status:Active Unknown Family Member Name Dates Details Brother 1 Comments:Triple bypass, pros [place], HTN, Glaucoma Status:Active Father Comments:, Huntingto n's chorea Status:Active First Degree Relatives Comments:Colon polyps Status:Active Mother Comments: of [place] at 60 Status:Active Sister 1 Comments:Older, [place] & [place] Status:Active Unknown Family Member Name Dates Details Brother 1 Comments:Triple bypass, [place], HTN, Glaucoma Status:Active Father Comments:, Huntingto n's chorea Status:Active First Degree Relatives Comments:Colon polyps Status:Active Mother Comments: of [place] at 60 Status:Active Sister 1 Comments:Older, HT[place] & [place] Status:Active Unknown Family Member Name Dates Details Brother 1 Comments:Triple bypass, [place], HT[place], Glaucoma Status:Active Father Comments:, Huntingto n's chorea Status:Active First Degree Relatives Comments:Colon polyps Status:Active Mother Comments: of [place] at 60 Status:Active Sister 1 Comments:Older, HT[place] & [place] Status:Active Unknown Family Member Name Dates Details Brother 1 Comments:Triple bypass, [place], HT[place], Glaucoma Status:Active Father Comments:, Huntingto n's chorea Status:Active First Degree Relatives Comments:Colon polyps Status:Active Mother Comments: of [place] at 60 Status:Active Sister 1 Comments:Older, HT[place] & [place] Status:Active Unknown Family Member Name Dates Details Brother 1 Comments:Triple bypass, [place], HT[place], Glaucoma Status:Active Father Comments:, Huntingto n's chorea Status:Active First Degree Relatives Comments:Colon polyps Status:Active Mother Comments: of [place] at 60 Status:Active Sister 1 Comments:Older, HT[place] & [place] Status:Active Unknown Family Member Name Dates Details Brother 1 Comments:Triple bypass, [place], HT[place], Glaucoma Status:Active Father Comments:, Huntingto n's chorea Status:Active First Degree Relatives Comments:Colon polyps Status:Active Mother Comments: of [place] at 60 Status:Active Sister 1 Comments:Older, HT[place] & [place] Status:Active Unknown Family Member Name Dates Details Brother 1 Comments:Triple bypass, [place], HT[place], Glaucoma Status:Active Father Comments:, Huntingto n's chorea Status:Active First Degree Relatives Comments:Colon polyps Status:Active Mother Comments: of [place] at 60 Status:Active Sister 1 Comments:Older, [place] & [place] Status:Active Instructions Name Dates Details Non-smoker : How to access h ealth information online Indication:Non-smoker Non-smoker : How to access h ealth information online - Detail Indication:Non-smoker Cough : Patient Instructions Indication:Cough Sore throat : Patient Instru ctions Indication:Sore throat Coronary artery disease : ca rdiovascular counseling Indication:Coronary artery disease Non-smoker : Patient Instruc tions Indication:Non-smoker BMI 28.0-28.9,adult : How to access health information online Indication:BMI 28.0-28.9,adult BMI 28.0-28.9,adult : How to access health information online - Detail Indication:BMI 28.0-28.9,adult BMI 28.0-28.9,adult : Patien t Instructions Indication:BMI 28.0-28.9,adult BMI 27.0-27.9,adult : How to access health information online Indication:BMI 27.0-27.9,adult BMI 27.0-27.9,adult : How to access health information online - Detail Indication:BMI 27.0-27.9,adult BMI 27.0-27.9,adult : Patien t Instructions Indication:BMI 27.0-27.9,adult Encounter for screening for malignant neoplasm of prostate (Renamed from Screening for prostate cancer) : Patient Instructions Indication:Encounter for screening for malignant neoplasm of prostate (Renamed from Screening for prostate cancer) Annual Medicare Phyiscal WIT HOUT abnormal findings (Renamed from Encounter for general adult medical examination without abnormal findings) : Patient Instructions Indication:Annual Medicare Phyiscal WITHOUT abnormal findings (Renamed from Encounter for general adult medical examination without abnormal findings) Bee sting reaction, accident al or unintentional, initial encounter : Patient Instructions Indication:Bee sting reaction, accidental or unintentional, initial encounter Bee sting reaction, accident al or unintentional, initial encounter : How to access health information online Indication:Bee sting reaction, accidental or unintentional, initial encounter Bee sting reaction, accident al or unintentional, initial encounter : How to access health information online - Detail Indication:Bee sting reaction, accidental or unintentional, initial encounter Coronary artery disease : Ho w to access health information online Indication:Coronary artery disease Coronary artery disease : Ho w to access health information online - Detail Indication:Coronary artery disease Coronary artery disease : Danika sweetnt Instructions Indication:Coronary artery disease Hypothyroidism : Patient Ins tructions Indication:Hypothyroidism Hypercholesterolemia : Patie nt Instructions Indication:Hypercholesterolemia Name Dates Details Non-smoker : How to access h ealth information online Indication:Non-smoker Non-smoker : How to access h ealth information online - Detail Indication:Non-smoker Cough : Patient Instructions Indication:Cough Sore throat : Patient Instru ctions Indication:Sore throat Coronary artery disease : ca rdiovascular counseling Indication:Coronary artery disease Non-smoker : Patient Instruc tions Indication:Non-smoker BMI 28.0-28.9,adult : How to access health information online Indication:BMI 28.0-28.9,adult BMI 28.0-28.9,adult : How to access health information online - Detail Indication:BMI 28.0-28.9,adult BMI 28.0-28.9,adult : Patien t Instructions Indication:BMI 28.0-28.9,adult BMI 27.0-27.9,adult : How to access health information online Indication:BMI 27.0-27.9,adult BMI 27.0-27.9,adult : How to access health information online - Detail Indication:BMI 27.0-27.9,adult BMI 27.0-27.9,adult : Patien t Instructions Indication:BMI 27.0-27.9,adult Encounter for screening for malignant neoplasm of prostate (Renamed from Screening for prostate cancer) : Patient Instructions Indication:Encounter for screening for malignant neoplasm of prostate (Renamed from Screening for prostate cancer) Annual Medicare Phyiscal WIT HOUT abnormal findings (Renamed from Encounter for general adult medical examination without abnormal findings) : Patient Instructions Indication:Annual Medicare Phyiscal WITHOUT abnormal findings (Renamed from Encounter for general adult medical examination without abnormal findings) Bee sting reaction, accident al or unintentional, initial encounter : Patient Instructions Indication:Bee sting reaction, accidental or unintentional, initial encounter Bee sting reaction, accident al or unintentional, initial encounter : How to access health information online Indication:Bee sting reaction, accidental or unintentional, initial encounter Bee sting reaction, accident al or unintentional, initial encounter : How to access health information online - Detail Indication:Bee sting reaction, accidental or unintentional, initial encounter Coronary artery disease : Ho w to access health information online Indication:Coronary artery disease Coronary artery disease : Ho w to access health information online - Detail Indication:Coronary artery disease Coronary artery disease : Danika monsivais Instructions Indication:Coronary artery disease Hypothyroidism : Patient Ins tructions Indication:Hypothyroidism Hypercholesterolemia : Patie nt Instructions Indication:Hypercholesterolemia Name Dates Details How to access health informa tion online Indication:Non-smoker Start:29-Apr-2018 Instruction Type:Patient Education How to access health informa tion online - Detail Indication:Non-smoker Start:29-Apr-2018 Instruction Type:Patient Education Patient Instructions Indication:Non-smoker Start:29-Apr-2018 Instruction Type:Provider Instructions for Treatment How to access health informa tion online Indication:Non-smoker Start:23-Apr-2018 Instruction Type:Patient Education How to access health informa tion online - Detail Indication:Non-smoker Start:23-Apr-2018 Instruction Type:Patient Education Patient Instructions Indication:Cough Start:23-Apr-2018 Instruction Type:Provider Instructions for Treatment How to access health informa tion online Indication:Non-smoker Start:05-Jan-2018 Instruction Type:Patient Education How to access health informa tion online - Detail Indication:Non-smoker Start:05-Jan-2018 Instruction Type:Patient Education Patient Instructions Indication:Sore throat Start:05-Jan-2018 Instruction Type:Provider Instructions for Treatment cardiovascular counseling Indication:Coronary artery disease Start:27-Nov-2017 Instruction Type:Provider Instructions for Treatment How to access health informa tion online Indication:Non-smoker Start:27-Nov-2017 Instruction Type:Patient Education How to access health informa tion online - Detail Indication:Non-smoker Start:27-Nov-2017 Instruction Type:Patient Education Patient Instructions Indication:Non-smoker Start:27-Nov-2017 Instruction Type:Provider Instructions for Treatment How to access health informa tion online Indication:BMI 28.0-28.9,adult Start:17-Apr-2017 Instruction Type:Patient Education How to access health informa tion online - Detail Indication:BMI 28.0-28.9,adult Start:17-Apr-2017 Instruction Type:Patient Education Patient Instructions Indication:BMI 28.0-28.9,adult Start:17-Apr-2017 Instruction Type:Provider Instructions for Treatment cardiovascular counseling Indication:Coronary artery disease Start:20-Nov-2016 Instruction Type:Provider Instructions for Treatment How to access health informa tion online Indication:BMI 27.0-27.9,adult Start:20-Nov-2016 Instruction Type:Patient Education How to access health informa tion online - Detail Indication:BMI 27.0-27.9,adult Start:20-Nov-2016 Instruction Type:Patient Education Patient Instructions Indication:BMI 27.0-27.9,adult Start:20-Nov-2016 Instruction Type:Provider Instructions for Treatment Patient Instructions Indication:Encounter for screening for malignant neoplasm of prostate (Renamed from Screening for prostate cancer) Start:14-Oct-2016 Instruction Type:Provider Instructions for Treatment How to access health informa tion online - Detail Indication:Non-smoker Start:08-Aug-2016 Instruction Type:Patient Education Patient Instructions Indication:Non-smoker Start:08-Aug-2016 Instruction Type:Provider Instructions for Treatment Patient Instructions Indication:Annual Medicare Phyiscal WITHOUT abnormal findings (Renamed from Encounter for general adult medical examination without abnormal findings) Start:13-Nov-2015 Instruction Type:Provider Instructions for Treatment Patient Instructions Indication:Bee sting reaction, accidental or unintentional, initial encounter Start:08-Nov-2015 Instruction Type:Provider Instructions for Treatment How to access health informa tion online Indication:Bee sting reaction, accidental or unintentional, initial encounter Start:17-Aug-2015 Instruction Type:Patient Education How to access health informa tion online - Detail Indication:Bee sting reaction, accidental or unintentional, initial encounter Start:17-Aug-2015 Instruction Type:Patient Education Patient Instructions Indication:Bee sting reaction, accidental or unintentional, initial encounter Start:17-Aug-2015 Instruction Type:Provider Instructions for Treatment How to access health informa tion online Indication:Coronary artery disease Start:07-Nov-2014 Instruction Type:Patient Education How to access health informa tion online - Detail Indication:Coronary artery disease Start:07-Nov-2014 Instruction Type:Patient Education Patient Instructions Indication:Coronary artery disease Start:07-Nov-2014 Instruction Type:Provider Instructions for Treatment Patient Instructions Indication:Hypothyroidism Start:11-Aug-2013 Instruction Type:Provider Instructions for Treatment Patient Instructions Indication:Hypothyroidism Start:21-Apr-2013 Instruction Type:Provider Instructions for Treatment Patient Instructions Indication:Hypercholesterolemia Start:02-Sep-2012 Instruction Type:Provider Instructions for Treatment Patient Instructions Indication:Hypothyroidism Start:02-Jun-2012 Instruction Type:Provider Instructions for Treatment Name Dates Details How to access health informa tion online Indication:Non-smoker Start:15-Oct-2018 Instruction Type:Patient Education How to access health informa tion online - Detail Indication:Non-smoker Start:15-Oct-2018 Instruction Type:Patient Education Patient Instructions Indication:Non-smoker Start:15-Oct-2018 Instruction Type:Provider Instructions for Treatment How to access health informa tion online Indication:Non-smoker Start:29-Apr-2018 Instruction Type:Patient Education How to access health informa tion online - Detail Indication:Non-smoker Start:29-Apr-2018 Instruction Type:Patient Education Patient Instructions Indication:Non-smoker Start:29-Apr-2018 Instruction Type:Provider Instructions for Treatment How to access health informa tion online Indication:Non-smoker Start:23-Apr-2018 Instruction Type:Patient Education How to access health informa tion online - Detail Indication:Non-smoker Start:23-Apr-2018 Instruction Type:Patient Education Patient Instructions Indication:Cough Start:23-Apr-2018 Instruction Type:Provider Instructions for Treatment How to access health informa tion online Indication:Non-smoker Start:05-Jan-2018 Instruction Type:Patient Education How to access health informa tion online - Detail Indication:Non-smoker Start:05-Jan-2018 Instruction Type:Patient Education Patient Instructions Indication:Sore throat Start:05-Jan-2018 Instruction Type:Provider Instructions for Treatment cardiovascular counseling Indication:Coronary artery disease Start:27-Nov-2017 Instruction Type:Provider Instructions for Treatment How to access health informa tion online Indication:Non-smoker Start:27-Nov-2017 Instruction Type:Patient Education How to access health informa tion online - Detail Indication:Non-smoker Start:27-Nov-2017 Instruction Type:Patient Education Patient Instructions Indication:Non-smoker Start:27-Nov-2017 Instruction Type:Provider Instructions for Treatment How to access health informa tion online Indication:BMI 28.0-28.9,adult Start:17-Apr-2017 Instruction Type:Patient Education How to access health informa tion online - Detail Indication:BMI 28.0-28.9,adult Start:17-Apr-2017 Instruction Type:Patient Education Patient Instructions Indication:BMI 28.0-28.9,adult Start:17-Apr-2017 Instruction Type:Provider Instructions for Treatment cardiovascular counseling Indication:Coronary artery disease Start:20-Nov-2016 Instruction Type:Provider Instructions for Treatment How to access health informa tion online Indication:BMI 27.0-27.9,adult Start:20-Nov-2016 Instruction Type:Patient Education How to access health informa tion online - Detail Indication:BMI 27.0-27.9,adult Start:20-Nov-2016 Instruction Type:Patient Education Patient Instructions Indication:BMI 27.0-27.9,adult Start:20-Nov-2016 Instruction Type:Provider Instructions for Treatment Patient Instructions Indication:Encounter for screening for malignant neoplasm of prostate (Renamed from Screening for prostate cancer) Start:14-Oct-2016 Instruction Type:Provider Instructions for Treatment How to access health informa tion online - Detail Indication:Non-smoker Start:08-Aug-2016 Instruction Type:Patient Education Patient Instructions Indication:Non-smoker Start:08-Aug-2016 Instruction Type:Provider Instructions for Treatment Patient Instructions Indication:Annual Medicare Phyiscal WITHOUT abnormal findings (Renamed from Encounter for general adult medical examination without abnormal findings) Start:13-Nov-2015 Instruction Type:Provider Instructions for Treatment Patient Instructions Indication:Bee sting reaction, accidental or unintentional, initial encounter Start:08-Nov-2015 Instruction Type:Provider Instructions for Treatment How to access health informa tion online Indication:Bee sting reaction, accidental or unintentional, initial encounter Start:17-Aug-2015 Instruction Type:Patient Education How to access health informa tion online - Detail Indication:Bee sting reaction, accidental or unintentional, initial encounter Start:17-Aug-2015 Instruction Type:Patient Education Patient Instructions Indication:Bee sting reaction, accidental or unintentional, initial encounter Start:17-Aug-2015 Instruction Type:Provider Instructions for Treatment How to access health informa tion online Indication:Coronary artery disease Start:07-Nov-2014 Instruction Type:Patient Education How to access health informa tion online - Detail Indication:Coronary artery disease Start:07-Nov-2014 Instruction Type:Patient Education Patient Instructions Indication:Coronary artery disease Start:07-Nov-2014 Instruction Type:Provider Instructions for Treatment Patient Instructions Indication:Hypothyroidism Start:11-Aug-2013 Instruction Type:Provider Instructions for Treatment Patient Instructions Indication:Hypothyroidism Start:21-Apr-2013 Instruction Type:Provider Instructions for Treatment Patient Instructions Indication:Hypercholesterolemia Start:02-Sep-2012 Instruction Type:Provider Instructions for Treatment Patient Instructions Indication:Hypothyroidism Start:02-Jun-2012 Instruction Type:Provider Instructions for Treatment Name Dates Details How to access health informa tion online Indication:Non-smoker Start:15-Oct-2018 Instruction Type:Patient Education How to access health informa tion online - Detail Indication:Non-smoker Start:15-Oct-2018 Instruction Type:Patient Education Patient Instructions Indication:Non-smoker Start:15-Oct-2018 Instruction Type:Provider Instructions for Treatment How to access health informa tion online Indication:Non-smoker Start:29-Apr-2018 Instruction Type:Patient Education How to access health informa tion online - Detail Indication:Non-smoker Start:29-Apr-2018 Instruction Type:Patient Education Patient Instructions Indication:Non-smoker Start:29-Apr-2018 Instruction Type:Provider Instructions for Treatment How to access health informa tion online Indication:Non-smoker Start:23-Apr-2018 Instruction Type:Patient Education How to access health informa tion online - Detail Indication:Non-smoker Start:23-Apr-2018 Instruction Type:Patient Education Patient Instructions Indication:Cough Start:23-Apr-2018 Instruction Type:Provider Instructions for Treatment How to access health informa tion online Indication:Non-smoker Start:05-Jan-2018 Instruction Type:Patient Education How to access health informa tion online - Detail Indication:Non-smoker Start:05-Jan-2018 Instruction Type:Patient Education Patient Instructions Indication:Sore throat Start:05-Jan-2018 Instruction Type:Provider Instructions for Treatment cardiovascular counseling Indication:Coronary artery disease Start:27-Nov-2017 Instruction Type:Provider Instructions for Treatment How to access health informa tion online Indication:Non-smoker Start:27-Nov-2017 Instruction Type:Patient Education How to access health informa tion online - Detail Indication:Non-smoker Start:27-Nov-2017 Instruction Type:Patient Education Patient Instructions Indication:Non-smoker Start:27-Nov-2017 Instruction Type:Provider Instructions for Treatment How to access health informa tion online Indication:BMI 28.0-28.9,adult Start:17-Apr-2017 Instruction Type:Patient Education How to access health informa tion online - Detail Indication:BMI 28.0-28.9,adult Start:17-Apr-2017 Instruction Type:Patient Education Patient Instructions Indication:BMI 28.0-28.9,adult Start:17-Apr-2017 Instruction Type:Provider Instructions for Treatment cardiovascular counseling Indication:Coronary artery disease Start:20-Nov-2016 Instruction Type:Provider Instructions for Treatment How to access health informa tion online Indication:BMI 27.0-27.9,adult Start:20-Nov-2016 Instruction Type:Patient Education How to access health informa tion online - Detail Indication:BMI 27.0-27.9,adult Start:20-Nov-2016 Instruction Type:Patient Education Patient Instructions Indication:BMI 27.0-27.9,adult Start:20-Nov-2016 Instruction Type:Provider Instructions for Treatment Patient Instructions Indication:Encounter for screening for malignant neoplasm of prostate (Renamed from Screening for prostate cancer) Start:14-Oct-2016 Instruction Type:Provider Instructions for Treatment How to access health informa tion online - Detail Indication:Non-smoker Start:08-Aug-2016 Instruction Type:Patient Education Patient Instructions Indication:Non-smoker Start:08-Aug-2016 Instruction Type:Provider Instructions for Treatment Patient Instructions Indication:Annual Medicare Phyiscal WITHOUT abnormal findings (Renamed from Encounter for general adult medical examination without abnormal findings) Start:13-Nov-2015 Instruction Type:Provider Instructions for Treatment Patient Instructions Indication:Bee sting reaction, accidental or unintentional, initial encounter Start:08-Nov-2015 Instruction Type:Provider Instructions for Treatment How to access health informa tion online Indication:Bee sting reaction, accidental or unintentional, initial encounter Start:17-Aug-2015 Instruction Type:Patient Education How to access health informa tion online - Detail Indication:Bee sting reaction, accidental or unintentional, initial encounter Start:17-Aug-2015 Instruction Type:Patient Education Patient Instructions Indication:Bee sting reaction, accidental or unintentional, initial encounter Start:17-Aug-2015 Instruction Type:Provider Instructions for Treatment How to access health informa tion online Indication:Coronary artery disease Start:07-Nov-2014 Instruction Type:Patient Education How to access health informa tion online - Detail Indication:Coronary artery disease Start:07-Nov-2014 Instruction Type:Patient Education Patient Instructions Indication:Coronary artery disease Start:07-Nov-2014 Instruction Type:Provider Instructions for Treatment Patient Instructions Indication:Hypothyroidism Start:11-Aug-2013 Instruction Type:Provider Instructions for Treatment Patient Instructions Indication:Hypothyroidism Start:21-Apr-2013 Instruction Type:Provider Instructions for Treatment Patient Instructions Indication:Hypercholesterolemia Start:02-Sep-2012 Instruction Type:Provider Instructions for Treatment Patient Instructions Indication:Hypothyroidism Start:02-Jun-2012 Instruction Type:Provider Instructions for Treatment Name Dates Details How to access health informa tion online - Detail Indication:Non-smoker Start:13-Sep-2019 Instruction Type:Patient Education How to access health informa tion online Indication:Non-smoker Start:13-Sep-2019 Instruction Type:Patient Education Patient Instructions Indication:Non-smoker Start:13-Sep-2019 Instruction Type:Provider Instructions for Treatment How to access health informa tion online Indication:BMI 27.0-27.9,adult Start:03-Mar-2019 Instruction Type:Patient Education How to access health informa tion online - Detail Indication:BMI 27.0-27.9,adult Start:03-Mar-2019 Instruction Type:Patient Education Patient Instructions Indication:BMI 27.0-27.9,adult Start:03-Mar-2019 Instruction Type:Provider Instructions for Treatment How to access health informa tion online Indication:BMI 27.0-27.9,adult Start:15-Feb-2019 Instruction Type:Patient Education How to access health informa tion online - Detail Indication:BMI 27.0-27.9,adult Start:15-Feb-2019 Instruction Type:Patient Education Patient Instructions Indication:BMI 27.0-27.9,adult Start:15-Feb-2019 Instruction Type:Provider Instructions for Treatment How to access health informa tion online Indication:BMI 26.0-26.9,adult Start:20-Jan-2019 Instruction Type:Patient Education Patient Instructions Indication:BMI 26.0-26.9,adult Start:20-Jan-2019 Instruction Type:Provider Instructions for Treatment How to access health informa tion online Indication:Non-smoker Start:15-Oct-2018 Instruction Type:Patient Education How to access health informa tion online - Detail Indication:Non-smoker Start:15-Oct-2018 Instruction Type:Patient Education Patient Instructions Indication:Non-smoker Start:15-Oct-2018 Instruction Type:Provider Instructions for Treatment How to access health informa tion online Indication:Non-smoker Start:29-Apr-2018 Instruction Type:Patient Education How to access health informa tion online - Detail Indication:Non-smoker Start:29-Apr-2018 Instruction Type:Patient Education Patient Instructions Indication:Non-smoker Start:29-Apr-2018 Instruction Type:Provider Instructions for Treatment How to access health informa tion online Indication:Non-smoker Start:23-Apr-2018 Instruction Type:Patient Education How to access health informa tion online - Detail Indication:Non-smoker Start:23-Apr-2018 Instruction Type:Patient Education Patient Instructions Indication:Cough Start:23-Apr-2018 Instruction Type:Provider Instructions for Treatment How to access health informa tion online Indication:Non-smoker Start:05-Jan-2018 Instruction Type:Patient Education How to access health informa tion online - Detail Indication:Non-smoker Start:05-Jan-2018 Instruction Type:Patient Education Patient Instructions Indication:Sore throat Start:05-Jan-2018 Instruction Type:Provider Instructions for Treatment cardiovascular counseling Indication:Coronary artery disease Start:27-Nov-2017 Instruction Type:Provider Instructions for Treatment How to access health informa tion online Indication:Non-smoker Start:27-Nov-2017 Instruction Type:Patient Education How to access health informa tion online - Detail Indication:Non-smoker Start:27-Nov-2017 Instruction Type:Patient Education Patient Instructions Indication:Non-smoker Start:27-Nov-2017 Instruction Type:Provider Instructions for Treatment How to access health informa tion online Indication:BMI 28.0-28.9,adult Start:17-Apr-2017 Instruction Type:Patient Education How to access health informa tion online - Detail Indication:BMI 28.0-28.9,adult Start:17-Apr-2017 Instruction Type:Patient Education Patient Instructions Indication:BMI 28.0-28.9,adult Start:17-Apr-2017 Instruction Type:Provider Instructions for Treatment cardiovascular counseling Indication:Coronary artery disease Start:20-Nov-2016 Instruction Type:Provider Instructions for Treatment How to access health informa tion online Indication:BMI 27.0-27.9,adult Start:20-Nov-2016 Instruction Type:Patient Education How to access health informa tion online - Detail Indication:BMI 27.0-27.9,adult Start:20-Nov-2016 Instruction Type:Patient Education Patient Instructions Indication:BMI 27.0-27.9,adult Start:20-Nov-2016 Instruction Type:Provider Instructions for Treatment Patient Instructions Indication:Encounter for screening for malignant neoplasm of prostate (Renamed from Screening for prostate cancer) Start:14-Oct-2016 Instruction Type:Provider Instructions for Treatment How to access health informa tion online - Detail Indication:Non-smoker Start:08-Aug-2016 Instruction Type:Patient Education Patient Instructions Indication:Non-smoker Start:08-Aug-2016 Instruction Type:Provider Instructions for Treatment Patient Instructions Indication:Annual Medicare Phyiscal WITHOUT abnormal findings (Renamed from Encounter for general adult medical examination without abnormal findings) Start:13-Nov-2015 Instruction Type:Provider Instructions for Treatment Patient Instructions Indication:Bee sting reaction, accidental or unintentional, initial encounter Start:08-Nov-2015 Instruction Type:Provider Instructions for Treatment How to access health informa tion online Indication:Bee sting reaction, accidental or unintentional, initial encounter Start:17-Aug-2015 Instruction Type:Patient Education How to access health informa tion online - Detail Indication:Bee sting reaction, accidental or unintentional, initial encounter Start:17-Aug-2015 Instruction Type:Patient Education Patient Instructions Indication:Bee sting reaction, accidental or unintentional, initial encounter Start:17-Aug-2015 Instruction Type:Provider Instructions for Treatment How to access health informa tion online Indication:Coronary artery disease Start:07-Nov-2014 Instruction Type:Patient Education How to access health informa tion online - Detail Indication:Coronary artery disease Start:07-Nov-2014 Instruction Type:Patient Education Patient Instructions Indication:Coronary artery disease Start:07-Nov-2014 Instruction Type:Provider Instructions for Treatment Patient Instructions Indication:Hypothyroidism Start:11-Aug-2013 Instruction Type:Provider Instructions for Treatment Patient Instructions Indication:Hypothyroidism Start:21-Apr-2013 Instruction Type:Provider Instructions for Treatment Patient Instructions Indication:Hypercholesterolemia Start:02-Sep-2012 Instruction Type:Provider Instructions for Treatment Patient Instructions Indication:Hypothyroidism Start:02-Jun-2012 Instruction Type:Provider Instructions for Treatment Name Dates Details cardiovascular counseling Indication:Coronary artery disease Start:04-Oct-2019 Instruction Type:Provider Instructions for Treatment How to access health informa tion online Indication:BMI 26.0-26.9,adult Start:04-Oct-2019 Instruction Type:Patient Education How to access health informa tion online - Detail Indication:BMI 26.0-26.9,adult Start:04-Oct-2019 Instruction Type:Patient Education Patient Instructions Indication:BMI 26.0-26.9,adult Start:04-Oct-2019 Instruction Type:Provider Instructions for Treatment How to access health informa tion online - Detail Indication:Non-smoker Start:13-Sep-2019 Instruction Type:Patient Education How to access health informa tion online Indication:Non-smoker Start:13-Sep-2019 Instruction Type:Patient Education Patient Instructions Indication:Non-smoker Start:13-Sep-2019 Instruction Type:Provider Instructions for Treatment How to access health informa tion online Indication:BMI 27.0-27.9,adult Start:03-Mar-2019 Instruction Type:Patient Education How to access health informa tion online - Detail Indication:BMI 27.0-27.9,adult Start:03-Mar-2019 Instruction Type:Patient Education Patient Instructions Indication:BMI 27.0-27.9,adult Start:03-Mar-2019 Instruction Type:Provider Instructions for Treatment How to access health informa tion online Indication:BMI 27.0-27.9,adult Start:15-Feb-2019 Instruction Type:Patient Education How to access health informa tion online - Detail Indication:BMI 27.0-27.9,adult Start:15-Feb-2019 Instruction Type:Patient Education Patient Instructions Indication:BMI 27.0-27.9,adult Start:15-Feb-2019 Instruction Type:Provider Instructions for Treatment How to access health informa tion online Indication:BMI 26.0-26.9,adult Start:20-Jan-2019 Instruction Type:Patient Education Patient Instructions Indication:BMI 26.0-26.9,adult Start:20-Jan-2019 Instruction Type:Provider Instructions for Treatment How to access health informa tion online Indication:Non-smoker Start:15-Oct-2018 Instruction Type:Patient Education How to access health informa tion online - Detail Indication:Non-smoker Start:15-Oct-2018 Instruction Type:Patient Education Patient Instructions Indication:Non-smoker Start:15-Oct-2018 Instruction Type:Provider Instructions for Treatment How to access health informa tion online Indication:Non-smoker Start:29-Apr-2018 Instruction Type:Patient Education How to access health informa tion online - Detail Indication:Non-smoker Start:29-Apr-2018 Instruction Type:Patient Education Patient Instructions Indication:Non-smoker Start:29-Apr-2018 Instruction Type:Provider Instructions for Treatment How to access health informa tion online Indication:Non-smoker Start:23-Apr-2018 Instruction Type:Patient Education How to access health informa tion online - Detail Indication:Non-smoker Start:23-Apr-2018 Instruction Type:Patient Education Patient Instructions Indication:Cough Start:23-Apr-2018 Instruction Type:Provider Instructions for Treatment How to access health informa tion online Indication:Non-smoker Start:05-Jan-2018 Instruction Type:Patient Education How to access health informa tion online - Detail Indication:Non-smoker Start:05-Jan-2018 Instruction Type:Patient Education Patient Instructions Indication:Sore throat Start:05-Jan-2018 Instruction Type:Provider Instructions for Treatment cardiovascular counseling Indication:Coronary artery disease Start:27-Nov-2017 Instruction Type:Provider Instructions for Treatment How to access health informa tion online Indication:Non-smoker Start:27-Nov-2017 Instruction Type:Patient Education How to access health informa tion online - Detail Indication:Non-smoker Start:27-Nov-2017 Instruction Type:Patient Education Patient Instructions Indication:Non-smoker Start:27-Nov-2017 Instruction Type:Provider Instructions for Treatment How to access health informa tion online Indication:BMI 28.0-28.9,adult Start:17-Apr-2017 Instruction Type:Patient Education How to access health informa tion online - Detail Indication:BMI 28.0-28.9,adult Start:17-Apr-2017 Instruction Type:Patient Education Patient Instructions Indication:BMI 28.0-28.9,adult Start:17-Apr-2017 Instruction Type:Provider Instructions for Treatment cardiovascular counseling Indication:Coronary artery disease Start:20-Nov-2016 Instruction Type:Provider Instructions for Treatment How to access health informa tion online Indication:BMI 27.0-27.9,adult Start:20-Nov-2016 Instruction Type:Patient Education How to access health informa tion online - Detail Indication:BMI 27.0-27.9,adult Start:20-Nov-2016 Instruction Type:Patient Education Patient Instructions Indication:BMI 27.0-27.9,adult Start:20-Nov-2016 Instruction Type:Provider Instructions for Treatment Patient Instructions Indication:Encounter for screening for malignant neoplasm of prostate (Renamed from Screening for prostate cancer) Start:14-Oct-2016 Instruction Type:Provider Instructions for Treatment How to access health informa tion online - Detail Indication:Non-smoker Start:08-Aug-2016 Instruction Type:Patient Education Patient Instructions Indication:Non-smoker Start:08-Aug-2016 Instruction Type:Provider Instructions for Treatment Patient Instructions Indication:Annual Medicare Phyiscal WITHOUT abnormal findings (Renamed from Encounter for general adult medical examination without abnormal findings) Start:13-Nov-2015 Instruction Type:Provider Instructions for Treatment Patient Instructions Indication:Bee sting reaction, accidental or unintentional, initial encounter Start:08-Nov-2015 Instruction Type:Provider Instructions for Treatment How to access health informa tion online Indication:Bee sting reaction, accidental or unintentional, initial encounter Start:17-Aug-2015 Instruction Type:Patient Education How to access health informa tion online - Detail Indication:Bee sting reaction, accidental or unintentional, initial encounter Start:17-Aug-2015 Instruction Type:Patient Education Patient Instructions Indication:Bee sting reaction, accidental or unintentional, initial encounter Start:17-Aug-2015 Instruction Type:Provider Instructions for Treatment How to access health informa tion online Indication:Coronary artery disease Start:07-Nov-2014 Instruction Type:Patient Education How to access health informa tion online - Detail Indication:Coronary artery disease Start:07-Nov-2014 Instruction Type:Patient Education Patient Instructions Indication:Coronary artery disease Start:07-Nov-2014 Instruction Type:Provider Instructions for Treatment Patient Instructions Indication:Hypothyroidism Start:11-Aug-2013 Instruction Type:Provider Instructions for Treatment Patient Instructions Indication:Hypothyroidism Start:21-Apr-2013 Instruction Type:Provider Instructions for Treatment Patient Instructions Indication:Hypercholesterolemia Start:02-Sep-2012 Instruction Type:Provider Instructions for Treatment Patient Instructions Indication:Hypothyroidism Start:02-Jun-2012 Instruction Type:Provider Instructions for Treatment Name Dates Details cardiovascular counseling Indication:Coronary artery disease Start:04-Oct-2019 Instruction Type:Provider Instructions for Treatment How to access health informa tion online Indication:BMI 26.0-26.9,adult Start:04-Oct-2019 Instruction Type:Patient Education How to access health informa tion online - Detail Indication:BMI 26.0-26.9,adult Start:04-Oct-2019 Instruction Type:Patient Education Patient Instructions Indication:BMI 26.0-26.9,adult Start:04-Oct-2019 Instruction Type:Provider Instructions for Treatment How to access health informa tion online - Detail Indication:Non-smoker Start:13-Sep-2019 Instruction Type:Patient Education How to access health informa tion online Indication:Non-smoker Start:13-Sep-2019 Instruction Type:Patient Education Patient Instructions Indication:Non-smoker Start:13-Sep-2019 Instruction Type:Provider Instructions for Treatment How to access health informa tion online Indication:BMI 27.0-27.9,adult Start:03-Mar-2019 Instruction Type:Patient Education How to access health informa tion online - Detail Indication:BMI 27.0-27.9,adult Start:03-Mar-2019 Instruction Type:Patient Education Patient Instructions Indication:BMI 27.0-27.9,adult Start:03-Mar-2019 Instruction Type:Provider Instructions for Treatment How to access health informa tion online Indication:BMI 27.0-27.9,adult Start:15-Feb-2019 Instruction Type:Patient Education How to access health informa tion online - Detail Indication:BMI 27.0-27.9,adult Start:15-Feb-2019 Instruction Type:Patient Education Patient Instructions Indication:BMI 27.0-27.9,adult Start:15-Feb-2019 Instruction Type:Provider Instructions for Treatment How to access health informa tion online Indication:BMI 26.0-26.9,adult Start:20-Jan-2019 Instruction Type:Patient Education Patient Instructions Indication:BMI 26.0-26.9,adult Start:20-Jan-2019 Instruction Type:Provider Instructions for Treatment How to access health informa tion online Indication:Non-smoker Start:15-Oct-2018 Instruction Type:Patient Education How to access health informa tion online - Detail Indication:Non-smoker Start:15-Oct-2018 Instruction Type:Patient Education Patient Instructions Indication:Non-smoker Start:15-Oct-2018 Instruction Type:Provider Instructions for Treatment How to access health informa tion online Indication:Non-smoker Start:29-Apr-2018 Instruction Type:Patient Education How to access health informa tion online - Detail Indication:Non-smoker Start:29-Apr-2018 Instruction Type:Patient Education Patient Instructions Indication:Non-smoker Start:29-Apr-2018 Instruction Type:Provider Instructions for Treatment How to access health informa tion online Indication:Non-smoker Start:23-Apr-2018 Instruction Type:Patient Education How to access health informa tion online - Detail Indication:Non-smoker Start:23-Apr-2018 Instruction Type:Patient Education Patient Instructions Indication:Cough Start:23-Apr-2018 Instruction Type:Provider Instructions for Treatment How to access health informa tion online Indication:Non-smoker Start:05-Jan-2018 Instruction Type:Patient Education How to access health informa tion online - Detail Indication:Non-smoker Start:05-Jan-2018 Instruction Type:Patient Education Patient Instructions Indication:Sore throat Start:05-Jan-2018 Instruction Type:Provider Instructions for Treatment cardiovascular counseling Indication:Coronary artery disease Start:27-Nov-2017 Instruction Type:Provider Instructions for Treatment How to access health informa tion online Indication:Non-smoker Start:27-Nov-2017 Instruction Type:Patient Education How to access health informa tion online - Detail Indication:Non-smoker Start:27-Nov-2017 Instruction Type:Patient Education Patient Instructions Indication:Non-smoker Start:27-Nov-2017 Instruction Type:Provider Instructions for Treatment How to access health informa tion online Indication:BMI 28.0-28.9,adult Start:17-Apr-2017 Instruction Type:Patient Education How to access health informa tion online - Detail Indication:BMI 28.0-28.9,adult Start:17-Apr-2017 Instruction Type:Patient Education Patient Instructions Indication:BMI 28.0-28.9,adult Start:17-Apr-2017 Instruction Type:Provider Instructions for Treatment cardiovascular counseling Indication:Coronary artery disease Start:20-Nov-2016 Instruction Type:Provider Instructions for Treatment How to access health informa tion online Indication:BMI 27.0-27.9,adult Start:20-Nov-2016 Instruction Type:Patient Education How to access health informa tion online - Detail Indication:BMI 27.0-27.9,adult Start:20-Nov-2016 Instruction Type:Patient Education Patient Instructions Indication:BMI 27.0-27.9,adult Start:20-Nov-2016 Instruction Type:Provider Instructions for Treatment Patient Instructions Indication:Encounter for screening for malignant neoplasm of prostate (Renamed from Screening for prostate cancer) Start:14-Oct-2016 Instruction Type:Provider Instructions for Treatment How to access [employer] informa [employer] - Detail Indication:Non-smoker Start:08-Aug-2016 Instruction Type:Patient Education Patient Instructions Indication:Non-smoker Start:08-Aug-2016 Instruction Type:Provider Instructions for Treatment Patient Instructions Indication:Annual Medicare Phyiscal WITHOUT abnormal findings (Renamed from Encounter for general adult medical examination without abnormal findings) Start:13-Nov-2015 Instruction Type:Provider Instructions for Treatment Patient Instructions Indication:Bee sting reaction, accidental or unintentional, initial encounter Start:08-Nov-2015 Instruction Type:Provider Instructions for Treatment How to access [employer] informa [employer] Indication:Bee sting reaction, accidental or unintentional, initial encounter Start:17-Aug-2015 Instruction Type:Patient Education How to access health informa [employer] - Detail Indication:Bee sting reaction, accidental or unintentional, initial encounter Start:17-Aug-2015 Instruction Type:Patient Education Patient Instructions Indication:Bee sting reaction, accidental or unintentional, initial encounter Start:17-Aug-2015 Instruction Type:Provider Instructions for Treatment How to access [employer] Indication:Coronary artery disease Start:07-Nov-2014 Instruction Type:Patient Education How to access health informa [employer] - Detail Indication:Coronary artery disease Start:07-Nov-2014 Instruction Type:Patient Education Patient Instructions Indication:Coronary artery disease Start:07-Nov-2014 Instruction Type:Provider Instructions for Treatment Patient Instructions Indication:Hypothyroidism Start:11-Aug-2013 Instruction Type:Provider Instructions for Treatment Patient Instructions Indication:Hypothyroidism Start:21-Apr-2013 Instruction Type:Provider Instructions for Treatment Patient Instructions Indication:Hypercholesterolemia Start:02-Sep-2012 Instruction Type:Provider Instructions for Treatment Patient Instructions Indication:Hypothyroidism Start:02-Jun-2012 Instruction Type:Provider Instructions for Treatment Name Dates Details How to access health informa [employer] online Indication:BMI 26.0-26.9,adult Start:06-Dec-2019 Instruction Type:Patient Education How to access health informa tion online - Detail Indication:BMI 26.0-26.9,adult Start:06-Dec-2019 Instruction Type:Patient Education Patient Instructions Indication:BMI 26.0-26.9,adult Start:06-Dec-2019 Instruction Type:Provider Instructions for Treatment cardiovascular counseling Indication:Coronary artery disease Start:04-Oct-2019 Instruction Type:Provider Instructions for Treatment How to access health informa tion online Indication:BMI 26.0-26.9,adult Start:04-Oct-2019 Instruction Type:Patient Education How to access health informa tion online - Detail Indication:BMI 26.0-26.9,adult Start:04-Oct-2019 Instruction Type:Patient Education Patient Instructions Indication:BMI 26.0-26.9,adult Start:04-Oct-2019 Instruction Type:Provider Instructions for Treatment How to access health informa tion online - Detail Indication:Non-smoker Start:13-Sep-2019 Instruction Type:Patient Education How to access health informa tion online Indication:Non-smoker Start:13-Sep-2019 Instruction Type:Patient Education Patient Instructions Indication:Non-smoker Start:13-Sep-2019 Instruction Type:Provider Instructions for Treatment How to access health informa tion online Indication:BMI 27.0-27.9,adult Start:03-Mar-2019 Instruction Type:Patient Education How to access health informa tion online - Detail Indication:BMI 27.0-27.9,adult Start:03-Mar-2019 Instruction Type:Patient Education Patient Instructions Indication:BMI 27.0-27.9,adult Start:03-Mar-2019 Instruction Type:Provider Instructions for Treatment How to access health informa tion online Indication:BMI 27.0-27.9,adult Start:15-Feb-2019 Instruction Type:Patient Education How to access health informa tion online - Detail Indication:BMI 27.0-27.9,adult Start:15-Feb-2019 Instruction Type:Patient Education Patient Instructions Indication:BMI 27.0-27.9,adult Start:15-Feb-2019 Instruction Type:Provider Instructions for Treatment How to access health informa tion online Indication:BMI 26.0-26.9,adult Start:20-Jan-2019 Instruction Type:Patient Education Patient Instructions Indication:BMI 26.0-26.9,adult Start:20-Jan-2019 Instruction Type:Provider Instructions for Treatment How to access health informa tion online Indication:Non-smoker Start:15-Oct-2018 Instruction Type:Patient Education How to access health informa tion online - Detail Indication:Non-smoker Start:15-Oct-2018 Instruction Type:Patient Education Patient Instructions Indication:Non-smoker Start:15-Oct-2018 Instruction Type:Provider Instructions for Treatment How to access health informa tion online Indication:Non-smoker Start:29-Apr-2018 Instruction Type:Patient Education How to access health informa tion online - Detail Indication:Non-smoker Start:29-Apr-2018 Instruction Type:Patient Education Patient Instructions Indication:Non-smoker Start:29-Apr-2018 Instruction Type:Provider Instructions for Treatment How to access health informa tion online Indication:Non-smoker Start:23-Apr-2018 Instruction Type:Patient Education How to access health informa tion online - Detail Indication:Non-smoker Start:23-Apr-2018 Instruction Type:Patient Education Patient Instructions Indication:Cough Start:23-Apr-2018 Instruction Type:Provider Instructions for Treatment How to access health informa tion online Indication:Non-smoker Start:05-Jan-2018 Instruction Type:Patient Education How to access health informa tion online - Detail Indication:Non-smoker Start:05-Jan-2018 Instruction Type:Patient Education Patient Instructions Indication:Sore throat Start:05-Jan-2018 Instruction Type:Provider Instructions for Treatment cardiovascular counseling Indication:Coronary artery disease Start:27-Nov-2017 Instruction Type:Provider Instructions for Treatment How to access health informa tion online Indication:Non-smoker Start:27-Nov-2017 Instruction Type:Patient Education How to access health informa tion online - Detail Indication:Non-smoker Start:27-Nov-2017 Instruction Type:Patient Education Patient Instructions Indication:Non-smoker Start:27-Nov-2017 Instruction Type:Provider Instructions for Treatment How to access health informa tion online Indication:BMI 28.0-28.9,adult Start:17-Apr-2017 Instruction Type:Patient Education How to access health informa tion online - Detail Indication:BMI 28.0-28.9,adult Start:17-Apr-2017 Instruction Type:Patient Education Patient Instructions Indication:BMI 28.0-28.9,adult Start:17-Apr-2017 Instruction Type:Provider Instructions for Treatment cardiovascular counseling Indication:Coronary artery disease Start:20-Nov-2016 Instruction Type:Provider Instructions for Treatment How to access health informa tion online Indication:BMI 27.0-27.9,adult Start:20-Nov-2016 Instruction Type:Patient Education How to access health informa tion online - Detail Indication:BMI 27.0-27.9,adult Start:20-Nov-2016 Instruction Type:Patient Education Patient Instructions Indication:BMI 27.0-27.9,adult Start:20-Nov-2016 Instruction Type:Provider Instructions for Treatment Patient Instructions Indication:Encounter for screening for malignant neoplasm of prostate (Renamed from Screening for prostate cancer) Start:14-Oct-2016 Instruction Type:Provider Instructions for Treatment How to access health informa tion online - Detail Indication:Non-smoker Start:08-Aug-2016 Instruction Type:Patient Education Patient Instructions Indication:Non-smoker Start:08-Aug-2016 Instruction Type:Provider Instructions for Treatment Patient Instructions Indication:Annual Medicare Ph[employer] WITHOUT abnormal findings (Renamed from Encounter for general adult medical examination without abnormal findings) Start:13-Nov-2015 Instruction Type:Provider Instructions for Treatment Patient Instructions Indication:Bee sting reaction, accidental or unintentional, initial encounter Start:08-Nov-2015 Instruction Type:Provider Instructions for Treatment How to access health informa tion online Indication:Bee sting reaction, accidental or unintentional, initial encounter Start:17-Aug-2015 Instruction Type:Patient Education How to access health informa tion online - Detail Indication:Bee sting reaction, accidental or unintentional, initial encounter Start:17-Aug-2015 Instruction Type:Patient Education Patient Instructions Indication:Bee sting reaction, accidental or unintentional, initial encounter Start:17-Aug-2015 Instruction Type:Provider Instructions for Treatment How to access health informa tion online Indication:Coronary artery disease Start:07-Nov-2014 Instruction Type:Patient Education How to access health informa tion online - Detail Indication:Coronary artery disease Start:07-Nov-2014 Instruction Type:Patient Education Patient Instructions Indication:Coronary artery disease Start:07-Nov-2014 Instruction Type:Provider Instructions for Treatment Patient Instructions Indication:Hypothyroidism Start:11-Aug-2013 Instruction Type:Provider Instructions for Treatment Patient Instructions Indication:Hypothyroidism Start:21-Apr-2013 Instruction Type:Provider Instructions for Treatment Patient Instructions Indication:Hypercholesterolemia Start:02-Sep-2012 Instruction Type:Provider Instructions for Treatment Patient Instructions Indication:Hypothyroidism Start:02-Jun-2012 Instruction Type:Provider Instructions for Treatment Name Dates Details How to access health informa tion online Indication:BMI 26.0-26.9,adult Start:06-Dec-2019 Instruction Type:Patient Education How to access health informa tion online - Detail Indication:BMI 26.0-26.9,adult Start:06-Dec-2019 Instruction Type:Patient Education Patient Instructions Indication:BMI 26.0-26.9,adult Start:06-Dec-2019 Instruction Type:Provider Instructions for Treatment cardiovascular counseling Indication:Coronary artery disease Start:04-Oct-2019 Instruction Type:Provider Instructions for Treatment How to access health informa tion online Indication:BMI 26.0-26.9,adult Start:04-Oct-2019 Instruction Type:Patient Education How to access health informa tion online - Detail Indication:BMI 26.0-26.9,adult Start:04-Oct-2019 Instruction Type:Patient Education Patient Instructions Indication:BMI 26.0-26.9,adult Start:04-Oct-2019 Instruction Type:Provider Instructions for Treatment How to access health informa tion online - Detail Indication:Non-smoker Start:13-Sep-2019 Instruction Type:Patient Education How to access health informa tion online Indication:Non-smoker Start:13-Sep-2019 Instruction Type:Patient Education Patient Instructions Indication:Non-smoker Start:13-Sep-2019 Instruction Type:Provider Instructions for Treatment How to access health informa tion online Indication:BMI 27.0-27.9,adult Start:03-Mar-2019 Instruction Type:Patient Education How to access health informa tion online - Detail Indication:BMI 27.0-27.9,adult Start:03-Mar-2019 Instruction Type:Patient Education Patient Instructions Indication:BMI 27.0-27.9,adult Start:03-Mar-2019 Instruction Type:Provider Instructions for Treatment How to access health informa tion online Indication:BMI 27.0-27.9,adult Start:15-Feb-2019 Instruction Type:Patient Education How to access health informa tion online - Detail Indication:BMI 27.0-27.9,adult Start:15-Feb-2019 Instruction Type:Patient Education Patient Instructions Indication:BMI 27.0-27.9,adult Start:15-Feb-2019 Instruction Type:Provider Instructions for Treatment How to access health informa tion online Indication:BMI 26.0-26.9,adult Start:20-Jan-2019 Instruction Type:Patient Education Patient Instructions Indication:BMI 26.0-26.9,adult Start:20-Jan-2019 Instruction Type:Provider Instructions for Treatment How to access health informa tion online Indication:Non-smoker Start:15-Oct-2018 Instruction Type:Patient Education How to access health informa tion online - Detail Indication:Non-smoker Start:15-Oct-2018 Instruction Type:Patient Education Patient Instructions Indication:Non-smoker Start:15-Oct-2018 Instruction Type:Provider Instructions for Treatment How to access health informa tion online Indication:Non-smoker Start:29-Apr-2018 Instruction Type:Patient Education How to access health informa tion online - Detail Indication:Non-smoker Start:29-Apr-2018 Instruction Type:Patient Education Patient Instructions Indication:Non-smoker Start:29-Apr-2018 Instruction Type:Provider Instructions for Treatment How to access health informa tion online Indication:Non-smoker Start:23-Apr-2018 Instruction Type:Patient Education How to access health informa tion online - Detail Indication:Non-smoker Start:23-Apr-2018 Instruction Type:Patient Education Patient Instructions Indication:Cough Start:23-Apr-2018 Instruction Type:Provider Instructions for Treatment How to access health informa tion online Indication:Non-smoker Start:05-Jan-2018 Instruction Type:Patient Education How to access health informa tion online - Detail Indication:Non-smoker Start:05-Jan-2018 Instruction Type:Patient Education Patient Instructions Indication:Sore throat Start:05-Jan-2018 Instruction Type:Provider Instructions for Treatment cardiovascular counseling Indication:Coronary artery disease Start:27-Nov-2017 Instruction Type:Provider Instructions for Treatment How to access health informa tion online Indication:Non-smoker Start:27-Nov-2017 Instruction Type:Patient Education How to access health informa tion online - Detail Indication:Non-smoker Start:27-Nov-2017 Instruction Type:Patient Education Patient Instructions Indication:Non-smoker Start:27-Nov-2017 Instruction Type:Provider Instructions for Treatment How to access health informa tion online Indication:BMI 28.0-28.9,adult Start:17-Apr-2017 Instruction Type:Patient Education How to access health informa tion online - Detail Indication:BMI 28.0-28.9,adult Start:17-Apr-2017 Instruction Type:Patient Education Patient Instructions Indication:BMI 28.0-28.9,adult Start:17-Apr-2017 Instruction Type:Provider Instructions for Treatment cardiovascular counseling Indication:Coronary artery disease Start:20-Nov-2016 Instruction Type:Provider Instructions for Treatment How to access health informa tion online Indication:BMI 27.0-27.9,adult Start:20-Nov-2016 Instruction Type:Patient Education How to access health informa tion online - Detail Indication:BMI 27.0-27.9,adult Start:20-Nov-2016 Instruction Type:Patient Education Patient Instructions Indication:BMI 27.0-27.9,adult Start:20-Nov-2016 Instruction Type:Provider Instructions for Treatment Patient Instructions Indication:Encounter for screening for malignant neoplasm of prostate (Renamed from Screening for prostate cancer) Start:14-Oct-2016 Instruction Type:Provider Instructions for Treatment How to access health informa tion online - Detail Indication:Non-smoker Start:08-Aug-2016 Instruction Type:Patient Education Patient Instructions Indication:Non-smoker Start:08-Aug-2016 Instruction Type:Provider Instructions for Treatment Patient Instructions Indication:Annual Medicare Ph[employer] WITHOUT abnormal findings (Renamed from Encounter for general adult medical examination without abnormal findings) Start:13-Nov-2015 Instruction Type:Provider Instructions for Treatment Patient Instructions Indication:Bee sting reaction, accidental or unintentional, initial encounter Start:08-Nov-2015 Instruction Type:Provider Instructions for Treatment How to access health informa tion online Indication:Bee sting reaction, accidental or unintentional, initial encounter Start:17-Aug-2015 Instruction Type:Patient Education How to access health informa tion online - Detail Indication:Bee sting reaction, accidental or unintentional, initial encounter Start:17-Aug-2015 Instruction Type:Patient Education Patient Instructions Indication:Bee sting reaction, accidental or unintentional, initial encounter Start:17-Aug-2015 Instruction Type:Provider Instructions for Treatment How to access health informa tion online Indication:Coronary artery disease Start:07-Nov-2014 Instruction Type:Patient Education How to access health informa tion online - Detail Indication:Coronary artery disease Start:07-Nov-2014 Instruction Type:Patient Education Patient Instructions Indication:Coronary artery disease Start:07-Nov-2014 Instruction Type:Provider Instructions for Treatment Patient Instructions Indication:Hypothyroidism Start:11-Aug-2013 Instruction Type:Provider Instructions for Treatment Patient Instructions Indication:Hypothyroidism Start:21-Apr-2013 Instruction Type:Provider Instructions for Treatment Patient Instructions Indication:Hypercholesterolemia Start:02-Sep-2012 Instruction Type:Provider Instructions for Treatment Patient Instructions Indication:Hypothyroidism Start:02-Jun-2012 Instruction Type:Provider Instructions for Treatment Name Dates Details How to access health informa tion online Indication:BMI 26.0-26.9,adult Start:06-Dec-2019 Instruction Type:Patient Education How to access health informa tion online - Detail Indication:BMI 26.0-26.9,adult Start:06-Dec-2019 Instruction Type:Patient Education Patient Instructions Indication:BMI 26.0-26.9,adult Start:06-Dec-2019 Instruction Type:Provider Instructions for Treatment cardiovascular counseling Indication:Coronary artery disease Start:04-Oct-2019 Instruction Type:Provider Instructions for Treatment How to access health informa tion online Indication:BMI 26.0-26.9,adult Start:04-Oct-2019 Instruction Type:Patient Education How to access health informa tion online - Detail Indication:BMI 26.0-26.9,adult Start:04-Oct-2019 Instruction Type:Patient Education Patient Instructions Indication:BMI 26.0-26.9,adult Start:04-Oct-2019 Instruction Type:Provider Instructions for Treatment How to access health informa tion online - Detail Indication:Non-smoker Start:13-Sep-2019 Instruction Type:Patient Education How to access health informa tion online Indication:Non-smoker Start:13-Sep-2019 Instruction Type:Patient Education Patient Instructions Indication:Non-smoker Start:13-Sep-2019 Instruction Type:Provider Instructions for Treatment How to access health informa tion online Indication:BMI 27.0-27.9,adult Start:03-Mar-2019 Instruction Type:Patient Education How to access health informa tion online - Detail Indication:BMI 27.0-27.9,adult Start:03-Mar-2019 Instruction Type:Patient Education Patient Instructions Indication:BMI 27.0-27.9,adult Start:03-Mar-2019 Instruction Type:Provider Instructions for Treatment How to access health informa tion online Indication:BMI 27.0-27.9,adult Start:15-Feb-2019 Instruction Type:Patient Education How to access health informa tion online - Detail Indication:BMI 27.0-27.9,adult Start:15-Feb-2019 Instruction Type:Patient Education Patient Instructions Indication:BMI 27.0-27.9,adult Start:15-Feb-2019 Instruction Type:Provider Instructions for Treatment How to access health informa tion online Indication:BMI 26.0-26.9,adult Start:20-Jan-2019 Instruction Type:Patient Education Patient Instructions Indication:BMI 26.0-26.9,adult Start:20-Jan-2019 Instruction Type:Provider Instructions for Treatment How to access health informa tion online Indication:Non-smoker Start:15-Oct-2018 Instruction Type:Patient Education How to access health informa tion online - Detail Indication:Non-smoker Start:15-Oct-2018 Instruction Type:Patient Education Patient Instructions Indication:Non-smoker Start:15-Oct-2018 Instruction Type:Provider Instructions for Treatment How to access health informa tion online Indication:Non-smoker Start:29-Apr-2018 Instruction Type:Patient Education How to access health informa tion online - Detail Indication:Non-smoker Start:29-Apr-2018 Instruction Type:Patient Education Patient Instructions Indication:Non-smoker Start:29-Apr-2018 Instruction Type:Provider Instructions for Treatment How to access health informa tion online Indication:Non-smoker Start:23-Apr-2018 Instruction Type:Patient Education How to access health informa tion online - Detail Indication:Non-smoker Start:23-Apr-2018 Instruction Type:Patient Education Patient Instructions Indication:Cough Start:23-Apr-2018 Instruction Type:Provider Instructions for Treatment How to access health informa tion online Indication:Non-smoker Start:05-Jan-2018 Instruction Type:Patient Education How to access health informa tion online - Detail Indication:Non-smoker Start:05-Jan-2018 Instruction Type:Patient Education Patient Instructions Indication:Sore throat Start:05-Jan-2018 Instruction Type:Provider Instructions for Treatment cardiovascular counseling Indication:Coronary artery disease Start:27-Nov-2017 Instruction Type:Provider Instructions for Treatment How to access health informa tion online Indication:Non-smoker Start:27-Nov-2017 Instruction Type:Patient Education How to access health informa tion online - Detail Indication:Non-smoker Start:27-Nov-2017 Instruction Type:Patient Education Patient Instructions Indication:Non-smoker Start:27-Nov-2017 Instruction Type:Provider Instructions for Treatment How to access health informa tion online Indication:BMI 28.0-28.9,adult Start:17-Apr-2017 Instruction Type:Patient Education How to access health informa tion online - Detail Indication:BMI 28.0-28.9,adult Start:17-Apr-2017 Instruction Type:Patient Education Patient Instructions Indication:BMI 28.0-28.9,adult Start:17-Apr-2017 Instruction Type:Provider Instructions for Treatment cardiovascular counseling Indication:Coronary artery disease Start:20-Nov-2016 Instruction Type:Provider Instructions for Treatment How to access health informa tion online Indication:BMI 27.0-27.9,adult Start:20-Nov-2016 Instruction Type:Patient Education How to access health informa tion online - Detail Indication:BMI 27.0-27.9,adult Start:20-Nov-2016 Instruction Type:Patient Education Patient Instructions Indication:BMI 27.0-27.9,adult Start:20-Nov-2016 Instruction Type:Provider Instructions for Treatment Patient Instructions Indication:Encounter for screening for malignant neoplasm of prostate (Renamed from Screening for prostate cancer) Start:14-Oct-2016 Instruction Type:Provider Instructions for Treatment How to access health informa tion online - Detail Indication:Non-smoker Start:08-Aug-2016 Instruction Type:Patient Education Patient Instructions Indication:Non-smoker Start:08-Aug-2016 Instruction Type:Provider Instructions for Treatment Patient Instructions Indication:Annual Medicare Ph[employer] WITHOUT abnormal findings (Renamed from Encounter for general adult medical examination without abnormal findings) Start:13-Nov-2015 Instruction Type:Provider Instructions for Treatment Patient Instructions Indication:Bee sting reaction, accidental or unintentional, initial encounter Start:08-Nov-2015 Instruction Type:Provider Instructions for Treatment How to access health informa tion online Indication:Bee sting reaction, accidental or unintentional, initial encounter Start:17-Aug-2015 Instruction Type:Patient Education How to access health informa tion online - Detail Indication:Bee sting reaction, accidental or unintentional, initial encounter Start:17-Aug-2015 Instruction Type:Patient Education Patient Instructions Indication:Bee sting reaction, accidental or unintentional, initial encounter Start:17-Aug-2015 Instruction Type:Provider Instructions for Treatment How to access health informa tion online Indication:Coronary artery disease Start:07-Nov-2014 Instruction Type:Patient Education How to access health informa tion online - Detail Indication:Coronary artery disease Start:07-Nov-2014 Instruction Type:Patient Education Patient Instructions Indication:Coronary artery disease Start:07-Nov-2014 Instruction Type:Provider Instructions for Treatment Patient Instructions Indication:Hypothyroidism Start:11-Aug-2013 Instruction Type:Provider Instructions for Treatment Patient Instructions Indication:Hypothyroidism Start:21-Apr-2013 Instruction Type:Provider Instructions for Treatment Patient Instructions Indication:Hypercholesterolemia Start:02-Sep-2012 Instruction Type:Provider Instructions for Treatment Patient Instructions Indication:Hypothyroidism Start:02-Jun-2012 Instruction Type:Provider Instructions for Treatment Name Dates Details Non-smoker : How to access h ealth information online Indication:Non-smoker Non-smoker : How to access h ealth information online - Detail Indication:Non-smoker Non-smoker : Patient Instruc tions Indication:Non-smoker Cough : Patient Instructions Indication:Cough Sore throat : Patient Instru ctions Indication:Sore throat Coronary artery disease : ca rdiovascular counseling Indication:Coronary artery disease BMI 28.0-28.9,adult : How to access health information online Indication:BMI 28.0-28.9,adult BMI 28.0-28.9,adult : How to access health information online - Detail Indication:BMI 28.0-28.9,adult BMI 28.0-28.9,adult : Patien t Instructions Indication:BMI 28.0-28.9,adult BMI 27.0-27.9,adult : How to access health information online Indication:BMI 27.0-27.9,adult BMI 27.0-27.9,adult : How to access health information online - Detail Indication:BMI 27.0-27.9,adult BMI 27.0-27.9,adult : Patien t Instructions Indication:BMI 27.0-27.9,adult Encounter for screening for malignant neoplasm of prostate (Renamed from Screening for prostate cancer) : Patient Instructions Indication:Encounter for screening for malignant neoplasm of prostate (Renamed from Screening for prostate cancer) Annual Medicare [facility] abnormal findings (Renamed from Encounter for general adult medical examination without abnormal findings) : Patient Instructions Indication:Annual Medicare Ph[employer] WITHOUT abnormal findings (Renamed from Encounter for general adult medical examination without abnormal findings) Bee sting reaction, accident al or unintentional, initial encounter : Patient Instructions Indication:Bee sting reaction, accidental or unintentional, initial encounter Bee sting reaction, accident al or unintentional, initial encounter : How to access health information online Indication:Bee sting reaction, accidental or unintentional, initial encounter Bee sting reaction, accident al or unintentional, initial encounter : How to access health information online - Detail Indication:Bee sting reaction, accidental or unintentional, initial encounter Coronary artery disease : Ho w to access health information online Indication:Coronary artery disease Coronary artery disease : Ho w to access health information online - Detail Indication:Coronary artery disease Coronary artery disease : Danika monsivais Instructions Indication:Coronary artery disease Hypothyroidism : Patient Ins tructions Indication:Hypothyroidism Hypercholesterolemia : Patie nt Instructions Indication:Hypercholesterolemia Name Dates Details How to access health informa tion online Indication:Non-smoker Start:29-Apr-2018 Instruction Type:Patient Education How to access health informa tion online - Detail Indication:Non-smoker Start:29-Apr-2018 Instruction Type:Patient Education Patient Instructions Indication:Non-smoker Start:29-Apr-2018 Instruction Type:Provider Instructions for Treatment How to access health informa tion online Indication:Non-smoker Start:23-Apr-2018 Instruction Type:Patient Education How to access health informa tion online - Detail Indication:Non-smoker Start:23-Apr-2018 Instruction Type:Patient Education Patient Instructions Indication:Cough Start:23-Apr-2018 Instruction Type:Provider Instructions for Treatment How to access health informa tion online Indication:Non-smoker Start:05-Jan-2018 Instruction Type:Patient Education How to access health informa tion online - Detail Indication:Non-smoker Start:05-Jan-2018 Instruction Type:Patient Education Patient Instructions Indication:Sore throat Start:05-Jan-2018 Instruction Type:Provider Instructions for Treatment cardiovascular counseling Indication:Coronary artery disease Start:27-Nov-2017 Instruction Type:Provider Instructions for Treatment How to access health informa tion online Indication:Non-smoker Start:27-Nov-2017 Instruction Type:Patient Education How to access health informa tion online - Detail Indication:Non-smoker Start:27-Nov-2017 Instruction Type:Patient Education Patient Instructions Indication:Non-smoker Start:27-Nov-2017 Instruction Type:Provider Instructions for Treatment How to access health informa tion online Indication:BMI 28.0-28.9,adult Start:17-Apr-2017 Instruction Type:Patient Education How to access health informa tion online - Detail Indication:BMI 28.0-28.9,adult Start:17-Apr-2017 Instruction Type:Patient Education Patient Instructions Indication:BMI 28.0-28.9,adult Start:17-Apr-2017 Instruction Type:Provider Instructions for Treatment cardiovascular counseling Indication:Coronary artery disease Start:20-Nov-2016 Instruction Type:Provider Instructions for Treatment How to access health informa tion online Indication:BMI 27.0-27.9,adult Start:20-Nov-2016 Instruction Type:Patient Education How to access health informa tion online - Detail Indication:BMI 27.0-27.9,adult Start:20-Nov-2016 Instruction Type:Patient Education Patient Instructions Indication:BMI 27.0-27.9,adult Start:20-Nov-2016 Instruction Type:Provider Instructions for Treatment Patient Instructions Indication:Encounter for screening for malignant neoplasm of prostate (Renamed from Screening for prostate cancer) Start:14-Oct-2016 Instruction Type:Provider Instructions for Treatment How to access health informa tion online - Detail Indication:Non-smoker Start:08-Aug-2016 Instruction Type:Patient Education Patient Instructions Indication:Non-smoker Start:08-Aug-2016 Instruction Type:Provider Instructions for Treatment Patient Instructions Indication:Annual Medicare Phyiscal WITHOUT abnormal findings (Renamed from Encounter for general adult medical examination without abnormal findings) Start:13-Nov-2015 Instruction Type:Provider Instructions for Treatment Patient Instructions Indication:Bee sting reaction, accidental or unintentional, initial encounter Start:08-Nov-2015 Instruction Type:Provider Instructions for Treatment How to access health informa tion online Indication:Bee sting reaction, accidental or unintentional, initial encounter Start:17-Aug-2015 Instruction Type:Patient Education How to access health informa tion online - Detail Indication:Bee sting reaction, accidental or unintentional, initial encounter Start:17-Aug-2015 Instruction Type:Patient Education Patient Instructions Indication:Bee sting reaction, accidental or unintentional, initial encounter Start:17-Aug-2015 Instruction Type:Provider Instructions for Treatment How to access health informa tion online Indication:Coronary artery disease Start:07-Nov-2014 Instruction Type:Patient Education How to access health informa tion online - Detail Indication:Coronary artery disease Start:07-Nov-2014 Instruction Type:Patient Education Patient Instructions Indication:Coronary artery disease Start:07-Nov-2014 Instruction Type:Provider Instructions for Treatment Patient Instructions Indication:Hypothyroidism Start:11-Aug-2013 Instruction Type:Provider Instructions for Treatment Patient Instructions Indication:Hypothyroidism Start:21-Apr-2013 Instruction Type:Provider Instructions for Treatment Patient Instructions Indication:Hypercholesterolemia Start:02-Sep-2012 Instruction Type:Provider Instructions for Treatment Patient Instructions Indication:Hypothyroidism Start:02-Jun-2012 Instruction Type:Provider Instructions for Treatment Name Dates Details How to access health informa tion online Indication:BMI 26.0-26.9,adult Start:06-Dec-2019 Instruction Type:Patient Education How to access health informa tion online - Detail Indication:BMI 26.0-26.9,adult Start:06-Dec-2019 Instruction Type:Patient Education Patient Instructions Indication:BMI 26.0-26.9,adult Start:06-Dec-2019 Instruction Type:Provider Instructions for Treatment cardiovascular counseling Indication:Coronary artery disease Start:04-Oct-2019 Instruction Type:Provider Instructions for Treatment How to access health informa tion online Indication:BMI 26.0-26.9,adult Start:04-Oct-2019 Instruction Type:Patient Education How to access health informa tion online - Detail Indication:BMI 26.0-26.9,adult Start:04-Oct-2019 Instruction Type:Patient Education Patient Instructions Indication:BMI 26.0-26.9,adult Start:04-Oct-2019 Instruction Type:Provider Instructions for Treatment How to access health informa tion online - Detail Indication:Non-smoker Start:13-Sep-2019 Instruction Type:Patient Education How to access health informa tion online Indication:Non-smoker Start:13-Sep-2019 Instruction Type:Patient Education Patient Instructions Indication:Non-smoker Start:13-Sep-2019 Instruction Type:Provider Instructions for Treatment How to access health informa tion online Indication:BMI 27.0-27.9,adult Start:03-Mar-2019 Instruction Type:Patient Education How to access health informa tion online - Detail Indication:BMI 27.0-27.9,adult Start:03-Mar-2019 Instruction Type:Patient Education Patient Instructions Indication:BMI 27.0-27.9,adult Start:03-Mar-2019 Instruction Type:Provider Instructions for Treatment How to access health informa tion online Indication:BMI 27.0-27.9,adult Start:15-Feb-2019 Instruction Type:Patient Education How to access health informa tion online - Detail Indication:BMI 27.0-27.9,adult Start:15-Feb-2019 Instruction Type:Patient Education Patient Instructions Indication:BMI 27.0-27.9,adult Start:15-Feb-2019 Instruction Type:Provider Instructions for Treatment How to access health informa tion online Indication:BMI 26.0-26.9,adult Start:20-Jan-2019 Instruction Type:Patient Education Patient Instructions Indication:BMI 26.0-26.9,adult Start:20-Jan-2019 Instruction Type:Provider Instructions for Treatment How to access health informa tion online Indication:Non-smoker Start:15-Oct-2018 Instruction Type:Patient Education How to access health informa tion online - Detail Indication:Non-smoker Start:15-Oct-2018 Instruction Type:Patient Education Patient Instructions Indication:Non-smoker Start:15-Oct-2018 Instruction Type:Provider Instructions for Treatment How to access health informa tion online Indication:Non-smoker Start:29-Apr-2018 Instruction Type:Patient Education How to access health informa tion online - Detail Indication:Non-smoker Start:29-Apr-2018 Instruction Type:Patient Education Patient Instructions Indication:Non-smoker Start:29-Apr-2018 Instruction Type:Provider Instructions for Treatment How to access health informa tion online Indication:Non-smoker Start:23-Apr-2018 Instruction Type:Patient Education How to access health informa tion online - Detail Indication:Non-smoker Start:23-Apr-2018 Instruction Type:Patient Education Patient Instructions Indication:Cough Start:23-Apr-2018 Instruction Type:Provider Instructions for Treatment How to access health informa tion online Indication:Non-smoker Start:05-Jan-2018 Instruction Type:Patient Education How to access health informa tion online - Detail Indication:Non-smoker Start:05-Jan-2018 Instruction Type:Patient Education Patient Instructions Indication:Sore throat Start:05-Jan-2018 Instruction Type:Provider Instructions for Treatment cardiovascular counseling Indication:Coronary artery disease Start:27-Nov-2017 Instruction Type:Provider Instructions for Treatment How to access health informa tion online Indication:Non-smoker Start:27-Nov-2017 Instruction Type:Patient Education How to access health informa tion online - Detail Indication:Non-smoker Start:27-Nov-2017 Instruction Type:Patient Education Patient Instructions Indication:Non-smoker Start:27-Nov-2017 Instruction Type:Provider Instructions for Treatment How to access health informa tion online Indication:BMI 28.0-28.9,adult Start:17-Apr-2017 Instruction Type:Patient Education How to access health informa tion online - Detail Indication:BMI 28.0-28.9,adult Start:17-Apr-2017 Instruction Type:Patient Education Patient Instructions Indication:BMI 28.0-28.9,adult Start:17-Apr-2017 Instruction Type:Provider Instructions for Treatment cardiovascular counseling Indication:Coronary artery disease Start:20-Nov-2016 Instruction Type:Provider Instructions for Treatment How to access health informa tion online Indication:BMI 27.0-27.9,adult Start:20-Nov-2016 Instruction Type:Patient Education How to access health informa tion online - Detail Indication:BMI 27.0-27.9,adult Start:20-Nov-2016 Instruction Type:Patient Education Patient Instructions Indication:BMI 27.0-27.9,adult Start:20-Nov-2016 Instruction Type:Provider Instructions for Treatment Patient Instructions Indication:Encounter for screening for malignant neoplasm of prostate (Renamed from Screening for prostate cancer) Start:14-Oct-2016 Instruction Type:Provider Instructions for Treatment How to access health informa tion online - Detail Indication:Non-smoker Start:08-Aug-2016 Instruction Type:Patient Education Patient Instructions Indication:Non-smoker Start:08-Aug-2016 Instruction Type:Provider Instructions for Treatment Patient Instructions Indication:Annual Medicare Phyiscal WITHOUT abnormal findings (Renamed from Encounter for general adult medical examination without abnormal findings) Start:13-Nov-2015 Instruction Type:Provider Instructions for Treatment Patient Instructions Indication:Bee sting reaction, accidental or unintentional, initial encounter Start:08-Nov-2015 Instruction Type:Provider Instructions for Treatment How to access health informa tion online Indication:Bee sting reaction, accidental or unintentional, initial encounter Start:17-Aug-2015 Instruction Type:Patient Education How to access health informa tion online - Detail Indication:Bee sting reaction, accidental or unintentional, initial encounter Start:17-Aug-2015 Instruction Type:Patient Education Patient Instructions Indication:Bee sting reaction, accidental or unintentional, initial encounter Start:17-Aug-2015 Instruction Type:Provider Instructions for Treatment How to access health informa tion online Indication:Coronary artery disease Start:07-Nov-2014 Instruction Type:Patient Education How to access health informa tion online - Detail Indication:Coronary artery disease Start:07-Nov-2014 Instruction Type:Patient Education Patient Instructions Indication:Coronary artery disease Start:07-Nov-2014 Instruction Type:Provider Instructions for Treatment Patient Instructions Indication:Hypothyroidism Start:11-Aug-2013 Instruction Type:Provider Instructions for Treatment Patient Instructions Indication:Hypothyroidism Start:21-Apr-2013 Instruction Type:Provider Instructions for Treatment Patient Instructions Indication:Hypercholesterolemia Start:02-Sep-2012 Instruction Type:Provider Instructions for Treatment Patient Instructions Indication:Hypothyroidism Start:02-Jun-2012 Instruction Type:Provider Instructions for Treatment Name Dates Details Patient Instructions Indication:Non-smoker Start:05-Jun-2020 Instruction Type:Provider Instructions for Treatment How to Access Health Informa tion Online using Patient Portal and [employer] Apps Indication:Non-smoker Start:05-Jun-2020 Instruction Type:Patient Education How to access health informa tion online Indication:BMI 26.0-26.9,adult Start:06-Dec-2019 Instruction Type:Patient Education How to access health informa tion online - Detail Indication:BMI 26.0-26.9,adult Start:06-Dec-2019 Instruction Type:Patient Education Patient Instructions Indication:BMI 26.0-26.9,adult Start:06-Dec-2019 Instruction Type:Provider Instructions for Treatment cardiovascular counseling Indication:Coronary artery disease Start:04-Oct-2019 Instruction Type:Provider Instructions for Treatment How to access health informa tion online Indication:BMI 26.0-26.9,adult Start:04-Oct-2019 Instruction Type:Patient Education How to access health informa tion online - Detail Indication:BMI 26.0-26.9,adult Start:04-Oct-2019 Instruction Type:Patient Education Patient Instructions Indication:BMI 26.0-26.9,adult Start:04-Oct-2019 Instruction Type:Provider Instructions for Treatment How to access health informa tion online - Detail Indication:Non-smoker Start:13-Sep-2019 Instruction Type:Patient Education How to access health informa tion online Indication:Non-smoker Start:13-Sep-2019 Instruction Type:Patient Education Patient Instructions Indication:Non-smoker Start:13-Sep-2019 Instruction Type:Provider Instructions for Treatment How to access health informa tion online Indication:BMI 27.0-27.9,adult Start:03-Mar-2019 Instruction Type:Patient Education How to access health informa tion online - Detail Indication:BMI 27.0-27.9,adult Start:03-Mar-2019 Instruction Type:Patient Education Patient Instructions Indication:BMI 27.0-27.9,adult Start:03-Mar-2019 Instruction Type:Provider Instructions for Treatment How to access health informa tion online Indication:BMI 27.0-27.9,adult Start:15-Feb-2019 Instruction Type:Patient Education How to access health informa tion online - Detail Indication:BMI 27.0-27.9,adult Start:15-Feb-2019 Instruction Type:Patient Education Patient Instructions Indication:BMI 27.0-27.9,adult Start:15-Feb-2019 Instruction Type:Provider Instructions for Treatment How to access health informa tion online Indication:BMI 26.0-26.9,adult Start:20-Jan-2019 Instruction Type:Patient Education Patient Instructions Indication:BMI 26.0-26.9,adult Start:20-Jan-2019 Instruction Type:Provider Instructions for Treatment How to access health informa tion online Indication:Non-smoker Start:15-Oct-2018 Instruction Type:Patient Education How to access health informa tion online - Detail Indication:Non-smoker Start:15-Oct-2018 Instruction Type:Patient Education Patient Instructions Indication:Non-smoker Start:15-Oct-2018 Instruction Type:Provider Instructions for Treatment How to access health informa tion online Indication:Non-smoker Start:29-Apr-2018 Instruction Type:Patient Education How to access health informa tion online - Detail Indication:Non-smoker Start:29-Apr-2018 Instruction Type:Patient Education Patient Instructions Indication:Non-smoker Start:29-Apr-2018 Instruction Type:Provider Instructions for Treatment How to access health informa tion online Indication:Non-smoker Start:23-Apr-2018 Instruction Type:Patient Education How to access health informa tion online - Detail Indication:Non-smoker Start:23-Apr-2018 Instruction Type:Patient Education Patient Instructions Indication:Cough Start:23-Apr-2018 Instruction Type:Provider Instructions for Treatment How to access health informa tion online Indication:Non-smoker Start:05-Jan-2018 Instruction Type:Patient Education How to access health informa tion online - Detail Indication:Non-smoker Start:05-Jan-2018 Instruction Type:Patient Education Patient Instructions Indication:Sore throat Start:05-Jan-2018 Instruction Type:Provider Instructions for Treatment cardiovascular counseling Indication:Coronary artery disease Start:27-Nov-2017 Instruction Type:Provider Instructions for Treatment How to access health informa tion online Indication:Non-smoker Start:27-Nov-2017 Instruction Type:Patient Education How to access health informa tion online - Detail Indication:Non-smoker Start:27-Nov-2017 Instruction Type:Patient Education Patient Instructions Indication:Non-smoker Start:27-Nov-2017 Instruction Type:Provider Instructions for Treatment How to access health informa tion online Indication:BMI 28.0-28.9,adult Start:17-Apr-2017 Instruction Type:Patient Education How to access health informa tion online - Detail Indication:BMI 28.0-28.9,adult Start:17-Apr-2017 Instruction Type:Patient Education Patient Instructions Indication:BMI 28.0-28.9,adult Start:17-Apr-2017 Instruction Type:Provider Instructions for Treatment cardiovascular counseling Indication:Coronary artery disease Start:20-Nov-2016 Instruction Type:Provider Instructions for Treatment How to access health informa tion online Indication:BMI 27.0-27.9,adult Start:20-Nov-2016 Instruction Type:Patient Education How to access health informa tion online - Detail Indication:BMI 27.0-27.9,adult Start:20-Nov-2016 Instruction Type:Patient Education Patient Instructions Indication:BMI 27.0-27.9,adult Start:20-Nov-2016 Instruction Type:Provider Instructions for Treatment Patient Instructions Indication:Encounter for screening for malignant neoplasm of prostate (Renamed from Screening for prostate cancer) Start:14-Oct-2016 Instruction Type:Provider Instructions for Treatment How to access health informa tion online - Detail Indication:Non-smoker Start:08-Aug-2016 Instruction Type:Patient Education Patient Instructions Indication:Non-smoker Start:08-Aug-2016 Instruction Type:Provider Instructions for Treatment Patient Instructions Indication:Annual Medicare Phyiscal WITHOUT abnormal findings (Renamed from Encounter for general adult medical examination without abnormal findings) Start:13-Nov-2015 Instruction Type:Provider Instructions for Treatment Patient Instructions Indication:Bee sting reaction, accidental or unintentional, initial encounter Start:08-Nov-2015 Instruction Type:Provider Instructions for Treatment How to access health informa tion online Indication:Bee sting reaction, accidental or unintentional, initial encounter Start:17-Aug-2015 Instruction Type:Patient Education How to access health informa tion online - Detail Indication:Bee sting reaction, accidental or unintentional, initial encounter Start:17-Aug-2015 Instruction Type:Patient Education Patient Instructions Indication:Bee sting reaction, accidental or unintentional, initial encounter Start:17-Aug-2015 Instruction Type:Provider Instructions for Treatment How to access health informa tion online Indication:Coronary artery disease Start:07-Nov-2014 Instruction Type:Patient Education How to access health informa tion online - Detail Indication:Coronary artery disease Start:07-Nov-2014 Instruction Type:Patient Education Patient Instructions Indication:Coronary artery disease Start:07-Nov-2014 Instruction Type:Provider Instructions for Treatment Patient Instructions Indication:Hypothyroidism Start:11-Aug-2013 Instruction Type:Provider Instructions for Treatment Patient Instructions Indication:Hypothyroidism Start:21-Apr-2013 Instruction Type:Provider Instructions for Treatment Patient Instructions Indication:Hypercholesterolemia Start:02-Sep-2012 Instruction Type:Provider Instructions for Treatment Patient Instructions Indication:Hypothyroidism Start:02-Jun-2012 Instruction Type:Provider Instructions for Treatment Name Dates Details Patient Instructions Indication:Non-smoker Start:05-Jun-2020 Instruction Type:Provider Instructions for Treatment How to Access Health Informa tion Online using Patient Portal and [employer] Apps Indication:Non-smoker Start:05-Jun-2020 Instruction Type:Patient Education How to access health informa tion online Indication:BMI 26.0-26.9,adult Start:06-Dec-2019 Instruction Type:Patient Education How to access health informa tion online - Detail Indication:BMI 26.0-26.9,adult Start:06-Dec-2019 Instruction Type:Patient Education Patient Instructions Indication:BMI 26.0-26.9,adult Start:06-Dec-2019 Instruction Type:Provider Instructions for Treatment cardiovascular counseling Indication:Coronary artery disease Start:04-Oct-2019 Instruction Type:Provider Instructions for Treatment How to access health informa tion online Indication:BMI 26.0-26.9,adult Start:04-Oct-2019 Instruction Type:Patient Education How to access health informa tion online - Detail Indication:BMI 26.0-26.9,adult Start:04-Oct-2019 Instruction Type:Patient Education Patient Instructions Indication:BMI 26.0-26.9,adult Start:04-Oct-2019 Instruction Type:Provider Instructions for Treatment How to access health informa tion online - Detail Indication:Non-smoker Start:13-Sep-2019 Instruction Type:Patient Education How to access health informa tion online Indication:Non-smoker Start:13-Sep-2019 Instruction Type:Patient Education Patient Instructions Indication:Non-smoker Start:13-Sep-2019 Instruction Type:Provider Instructions for Treatment How to access health informa tion online Indication:BMI 27.0-27.9,adult Start:03-Mar-2019 Instruction Type:Patient Education How to access health informa tion online - Detail Indication:BMI 27.0-27.9,adult Start:03-Mar-2019 Instruction Type:Patient Education Patient Instructions Indication:BMI 27.0-27.9,adult Start:03-Mar-2019 Instruction Type:Provider Instructions for Treatment How to access health informa tion online Indication:BMI 27.0-27.9,adult Start:15-Feb-2019 Instruction Type:Patient Education How to access health informa tion online - Detail Indication:BMI 27.0-27.9,adult Start:15-Feb-2019 Instruction Type:Patient Education Patient Instructions Indication:BMI 27.0-27.9,adult Start:15-Feb-2019 Instruction Type:Provider Instructions for Treatment How to access health informa tion online Indication:BMI 26.0-26.9,adult Start:20-Jan-2019 Instruction Type:Patient Education Patient Instructions Indication:BMI 26.0-26.9,adult Start:20-Jan-2019 Instruction Type:Provider Instructions for Treatment How to access health informa tion online Indication:Non-smoker Start:15-Oct-2018 Instruction Type:Patient Education How to access health informa tion online - Detail Indication:Non-smoker Start:15-Oct-2018 Instruction Type:Patient Education Patient Instructions Indication:Non-smoker Start:15-Oct-2018 Instruction Type:Provider Instructions for Treatment How to access health informa tion online Indication:Non-smoker Start:29-Apr-2018 Instruction Type:Patient Education How to access health informa tion online - Detail Indication:Non-smoker Start:29-Apr-2018 Instruction Type:Patient Education Patient Instructions Indication:Non-smoker Start:29-Apr-2018 Instruction Type:Provider Instructions for Treatment How to access health informa tion online Indication:Non-smoker Start:23-Apr-2018 Instruction Type:Patient Education How to access health informa tion online - Detail Indication:Non-smoker Start:23-Apr-2018 Instruction Type:Patient Education Patient Instructions Indication:Cough Start:23-Apr-2018 Instruction Type:Provider Instructions for Treatment How to access health informa tion online Indication:Non-smoker Start:05-Jan-2018 Instruction Type:Patient Education How to access health informa tion online - Detail Indication:Non-smoker Start:05-Jan-2018 Instruction Type:Patient Education Patient Instructions Indication:Sore throat Start:05-Jan-2018 Instruction Type:Provider Instructions for Treatment cardiovascular counseling Indication:Coronary artery disease Start:27-Nov-2017 Instruction Type:Provider Instructions for Treatment How to access health informa tion online Indication:Non-smoker Start:27-Nov-2017 Instruction Type:Patient Education How to access health informa tion online - Detail Indication:Non-smoker Start:27-Nov-2017 Instruction Type:Patient Education Patient Instructions Indication:Non-smoker Start:27-Nov-2017 Instruction Type:Provider Instructions for Treatment How to access health informa tion online Indication:BMI 28.0-28.9,adult Start:17-Apr-2017 Instruction Type:Patient Education How to access health informa tion online - Detail Indication:BMI 28.0-28.9,adult Start:17-Apr-2017 Instruction Type:Patient Education Patient Instructions Indication:BMI 28.0-28.9,adult Start:17-Apr-2017 Instruction Type:Provider Instructions for Treatment cardiovascular counseling Indication:Coronary artery disease Start:20-Nov-2016 Instruction Type:Provider Instructions for Treatment How to access health informa tion online Indication:BMI 27.0-27.9,adult Start:20-Nov-2016 Instruction Type:Patient Education How to access health informa tion online - Detail Indication:BMI 27.0-27.9,adult Start:20-Nov-2016 Instruction Type:Patient Education Patient Instructions Indication:BMI 27.0-27.9,adult Start:20-Nov-2016 Instruction Type:Provider Instructions for Treatment Patient Instructions Indication:Encounter for screening for malignant neoplasm of prostate (Renamed from Screening for prostate cancer) Start:14-Oct-2016 Instruction Type:Provider Instructions for Treatment How to access health informa tion online - Detail Indication:Non-smoker Start:08-Aug-2016 Instruction Type:Patient Education Patient Instructions Indication:Non-smoker Start:08-Aug-2016 Instruction Type:Provider Instructions for Treatment Patient Instructions Indication:Annual Medicare Phyiscal WITHOUT abnormal findings (Renamed from Encounter for general adult medical examination without abnormal findings) Start:13-Nov-2015 Instruction Type:Provider Instructions for Treatment Patient Instructions Indication:Bee sting reaction, accidental or unintentional, initial encounter Start:08-Nov-2015 Instruction Type:Provider Instructions for Treatment How to access health informa tion [employer] Indication:Bee sting reaction, accidental or unintentional, initial encounter Start:17-Aug-2015 Instruction Type:Patient Education How to access health informa tion online - Detail Indication:Bee sting reaction, accidental or unintentional, initial encounter Start:17-Aug-2015 Instruction Type:Patient Education Patient Instructions Indication:Bee sting reaction, accidental or unintentional, initial encounter Start:17-Aug-2015 Instruction Type:Provider Instructions for Treatment How to access health informa tion online Indication:Coronary artery disease Start:07-Nov-2014 Instruction Type:Patient Education How to access health informa tion online - Detail Indication:Coronary artery disease Start:07-Nov-2014 Instruction Type:Patient Education Patient Instructions Indication:Coronary artery disease Start:07-Nov-2014 Instruction Type:Provider Instructions for Treatment Patient Instructions Indication:Hypothyroidism Start:11-Aug-2013 Instruction Type:Provider Instructions for Treatment Patient Instructions Indication:Hypothyroidism Start:21-Apr-2013 Instruction Type:Provider Instructions for Treatment Patient Instructions Indication:Hypercholesterolemia Start:02-Sep-2012 Instruction Type:Provider Instructions for Treatment Patient Instructions Indication:Hypothyroidism Start:02-Jun-2012 Instruction Type:Provider Instructions for Treatment Advance Directives No Advanced Directives Records Found Name Dates Details Immunization Registry [place] - Effective on 11/20/2016. Expiration date unspecified Effective:20-Nov-2016 Name Dates Details Immunization Registry [place] - Effective on 11/20/2016. Expiration date unspecified Effective:20-Nov-2016 Name Dates Details Immunization Registry [place] - Effective on 11/20/2016. Expiration date unspecified Effective:20-Nov-2016 Name Dates Details Immunization Registry [place] - Effective on 11/20/2016. Expiration date unspecified Effective:20-Nov-2016 Name Dates Details Immunization Registry [place] - Effective on 11/20/2016. Expiration date unspecified Effective:20-Nov-2016 Name Dates Details Immunization Registry [place] - Effective on 11/20/2016. Expiration date unspecified Effective:20-Nov-2016 Name Dates Details Immunization Registry [place] - Effective on 11/20/2016. Expiration date unspecified Effective:20-Nov-2016 Name Dates Details Immunization Registry [place] - Effective on 11/20/2016. Expiration date unspecified Effective:20-Nov-2016 Name Dates Details Immunization Registry [place] - Effective on 11/20/2016. Expiration date unspecified Effective:20-Nov-2016 Name Dates Details Immunization Registry [place] - Effective on 11/20/2016. Expiration date unspecified Effective:20-Nov-2016 Name Dates Details Immunization Registry [place] - Effective on 11/20/2016. Expiration date unspecified Effective:20-Nov-2016 Name Dates Details Immunization Registry [place] - Effective on 11/20/2016. Expiration date unspecified Effective:20-Nov-2016 Name Dates Details Immunization Registry [place] - Effective on 11/20/2016. Expiration date unspecified Effective:20-Nov-2016 Name Dates Details Immunization Registry [place] - Effective on 11/20/2016. Expiration date unspecified Effective:20-Nov-2016 Name Dates Details Immunization Registry [place] - Effective on 11/20/2016. Expiration date unspecified Effective:20-Nov-2016 Advance Directive Response Recorded Date/ Time Advance Directives Yes April 30 9:19am Living Will Yes April 30, 2021 9:19am Power of Manager Process Improvement Yes April 30 9:19am Name Dates Details Immunization Registry [place] - Effective on 11/20/2016. 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 Expiration date unspecified Effective:20-Nov-2016 Name Dates Details Immunization Registry [place] - Effective on 11/20/2016. Expiration date unspecified Effective:20-Nov-2016 Name Dates Details Immunization Registry [place] - Effective on 12/10/2021. Expiration date unspecified Effective:10-Dec-2021 Advance Directive Response Recorded Date/ Time Advance Directives Yes April 30 8:19am Living Will No May 03, 2022 9:01am Power of Manager Process Improvement No May 03 9:01am Advance Directive Response Recorded Date/ Time Name of Medical Power of Manager Process Improvement Olga Almeida May 03, 2022 12:35pm Advance Directives Yes April 30 8:19am Living Will Yes May 03, 2022 12:35pm Power of Manager Process Improvement Yes May 03 12:35pm Name Dates Details Immunization Registry [place] - Effective on 12/10/2021. Expiration date unspecified Effective:10-Dec-2021 Advance Directive Response Recorded Date/ Time Name of Medical Power of Manager Process Improvement Olga Almeida May 03, 2022 1:35pm Advance Directives Yes April 30 9:19am Living Will No June 02, 2022 9:21pm Power of Manager Process Improvement No June 02 9:21pm Name Dates Details Immunization Registry [place] - Effective on 12/10/2021. Expiration date unspecified Effective:10-Dec-2021 Name Dates Details Immunization Registry [place] - Effective on 12/10/2021. Expiration date unspecified Effective:10-Dec-2021 Advance Directive Response Recorded Date/ Time Name of Medical Power of Manager Process Improvement Olga Almeida May 03, 2022 1:35pm Advance Directives on File Yes June 252022 8:48am Advance Directives Yes April 30 9:19am Living Will Yes July 15, 2022 8 :48am Power of Manager Process Improvement Yes July 15, 2022 8:48am Advance Directive Response Recorded Date/ Time Advance Directives on File Yes June 252022 8:48am Advance Directives Yes April 30 9:19am Living Will No September 27, 2022 11:16pm Power of Manager Process Improvement No September 27 11:16pm Name Dates Details Immunization Registry [place] - Effective on 12/10/2021. Expiration date unspecified Effective:10-Dec-2021 Advance Directive Response Recorded Date/ Time Advance Directives Yes April 30 9:19am Living Will No September 27, 2022 11:16pm Power of Manager Process Improvement No September 27 11:16pm Advance Directive Response Recorded Date/ Time Advance Directives Yes April 30 8:19am Living Will No September 27, 2022 10:16pm Power of Manager Process Improvement No September 27 10:16pm Advance Directive Response Recorded Date/ Time Advance Directives Yes April 30 9:19am Advance Directive Response Recorded Date/ Time Do you have a Healthcare Power of Manager Process Improvement? Yes July 23, 2024 2:17pm Advance Directives Yes April 30 9:19am Summary Purpose Chief Complaint and Reason for Visit Chief Complaint 1 Y FU E ORDERS/2 DOCTORS DYSPNEA MITRAL VALVE PROLAPSE, VALVE REPLACEMENT MITRAL VALVE PROLAPSE, VALVE REPLACEMENT Reason for Visit Dyspnea on exertion Essential hypertension Hyperlipidemia Nonrheumatic mitral (valve) prolapse H/O coronary artery bypass surgery Chief Complaint MITRAL VALVE PROLAPS E, VALVE REPLACEMENT MITRAL VALVE PROLAPSE, VALVE REPLACEMENT Amb Documentation Chief Complaint Amb Documentation Amb Documentation LIP SWELLING Chief Complaint Amb Documentation Amb Documentation LIP SWELLING s/p hosp RUE CHECK FOR CLOTS, S/P CATH Reason for Visit Pain and swelling of right forearm Essential hypertension Hyperlipidemia Nonrheumatic mitral (valve) prolapse H/O coronary artery bypass surgery Chief Complaint Amb Documentation LIP SWELLING s/p hosp RUE CHECK FOR CLOTS, S/P CATH 3 M FU Reason for Visit Essential hypertensi on Hyperlipidemia Nonrheumatic mitral (valve) prolapse H/O coronary artery bypass surgery Pain and swelling of right forearm History of coronary artery stent placement Essential hypertension Nonrheumatic mitral (valve) prolapse H/O coronary artery bypass surgery Chief Complaint NEW ONSET AFIB NEW ONSET AFIB Reason for Visit Atrial fibrillation, new onset History of coronary artery stent placement Essential hypertension Nonrheumatic mitral (valve) insufficiency Chief Complaint NEW ONSET AFIB NEW ONSET AFIB NEW ONSET AFIB Reason for Visit Atrial fibrillation, new onset Coronary artery disease Dyslipidemia History of coronary artery stent placement Mitral regurgitation Pulmonary hypertension Essential hypertension Hypertension Nonrheumatic mitral (valve) insufficiency Chief Complaint NEW ONSET AFIB NEW ONSET AFIB NEW ONSET AFIB new a-fib, severe MR HTN Reason for Visit Atrial fibrillation, new onset Dyslipidemia Mitral regurgitation Pulmonary hypertension Essential hypertension Nonrheumatic mitral (valve) insufficiency History of coronary artery stent placement Atrial fibrillation, new onset Mitral regurgitation Essential hypertension H/O coronary artery bypass surgery Chief Complaint NEW ONSET AFIB NEW ONSET AFIB NEW ONSET AFIB new a-fib, severe MR HTN PSA S/P Mitral Valve Repair S/P Mitral Valve Repair-clipping, Stent placement Reason for Visit Atrial fibrillation, new onset Dyslipidemia Mitral regurgitation Pulmonary hypertension Essential hypertension Nonrheumatic mitral (valve) insufficiency History of coronary artery stent placement Atrial fibrillation, new onset Mitral regurgitation Essential hypertension H/O coronary artery bypass surgery Chief Complaint NEW ONSET AFIB NEW ONSET AFIB NEW ONSET AFIB new a-fib, severe MR HTN PSA S/P Mitral Valve Repair S/P Mitral Valve Repair-clipping, Stent placement 3 M FU S/P Mitral Valve Repair-clipping, Stent placement Reason for Visit Atrial fibrillation, new onset Dyslipidemia Mitral regurgitation Pulmonary hypertension Essential hypertension Nonrheumatic mitral (valve) insufficiency History of coronary artery stent placement Atrial fibrillation, new onset Mitral regurgitation Essential hypertension H/O coronary artery bypass surgery Atrial fibrillation, new onset S/P mitral valve clip implantation Essential hypertension Hyperlipidemia H/O coronary artery bypass surgery Chief Complaint HTN PSA S/P Mitral Valve Repair S/P Mitral Valve Repair-clipping, Stent placement 3 M FU S/P Mitral Valve Repair-clipping, Stent placement S/P Mitral Valve Repair-clipping, Stent placement S/P Mitral Valve Repair-clipping, Stent placement CHEST PAIN Reason for Visit Atrial fibrillation, new onset S/P mitral valve clip implantation Essential hypertension Hyperlipidemia H/O coronary artery bypass surgery Chief Complaint PSA S/P Mitral Valve Repair S/P Mitral Valve Repair-clipping, Stent placement 3 M FU S/P Mitral Valve Repair-clipping, Stent placement S/P Mitral Valve Repair-clipping, Stent placement CHEST PAIN S/P Mitral Valve Repair-clipping, Stent placement Reason for Visit Atrial fibrillation, new onset S/P mitral valve clip implantation Essential hypertension Hyperlipidemia H/O coronary artery bypass surgery Chief Complaint Other specified post procedural states Chief Complaint E ORDERS Chief Complaint Admit Date NONRHEUMATIC MITRAL VALVE INSUFFICIENCY June 29, 2024 8:38am Chief Complaint Admit Date NONRHEUMATIC MITRAL VALVE INSUFFICIENCY June 29, 2024 8:38am COMPLAINT July 23, 2024 2:07p m Chief Complaint Admit Date NONRHEUMATIC MITRAL VALVE INSUFFICIENCY June 29, 2024 8:38am COMPLAINT July 23, 2024 2:07p m C61 Malignant neoplasm of prostate August 04, 2024 12:29pm Reason for Referral Specialty Diagnoses / Procedures Referred By Yang woods Referred To Contact CT IMAGING Diagnoses Shortness of breath Nonrheumatic mitral valve regurgitation Chronic diastolic heart failure (HCC) Procedures CT CARDIAC W IVCON CT HEART CONTRAST EVAL CARDIAC STRUCTURE&MORPH Amber Guillermo, WAREHOUSE SHIPPING ASSOCIATE.FAMILY SERVICE CENTER DIRECTOR [address] [facility] [address] [place] [address] Ct Imaging Referral ID Status Reason Start Date Expiration Date V isits Requested Visits Authorized [id number] Closed Auto-Generate d Referral 05/08/2021 06/07/2022 1 1 Medications Administered Section Inactive Administered Medications - up to 3 most recent administrations Medication Order MAR Action Action Date Dose Rate Site benzocaine 20% (TOPEX) TOPICAL, NEEDED, Starting on Fri08/08/21 at 1451, Until Fri08/08/21 at 1451 Given 08/08/2021 2:51 PM EDT 2 Sprays fentaNYL 50 mcg/mL injection (SUBLIMAZE) INTRAVENOUS, NEEDED, Starting on Fri08/08/21 at 1454, Until Fri08/08/21 at 1514 Given 08/08/2021 3:14 PM EDT 25 mcg Given 08/08/2021 3:08 PM EDT 25 mcg Given 08/08/2021 3:00 PM EDT 25 mcg lidocaine viscous 2 % (XYLOCAINE) ORAL, NEEDED, Starting on Fri08/08/21 at 1450, Until Fri08/08/21 at 1450 Given 08/08/2021 2:50 PM EDT 15 mL midazolam (PF) injection (VERSED) INTRAVENOUS, NEEDED, Starting on Fri08/08/21 at 1454, Until Fri08/08/21 at 1514 Given 08/08/2021 3:14 PM EDT 1 mg Given 08/08/2021 3:08 PM EDT 1 mg Given 08/08/2021 3:00 PM EDT 1 mg Additional Source Comments (unrecognized sect ion and content) No Status Records FoundNo Status Records FoundNo Status Records Found INFORMATION SOURCE (unrecogn ized section and content) DATE CREATED AUTHOR 04/30/2018 [facility] DATE CREATED AUTHOR AUTHOR'S ORGANIZ ATION 07/22/2024 [facility] DATE CREATED AUTHOR AUTHOR'S ORGANIZ ATION 10/06/[address] [facility] Source Comments (unrecognize d section and content) In the event this informatio n is protected by the Federal Confidentiality of Alcohol and Drug Abuse Patient Records regulations: The Federal rules restrict any use of the information to criminally investigate or prosecute any alcohol or drug abuse patient.[facility] the event this information is protected by the Federal Confidentiality of Alcohol and Drug Abuse Patient Records regulations: The Federal rules restrict any use of the information to criminally investigate or prosecute any alcohol or drug abuse patient.[facility] the event this information is protected by the Federal Confidentiality of Alcohol and Drug Abuse Patient Records regulations: The Federal rules restrict any use of the information to criminally investigate or prosecute any alcohol or drug abuse patient.[facility] the event this information is protected by the Federal Confidentiality of Alcohol and Drug Abuse Patient Records regulations: The Federal rules restrict any use of the information to criminally investigate or prosecute any alcohol or drug abuse patient.[facility] the event this information is protected by the Federal Confidentiality of Alcohol and Drug Abuse Patient Records regulations: The Federal rules restrict any use of the information to criminally investigate or prosecute any alcohol or drug abuse patient.[facility] the event this information is protected by the Federal Confidentiality of Alcohol and Drug Abuse Patient Records regulations: The Federal rules restrict any use of the information to criminally investigate or prosecute any alcohol or drug abuse patient.[facility] the event this information is protected by the Federal Confidentiality of Alcohol and Drug Abuse Patient Records regulations: The Federal rules restrict any use of the information to criminally investigate or prosecute any alcohol or drug abuse patient.[facility] the event this information is protected by the Federal Confidentiality of Alcohol and Drug Abuse Patient Records regulations: The Federal rules restrict any use of the information to criminally investigate or prosecute any alcohol or drug abuse patient.[facility] the event this information is protected by the Federal Confidentiality of Alcohol and Drug Abuse Patient Records regulations: The Federal rules restrict any use of the information to criminally investigate or prosecute any alcohol or drug abuse patient.[facility] the event this information is protected by the Federal Confidentiality of Alcohol and Drug Abuse Patient Records regulations: The Federal rules restrict any use of the information to criminally investigate or prosecute any alcohol or drug abuse patient.[facility] the event this information is protected by the Federal Confidentiality of Alcohol and Drug Abuse Patient Records regulations: The Federal rules restrict any use of the information to criminally investigate or prosecute any alcohol or drug abuse patient.[facility] the event this information is protected by the Federal Confidentiality of Alcohol and Drug Abuse Patient Records regulations: The Federal rules restrict any use of the information to criminally investigate or prosecute any alcohol or drug abuse patient.[facility] the event this information is protected by the Federal Confidentiality of Alcohol and Drug Abuse Patient Records regulations: The Federal rules restrict any use of the information to criminally investigate or prosecute any alcohol or drug abuse patient.[facility] the event this information is protected by the Federal Confidentiality of Alcohol and Drug Abuse Patient Records regulations: The Federal rules restrict any use of the information to criminally investigate or prosecute any alcohol or drug abuse patient.[facility] the event this information is protected by the Federal Confidentiality of Alcohol and Drug Abuse Patient Records regulations: The Federal rules restrict any use of the information to criminally investigate or prosecute any alcohol or drug abuse patient.[facility] the event this information is protected by the Federal Confidentiality of Alcohol and Drug Abuse Patient Records regulations: The Federal rules restrict any use of the information to criminally investigate or prosecute any alcohol or drug abuse patient.[facility] the event this information is protected by the Federal Confidentiality of Alcohol and Drug Abuse Patient Records regulations: The Federal rules restrict any use of the information to criminally investigate or prosecute any alcohol or drug abuse patient.[facility] the event this information is protected by the Federal Confidentiality of Alcohol and Drug Abuse Patient Records regulations: The Federal rules restrict any use of the information to criminally investigate or prosecute any alcohol or drug abuse patient.[facility]In the event this information is protected by the Federal Confidentiality of Alcohol and Drug Abuse Patient Records regulations: The Federal rules restrict any use of the information to criminally investigate or prosecute any alcohol or drug abuse patient.[facility]In the event this information is protected by the Federal Confidentiality of Alcohol and Drug Abuse Patient Records regulations: The Federal rules restrict any use of the information to criminally investigate or prosecute any alcohol or drug abuse patient.[facility]In the event this information is protected by the Federal Confidentiality of Alcohol and Drug Abuse Patient Records regulations: The Federal rules restrict any use of the information to criminally investigate or prosecute any alcohol or drug abuse patient.[facility]In the event this information is protected by the Federal Confidentiality of Alcohol and Drug Abuse Patient Records regulations: The Federal rules restrict any use of the information to criminally investigate or prosecute any alcohol or drug abuse patient.[facility] the event this information is protected by the Federal Confidentiality of Alcohol and Drug Abuse Patient Records regulations: The Federal rules restrict any use of the information to criminally investigate or prosecute any alcohol or drug abuse patient.[facility] the event this information is protected by the Federal Confidentiality of Alcohol and Drug Abuse Patient Records regulations: The Federal rules restrict any use of the information to criminally investigate or prosecute any alcohol or drug abuse patient.[facility] the event this information is protected by the Federal Confidentiality of Alcohol and Drug Abuse Patient Records regulations: The Federal rules restrict any use of the information to criminally investigate or prosecute any alcohol or drug abuse patient.[facility]In the event this information is protected by the Federal Confidentiality of Alcohol and Drug Abuse Patient Records regulations: The Federal rules restrict any use of the information to criminally investigate or prosecute any alcohol or drug abuse patient.[facility] HospitalIn the event this information is protected by the Federal Confidentiality of Alcohol and Drug Abuse Patient Records regulations: The Federal rules restrict any use of the information to criminally investigate or prosecute any alcohol or drug abuse patient.[facility]In the event this information is protected by the Federal Confidentiality of Alcohol and Drug Abuse Patient Records regulations: The Federal rules restrict any use of the information to criminally investigate or prosecute any alcohol or drug abuse patient.[facility]In the event this information is protected by the Federal Confidentiality of Alcohol and Drug Abuse Patient Records regulations: The Federal rules restrict any use of the information to criminally investigate or prosecute any alcohol or drug abuse patient.[facility]In the event this information is protected by the Federal Confidentiality of Alcohol and Drug Abuse Patient Records regulations: The Federal rules restrict any use of the information to criminally investigate or prosecute any alcohol or drug abuse patient.[facility]In the event this information is protected by the Federal Confidentiality of Alcohol and Drug Abuse Patient Records regulations: The Federal rules restrict any use of the information to criminally investigate or prosecute any alcohol or drug abuse patient.[facility] Reason for Visit (unrecogniz ed section and content) Reason Onset Date Comments Schedule Surgery 01/07/2014 classic right i nguinal hernia repair Reason Comments Dental Clearance Form Reason Comments Consult Reason Comments Radio Main J1 Reason Comments Radiology CT Specialty Diagnoses / Procedures Referred By Yang woods Referred To Contact CT IMAGING Diagnoses Shortness of breath Nonrheumatic mitral valve regurgitation Chronic diastolic heart failure (HCC) Procedures CT CARDIAC W IVCON CT HEART CONTRAST EVAL CARDIAC STRUCTURE&MORPH Amber Guillermo APRN.FAMILY SERVICE CENTER DIRECTOR [address] [place] [address] Ct Imaging Referral ID Status Reason Start Date Expiration Date V isits Requested Visits Authorized [id number] Closed Auto-Generate d Referral 05/08/2021 06/07/2022 1 1 Reason Comments Results Reason Comments Mitral Valve Regurgitation Specialty Diagnoses / Procedures Referred By Yang t Referred To Contact MR IMAGING Diagnoses Shortness of breath Nonrheumatic mitral valve regurgitation Chronic diastolic heart failure (HCC) Procedures MRI CARDIAC VELOCITY FLOW MAP CARDIAC MRI FOR VELOCITY FLOW MAPPING Amber Guillemro APRN.FAMILY SERVICE CENTER DIRECTOR [address] [place] [address] Mr Imaging Referral ID Status Reason Start Date Expiration Date Visits Requested Visits Authorized [id number] Authorized Auto-Generat ed Referral 05/08/2021 06/07/2022 1 1 Reason Comments TMTT Meeting Reason Comments New Patient Reason Comments Shortness of Breath Reason Comments Patient Education Reason Comments Patient Question Reason Comments Follow Up Reason Comments Appointment Reason Comments Request Outside Medical Records Reason Comments Received Outside Medical Records Records scanned in Epic Reason Comments dental clearance form Reason Comments Structural dental clearance Reason Comments returning providers call Reason Comments Valvular Heart Disease Reason Comments Hospital F/U Reason Comments Faxed over records to Dr. Rodriguez Reason Comments Echocardiogram results Goals (unrecognized section and content) Goals may be documented in a n alternate sectionGoals may be documented in an alternate sectionGoals may be documented in an alternate sectionGoals may be documented in an alternate sectionGoals may be documented in an alternate sectionGoals may be documented in an alternate sectionGoals may be documented in an alternate sectionGoals may be documented in an alternate sectionGoals may be documented in an alternate sectionGoals may be documented in an alternate sectionGoals may be documented in an alternate sectionGoals may be documented in an alternate sectionGoals may be documented in an alternate sectionGoals may be documented in an alternate section Care Teams (unrecognized sec tion and content) Research Programmer Relationship Specialty Start Date End Date Kateryna Doyle DO PCP - General Internal Medicine 12/29/13 Research Programmer Relationship Specialty Start Date End Date Hilton Jay DO [address] [facility] [address] [place] [address] PCP - General Internal Medicine 08/06/21 Dax Rodriguez [address] [place], [place] [id number] Referring Cardiology 08/08/21 Abhishek Alegria MD [address] [place] [address] Primary Staff Physician Cardiology 08/08/21 Research Programmer Relationship Specialty Start Date End Date Hilton Jay DO [address] [facility] [address] [place] [address] PCP - General Internal Medicine 08/06/21 Michael, Dax S [address] [place] [address] Referring Cardiology 08/08/21 Abhishek Alegria MD [address] [place] [address] Primary Staff Physician Cardiology 08/08/21 Research Programmer Relationship Specialty Start Date End Date Hilton Jay DO [address] [place] [address] PCP - General Internal Medicine 08/06/21 Michael, Dax S [address] [place] [address] Referring Cardiology 08/08/21 Abhishek Alegria MD [address] [place] [address] Primary Staff Physician Cardiology 08/08/21 Research Programmer Relationship Specialty Start Date End Date Hilton Jay, [address] [facility] [address] [place] [address] PCP - General Internal Medicine 08/06/21 Michael, [place] S [address] [place] [address] Referring Cardiology 08/08/21 Abhishek Alegria MD [address] [place] [address] Primary Staff Physician Cardiology 08/08/21 Research Programmer Relationship Specialty Start Date End Date Hilton Jay DO [address] [facility] [address] [place] [address] PCP - General Internal Medicine 08/06/21 Michael, Dax S [address] [place] [address] Referring Cardiology 08/08/21 Abhishek Alegria MD [address] [place] [address] Primary Staff Physician Cardiology 08/08/21 Research Programmer Relationship Specialty Start Date End Date Hilton Jay DO [address] [facility] [address] [place] [address] PCP - General Internal Medicine 08/06/21 Michael, Dax S [address] [place] [address] Referring Cardiology 08/08/21 Abhishek Alegria MD [address] [place] [address] Primary Staff Physician Cardiology 08/08/21 Research Programmer Relationship Specialty Start Date End Date Hilton Jay DO [address] [facility] [address] [place] [address] PCP - General Internal Medicine 08/06/21 Michael, [place] S [address] [place] [address] Referring Cardiology 08/08/21 Abhishek Alegria MD [address] [place] [address] Primary Staff Physician Cardiology 08/08/21 Research Programmer Relationship Specialty Start Date End Date Hilton Jay DO [address] [facility] [address] [place] [address] PCP - General Internal Medicine 08/06/21 Michael, [place] S [address] [place] [address] Referring Cardiology 08/08/21 Abhishek Alegria MD [address] [place] [address] Primary Staff Physician Cardiology 08/08/21 Research Programmer Relationship Specialty Start Date End Date Hilton Jay, DO [address] [place] [address] PCP - General Internal Medicine 08/06/21 Michael, [place] S [address] [place] [address] Referring Cardiology 08/08/21 Abhishek Alegria MD [address] [place] [address] Primary Staff Physician Cardiology 08/08/21 Research Programmer Relationship Specialty Start Date End Date Hilton Jay DO [address] [place] [address] PCP - General Internal Medicine 08/06/21 [facility], [place] S [address] [place] [address] Referring Cardiology 08/08/21 Abhishek Alegria MD [address] [place] [address] Primary Staff Physician Cardiology 08/08/21 Research Programmer Relationship Specialty Start Date End Date Hilton Jay DO [address] [place] [address] PCP - General Internal Medicine 08/06/21 Michael, [place] S [address] [place] [address] Referring Cardiology 08/08/21 Abhishek Alegria MD [address] [place] [address] Primary Staff Physician Cardiology 08/08/21 Team Status: Active Member Role Status Dates Dr. Hilton Jay , DO Family Provider Active Dr. Hilton Jay , DO Primary Care Provider Active Team Status: Active Member Role Status Dates Dr. Hilton Jay , DO Primary Care Provider Active Dr. Miguelito Aguilera , DO Emergency Provider Active Dr. Jose Lemus MD Admit Provider, At tending Provider, Other Provider Active Team Status: Active Member Role Status Dates Dr. Hilton Jay DO Primary Care Provider Active Dr. Miguelito Aguilera , DO Emergency Provider Active Dr. Jose Lemus MD Admit Provider, Attending Provid er Active Team Status: Active Member Role Status Dates Dr. Hilton Jay DO Primary Care Provider Active Dr. Michael Paula MD Attending Provider Active Team Status: Inactive Member Role Status Dates Dr. Hilton Jay DO Primary Care Provider Active Dr. Miguelito Aguilera , DO Emergency Provider Active Dr. Jose Lemus MD Admit Provider, Attending Provid er Active Research Programmer Relationship Specialty Start Date End Date Hilton Jay DO [address] [facility] [address] [place] [address] PCP - General Internal Medicine 08/06/21 MichaelCasa hinesril S [address] [place] [address] Referring Cardiology 08/08/21 Abhishek Alegria MD [address] [place] [address] Primary Staff Physician Cardiology 08/08/21 Team Status: Inactive Member Role Status Dates Dr. Hilton Jay DO Primary Care Provider, Referr ing Provider Active Dr. Dax Rodriguez MD Attending Provider Active Team Status: Inactive Member Role Status Dates Dr. Hilton Jay DO Primary Care Provider Active Dr. Kisha Velazquez MD Emergency Provider Active Research Programmer Relationship Specialty Start Date End Date Hilton Jay DO [address] [place] [address] PCP - General Internal Medicine 08/06/21 Michael, [place] S [address] [place] [address] Referring Cardiology 08/08/21 Abhishek Alegria MD [address] [place] [address] Primary Staff Physician Cardiology 08/08/21 Research Programmer Relationship Specialty Start Date End Date Hilton Jay, DO [address] [place] [address] PCP - General Internal Medicine 08/06/21 Michael, Dax S [address] [place] [address] Referring Cardiology 08/08/21 Abhishek Alegria MD [address] [place] [address] Primary Staff Physician Cardiology 08/08/21 Research Programmer Relationship Specialty Start Date End Date Hilton Jay DO [address] [place] [address] PCP - General Internal Medicine 08/06/21 Michael, Dax S [address] [place] [address] Referring Cardiology 08/08/21 Abhishek Alegria MD [address] [place] [address] Primary Staff Physician Cardiology 08/08/21 Research Programmer Relationship Specialty Start Date End Date Hilton Jay DO [address] [place] [address] PCP - General Internal Medicine 08/06/21 Michael, [place] S [address] [place] [address] Referring Cardiology 08/08/21 Abhishek Alegria MD [address] [place] [address] Primary Staff Physician Cardiology 08/08/21 Research Programmer Relationship Specialty Start Date End Date Hilton Jay, DO [address] [place] [address] PCP - General Internal Medicine 08/06/21 Michael, [place] S [address] [place] [address] Referring Cardiology 08/08/21 Abhishek Alegria MD [address] [place] [address] Primary Staff Physician Cardiology 08/08/21 Research Programmer Relationship Specialty Start Date End Date Hilton Jay DO [address] [place] [address] PCP - General Internal Medicine 08/06/21 Michael, [place] S [address] [place] [address] Referring Cardiology 08/08/21 Abhishek Alegria MD [address] [place] [address] Primary Staff Physician Cardiology 08/08/21 Research Programmer Relationship Specialty Start Date End Date Hilton Jay DO [address] [place] [address] PCP - General Internal Medicine 08/06/21 Michael, Dax S [address] [place] [address] Referring Cardiology 08/08/21 Abhishek Alegria MD [address] [place] [address] Primary Staff Physician Cardiology 08/08/21 Team Status: Inactive Member Role Status Dates Dr. Hilton Jay DO Primary Care Provider Active Dr. iKsha Velazquez MD Attending Provider, Emergency Provider Active Team Status: Inactive Member Role Status Dates Dr. Hilton Jay DO Primary Care Provider Active Diya Caba NP-C Attending Provider, Referrin g Provider Active Team Status: Inactive Member Role Status Dates Dr. Hilton Jay DO Primary Care Provider Active Abhishek Alegria MD Attending Provider, Referring P rovider Active Team Status: Active Member Role Status Dates Dr. Hilton Jay DO Primary Care Provider Active Abhishek Alegria MD Attending Provider, Referring P rovider Active Research Programmer Relationship Specialty Start Date End Date Hilton Jay DO [address] [place] [address] PCP - General Internal Medicine 08/06/21 Michael, Dax S [address] [place] [address] Referring Cardiology 08/08/21 Abhishek Alegria MD [address] [place] [address] Primary Staff Physician Cardiology 08/08/21 Research Programmer Relationship Specialty Start Date End Date Hilton Jay DO [address] [facility] [address] [place], [place] [address] PCP - General Internal Medicine 08/06/21 Dax Rodriguez [address] [place], [place] [address] Referring Cardiology 08/08/21 Abhishek Alegria MD [address] [place] [address] Primary Staff Physician Cardiology 08/08/21 Team Status: Inactive Member Role Status Dates Dr. Hilton Jay , DO Primary Care Provider Active Dr. Luis Alberto Braun , DO Emergency Provider Active Team Status: Inactive Member Role Status Dates Dr. Hilton Jay DO Primary Care Provider Active Dr. Luis Alberto Braun , DO Attending Provider, Emergency Pr ovider Active Team Status: Active Member Role Status Dates Dr. Hilton Jay DO Primary Care Provider Active Dr. Dax Rodriguez MD Attending Provider Active Team Status: Inactive Member Role Status Dates Dr. Hilton Jay DO Primary Care Provider Active Dr. Dax Rodriguez MD Attending Provider, Referring Pro vider Active Team Status: Active Member Role Status Dates Dr. Hilton Jay DO Primary Care Provider Active Team Status: Inactive Member Role Status Dates Dr. Hilton Jay DO Primary Care Provider Active Start: June 29, 2024 End: June 29, 2024 Dr. Dax Rodriguez MD Attending Provider Active S tart: June 29, 2024 End: June 29, 2024 Dr. Dax Rodriguez MD Referring Provider Active S tart: June 29, 2024 End: June 29, 2024 Team Status: Active Member Role Status Dates Dr. Hilton Jay DO Primary Care Provider Active Start: June 29, 2024 Dr. Dax Rodriguez MD Attending Provider Active S tart: June 29, 2024 Team Status: Inactive Member Role Status Dates Dr. Hilton Jay DO Primary Care Provider Active Start: July 23, 2024 End: July 23, 2024 Dr. Nhung Spring DO Referring Provider Active S tart: July 23, 2024 End: July 23, 2024 Dr. Nhung Spring DO Emergency Provider Active S tart: July 23, 2024 End: July 23, 2024 Team Status: Inactive Member Role Status Dates Dr. Hilton Jay DO Primary Care Provider Active Start: July 23, 2024 End: July 23, 2024 Dr. Nhung Spring DO Attending Provider Active S tart: July 23, 2024 End: July 23, 2024 Dr. Nhung Spring DO Referring Provider Active S tart: July 23, 2024 End: July 23, 2024 Dr. Nhung Spring DO Emergency Provider Active S tart: July 23, 2024 End: July 23, 2024 Team Status: Inactive Member Role Status Dates Dr. Hilton Jay DO Primary Care Provider Active Start: August 04, 2024 End: August 04, 2024 Dr. Brenden Paulson MD Attending Provider Active Start: August 04, 2024 End: August 04, 2024 Dr. Brenden Paulson MD Referring Provider Active Start: August 04, 2024 End: August 04, 2024 Team Status: Inactive Member Role Status Dates Dr. Hilton Jay DO Primary Care Provider Active Start: August 10, 2024 End: August 10, 2024 Dr. Brenden Paulson MD Attending Provider Active Start: August 10, 2024 End: August 10, 2024 Dr. Brenden Paulson MD Referring Provider Active Start: August 10, 2024 End: August 10, 2024 FOR RECORDS PERTAINING TO PATIENTS WHO ARE OR HAVE BEEN ENROLLED IN A CHEMICAL DEPENDENCY/SUBSTANCEABUSE PROGRAM, SOME INFORMATION MAY BE OMITTED. This clinical summary was aggregated from multiple sources. Caution should be exercised in using it in the provision of clinical care. This summary normalizes information from multiple sources, and as a consequence, information in this document may materially change the coding, format and clinical context of patient data. In addition, data may be omitted in some cases. CLINICAL DECISIONS SHOULD BE BASED ON THE PRIMARY CLINICAL RECORDS. [employer] [facility]. provides no warranty or guarantee of the accuracy or completeness of information in this document.
--- NOTE | 2024-10-08 07:17 | PCM.PRE.AN2 ---
ASA Classification* ASA Classification ASA Classification: 3 Assessment & Plan Anesthesia* Anesthesia Assessment Anesthesia Assessment: Discussed sedation and/or anesthesia options, risks, benefits, and alternatives with patient/parents/legal guardian/POA. Questions invited. The patient/parents/legal guardian/POA seems to understand and agrees to proceed with anesthesia plan. Reviewed the physical assessment, medical history, allergy history and patient home medications list prior to surgery/procedure/anesthetic and documented any changes. Performed airway and anesthesia risk assessments. Anesthesia Type Anesthesia Type: MAC History Source History Obtained from:: Patient, Chart and Significant Other Anesthesia Focused Assessment* Temperature: 97.5 F Pulse Rate: 54 Blood Pressure: 162/72 Respiratory Rate: 16 Pulse Ox: 94 Oxygen Delivery Method: Room Air Airway Assessment Mouth opens: >3 cm Mallampati Score: I Teeth Condition: Intact Neck Range of motion (ROM): Full ROM Labs Anesthesia Preop lab: CBC WBC 7.3 K/mm3 (4.4-11.0) 07/23/24 14:35 07/23/24 RBC 4.62 M/mm3 (4.6-6.2) 07/23/24 14:35 07/23/24 Hgb 15.1 g/dL (13.0-16.5) 07/23/24 14:35 07/23/24 Hct 44.1 % (40-54) 07/23/24 14:35 07/23/24 Plt Count 196 K/mm3 (150-450) 07/23/24 14:35 07/23/24 CHEMISTRY Potassium 3.9 mmol/L (3.3-5.1) 07/23/24 14:35 07/23/24 Sodium 137 mmol/L (133-145) 07/23/24 14:35 07/23/24 Magnesium 2.2 mg/dL (1.6-2.6) 09/27/22 23:40 09/27/22 BUN 23 mg/dL (4-19) H 07/23/24 14:35 07/23/24 Creatinine 1.14 mg/dL (0.70-1.20) 07/23/24 14:35 07/23/24 Glucose 116 mg/dL (70-99) H 07/23/24 14:35 07/23/24 POC Glucose 94 mg/dL (70-110) 11/26/19 12:05 01/19/19 TSH 1.37 uIU/mL (0.358-3.74) 07/18/23 11:51 07/18/23 COAG PT 13.5 SECONDS (11.7-14.9) 05/03/22 09:05 05/03/22 Pre-Assessment Diagnosis/Proposed Procedure Planned Operative Procedure(s): (B) Cysto,Retrograde,Ureteroscopy Anesthesia History Anesthesia History - special education associate: Anesthesia History - special education associate Hx Hospitalization No 09/29/24 09:12 Any Problems With Anesthesia No 09/29/24 09:12 Cholinesterase deficiency No 09/29/24 09:12 You/Your Family Experience No 09/29/24 09:12 fever (hyperthermia) with Relationship Recent Exposure to Contagious No 10/08/24 06:52 Disease Does patient have nerve No 09/29/24 09:12 stimulator Patient instructed to have device shut off --Does patient have Pacemaker No 10/08/24 06:52 or ICD? When Was Last Pacemaker Check QUESTION #4 FULL TEXT: You/Your Family Experience fever (hyperthermia) with Anesthesia Last Oral Intake Last Oral intake: Last Oral Intake NPO since 05:20 10/08/24 06:52 Meds taken in AM with sips of Yes 10/08/24 06:52 water? 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 - special education associate: PONV - special education associate Female No 09/29/24 09:12 HX of Motion Sickness No 09/29/24 09:12 HX of N/V After Surgery Yes 09/29/24 09:12 Non-Smoker Yes 09/29/24 09:12 Duration of Surgery greater No 09/29/24 09:12 than 60 minutes Number of Risk Factors 2 09/29/24 09:12 PONV Score Moderate Risk 09/29/24 09:12 Height & Weight Height & Weight: Anesthesia: Height & Weight Height 5 ft 10 in 10/08/24 06:52 Weight: 80 kg 10/08/24 06:52 Body Mass Index (BMI) 25.2 10/08/24 06:52 Respiratory Assessment Respiratory Assessment - special education associate: Respiratory Tract Infection Hx - special education associate Hx Respiratory Tract Infection No 09/29/24 09:12 STOP Sleep Apnea STOP Sleep Apnea - special education associate: STOP Sleep Apnea - special education associate Hx Hypertension Yes: CONTROLLED ON MED 09/29/24 09:12 Hx Sleep Apnea No 09/29/24 09:12 CPAP No 09/29/24 09:12 BIPAP No 09/29/24 09:12 Do you snore loudly (louder No 09/29/24 09:12 than talking or can be heard Do you often feel tired/ No 09/29/24 09:12 fatigued/ sleepy during daytime? Has anyone observed you stop No 09/29/24 09:12 breathing during sleep? STOP Results Negative 09/29/24 09:12 QUESTION #5 FULL TEXT : Do you snore loudly (louder than talking or can be heard through closed doors)? 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 Specify any problems Hx of Preganancy in last 3 No 09/29/24 09:12 Months Nurse Filling Out Transfusion VCHRISTIN 09/29/24 09:12 & Questions: Date: 09/29/24 09/29/24 09:12 Time: 09:14 09/29/24 09:12 Patient unable to answer at this time (ie. 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 - special education associate: /Reproductive Hx- special education associate Hx Now No 09/29/24 09:12 Gestational Age (in weeks): EDC: Hx Hx Para Hx Section SAB No 09/29/24 09:12 Active Medications Active Medications: Current Medications Generic Name Dose Route Start Last Admin Trade Name Freq PRN Reason Stop Dose Admin Cefazolin Sodium 2 gm/ Sodium 110 mls @ 200 mls/hr 10/08/24 08:20 Chloride IV 10/08/24 08:52 INTRAOP ONE Lactated Ringer's 1,000 mls @ 15 mls/hr 10/08/24 06:30 [facility] History (Updated 09/29/24 @ 09:12 by Cassy Richard) Wears hearing aid Wears glasses Thyroid disease Kidney stones High cholesterol Easy bruising Excessive bleeding Non-smoker Hx of transesophageal echocardiography (DARCY) for monitoring History of echocardiogram History of stress test Hypertension Cardiology follow-up encounter History of atrial fibrillation Wears hearing aid in both ears Incontinence of urine Old inferolateral myocardial infarction Nonrheumatic mitral (valve) insufficiency Essential hypertension Hypothyroidism Atherosclerosis of coronary artery bypass graft of [place] heart without angina pectoris Hyperlipidemia Atherosclerotic heart disease of [place] coronary artery without angina pectoris Nonrheumatic mitral (valve) prolapse Elevated PSA Urgency-frequency syndrome Prostate cancer Home Medications ?Medication ?Instructions ?Recorded ?Last Taken ?Type multivitamin with folic acid 400 1 tab PO DAILY SUPPLEMENT 01/14/14 10/07/24 History mcg tablet latanoprost 0.005 % eye drops 1 drp EACH EYE QHS EYES 01/03/17 10/07/24 History omega-3 fatty acids-fish oil 684 1 ea PO DAILY SUPPLEMENT 01/03/17 10/07/24 History mg-1,200 mg capsule,delayed release cinnamon bark 500 mg capsule 500 mg PO DAILY 10/07/18 10/07/24 History magnesium oxide 500 mg capsule 500 mg PO DAILY 10/07/18 10/07/24 History vitamin B complex 1 tab PO DAILY 10/07/18 10/07/24 History epinephrine 0.3 mg/0.3 mL 0.3 mg IM X1 PRN Allergic Reaction 09/20/21 Unknown History injection, auto-injector cholecalciferol (vitamin D3) 62.5 125 mcg PO DAILY 05/07/22 10/07/24 History mcg (2,500 unit) capsule coenzyme Q10 100 mg tablet 100 mg PO DAILY 08/16/22 10/07/24 History nitroglycerin 0.4 mg sublingual 0.4 mg sublingual Q5M PRN chest 08/22/23 Unknown Rx tablet (Nitrostat) pain #25 tabs apixaban 5 mg tablet (Eliquis) 5 mg PO BID #180 TABLETS 05/27/24 10/04/24 Rx levothyroxine 100 mcg tablet 100 mcg PO DAILY THYROID #90 tabs 08/20/24 10/08/24 Rx clopidogrel 75 mg tablet 75 mg PO DAILY #90 tabs 08/24/24 09/30/24 Rx metoprolol tartrate 25 mg tablet 12.5 mg (1/2 x 25 mg) PO BID BP 08/24/24 10/08/24 Rx #90 tabs rosuvastatin 5 mg tablet 5 mg PO QHS for cholesterol #90 08/24/24 10/07/24 Rx TABLETS amlodipine 5 mg tablet 2.5 mg PO DAILY 09/29/24 10/08/24 History Allergy/AdvReac Type Severity Reaction Status Date / Time bee venom protein (honey bee) Allergy Unknown hives/anaph Verified 10/08/24 06:40 ylaxis ramipril Allergy Angioedema Verified 10/08/24 06:40 Family History Father , of Rohini's disease Acadia's disease Mother , Age 60 of [place] CAD (coronary artery disease) Myocardial infarction Brother CAD (coronary artery disease) history of cabg Brother CAD (coronary artery disease) Stented coronary artery Diabetes Sister CAD (coronary artery disease) Myocardial infarction Hypertension Surgical History (Updated 09/29/24 @ 09:11 by Cassy Richard) Hx of elbow surgery History of robot-assisted laparoscopic radical prostatectomy S/P mitral valve clip implantation Status post mitral valve repair (06/26/22) History of coronary artery stent placement (09/14/21) H/O coronary artery bypass surgery (11/1994) History of left heart catheterization (04/30/21) Social History (Updated 07/23/24 @ 14:17 by Pamela Lanza) household members: spouse housing: house Smoking Status: Never smoker alcohol intake: current alcohol intake frequency: other Alcohol type: beer and wine caffeine: Yes Type: coffee Number of servings: 3 Review of Systems (Anesthesia) ROS Narrative System reviewed and no additional complaints, except as documented.
--- NOTE | 2024-10-08 08:00 | DCINST_ITS ---
Discharge Instructions DC O2, CPAP, BIPAP needs Home O2 Discharge instructions: No Dressing / Incision Discharge Activity: Return to Normal Activity and May Not Drive (while taking narcotic pain medications.) Dressing / Incision Call your doctor if you observe: Fever of 101 or Higher Follow Up Care Please Follow Up With: Brenden Linares MD When: Call [phone] for an appointment Test Results: Test results from this visit will be discussed in further detail at your follow- up appointment, if applicable. Discharge Plan Admission Primary Reason for Your Visit: cystoscopy Attending Provider: Brenden Linares Primary Care Provider: Shira Borjas Instructions Print Language: Luxembourger Discharge Orders/Prescriptions Prescriptions: Continued cholecalciferol (vitamin D3) 62.5 mcg (2,500 unit) capsule 125 mcg PO DAILY coenzyme Q10 100 mg tablet 100 mg PO DAILY multivitamin with folic acid 1 TABLET tablet 1 tab PO DAILY latanoprost 1 DROP bottle 1 drp EACH EYE QHS omega-3 fatty acids-fish oil 1 EACH capsule,delayed release(DR/EC) 1 ea PO DAILY Patient Comments: STOP PRIOR TO OR vitamin B complex 1 EACH tablet 1 tab PO DAILY cinnamon bark 500 MG capsule 500 mg PO DAILY magnesium oxide 500 MG capsule 500 mg PO DAILY epinephrine 0.3 mg/0.3 mL auto-injector 0.3 mg IM X1 PRN (Reason: Allergic Reaction) amlodipine 5 mg tablet 2.5 mg PO DAILY nitroglycerin [Nitrostat] 0.4 mg tablet, sublingual 0.4 mg SUBLINGUAL Q5M PRN (Reason: chest pain) Qty: 25 3RF Eliquis 5 mg tablet 5 mg PO BID Qty: 180 3RF Patient Comments: STOP 3 DAYS PRIOR TO PROCEDURE levothyroxine 100 mcg tablet 100 mcg PO DAILY Qty: 90 3RF rosuvastatin 5 mg tablet 5 mg PO QHS Qty: 90 3RF clopidogrel 75 mg tablet 75 mg PO DAILY Qty: 90 3RF metoprolol tartrate 25 mg tablet 12.5 mg PO BID Qty: 90 3RF Referrals / Follow Up: Brenden Linares MD [Med Staff - Active Staff] - Shira Borjas DO [Primary Care Provider] - Disposition Disposition (needs filled in before D/C Order can be placed): Home, Self Care
[2024-10-08] MEDS: Lactated Ringers 500 ML IV (08:01)
[2024-10-08] MEDS: Cefazolin 1 GM/5 ML Vial 2 GM IV (08:04)
[2024-10-08] MEDS: Lidocaine 1% (5 ml sdv) 5 ML Vial 10 ML IV (08:05)
[2024-10-08] MEDS: fentaNYL 100 MCG/2 ML Ampul 50 MCG IV (08:05)
--- NOTE | 2024-10-08 08:14 | OP.PCM_ITS ---
Operative Report (Standard) Operative Information Date of Procedure: 10/08/24 Pre-Operative Diagnosis: Gross hematuria recurrent Post-Operative Diagnosis: The same Surgery/Procedure Performed: Cystoscopy bilateral retrogrades pyelograms network admin: No Type of Anesthesia: General RN Documented Start/Stop Times: Operation Date: 10/08/24 08:20 Case Time Into Pre-Op 10/08/24 06:26 Procedure Start Time: 08:08 Procedure Stop Time: 08:13 Select all DRAINS/GRAFTS/IMPLANTS that apply: None Estimated Blood Loss: None Specimen collected: No Description of surgery: Is a 79-year-old male who is on heavy blood thinners has a history of a radical prostatectomy he does have stress incontinence because of this and has reported recurrent gross hematuria CAT scan was done which was normal office cystoscopy was done which was normal he continued to have recurrent episodes of bleeding so organ to proceed with a cystoscopy and bilateral retrograde pyelograms possible ureteroscopy if necessary. Patient was taken back to the operating room after induction of anesthesia was placed in dorsolithotomy position penis and testicles were prepped and draped in usual fashion went into the bladder with a 21 Burmese rigid cystourethroscope the entire length the urethra was normal prostate was absent sphincter was intact inside the bladder trujillo cystoscopy was performed normal no tumors or lesions seen within the bladder trigone was normal left and right ureteral orifice normal position I then cannulated the left ureteral orifice with a 5 Burmese open-ended Pollick catheter performed a retrograde pyelogram this turned out to be completely normal with no filling defects, drained also draining normal then cannulated the right ureteral orifice with a 5 Burmese open-ended Pollick catheter performed a retrograde pyelogram in that side again no filling defects are seen in the right kidney completely normal catheter was removed bladder was drained patient anesthetic was reversed and went spoke to the family let him know that all the findings were negative the cause of the hematuria is unclear but he does take significant blood thinners that could be causing the bleeding. Surgical Findings: Normal cystoscopy, normal right and left retrograde pyelograms no source of bleeding found Complications Complications: No Admit VTE Documentation VTE Present on Admission: No VTE Mechan Device Prophylaxis: SCD's VTE Pharm Prophylaxis ordered?: No
--- NOTE | 2024-10-08 08:27 | PCM.POST.ANE ---
Anesthesia: Postop Eval I Current Vital Signs Temperature: 96.9 F Pulse Rate: 50 Blood Pressure: 111/62 Respiratory Rate: 15 Pulse Ox: 95 Assessment Airway patent: Yes Spontaneous unlabored respirations: Yes nausea: No Vomiting: No Anesthesia Complication: No Fluid Hydration Crystalloid volume administer (ml): 200 Total IV fluid infused: 200 Progress Note Anesthesia document: Postop Eval 1 completed: Yes
--- NOTE | 2024-10-08 09:11 | POSTOPAN2_ITS ---
Anesthesia Postop Eval I Sum Postop Eval Completion status Anesthesia document: Postop Eval 1 completed: Yes Anesthesia Postop Eval I Summary Anesthesia Postop Eval I Summary: Anesthesia Postop Eval I: Assessment Summary Airway patent Yes 10/08/24 08:27 DUE DILIGENCE COORDINATOR.KCRO Spontaneous unlabored Yes 10/08/24 08:27 DUE DILIGENCE COORDINATOR.KCRO respirations Mental status nausea No 10/08/24 08:27 DUE DILIGENCE COORDINATOR.KCRO Vomiting No 10/08/24 08:27 DUE DILIGENCE COORDINATOR.KCRO Anesthesia Postop Eval I: Fluid Summary Crystalloid volume administer 200 10/08/24 08:27 DUE DILIGENCE COORDINATOR.KCRO (ml) Colloids volume administered ( ml) Blood Product volume administered (ml) Total IV fluid infused 200 10/08/24 08:27 DUE DILIGENCE COORDINATOR.KCRO Anesthesia Postop Eval I: Summary Notes Anesthesia Complication No 10/08/24 08:27 DUE DILIGENCE COORDINATOR.KCRO Anesthesia Complication Comment: Post-operative progress note Anesthesia: Postop Eval II Evaluation Mental status: Awake and Calm Pain Level: 0 nausea: No Vomiting: No Progress Note Post-operative progress note: meets discharge criteria Complications Anesthesia Complication: No
--- NOTE | 2024-10-08 09:11 | PCM.POSTANE2 ---
Anesthesia Postop Eval I Sum Postop Eval Completion status Anesthesia document: Postop Eval 1 completed: Yes Anesthesia Postop Eval I Summary Anesthesia Postop Eval I Summary: Anesthesia Postop Eval I: Assessment Summary Airway patent Yes 10/08/24 08:27 HEAT SET OPERATOR.KCRO Spontaneous unlabored Yes 10/08/24 08:27 HEAT SET OPERATOR.KCRO respirations Mental status nausea No 10/08/24 08:27 HEAT SET OPERATOR.KCRO Vomiting No 10/08/24 08:27 HEAT SET OPERATOR.KCRO Anesthesia Postop Eval I: Fluid Summary Crystalloid volume administer 200 10/08/24 08:27 HEAT SET OPERATOR.KCRO (ml) Colloids volume administered ( ml) Blood Product volume administered (ml) Total IV fluid infused 200 10/08/24 08:27 HEAT SET OPERATOR.KCRO Anesthesia Postop Eval I: Summary Notes Anesthesia Complication No 10/08/24 08:27 HEAT SET OPERATOR.KCRO Anesthesia Complication Comment: Post-operative progress note Anesthesia: Postop Eval II Evaluation Mental status: Awake and Calm Pain Level: 0 nausea: No Vomiting: No Progress Note Post-operative progress note: meets discharge criteria Complications Anesthesia Complication: No
== END 2024-10-08 10:04 | disposition home or self-care (01) ==
LOC: SDC 06:20 → AC 06:20
PROVIDERS: PCP Internal Medicine; Referring Provider Urology; Visit Provider Urology
PROC: (CPT 52332; principal; 2024-10-08 08:10)
DX: R31.0 Gross hematuria (principal); Z79.01 Long term (current) use of anticoagulants; Z79.02 Long term (current) use of antithrombotics/antiplatelets; Z79.899 Other long term (current) drug therapy; Z85.46 Personal history of malignant neoplasm of prostate; N39.3 Stress incontinence (female) (male); I10 Essential (primary) hypertension; I25.10 Atherosclerotic heart disease of native coronary artery without angina pectoris; E78.00 Pure hypercholesterolemia, unspecified; Z79.890 Hormone replacement therapy
CPT/HCPCS: 52351; 00910; 76000; 93005; C1769; J2405

== ENCOUNTER → 2024-11-01 | Outpatient (CLI) | payer MEDICARE, OTHER, SELFPAY ==
[2022-09-11 11:24] VITALS: BMI 25.0
[2024-11-01 10:59] LABS: Mucous, Urine 0 SEEN /hpf (<or=2+); Squamous Epithelial Cells - UA 0 SEEN /hpf (0-5)
[2024-11-01 12:42] LABS: Color, Urine Yellow (Yellow); Glucose, Dipstick Normal (Normal); Ketone-Dipstick Negative (Negative); Leukocyte Esterase-Dipstick Negative /ul (Negative); Nitrite-Dipstick Negative (Negative); Occult Blood-Urine 250 /ul (Negative); Protein-Dipstick 30 mg/dl (Negative); Specific Gravity, Urine 1.015 (1.002-1.030); Urine Bilirubin Dipstick Negative (Negative)
[2024-11-01 12:46] LABS: Creatinine, Urine (random) 144.00 mg/dL (39.00-259.00); Microalbumin,Random Urine 69.2 mg/L (<20 mg/L)
[2024-11-01 13:05] LABS: Red Blood Cells-Urine 25-50 SEEN /hpf (0-5)
[2024-11-01 15:08] LABS: Hematocrit 48.3 % (40-54); Hemoglobin 16.1 g/dL (13.0-16.5); Immature Granulocytes Count 0.020 X10^3/uL (0.0-0.0); Mean Corp Hgb Conc 33.3 g/dL (32-36); Mean Corpuscular Volume 96.0 fL (80-94); Mean Platelet Vol. 10.6 fl (6.2-12.0); NRBC Flagged by Analyzer 0 % (0-5); Platelet Count 229 K/mm3 (150-450); RBC Distribution Width CV 13.6 % (11.6-14.6); RBC Distribution Width SD 48.7 fl (35.1-43.9); Red Blood Count 5.03 M/mm3 (4.6-6.2); White Blood Count 8.9 K/mm3 (4.4-11.0)
[2024-11-01 15:56] LABS: AST(SGOT) 30 U/L (<=37); Alanine Aminotransfer ALT/SGPT 23 U/L (<=46); Albumin, Serum 4.2 g/dL (3.4-4.8); Alkaline Phosphatase 46 U/L (40-129); Anion Gap 9 (5-15); BUN 19 mg/dL (4-19); BUN/Creat Ratio 16.6 RATIO (10-20); Calcium,Total 9.5 mg/dL (7.6-11.0); Carbon Dioxide 23.9 mmol/L (21.0-32.0); Chloride 106 mmol/L (98-108); Cholesterol 137 mg/dL (<=200); Globulin 2.7 g/dL (2.2-4.2); Glucose 95 mg/dL (70-99); Low Density Lipoprotein Calc. 69 mg/dL; Potassium 4.7 mmol/L (3.3-5.1); Triglycerides 127 mg/dL; Very Low Density Lipoprotein 25 mg/dL (5-40); Vitamin B12 573 pg/mL (180-914); Vitamin D,25 Hydroxy 64.3 ng/mL (30-100); cholesterol:hdl ratio screen 3.21
== END | disposition home or self-care (01) ==
LOC: MTLAB 10:46
PROVIDERS: PCP Internal Medicine; Referring Provider Internal Medicine; Visit Provider Internal Medicine
DX: I10 Essential (primary) hypertension (principal); E78.00 Pure hypercholesterolemia, unspecified; E03.9 Hypothyroidism, unspecified; E55.9 Vitamin D deficiency, unspecified; R53.83 Other fatigue
CPT/HCPCS: 36415; 80053; 80061; 81001; 82043; 82306; 82570; 82607; 84443; 85025